=== PATIENT | male | born 1930 ===

== ENCOUNTER 2016-11-18 10:43 | Inpatient (IN) | payer MEDICARE, MEDICAID ==
[2016-11-18] MEDS ORDERED: Sodium Chloride 0.9% 500 ML IV STA (11:31)
[2016-11-18] MEDS ORDERED: methylPREDNISolone 1 GM in Sodium Chloride 0.9% 250 ML IV ONE (11:33)
--- NOTE | 2016-11-18 11:46 | ED PDOC ---
Arrival/HPI - General Chief Complaint: Cough, Cold, Congestion Time Seen by Provider: 11/18/16 11:17 - History of Present Illness Narrative History of Present Illness (Text): 11/18/16 11:37 86 y/o M w/ PMHx of HTN, COPD, PNA, TIA presents to the ED at direction of PMD. Pt was seen in office yesterday was instructed to come to the ED for CXR to r/o PNA. Family @bedside states that pt has had cough x1mon. Family reports pt chills but no fever. Pt denies CP, SOB but family states that during coughing episode, pt unable to catch his breath. Family reports occasional sputum production, especially during coughing episode. Family states that pt has been taking all medications as prescribed. (Cristina Artis) Past Medical History - Provider Review Nursing Documentation Reviewed: Yes - Infectious Disease Hx of Infectious Diseases: None - Tetanus Immunization Tetanus Immunization: Unknown - Cardiac Hx Cardiac Disorders: Yes Hx Hypertension: Yes - Pulmonary Hx Respiratory Disorders: Yes (SMOKED CIGARETTES .QUIT 20 YRS AGO) - Neurological HX Cerebrovascular Accident: Yes (TIA) - HEENT Hx HEENT Disorder: Yes (WEARS RX GLASSES) Hx Cataracts: Yes (WITH BILATERAL IMPLANTS) - Renal Hx Renal Failure: Yes - Endocrine/Metabolic Hx Endocrine Disorders: No - Hematological/Oncological Hx Blood Disorders: No - Integumentary Hx Dermatological Disorder: Yes (MULTIPLE ROUND OLD AGE SPOTS TO FACE,ARMS) - Musculoskeletal/Rheumatological Hx Arthritis: Yes - Gastrointestinal Hx Gastrointestinal Disorders: No - Genitourinary/Gynecological Hx Genitourinary Disorders: Yes Hx Prostate Problems: Yes - Psychiatric Hx Psychophysiologic Disorder: No Hx Substance Use: No - Past Surgical History Past Surgical History: No Previous - Anesthesia Hx Anesthesia: No - Suicidal Assessment Feels Threatened In Home Enviroment: No Family/Social History - Physician Review Nursing Documentation Reviewed: Yes Family/Social History: No Known Family HX Smoking Status: Former Smoker Hx Alcohol Use: Yes (OCCASIONAL WINE H/O) Hx Substance Use: No Hx Substance Use Treatment: No Allergies/Home Meds Allergies/Adverse Reactions: Allergies No Known Allergies Allergy (Verified 11/18/16 10:52) Home Medications: Home Meds Medication Instructions Recorded Confirmed Aspirin [Aspirin Chewable] 81 mg PO DAILY 03/30/16 11/18/16 Ergocalciferol [Drisdol 50,000 1 cap PO DAILY 10/19/16 06/09/17 Intl Units Cap] Fluticasone/Salmeterol 500/50 1 puff PO Q12 03/30/16 11/18/16 [Advair Diskus 500/50] Bisacodyl [Correctol] 5 mg PO BID PRN 11/18/16 11/18/16 Losartan Potassium [Losartan 50 mg PO DAILY 11/18/16 11/18/16 Potassium] Review of Systems - Physician Review All systems were reviewed & negative as marked: Yes - Review of Systems Cardiovascular: absent: Chest Pain Gastrointestinal: absent: Nausea, Vomiting Physical Exam Vital Signs Reviewed: Yes Temperature: Afebrile Blood Pressure: Hypertensive Pulse: Regular Respiratory Rate: Normal Appearance: Positive for: Non-Toxic, Comfortable, Ill-Appearing Pain Distress: None Mental Status: Positive for: Alert and Oriented X 3 - Systems Exam Head: Present: Atraumatic, Normocephalic Pupils: Present: PERRL Extroacular Muscles: Present: EOMI Conjunctiva: Present: Normal Mouth: Present: Moist Mucous Membranes Nose (External): Present: Atraumatic Respiratory/Chest: Present: Good Air Exchange, Wheezes (L basilar), Rhonchi (L basilar). No: Respiratory Distress, Accessory Muscle Use Cardiovascular: Present: Regular Rate and Rhythm, Normal S1, S2. No: Murmurs Abdomen: Present: Normal Bowel Sounds. No: Tenderness, Distention Upper Extremity: Present: Normal Inspection Lower Extremity: Present: Normal Inspection, NORMAL PULSES. No: Edema Neurological: Present: GCS=15, Speech Normal Skin: Present: Warm, Dry, Normal Color Psychiatric: Present: Alert, Normal Affect, Normal Mood Medical Decision Making - Lab Interpretations I have reviewed the lab results: Yes - EKG Interpretation Interpreted by ED Physician: Yes Type: 12 lead EKG ED Course and Treatment: 11/18/16 11:48 86 y/o M w/ cough - CXR - EKG - CBC, CMP - Cardiac ISO, - Duonebs x3 - Solumedrol 125 (Cristina Artis) Patient Seen With Resident: In agreement with resident note which contains more details about the patient. Patient was seen and evaluated with resident. Came up with plan and treatment together. 11/18/16 13:36 pt seen with resdient. h/o of copd, aspiration pna, sent in by pm d for copd r/ o pna. cxr neg, but covered empiraclly. pt with persistent wheezing. poor outpt canndiate. needs iv steriods admission. multiple comorbities. (Ryan Alegre) - Lab Interpretations Lab Results: 11/18/16 11:58 11/18/16 11:58 Lab Results 11/18/16 12:50: PT 10.8, INR 1.00, APTT 27.0 11/18/16 12:10: pO2 94 H, VBG pH 7.39, VBG pCO2 44.0, VBG HCO3 26.6, VBG Total CO2 28.0, VBG O2 Sat (Calc) 99.2 H, VBG Base Excess 1.2, VBG Potassium 3.6, Glucose 104, Lactate 1.9, FiO2 21.0, Sodium 142.0, Chloride 113.0 H, Venous Blood Potassium 3.6 11/18/16 11:58: Sodium 143, Potassium 3.8, Chloride 109 H, Carbon Dioxide 26, Anion Gap 12, BUN 11, Creatinine 1.0, Est GFR ( Amer) > 60, Est GFR (Non- Af Amer) > 60, Random Glucose 109, Calcium 9.1, Total Bilirubin 1.0, AST 30, ALT 26, Alkaline Phosphatase 61, Lactate Dehydrogenase 456, Total Creatine Kinase 32 L, Troponin I 0.03 D, NT-Pro-B Natriuret Pep 792 H, Total Protein 6.9 , Albumin 3.8, Globulin 3.1, Albumin/Globulin Ratio 1.2 11/18/16 11:58: WBC 10.4, RBC 4.60, Hgb 13.0 L, Hct 39.0 L, MCV 84.8, MCH 28.3, MCHC 33.3, RDW 15.9 H, Plt Count 242, MPV 9.8, Gran % 73.8 H, Lymph % (Auto) 17.7 L, Hughes % (Auto) 6.7 H, Eos % (Auto) 1.6, Baso % (Auto) 0.2, Gran # 7.69 H , Lymph # 1.9, Hughes # 0.7 H, Eos # 0.2, Baso # 0.02 - RAD Interpretation Narrative RAD Interpretations (Text): 11/18/16 12:37 CXR: no active disease (Cristina Artis) Radiology Orders: 11/18/16 11:33 CXR [CHEST PORTABLE] [RAD] Stat - EKG Interpretation EKG Interpretation (Text): 11/18/16 12:38 NSR, Rate 70, incomplete RBBB (Cristina Artis) - Medication Orders Current Medication Orders: Albuterol/Ipratropium (Duoneb 3 Mg/0.5 Mg (3 Ml) Ud) 3 ml IH Q4 RYLIE Stop: 11/18/16 20:01 Last Admin: 11/18/16 12:40 Dose: 3 ml Discontinued Medications Furosemide (Lasix) 40 mg IVP STAT STA Stop: 11/18/16 12:51 Last Admin: 11/18/16 12:57 Dose: 40 mg Sodium Chloride (Sodium Chloride 0.9%) 500 mls @ 999 mls/hr IV .Q31M STA Stop: 11/18/16 12:01 Last Admin: 11/18/16 12:15 Dose: 999 mls/hr Metronidazole (Flagyl) 500 mg in 100 mls @ 100 mls/hr IVPB STAT STA PRN Reason: Protocol Stop: 11/18/16 12:51 Last Admin: 11/18/16 12:40 Dose: 100 mls/hr Levofloxacin/Dextrose (Levaquin 750mg) 750 mg IVPB ONCE ONE Stop: 11/18/16 11:56 Methylprednisolone (Solu-Medrol) 125 mg IVP STAT STA Stop: 11/18/16 11:37 Last Admin: 11/18/16 12:40 Dose: 125 mg Disposition/Present on Arrival - Present on Arrival Any Indicators Present on Arrival: No History of DVT/PE: No History of Uncontrolled Diabetes: No Urinary Catheter: No History of Decub. Ulcer: No History Surgical Site Infection Following: None - Disposition Have Diagnosis and Disposition been Completed?: Yes Disposition Time: 12:38 Patient Plan: Observation - Disposition Diagnosis: COPD exacerbation Disposition: HOSPITALIZED Patient Problems: Current Active Problems Problem Status Onset COPD exacerbation Acute Condition: STABLE
[2016-11-18] MEDS ORDERED: metroNIDAZOLE IV 500 mg/100 ml 500 MG/100 ML BAG IVPB STA (11:52)
[2016-11-18] MEDS ORDERED: levoFLOXacin 750 mg in D5W 150 ML BAG IVPB ONE (11:55)
[2016-11-18] MEDS ORDERED: levoFLOXacin 750 mg in D5W 150 ML BAG IVPB SCH (12:00)
[2016-11-18 12:19] LABS: ADD MANUAL DIFF? NO
[2016-11-18 12:21] LABS: BASO # 0.02 K/mm3 (0.0-2.0); BASO % 0.2 % (0.0-3.0); EOS # 0.2 (0.0-0.7); EOS % 1.6 % (1.5-5.0); GRAN # 7.69 (1.4-6.5); GRAN % 73.8 % (50.0-68.0); LYMPH # 1.9 (1.2-3.4); LYMPH % 17.7 % (22.0-35.0); MEAN CELL VOLUME 84.8 fL (80.0-105.0); MEAN CORPUSCULAR HEMOGLOBIN 28.3 pg (25.0-35.0); MEAN CORPUSCULAR HGB CONC 33.3 g/dl (31.0-37.0); MEAN PLATELET VOLUME 9.8 fl (7.0-11.0); MONO # 0.7 (0.1-0.6); MONO % 6.7 % (1.0-6.0); PLATELET COUNT 242 10^3/uL (120.0-450.0); RED CELL DISTRIBUTION WIDTH 15.9 % (11.5-14.5); WHITE BLOOD COUNT 10.4 10^3/ul (4.5-11.0)
[2016-11-18 12:22] LABS: VENOUS BLOOD GAS BASE EXCESS 1.2 mmol/L (0.0-2.0); VENOUS BLOOD PH 7.39 (7.32-7.43)
--- NOTE | 2016-11-18 12:31 | RAD ---
HISTORY: cough COMPARISON: 08/09/2016 FINDINGS: LUNGS: No active pulmonary disease. PLEURA: No significant pleural effusion identified, no pneumothorax apparent. CARDIOVASCULAR: Normal. OSSEOUS STRUCTURES: No significant abnormalities. VISUALIZED UPPER ABDOMEN: Normal. OTHER FINDINGS: None. IMPRESSION: No active disease.
[2016-11-18 12:36] LABS: ALB/GLOB RATIO 1.2 (1.1-1.8); ALKALINE PHOSPHATASE 61 U/L (38-133); ALT/SGPT 26 U/L (7-56); AST/SGOT 30 U/L (15-59); BLOOD UREA NITROGEN 11 mg/dL (7-21); CALCIUM 9.1 mg/dL (8.4-10.5); CARBON DIOXIDE 26 mmol/L (21-33); CHLORIDE 109 mmol/L (98-107); GFR AFRICAN-AMERICAN > 60; GLUCOSE,RANDOM 109 mg/dL (70-110); POTASSIUM 3.8 mmol/L (3.6-5.0); SODIUM 143 mmol/L (132-148); TOTAL PROTEIN 6.9 g/dL (5.8-8.3)
[2016-11-18] MEDS: Albuterol-Ipratrop 3 mg / 0.5 (3 ml) UD IH SCH ×2 (12:40→19:30)
[2016-11-18 12:48] LABS: TROPONIN I 0.03 ng/mL
--- NOTE | 2016-11-18 15:17 | CARD ---
APPROVED REPORT EKG Measurement Heart [id number] <Conclusion> Normal sinus rhythm IRBBB Leftward axis
[2016-11-18] MEDS: Acetylcysteine 20% Inhal Soln (4ml) PO SCH (18:40)
[2016-11-18] MEDS: Arformoterol 15 mcg/2 ml Inh Sol IH SCH (19:30)
[2016-11-18] MEDS: Budesonide 0.5 mg/2 ml Inhal Susp UD IH SCH (19:30)
[2016-11-18 20:29] VITALS: BMI 27.7
--- NOTE | 2016-11-18 21:01 | CON ---
DATE: 11/18/2016 REFERRING PHYSICIAN: Dr. Aguilar. REASON FOR CONSULT: Cough, shortness of breath. HISTORY OF PRESENT ILLNESS: This is an 86-year-old gentleman with past medical history significant for hypertension, chronic obstructive lung disease, recurrent pneumonia, history of TIA. He has been having cough and shortness of breath, unable to clear pulmonary secretion. No nausea, no vomiting, no diarrhea, no leg pain or leg swelling. PAST MEDICAL HISTORY: Chronic obstructive lung disease, hypertension, osteoarthritis, chronic pain s yndrome. SOCIAL HISTORY: He is a smoker. Denies any alcohol use. FAMILY HISTORY: No significant cardiopulmonary disease reported. ALLERGIES: None known. MEDICATIONS: He has received nebulizer treatment in ER, given Solu-Medrol 125 mg 1 dose, Levaquin 7 50 mg daily, Lasix 40 mg was given, also Flagyl 500 mg IV was given. REVIEW OF SYSTEMS: No headache, no rhinitis. Has cough, shortness of breath. No fever, some abdomi nal discomfort, but no nausea, no vomiting, no dysuria. No leg pain or leg swelling. PHYSICAL EXAMINATION: GENERAL: Lying in the bed, mild distress secondary to cough and shortness of breath. VITAL SIGNS: Temp is 98, heart rate is 87, respiratory rate is 20, blood pressure 158/87, pulse ox 9 7% on nasal cannula. HEENT: Moist mucous membrane. Crowded airway. Mallampati score is 4. NECK: Supple. No JVD. LUNGS: Has scattered rhonchi and some crackles. HEART: S1 and S2. ABDOMEN: Soft, nontender. No organomegaly. EXTREMITIES: There is not much edema. NEUROLOGIC: Awake, alert, follows simple commands. LABORATORY DATA: Shows hemoglobin 13.0, hematocrit 39.0, WBC 10.4, platelet count is 242. INR 1.00, PTT is 27. ABG showed pH 7.39, pCO2 44, O2 was 94. Sodium 143, potassium 3.8, chloride 100, bicarb eleonora 26, BUN 11, creatinine 1.0, glucose 109, calcium is 9.1, AST 30, ALT 26, alkaline phosphatase i s 26. LDH is 456, total creatinine kinase is 32, albumin is 3.8. ProBNP 792. Procalcitonin less th an 0.05. Chest x-ray done in the ER shows no active pulmonary disease. IMPRESSION AND PLAN: Chronic obstructive lung disease, hypertension, benign prostatic hypertrophy, d ementia, cardiac diastolic dysfunction, may have oropharyngeal dysphagia. I spoke to patient's son a t bedside. All the questions were answered. We will start him on IV steroids and inhaled bronchodil ator. Gastric prophylaxis. DVT prophylaxis. Diuretics. ____ his blood pressure medication. The p atient is urged to stop smoking. Will get speech therapy to evaluate. Follow up labs in the morning . Thank you and will follow with you. Dl Lynch MD cc: [phone] TT: 11/18/2016 21:00:33 Confirmation # [id number] Dictation # [id number] jn
[2016-11-18] MEDS: MethylPREDNISolone 40 mg Vial IVP SCH (22:05)
[2016-11-19] MEDS: MethylPREDNISolone 40 mg Vial IVP SCH ×3 (06:10→21:25)
[2016-11-19] MEDS: Pantoprazole 40 mg EC Tab PO SCH (06:10)
[2016-11-19 06:54] LABS: ADD MANUAL DIFF? NO
[2016-11-19 07:08] LABS: GRAN % 87.9 % (50.0-68.0); HEMATOCRIT 40.9 % (42.0-52.0); LYMPH # 1.2 (1.2-3.4); LYMPH % 10.6 % (22.0-35.0); MEAN CORPUSCULAR HEMOGLOBIN 28.6 pg (25.0-35.0); MEAN CORPUSCULAR HGB CONC 34.5 g/dl (31.0-37.0); MEAN PLATELET VOLUME 10.1 fl (7.0-11.0); MONO # 0.2 (0.1-0.6); MONO % 1.5 % (1.0-6.0); PLATELET COUNT 275 10^3/uL (120.0-450.0); RED CELL DISTRIBUTION WIDTH 15.8 % (11.5-14.5); WHITE BLOOD COUNT 11.2 10^3/ul (4.5-11.0)
[2016-11-19 07:16] LABS: ALB/GLOB RATIO 1.3 (1.1-1.8); ALKALINE PHOSPHATASE 72 U/L (38-133); ALT/SGPT 29 U/L (7-56); AST/SGOT 31 U/L (15-59); BILIRUBIN,TOTAL 0.9 mg/dL (0.2-1.3); BLOOD UREA NITROGEN 16 mg/dL (7-21); CALCIUM 9.1 mg/dL (8.4-10.5); CARBON DIOXIDE 25 mmol/L (21-33); CHLORIDE 102 mmol/L (98-107); GFR AFRICAN-AMERICAN > 60; GLUCOSE,RANDOM 145 mg/dL (70-110); POTASSIUM 4.3 mmol/L (3.6-5.0); SODIUM 138 mmol/L (132-148); TOTAL PROTEIN 7.3 g/dL (5.8-8.3)
[2016-11-19] MEDS: Arformoterol 15 mcg/2 ml Inh Sol IH SCH ×2 (08:02→21:19)
[2016-11-19] MEDS: Budesonide 0.5 mg/2 ml Inhal Susp UD IH SCH ×2 (08:03→21:20)
[2016-11-19] MEDS: Enoxaparin 40 mg Syringe SC SCH (09:33)
[2016-11-19] MEDS ORDERED: Ergocalciferol 50,000 Intl Units Cap PO SCH (10:00)
[2016-11-19] MEDS: Acetylcysteine 20% Inhal Soln (4ml) PO SCH ×2 (12:07→18:19)
--- NOTE | 2016-11-19 17:03 | PN ---
DATE: 11/19/2016 REFERRING PHYSICIAN: Dr. Scherer SUBJECTIVE: He is sitting side of the bed, feels better, tolerated BiPAP well. Cough decreased. Sh ortness of breath is better. No nausea, no vomiting, no diarrhea, no leg pain or leg swelling. OBJECTIVE: GENERAL: No acute distress. VITAL SIGNS: Temperature is 98, heart rate is 98, respiratory rate is 20, blood pressure 167/77, pul se ox 97% on BiPAP at 35% oxygen. HEENT: Small oral cavity. Crowded airway. NECK: Supple. No JVD. LUNGS: Has a few crackles, prolonged expiratory phase. HEART: S1 and S2. ABDOMEN: Soft, nontender. No organomegaly. EXTREMITIES: Not much edema. NEUROLOGIC: Awake, alert, follows simple command. MEDICATIONS: He is on Mucomyst 20% inhaled twice a day, aspirin 81 mg daily, Brovana mcg inhal ed twice a day, Cozaar 50 mg daily, doxycycline 100 mg twice a day, vitamin D 50,000 units daily, Las ix 20 mg daily, Lovenox 40 mg subQ daily, Protonix 40 mg daily, Pulmicort inhaled twice a day, Solu-M edrol 40 mg IV q. 8 hours, Tylenol on a p.r.n. basis. LABORATORY DATA: Shows hemoglobin 14.1, hematocrit 40.9, WBC 11.2, platelets 275. Sodium 138, potas sium 4.3, chloride 102, bicarbonate 25, BUN 16, creatinine 1.2, glucose is 145, calcium 9.1, AST 31, ALT , alkaline phosphatase is 72, and albumin is 4.0. Chest x-ray shows no infiltrate or effusi on. IMPRESSION AND PLAN: Chronic obstructive lung disease, hypertension, benign prostatic hypertrophy, d ementia, cardiac diastolic dysfunction, may have oropharyngeal dysphagia. Pulmonary point of view, génesis stone is doing much better. Continue IV and inhaled bronchodilator. We will decrease the dose. Gastric and deep venous thrombosis prophylaxis, antibiotics. Encourage BiPAP use at nighttime. We will ord er followup labs in the morning and will follow with you. Dl Lynch MD cc: [phone] TT: 11/19/2016 17:03:04 Confirmation # [id number] Dictation # [id number] dn
[2016-11-19] MEDS ORDERED: guaiFENesin 100 mg/5 ml Syrup UD PO STA (21:04)
[2016-11-20] MEDS: Pantoprazole 40 mg EC Tab PO SCH (05:33)
[2016-11-20] MEDS: MethylPREDNISolone 40 mg Vial IVP SCH ×3 (05:33→21:39)
--- NOTE | 2016-11-20 07:25 | PN ---
DATE: 11/19/2016 SUBJECTIVE: The patient seems a little better. Feels better. Less respiratory distress and his cou solomon is ____. PHYSICAL EXAMINATION: VITAL SIGNS: Temperature 98.3, heart rate 98, blood pressure 167/77, respiration 20. HEAD AND NECK: Normal. No JVD or thyromegaly. CHEST: Clear. Less wheeze. CARDIAC: First sound, second sound normal. ABDOMEN: Soft, nontender. EXTREMITIES: No edema. NEUROLOGIC: Normal. LABORATORY DATA: Sodium 138, potassium 4.3, chloride 102, bicarb 25, BUN 16, creatinine 1.2, blood s ugar 145. Liver function test is normal. His hematology, CBC: White count 11.2, hemoglobin 14.1, h ematocrit 40.9, platelets 272. PT, PTT was normal. ABG shows pO2 of 94, pH 7.39, pCO2 44. IMPRESSION AND PLAN: 1. Acute chronic obstructive pulmonary disease exacerbation. Continue IV steroids. Continue inhale d bronchodilators. Currently, the patient ____ is getting doxycycline 100 mg IV daily. The patient seems to be doing better. Will continue current therapy. 2. Hypertension, uncontrolled. Will increase his Cozaar to 100 mg daily, Norvasc ____ added 2.5 mg and increase to 5 mg. Will follow up clinically. 3. Generalized weakness. Will start physical therapy. Continue GI and DVT prophylaxis. Follow up with consultants. 4. Dementia. Will add ____. Continue aspirin. The patient does have a history of stroke with no r esidual deficits. Continue aspirin daily 81 mg p.o. daily. Cody Aguilar MD cc: [phone] TT: 11/20/2016 07:24:50 Confirmation # [id number] Dictation # [id number] mn
[2016-11-20] MEDS: Budesonide 0.5 mg/2 ml Inhal Susp UD IH SCH ×2 (07:49→20:08)
[2016-11-20] MEDS: Arformoterol 15 mcg/2 ml Inh Sol IH SCH ×2 (07:49→20:08)
[2016-11-20 07:50] LABS: ALB/GLOB RATIO 1.3 (1.1-1.8); ALKALINE PHOSPHATASE 64 U/L (38-133); ALT/SGPT 29 U/L (7-56); AST/SGOT 37 U/L (15-59); BILIRUBIN,TOTAL 0.8 mg/dL (0.2-1.3); BLOOD UREA NITROGEN 25 mg/dL (7-21); CALCIUM 8.7 mg/dL (8.4-10.5); CARBON DIOXIDE 22 mmol/L (21-33); CHLORIDE 101 mmol/L (95-110); GFR AFRICAN-AMERICAN > 60; GLUCOSE,RANDOM 111 mg/dL (70-110); POTASSIUM 3.6 mmol/L (3.6-5.0); SODIUM 137 mmol/L (132-148); TOTAL PROTEIN 7.1 g/dL (5.8-8.3)
[2016-11-20] MEDS: Acetylcysteine 20% Inhal Soln (4ml) PO SCH ×2 (09:54→17:50)
[2016-11-20] MEDS: Enoxaparin 40 mg Syringe SC SCH (14:40)
--- NOTE | 2016-11-20 17:38 | PN ---
DATE: 11/20/2016 REFERRING PHYSICIAN: Dr. Aguilar. SUBJECTIVE: He is sitting side of the bed. Family is at bedside, having lunch, feels a little ariel r, decreased cough, decreased shortness of breath. No nausea, vomiting, diarrhea. No leg pain or le g swelling. OBJECTIVE: GENERAL: In no acute distress. VITAL SIGNS: Temp is 98, heart rate 74, respiratory rate is 18, blood pressure 184/88, pulse ox 93% on room air. HEENT: Moist mucous membrane. Crowded airway. Mallampati score is 4. NECK: Supple. No JVD. LUNGS: Has a fair airflow with few crackles at the bases, prolonged expiratory phase. HEART: S1, S2. ABDOMEN: Soft, nontender. No organomegaly. EXTREMITIES: There is no edema. NEUROLOGIC: Awake, alert, follows simple commands. MEDICATIONS: He is on Mucomyst 20% inhaled by ID, Aricept 5 mg at bedtime, aspirin 81 mg daily, Brov babita 15 mcg inhaled twice a day, clonidine 0.1 mg q. 6 hours p.r.n., Cozaar 100 mg daily, doxycycline 100 mg twice a day, vitamin D 50,000 units weekly, Lasix 20 mg daily, Lovenox 40 mg daily, Norvasc 10 mg daily, Protonix 40 mg daily, Pulmicort inhaled twice a day, Solu-Medrol 20 mg q. 8 hours, Tylenol p.r.n. basis. LABORATORY DATA: Shows sodium 137, potassium 3.6, chloride 101, bicarbonate 22, BUN 25, creatinine 1 .3, glucose 111, calcium 8.7, total bilirubin 0.8, AST 37, ALT 29, alk phos is 64, albumin is 4.0. IMPRESSION AND PLAN: Chronic obstructive lung disease, hypertension, benign prostatic hypertrophy, d ementia, cardiac diastolic dysfunction, oropharyngeal dysphagia. Pulmonary point of view, doing well . Continue IV and inhaled bronchodilator, aspiration precautions, gastric prophylaxis, deep venous t hrombosis prophylaxis, diuretics. Encourage BiPAP use. Fall precautions. Thank you and will follow with you. Dl Lynch MD cc: [phone] TT: 11/20/2016 17:38:34 Confirmation # [id number] Dictation # [id number] rn
--- NOTE | 2016-11-21 00:29 | PN ---
DATE: 11/20/2016 HISTORY OF PRESENT ILLNEES: The patient seems to be doing better. No chest pain. Still coughing, b ut less than before. PHYSICAL EXAMINATION: VITAL SIGNS: Temperature 97.7, heart rate 74, blood pressure 184/88, respirations 18. HEAD AND NECK: Normal. No JVD, no thyromegaly. CHEST: Few rhonchi. CARDIAC: First and second sounds normal. ABDOMEN: Soft, nontender. EXTREMITIES: No edema. NEUROLOGIC: Normal. LABORATORY STUDIES: Sodium 137, potassium 3.6, chloride 101, bicarbonate 22, BUN 25, creatinine 1.3, blood sugar 111, liver function test is normal. IMPRESSION AND PLAN: 1. Acute chronic obstructive pulmonary disease exacerbation. Continue IV steroids. Continue inhale d bronchodilators, IV antibiotics, seems to be doing better. 2. Hypertension seems uncontrolled. Will add Norvasc 10 mg. Follow up blood pressure daily basis. 3. Generalized weakness. Needs physical therapy. TCU evaluation for physical therapy. 4. Prostate enlargement, dementia, has weakness. PLAN: To continue current therapy, Aricept, Tylenol. Continue Lasix, losartan, Catapres, Brovana, a spirin, Aricept, Mucomyst. Continue current therapy and follow up clinically. Cody Aguilar MD cc: 223 TT: 11/21/2016 00:28:41 Confirmation # [id number] Dictation # [id number] mn
[2016-11-21] MEDS: MethylPREDNISolone 40 mg Vial IVP SCH ×3 (05:29→23:07)
[2016-11-21] MEDS: Pantoprazole 40 mg EC Tab PO SCH (05:30)
[2016-11-21] MEDS: Arformoterol 15 mcg/2 ml Inh Sol IH SCH ×2 (08:18→19:51)
[2016-11-21] MEDS: Budesonide 0.5 mg/2 ml Inhal Susp UD IH SCH ×2 (08:19→19:51)
--- NOTE | 2016-11-21 08:51 | HP ---
His main reason for coming to the hospital is coughing, short of breath. Please be advised that hist ory and physical I am dictating was on 11/18/2016. HISTORY OF PRESENT ILLNESS: The patient is an 86-year-old male, history of COPD, hypertension, demen tia, chronic osteoarthritis. Came into the hospital because of short of breath, cough and not gettin g better with Medrol pack, Z-Tyson and nebulizer treatment at home. The patient came today ____ compla ined of ____. He has no fever ____ persistent cough that he could not sleep at night. There is no c hest pain. He feels weak. No nausea, no vomiting, no diarrhea. PAST MEDICAL HISTORY: The patient has COPD, hypertension, dementia, chronic osteoarthritis. ALLERGIES: No known allergies. HOME MEDICATIONS: He takes ____ 50 mg p.o. daily, ____ p.o. daily, ____ nebulizer treatment, Advair, Ventolin, vitamin D, aspirin, Aricept. REVIEW OF SYSTEMS: As in present illness. The patient has dementia, has memory loss, has weakness, gait problem. PHYSICAL EXAMINATION: On 11/18/2016: VITAL SIGNS: The patient has temperature 97.6, heart rate 72, blood pressure ____/81, respirations 2 0, saturation 96% on room air. HEAD AND NECK: Normal, no JVD. CHEST: Bilateral wheeze. CARDIAC: First sound, second sound normal. ABDOMEN: Soft, nontender. EXTREMITIES: No edema. NEUROLOGIC: Except for dementia, the patient is awake and alert. LABORATORY STUDIES: The patient had on 11/18/2016 white count 10.4, hemoglobin 13, hematocrit 39, yakov telets 242. Chemistry: Sodium 143, potassium 3.8, chloride 109, bicarb 26, BUN 11, creatinine ____. Liver function test is normal. Troponin 0.03, a little bit elevated. ProBNP 792. The patient also had a chest x-ray, which is reported as no active pulmonary disease. The patient al so had an EKG done in Emergency Room, shows ____ sinus rhythm ____. IMPRESSION AND PLAN: 1. This is an 86-year-old male with history of dementia, chronic obstructive pulmonary disease, fail ed outside treatment for chronic obstructive pulmonary disease. Came in with acute chronic obstructi ve pulmonary disease exacerbation. Will admit the patient for IV antibiotics, IV steroids, inhaled b ronchodilators, pulmonary consult. 2. Blood pressure, hypertension. Controlled with ____ blood pressure medicine. Monitor his blood p ressure. Continue therapy. 3. Generalized weakness. The patient may need physical therapy. Continue Lasix 20 p.o. daily. Con tinue gastrointestinal and deep venous thrombosis prophylaxis. Follow up clinically. Cody Aguilar MD cc: 223 TT: 11/20/2016 08:50:42 en
[2016-11-21] MEDS: Acetylcysteine 20% Inhal Soln (4ml) PO SCH (10:49)
[2016-11-21] MEDS: Enoxaparin 40 mg Syringe SC SCH (10:55)
--- NOTE | 2016-11-22 02:07 | PN ---
DATE: 11/21/2016 REFERRING PHYSICIAN: Dr. Aguilar. SUBJECTIVE: The patient is sitting on side of the bed, night was unremarkable. No headache, no rhin itis, no nausea, no vomiting, no diarrhea. No leg pain or leg swelling. OBJECTIVE: GENERAL: No acute distress. VITAL SIGNS: Temp is 98, heart rate 65, respiratory rate is 18, blood pressure 117/68. HEENT: Moist mucous membrane. No ulcer or oral thrush noted. NECK: Supple. No JVD. LUNGS: Has a fair airflow with few rhonchi. HEART: S1 and S2. ABDOMEN: Soft, nontender. No organomegaly. EXTREMITIES: There is no edema. NEUROLOGIC: Awake, alert, follows simple command. MEDICATIONS: He is on Mucomyst 20% inhaled twice a day, Aricept 5 mg at bedtime, aspirin 81 mg daily , Brovana 15 mcg inhaled twice a day, clonidine 0.1 mg q. 6 hours p.r.n., Cozaar 100 mg daily, doxycy eubanks 100 mg twice a day, vitamin D 50,000 units weekly, Lasix 20 mg daily, Lovenox 40 mg daily, Norv asc 10 mg daily, Protonix 40 mg daily, Pulmicort inhaled twice a day, Solu-Medrol 20 mg IV q. 8 hours , Tylenol on a p.r.n. basis. LABORATORY DATA: Reviewed. No new lab is available since yesterday. IMPRESSION AND PLAN: Chronic obstructive lung disease, hypertension, benign prostatic hypertrophy, d ementia, cardiac diastolic dysfunction, oropharyngeal dysphagia. Pulmonary point of view, doing okay y. Continue diuretics, gastric and deep venous thrombosis prophylaxis, bronchodilators. Encourage B iPAP use. Will need attended sleep study as an outpatient. Start physical therapy. Fall precaution s. Thank you and will follow with you. Dl Lynch MD cc: 336 TT: 11/22/2016 02:07:13 Confirmation # [id number] Dictation # [id number] mn
[2016-11-22] MEDS: MethylPREDNISolone 40 mg Vial IVP SCH ×3 (06:07→21:41)
[2016-11-22] MEDS: Pantoprazole 40 mg EC Tab PO SCH (06:08)
[2016-11-22] MEDS: Arformoterol 15 mcg/2 ml Inh Sol IH SCH ×2 (07:47→19:36)
[2016-11-22] MEDS: Budesonide 0.5 mg/2 ml Inhal Susp UD IH SCH ×2 (07:47→19:36)
[2016-11-22] MEDS: Enoxaparin 40 mg Syringe SC SCH (10:31)
[2016-11-22] MEDS: Promethazine/Cod 6.25mg-10mg/5ml Syr UD PO SCH ×3 (16:20→21:41)
--- NOTE | 2016-11-22 19:22 | PN ---
DATE: 11/22/2016 REFERRING PHYSICIAN: Dr. Aguilar. SUBJECTIVE: The patient is lying in the bed, head at 45 degrees, not very compliant with the BiPAP, has a cough, not much sputum production. No nausea, no vomiting, diarrhea. No leg pain or leg swell ing. OBJECTIVE: GENERAL: No acute distress. VITAL SIGNS: Temp is 98, heart rate is 65, respiratory rate is 18, blood pressure of 129/64, pulse o x 96% on 2 liters nasal cannula. HEENT: Moist mucous membranes. Crowded airway. NECK: Supple. No JVD. LUNGS: Has scattered rhonchi. HEART: S1 and S2. ABDOMEN: Soft, nontender. No organomegaly. EXTREMITIES: There is no edema. NEUROLOGIC: Awake, alert, follows simple command. MEDICATIONS: He is on Mucomyst 20% inhaled twice a day, Aricept 5 mg at bedtime, aspirin 81 mg daily , Brovana 15 mcg inhaled twice a day, clonidine 0.1 mg q. 6 hours p.r.n., Cozaar 100 mg daily, doxycy eubanks 100 mg twice a day, vitamin D 50,000 units weekly, Lasix 20 mg daily, Lovenox 40 mg daily, Norv asc 10 mg daily, promethazine with codeine and q.i.d., Protonix 40 mg daily, Pulmicort inhaled twice a day, Solu-Medrol 20 mg q. 8 hours, Tylenol on a p.r.n. basis. LABORATORY DATA: Reviewed and noted. No new lab is available since yesterday. IMPRESSION AND PLAN: Chronic obstructive lung disease, hypertension, benign prostatic hypertrophy, d ementia, cardiac diastolic dysfunction, oropharyngeal dysphagia. Continue to encourage CPAP use. Ke ep head elevated at 45 degrees. Continue diuretics, intravenous and inhaled bronchodilators, supplem ental oxygen. Follow up labs in the morning. Out of bed to chair. Fall precaution. Thank you and we will follow with you. Dl Lynch MD cc: 336 TT: 11/22/2016 19:21:45 Confirmation # [id number] Dictation # [id number] tn
[2016-11-22] MEDS: Acetylcysteine 20% Inhal Soln (4ml) IH SCH (19:36)
[2016-11-23] MEDS: MethylPREDNISolone 40 mg Vial IVP SCH ×3 (05:45→22:11)
[2016-11-23] MEDS: Pantoprazole 40 mg EC Tab PO SCH (05:45)
[2016-11-23 07:06] LABS: HEMATOCRIT 40.6 % (42.0-52.0); MEAN CORPUSCULAR HEMOGLOBIN 28.2 pg (25.0-35.0); MEAN PLATELET VOLUME 10.1 fl (7.0-11.0); RED CELL DISTRIBUTION WIDTH 15.8 % (11.5-14.5); WHITE BLOOD COUNT 12.4 10^3/ul (4.5-11.0)
[2016-11-23 07:11] LABS: ALB/GLOB RATIO 1.2 (1.1-1.8); ALKALINE PHOSPHATASE 56 U/L (38-133); ALT/SGPT 52 U/L (7-56); AST/SGOT 37 U/L (15-59); BLOOD UREA NITROGEN 29 mg/dL (7-21); CARBON DIOXIDE 26 mmol/L (21-33); CHLORIDE 103 mmol/L (95-110); GFR AFRICAN-AMERICAN > 60; GLUCOSE,RANDOM 112 mg/dL (70-110); POTASSIUM 3.5 mmol/L (3.6-5.0); SODIUM 138 mmol/L (132-148); TOTAL PROTEIN 6.1 g/dL (5.8-8.3)
[2016-11-23] MEDS: Budesonide 0.5 mg/2 ml Inhal Susp UD IH SCH ×2 (08:05→19:19)
[2016-11-23] MEDS: Arformoterol 15 mcg/2 ml Inh Sol IH SCH ×2 (08:05→19:18)
[2016-11-23] MEDS: Acetylcysteine 20% Inhal Soln (4ml) IH SCH ×2 (08:05→19:18)
[2016-11-23] MEDS: Enoxaparin 40 mg Syringe SC SCH (09:54)
[2016-11-23] MEDS: Promethazine/Cod 6.25mg-10mg/5ml Syr UD PO SCH ×4 (09:54→22:12)
--- NOTE | 2016-11-23 10:44 | PN ---
DATE: 11/21/2016 The patient is doing better, less coughing, no chest pain, but still coughing. PHYSICAL EXAMINATION: On 11/21/2016 is as follows: VITAL SIGNS: Temperature is 98.2, heart rate 61, blood pressure 121/62, respirations 19, saturating 96% on 3 liters. HEAD AND NECK: Normal. No JVD, no thyromegaly. CHEST: Clear. Few rhonchi right and left, both lungs. CARDIAC: First and second sounds normal. ABDOMEN: Soft. EXTREMITIES: No edema. NEUROLOGIC: Generally weak. LABORATORY DATA: Last labs were white count 11.2, hemoglobin 14.1, hematocrit 40.9, platelets 275. His chemistry noted for sodium 137, potassium 3.6, chloride 101, bicarbonate 22, BUN 25, creatinine 1 .3, blood sugar is 111. Liver function test is normal. IMPRESSION AND PLAN: 1. Acute chronic obstructive pulmonary disease exacerbation. Continue IV steroids. Continue IV ant ibiotics. The patient seems to be improving. Continue Mucomyst and we may add Phenergan with codein e for his cough. 2. Hypertension. Continue current treatment, Norvasc 10 mg plus Cozaar. Blood pressure is stable. Clonidine p.r.n. 3. History of fluid overload, congestive heart failure in the past. Continue Lasix. 4. History of transient ischemic attack, dementia. Continue aspirin, Aricept. Getting physical the rapy . Cody Aguilar MD cc: 223 TT: 11/23/2016 10:44:01 Confirmation # [id number] Dictation # [id number]
--- NOTE | 2016-11-23 10:50 | PN ---
DATE: 11/22/2016 The patient is an 86-year-old male. He is comfortable, less coughing now. He is very weak, still on steroids and inhaled bronchodilators, feels better, waiting for TCU. PHYSICAL EXAMINATION: VITAL SIGNS: Temperature 98, heart rate 71, blood pressure is 155/79, respiration 19. HEAD AND NECK: Normal. No JVD, no thyromegaly. CHEST: Clear, good air entry. A few rhonchi on the bases, otherwise clear. CARDIAC: First sound, second sound normal. ABDOMEN: Soft, nontender. EXTREMITIES: No edema. NEUROLOGIC: Normal. LABORATORY DATA: For tomorrow. IMPRESSION AND PLAN: 1. Acute chronic obstructive pulmonary disease exacerbation. Continue IV and inhaled bronchodilator s, continue nebulizer treatment. 2. Generalized weakness. The patient is getting physical therapy. TCU evaluation for continuation of physical therapy and IV therapy. 3. Hypertension, hypercholesterolemia. Continue current medications, Norvasc and Cozaar. 4. History of transient ischemic attacks, dementia. Continue Aricept. Continue aspirin and follow up clinically. The patient is stable. Continue current treatment. We will follow up clinically. Cody Aguilar MD cc: 223 TT: 11/23/2016 10:49:19 Confirmation # [id number] Dictation # [id number]
[2016-11-23] MEDS ORDERED: Potassium Chloride 20 mEq ER Tab PO ONE (13:31)
--- NOTE | 2016-11-23 15:16 | PN ---
DATE: 11/23/2016 REFERRING PHYSICIAN: Dr. Aguilar SUBJECTIVE: He is lying in the bed, head at 45 degrees, still has some cough and shortness of breath . No nausea, vomiting, diarrhea. No leg pain or leg swelling. OBJECTIVE: GENERAL: No acute distress. VITAL SIGNS: Temperature is 98, heart rate is 60, respiratory rate is 20, blood pressure 134/64. HEENT: Moist mucous membrane. Crowded airway. NECK: Supple. No JVD. LUNGS: Scattered rhonchi. HEART: S1 and S2. ABDOMEN: Soft, nontender. No organomegaly. EXTREMITIES: There is no edema. NEUROLOGIC: Sleepy, arousable, follows simple commands. MEDICATIONS: He is on Mucomyst 20% inhaled twice a day, Aricept 5 mg at bedtime, aspirin 81 mg daily , Brovana 15 mcg inhaled twice a day, clonidine 0.1 mg q. 6 hours p.r.n., Cozaar 100 mg daily, doxy cycline 100 mg twice a day, vitamin D 50,000 units weekly, Lasix 20 mg daily, Lovenox 40 mg daily, No rvasc 10 mg daily, Phenergan with codeine 5 mL q.i.d., Protonix 40 mg daily, Pulmicort inhaled twice a day, Solu-Medrol 20 mg q. 8 hours, Tylenol on a p.r.n. basis. LABORATORY DATA: Shows hemoglobin 13.8, hematocrit 40.6, WBC 12.4, platelet is 242. Sodium 138, pot assium 3.5, chloride 103, bicarbonate 26, BUN 29, creatinine 1.1, glucose 112, calcium 8.0, AST 37, A LT 52, alkaline phosphatase is 56, albumin is 3.3. IMPRESSION AND PLAN: Chronic obstructive lung disease, hypertension, benign prostatic hypertrophy, d ementia, cardiac diastolic dysfunction, oropharyngeal dysphagia, may have sleep apnea syndrome, does not use CPAP. We will decrease Solu-Medrol to 20 q. hours. Continue a small dose of diuretics, gas tric prophylaxis. Fall precaution. Aspiration precaution. Thank you and will follow with you. Dl Lynch MD cc: [phone] TT: 11/23/2016 15:15:15 Confirmation # [id number] Dictation # [id number]
[2016-11-24] MEDS: Pantoprazole 40 mg EC Tab PO SCH (05:34)
[2016-11-24 06:03] VITALS: O2SAT 95
[2016-11-24] MEDS: Arformoterol 15 mcg/2 ml Inh Sol IH SCH (07:39)
[2016-11-24] MEDS: Acetylcysteine 20% Inhal Soln (4ml) IH SCH (07:39)
[2016-11-24] MEDS: Budesonide 0.5 mg/2 ml Inhal Susp UD IH SCH (07:39)
--- NOTE | 2016-11-24 08:52 | PN ---
DATE: 11/23/2016 The patient seems to be doing well. Less short of breath, less cough. He is comfortable. No distre ss. PHYSICAL EXAMINATION: VITAL SIGNS: Temperature is 98, heart rate is 56, blood pressure 110/54, respirations 20, saturation 94% on nasal cannula. HEAD AND NECK: Normal. No JVD, no thyromegaly. CHEST: Clear, good air entry. CARDIAC: First sound, second sound normal. ABDOMEN: Soft, nontender. EXTREMITIES: No edema. NEUROLOGIC: Normal. LABORATORY DATA: White count 12.4, hemoglobin 13.8, hematocrit 40.6, platelets 242. Chemistry: Sod ium 138, potassium 3.5, chloride 103, bicarb 26, BUN 29, creatinine 1.2. Liver function test is norm al. IMPRESSION AND PLAN: 1. Acute chronic obstructive pulmonary disease exacerbation. Continue IV steroids, inhaled bronchod ilators. The patient is doing much better now. He is on doxycycline. 2. Hypertension. Continue Cozaar 100 mg p.o. daily in addition to amlodipine 10 mg p.o. daily. 3. Dementia, history of transient ischemic attack. Continue aspirin, continue Aricept. 4. Generalized weakness. Continue physical therapy. Continue GI and DVT prophylaxis. The patient seems stable. He needs TCU. If we can get him some time there to help him with the gait and physica l therapy it will be better. Continue current treatment. Continue Lasix 20 mg p.o. daily. Cody Aguilar MD cc: 223 TT: 11/24/2016 08:51:36 Confirmation # [id number] Dictation # [id number]
[2016-11-24] MEDS: Enoxaparin 40 mg Syringe SC SCH (10:41)
[2016-11-24] MEDS: Promethazine/Cod 6.25mg-10mg/5ml Syr UD PO SCH ×2 (10:42→14:42)
[2016-11-24] MEDS: MethylPREDNISolone 40 mg Vial IVP SCH (10:42)
[2016-11-24 12:59] VITALS: BP 134/67; PULSE 57; RESP 20; TEMP 98.5
--- NOTE | 2016-11-25 14:17 | DS ---
The patient clinically stable and improving. He has decreased short of breath, decrease coughing, af ebrile, no distress and seems to be doing very well. PHYSICAL EXAMINATION: VITAL SIGNS: On 11/24, temperature 98.5, heart rate 57, blood pressure 134/67, respirations 20, satu ration 97%. HEAD AND NECK: Normal. No JVD, no thyromegaly. CHEST: Clear. CARDIAC: First and second heart sounds normal. ABDOMEN: Soft, nontender. EXTREMITIES: No edema. NEUROLOGIC: Normal, able to walk. LABORATORY DATA: The patient had a chest x-ray, shows no pneumonia. Last lab shows white count 12.4 , hemoglobin 16.8, hematocrit 40.6, platelets 242. Chemistry showed sodium 138, potassium 3.5, chlor fl[place] 103, bicarbonate 26, BUN 29, creatinine 1.1, blood sugar 112. Potassium was corrected. ABGs, pO 2 94, pH 7.39, pCO2 44. Lactic acid 1.9 on room air. DISCHARGE DIAGNOSES: Acute chronic obstructive pulmonary disease exacerbation. PLAN: 1. Discharge the patient on Medrol pack, the patient has it, and Levaquin p.o. 2. Hypertension. 3. Hypercholesterolemia. 4. Dementia. MEDICATIONS: The patient has all his meds which include losartan, nebulizers and inhalers, Advair, v itamin D, Levaquin, Medrol pack, and Norvasc 10 mg. We will see the patient in the office within a week. Cody Aguilar MD cc: 223 TT: 11/25/2016 14:16:24 ln
== END 2016-11-24 15:57 | disposition home or self-care (01) | DRG 191 ==
LOC: ED 10:43 → ERH 12:51 → 2RNO 15:23
PROVIDERS: ADMIT Internal Medicine; ATTEND Internal Medicine
PROC: 5A09357 Assistance with Respiratory Ventilation, Less than 24 Consecutive Hours, Continuous Positive Airway Pressure (ICD-10-PCS; principal; 2016-11-18)
DX: J44.1 Chronic obstructive pulmonary disease with (acute) exacerbation (principal); I50.30 Unspecified diastolic (congestive) heart failure; I11.0 Hypertensive heart disease with heart failure; M19.90 Unspecified osteoarthritis, unspecified site; G89.4 Chronic pain syndrome; F03.90 Unspecified dementia, unspecified severity, without behavioral disturbance, psychotic disturbance, mood disturbance, and anxiety; N40.0 Benign prostatic hyperplasia without lower urinary tract symptoms; R13.12 Dysphagia, oropharyngeal phase; E78.00 Pure hypercholesterolemia, unspecified; G47.30 Sleep apnea, unspecified; F17.200 Nicotine dependence, unspecified, uncomplicated; R53.1 Weakness; Z79.82 Long term (current) use of aspirin; Z86.73 Personal history of transient ischemic attack (TIA), and cerebral infarction without residual deficits

== ENCOUNTER 2016-12-06 16:08 | Inpatient (IN) | payer MEDICAID, MEDICARE ==
[2016-12-06 16:08] VITALS: BMI 27.7
--- NOTE | 2016-12-06 16:24 | ED PDOC ---
Arrival/HPI - General Time Seen by Provider: 12/06/16 16:10 Historian: EM Caveat: Dementia - History of Present Illness Narrative History of Present Illness (Text): 12/06/16 16:21 86 y/o male, pmh including htn/copd/bph/demantia/osteoarthritis/TIA, nkda, recently discharged from the hospital about 10 days ago, biba with the daughter for increase coughing/fever/fatigue and decrease in appetize for the past 2 days. Pt. is on the po levaquin on day 7 at home as per the daughter, been decrease in energy and decrease in appetize for the past 2 days, coughing excessively, started to have fever today with febrile 101.5F in the ER, no recent traveling, no nausea or vomiting, no diarrhea, no rash, no neck stiffness , no other medical or psychological complaints. Past Medical History - Provider Review Nursing Documentation Reviewed: Yes - Infectious Disease Hx of Infectious Diseases: None - Tetanus Immunization Tetanus Immunization: Unknown - Cardiac Hx Hypertension: Yes - Pulmonary Hx Chronic Obstructive Pulmonary Disease (COPD): Yes - Neurological Hx Transient Ischemic Attacks (TIA): Yes - HEENT Hx Cataracts: Yes - Renal Hx Renal Failure: Yes - Endocrine/Metabolic Hx Endocrine Disorders: No - Hematological/Oncological Hx Blood Disorders: No - Integumentary Hx Dermatological Disorder: Yes (MULTIPLE ROUND OLD AGE SPOTS TO FACE,ARMS) - Musculoskeletal/Rheumatological Hx Arthritis: Yes - Gastrointestinal Hx Gastrointestinal Disorders: No - Genitourinary/Gynecological Hx Prostate Problems: Yes - Psychiatric Hx Psychophysiologic Disorder: No Hx Substance Use: No - Past Surgical History Past Surgical History: No Previous - Anesthesia Hx Anesthesia: No - Suicidal Assessment Feels Threatened In Home Enviroment: No Family/Social History - Physician Review Nursing Documentation Reviewed: Yes Family/Social History: Unknown Family HX Smoking Status: Former Smoker Hx Alcohol Use: Yes (OCCASIONAL WINE H/O) Hx Substance Use: No Hx Substance Use Treatment: No Allergies/Home Meds Allergies/Adverse Reactions: Allergies No Known Allergies Allergy (Verified 12/06/16 16:19) Home Medications: Home Meds Medication Instructions Recorded Confirmed Aspirin [Aspirin Chewable] 81 mg PO DAILY 03/30/16 11/18/16 Ergocalciferol [Drisdol 50,000 1 cap PO DAILY 03/30/16 11/18/16 Intl Units Cap] Fluticasone/Salmeterol 500/50 1 puff PO Q12 03/30/16 11/18/16 [Advair Diskus 500/50] Bisacodyl [Correctol] 5 mg PO BID PRN 11/18/16 11/18/16 Losartan Potassium [Losartan 50 mg PO DAILY 11/18/16 11/18/16 Potassium] Review of Systems - Review of Systems Systems not reviewed;Unavailable: Dementia Constitutional: Fatigue, Fevers Eyes: absent: Vision Changes ENT: absent: Hearing Changes Respiratory: Cough. absent: SOB, Sputum, Wheezing Cardiovascular: absent: Chest Pain Gastrointestinal: absent: Abdominal Pain, Diarrhea, Nausea, Vomiting Skin: absent: Rash, Pruritis, Skin Lesions Neurological: absent: Facial Droop, Seizure Endocrine: absent: Diaphoresis Physical Exam - Physical Exam Physical Exam Limitations: Other (demantia) Vital Signs Temp Pulse Resp BP Pulse Ox 12/06/16 22:20 88 18 119/63 96 12/06/16 20:11 94 H 134/78 95 12/06/16 18:39 98.1 F 103 H 20 169/81 H 94 L 12/06/16 18:19 101.2 F H 12/06/16 18:00 110 H 20 138/68 96 12/06/16 16:25 101.5 F H 99 H 20 160/99 H 94 L - Systems Exam Head: Present: Atraumatic, Normocephalic Pupils: Present: PERRL Extroacular Muscles: Present: EOMI Conjunctiva: Present: Normal Ears: Present: NORMAL TM, Normal Canal. No: Erythema Mouth: Present: Moist Mucous Membranes Neck: Present: Normal Range of Motion Respiratory/Chest: Present: Decreased Breath Sounds, Rhonchi (noted on the rt. midlobe region). No: Respiratory Distress, Accessory Muscle Use, Rales, Retracting, Tachypneic Cardiovascular: Present: Regular Rate and Rhythm, Normal S1, S2. No: Murmurs Abdomen: Present: Normal Bowel Sounds. No: Tenderness, Distention, Peritoneal Signs, Rebound, Guarding Back: Present: Normal Inspection Upper Extremity: Present: Normal Inspection. No: Cyanosis, Edema Lower Extremity: Present: Normal Inspection. No: Edema Neurological: Present: Motor Func Grossly Intact Skin: Present: Warm, Dry, Normal Color. No: Rashes Psychiatric: Present: Alert, Normal Insight, Normal Concentration Medical Decision Making ED Course and Treatment: 12/06/16 16:24 -labs/ua/uc/blood cultures -chest x-ray -VBG -IV vanco/maxipime duoneb x3 prn, solumedrol 125 mg -Oxygen nasal cannula 3L due to the hypoxic around 88% room air to max 91% -Fall and aspiration risk, precautious order. -will admit the patient. 12/06/16 17:50 -EKG: SR @ 98 BPM, compared with previous ekg, no acute ST or T wave changes, RBBB. -Chest x-ray show: cardiomegally, no active consolidation but possible early infiltrate -UA show +leukocyte with wbc 10-15 -Labs show wbc 22.5, BNP 509 and Lactic acid 2.6. Code sepsis activated, IVF 1000cc/hour ordered, hemodynamically stable, will hold the remaining fluid due to the CHF. 12/06/16 18:07 -Pt.'s pmd Dr. Aguilar is on vacation this week, request all admission to the hospitalist, paging the hospitalist now. -Case discussed with Dr. Gomes including labs/treatment/dispo plan which he agreed. 12/06/16 18:38 -I spoke to the hopitalist Dr. Adair, discussed about the labs/radiology results/vital signs, agreed on the admission and will notified the incoming team. -Dr. Gomes put in the admission as well. 12/06/16 19:42 -I spoke to Dr. Bautista about the case/labs/radiology results, he will come to admit the patient. -CT Head show no acute intracranial findings - Lab Interpretations Microbiology Results: Microbiology Results 12/06/16 17:00 Blood-Venous Blood Culture - Preliminary NO GROWTH AFTER 4 DAYS 12/06/16 16:45 Blood-Venous Blood Culture - Preliminary NO GROWTH AFTER 4 DAYS 12/06/16 16:30 Urine Urine Culture - Final No Growth (<1,000 CFU/ML) Lab Results: 12/06/16 16:45 12/06/16 16:45 Lab Results 12/06/16 16:45: Phosphorus 2.9, Magnesium 1.7 12/06/16 16:45: Procalcitonin 0.05 L 12/06/16 16:45: Sodium 138, Chloride 102, Potassium 4.4, Carbon Dioxide 27, Anion Gap 13, BUN 17, Creatinine 1.0, Est GFR ( Amer) > 60, Est GFR (Non- Af Amer) > 60, Random Glucose 94, Calcium 8.6, Total Bilirubin 1.9 H, AST 34, ALT 28, Alkaline Phosphatase 80, NT-Pro-B Natriuret Pep 509 H, Total Protein 6.6 , Albumin 3.6, Globulin 3.0, Albumin/Globulin Ratio 1.2 12/06/16 16:45: pO2 32, VBG pH 7.31 L, VBG pCO2 59.0, VBG HCO3 29.7 H, VBG Total CO2 31.5 H, VBG O2 Sat (Calc) 61.5, VBG Base Excess 2.0, VBG Potassium 4.7 , Sodium 139.0, Chloride 102.0, Glucose 100, Lactate 2.6 H, FiO2 21.0, Venous Blood Potassium 4.7 12/06/16 16:45: WBC 22.5 H D, RBC 5.02, Hgb 14.7, Hct 42.6, MCV 84.9, MCH 29.3, MCHC 34.5, RDW 16.0 H, Plt Count 154, MPV 10.7, Gran % 93.4 H, Lymph % (Auto) 4.4 L, [place] % (Auto) 2.0, Eos % (Auto) 0.2 L, Baso % (Auto) 0.0, Gran # 20.97 H , Lymph # 1.0 L, [place] # 0.5, Eos # 0.0, Baso # 0.01 12/06/16 16:30: Urine Color Yellow, Urine Appearance Clear, Urine pH 5.5, Ur Specific [place] 1.020, Urine Protein Negative, Urine Glucose (UA) Negative, Urine Ketones Negative, Urine Blood Negative, Urine Nitrate Negative, Urine Bilirubin Negative, Urine Urobilinogen 0.2, Ur Leukocyte Esterase Moderate H, Urine RBC 0 - 2, Urine WBC 10 - 15, Ur Epithelial Cells 0 - 2, Urine Bacteria Few I have reviewed the lab results: Yes Interpretation: Abnormal lab values (wbc 22.5, BNP 502 from 709, LA 2.6, +UTI) - RAD Interpretation Radiology Orders: 12/06/16 16:26 CHEST PORTABLE [RAD] Stat Chest x-ray: possible infiltrate with vascular congestion Appellate Conferee: Radiologist - EKG Interpretation EKG Interpretation (Text): 12/06/16 16:39 SR @ 98 BPM, compared with previous ekg, no acute ST or T wave changes, RBBB. Interpreted by ED Physician: Yes Type: 12 lead EKG Comparison: Com.w/previous EKG - Medication Orders Current Medication Orders: Acetaminophen (Tylenol 325mg Tab) 650 mg PO Q4 PRN PRN Reason: Fever >100.4 F Albuterol/Ipratropium (Duoneb 3 Mg/0.5 Mg (3 Ml) Ud) 3 ml IH [id number] [facility] Last Admin: 12/11/16 11:32 Dose: 3 ml Albuterol/Ipratropium (Duoneb 3 Mg/0.5 Mg (3 Ml) Ud) 3 ml IH Q2H PRN PRN Reason: Shortness of Breath Arformoterol Tartrate (Brovana) 15 mcg IH [id number] [facility] Last Admin: 12/11/16 07:30 Dose: 15 mcg Aspirin (Aspirin Chewable) 81 mg PO DAILY [facility] Last Admin: 12/11/16 09:15 Dose: 81 mg Bisacodyl (Dulcolax) 5 mg PO BID PRN PRN Reason: Constipation Budesonide (Pulmicort Respules) 1 mg IH [id number] [facility] Last Admin: 12/11/16 07:31 Dose: 1 mg Donepezil HCl (Aricept) 10 mg PO HS [facility] Last Admin: 12/10/16 22:47 Dose: 10 mg Enoxaparin Sodium (Lovenox) 40 mg SC DAILY [facility] PRN Reason: Protocol Last Admin: 12/11/16 09:17 Dose: 40 mg Guaifenesin (Mucinex La) 600 mg PO BID [facility] Last Admin: 12/11/16 09:15 Dose: 600 mg Hydralazine HCl (Apresoline) 10 mg IVP Q6H PRN PRN Reason: Systolic Blood Pressure Last Admin: 12/09/16 06:07 Dose: 10 mg Vancomycin HCl (Vancomycin 1gm) 1 gm in 250 mls @ 167 mls/hr IVPB DAILY [facility] PRN Reason: Protocol Last Admin: 12/11/16 11:26 Dose: 167 mls/hr Cefepime HCl (Maxipime 1gm) 1 gm in 100 mls @ 100 mls/hr IVPB Q12 RYLIE PRN Reason: Protocol Last Admin: 12/11/16 09:17 Dose: 100 mls/hr Azithromycin (Zithromax 500mg In Ns) 500 mg in 250 mls @ 167 mls/hr IVPB DAILY RYLIE PRN Reason: Protocol Last Admin: 12/11/16 11:55 Dose: 167 mls/hr Losartan Potassium (Cozaar) 50 mg PO DAILY [facility] Last Admin: 12/11/16 09:15 Dose: 50 mg Pantoprazole Sodium (Protonix Ec Tab) 40 mg PO 0600 [facility] Last Admin: 12/11/16 05:17 Dose: 40 mg Prednisone (Prednisone Tab) 20 mg PO DAILY [facility] Last Admin: 12/11/16 09:15 Dose: 20 mg Discontinued Medications Acetaminophen (Tylenol 325mg Tab) 650 mg PO STAT STA Stop: 12/06/16 16:28 Last Admin: 12/06/16 16:54 Dose: 650 mg Re-Assess: MAR Pain/Vitals Document 12/06/16 17:54 ALA (Rec: 12/06/16 18:17 ALA [id number]) Pain Reassessment Is This A Pain ReAssessment? No Albuterol/Ipratropium (Duoneb 3 Mg/0.5 Mg (3 Ml) Ud) 3 ml IH Q15M [facility] Stop: 12/06/16 17:01 Last Admin: 12/06/16 17:00 Dose: 3 ml Enoxaparin Sodium (Lovenox) 40 mg SC DAILY RYLIE PRN Reason: Protocol Last Admin: 12/09/16 09:16 Dose: 40 mg Vancomycin HCl (Vancomycin 1gm) 1 gm in 250 mls @ 167 mls/hr IVPB STAT STA PRN Reason: Protocol Stop: 12/06/16 18:44 Last Admin: 12/06/16 18:20 Dose: 167 mls/hr Cefepime HCl (Maxipime 2gm) 2 gm in 100 mls @ 100 mls/hr IVPB STAT STA PRN Reason: Protocol Stop: 12/06/16 18:16 Last Admin: 12/06/16 17:26 Dose: 100 mls/hr Sodium Chloride (Sodium Chloride 0.9%) 1,000 mls @ 999 mls/hr IV .Q1H1M STA Stop: 12/06/16 18:53 Last Admin: 12/06/16 18:19 Dose: 999 mls/hr Meropenem 1g/NS 100mL IVPB (Meropenem 1g/Ns 100ml Ivpb) 1 gm in 100 mls @ 100 mls/hr IVPB Q12 RYLIE PRN Reason: Protocol Stop: 12/06/16 22:59 Last Admin: 12/06/16 22:07 Dose: 100 mls/hr Meropenem 1g/NS 100mL IVPB (Meropenem 1g/Ns 100ml Ivpb) 1 gm in 100 mls @ 100 mls/hr IVPB Q8 RYLIE PRN Reason: Protocol Stop: 12/07/16 22:59 Last Admin: 12/07/16 13:32 Dose: 100 mls/hr Sodium Chloride (Sodium Chloride 0.9%) 500 mls @ 999 mls/hr IV .Q31M STA Stop: 12/07/16 11:44 Last Admin: 12/07/16 15:53 Dose: 999 mls/hr Sodium Chloride (Sodium Chloride 0.9%) 500 mls @ 200 mls/hr IV .Q2H30M ONE Stop: 12/07/16 14:29 Last Admin: 12/07/16 13:03 Dose: 200 mls/hr Comments: pt was off the unit Sodium Chloride (Sodium Chloride 0.9%) 300 mls @ 150 mls/hr IV .Q2H [facility] Stop: 12/07/16 17:50 Last Admin: 12/07/16 19:25 Dose: Methylprednisolone (Solu-Medrol) 125 mg IVP STAT STA Stop: 12/06/16 16:26 Last Admin: 12/06/16 16:53 Dose: 125 mg Methylprednisolone (Solu-Medrol) 40 mg IVP Q12 [facility] Last Admin: 12/07/16 09:46 Dose: 40 mg Metoprolol Tartrate (Lopressor) Confirm Administered Dose 5 mg IVP .STK-MED ONE Stop: 12/07/16 16:47 Last Admin: 12/07/16 16:45 Dose: 5 mg Comments: given during PRODUCTION CONTROL MANAGER, therefore, not scanned Metoprolol Tartrate (Lopressor) 5 mg IVP ONCE ONE Stop: 12/07/16 16:46 Last Admin: 12/07/16 17:07 Dose: Nitroglycerin (Nitrostat Sl Tab) Confirm Administered Dose 0.4 mg SL .STK-MED ONE Stop: 12/07/16 16:47 Last Admin: 12/07/16 17:07 Dose: Nitroglycerin (Nitrostat Sl Tab) 0.4 mg SL Q5M RYLIE Stop: 12/07/16 16:51 Last Admin: 12/07/16 16:50 Dose: 0.4 mg Comments: given during PRODUCTION CONTROL MANAGER, therefore, not scanned Ondansetron HCl (Zofran Inj) 4 mg IVP ONCE ONE Stop: 12/07/16 16:52 Last Admin: 12/07/16 18:34 Dose: Pantoprazole Sodium (Protonix Inj) 40 mg IVP DAILY [facility] Last Admin: 12/08/16 10:19 Dose: 40 mg Comments: medication wont scan Potassium Chloride (Potassium Chloride Oral Soln) 40 meq PO STAT STA Stop: 12/09/16 10:32 Last Admin: 12/09/16 10:55 Dose: 40 meq Prednisone (Prednisone Tab) 40 mg PO DAILY RYLIE Stop: 12/11/16 10:00 Last Admin: 12/08/16 10:18 Dose: 40 mg Prednisone (Prednisone Tab) 20 mg PO DAILY RYLIE Stop: 12/11/16 10:00 Last Admin: 12/09/16 09:17 Dose: 20 mg - PA / BIBLE TEACHER / Resident Statement MD/DO has reviewed & agrees with the documentation as recorded. Disposition/Present on Arrival - Present on Arrival Any Indicators Present on Arrival: No History of DVT/PE: No History of Uncontrolled Diabetes: No Urinary Catheter: No History of Decub. Ulcer: No History Surgical Site Infection Following: None - Disposition Have Diagnosis and Disposition been Completed?: Yes Diagnosis: COPD exacerbation, Hypoxia, Fatigue, UTI (urinary tract infection), Leukocytosis (leucocytosis), Sepsis, Pneumonia Disposition: HOSPITALIZED Disposition Time: 16:25 Patient Plan: Admission, Telemetry Patient Problems: Current Active Problems Problem Status Onset COPD exacerbation Acute Fatigue Acute Hypoxia Acute Leukocytosis (leucocytosis) Acute Pneumonia Acute Sepsis Acute Sleep apnea Acute UTI (urinary tract infection) Acute Condition: FAIR
[2016-12-06] MEDS: Albuterol-Ipratrop 3 mg / 0.5 (3 ml) UD IH SCH ×4 (16:30→20:36)
[2016-12-06 16:44] LABS: PH,URINE 5.5 (4.7-8.0); URINE BILIRUBIN NEGATIVE (NEGATIVE); URINE BLOOD NEGATIVE (NEGATIVE); URINE GLUCOSE (UA) NEGATIVE (NEGATIVE); URINE LEUKOCYTE ESTERASE MODERATE Leu/uL (NEGATIVE); URINE NITRATE NEGATIVE (NEGATIVE); URINE PROTEIN NEGATIVE mg/dL (<30 mg/dL); URINE UROBILINOGEN 0.2 E.U./dL (<1 E.U./dL)
[2016-12-06 16:47] LABS: URINE APPEARANCE CLEAR (CLEAR); URINE COLOR YELLOW (YELLOW)
[2016-12-06 16:49] LABS: URINE RBC 0 - 2 /hpf (0-2)
[2016-12-06 16:50] LABS: URINE BACTERIA FEW (NEG); URINE EPITHELIAL CELLS 0 - 2 /hpf (0-5)
[2016-12-06] MEDS ORDERED: cefTRIAXone 1 gm 1 GM/100 ML BAG IVPB STA (16:53)
[2016-12-06 16:59] LABS: VENOUS BLOOD GAS PO2 32 mm/Hg (30-55); VENOUS BLOOD PH 7.31 (7.32-7.43)
[2016-12-06 17:05] LABS: BASO # 0.01 K/mm3 (0.0-2.0); EOS % 0.2 % (1.5-5.0); GRAN # 20.97 (1.4-6.5); GRAN % 93.4 % (50.0-68.0); HEMOGLOBIN 14.7 gm/dL (14.0-18.0); LYMPH % 4.4 % (22.0-35.0); MEAN CELL VOLUME 84.9 fL (80.0-105.0); MEAN CORPUSCULAR HEMOGLOBIN 29.3 pg (25.0-35.0); MEAN CORPUSCULAR HGB CONC 34.5 g/dl (31.0-37.0); MEAN PLATELET VOLUME 10.7 fl (7.0-11.0); MONO # 0.5 (0.1-0.6); PLATELET COUNT 154 10^3/uL (120.0-450.0); RBC 5.02 10^6/uL (3.5-6.1); WHITE BLOOD COUNT 22.5 10^3/ul (4.5-11.0)
[2016-12-06 17:08] LABS: ALB/GLOB RATIO 1.2 (1.1-1.8); ALBUMIN 3.6 g/dL (3.0-4.8); ALT/SGPT 28 U/L (7-56); AST/SGOT 34 U/L (15-59); BLOOD UREA NITROGEN 17 mg/dL (7-21); CALCIUM 8.6 mg/dL (8.4-10.5); GFR AFRICAN-AMERICAN > 60; GFR NON-AFRICAN AMERICAN > 60
[2016-12-06] MEDS ORDERED: Vancomycin 1gm in NS 250ml 1 GM/250 ML BAG IVPB STA (17:15)
[2016-12-06 17:17] LABS: B-TYPE NATRIURETIC PEPTIDE 509 pg/mL (0-450)
[2016-12-06] MEDS ORDERED: Cefepime IV 2 gm in NS 2 GM/100 ML BAG IVPB STA (17:17)
[2016-12-06] MEDS ORDERED: Sodium Chloride 0.9% 1,000 ML IV SCH (17:30)
[2016-12-06] MEDS ORDERED: Sodium Chloride 0.9% 1,000 ML IV STA (17:53)
[2016-12-06] MEDS ORDERED: Bisacodyl 5mg EC Tab PO PRN (19:07)
[2016-12-06] MEDS ORDERED: Albuterol-Ipratrop 3 mg / 0.5 (3 ml) UD IH PRN (19:12)
[2016-12-06 19:53] LABS: VENOUS BLOOD GAS BASE EXCESS -1.7 mmol/L (0.0-2.0); VENOUS BLOOD GAS PO2 92 mm/Hg (30-55); VENOUS BLOOD PH 7.39 (7.32-7.43)
--- NOTE | 2016-12-06 20:00 | CT ---
EXAM: CT Head Without Intravenous Contrast CLINICAL HISTORY: The patient age is 86 years old and is male; Pain; Headache; Headache not specified Facility exam id and description: Ct heads head w/o contrast TECHNIQUE: Axial computed tomography images of the head/brain without intravenous contrast. This CT exam was performed using one or more of the following dose reduction techniques: automated exposure control, adjustment of the mA and/or kV according to patient size, and/or use of iterative reconstruction technique. EXAM DATE/TIME: 12/06/2016 6:24 PM COMPARISON: CT - HEAD W/O CONTRAST 03/30/2016 12:00:45 PM FINDINGS: Brain: There are multiple foci/areas of hypodensity within the cerebral white matter, bilateral basal ganglia, bilateral thalami, and richard likely representing small vessel ischemic disease in a patient this age. The acuity of the white matter disease is indeterminate. The white-reagan differentiation is preserved demonstrating no acute territorial type infarct. There is prominence of the ventricles and sulci, compatible with atrophy. No acute intracranial hemorrhage is seen. Midline shift: There is no midline shift. Ventricles: See above. Bones/joints: The calvarium demonstrates no evidence for a depressed fracture. Soft tissues: No acute abnormality. Vasculature: There is atherosclerotic calcification of the cavernous internal carotid arteries and vertebrobasilar system. Sinuses: A mucus retention cyst or polyp is visualized within the left maxillary sinus as well as within a left posterior ethmoid air cell. Mastoid air cells: No mastoid effusion. IMPRESSION: 1. No acute intracranial hemorrhage or acute territorial type infarct. 2. There are multiple foci/areas of hypodensity within the cerebral white matter, bilateral basal ganglia, bilateral thalami, and richard likely representing small vessel ischemic disease in a patient this age. 3. Atrophy. 4. If further evaluation is clinically indicated, an MRI of the brain is recommended.
[2016-12-06 20:22] LABS: MAGNESIUM 1.7 mg/dL (1.7-2.2)
--- NOTE | 2016-12-06 20:31 | CP.PCM.HP ---
<Jersey Treviño - Last Filed: 12/07/16 06:36> History of Present Illness - History of Present Illness History of Present Illness: cc: SOB HPI: Patient is an 86yo male with past medical history of COPD, dementia, hypertension, TIA, osteoarthritis that presented to accompanied by family who reported that he had been feeling short of breath associated with worsening productive cough with yellowish sputum. Per family, patient was recently admitted [place] [facility] [place] and was discharged on levaquin. He had been feeling okay shortly after discharge however thereafter began to feel subjective fevers, productive cough and dyspnea. On arrival to the ED, patient's vitals were as follows: temperature 101.5F, heart rate 99bpm, blood pressure 160/99, o2sat 94% on room air, respiratory rate 20. Labs were notable for a WBC count of 22.5, lactate of 2.6, BNP of 509. Patient denied chest pain, palpitations, abdominal pain, nausea, vomiting. 12point ROS as per HPI above, otherwise negative PMHx: see above PSHx: denies Allergies: NKDA Family Hx: reviewed, non-contributory Social Hx: denies alcohol, tobacco and illicit drug use; lives with his family PMD: Dr. Aguilar Present on Admission - Present on Admission Any Indicators Present on Admission: No Past Patient History - Infectious Disease Hx of Infectious Diseases: None - Tetanus Immunizations Tetanus Immunization: Unknown - Past Social History Smoking Status: Former Smoker - CARDIAC Hx Hypertension: Yes - PULMONARY Hx Chronic Obstructive Pulmonary Disease (COPD): Yes - NEUROLOGICAL Hx Transient Ischemic Attacks (TIA): Yes - HEENT Hx Cataracts: Yes - RENAL Hx Renal Failure: Yes - ENDOCRINE/METABOLIC Hx Endocrine Disorders: No - HEMATOLOGICAL/ONCOLOGICAL Hx Blood Disorders: No - INTEGUMENTARY Hx Dermatological Problems: Yes (MULTIPLE ROUND OLD AGE SPOTS TO FACE,ARMS) - MUSCULOSKELETAL/RHEUMATOLOGICAL Hx Arthritis: Yes - GASTROINTESTINAL Hx Gastrointestinal Disorders: No - GENITOURINARY/GYNECOLOGICAL Hx Prostate Problems: Yes - PSYCHIATRIC Hx Psychophysiologic Disorder: No Hx Substance Use: No - SURGICAL HISTORY Hx Surgeries: No - ANESTHESIA Hx Anesthesia: No Meds Allergies/Adverse Reactions: Allergies Allergy/AdvReac Type Severity Reaction Status Date / Time No Known Allergies Allergy Verified 12/06/16 16:19 Physical Exam - Constitutional Appears: Non-toxic, No Acute Distress - Head Exam Head Exam: ATRAUMATIC, NORMAL INSPECTION, NORMOCEPHALIC - Eye Exam Eye Exam: EOMI, PERRL - ENT Exam ENT Exam: Mucous Membranes Moist - Neck Exam Neck exam: Positive for: Normal Inspection - Respiratory Exam Respiratory Exam: absent: Rhonchi, Wheezes Additional comments: bilateral crackles at the bases; R>L - Cardiovascular Exam Cardiovascular Exam: RRR, +S1, +S2. absent: Gallop, JVD, Rubs - GI/Abdominal Exam GI & Abdominal Exam: Normal Bowel Sounds, Soft. absent: Distended, Firm, Guarding, Rebound, Tenderness - Extremities Exam Extremities exam: Positive for: normal inspection, pedal pulses present. Negative for: calf tenderness, pedal edema, tenderness - Neurological Exam Neurological exam: Alert, Oriented x3 - Psychiatric Exam Psychiatric exam: Normal Affect, Normal Mood - Skin Skin Exam: Dry, Intact, Normal Color, Warm Results - Vital Signs Recent Vital Signs: Last Vital Signs Temp 98.1 F 12/06/16 18:39 Pulse 103 H 12/06/16 18:39 Resp 20 12/06/16 18:39 BP 169/81 H 12/06/16 18:39 Pulse Ox 94 L 12/06/16 18:39 - Labs Result Diagrams: 12/06/16 16:45 12/06/16 16:45 Labs: Laboratory Results - last 24 hr 12/06/16 19:45 pO2 92 H VBG pH 7.39 VBG pCO2 38.0 L VBG HCO3 23.0 VBG Total CO2 24.2 VBG O2 Sat (Calc) 99.3 H VBG Base Excess -1.7 L VBG Potassium 3.6 Sodium 137.0 Chloride 106.0 Glucose 180 H Lactate 3.3 H FiO2 21.0 Venous Blood Potassium 3.6 Assessment & Plan - Assessment and Plan (Free Text) Plan: 86yo male with history of COPD, hypertension, TIA, osteoarthritis presents c/o SOB associated with productive cough, fevers 1. Sepsis -febrile 101.5F and leukocytosis of 22.5 on admission -CXR reviewed; no apparent consolidation however pending official read -EKG reviewed; sinus rhythm with PAC's, left axis deviation, incomplete RBBB, inferior infarct (age undetermined); compared to prior EKG's -Lactate of 2.6 -Patient started on cefepime and vancomycin in the ED; Code sepsis was called -s/p fluid bolus in the ED; hemodynamically stable -Continue meropenem and vancomycin -Tylenol 650mg q4h PRN for fevers -Sepsis workup pending: Blood, urine, sputum cultures; procalcitonin pending -ID consulted - Dr. Mcdowell -Pulmonary consulted - Dr. Lynch 2. COPD -Continue duoneb q4h RYLIE and q2n PRN -Solumedrol 40mg q12h -O2 supplementation to keep SaO2 > 90 -Continue home inhaled pulmicort and brovana -Pulmonary consulted - Dr. Lynch 3. Hypertension -Continue home losartan 4. GI/DVT prophylaxis -Protonix/Lovenox Patient seen and case discussed with attending, Dr. Bautista - Date & Time Date: 12/06/16 Time: 20:43 <Carter Bautista - Last Filed: 12/07/16 06:48> Results - Vital Signs Recent Vital Signs: Last Vital Signs Temp 97.7 F 12/07/16 02:29 Pulse 82 12/07/16 02:29 Resp 18 12/07/16 02:29 BP 124/57 L 12/07/16 02:29 Pulse Ox 96 12/07/16 02:29 - Labs Result Diagrams: 12/06/16 16:45 12/06/16 16:45 Labs: Laboratory Results - last 24 hr 12/06/16 19:45 pO2 92 H VBG pH 7.39 VBG pCO2 38.0 L VBG HCO3 23.0 VBG Total CO2 24.2 VBG O2 Sat (Calc) 99.3 H VBG Base Excess -1.7 L VBG Potassium 3.6 Sodium 137.0 Chloride 106.0 Glucose 180 H Lactate 3.3 H FiO2 21.0 Venous Blood Potassium 3.6 Attending/Attestation - Attestation I have personally seen and examined this patient.: Yes I have fully participated in the care of the patient.: Yes I have reviewed all pertinent clinical information: Yes Notes (Text): 12/07/16 06:48 History obtained from daughter,Kristi when patient was in bed # 1 in the ER. Agree with history, physical examinationa, assessment and plan. 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
[2016-12-06] MEDS: Arformoterol 15 mcg/2 ml Inh Sol IH SCH (20:45)
[2016-12-06] MEDS ORDERED: Fluticasone-Salmeterol 500-50mcg Diskus IH SCH (22:00)
[2016-12-06] MEDS ORDERED: Meropenem 1g/NS 100mL IVPB 1 GM/100 ML PIGGYBACK IVPB SCH (22:00)
--- NOTE | 2016-12-06 22:04 | CARD ---
APPROVED REPORT EKG Measurement Heart [id number] [id number] <Conclusion> Sinus rhythm with premature atrial complexes Left axis deviation Incomplete right bundle branch block Inferior infarct, age undetermined ST & T wave abnormality, consider anterior ischemia Abnormal ECG
[2016-12-06] MEDS: Budesonide 0.5 mg/2 ml Inhal Susp UD IH SCH (22:07)
[2016-12-07] MEDS: Albuterol-Ipratrop 3 mg / 0.5 (3 ml) UD IH SCH ×7 (01:23→22:57)
[2016-12-07] MEDS: Arformoterol 15 mcg/2 ml Inh Sol IH SCH ×2 (07:24→20:04)
[2016-12-07] MEDS: Budesonide 0.5 mg/2 ml Inhal Susp UD IH SCH ×2 (07:25→20:05)
[2016-12-07 08:02] LABS: BASO # 0.01 K/mm3 (0.0-2.0); GRAN # 27.29 (1.4-6.5); GRAN % 96.9 % (50.0-68.0); HEMOGLOBIN 11.9 gm/dL (14.0-18.0); LYMPH # 0.6 (1.2-3.4); MEAN CELL VOLUME 83.2 fL (80.0-105.0); MEAN CORPUSCULAR HEMOGLOBIN 28.1 pg (25.0-35.0); MEAN CORPUSCULAR HGB CONC 33.8 g/dl (31.0-37.0); MONO # 0.3 (0.1-0.6); MONO % 1.1 % (1.0-6.0); PLATELET COUNT 137 10^3/uL (120.0-450.0); RBC 4.23 10^6/uL (3.5-6.1); RED CELL DISTRIBUTION WIDTH 15.8 % (11.5-14.5)
--- NOTE | 2016-12-07 08:07 | RAD ---
HISTORY: cough/fever COMPARISON: 11/18/2016 FINDINGS: LUNGS: Lung volumes are more shallow than before PLEURA: Pulmonary venous congestion suspect - prominent bronchovascular marking likely also impart due to crowding and shallow inspiration. . Vague small opacity right lateral lung base here are patchy infiltrate versus coalescence of pulmonary venous congestion/edema are considerations. Probable trace right pleural effusion CARDIOVASCULAR: Cardiomegaly OSSEOUS STRUCTURES: No significant abnormalities. VISUALIZED UPPER ABDOMEN: Normal. OTHER FINDINGS: None. IMPRESSION: Shallow lung volumes limiting optimal evaluation. Nevertheless mild pulmonary venous congestion is probable. Mild cardiomegaly noted Interval increased patchy small opacity right lung base lateral here patchy infiltrate possible. Coalescent pulmonary venous congestion/pulmonary edema is another consideration. Tiny right pleural effusion probable
[2016-12-07 08:10] LABS: ALB/GLOB RATIO 1.1 (1.1-1.8); ALBUMIN 2.9 g/dL (3.0-4.8); ALT/SGPT 28 U/L (7-56); AST/SGOT 29 U/L (15-59); BLOOD UREA NITROGEN 16 mg/dL (7-21); CALCIUM 7.9 mg/dL (8.4-10.5); GFR AFRICAN-AMERICAN > 60; GFR NON-AFRICAN AMERICAN > 60; WHITE BLOOD COUNT 28.2 10^3/ul (4.5-11.0)
--- NOTE | 2016-12-07 09:25 | CP.PCM.PN ---
<Eamon Car - Last Filed: 12/07/16 11:43> Subjective - Date & Time of Evaluation Date of Evaluation: 12/07/16 Time of Evaluation: 08:00 - Subjective Subjective: Medicine progress note: Pt seen and examined at bedside. No acute events overnight. Pt still c/o cough and shortness of breath but reports of some improvement. Denies any morales, dizziness, f/c, sob, cp, abd pain, n/v/d. Objective - Vital Signs/Intake and Output Vital Signs (last 24 hours): Temp Pulse Resp BP Pulse Ox 98.0 F 81 20 127/61 96 12/07/16 06:00 12/07/16 06:00 12/07/16 06:00 12/07/16 06:00 12/07/16 06:00 Intake and Output: 12/07/16 12/07/16 06:59 18:59 Output Total 300 Balance -300 - Medications Medications: Current Medications Acetaminophen (Tylenol 325mg Tab) 650 mg PO Q4 PRN PRN Reason: Fever >100.4 F Albuterol/Ipratropium (Duoneb 3 Mg/0.5 Mg (3 Ml) Ud) 3 ml IH [id number] [facility] Last Admin: 12/07/16 07:24 Dose: 3 ml Albuterol/Ipratropium (Duoneb 3 Mg/0.5 Mg (3 Ml) Ud) 3 ml IH Q2H PRN PRN Reason: Shortness of Breath Arformoterol Tartrate (Brovana) 15 mcg IH [id number] [facility] Last Admin: 12/07/16 07:24 Dose: 15 mcg Aspirin (Aspirin Chewable) 81 mg PO DAILY RYLIE Bisacodyl (Dulcolax) 5 mg PO BID PRN PRN Reason: Constipation Budesonide (Pulmicort Respules) 1 mg IH [id number] [facility] Last Admin: 12/07/16 07:25 Dose: 1 mg Enoxaparin Sodium (Lovenox) 40 mg SC DAILY [facility] PRN Reason: Protocol Vancomycin HCl (Vancomycin 1gm) 1 gm in 250 mls @ 167 mls/hr IVPB DAILY [facility] PRN Reason: Protocol Losartan Potassium (Cozaar) 50 mg PO DAILY RYLIE Methylprednisolone (Solu-Medrol) 40 mg IVP Q12 RYLIE Pantoprazole Sodium (Protonix Inj) 40 mg IVP DAILY RYLIE - Labs Labs: 12/07/16 07:45 12/07/16 07:45 - Constitutional Appears: No Acute Distress - Head Exam Head Exam: ATRAUMATIC, NORMAL INSPECTION, NORMOCEPHALIC - Eye Exam Eye Exam: EOMI, Normal appearance, PERRL Pupil Exam: NORMAL ACCOMODATION, PERRL - ENT Exam ENT Exam: Mucous Membranes Moist, Normal Exam - Neck Exam Neck Exam: Full ROM, Normal Inspection. absent: Lymphadenopathy - Respiratory Exam Respiratory Exam: Clear to Ausculation Bilateral, Rhonchi. absent: Wheezes Additional comments: Crackles - Cardiovascular Exam Cardiovascular Exam: REGULAR RHYTHM, RRR, +S1, +S2. absent: Murmur - GI/Abdominal Exam GI & Abdominal Exam: Soft, Normal Bowel Sounds. absent: Distended, Tenderness - Extremities Exam Extremities Exam: Full ROM, Normal Capillary Refill, Normal Inspection. absent : Joint Swelling, Pedal Edema - Back Exam Back Exam: NORMAL INSPECTION - Neurological Exam Neurological Exam: Alert, Awake, CN II-XII Intact, Normal Gait, Oriented x3 - Psychiatric Exam Psychiatric exam: Normal Affect, Normal Mood - Skin Skin Exam: Dry, Intact, Normal Color, Warm Assessment and Plan - Assessment and Plan (Free Text) Assessment: 86yo male with history of COPD, hypertension, TIA, osteoarthritis presents c/o SOB associated with productive cough, fevers. 1. Sepsis - Currently afebrile, HR - 72, wbc 28.2 - Repeat Lactic Acid 4.6 - will repeat in 4 hours - Stat IVF 500ml bolus and 500ml @200/hr x 1 - Jovita started, Cont Vanco - Stat CT chest w/o contrast - will f/u -febrile 101.5F and leukocytosis of 22.5 on admission -CXR reviewed - no active disease -EKG reviewed; sinus rhythm with PAC's, left axis deviation, incomplete RBBB, inferior infarct (age undetermined); compared to prior EKG's -Lactate of 2.6 --> 3.3 --> pending repeat lactate -Patient started on cefepime and vancomycin in the ED; Code sepsis was called -s/p fluid bolus in the ED; hemodynamically stable -Continue vancomycin, Cefepime x 1 -Tylenol 650mg q4h PRN for fevers -Sepsis workup pending: Blood, urine, sputum cultures; procalcitonin pending -ID consulted - Dr. Mcdowell -Pulmonary consulted - Dr. Lynch 2. COPD -Continue duoneb q4h RYLIE and q2n PRN -Solumedrol 40mg q12h -O2 supplementation to keep SaO2 90-94 -Continue home inhaled Pulmicort and Brovana -Pulmonary consulted - Dr. Lynch 3. Hypertension -Continue home losartan 4. GI/DVT ppx -Protonix & Lovenox Patient seen and case discussed in detail with Dr. Santos. <Tom PLASCENCIA,Dl - Last Filed: 12/07/16 14:04> Objective - Vital Signs/Intake and Output Vital Signs (last 24 hours): Temp Pulse Resp BP Pulse Ox 97.1 F L 85 19 153/62 H 96 12/07/16 11:53 12/07/16 11:53 12/07/16 11:53 12/07/16 11:53 12/07/16 06:00 Intake and Output: 12/07/16 12/07/16 06:59 18:59 Output Total 300 Balance -300 - Medications Medications: Current Medications Acetaminophen (Tylenol 325mg Tab) 650 mg PO Q4 PRN PRN Reason: Fever >100.4 F Albuterol/Ipratropium (Duoneb 3 Mg/0.5 Mg (3 Ml) Ud) 3 ml IH [id number] [facility] Last Admin: 12/07/16 11:24 Dose: 3 ml Albuterol/Ipratropium (Duoneb 3 Mg/0.5 Mg (3 Ml) Ud) 3 ml IH Q2H PRN PRN Reason: Shortness of Breath Arformoterol Tartrate (Brovana) 15 mcg IH [id number] [facility] Last Admin: 12/07/16 07:24 Dose: 15 mcg Aspirin (Aspirin Chewable) 81 mg PO DAILY [facility] Last Admin: 12/07/16 09:44 Dose: 81 mg Bisacodyl (Dulcolax) 5 mg PO BID PRN PRN Reason: Constipation Budesonide (Pulmicort Respules) 1 mg IH [id number] [facility] Last Admin: 12/07/16 07:25 Dose: 1 mg Enoxaparin Sodium (Lovenox) 40 mg SC DAILY [facility] PRN Reason: Protocol Last Admin: 12/07/16 09:42 Dose: 40 mg Vancomycin HCl (Vancomycin 1gm) 1 gm in 250 mls @ 167 mls/hr IVPB DAILY RYLIE PRN Reason: Protocol Last Admin: 12/07/16 09:47 Dose: 167 mls/hr Meropenem 1g/NS 100mL IVPB (Meropenem 1g/Ns 100ml Ivpb) 1 gm in 100 mls @ 100 mls/hr IVPB Q8 RYLIE PRN Reason: Protocol Stop: 12/07/16 22:59 Last Admin: 12/07/16 13:32 Dose: 100 mls/hr Sodium Chloride (Sodium Chloride 0.9%) 500 mls @ 200 mls/hr IV .Q2H30M ONE Stop: 12/07/16 14:29 Last Admin: 12/07/16 13:03 Dose: 200 mls/hr Losartan Potassium (Cozaar) 50 mg PO DAILY [facility] Last Admin: 12/07/16 09:46 Dose: 50 mg Methylprednisolone (Solu-Medrol) 40 mg IVP DAILY [facility] Pantoprazole Sodium (Protonix Inj) 40 mg IVP DAILY [facility] Last Admin: 12/07/16 09:46 Dose: 40 mg - Labs Labs: 12/07/16 07:45 12/07/16 07:45 Attending/Attestation - Attestation I have personally seen and examined this patient.: Yes I have fully participated in the care of the patient.: Yes I have reviewed all pertinent clinical information, including history, physical exam and plan: Yes Notes (Text): 12/07/16 14:00 Patient was seen and examined with medical data entry clerk .Agreed with resident assessment and plan. 86yo male with history of COPD, hypertension, TIA, osteoarthritis with sepsis due to HCAP Pneumonia , continue broad spectrum IV antibiotics, we will follow up cultures.Lactic acid level is high due to sepsis, we will give aggressive IV hydration and follow up electrolyte.Patient is not wheezing, will taper down steroid quickly.There is no sign of fluid overload at this time. Management plan was discussed in detail with patient Education was provided.
[2016-12-07] MEDS: Enoxaparin 30 mg Syringe SC SCH (09:42)
[2016-12-07] MEDS: Vancomycin 1gm in NS 250ml 1 GM/250 ML BAG IVPB SCH (09:47)
[2016-12-07] MEDS ORDERED: MethylPREDNISolone 40 mg Vial IVP SCH (10:00)
--- NOTE | 2016-12-07 10:34 | CP.PCM.PCO ---
Physician Communication Note - Physician Communication Note Physician Communication Note: chart reviewed consult to follow
[2016-12-07] MEDS ORDERED: Sodium Chloride 0.9% 500 ML IV ONE (12:00)
--- NOTE | 2016-12-07 12:54 | CT ---
PROCEDURE: CT Chest without contrast HISTORY: r/o PNA COMPARISON: None. TECHNIQUE: Contiguous axial images were obtained through the chest without intravenous contrast enhancement. Sagittal and coronal reconstructions were performed. Radiation dose (DLP): 354 mGy-cm. This CT exam was performed using one or more of the following dose reduction techniques: Automated exposure control, adjustment of the mA and/or kV according to patient size, and/or use of iterative reconstruction technique. FINDINGS: LUNGS: There is dense consolidation in the medial posterior segment of the left lower lobe consistent with pneumonia. Air bronchograms are seen. MEDIASTINUM: There is calcification of the aorta and coronary arteries. Moderate cardiomegaly Main pulmonary artery unremarkable. No vascular congestion. No lymphadenopathy. PLEURA: No pleural fluid. No pneumothorax. BONES: No fracture. No destructive lesion. UPPER ABDOMEN: Grossly unremarkable. OTHER FINDINGS: None. IMPRESSION: Left lower lobe pneumonia
[2016-12-07] MEDS: Sodium Chloride 0.9% 500 ML IV STA ×2 (12:55→15:53)
[2016-12-07] MEDS ORDERED: Meropenem 1g/NS 100mL IVPB 1 GM/100 ML PIGGYBACK IVPB SCH (14:00)
--- NOTE | 2016-12-07 14:27 | CP.PCM.CON ---
History of Present Illness - History of Present Illness History of Present Illness: Patient is an 86yo male with past medical history of COPD, dementia, hypertension, TIA, osteoarthritis that presented to accompanied by family who reported that he had been feeling short of breath associated with worsening productive cough with yellowish sputum. Per family, patient was recently [place] [facility] [place] and was discharged on levaquin. He had been feeling okay shortly after discharge however thereafter began to feel subjective fevers, productive cough and dyspnea. today feels little better, decrease cough and SOB Review of Systems - Review of Systems Systems not reviewed;Unavailable: Respiratory Distress - Constitutional Constitutional: Fever, Snoring, Sleep Apnea - EENT Nose/Mouth/Throat: Nasal Congestion - Cardiovascular Cardiovascular: Dyspnea, Leg Edema - Respiratory Respiratory: Cough, Dyspnea, Wheezing, Snoring, Chest Congestion - Gastrointestinal Gastrointestinal: absent: As Per HPI, Abdominal Pain, Belching, Bloating, Change in Bowel Habits, Change in Stool Character, Coffee Ground Emesis, Constipation, Cramping, Diarrhea, Dyspepsia, Dysphagia, Early Satiety, Excessive Flatus, Fecal Incontinence, Heartburn, Hematemesis, Hematochezia, Loose Stools, Melena, Nausea, Odynophagia, Temesmus, Vomiting, Other - Musculoskeletal Musculoskeletal: absent: As Per HPI, Abnormal Gait, Arthralgias, Atrophy, Back Pain, Deformity, Joint Swelling, Limited Range of Motion, Loss of Height, Muscle Cramps, Muscle Weakness, Myalgias, Neck Pain, Numbness, Radiating Pain into Limb, Stiffness, Tingling, Other Past Patient History - Infectious Disease Hx of Infectious Diseases: None - Tetanus Immunizations Tetanus Immunization: Unknown - Past Social History Smoking Status: Former Smoker - CARDIAC Hx Hypertension: Yes - PULMONARY Hx Chronic Obstructive Pulmonary Disease (COPD): Yes - NEUROLOGICAL Hx Transient Ischemic Attacks (TIA): Yes - HEENT Hx Cataracts: Yes - RENAL Hx Renal Failure: Yes - ENDOCRINE/METABOLIC Hx Endocrine Disorders: No - HEMATOLOGICAL/ONCOLOGICAL Hx Blood Disorders: No - INTEGUMENTARY Hx Dermatological Problems: Yes (MULTIPLE ROUND OLD AGE SPOTS TO FACE,ARMS) - MUSCULOSKELETAL/RHEUMATOLOGICAL Hx Arthritis: Yes - GASTROINTESTINAL Hx Gastrointestinal Disorders: No - GENITOURINARY/GYNECOLOGICAL Hx Prostate Problems: Yes - PSYCHIATRIC Hx Psychophysiologic Disorder: No Hx Substance Use: No - SURGICAL HISTORY Hx Surgeries: No - ANESTHESIA Hx Anesthesia: No Meds Allergies/Adverse Reactions: Allergies Allergy/AdvReac Type Severity Reaction Status Date / Time No Known Allergies Allergy Verified 12/06/16 16:19 - Medications Medications: Current Medications Acetaminophen (Tylenol 325mg Tab) 650 mg PO Q4 PRN PRN Reason: Fever >100.4 F Albuterol/Ipratropium (Duoneb 3 Mg/0.5 Mg (3 Ml) Ud) 3 ml IH [id number] [facility] Last Admin: 12/07/16 11:24 Dose: 3 ml Albuterol/Ipratropium (Duoneb 3 Mg/0.5 Mg (3 Ml) Ud) 3 ml IH Q2H PRN PRN Reason: Shortness of Breath Arformoterol Tartrate (Brovana) 15 mcg IH [id number] [facility] Last Admin: 12/07/16 07:24 Dose: 15 mcg Aspirin (Aspirin Chewable) 81 mg PO DAILY [facility] Last Admin: 12/07/16 09:44 Dose: 81 mg Bisacodyl (Dulcolax) 5 mg PO BID PRN PRN Reason: Constipation Budesonide (Pulmicort Respules) 1 mg IH [id number] [facility] Last Admin: 12/07/16 07:25 Dose: 1 mg Enoxaparin Sodium (Lovenox) 40 mg SC DAILY [facility] PRN Reason: Protocol Last Admin: 12/07/16 09:42 Dose: 40 mg Vancomycin HCl (Vancomycin 1gm) 1 gm in 250 mls @ 167 mls/hr IVPB DAILY [facility] PRN Reason: Protocol Last Admin: 12/07/16 09:47 Dose: 167 mls/hr Meropenem 1g/NS 100mL IVPB (Meropenem 1g/Ns 100ml Ivpb) 1 gm in 100 mls @ 100 mls/hr IVPB Q8 [facility] PRN Reason: Protocol Stop: 12/07/16 22:59 Last Admin: 12/07/16 13:32 Dose: 100 mls/hr Sodium Chloride (Sodium Chloride 0.9%) 500 mls @ 200 mls/hr IV .Q2H30M ONE Stop: 12/07/16 14:29 Last Admin: 12/07/16 13:03 Dose: 200 mls/hr Losartan Potassium (Cozaar) 50 mg PO DAILY [facility] Last Admin: 12/07/16 09:46 Dose: 50 mg Methylprednisolone (Solu-Medrol) 40 mg IVP DAILY [facility] Pantoprazole Sodium (Protonix Inj) 40 mg IVP DAILY [facility] Last Admin: 12/07/16 09:46 Dose: 40 mg Physical Exam - Constitutional Appears: Well - Head Exam Head Exam: ATRAUMATIC, NORMAL INSPECTION, NORMOCEPHALIC - Eye Exam Eye Exam: EOMI, Normal appearance, PERRL Pupil Exam: NORMAL ACCOMODATION, PERRL - ENT Exam ENT Exam: Mucous Membranes Moist, Normal Exam - Neck Exam Neck exam: Positive for: Normal Inspection - Respiratory Exam Respiratory Exam: Accessory Muscle Use, Rales, Wheezes - Cardiovascular Exam Cardiovascular Exam: REGULAR RHYTHM - GI/Abdominal Exam GI & Abdominal Exam: Normal Bowel Sounds, Soft. absent: Tenderness - Rectal Exam Rectal Exam: NORMAL INSPECTION - Exam Exam: Circumcision, NORMAL INSPECTION External exam: NORMAL EXTERNAL EXAM Speculum exam: NORMAL SPECULUM EXAM Bimanual exam: NORMAL BIMANUAL EXAM - Extremities Exam Extremities exam: Positive for: normal inspection - Back Exam Back exam: NORMAL INSPECTION - Neurological Exam Neurological exam: Alert, CN II-XII Intact, Normal Gait, Oriented x3, Reflexes Normal - Psychiatric Exam Psychiatric exam: Normal Affect, Normal Mood - Skin Skin Exam: Dry, Intact, Normal Color, Warm Results - Vital Signs Recent Vital Signs: Last Vital Signs Temp 97.1 F L 12/07/16 11:53 Pulse 85 12/07/16 11:53 Resp 19 12/07/16 11:53 BP 153/62 H 12/07/16 11:53 Pulse Ox 96 12/07/16 06:00 - Labs Result Diagrams: 12/07/16 07:45 12/07/16 07:45 Labs: Laboratory Results - last 24 hr 12/06/16 12/07/16 12/07/16 19:45 07:45 07:45 WBC 28.2 H* D RBC 4.23 Hgb 11.9 L Hct 35.2 L MCV 83.2 MCH 28.1 MCHC 33.8 RDW 15.8 H Plt Count 137 MPV 10.0 Gran % 96.9 H Lymph % (Auto) 2.0 L Knott % (Auto) 1.1 Eos % (Auto) 0.0 L Baso % (Auto) 0.0 Gran # 27.29 H Lymph # 0.6 L Knott # 0.3 Eos # 0.0 Baso # 0.01 pO2 92 H VBG pH 7.39 VBG pCO2 38.0 L VBG HCO3 23.0 VBG Total CO2 24.2 VBG O2 Sat (Calc) 99.3 H VBG Base Excess -1.7 L VBG Potassium 3.6 Sodium 137.0 136 Chloride 106.0 104 Glucose 180 H Lactate 3.3 H FiO2 21.0 Potassium 4.3 Carbon Dioxide 23 Anion Gap 13 BUN 16 Creatinine 0.9 Est GFR ( Amer) > 60 Est GFR (Non-Af Amer) > 60 Random Glucose 163 H Lactic Acid Calcium 7.9 L Total Bilirubin 1.3 AST 29 ALT 28 Alkaline Phosphatase 58 Total Protein 5.6 L Albumin 2.9 L Globulin 2.6 Albumin/Globulin Ratio 1.1 Venous Blood Potassium 3.6 12/07/16 09:38 WBC RBC Hgb Hct MCV MCH MCHC RDW Plt Count MPV Gran % Lymph % (Auto) Knott % (Auto) Eos % (Auto) Baso % (Auto) Gran # Lymph # Knott # Eos # Baso # pO2 VBG pH VBG pCO2 VBG HCO3 VBG Total CO2 VBG O2 Sat (Calc) VBG Base Excess VBG Potassium Sodium Chloride Glucose Lactate FiO2 Potassium Carbon Dioxide Anion Gap BUN Creatinine Est GFR ( Amer) Est GFR (Non-Af Amer) Random Glucose Lactic Acid 4.6 H* Calcium Total Bilirubin AST ALT Alkaline Phosphatase Total Protein Albumin Globulin Albumin/Globulin Ratio Venous Blood Potassium - Imaging and Cardiology CT scan - chest Additional comment: left lower lobe pneumonia Assessment & Plan (1) Pneumonia Status: Acute Comment: broad spectrum antibiotics, aspiration precaution, r/o oropharyngeal dysphagia (2) COPD exacerbation Status: Acute Comment: iv and inhale broncho dilators (3) Hypoxia Status: Acute Comment: supplement oxygen
[2016-12-07] MEDS ORDERED: Sodium Chloride 0.9% 1,000 ML IV ONE (14:55)
--- NOTE | 2016-12-07 15:37 | PCM.SEPTIC ---
Sepsis Progress Note - Reassessment Type Date of Evaluation: 12/07/16 Time of Evaluation: 15:00 Reassessment Type: Non-invasive reassessment - Non Invasive Reassessment Were the most recent vital sign reviewed: Yes Vital Sign (Latest): Temp Pulse Resp BP Pulse Ox 97.1 F L 85 19 153/62 H 96 12/07/16 11:53 12/07/16 11:53 12/07/16 11:53 12/07/16 11:53 12/07/16 06:00 Cardiovascular: Yes: Regular Rate, Rhythm Respiratory: Yes: Crackles Capillary Refill: Normal (Less than 2 sec) Skin: Warm, Dry
[2016-12-07] MEDS: Sodium Chloride 0.9% 300 ML IV SCH ×2 (16:16→19:25)
[2016-12-07] MEDS ORDERED: Metoprolol 1 mg/ml Inj IVP ONE ×2 (16:45→16:46)
--- NOTE | 2016-12-07 17:17 | PCM.RRTMUL ---
ELECTROPHYSIOLOGY TECHNICIAN Nurse Assessment - Situation ELECTROPHYSIOLOGY TECHNICIAN Responder Arrival Time:: 04:40 Location:: [facility] ELECTROPHYSIOLOGY TECHNICIAN Reason for Call: Chest Pain, Tachycardia, Hypertension - Respiratory Oxygen Delivery Method:: Nasal Cannula - Ventilator Settings SAO2 %:: 96 - Medication Medications Administered During ELECTROPHYSIOLOGY TECHNICIAN :: 5 mg Lopressor, 0.3 mg Nitrostat SL x 2 - Diagnostic Test Ordered EKG:: Yes Chest X-Ray:: Yes - Stat Labs Ordered ELECTROPHYSIOLOGY TECHNICIAN Stat Labs Ordered:: CBC, BMP, TROPONIN - Vital Signs Blood Pressure:: 200/84 Pulse Rate:: 120 Temperature:: 97.5 F Oxygen Saturation:: 99 - Recommendations 5) ELECTROPHYSIOLOGY TECHNICIAN Level of Care Recommendations: Remain in current setting 6) Notifications: Attending Physician I.Reason for ELECTROPHYSIOLOGY TECHNICIAN - A) Acute Change in Patient: (Select all that apply): Chest Pain - A) Initial Vital Signs: Blood Pressure: 200/84 Pulse Rate: 120 Temperature: 97.5 F O2 Sat by Pulse Oximetry: 99 Finger Stick Blood Glucose: 147 - B) Neurological Status (Select all that apply): Alert, Responsive, Oriented, Verbal, Follows Commands - C) Respiratory Oxygen Delivery Method: Nasal Cannula @L/min (3) - Constitutional Appears: No Acute Distress - Head Head Exam: ATRAUMATIC, NORMAL INSPECTION, NORMOCEPHALIC - Eyes Eye Exam: EOMI, Normal appearance, PERRL - Respiratory Exam Respiratory Exam: Rales, NORMAL BREATHING PATTERN - Cardiovascular Exam Cardiovascular Exam: Tachycardia, +S1, +S2 - GI/Abdominal Exam GI & Abdominal Exam: Soft, Normal Bowel Sounds - Neurological Exam Neurological Exam: Alert, Altered, Awake, CN II-XII Intact, Oriented x3 - Extremities Exam Extremities Exam: Full ROM, Normal Capillary Refill, Normal Inspection Plan - A. End of ELECTROPHYSIOLOGY TECHNICIAN Vital Signs: Blood Pressure: 137/74 Pulse Rate: 92 O2 Sat by Pulse Oximetry: 99 - B. Assessment of Findings&Treatment Plan Order CXR, CBC, CMP, Cardiac iso and fu
[2016-12-07 17:19] LABS: VENOUS BLOOD GAS PO2 45 mm/Hg (30-55); VENOUS BLOOD PH 7.37 (7.32-7.43)
[2016-12-07 17:20] LABS: HEMOGLOBIN 12.2 gm/dL (14.0-18.0); MEAN CORPUSCULAR HEMOGLOBIN 28.4 pg (25.0-35.0); MEAN CORPUSCULAR HGB CONC 34.3 g/dl (31.0-37.0); MEAN PLATELET VOLUME 9.8 fl (7.0-11.0); RBC 4.29 10^6/uL (3.5-6.1)
[2016-12-07 17:23] LABS: WHITE BLOOD COUNT 28.6 10^3/ul (4.5-11.0)
[2016-12-07 17:31] LABS: BLOOD UREA NITROGEN 15 mg/dL (7-21); CALCIUM 7.8 mg/dL (8.4-10.5); GFR AFRICAN-AMERICAN > 60; GFR NON-AFRICAN AMERICAN > 60
[2016-12-07 17:34] LABS: INR 1.11 (0.93-1.08); PARTIAL THROMBOPLASTIN TIME 33.6 Seconds (23.7-30.8)
[2016-12-07 17:41] LABS: TROPONIN I 0.03 ng/mL
--- NOTE | 2016-12-07 17:54 | CP.PCM.CON ---
History of Present Illness - History of Present Illness History of Present Illness: Infectious Disease Consultation: December 07, 2016 86 yo male with extensive past medical history presenting with progressive shortness of breath and worsening cough with production of yellow sputum. The patient was recently admitted to [facility] for COPD exacerbation and discharged with Nelly. Patient complains of subjective fevers, productive cough, and dyspnea. PMHx: COPD, Hypertension, TIA, chronic back pain, osteoarthritis, cholecystitis, recent pneumonia PSHx: none given Allergies: NKDA Social Hx: No given tobacco, EtOH, or illicit drug use history Active Medications Acetaminophen (Tylenol 325mg Tab) 650 mg PO Q4 PRN PRN Reason: Fever >100.4 F Albuterol/Ipratropium (Duoneb 3 Mg/0.5 Mg (3 Ml) Ud) 3 ml IH [id number] [facility] Last Admin: 12/07/16 16:04 Dose: 3 ml Albuterol/Ipratropium (Duoneb 3 Mg/0.5 Mg (3 Ml) Ud) 3 ml IH Q2H PRN PRN Reason: Shortness of Breath Arformoterol Tartrate (Brovana) 15 mcg IH [id number] [facility] Last Admin: 12/07/16 07:24 Dose: 15 mcg Aspirin (Aspirin Chewable) 81 mg PO DAILY [facility] Last Admin: 12/07/16 09:44 Dose: 81 mg Bisacodyl (Dulcolax) 5 mg PO BID PRN PRN Reason: Constipation Budesonide (Pulmicort Respules) 1 mg IH [id number] [facility] Last Admin: 12/07/16 07:25 Dose: 1 mg Enoxaparin Sodium (Lovenox) 40 mg SC DAILY [facility] PRN Reason: Protocol Last Admin: 12/07/16 09:42 Dose: 40 mg Guaifenesin (Mucinex La) 600 mg PO BID [facility] Vancomycin HCl (Vancomycin 1gm) 1 gm in 250 mls @ 167 mls/hr IVPB DAILY [facility] PRN Reason: Protocol Last Admin: 12/07/16 09:47 Dose: 167 mls/hr Meropenem 1g/NS 100mL IVPB (Meropenem 1g/Ns 100ml Ivpb) 1 gm in 100 mls @ 100 mls/hr IVPB Q8 [facility] PRN Reason: Protocol Stop: 12/07/16 22:59 Last Admin: 12/07/16 13:32 Dose: 100 mls/hr Sodium Chloride (Sodium Chloride 0.9%) 300 mls @ 150 mls/hr IV .Q2H [facility] Stop: 12/07/16 17:50 Last Admin: 12/07/16 16:16 Dose: 150 mls/hr Losartan Potassium (Cozaar) 50 mg PO DAILY [facility] Last Admin: 12/07/16 09:46 Dose: 50 mg Methylprednisolone (Solu-Medrol) 40 mg IVP DAILY [facility] Pantoprazole Sodium (Protonix Inj) 40 mg IVP DAILY [facility] Last Admin: 12/07/16 09:46 Dose: 40 mg Family Hx: none given ROS: No chills, chest pain, melena, hematuria, hematemesis, hematochezia, depression , anxiety, diarrhea, and abdominal pain. No SOB. Patient with productive cough , headaches, nausea, vomiting, and subjective fevers. Past Patient History - Infectious Disease Hx of Infectious Diseases: None - Tetanus Immunizations Tetanus Immunization: Unknown - Past Social History Smoking Status: Former Smoker - CARDIAC Hx Hypertension: Yes - PULMONARY Hx Chronic Obstructive Pulmonary Disease (COPD): Yes - NEUROLOGICAL Hx Transient Ischemic Attacks (TIA): Yes - HEENT Hx Cataracts: Yes - RENAL Hx Renal Failure: Yes - ENDOCRINE/METABOLIC Hx Endocrine Disorders: No - HEMATOLOGICAL/ONCOLOGICAL Hx Blood Disorders: No - INTEGUMENTARY Hx Dermatological Problems: Yes (MULTIPLE ROUND OLD AGE SPOTS TO FACE,ARMS) - MUSCULOSKELETAL/RHEUMATOLOGICAL Hx Arthritis: Yes - GASTROINTESTINAL Hx Gastrointestinal Disorders: No - GENITOURINARY/GYNECOLOGICAL Hx Prostate Problems: Yes - PSYCHIATRIC Hx Psychophysiologic Disorder: No Hx Substance Use: No - SURGICAL HISTORY Hx Surgeries: No - ANESTHESIA Hx Anesthesia: No Meds Allergies/Adverse Reactions: Allergies Allergy/AdvReac Type Severity Reaction Status Date / Time No Known Allergies Allergy Verified 12/06/16 16:19 - Medications Medications: Current Medications Acetaminophen (Tylenol 325mg Tab) 650 mg PO Q4 PRN PRN Reason: Fever >100.4 F Albuterol/Ipratropium (Duoneb 3 Mg/0.5 Mg (3 Ml) Ud) 3 ml IH [id number] [facility] Last Admin: 12/07/16 16:04 Dose: 3 ml Albuterol/Ipratropium (Duoneb 3 Mg/0.5 Mg (3 Ml) Ud) 3 ml IH Q2H PRN PRN Reason: Shortness of Breath Arformoterol Tartrate (Brovana) 15 mcg IH [id number] [facility] Last Admin: 12/07/16 07:24 Dose: 15 mcg Aspirin (Aspirin Chewable) 81 mg PO DAILY [facility] Last Admin: 12/07/16 09:44 Dose: 81 mg Bisacodyl (Dulcolax) 5 mg PO BID PRN PRN Reason: Constipation Budesonide (Pulmicort Respules) 1 mg IH [id number] [facility] Last Admin: 12/07/16 07:25 Dose: 1 mg Enoxaparin Sodium (Lovenox) 40 mg SC DAILY [facility] PRN Reason: Protocol Last Admin: 12/07/16 09:42 Dose: 40 mg Guaifenesin (Mucinex La) 600 mg PO BID [facility] Vancomycin HCl (Vancomycin 1gm) 1 gm in 250 mls @ 167 mls/hr IVPB DAILY [facility] PRN Reason: Protocol Last Admin: 12/07/16 09:47 Dose: 167 mls/hr Meropenem 1g/NS 100mL IVPB (Meropenem 1g/Ns 100ml Ivpb) 1 gm in 100 mls @ 100 mls/hr IVPB Q8 [facility] PRN Reason: Protocol Stop: 12/07/16 22:59 Last Admin: 12/07/16 13:32 Dose: 100 mls/hr Sodium Chloride (Sodium Chloride 0.9%) 300 mls @ 150 mls/hr IV .Q2H [facility] Stop: 12/07/16 17:50 Last Admin: 12/07/16 16:16 Dose: 150 mls/hr Losartan Potassium (Cozaar) 50 mg PO DAILY [facility] Last Admin: 12/07/16 09:46 Dose: 50 mg Methylprednisolone (Solu-Medrol) 40 mg IVP DAILY [facility] Pantoprazole Sodium (Protonix Inj) 40 mg IVP DAILY [facility] Last Admin: 12/07/16 09:46 Dose: 40 mg Physical Exam - Constitutional Appears: Non-toxic, No Acute Distress - Head Exam Head Exam: ATRAUMATIC, NORMOCEPHALIC - Eye Exam Eye Exam: EOMI, PERRL Pupil Exam: NORMAL ACCOMODATION, PERRL - ENT Exam ENT Exam: Mucous Membranes Moist, Normal External Ear Exam, TM's Normal Bilaterally - Neck Exam Neck exam: Positive for: Full Rom, Normal Inspection - Respiratory Exam Respiratory Exam: Accessory Muscle Use, Rales. absent: Rhonchi, Wheezes - Cardiovascular Exam Cardiovascular Exam: REGULAR RHYTHM, RRR, +S1, +S2 - GI/Abdominal Exam GI & Abdominal Exam: Normal Bowel Sounds, Soft. absent: Distended, Tenderness - Extremities Exam Extremities exam: Positive for: full ROM, normal inspection - Neurological Exam Neurological exam: Alert, CN II-XII Intact, Normal Gait, Oriented x3 - Psychiatric Exam Psychiatric exam: Normal Affect, Normal Mood - Skin Skin Exam: Intact, Normal Color Results - Vital Signs Recent Vital Signs: Last Vital Signs Temp 97.5 F L 12/07/16 17:19 Pulse 92 H 12/07/16 17:19 Resp 19 12/07/16 11:53 BP 137/74 12/07/16 17:19 Pulse Ox 96 12/07/16 06:00 - Labs Result Diagrams: 12/07/16 17:05 12/07/16 17:05 Labs: Laboratory Results - last 24 hr 12/06/16 12/07/16 12/07/16 19:45 07:45 07:45 WBC 28.2 H* D RBC 4.23 Hgb 11.9 L Hct 35.2 L MCV 83.2 MCH 28.1 MCHC 33.8 RDW 15.8 H Plt Count 137 MPV 10.0 Gran % 96.9 H Lymph % (Auto) 2.0 L Johnson % (Auto) 1.1 Eos % (Auto) 0.0 L Baso % (Auto) 0.0 Gran # 27.29 H Lymph # 0.6 L Johnson # 0.3 Eos # 0.0 Baso # 0.01 PT INR APTT pO2 92 H VBG pH 7.39 VBG pCO2 38.0 L VBG HCO3 23.0 VBG Total CO2 24.2 VBG O2 Sat (Calc) 99.3 H VBG Base Excess -1.7 L VBG Potassium 3.6 Sodium 137.0 136 Chloride 106.0 104 Glucose 180 H Lactate 3.3 H FiO2 21.0 Potassium 4.3 Carbon Dioxide 23 Anion Gap 13 BUN 16 Creatinine 0.9 Est GFR ( Amer) > 60 Est GFR (Non-Af Amer) > 60 POC Glucose (mg/dL) Random Glucose 163 H Lactic Acid Calcium 7.9 L Total Bilirubin 1.3 AST 29 ALT 28 Alkaline Phosphatase 58 Lactate Dehydrogenase Total Creatine Kinase Total Protein 5.6 L Albumin 2.9 L Globulin 2.6 Albumin/Globulin Ratio 1.1 Venous Blood Potassium 3.6 12/07/16 12/07/16 12/07/16 09:38 14:28 15:12 WBC RBC Hgb Hct MCV MCH MCHC RDW Plt Count MPV Gran % Lymph % (Auto) Johnson % (Auto) Eos % (Auto) Baso % (Auto) Gran # Lymph # Johnson # Eos # Baso # PT INR APTT pO2 VBG pH VBG pCO2 VBG HCO3 VBG Total CO2 VBG O2 Sat (Calc) VBG Base Excess VBG Potassium Sodium Chloride Glucose Lactate FiO2 Potassium Carbon Dioxide Anion Gap BUN Creatinine Est GFR ( Amer) Est GFR (Non-Af Amer) POC Glucose (mg/dL) 168 H Random Glucose Lactic Acid 4.6 H* 4.2 H* Calcium Total Bilirubin AST ALT Alkaline Phosphatase Lactate Dehydrogenase Total Creatine Kinase Total Protein Albumin Globulin Albumin/Globulin Ratio Venous Blood Potassium 12/07/16 12/07/16 12/07/16 16:32 16:45 17:05 WBC RBC Hgb Hct MCV MCH MCHC RDW Plt Count MPV Gran % Lymph % (Auto) Johnson % (Auto) Eos % (Auto) Baso % (Auto) Gran # Lymph # Johnson # Eos # Baso # PT INR APTT pO2 VBG pH VBG pCO2 VBG HCO3 VBG Total CO2 VBG O2 Sat (Calc) VBG Base Excess VBG Potassium Sodium Chloride Glucose Lactate FiO2 Potassium Carbon Dioxide Anion Gap BUN Creatinine Est GFR ( Amer) Est GFR (Non-Af Amer) POC Glucose (mg/dL) 167 H 147 H Random Glucose Lactic Acid 3.6 H Calcium Total Bilirubin AST ALT Alkaline Phosphatase Lactate Dehydrogenase Total Creatine Kinase Total Protein Albumin Globulin Albumin/Globulin Ratio Venous Blood Potassium 12/07/16 12/07/16 12/07/16 17:05 17:05 17:05 WBC 28.6 H* RBC 4.29 Hgb 12.2 L Hct 35.6 L MCV 83.0 MCH 28.4 MCHC 34.3 RDW 16.0 H Plt Count 139 MPV 9.8 Gran % Lymph % (Auto) Johnson % (Auto) Eos % (Auto) Baso % (Auto) Gran # Lymph # Johnson # Eos # Baso # PT 12.0 H INR 1.11 H APTT 33.6 H pO2 VBG pH VBG pCO2 VBG HCO3 VBG Total CO2 VBG O2 Sat (Calc) VBG Base Excess VBG Potassium Sodium 136 Chloride 105 Glucose Lactate FiO2 Potassium 3.9 Carbon Dioxide 22 Anion Gap 13 BUN 15 Creatinine 0.9 Est GFR ( Amer) > 60 Est GFR (Non-Af Amer) > 60 POC Glucose (mg/dL) Random Glucose 147 H Lactic Acid Calcium 7.8 L Total Bilirubin AST ALT Alkaline Phosphatase Lactate Dehydrogenase 447 Total Creatine Kinase 23 L Total Protein Albumin Globulin Albumin/Globulin Ratio Venous Blood Potassium 12/07/16 17:05 WBC RBC Hgb Hct MCV MCH MCHC RDW Plt Count MPV Gran % Lymph % (Auto) Johnson % (Auto) Eos % (Auto) Baso % (Auto) Gran # Lymph # Johnson # Eos # Baso # PT INR APTT pO2 45 VBG pH 7.37 VBG pCO2 40.0 VBG HCO3 23.1 VBG Total CO2 24.3 VBG O2 Sat (Calc) 85.8 H VBG Base Excess -2.0 L VBG Potassium 3.9 Sodium 139.0 Chloride 106.0 Glucose 152 H Lactate 3.6 H FiO2 21.0 Potassium Carbon Dioxide Anion Gap BUN Creatinine Est GFR ( Amer) Est GFR (Non-Af Amer) POC Glucose (mg/dL) Random Glucose Lactic Acid Calcium Total Bilirubin AST ALT Alkaline Phosphatase Lactate Dehydrogenase Total Creatine Kinase Total Protein Albumin Globulin Albumin/Globulin Ratio Venous Blood Potassium 3.9 Assessment & Plan - Assessment and Plan (Free Text) Assessment: 86 yo male with productive cough, subjective fevers, and SOB found with leukocytosis and findings of left lower lobe pneumonia on the CT scan of the chest. The patient is awake and alert. He feels better since coming to the hospital. He was febrile to 101.5 F on admission. The patient has multiple medical issues including HTN and COPD. Started on Vancomycin and Cefepime for antibiotic coverage. Noted Meropenem started today. Cultures negative at 24 hours. Would continue on Cefepime for now with consideration of addition of Azithromycin or Levaquin. Sputum for culture. The patient may not need Vancomycin but would await sputum cultures. Thank you for allowing me to participate in the care of this patient, we will follow with you.
[2016-12-07] MEDS: Azithromycin 500MG/NS 250ml 500 MG/250 ML BAG IVPB SCH (18:27)
[2016-12-07] MEDS: guaiFENesin 600 mg ER Tab PO SCH (18:27)
--- NOTE | 2016-12-07 19:42 | CARD ---
APPROVED REPORT EKG Measurement Heart [id number] <Conclusion> Sinus tachycardia with premature atrial complexes and premature ventricular complexes or fusion complexes Incomplete right bundle branch block Possible Lateral infarct, age undetermined ST & T wave abnormality, consider anterior ischemia Abnormal ECG
[2016-12-07] MEDS: Cefepime 1gm in NS 100ml 1 GM/100 ML BAG IVPB SCH (21:23)
[2016-12-08 01:53] LABS: TROPONIN I 0.05 ng/mL
[2016-12-08] MEDS: Albuterol-Ipratrop 3 mg / 0.5 (3 ml) UD IH SCH ×5 (04:53→19:12)
[2016-12-08 07:01] LABS: ALB/GLOB RATIO 1.1 (1.1-1.8); ALBUMIN 3.1 g/dL (3.0-4.8); ALT/SGPT 28 U/L (7-56); AST/SGOT 26 U/L (15-59); BLOOD UREA NITROGEN 15 mg/dL (7-21); GFR AFRICAN-AMERICAN > 60; GFR NON-AFRICAN AMERICAN > 60
[2016-12-08 07:16] LABS: GRAN # 24.56 (1.4-6.5); GRAN % 92.4 % (50.0-68.0); HEMOGLOBIN 12.2 gm/dL (14.0-18.0); LYMPH # 1.2 (1.2-3.4); LYMPH % 4.4 % (22.0-35.0); MEAN CELL VOLUME 82.8 fL (80.0-105.0); MEAN CORPUSCULAR HGB CONC 33.8 g/dl (31.0-37.0); MEAN PLATELET VOLUME 10.7 fl (7.0-11.0); MONO # 0.9 (0.1-0.6); MONO % 3.2 % (1.0-6.0); PLATELET COUNT 147 10^3/uL (120.0-450.0); RBC 4.36 10^6/uL (3.5-6.1)
[2016-12-08] MEDS: Arformoterol 15 mcg/2 ml Inh Sol IH SCH ×2 (07:41→19:12)
[2016-12-08] MEDS: Budesonide 0.5 mg/2 ml Inhal Susp UD IH SCH ×2 (07:41→19:12)
[2016-12-08 07:47] LABS: WHITE BLOOD COUNT 26.6 10^3/ul (4.5-11.0)
[2016-12-08 08:19] LABS: TROPONIN I 0.06 ng/mL
[2016-12-08] MEDS ORDERED: MethylPREDNISolone 40 mg Vial IVP SCH (10:00)
[2016-12-08] MEDS: guaiFENesin 600 mg ER Tab PO SCH ×2 (10:18→17:24)
[2016-12-08] MEDS: Enoxaparin 30 mg Syringe SC SCH (10:18)
[2016-12-08] MEDS: Azithromycin 500MG/NS 250ml 500 MG/250 ML BAG IVPB SCH (10:19)
--- NOTE | 2016-12-08 10:59 | CP.PCM.CON ---
History of Present Illness - History of Present Illness History of Present Illness: 86 y/o H male h/o COPD, dementia osteoarthritis presented with pneuminia Tropnonin are in the indeterminate range The patient reported chest pain No prior heart attack or coronary intervention Review of Systems - Review of Systems Systems not reviewed;Unavailable: Dementia - Constitutional Constitutional: Malaise - Cardiovascular Cardiovascular: Chest Pain - Respiratory Respiratory: Chest Congestion Past Patient History - Infectious Disease Hx of Infectious Diseases: None - Tetanus Immunizations Tetanus Immunization: Unknown - Past Social History Smoking Status: Former Smoker - CARDIAC Hx Cardiac Disorders: No Hx Hypertension: Yes - PULMONARY Hx Chronic Obstructive Pulmonary Disease (COPD): Yes - NEUROLOGICAL Hx Transient Ischemic Attacks (TIA): Yes - HEENT Hx Cataracts: Yes - RENAL Hx Renal Failure: Yes - ENDOCRINE/METABOLIC Hx Endocrine Disorders: No - HEMATOLOGICAL/ONCOLOGICAL Hx Blood Disorders: No - INTEGUMENTARY Hx Dermatological Problems: Yes (MULTIPLE ROUND OLD AGE SPOTS TO FACE,ARMS) - MUSCULOSKELETAL/RHEUMATOLOGICAL Hx Arthritis: Yes - GASTROINTESTINAL Hx Gastrointestinal Disorders: No - GENITOURINARY/GYNECOLOGICAL Hx Prostate Problems: Yes - PSYCHIATRIC Hx Psychophysiologic Disorder: No Hx Substance Use: No - SURGICAL HISTORY Hx Surgeries: No - ANESTHESIA Hx Anesthesia: No Meds Allergies/Adverse Reactions: Allergies Allergy/AdvReac Type Severity Reaction Status Date / Time No Known Allergies Allergy Verified 12/06/16 16:19 - Medications Medications: Current Medications Acetaminophen (Tylenol 325mg Tab) 650 mg PO Q4 PRN PRN Reason: Fever >100.4 F Albuterol/Ipratropium (Duoneb 3 Mg/0.5 Mg (3 Ml) Ud) 3 ml IH [id number] [facility] Last Admin: 12/08/16 07:41 Dose: 3 ml Albuterol/Ipratropium (Duoneb 3 Mg/0.5 Mg (3 Ml) Ud) 3 ml IH Q2H PRN PRN Reason: Shortness of Breath Arformoterol Tartrate (Brovana) 15 mcg IH [id number] [facility] Last Admin: 12/08/16 07:41 Dose: 15 mcg Aspirin (Aspirin Chewable) 81 mg PO DAILY [facility] Last Admin: 12/08/16 10:18 Dose: 81 mg Bisacodyl (Dulcolax) 5 mg PO BID PRN PRN Reason: Constipation Budesonide (Pulmicort Respules) 1 mg IH [id number] [facility] Last Admin: 12/08/16 07:41 Dose: 1 mg Enoxaparin Sodium (Lovenox) 40 mg SC DAILY [facility] PRN Reason: Protocol Last Admin: 12/08/16 10:18 Dose: 40 mg Guaifenesin (Mucinex La) 600 mg PO BID [facility] Last Admin: 12/08/16 10:18 Dose: 600 mg Vancomycin HCl (Vancomycin 1gm) 1 gm in 250 mls @ 167 mls/hr IVPB DAILY [facility] PRN Reason: Protocol Last Admin: 12/07/16 09:47 Dose: 167 mls/hr Cefepime HCl (Maxipime 1gm) 1 gm in 100 mls @ 100 mls/hr IVPB Q12 [facility] PRN Reason: Protocol Last Admin: 12/07/16 21:23 Dose: 100 mls/hr Azithromycin (Zithromax 500mg In Ns) 500 mg in 250 mls @ 167 mls/hr IVPB DAILY [facility] PRN Reason: Protocol Last Admin: 12/08/16 10:19 Dose: 167 mls/hr Losartan Potassium (Cozaar) 50 mg PO DAILY [facility] Last Admin: 12/08/16 10:18 Dose: 50 mg Pantoprazole Sodium (Protonix Inj) 40 mg IVP DAILY [facility] Last Admin: 12/08/16 10:19 Dose: 40 mg Prednisone (Prednisone Tab) 40 mg PO DAILY [facility] Stop: 12/11/16 10:00 Last Admin: 12/08/16 10:18 Dose: 40 mg Physical Exam - Head Exam Head Exam: ATRAUMATIC, NORMAL INSPECTION, NORMOCEPHALIC - Eye Exam Eye Exam: Normal appearance - ENT Exam ENT Exam: Normal Exam - Neck Exam Neck exam: Positive for: Normal Inspection - Respiratory Exam Respiratory Exam: Decreased Breath Sounds, Rhonchi - Cardiovascular Exam Cardiovascular Exam: REGULAR RHYTHM - Extremities Exam Extremities exam: Positive for: normal inspection Results - Vital Signs Recent Vital Signs: Last Vital Signs Temp 98.2 F 12/08/16 06:00 Pulse 65 12/08/16 10:18 Resp 20 12/08/16 06:00 BP 151/71 H 12/08/16 10:18 Pulse Ox 96 12/08/16 06:00 - Labs Result Diagrams: 12/08/16 05:50 12/08/16 05:50 Labs: Laboratory Results - last 24 hr 12/07/16 12/07/16 12/07/16 14:28 15:12 16:32 WBC RBC Hgb Hct MCV MCH MCHC RDW Plt Count MPV Gran % Lymph % (Auto) Dougherty % (Auto) Eos % (Auto) Baso % (Auto) Gran # Lymph # Dougherty # Eos # Baso # PT INR APTT pO2 VBG pH VBG pCO2 VBG HCO3 VBG Total CO2 VBG O2 Sat (Calc) VBG Base Excess VBG Potassium Sodium Chloride Glucose Lactate FiO2 Potassium Carbon Dioxide Anion Gap BUN Creatinine Est GFR ( Amer) Est GFR (Non-Af Amer) POC Glucose (mg/dL) 168 H 167 H Random Glucose Lactic Acid 4.2 H* Calcium Total Bilirubin AST ALT Alkaline Phosphatase Lactate Dehydrogenase Total Creatine Kinase Troponin I Total Protein Albumin Globulin Albumin/Globulin Ratio Venous Blood Potassium 12/07/16 12/07/16 12/07/16 16:45 17:05 17:05 WBC 28.6 H* RBC 4.29 Hgb 12.2 L Hct 35.6 L MCV 83.0 MCH 28.4 MCHC 34.3 RDW 16.0 H Plt Count 139 MPV 9.8 Gran % Lymph % (Auto) Dougherty % (Auto) Eos % (Auto) Baso % (Auto) Gran # Lymph # Dougherty # Eos # Baso # PT INR APTT pO2 VBG pH VBG pCO2 VBG HCO3 VBG Total CO2 VBG O2 Sat (Calc) VBG Base Excess VBG Potassium Sodium Chloride Glucose Lactate FiO2 Potassium Carbon Dioxide Anion Gap BUN Creatinine Est GFR ( Amer) Est GFR (Non-Af Amer) POC Glucose (mg/dL) 147 H Random Glucose Lactic Acid 3.6 H Calcium Total Bilirubin AST ALT Alkaline Phosphatase Lactate Dehydrogenase Total Creatine Kinase Troponin I Total Protein Albumin Globulin Albumin/Globulin Ratio Venous Blood Potassium 12/07/16 12/07/16 12/07/16 17:05 17:05 17:05 WBC RBC Hgb Hct MCV MCH MCHC RDW Plt Count MPV Gran % Lymph % (Auto) Dougherty % (Auto) Eos % (Auto) Baso % (Auto) Gran # Lymph # Dougherty # Eos # Baso # PT 12.0 H INR 1.11 H APTT 33.6 H pO2 45 VBG pH 7.37 VBG pCO2 40.0 VBG HCO3 23.1 VBG Total CO2 24.3 VBG O2 Sat (Calc) 85.8 H VBG Base Excess -2.0 L VBG Potassium 3.9 Sodium 136 139.0 Chloride 105 106.0 Glucose 152 H Lactate 3.6 H FiO2 21.0 Potassium 3.9 Carbon Dioxide 22 Anion Gap 13 BUN 15 Creatinine 0.9 Est GFR ( Amer) > 60 Est GFR (Non-Af Amer) > 60 POC Glucose (mg/dL) Random Glucose 147 H Lactic Acid Calcium 7.8 L Total Bilirubin AST ALT Alkaline Phosphatase Lactate Dehydrogenase 447 Total Creatine Kinase 23 L Troponin I 0.03 Total Protein Albumin Globulin Albumin/Globulin Ratio Venous Blood Potassium 3.9 12/08/16 12/08/16 12/08/16 01:15 05:50 05:50 WBC 26.6 H* RBC 4.36 Hgb 12.2 L Hct 36.1 L MCV 82.8 MCH 28.0 MCHC 33.8 RDW 16.0 H Plt Count 147 MPV 10.7 Gran % 92.4 H Lymph % (Auto) 4.4 L Dougherty % (Auto) 3.2 Eos % (Auto) 0.0 L Baso % (Auto) 0.0 Gran # 24.56 H Lymph # 1.2 Dougherty # 0.9 H Eos # 0.0 Baso # 0.00 PT INR APTT pO2 VBG pH VBG pCO2 VBG HCO3 VBG Total CO2 VBG O2 Sat (Calc) VBG Base Excess VBG Potassium Sodium 139 Chloride 106 Glucose Lactate FiO2 Potassium 4.0 Carbon Dioxide 25 Anion Gap 12 BUN 15 Creatinine 0.9 Est GFR ( Amer) > 60 Est GFR (Non-Af Amer) > 60 POC Glucose (mg/dL) Random Glucose 119 H Lactic Acid Calcium 8.0 L Total Bilirubin 1.6 H AST 26 ALT 28 Alkaline Phosphatase 63 Lactate Dehydrogenase 444 Total Creatine Kinase 29 L Troponin I 0.05 D Total Protein 5.9 Albumin 3.1 Globulin 2.8 Albumin/Globulin Ratio 1.1 Venous Blood Potassium 12/08/16 05:50 WBC RBC Hgb Hct MCV MCH MCHC RDW Plt Count MPV Gran % Lymph % (Auto) Dougherty % (Auto) Eos % (Auto) Baso % (Auto) Gran # Lymph # Dougherty # Eos # Baso # PT INR APTT pO2 VBG pH VBG pCO2 VBG HCO3 VBG Total CO2 VBG O2 Sat (Calc) VBG Base Excess VBG Potassium Sodium Chloride Glucose Lactate FiO2 Potassium Carbon Dioxide Anion Gap BUN Creatinine Est GFR ( Amer) Est GFR (Non-Af Amer) POC Glucose (mg/dL) Random Glucose Lactic Acid Calcium Total Bilirubin AST ALT Alkaline Phosphatase Lactate Dehydrogenase 529 Total Creatine Kinase 38 Troponin I 0.06 Total Protein Albumin Globulin Albumin/Globulin Ratio Venous Blood Potassium Assessment & Plan - Assessment and Plan (Free Text) Assessment: pneumonia Sepsis Chest pain Dementia Osteoarthritis Plan: Cont. AsA , Cozar , Lovenox IV Zosyn, Vanco and Zithromax Obtain Echo EKGs and prior Echo in reviewed Conservative approach
--- NOTE | 2016-12-08 11:03 | RAD ---
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 PLEURA: No significant pleural effusion identified, no pneumothorax apparent. CARDIOVASCULAR: Mild cardiomegaly. Mild vascular congestion OSSEOUS STRUCTURES: No significant abnormalities. VISUALIZED UPPER ABDOMEN: Normal. OTHER FINDINGS: None. IMPRESSION: Mild cardiomegaly and mild vascular congestion
--- NOTE | 2016-12-08 11:19 | RAD ---
HISTORY: sob COMPARISON: 12/07/2016 FINDINGS: LUNGS: No active pulmonary disease. PLEURA: No significant pleural effusion identified, no pneumothorax apparent. CARDIOVASCULAR: Mild cardiomegaly OSSEOUS STRUCTURES: No significant abnormalities. VISUALIZED UPPER ABDOMEN: Normal. OTHER FINDINGS: None. IMPRESSION: No active disease.
--- NOTE | 2016-12-08 13:39 | CP.PCM.PN ---
Addendum entered and electronically signed by Eamon Car DO 12/08/16 13:42 : Cardiology consulted and recommended to cont conservative management. Cont Asa, cozar, and lovenox. Original Note: <Eamon Car - Last Filed: 12/08/16 13:33> Subjective - Date & Time of Evaluation Date of Evaluation: 12/08/16 Time of Evaluation: 07:00 - Subjective Subjective: Medicine progress note: Pt seen and examined at bedside. Pt had a [employer]ER called yesterday for sob and chest pain. Today he feels much better. Denies any sob or cp. States his cough has improved. Denies any morales, dizziness, f/c, abd pain, n/v/d. Objective - Vital Signs/Intake and Output Vital Signs (last 24 hours): Temp Pulse Resp BP Pulse Ox 97 F L 96 H 16 135/60 96 12/08/16 12:00 12/08/16 12:00 12/08/16 12:00 12/08/16 12:00 12/08/16 06:00 Intake and Output: 12/08/16 12/08/16 06:59 18:59 Intake Total 340 340 Output Total 525 525 Balance -185 -185 - Medications Medications: Current Medications Acetaminophen (Tylenol 325mg Tab) 650 mg PO Q4 PRN PRN Reason: Fever >100.4 F Albuterol/Ipratropium (Duoneb 3 Mg/0.5 Mg (3 Ml) Ud) 3 ml IH [id number] [facility] Last Admin: 12/08/16 11:08 Dose: Not Given Albuterol/Ipratropium (Duoneb 3 Mg/0.5 Mg (3 Ml) Ud) 3 ml IH Q2H PRN PRN Reason: Shortness of Breath Arformoterol Tartrate (Brovana) 15 mcg IH [id number] [facility] Last Admin: 12/08/16 07:41 Dose: 15 mcg Aspirin (Aspirin Chewable) 81 mg PO DAILY [facility] Last Admin: 12/08/16 10:18 Dose: 81 mg Bisacodyl (Dulcolax) 5 mg PO BID PRN PRN Reason: Constipation Budesonide (Pulmicort Respules) 1 mg IH [id number] [facility] Last Admin: 12/08/16 07:41 Dose: 1 mg Enoxaparin Sodium (Lovenox) 40 mg SC DAILY [facility] PRN Reason: Protocol Last Admin: 12/08/16 10:18 Dose: 40 mg Guaifenesin (Mucinex La) 600 mg PO BID [facility] Last Admin: 12/08/16 10:18 Dose: 600 mg Vancomycin HCl (Vancomycin 1gm) 1 gm in 250 mls @ 167 mls/hr IVPB DAILY [facility] PRN Reason: Protocol Last Admin: 12/07/16 09:47 Dose: 167 mls/hr Cefepime HCl (Maxipime 1gm) 1 gm in 100 mls @ 100 mls/hr IVPB Q12 [facility] PRN Reason: Protocol Last Admin: 12/07/16 21:23 Dose: 100 mls/hr Azithromycin (Zithromax 500mg In Ns) 500 mg in 250 mls @ 167 mls/hr IVPB DAILY [facility] PRN Reason: Protocol Last Admin: 12/08/16 10:19 Dose: 167 mls/hr Losartan Potassium (Cozaar) 50 mg PO DAILY [facility] Last Admin: 12/08/16 10:18 Dose: 50 mg Pantoprazole Sodium (Protonix Inj) 40 mg IVP DAILY [facility] Last Admin: 12/08/16 10:19 Dose: 40 mg Prednisone (Prednisone Tab) 40 mg PO DAILY [facility] Stop: 12/11/16 10:00 Last Admin: 12/08/16 10:18 Dose: 40 mg - Labs Labs: 12/08/16 05:50 12/08/16 05:50 PT 12.0 Seconds (9.9-11.8) H 12/07/16 17:05 INR 1.11 (0.93-1.08) H 12/07/16 17:05 APTT 33.6 Seconds (23.7-30.8) H 12/07/16 17:05 - Constitutional Appears: No Acute Distress - Head Exam Head Exam: ATRAUMATIC, NORMAL INSPECTION, NORMOCEPHALIC - Eye Exam Eye Exam: EOMI, Normal appearance, PERRL Pupil Exam: NORMAL ACCOMODATION, PERRL - ENT Exam ENT Exam: Mucous Membranes Moist, Normal Exam - Neck Exam Neck Exam: Full ROM, Normal Inspection. absent: Lymphadenopathy - Respiratory Exam Respiratory Exam: Clear to Ausculation Bilateral, Rhonchi, NORMAL BREATHING PATTERN. absent: Wheezes Additional comments: crackles - Cardiovascular Exam Cardiovascular Exam: REGULAR RHYTHM, RRR, +S1, +S2. absent: Murmur - GI/Abdominal Exam GI & Abdominal Exam: Soft, Normal Bowel Sounds. absent: Distended, Tenderness - Extremities Exam Extremities Exam: Full ROM, Normal Capillary Refill, Normal Inspection. absent : Joint Swelling, Pedal Edema - Back Exam Back Exam: NORMAL INSPECTION - Neurological Exam Neurological Exam: Alert, Awake, CN II-XII Intact, Oriented x3 - Psychiatric Exam Psychiatric exam: Normal Affect, Normal Mood Assessment and Plan - Assessment and Plan (Free Text) Assessment: 86yo male with history of COPD, hypertension, TIA, osteoarthritis presents with sepsis 2/2 L lower lobe pneumonia 1. Sepsis 2/2 L lower lobe pneumonia - Currently afebrile, HR - 96, wbc 26.6 - Repeat Lactic Acid 4.6 --> 4.2 --> 3.6 - Cont Vanc, cefepime, and azithromycin - CT chest w/o contrast - L lower lobe pneumonia -CXR reviewed - no active disease -EKG reviewed; sinus rhythm with PAC's, left axis deviation, incomplete RBBB, inferior infarct (age undetermined); compared to prior EKG's -Tylenol 650mg q4h PRN for fevers -Sepsis workup pending: Blood negative x 24hr, urine neg, sputum cultures; procalcitonin .05 -ID consulted - Dr. Mcdowell - cont vanc cefpime and azithro 2. COPD -Continue duoneb q4h [facility]IE and q2n PRN -Solumedrol 40mg q12h -O2 supplementation to keep SaO2 90-94 -Continue home inhaled Pulmicort and Brovana -Pulmonary consulted - Dr. Lynch - cont current management 3. Hypertension -Continue home losartan 4. GI/DVT ppx -Protonix & Lovenox Patient seen and case discussed in detail with Dr. Santos. <Tom PLASCENCIA,[facility] - Last Filed: 12/08/16 14:44> Objective - Vital Signs/Intake and Output Vital Signs (last 24 hours): Temp Pulse Resp BP Pulse Ox 97 F L 96 H 16 135/60 96 12/08/16 12:00 12/08/16 14:00 12/08/16 12:00 12/08/16 12:00 12/08/16 06:00 Intake and Output: 12/08/16 12/08/16 06:59 18:59 Intake Total 340 340 Output Total 525 525 Balance -185 -185 - Medications Medications: Current Medications Acetaminophen (Tylenol 325mg Tab) 650 mg PO Q4 PRN PRN Reason: Fever >100.4 F Albuterol/Ipratropium (Duoneb 3 Mg/0.5 Mg (3 Ml) Ud) 3 ml IH [id number] [facility] Last Admin: 12/08/16 11:08 Dose: Not Given Albuterol/Ipratropium (Duoneb 3 Mg/0.5 Mg (3 Ml) Ud) 3 ml IH Q2H PRN PRN Reason: Shortness of Breath Arformoterol Tartrate (Brovana) 15 mcg IH [id number] [facility] Last Admin: 12/08/16 07:41 Dose: 15 mcg Aspirin (Aspirin Chewable) 81 mg PO DAILY [facility] Last Admin: 12/08/16 10:18 Dose: 81 mg Bisacodyl (Dulcolax) 5 mg PO BID PRN PRN Reason: Constipation Budesonide (Pulmicort Respules) 1 mg IH [id number] [facility] Last Admin: 12/08/16 07:41 Dose: 1 mg Enoxaparin Sodium (Lovenox) 40 mg SC DAILY [facility] PRN Reason: Protocol Last Admin: 12/08/16 10:18 Dose: 40 mg Guaifenesin (Mucinex La) 600 mg PO BID [facility] Last Admin: 12/08/16 10:18 Dose: 600 mg Vancomycin HCl (Vancomycin 1gm) 1 gm in 250 mls @ 167 mls/hr IVPB DAILY [facility] PRN Reason: Protocol Last Admin: 12/08/16 13:57 Dose: 167 mls/hr Cefepime HCl (Maxipime 1gm) 1 gm in 100 mls @ 100 mls/hr IVPB Q12 [facility] PRN Reason: Protocol Last Admin: 12/07/16 21:23 Dose: 100 mls/hr Azithromycin (Zithromax 500mg In Ns) 500 mg in 250 mls @ 167 mls/hr IVPB DAILY [facility] PRN Reason: Protocol Last Admin: 12/08/16 10:19 Dose: 167 mls/hr Losartan Potassium (Cozaar) 50 mg PO DAILY [facility] Last Admin: 12/08/16 10:18 Dose: 50 mg Pantoprazole Sodium (Protonix Inj) 40 mg IVP DAILY [facility] Last Admin: 12/08/16 10:19 Dose: 40 mg Prednisone (Prednisone Tab) 40 mg PO DAILY [facility] Stop: 12/11/16 10:00 Last Admin: 12/08/16 10:18 Dose: 40 mg - Labs Labs: 12/08/16 05:50 12/08/16 05:50 PT 12.0 Seconds (9.9-11.8) H 12/07/16 17:05 INR 1.11 (0.93-1.08) H 12/07/16 17:05 APTT 33.6 Seconds (23.7-30.8) H 12/07/16 17:05 Attending/Attestation - Attestation I have personally seen and examined this patient.: Yes I have fully participated in the care of the patient.: Yes I have reviewed all pertinent clinical information, including history, physical exam and plan: Yes Notes (Text): 12/08/16 14:38 Patient was seen and examined with manager medical .Agreed with resident assessment and plan. 86 y male with history of COPD, hypertension, TIA, osteoarthritis with sepsis due to HCAP Pneumonia ,Patient is afebrile today, cultures are negative , still has leukocytosis, on Vancomycin/Cefepime and azithromycin as per ID. Lactic acid is still elevated, etiology uncleare, patient is afebrile, not toxic , no evidence of hypoperfusion, will monitor Borderline elevated troponin, had episode of chest pain yesterday, improved with SL NTG, will follow up Echo and cardiology consult. Management plan was discussed in detail with patient and family who was at bed side. Education was provided.
[2016-12-08] MEDS: Vancomycin 1gm in NS 250ml 1 GM/250 ML BAG IVPB SCH (13:57)
[2016-12-08] MEDS: Cefepime 1gm in NS 100ml 1 GM/100 ML BAG IVPB SCH ×2 (15:44→21:10)
--- NOTE | 2016-12-08 19:06 | CP.PCM.PN ---
Subjective - Date & Time of Evaluation Date of Evaluation: 12/08/16 Time of Evaluation: 18:00 - Subjective Subjective: Infectious Disease Follow Up: December 08, 2016 86 yo male with extensive past medical history presenting with progressive shortness of breath and worsening cough with production of yellow sputum. The patient was recently admitted to [facility] for COPD exacerbation and discharged with Levuin. Patient complains of subjective fevers, productive cough, and dyspnea. He states that he feels better today via banker mason. Objective - Vital Signs/Intake and Output Vital Signs (last 24 hours): Temp Pulse Resp BP Pulse Ox 98 F 109 H 18 155/79 H 96 12/08/16 17:56 12/08/16 17:56 12/08/16 17:56 12/08/16 17:56 12/08/16 06:00 Intake and Output: 12/08/16 12/09/16 18:59 06:59 Intake Total 700 Output Total 825 Balance -125 - Medications Medications: Current Medications Acetaminophen (Tylenol 325mg Tab) 650 mg PO Q4 PRN PRN Reason: Fever >100.4 F Albuterol/Ipratropium (Duoneb 3 Mg/0.5 Mg (3 Ml) Ud) 3 ml IH [id number] [facility] Last Admin: 12/08/16 15:38 Dose: 3 ml Albuterol/Ipratropium (Duoneb 3 Mg/0.5 Mg (3 Ml) Ud) 3 ml IH Q2H PRN PRN Reason: Shortness of Breath Arformoterol Tartrate (Brovana) 15 mcg IH [id number] [facility] Last Admin: 12/08/16 07:41 Dose: 15 mcg Aspirin (Aspirin Chewable) 81 mg PO DAILY [facility] Last Admin: 12/08/16 10:18 Dose: 81 mg Bisacodyl (Dulcolax) 5 mg PO BID PRN PRN Reason: Constipation Budesonide (Pulmicort Respules) 1 mg IH [id number] [facility] Last Admin: 12/08/16 07:41 Dose: 1 mg Enoxaparin Sodium (Lovenox) 40 mg SC DAILY [facility] PRN Reason: Protocol Last Admin: 12/08/16 10:18 Dose: 40 mg Guaifenesin (Mucinex La) 600 mg PO BID [facility] Last Admin: 12/08/16 17:24 Dose: 600 mg Vancomycin HCl (Vancomycin 1gm) 1 gm in 250 mls @ 167 mls/hr IVPB DAILY [facility] PRN Reason: Protocol Last Admin: 12/08/16 13:57 Dose: 167 mls/hr Cefepime HCl (Maxipime 1gm) 1 gm in 100 mls @ 100 mls/hr IVPB Q12 [facility] PRN Reason: Protocol Last Admin: 12/08/16 15:44 Dose: 100 mls/hr Azithromycin (Zithromax 500mg In Ns) 500 mg in 250 mls @ 167 mls/hr IVPB DAILY [facility] PRN Reason: Protocol Last Admin: 12/08/16 10:19 Dose: 167 mls/hr Losartan Potassium (Cozaar) 50 mg PO DAILY [facility] Last Admin: 12/08/16 10:18 Dose: 50 mg Pantoprazole Sodium (Protonix Inj) 40 mg IVP DAILY [facility] Last Admin: 12/08/16 10:19 Dose: 40 mg Prednisone (Prednisone Tab) 40 mg PO DAILY [facility] Stop: 12/11/16 10:00 Last Admin: 12/08/16 10:18 Dose: 40 mg - Labs Labs: 12/08/16 05:50 12/08/16 05:50 PT 12.0 Seconds (9.9-11.8) H 12/07/16 17:05 INR 1.11 (0.93-1.08) H 12/07/16 17:05 APTT 33.6 Seconds (23.7-30.8) H 12/07/16 17:05 - Constitutional Appears: Non-toxic, No Acute Distress, Chronically Ill - Head Exam Head Exam: ATRAUMATIC, NORMOCEPHALIC - Eye Exam Eye Exam: EOMI, PERRL Pupil Exam: NORMAL ACCOMODATION, PERRL - ENT Exam ENT Exam: Mucous Membranes Moist, Normal External Ear Exam, TM's Normal Bilaterally - Neck Exam Neck Exam: Full ROM, Normal Inspection - Respiratory Exam Respiratory Exam: Decreased Breath Sounds, Rales. absent: Rhonchi, Wheezes - Cardiovascular Exam Cardiovascular Exam: REGULAR RHYTHM, RRR, +S1, +S2 - GI/Abdominal Exam GI & Abdominal Exam: Soft, Normal Bowel Sounds. absent: Distended, Tenderness - Extremities Exam Extremities Exam: Full ROM, Normal Inspection - Neurological Exam Neurological Exam: Alert, Awake, CN II-XII Intact, Oriented x3 - Psychiatric Exam Psychiatric exam: Normal Affect, Normal Mood - Skin Skin Exam: Intact, Normal Color Assessment and Plan - Assessment and Plan (Free Text) Assessment: 86 yo male with productive cough, subjective fevers, and SOB found with leukocytosis and findings of left lower lobe pneumonia on the CT scan of the chest. The patient is awake and alert. He feels better since coming to the hospital. He was febrile to 101.5 F on admission. The patient has multiple medical issues including HTN and COPD. Started on Vancomycin and Cefepime for antibiotic coverage. Noted Meropenem started today. Cultures negative at 24 hours. Would continue on Cefepime for now with consideration of addition of Azithromycin or Levaquin. Sputum for culture. The patient may not need Vancomycin but would await sputum cultures. So far no sputum collected or sent for evaluation. Afebrile currently. On Vancomycin IV, Cefepime, and Azithromycin. Thank you for allowing me to participate in the care of this patient, we will follow with you.
--- NOTE | 2016-12-08 22:33 | CP.PCM.PN ---
Subjective - Date & Time of Evaluation Date of Evaluation: 12/08/16 Time of Evaluation: 17:00 - Subjective Subjective: Patient is an 86yo male with past medical history of COPD, dementia, hypertension, TIA, osteoarthritis that presented to [facility] accompanied by family who reported that he had been feeling short of breath associated with worsening productive cough with yellowish sputum. Per family, patient was recently admitted to [facility] for COPD exacerbation and was discharged on levaquin. He had been feeling okay shortly after discharge however thereafter began to feel subjective fevers, productive cough and dyspnea. today feels little better, decrease cough and SOB rapid responce was call today, presently fees ok Objective - Vital Signs/Intake and Output Vital Signs (last 24 hours): Temp Pulse Resp BP Pulse Ox 98 F 109 H 18 155/79 H 96 12/08/16 17:56 12/08/16 17:56 12/08/16 17:56 12/08/16 17:56 12/08/16 06:00 Intake and Output: 12/08/16 12/09/16 18:59 06:59 Intake Total 700 Output Total 825 Balance -125 - Medications Medications: Current Medications Acetaminophen (Tylenol 325mg Tab) 650 mg PO Q4 PRN PRN Reason: Fever >100.4 F Albuterol/Ipratropium (Duoneb 3 Mg/0.5 Mg (3 Ml) Ud) 3 ml IH [id number] [facility] Last Admin: 12/08/16 19:12 Dose: 3 ml Albuterol/Ipratropium (Duoneb 3 Mg/0.5 Mg (3 Ml) Ud) 3 ml IH Q2H PRN PRN Reason: Shortness of Breath Arformoterol Tartrate (Brovana) 15 mcg IH [id number] [facility] Last Admin: 12/08/16 19:12 Dose: 15 mcg Aspirin (Aspirin Chewable) 81 mg PO DAILY [facility] Last Admin: 12/08/16 10:18 Dose: 81 mg Bisacodyl (Dulcolax) 5 mg PO BID PRN PRN Reason: Constipation Budesonide (Pulmicort Respules) 1 mg IH [id number] [facility] Last Admin: 12/08/16 19:12 Dose: 1 mg Enoxaparin Sodium (Lovenox) 40 mg SC DAILY [facility] PRN Reason: Protocol Last Admin: 12/08/16 10:18 Dose: 40 mg Guaifenesin (Mucinex La) 600 mg PO BID [facility] Last Admin: 12/08/16 17:24 Dose: 600 mg Vancomycin HCl (Vancomycin 1gm) 1 gm in 250 mls @ 167 mls/hr IVPB DAILY [facility] PRN Reason: Protocol Last Admin: 12/08/16 13:57 Dose: 167 mls/hr Cefepime HCl (Maxipime 1gm) 1 gm in 100 mls @ 100 mls/hr IVPB Q12 [facility] PRN Reason: Protocol Last Admin: 12/08/16 21:10 Dose: 100 mls/hr Azithromycin (Zithromax 500mg In Ns) 500 mg in 250 mls @ 167 mls/hr IVPB DAILY [facility] PRN Reason: Protocol Last Admin: 12/08/16 10:19 Dose: 167 mls/hr Losartan Potassium (Cozaar) 50 mg PO DAILY [facility] Last Admin: 12/08/16 10:18 Dose: 50 mg Pantoprazole Sodium (Protonix Inj) 40 mg IVP DAILY [facility] Last Admin: 12/08/16 10:19 Dose: 40 mg Prednisone (Prednisone Tab) 40 mg PO DAILY [facility] Stop: 12/11/16 10:00 Last Admin: 12/08/16 10:18 Dose: 40 mg - Labs Labs: 12/08/16 05:50 12/08/16 05:50 PT 12.0 Seconds (9.9-11.8) H 12/07/16 17:05 INR 1.11 (0.93-1.08) H 12/07/16 17:05 APTT 33.6 Seconds (23.7-30.8) H 12/07/16 17:05 - Constitutional Appears: Well - Head Exam Head Exam: ATRAUMATIC, NORMAL INSPECTION, NORMOCEPHALIC - ENT Exam ENT Exam: Mucous Membranes Moist, Normal Exam - Respiratory Exam Respiratory Exam: Rales, Rhonchi - Cardiovascular Exam Cardiovascular Exam: REGULAR RHYTHM, +S1, +S2. absent: Murmur - GI/Abdominal Exam GI & Abdominal Exam: Soft, Normal Bowel Sounds. absent: Tenderness - Extremities Exam Extremities Exam: Full ROM, Normal Capillary Refill, Normal Inspection. absent : Joint Swelling, Pedal Edema - Neurological Exam Neurological Exam: Alert - Skin Skin Exam: Dry, Intact, Normal Color, Warm Assessment and Plan (1) Pneumonia Assessment & Plan: on atibiotics , aspiration precaution, follow up x ray, Status: Acute (2) COPD exacerbation Assessment & Plan: broncho dilators Status: Acute (3) Hypoxia Assessment & Plan: supplement oxygen Status: Acute - Assessment and Plan (Free Text) Plan: out of bed to chair, fall precaution,
[2016-12-09] MEDS: Albuterol-Ipratrop 3 mg / 0.5 (3 ml) UD IH SCH ×7 (00:15→23:23)
[2016-12-09] MEDS: Pantoprazole 40 mg EC Tab PO SCH (06:07)
[2016-12-09 07:40] LABS: BASO # 0.01 K/mm3 (0.0-2.0); BASO % 0.1 % (0.0-3.0); GRAN # 16.68 (1.4-6.5); GRAN % 85.7 % (50.0-68.0); LYMPH # 1.7 (1.2-3.4); LYMPH % 8.7 % (22.0-35.0); MEAN CELL VOLUME 82.4 fL (80.0-105.0); MEAN CORPUSCULAR HEMOGLOBIN 28.3 pg (25.0-35.0); MEAN CORPUSCULAR HGB CONC 34.3 g/dl (31.0-37.0); MEAN PLATELET VOLUME 10.2 fl (7.0-11.0); MONO # 1.1 (0.1-0.6); MONO % 5.5 % (1.0-6.0); PLATELET COUNT 156 10^3/uL (120.0-450.0); RED CELL DISTRIBUTION WIDTH 15.9 % (11.5-14.5); WHITE BLOOD COUNT 19.5 10^3/ul (4.5-11.0)
[2016-12-09 08:07] LABS: ALB/GLOB RATIO 1.2 (1.1-1.8); ALBUMIN 3.3 g/dL (3.0-4.8); ALT/SGPT 33 U/L (7-56); AST/SGOT 26 U/L (15-59); BLOOD UREA NITROGEN 13 mg/dL (7-21); CALCIUM 8.4 mg/dL (8.4-10.5); GFR AFRICAN-AMERICAN > 60; GFR NON-AFRICAN AMERICAN > 60
[2016-12-09] MEDS: Arformoterol 15 mcg/2 ml Inh Sol IH SCH ×2 (08:51→19:43)
[2016-12-09] MEDS: Enoxaparin 30 mg Syringe SC SCH (09:16)
[2016-12-09] MEDS: Cefepime 1gm in NS 100ml 1 GM/100 ML BAG IVPB SCH ×2 (09:16→21:46)
[2016-12-09] MEDS: guaiFENesin 600 mg ER Tab PO SCH ×2 (09:17→17:33)
[2016-12-09] MEDS: Vancomycin 1gm in NS 250ml 1 GM/250 ML BAG IVPB SCH (09:18)
[2016-12-09] MEDS: Azithromycin 500MG/NS 250ml 500 MG/250 ML BAG IVPB SCH (09:19)
[2016-12-09] MEDS ORDERED: Potassium Chloride 40 mEq/30 ml LIQ UD PO STA (10:31)
[2016-12-09] MEDS: Enoxaparin 40 mg Syringe SC SCH (10:51)
--- NOTE | 2016-12-09 12:48 | CP.PCM.PN ---
<Eamon Car - Last Filed: 12/09/16 12:42> Subjective - Date & Time of Evaluation Date of Evaluation: 12/09/16 Time of Evaluation: 09:30 - Subjective Subjective: Medicine progress note: Pt seen and examined at bedside. Denies any sob or cp. Still has a cough but it has improved. Denies any morales, dizziness, f/c, abd pain, n/v/d. Objective - Vital Signs/Intake and Output Vital Signs (last 24 hours): Temp Pulse Resp BP Pulse Ox 98 F 110 H 20 152/69 H 95 12/09/16 11:34 12/09/16 11:34 12/09/16 11:34 12/09/16 11:34 12/09/16 08:06 Intake and Output: 12/09/16 12/09/16 06:59 18:59 Intake Total 580 Output Total 1600 Balance -1020 - Medications Medications: Current Medications Acetaminophen (Tylenol 325mg Tab) 650 mg PO Q4 PRN PRN Reason: Fever >100.4 F Albuterol/Ipratropium (Duoneb 3 Mg/0.5 Mg (3 Ml) Ud) 3 ml IH [id number] [facility] Last Admin: 12/09/16 11:00 Dose: 3 ml Albuterol/Ipratropium (Duoneb 3 Mg/0.5 Mg (3 Ml) Ud) 3 ml IH Q2H PRN PRN Reason: Shortness of Breath Arformoterol Tartrate (Brovana) 15 mcg IH [id number] [facility] Last Admin: 12/09/16 08:51 Dose: Not Given Aspirin (Aspirin Chewable) 81 mg PO DAILY [facility] Last Admin: 12/09/16 09:15 Dose: 81 mg Bisacodyl (Dulcolax) 5 mg PO BID PRN PRN Reason: Constipation Budesonide (Pulmicort Respules) 1 mg IH [id number] [facility] Last Admin: 12/08/16 19:12 Dose: 1 mg Enoxaparin Sodium (Lovenox) 40 mg SC DAILY [facility] PRN Reason: Protocol Last Admin: 12/09/16 10:51 Dose: Not Given Guaifenesin (Mucinex La) 600 mg PO BID [facility] Last Admin: 12/09/16 09:17 Dose: 600 mg Hydralazine HCl (Apresoline) 10 mg IVP Q6H PRN PRN Reason: Systolic Blood Pressure Last Admin: 12/09/16 06:07 Dose: 10 mg Vancomycin HCl (Vancomycin 1gm) 1 gm in 250 mls @ 167 mls/hr IVPB DAILY [facility] PRN Reason: Protocol Last Admin: 12/09/16 09:18 Dose: 167 mls/hr Cefepime HCl (Maxipime 1gm) 1 gm in 100 mls @ 100 mls/hr IVPB Q12 [facility] PRN Reason: Protocol Last Admin: 12/09/16 09:16 Dose: 100 mls/hr Azithromycin (Zithromax 500mg In Ns) 500 mg in 250 mls @ 167 mls/hr IVPB DAILY [facility] PRN Reason: Protocol Last Admin: 12/09/16 09:19 Dose: 167 mls/hr Losartan Potassium (Cozaar) 50 mg PO DAILY [facility] Last Admin: 12/09/16 09:15 Dose: 50 mg Pantoprazole Sodium (Protonix Ec Tab) 40 mg PO 0600 [facility] Last Admin: 12/09/16 06:07 Dose: 40 mg Prednisone (Prednisone Tab) 20 mg PO DAILY [facility] Stop: 12/11/16 10:00 Last Admin: 12/09/16 09:17 Dose: 20 mg - Labs Labs: 12/09/16 06:30 12/09/16 06:30 PT 12.0 Seconds (9.9-11.8) H 12/07/16 17:05 INR 1.11 (0.93-1.08) H 12/07/16 17:05 APTT 33.6 Seconds (23.7-30.8) H 12/07/16 17:05 - Constitutional Appears: No Acute Distress - Head Exam Head Exam: ATRAUMATIC, NORMAL INSPECTION, NORMOCEPHALIC - Eye Exam Eye Exam: EOMI, Normal appearance, PERRL Pupil Exam: NORMAL ACCOMODATION, PERRL - ENT Exam ENT Exam: Mucous Membranes Moist, Normal Exam - Neck Exam Neck Exam: Full ROM, Normal Inspection. absent: Lymphadenopathy - Respiratory Exam Respiratory Exam: Clear to Ausculation Bilateral, NORMAL BREATHING PATTERN. absent: Rales, Rhonchi, Wheezes - Cardiovascular Exam Cardiovascular Exam: REGULAR RHYTHM, RRR, +S1, +S2. absent: Murmur - GI/Abdominal Exam GI & Abdominal Exam: Soft, Normal Bowel Sounds. absent: Distended, Tenderness - Extremities Exam Extremities Exam: Full ROM, Normal Capillary Refill, Normal Inspection. absent : Joint Swelling, Pedal Edema - Back Exam Back Exam: NORMAL INSPECTION - Neurological Exam Neurological Exam: Alert, Awake, CN II-XII Intact, Normal Gait, Oriented x3 - Psychiatric Exam Psychiatric exam: Normal Affect, Normal Mood - Skin Skin Exam: Dry, Intact, Normal Color, Warm Assessment and Plan - Assessment and Plan (Free Text) Assessment: 86yo male with history of COPD, hypertension, TIA, osteoarthritis presents with sepsis 2/2 L lower lobe pneumonia 1. Sepsis 2/2 L lower lobe pneumonia - Currently afebrile, wbc 26.6--> 19.5 - Latest Lactic Acid 3.6 - CXR - no active dx - Cont Vanc, cefepime, and azithromycin - CT chest w/o contrast - L lower lobe pneumonia -CXR reviewed - no active disease -EKG reviewed; sinus rhythm with PAC's, left axis deviation, incomplete RBBB, inferior infarct (age undetermined); compared to prior EKG's -Tylenol 650mg q4h PRN for fevers -Sepsis workup pending: Blood negative x 48hr, urine neg, sputum cultures; procalcitonin .05 -ID consulted - Dr. Mcdowell - cont vanc cefpime and azithro - Cardiology consulted and recommended to cont conservative management. Cont Asa , cozar, and lovenox 2. COPD -Continue duoneb q4h [facility]IE and q2n PRN -Prednisone 20 PO daily -O2 supplementation to keep SaO2 90-94 -Continue home inhaled Pulmicort and Brovana -Pulmonary consulted - Dr. Lynch - cont current management 3. Hypertension -Continue home losartan 4. GI/DVT ppx -Protonix & Lovenox Patient seen and case discussed in detail with Dr. Santos. <[facility]IA[facility] - Last Filed: 12/09/16 17:07> Objective - Vital Signs/Intake and Output Vital Signs (last 24 hours): Temp Pulse Resp BP Pulse Ox 98 F 110 H 20 152/69 H 95 12/09/16 11:34 12/09/16 14:00 12/09/16 11:34 12/09/16 11:34 12/09/16 08:06 Intake and Output: 12/09/16 12/09/16 06:59 18:59 Intake Total 580 360 Output Total 1600 600 Balance -1020 -240 - Medications Medications: Current Medications Acetaminophen (Tylenol 325mg Tab) 650 mg PO Q4 PRN PRN Reason: Fever >100.4 F Albuterol/Ipratropium (Duoneb 3 Mg/0.5 Mg (3 Ml) Ud) 3 ml IH [id number] [facility] Last Admin: 12/09/16 11:00 Dose: 3 ml Albuterol/Ipratropium (Duoneb 3 Mg/0.5 Mg (3 Ml) Ud) 3 ml IH Q2H PRN PRN Reason: Shortness of Breath Arformoterol Tartrate (Brovana) 15 mcg IH [id number] [facility] Last Admin: 12/09/16 08:51 Dose: Not Given Aspirin (Aspirin Chewable) 81 mg PO DAILY [facility] Last Admin: 12/09/16 09:15 Dose: 81 mg Bisacodyl (Dulcolax) 5 mg PO BID PRN PRN Reason: Constipation Budesonide (Pulmicort Respules) 1 mg IH [id number] [facility] Last Admin: 12/08/16 19:12 Dose: 1 mg Enoxaparin Sodium (Lovenox) 40 mg SC DAILY [facility] PRN Reason: Protocol Last Admin: 12/09/16 10:51 Dose: Not Given Guaifenesin (Mucinex La) 600 mg PO BID [facility] Last Admin: 12/09/16 09:17 Dose: 600 mg Hydralazine HCl (Apresoline) 10 mg IVP Q6H PRN PRN Reason: Systolic Blood Pressure Last Admin: 12/09/16 06:07 Dose: 10 mg Vancomycin HCl (Vancomycin 1gm) 1 gm in 250 mls @ 167 mls/hr IVPB DAILY [facility] PRN Reason: Protocol Last Admin: 12/09/16 09:18 Dose: 167 mls/hr Cefepime HCl (Maxipime 1gm) 1 gm in 100 mls @ 100 mls/hr IVPB Q12 [facility] PRN Reason: Protocol Last Admin: 12/09/16 09:16 Dose: 100 mls/hr Azithromycin (Zithromax 500mg In Ns) 500 mg in 250 mls @ 167 mls/hr IVPB DAILY [facility] PRN Reason: Protocol Last Admin: 12/09/16 09:19 Dose: 167 mls/hr Losartan Potassium (Cozaar) 50 mg PO DAILY [facility] Last Admin: 12/09/16 09:15 Dose: 50 mg Pantoprazole Sodium (Protonix Ec Tab) 40 mg PO 0600 [facility] Last Admin: 12/09/16 06:07 Dose: 40 mg Prednisone (Prednisone Tab) 20 mg PO DAILY [facility] - Labs Labs: 12/09/16 06:30 12/09/16 06:30 PT 12.0 Seconds (9.9-11.8) H 12/07/16 17:05 INR 1.11 (0.93-1.08) H 12/07/16 17:05 APTT 33.6 Seconds (23.7-30.8) H 12/07/16 17:05 Attending/Attestation - Attestation I have personally seen and examined this patient.: Yes I have fully participated in the care of the patient.: Yes I have reviewed all pertinent clinical information, including history, physical exam and plan: Yes Notes (Text): 12/09/16 17:04 Patient was seen and examined with medical affairs specialist . 86yo male with history of COPD, hypertension, TIA, osteoarthritis with sepsis due to HCAP Pneumonia.Patient is feeling better, WBC count is coming down.Cultures are negative. We will continue broad spectrum antibiotics as per ID Patient is not wheezing today, there is no sign of fluid overload. Echo is pending, we will follow up results. Management plan was discussed in detail with patient and family. Education was provided.
--- NOTE | 2016-12-09 16:00 | CP.PCM.PN ---
Subjective - Date & Time of Evaluation Date of Evaluation: 12/09/16 Time of Evaluation: 15:15 - Subjective Subjective: Infectious Disease Follow Up: December 09, 2016 86 yo male with extensive past medical history presenting with progressive shortness of breath and worsening cough with production of yellow sputum. The patient was recently admitted to [facility] for COPD exacerbation and discharged with Levaquin. Patient complains of subjective fevers, productive cough, and dyspnea. 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 He still has a cough. Objective - Vital Signs/Intake and Output Vital Signs (last 24 hours): Temp Pulse Resp BP Pulse Ox 98 F 110 H 20 152/69 H 95 12/09/16 11:34 12/09/16 14:00 12/09/16 11:34 12/09/16 11:34 12/09/16 08:06 Intake and Output: 12/09/16 12/09/16 06:59 18:59 Intake Total 580 360 Output Total 1600 600 Balance -1020 -240 - Medications Medications: Current Medications Acetaminophen (Tylenol 325mg Tab) 650 mg PO Q4 PRN PRN Reason: Fever >100.4 F Albuterol/Ipratropium (Duoneb 3 Mg/0.5 Mg (3 Ml) Ud) 3 ml IH [id number] [facility] Last Admin: 12/09/16 11:00 Dose: 3 ml Albuterol/Ipratropium (Duoneb 3 Mg/0.5 Mg (3 Ml) Ud) 3 ml IH Q2H PRN PRN Reason: Shortness of Breath Arformoterol Tartrate (Brovana) 15 mcg IH [id number] [facility] Last Admin: 12/09/16 08:51 Dose: Not Given Aspirin (Aspirin Chewable) 81 mg PO DAILY [facility] Last Admin: 12/09/16 09:15 Dose: 81 mg Bisacodyl (Dulcolax) 5 mg PO BID PRN PRN Reason: Constipation Budesonide (Pulmicort Respules) 1 mg IH [id number] [facility] Last Admin: 12/08/16 19:12 Dose: 1 mg Enoxaparin Sodium (Lovenox) 40 mg SC DAILY [facility] PRN Reason: Protocol Last Admin: 12/09/16 10:51 Dose: Not Given Guaifenesin (Mucinex La) 600 mg PO BID [facility] Last Admin: 12/09/16 09:17 Dose: 600 mg Hydralazine HCl (Apresoline) 10 mg IVP Q6H PRN PRN Reason: Systolic Blood Pressure Last Admin: 12/09/16 06:07 Dose: 10 mg Vancomycin HCl (Vancomycin 1gm) 1 gm in 250 mls @ 167 mls/hr IVPB DAILY [facility] PRN Reason: Protocol Last Admin: 12/09/16 09:18 Dose: 167 mls/hr Cefepime HCl (Maxipime 1gm) 1 gm in 100 mls @ 100 mls/hr IVPB Q12 [facility] PRN Reason: Protocol Last Admin: 12/09/16 09:16 Dose: 100 mls/hr Azithromycin (Zithromax 500mg In Ns) 500 mg in 250 mls @ 167 mls/hr IVPB DAILY [facility] PRN Reason: Protocol Last Admin: 12/09/16 09:19 Dose: 167 mls/hr Losartan Potassium (Cozaar) 50 mg PO DAILY [facility] Last Admin: 12/09/16 09:15 Dose: 50 mg Pantoprazole Sodium (Protonix Ec Tab) 40 mg PO 0600 [facility] Last Admin: 12/09/16 06:07 Dose: 40 mg Prednisone (Prednisone Tab) 20 mg PO DAILY [facility] Stop: 12/11/16 10:00 Last Admin: 12/09/16 09:17 Dose: 20 mg - Labs Labs: 12/09/16 06:30 12/09/16 06:30 PT 12.0 Seconds (9.9-11.8) H 12/07/16 17:05 INR 1.11 (0.93-1.08) H 12/07/16 17:05 APTT 33.6 Seconds (23.7-30.8) H 12/07/16 17:05 - Constitutional Appears: Non-toxic, No Acute Distress, Chronically Ill - Head Exam Head Exam: ATRAUMATIC, NORMOCEPHALIC - Eye Exam Eye Exam: EOMI, PERRL Pupil Exam: NORMAL ACCOMODATION, PERRL - ENT Exam ENT Exam: Mucous Membranes Moist, Normal External Ear Exam, TM's Normal Bilaterally - Neck Exam Neck Exam: Full ROM, Normal Inspection - Respiratory Exam Respiratory Exam: Decreased Breath Sounds, Rales. absent: Rhonchi, Wheezes - Cardiovascular Exam Cardiovascular Exam: REGULAR RHYTHM, RRR, +S1, +S2 - GI/Abdominal Exam GI & Abdominal Exam: Soft, Normal Bowel Sounds. absent: Distended, Tenderness - Extremities Exam Extremities Exam: Full ROM, Normal Inspection - Neurological Exam Neurological Exam: Alert, Awake, CN II-XII Intact, Oriented x3 - Psychiatric Exam Psychiatric exam: Normal Affect, Normal Mood - Skin Skin Exam: Intact, Normal Color Assessment and Plan - Assessment and Plan (Free Text) Assessment: 86 yo male with productive cough, subjective fevers, and SOB found with leukocytosis and findings of left lower lobe pneumonia on the CT scan of the chest. The patient is awake and alert. He feels better since coming to the hospital. He was febrile to 101.5 F on admission. The patient has multiple medical issues including HTN and COPD. Started on Vancomycin and Cefepime for antibiotic coverage. Noted Meropenem started today. Cultures negative at 24 hours. Would continue on Cefepime for now with consideration of addition of Azithromycin or Levaquin. Sputum for culture. The patient may not need Vancomycin but would await sputum cultures. Sputum collected and sent for evaluation. Afebrile currently. On Vancomycin IV, Cefepime, and Azithromycin. Cultures negative. Thank you for allowing me to participate in the care of this patient, we will follow with you.
--- NOTE | 2016-12-09 16:22 | CP.PCM.PN ---
Subjective - Date & Time of Evaluation Date of Evaluation: 12/09/16 Time of Evaluation: 16:17 - Subjective Subjective: no apparent distress Objective - Vital Signs/Intake and Output Vital Signs (last 24 hours): Temp Pulse Resp BP Pulse Ox 98 F 110 H 20 152/69 H 95 12/09/16 11:34 12/09/16 14:00 12/09/16 11:34 12/09/16 11:34 12/09/16 08:06 Intake and Output: 12/09/16 12/09/16 06:59 18:59 Intake Total 580 360 Output Total 1600 600 Balance -1020 -240 - Medications Medications: Current Medications Acetaminophen (Tylenol 325mg Tab) 650 mg PO Q4 PRN PRN Reason: Fever >100.4 F Albuterol/Ipratropium (Duoneb 3 Mg/0.5 Mg (3 Ml) Ud) 3 ml IH [id number] [facility] Last Admin: 12/09/16 11:00 Dose: 3 ml Albuterol/Ipratropium (Duoneb 3 Mg/0.5 Mg (3 Ml) Ud) 3 ml IH Q2H PRN PRN Reason: Shortness of Breath Arformoterol Tartrate (Brovana) 15 mcg IH [id number] [facility] Last Admin: 12/09/16 08:51 Dose: Not Given Aspirin (Aspirin Chewable) 81 mg PO DAILY [facility] Last Admin: 12/09/16 09:15 Dose: 81 mg Bisacodyl (Dulcolax) 5 mg PO BID PRN PRN Reason: Constipation Budesonide (Pulmicort Respules) 1 mg IH [id number] [facility] Last Admin: 12/08/16 19:12 Dose: 1 mg Enoxaparin Sodium (Lovenox) 40 mg SC DAILY [facility] PRN Reason: Protocol Last Admin: 12/09/16 10:51 Dose: Not Given Guaifenesin (Mucinex La) 600 mg PO BID [facility] Last Admin: 12/09/16 09:17 Dose: 600 mg Hydralazine HCl (Apresoline) 10 mg IVP Q6H PRN PRN Reason: Systolic Blood Pressure Last Admin: 12/09/16 06:07 Dose: 10 mg Vancomycin HCl (Vancomycin 1gm) 1 gm in 250 mls @ 167 mls/hr IVPB DAILY [facility] PRN Reason: Protocol Last Admin: 12/09/16 09:18 Dose: 167 mls/hr Cefepime HCl (Maxipime 1gm) 1 gm in 100 mls @ 100 mls/hr IVPB Q12 [facility] PRN Reason: Protocol Last Admin: 12/09/16 09:16 Dose: 100 mls/hr Azithromycin (Zithromax 500mg In Ns) 500 mg in 250 mls @ 167 mls/hr IVPB DAILY [facility] PRN Reason: Protocol Last Admin: 12/09/16 09:19 Dose: 167 mls/hr Losartan Potassium (Cozaar) 50 mg PO DAILY [facility] Last Admin: 12/09/16 09:15 Dose: 50 mg Pantoprazole Sodium (Protonix Ec Tab) 40 mg PO 0600 [facility] Last Admin: 12/09/16 06:07 Dose: 40 mg Prednisone (Prednisone Tab) 20 mg PO DAILY [facility] Stop: 12/11/16 10:00 Last Admin: 12/09/16 09:17 Dose: 20 mg - Labs Labs: 12/09/16 06:30 12/09/16 06:30 PT 12.0 Seconds (9.9-11.8) H 12/07/16 17:05 INR 1.11 (0.93-1.08) H 12/07/16 17:05 APTT 33.6 Seconds (23.7-30.8) H 12/07/16 17:05 - Constitutional Appears: No Acute Distress - Head Exam Head Exam: NORMAL INSPECTION - Eye Exam Eye Exam: Normal appearance - Neck Exam Neck Exam: Normal Inspection - Respiratory Exam Respiratory Exam: Rhonchi - Cardiovascular Exam Cardiovascular Exam: REGULAR RHYTHM - Extremities Exam Extremities Exam: Normal Inspection Assessment and Plan - Assessment and Plan (Free Text) Assessment: Chest pain Pneumonia Sepsis Dementia Osteoarthritis Plan: Cont. ASA, Cozar Lovenox Cont IV antibiotics I will F/u Echo
--- NOTE | 2016-12-09 16:48 | CP.PCM.PN ---
Subjective - Date & Time of Evaluation Date of Evaluation: 12/09/16 Time of Evaluation: 12:00 - Subjective Subjective: Patient is an 86yo male with past medical history of COPD, dementia, hypertension, TIA, osteoarthritis that presented to [facility] accompanied by family who reported that he had been feeling short of breath associated with worsening productive cough with yellowish sputum. Per family, now on antibiotics, feels better Objective - Vital Signs/Intake and Output Vital Signs (last 24 hours): Temp Pulse Resp BP Pulse Ox 98 F 110 H 20 152/69 H 95 12/09/16 11:34 12/09/16 14:00 12/09/16 11:34 12/09/16 11:34 12/09/16 08:06 Intake and Output: 12/09/16 12/09/16 06:59 18:59 Intake Total 580 360 Output Total 1600 600 Balance -1020 -240 - Medications Medications: Current Medications Acetaminophen (Tylenol 325mg Tab) 650 mg PO Q4 PRN PRN Reason: Fever >100.4 F Albuterol/Ipratropium (Duoneb 3 Mg/0.5 Mg (3 Ml) Ud) 3 ml IH [id number] [facility] Last Admin: 12/09/16 11:00 Dose: 3 ml Albuterol/Ipratropium (Duoneb 3 Mg/0.5 Mg (3 Ml) Ud) 3 ml IH Q2H PRN PRN Reason: Shortness of Breath Arformoterol Tartrate (Brovana) 15 mcg IH [id number] [facility] Last Admin: 12/09/16 08:51 Dose: Not Given Aspirin (Aspirin Chewable) 81 mg PO DAILY [facility] Last Admin: 12/09/16 09:15 Dose: 81 mg Bisacodyl (Dulcolax) 5 mg PO BID PRN PRN Reason: Constipation Budesonide (Pulmicort Respules) 1 mg IH [id number] [facility] Last Admin: 12/08/16 19:12 Dose: 1 mg Enoxaparin Sodium (Lovenox) 40 mg SC DAILY [facility] PRN Reason: Protocol Last Admin: 12/09/16 10:51 Dose: Not Given Guaifenesin (Mucinex La) 600 mg PO BID [facility] Last Admin: 12/09/16 09:17 Dose: 600 mg Hydralazine HCl (Apresoline) 10 mg IVP Q6H PRN PRN Reason: Systolic Blood Pressure Last Admin: 12/09/16 06:07 Dose: 10 mg Vancomycin HCl (Vancomycin 1gm) 1 gm in 250 mls @ 167 mls/hr IVPB DAILY [facility] PRN Reason: Protocol Last Admin: 12/09/16 09:18 Dose: 167 mls/hr Cefepime HCl (Maxipime 1gm) 1 gm in 100 mls @ 100 mls/hr IVPB Q12 [facility] PRN Reason: Protocol Last Admin: 12/09/16 09:16 Dose: 100 mls/hr Azithromycin (Zithromax 500mg In Ns) 500 mg in 250 mls @ 167 mls/hr IVPB DAILY [facility] PRN Reason: Protocol Last Admin: 12/09/16 09:19 Dose: 167 mls/hr Losartan Potassium (Cozaar) 50 mg PO DAILY [facility] Last Admin: 12/09/16 09:15 Dose: 50 mg Pantoprazole Sodium (Protonix Ec Tab) 40 mg PO 0600 [facility] Last Admin: 12/09/16 06:07 Dose: 40 mg Prednisone (Prednisone Tab) 20 mg PO DAILY [facility] Stop: 12/11/16 10:00 Last Admin: 12/09/16 09:17 Dose: 20 mg - Labs Labs: 12/09/16 06:30 12/09/16 06:30 PT 12.0 Seconds (9.9-11.8) H 12/07/16 17:05 INR 1.11 (0.93-1.08) H 12/07/16 17:05 APTT 33.6 Seconds (23.7-30.8) H 12/07/16 17:05 - Constitutional Appears: Well - Head Exam Head Exam: ATRAUMATIC, NORMAL INSPECTION, NORMOCEPHALIC - Eye Exam Eye Exam: EOMI, Normal appearance, PERRL Pupil Exam: NORMAL ACCOMODATION, PERRL - ENT Exam ENT Exam: Mucous Membranes Moist, Normal Exam - Neck Exam Neck Exam: Full ROM, Normal Inspection. absent: Lymphadenopathy - Respiratory Exam Respiratory Exam: Rales, Rhonchi - GI/Abdominal Exam GI & Abdominal Exam: Soft, Normal Bowel Sounds. absent: Tenderness - Extremities Exam Extremities Exam: Full ROM, Normal Capillary Refill, Normal Inspection. absent : Joint Swelling, Pedal Edema - Neurological Exam Neurological Exam: Alert, Awake, CN II-XII Intact, Normal Gait, Oriented x3 - Skin Skin Exam: Dry, Intact, Normal Color, Warm Assessment and Plan (1) Pneumonia Assessment & Plan: on antibiotic, aspiration precaution Status: Acute (2) COPD exacerbation Assessment & Plan: po and inhale broncho dilators, decrease prednison Status: Acute (3) Hypoxia Assessment & Plan: improve Status: Acute (4) Sleep apnea Assessment & Plan: may have fernanda, sleep study as out patient Status: Acute
[2016-12-09] MEDS: Budesonide 0.5 mg/2 ml Inhal Susp UD IH SCH (19:44)
[2016-12-10] MEDS: Albuterol-Ipratrop 3 mg / 0.5 (3 ml) UD IH SCH ×5 (04:17→19:53)
[2016-12-10] MEDS: Pantoprazole 40 mg EC Tab PO SCH (05:45)
[2016-12-10] MEDS: Budesonide 0.5 mg/2 ml Inhal Susp UD IH SCH ×2 (07:47→19:53)
[2016-12-10] MEDS: Arformoterol 15 mcg/2 ml Inh Sol IH SCH ×2 (07:48→19:53)
[2016-12-10 09:20] LABS: BASO # 0.01 K/mm3 (0.0-2.0); BASO % 0.1 % (0.0-3.0); EOS # 0.1 (0.0-0.7); EOS % 0.4 % (1.5-5.0); GRAN # 9.23 (1.4-6.5); GRAN % 76.1 % (50.0-68.0); HEMOGLOBIN 12.8 gm/dL (14.0-18.0); LYMPH # 2.1 (1.2-3.4); LYMPH % 17.5 % (22.0-35.0); MEAN CELL VOLUME 83.1 fL (80.0-105.0); MEAN CORPUSCULAR HEMOGLOBIN 28.8 pg (25.0-35.0); MEAN CORPUSCULAR HGB CONC 34.6 g/dl (31.0-37.0); MEAN PLATELET VOLUME 10.2 fl (7.0-11.0); MONO # 0.7 (0.1-0.6); MONO % 5.9 % (1.0-6.0); PLATELET COUNT 135 10^3/uL (120.0-450.0); RBC 4.45 10^6/uL (3.5-6.1); RED CELL DISTRIBUTION WIDTH 16.1 % (11.5-14.5); WHITE BLOOD COUNT 12.1 10^3/ul (4.5-11.0)
[2016-12-10 09:27] LABS: ALB/GLOB RATIO 1.1 (1.1-1.8); ALT/SGPT 30 U/L (7-56); AST/SGOT 21 U/L (15-59); BLOOD UREA NITROGEN 13 mg/dL (7-21); CALCIUM 8.3 mg/dL (8.4-10.5); GFR AFRICAN-AMERICAN > 60; GFR NON-AFRICAN AMERICAN > 60
[2016-12-10] MEDS: guaiFENesin 600 mg ER Tab PO SCH (10:12)
[2016-12-10] MEDS: Cefepime 1gm in NS 100ml 1 GM/100 ML BAG IVPB SCH ×2 (10:12→22:48)
[2016-12-10] MEDS: Vancomycin 1gm in NS 250ml 1 GM/250 ML BAG IVPB SCH (10:13)
[2016-12-10] MEDS: Azithromycin 500MG/NS 250ml 500 MG/250 ML BAG IVPB SCH (10:13)
[2016-12-10] MEDS: Enoxaparin 40 mg Syringe SC SCH (10:34)
--- NOTE | 2016-12-10 21:19 | CARD ---
APPROVED REPORT EXAM: Two-dimensional and M-mode echocardiogram with Doppler and color Doppler. INDICATION Congestive Heart Failure 2D DIMENSIONS Left Atrium (2D)4.9 (1.6-4.0cm)IVSd1.2 (0.7-1.1cm) LVDd4.3 (3.9-5.9cm)PWd1.0 (0.7-1.1cm) LVDs2.7 (2.5-4.0cm)FS (%) 37.1 % LVEF (%)67.4 (>50%) M-Mode DIMENSIONS Aortic Root2.40 (2.2-3.7cm)Aortic Cusp Exc.1.60 (1.5-2.0cm) Aortic Valve AoV Peak [id number]/Katharine Peak GR.8mmHg Mitral Valve E/A ratio0.0 TDI E/Lateral E'0.0E/Medial E'0.0 Tricuspid Valve TR Peak [id number] [id number] Peak Gr.35mmHg [id number] LEFT VENTRICLE The left ventricle is normal size. There is mild concentric left ventricular hypertrophy. The left ventricular function is normal.EF-60-65% There is normal LV segmental wall motion. Transmitral Doppler flow pattern is Grade III-reversible restrictive diastolic dysfunction. No left ventricle thrombus noted on this study. There is no ventricular septal defect visualized. There is no left ventricular aneurysm. There is no mass noted in the left ventricle. RIGHT VENTRICLE The right ventricle is normal size. There is normal right ventricular wall thickness. The right ventricular systolic function is normal. ATRIA The left atrium is mildly dilated. The right atrium size is normal. The interatrial septum is intact with no evidence for an atrial septal defect. AORTIC VALVE The aortic valve is thickened but opens well. There is trace to mild aortic regurgitation. There is no aortic valvular stenosis. There is no aortic valvular vegetation. MITRAL VALVE The mitral valve is thickened but opens well. Mitral regurgitation is mild to moderate. There is no mitral valve stenosis. There is no evidence of mitral valve prolapse. TRICUSPID VALVE The tricuspid valve leaflets are thickened , but open well. There is mild to moderate tricuspid regurgitation.RVSP-45 mmof Hg, There is no tricuspid valve stenosis. There is no tricuspid valve prolapse or vegetation. PULMONIC VALVE The pulmonic valve is not well visualized. GREAT VESSELS The aortic root is normal in size. The ascending aorta is normal in size. The pulmonary artery is normal. The IVC is normal in size and collapses >50% with inspiration. PERICARDIAL EFFUSION There is no pleural effusion. There is no pericardial effusion. <Conclusion> The left ventricle is normal size. There is mild concentric left ventricular hypertrophy. The left ventricular function is normal.EF-60-65% There is trace to mild aortic regurgitation. Mitral regurgitation is mild to moderate. There is mild to moderate tricuspid regurgitation.RVSP-45 mmof Hg, No PE, No Vegetation no thrombus noted
--- NOTE | 2016-12-10 21:44 | CP.PCM.PN ---
Subjective - Date & Time of Evaluation Date of Evaluation: 12/10/16 Time of Evaluation: 16:00 - Subjective Subjective: Infectious Disease Follow Up: December 10, 2016 86 yo male with extensive past medical history presenting with progressive shortness of breath and worsening cough with production of yellow sputum. The patient was recently admitted to [facility] COPD exacerbation and discharged with Levchristinauin. Patient complains of subjective fevers, productive cough, and dyspnea. 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 He still has a cough. Overall appears comfortable. Objective - Vital Signs/Intake and Output Vital Signs (last 24 hours): Temp Pulse Resp BP Pulse Ox 97.9 F 671 H 20 132/64 96 12/10/16 05:56 12/10/16 10:14 12/10/16 05:56 12/10/16 10:14 12/10/16 05:56 - Medications Medications: Current Medications Acetaminophen (Tylenol 325mg Tab) 650 mg PO Q4 PRN PRN Reason: Fever >100.4 F Albuterol/Ipratropium (Duoneb 3 Mg/0.5 Mg (3 Ml) Ud) 3 ml IH [id number] [facility] Last Admin: 12/10/16 19:53 Dose: 3 ml Albuterol/Ipratropium (Duoneb 3 Mg/0.5 Mg (3 Ml) Ud) 3 ml IH Q2H PRN PRN Reason: Shortness of Breath Arformoterol Tartrate (Brovana) 15 mcg IH [id number] [facility] Last Admin: 12/10/16 19:53 Dose: 15 mcg Aspirin (Aspirin Chewable) 81 mg PO DAILY [facility] Last Admin: 12/10/16 10:14 Dose: 81 mg Bisacodyl (Dulcolax) 5 mg PO BID PRN PRN Reason: Constipation Budesonide (Pulmicort Respules) 1 mg IH [id number] [facility] Last Admin: 12/10/16 19:53 Dose: 1 mg Donepezil HCl (Aricept) 10 mg PO HS [facility] Last Admin: 12/09/16 21:46 Dose: 10 mg Enoxaparin Sodium (Lovenox) 40 mg SC DAILY [facility] PRN Reason: Protocol Last Admin: 12/10/16 10:34 Dose: 40 mg Guaifenesin (Mucinex La) 600 mg PO BID [facility] Last Admin: 12/10/16 10:12 Dose: 600 mg Hydralazine HCl (Apresoline) 10 mg IVP Q6H PRN PRN Reason: Systolic Blood Pressure Last Admin: 12/09/16 06:07 Dose: 10 mg Vancomycin HCl (Vancomycin 1gm) 1 gm in 250 mls @ 167 mls/hr IVPB DAILY [facility] PRN Reason: Protocol Last Admin: 12/10/16 10:13 Dose: 167 mls/hr Cefepime HCl (Maxipime 1gm) 1 gm in 100 mls @ 100 mls/hr IVPB Q12 [facility] PRN Reason: Protocol Last Admin: 12/10/16 10:12 Dose: 100 mls/hr Azithromycin (Zithromax 500mg In Ns) 500 mg in 250 mls @ 167 mls/hr IVPB DAILY [facility] PRN Reason: Protocol Last Admin: 12/10/16 10:13 Dose: 167 mls/hr Losartan Potassium (Cozaar) 50 mg PO DAILY [facility] Last Admin: 12/10/16 10:14 Dose: 50 mg Pantoprazole Sodium (Protonix Ec Tab) 40 mg PO 0600 [facility] Last Admin: 12/10/16 05:45 Dose: 40 mg Prednisone (Prednisone Tab) 20 mg PO DAILY [facility] Last Admin: 12/10/16 10:14 Dose: 20 mg - Labs Labs: 12/10/16 09:10 12/10/16 09:10 PT 12.0 Seconds (9.9-11.8) H 12/07/16 17:05 INR 1.11 (0.93-1.08) H 12/07/16 17:05 APTT 33.6 Seconds (23.7-30.8) H 12/07/16 17:05 - Constitutional Appears: Non-toxic, No Acute Distress, Chronically Ill - Head Exam Head Exam: ATRAUMATIC, NORMOCEPHALIC - Eye Exam Eye Exam: EOMI, PERRL Pupil Exam: NORMAL ACCOMODATION, PERRL - ENT Exam ENT Exam: Mucous Membranes Moist, Normal External Ear Exam, TM's Normal Bilaterally - Neck Exam Neck Exam: Full ROM, Normal Inspection - Respiratory Exam Respiratory Exam: Decreased Breath Sounds, Rales, NORMAL BREATHING PATTERN. absent: Rhonchi, Wheezes - Cardiovascular Exam Cardiovascular Exam: REGULAR RHYTHM, RRR, +S1, +S2 - GI/Abdominal Exam GI & Abdominal Exam: Soft, Normal Bowel Sounds. absent: Distended, Tenderness - Extremities Exam Extremities Exam: Full ROM, Normal Inspection - Neurological Exam Neurological Exam: Alert, Awake, CN II-XII Intact, Oriented x3 - Psychiatric Exam Psychiatric exam: Normal Affect, Normal Mood - Skin Skin Exam: Intact, Normal Color Assessment and Plan - Assessment and Plan (Free Text) Assessment: 86 yo male with productive cough, subjective fevers, and SOB found with leukocytosis and findings of left lower lobe pneumonia on the CT scan of the chest. The patient is awake and alert. He feels better since coming to the hospital. He was febrile to 101.5 F on admission. The patient has multiple medical issues including HTN and COPD. Started on Vancomycin and Cefepime for antibiotic coverage. Noted Meropenem started today. Cultures negative at 24 hours. Would continue on Cefepime for now with consideration of addition of Azithromycin or Levaquin. Sputum for culture. The patient may not need Vancomycin but would await sputum cultures. Sputum collected and sent for evaluation. Afebrile currently. On Vancomycin IV, Cefepime, and Azithromycin. Cultures negative. Thank you for allowing me to participate in the care of this patient, we will follow with you.
--- NOTE | 2016-12-11 00:13 | CP.PCM.PN ---
Subjective - Date & Time of Evaluation Date of Evaluation: 12/10/16 Time of Evaluation: 14:00 - Subjective Subjective: Patient is an 86yo male with past medical history of COPD, dementia, hypertension, TIA, osteoarthritis that presented to [facility] accompanied by family who reported that he had been feeling short of breath associated with worsening productive cough with yellowish sputum. Per family, now on antibiotics, feels better, decrease cough Objective - Vital Signs/Intake and Output Vital Signs (last 24 hours): Temp Pulse Resp BP Pulse Ox 97.9 F 671 H 20 132/64 96 12/10/16 05:56 12/10/16 10:14 12/10/16 05:56 12/10/16 10:14 12/10/16 05:56 - Medications Medications: Current Medications Acetaminophen (Tylenol 325mg Tab) 650 mg PO Q4 PRN PRN Reason: Fever >100.4 F Albuterol/Ipratropium (Duoneb 3 Mg/0.5 Mg (3 Ml) Ud) 3 ml IH [id number] [facility] Last Admin: 12/10/16 19:53 Dose: 3 ml Albuterol/Ipratropium (Duoneb 3 Mg/0.5 Mg (3 Ml) Ud) 3 ml IH Q2H PRN PRN Reason: Shortness of Breath Arformoterol Tartrate (Brovana) 15 mcg IH [id number] [facility] Last Admin: 12/10/16 19:53 Dose: 15 mcg Aspirin (Aspirin Chewable) 81 mg PO DAILY [facility] Last Admin: 12/10/16 10:14 Dose: 81 mg Bisacodyl (Dulcolax) 5 mg PO BID PRN PRN Reason: Constipation Budesonide (Pulmicort Respules) 1 mg IH [id number] [facility] Last Admin: 12/10/16 19:53 Dose: 1 mg Donepezil HCl (Aricept) 10 mg PO HS [facility] Last Admin: 12/10/16 22:47 Dose: 10 mg Enoxaparin Sodium (Lovenox) 40 mg SC DAILY [facility] PRN Reason: Protocol Last Admin: 12/10/16 10:34 Dose: 40 mg Guaifenesin (Mucinex La) 600 mg PO BID [facility] Last Admin: 12/10/16 10:12 Dose: 600 mg Hydralazine HCl (Apresoline) 10 mg IVP Q6H PRN PRN Reason: Systolic Blood Pressure Last Admin: 12/09/16 06:07 Dose: 10 mg Vancomycin HCl (Vancomycin 1gm) 1 gm in 250 mls @ 167 mls/hr IVPB DAILY [facility] PRN Reason: Protocol Last Admin: 12/10/16 10:13 Dose: 167 mls/hr Cefepime HCl (Maxipime 1gm) 1 gm in 100 mls @ 100 mls/hr IVPB Q12 [facility] PRN Reason: Protocol Last Admin: 12/10/16 22:48 Dose: 100 mls/hr Azithromycin (Zithromax 500mg In Ns) 500 mg in 250 mls @ 167 mls/hr IVPB DAILY [facility] PRN Reason: Protocol Last Admin: 12/10/16 10:13 Dose: 167 mls/hr Losartan Potassium (Cozaar) 50 mg PO DAILY [facility] Last Admin: 12/10/16 10:14 Dose: 50 mg Pantoprazole Sodium (Protonix Ec Tab) 40 mg PO 0600 [facility] Last Admin: 12/10/16 05:45 Dose: 40 mg Prednisone (Prednisone Tab) 20 mg PO DAILY [facility] Last Admin: 12/10/16 10:14 Dose: 20 mg - Labs Labs: 12/10/16 09:10 12/10/16 09:10 PT 12.0 Seconds (9.9-11.8) H 12/07/16 17:05 INR 1.11 (0.93-1.08) H 12/07/16 17:05 APTT 33.6 Seconds (23.7-30.8) H 12/07/16 17:05 - Constitutional Appears: In Acute Distress - Head Exam Head Exam: ATRAUMATIC, NORMAL INSPECTION, NORMOCEPHALIC - ENT Exam ENT Exam: Mucous Membranes Moist, Normal Exam - Neck Exam Neck Exam: Full ROM, Normal Inspection. absent: Lymphadenopathy - Respiratory Exam Respiratory Exam: Rales, Rhonchi - Cardiovascular Exam Cardiovascular Exam: REGULAR RHYTHM, +S1, +S2. absent: Murmur - GI/Abdominal Exam GI & Abdominal Exam: Soft, Normal Bowel Sounds. absent: Tenderness - Extremities Exam Extremities Exam: Full ROM, Normal Capillary Refill, Normal Inspection. absent : Joint Swelling, Pedal Edema - Neurological Exam Neurological Exam: Alert, Awake, CN II-XII Intact, Normal Gait, Oriented x3 - Psychiatric Exam Psychiatric exam: Flat Affect Assessment and Plan (1) Pneumonia Assessment & Plan: continue antibiotics Status: Acute (2) COPD exacerbation Assessment & Plan: po and inhale broncho dilators Status: Acute (3) Hypoxia Assessment & Plan: spplement oxygen Status: Acute (4) Sleep apnea Assessment & Plan: encourage C PAP out patient sleep study Status: Acute
[2016-12-11] MEDS: Albuterol-Ipratrop 3 mg / 0.5 (3 ml) UD IH SCH ×6 (01:07→20:50)
[2016-12-11] MEDS: Pantoprazole 40 mg EC Tab PO SCH (05:17)
[2016-12-11] MEDS: Arformoterol 15 mcg/2 ml Inh Sol IH SCH ×2 (07:30→20:50)
[2016-12-11] MEDS: Budesonide 0.5 mg/2 ml Inhal Susp UD IH SCH ×2 (07:31→20:50)
[2016-12-11] MEDS: guaiFENesin 600 mg ER Tab PO SCH ×2 (09:15→17:21)
[2016-12-11] MEDS: Enoxaparin 40 mg Syringe SC SCH (09:17)
[2016-12-11] MEDS: Cefepime 1gm in NS 100ml 1 GM/100 ML BAG IVPB SCH ×2 (09:17→22:02)
[2016-12-11] MEDS: Vancomycin 1gm in NS 250ml 1 GM/250 ML BAG IVPB SCH (11:26)
--- NOTE | 2016-12-11 11:46 | CP.PCM.PN ---
<Checo Guajardo - Last Filed: 12/11/16 11:46> Subjective - Date & Time of Evaluation Date of Evaluation: 12/11/16 Time of Evaluation: 11:45 - Subjective Subjective: Medicine progress note. Attending : Tom Pt s/e at bedside. No acute distress. No events overnight. Pt feeling fine and breathing better. No fevers, chills, vomiting, diarrhea. Objective - Vital Signs/Intake and Output Vital Signs (last 24 hours): Temp Pulse Resp BP Pulse Ox 98.4 F 59 L 19 142/84 95 12/11/16 05:36 12/11/16 09:15 12/11/16 05:36 12/11/16 09:15 12/11/16 05:36 Intake and Output: 12/11/16 12/11/16 06:59 18:59 Intake Total 340 Balance 340 - Medications Medications: Current Medications Acetaminophen (Tylenol 325mg Tab) 650 mg PO Q4 PRN PRN Reason: Fever >100.4 F Albuterol/Ipratropium (Duoneb 3 Mg/0.5 Mg (3 Ml) Ud) 3 ml IH [id number] [facility] Last Admin: 12/11/16 11:32 Dose: 3 ml Albuterol/Ipratropium (Duoneb 3 Mg/0.5 Mg (3 Ml) Ud) 3 ml IH Q2H PRN PRN Reason: Shortness of Breath Arformoterol Tartrate (Brovana) 15 mcg IH [id number] [facility] Last Admin: 12/11/16 07:30 Dose: 15 mcg Aspirin (Aspirin Chewable) 81 mg PO DAILY [facility] Last Admin: 12/11/16 09:15 Dose: 81 mg Bisacodyl (Dulcolax) 5 mg PO BID PRN PRN Reason: Constipation Budesonide (Pulmicort Respules) 1 mg IH [id number] [facility] Last Admin: 12/11/16 07:31 Dose: 1 mg Donepezil HCl (Aricept) 10 mg PO HS [facility] Last Admin: 12/10/16 22:47 Dose: 10 mg Enoxaparin Sodium (Lovenox) 40 mg SC DAILY [facility] PRN Reason: Protocol Last Admin: 12/11/16 09:17 Dose: 40 mg Guaifenesin (Mucinex La) 600 mg PO BID [facility] Last Admin: 12/11/16 09:15 Dose: 600 mg Hydralazine HCl (Apresoline) 10 mg IVP Q6H PRN PRN Reason: Systolic Blood Pressure Last Admin: 12/09/16 06:07 Dose: 10 mg Vancomycin HCl (Vancomycin 1gm) 1 gm in 250 mls @ 167 mls/hr IVPB DAILY [facility] PRN Reason: Protocol Last Admin: 12/11/16 11:26 Dose: 167 mls/hr Cefepime HCl (Maxipime 1gm) 1 gm in 100 mls @ 100 mls/hr IVPB Q12 [facility] PRN Reason: Protocol Last Admin: 12/11/16 09:17 Dose: 100 mls/hr Azithromycin (Zithromax 500mg In Ns) 500 mg in 250 mls @ 167 mls/hr IVPB DAILY [facility] PRN Reason: Protocol Last Admin: 12/10/16 10:13 Dose: 167 mls/hr Losartan Potassium (Cozaar) 50 mg PO DAILY [facility] Last Admin: 12/11/16 09:15 Dose: 50 mg Pantoprazole Sodium (Protonix Ec Tab) 40 mg PO 0600 [facility] Last Admin: 12/11/16 05:17 Dose: 40 mg Prednisone (Prednisone Tab) 20 mg PO DAILY [facility] Last Admin: 12/11/16 09:15 Dose: 20 mg - Labs Labs: 12/10/16 09:10 12/10/16 09:10 PT 12.0 Seconds (9.9-11.8) H 12/07/16 17:05 INR 1.11 (0.93-1.08) H 12/07/16 17:05 APTT 33.6 Seconds (23.7-30.8) H 12/07/16 17:05 - Constitutional Appears: Non-toxic, No Acute Distress - Head Exam Head Exam: ATRAUMATIC, NORMAL INSPECTION, NORMOCEPHALIC - Eye Exam Eye Exam: EOMI - ENT Exam ENT Exam: Mucous Membranes Moist - Respiratory Exam Respiratory Exam: absent: Respiratory Distress - Cardiovascular Exam Cardiovascular Exam: +S1, +S2 - GI/Abdominal Exam GI & Abdominal Exam: Soft, Normal Bowel Sounds. absent: Tenderness - Extremities Exam Extremities Exam: Full ROM, Normal Inspection - Neurological Exam Neurological Exam: Alert, Awake, Oriented x3 - Psychiatric Exam Psychiatric exam: Normal Affect, Normal Mood - Skin Skin Exam: Dry, Intact, Normal Color, Warm Assessment and Plan - Assessment and Plan (Free Text) Assessment: This is an 86 yo male with history of COPD, hypertension, TIA, osteoarthritis presents with sepsis 2/2 L lower lobe pneumonia 1. Sepsis 2/2 L lower lobe pneumonia - Currently afebrile - Latest Lactic Acid 3.6 - CXR - no active dx - Cont Vanc, cefepime, and azithromycin - CT chest w/o contrast - L lower lobe pneumonia -CXR reviewed - no active disease -EKG reviewed; sinus rhythm with PAC's, left axis deviation, incomplete RBBB, inferior infarct (age undetermined); compared to prior EKG's -Tylenol 650mg q4h PRN for fevers -Sepsis workup pending: Blood negative , urine neg, sputum cultures; procalcitonin .05 -ID consulted - Dr. Mcdowell - cont vanc cefpime and azithro - Cardiology consulted and recommended to cont conservative management. Cont Asa , cozar, and lovenox 2. COPD -Continue duoneb q4h [facility]IE and q2n PRN -Prednisone 20 PO daily -O2 supplementation to keep SaO2 90-94 -Continue home inhaled Pulmicort and Brovana -Pulmonary consulted - Dr. Lynch - cont current management 3. Hypertension -Continue home losartan 4. GI/DVT ppx -Protonix & Lovenox Patient seen and case discussed in detail with Dr. Santos. <Tom PLASCENCIA,[facility] - Last Filed: 12/11/16 17:20> Objective - Vital Signs/Intake and Output Vital Signs (last 24 hours): Temp Pulse Resp BP Pulse Ox 98.1 F 66 18 164/68 H 100 12/11/16 16:07 12/11/16 16:07 12/11/16 16:07 12/11/16 16:07 12/11/16 16:07 Intake and Output: 12/11/16 12/11/16 06:59 18:59 Intake Total 340 0 Balance 340 0 - Medications Medications: Current Medications Acetaminophen (Tylenol 325mg Tab) 650 mg PO Q4 PRN PRN Reason: Fever >100.4 F Albuterol/Ipratropium (Duoneb 3 Mg/0.5 Mg (3 Ml) Ud) 3 ml IH [id number] [facility] Last Admin: 12/11/16 15:06 Dose: 3 ml Albuterol/Ipratropium (Duoneb 3 Mg/0.5 Mg (3 Ml) Ud) 3 ml IH Q2H PRN PRN Reason: Shortness of Breath Arformoterol Tartrate (Brovana) 15 mcg IH [id number] [facility] Last Admin: 12/11/16 07:30 Dose: 15 mcg Aspirin (Aspirin Chewable) 81 mg PO DAILY [facility] Last Admin: 12/11/16 09:15 Dose: 81 mg Bisacodyl (Dulcolax) 5 mg PO BID PRN PRN Reason: Constipation Budesonide (Pulmicort Respules) 1 mg IH [id number] [facility] Last Admin: 12/11/16 07:31 Dose: 1 mg Donepezil HCl (Aricept) 10 mg PO HS [facility] Last Admin: 12/10/16 22:47 Dose: 10 mg Enoxaparin Sodium (Lovenox) 40 mg SC DAILY [facility] PRN Reason: Protocol Last Admin: 12/11/16 09:17 Dose: 40 mg Guaifenesin (Mucinex La) 600 mg PO BID [facility] Last Admin: 12/11/16 09:15 Dose: 600 mg Hydralazine HCl (Apresoline) 10 mg IVP Q6H PRN PRN Reason: Systolic Blood Pressure Last Admin: 12/09/16 06:07 Dose: 10 mg Vancomycin HCl (Vancomycin 1gm) 1 gm in 250 mls @ 167 mls/hr IVPB DAILY [facility] PRN Reason: Protocol Last Admin: 12/11/16 11:26 Dose: 167 mls/hr Cefepime HCl (Maxipime 1gm) 1 gm in 100 mls @ 100 mls/hr IVPB Q12 [facility] PRN Reason: Protocol Last Admin: 12/11/16 09:17 Dose: 100 mls/hr Azithromycin (Zithromax 500mg In Ns) 500 mg in 250 mls @ 167 mls/hr IVPB DAILY [facility] PRN Reason: Protocol Last Admin: 12/11/16 11:55 Dose: 167 mls/hr Losartan Potassium (Cozaar) 50 mg PO DAILY [facility] Last Admin: 12/11/16 09:15 Dose: 50 mg Pantoprazole Sodium (Protonix Ec Tab) 40 mg PO 0600 [facility] Last Admin: 12/11/16 05:17 Dose: 40 mg Prednisone (Prednisone Tab) 20 mg PO DAILY [facility] Last Admin: 12/11/16 09:15 Dose: 20 mg - Labs Labs: 12/10/16 09:10 12/10/16 09:10 PT 12.0 Seconds (9.9-11.8) H 12/07/16 17:05 INR 1.11 (0.93-1.08) H 12/07/16 17:05 APTT 33.6 Seconds (23.7-30.8) H 12/07/16 17:05 Attending/Attestation - Attestation I have personally seen and examined this patient.: Yes I have fully participated in the care of the patient.: Yes I have reviewed all pertinent clinical information, including history, physical exam and plan: Yes Notes (Text): 12/11/16 17:19 Patient was seen and examined with medical nurse . 86yo male with history of COPD, hypertension, TIA, osteoarthritis with sepsis due to HCAP Pneumonia.Patient is feeling better, WBC count is coming down.Cultures are negative. Antibiotics can be changed to oral. Patient is not wheezing today, there is no sign of fluid overload. Echo shows diastolic dysfunction. Patient is not ambulatory, PT evaluation is pending. Disposition home vs [facility] depending on PT evaluation. We will wean off oxygen Management plan was discussed in detail with patient . Education was provided.
[2016-12-11] MEDS: Azithromycin 500MG/NS 250ml 500 MG/250 ML BAG IVPB SCH (11:55)
--- NOTE | 2016-12-11 18:11 | CP.PCM.PN ---
Subjective - Date & Time of Evaluation Date of Evaluation: 12/11/16 Time of Evaluation: 16:30 - Subjective Subjective: Infectious Disease Follow Up: December 11, 2016 86 yo male with extensive past medical history presenting with progressive shortness of breath and worsening cough with production of yellow sputum. The patient was recently admitted [place] [facility] [place] and discharged with Levaquin. Patient complains of subjective fevers, productive cough, and dyspnea. He states that he feels better today via pacu rn. He still has a cough. Overall appears comfortable and has improved. Objective - Vital Signs/Intake and Output Vital Signs (last 24 hours): Temp Pulse Resp BP Pulse Ox 98.1 F 66 18 164/68 H 100 12/11/16 16:07 12/11/16 16:07 12/11/16 16:07 12/11/16 16:07 12/11/16 16:07 Intake and Output: 12/11/16 12/11/16 06:59 18:59 Intake Total 340 0 Balance 340 0 - Medications Medications: Current Medications Acetaminophen (Tylenol 325mg Tab) 650 mg PO Q4 PRN PRN Reason: Fever >100.4 F Albuterol/Ipratropium (Duoneb 3 Mg/0.5 Mg (3 Ml) Ud) 3 ml IH [id number] [facility] Last Admin: 12/11/16 15:06 Dose: 3 ml Albuterol/Ipratropium (Duoneb 3 Mg/0.5 Mg (3 Ml) Ud) 3 ml IH Q2H PRN PRN Reason: Shortness of Breath Arformoterol Tartrate (Brovana) 15 mcg IH [id number] [facility] Last Admin: 12/11/16 07:30 Dose: 15 mcg Aspirin (Aspirin Chewable) 81 mg PO DAILY [facility] Last Admin: 12/11/16 09:15 Dose: 81 mg Bisacodyl (Dulcolax) 5 mg PO BID PRN PRN Reason: Constipation Budesonide (Pulmicort Respules) 1 mg IH [id number] [facility] Last Admin: 12/11/16 07:31 Dose: 1 mg Donepezil HCl (Aricept) 10 mg PO HS [facility] Last Admin: 12/10/16 22:47 Dose: 10 mg Enoxaparin Sodium (Lovenox) 40 mg SC DAILY [facility] PRN Reason: Protocol Last Admin: 12/11/16 09:17 Dose: 40 mg Guaifenesin (Mucinex La) 600 mg PO BID [facility] Last Admin: 12/11/16 17:21 Dose: 600 mg Hydralazine HCl (Apresoline) 10 mg IVP Q6H PRN PRN Reason: Systolic Blood Pressure Last Admin: 12/09/16 06:07 Dose: 10 mg Vancomycin HCl (Vancomycin 1gm) 1 gm in 250 mls @ 167 mls/hr IVPB DAILY [facility] PRN Reason: Protocol Last Admin: 12/11/16 11:26 Dose: 167 mls/hr Cefepime HCl (Maxipime 1gm) 1 gm in 100 mls @ 100 mls/hr IVPB Q12 [facility] PRN Reason: Protocol Last Admin: 12/11/16 09:17 Dose: 100 mls/hr Azithromycin (Zithromax 500mg In Ns) 500 mg in 250 mls @ 167 mls/hr IVPB DAILY [facility] PRN Reason: Protocol Last Admin: 12/11/16 11:55 Dose: 167 mls/hr Losartan Potassium (Cozaar) 50 mg PO DAILY [facility] Last Admin: 12/11/16 09:15 Dose: 50 mg Pantoprazole Sodium (Protonix Ec Tab) 40 mg PO 0600 [facility] Last Admin: 12/11/16 05:17 Dose: 40 mg Prednisone (Prednisone Tab) 20 mg PO DAILY [facility] Last Admin: 12/11/16 09:15 Dose: 20 mg - Labs Labs: 12/10/16 09:10 12/10/16 09:10 PT 12.0 Seconds (9.9-11.8) H 12/07/16 17:05 INR 1.11 (0.93-1.08) H 12/07/16 17:05 APTT 33.6 Seconds (23.7-30.8) H 12/07/16 17:05 - Constitutional Appears: Non-toxic, No Acute Distress, Chronically Ill - Head Exam Head Exam: ATRAUMATIC, NORMOCEPHALIC - Eye Exam Eye Exam: EOMI, PERRL Pupil Exam: NORMAL ACCOMODATION, PERRL - ENT Exam ENT Exam: Mucous Membranes Moist, Normal External Ear Exam, TM's Normal Bilaterally - Neck Exam Neck Exam: Full ROM, Normal Inspection - Respiratory Exam Respiratory Exam: Decreased Breath Sounds, NORMAL BREATHING PATTERN. absent: Rales, Rhonchi, Wheezes - Cardiovascular Exam Cardiovascular Exam: REGULAR RHYTHM, RRR, +S1, +S2 - GI/Abdominal Exam GI & Abdominal Exam: Soft, Normal Bowel Sounds. absent: Distended, Tenderness - Extremities Exam Extremities Exam: Full ROM, Normal Inspection - Neurological Exam Neurological Exam: Alert, Awake, CN II-XII Intact, Oriented x3 - Psychiatric Exam Psychiatric exam: Normal Affect, Normal Mood - Skin Skin Exam: Intact, Normal Color Assessment and Plan - Assessment and Plan (Free Text) Assessment: 86 yo male with productive cough, subjective fevers, and SOB found with leukocytosis and findings of left lower lobe pneumonia on the CT scan of the chest. The patient is awake and alert. He feels better since coming to the hospital. He was febrile to 101.5 F on admission. The patient has multiple medical issues including HTN and COPD. Started on Vancomycin and Cefepime for antibiotic coverage. Noted Meropenem started today. Cultures negative at 24 hours. Would continue on Cefepime for now with consideration of addition of Azithromycin or Levaquin. Sputum for culture. The patient may not need Vancomycin but would await sputum cultures. Sputum collected and sent for evaluation. Afebrile currently. On Vancomycin IV, Cefepime, and Azithromycin. Cultures negative. Overall, patient has improved. Thank you for allowing me to participate in the care of this patient, we will follow with you.
--- NOTE | 2016-12-11 23:05 | CP.PCM.PN ---
Subjective - Date & Time of Evaluation Date of Evaluation: 12/11/16 Time of Evaluation: 11:00 - Subjective Subjective: Patient is an 86yo male with past medical history of COPD, dementia, hypertension, TIA, osteoarthritis that presented to [facility] accompanied by family who reported that he had been feeling short of breath associated with worsening productive cough with yellowish sputum. Per family, now on antibiotics, feels better, decrease cough and SOB Objective - Vital Signs/Intake and Output Vital Signs (last 24 hours): Temp Pulse Resp BP Pulse Ox 98.1 F 66 18 164/68 H 100 12/11/16 16:07 12/11/16 16:07 12/11/16 16:07 12/11/16 16:07 12/11/16 16:07 Intake and Output: 12/11/16 12/12/16 18:59 06:59 Intake Total 0 540 Output Total 250 Balance 0 290 - Medications Medications: Current Medications Acetaminophen (Tylenol 325mg Tab) 650 mg PO Q4 PRN PRN Reason: Fever >100.4 F Albuterol/Ipratropium (Duoneb 3 Mg/0.5 Mg (3 Ml) Ud) 3 ml IH [id number] [facility] Last Admin: 12/11/16 20:50 Dose: 3 ml Albuterol/Ipratropium (Duoneb 3 Mg/0.5 Mg (3 Ml) Ud) 3 ml IH Q2H PRN PRN Reason: Shortness of Breath Arformoterol Tartrate (Brovana) 15 mcg IH [id number] [facility] Last Admin: 12/11/16 20:50 Dose: 15 mcg Aspirin (Aspirin Chewable) 81 mg PO DAILY [facility] Last Admin: 12/11/16 09:15 Dose: 81 mg Bisacodyl (Dulcolax) 5 mg PO BID PRN PRN Reason: Constipation Budesonide (Pulmicort Respules) 1 mg IH [id number] [facility] Last Admin: 12/11/16 20:50 Dose: 1 mg Donepezil HCl (Aricept) 10 mg PO HS [facility] Last Admin: 12/11/16 22:02 Dose: 10 mg Enoxaparin Sodium (Lovenox) 40 mg SC DAILY [facility] PRN Reason: Protocol Last Admin: 12/11/16 09:17 Dose: 40 mg Guaifenesin (Mucinex La) 600 mg PO BID [facility] Last Admin: 12/11/16 17:21 Dose: 600 mg Hydralazine HCl (Apresoline) 10 mg IVP Q6H PRN PRN Reason: Systolic Blood Pressure Last Admin: 12/09/16 06:07 Dose: 10 mg Vancomycin HCl (Vancomycin 1gm) 1 gm in 250 mls @ 167 mls/hr IVPB DAILY [facility] PRN Reason: Protocol Last Admin: 12/11/16 11:26 Dose: 167 mls/hr Cefepime HCl (Maxipime 1gm) 1 gm in 100 mls @ 100 mls/hr IVPB Q12 [facility] PRN Reason: Protocol Last Admin: 12/11/16 22:02 Dose: 100 mls/hr Azithromycin (Zithromax 500mg In Ns) 500 mg in 250 mls @ 167 mls/hr IVPB DAILY [facility] PRN Reason: Protocol Last Admin: 12/11/16 11:55 Dose: 167 mls/hr Losartan Potassium (Cozaar) 50 mg PO DAILY [facility] Last Admin: 12/11/16 09:15 Dose: 50 mg Pantoprazole Sodium (Protonix Ec Tab) 40 mg PO 0600 [facility] Last Admin: 12/11/16 05:17 Dose: 40 mg Prednisone (Prednisone Tab) 20 mg PO DAILY [facility] Last Admin: 12/11/16 09:15 Dose: 20 mg - Labs Labs: 12/10/16 09:10 12/10/16 09:10 PT 12.0 Seconds (9.9-11.8) H 12/07/16 17:05 INR 1.11 (0.93-1.08) H 12/07/16 17:05 APTT 33.6 Seconds (23.7-30.8) H 12/07/16 17:05 - Head Exam Head Exam: ATRAUMATIC, NORMAL INSPECTION, NORMOCEPHALIC - Neck Exam Neck Exam: Full ROM, Normal Inspection. absent: Lymphadenopathy - Respiratory Exam Respiratory Exam: Clear to Ausculation Bilateral, NORMAL BREATHING PATTERN - Cardiovascular Exam Cardiovascular Exam: REGULAR RHYTHM, +S1, +S2. absent: Murmur - GI/Abdominal Exam GI & Abdominal Exam: Soft, Normal Bowel Sounds. absent: Tenderness - Extremities Exam Extremities Exam: Full ROM, Normal Capillary Refill, Normal Inspection. absent : Joint Swelling, Pedal Edema - Neurological Exam Neurological Exam: Alert, Awake, CN II-XII Intact, Normal Gait, Oriented x3 Assessment and Plan (1) Pneumonia Assessment & Plan: on anti biotics, aspiration precaution Status: Acute (2) COPD exacerbation Assessment & Plan: po and inhale broncho dilators Status: Acute (3) Hypoxia Assessment & Plan: supplement oxygen Status: Acute (4) Sleep apnea Assessment & Plan: encourage c pap use , out patient sleep study Status: Acute
[2016-12-12] MEDS: Albuterol-Ipratrop 3 mg / 0.5 (3 ml) UD IH SCH ×5 (00:50→14:38)
[2016-12-12] MEDS: Pantoprazole 40 mg EC Tab PO SCH (06:30)
[2016-12-12 07:06] LABS: BASO # 0.02 K/mm3 (0.0-2.0); BASO % 0.1 % (0.0-3.0); EOS # 0.1 (0.0-0.7); EOS % 0.9 % (1.5-5.0); GRAN % 79.2 % (50.0-68.0); HEMOGLOBIN 12.2 gm/dL (14.0-18.0); LYMPH # 1.9 (1.2-3.4); LYMPH % 13.9 % (22.0-35.0); MEAN CELL VOLUME 84.5 fL (80.0-105.0); MEAN CORPUSCULAR HEMOGLOBIN 28.3 pg (25.0-35.0); MEAN CORPUSCULAR HGB CONC 33.5 g/dl (31.0-37.0); MEAN PLATELET VOLUME 11.5 fl (7.0-11.0); MONO # 0.8 (0.1-0.6); MONO % 5.9 % (1.0-6.0); PLATELET COUNT 191 10^3/uL (120.0-450.0); RBC 4.31 10^6/uL (3.5-6.1); RED CELL DISTRIBUTION WIDTH 16.2 % (11.5-14.5); WHITE BLOOD COUNT 13.8 10^3/ul (4.5-11.0)
[2016-12-12] MEDS: Budesonide 0.5 mg/2 ml Inhal Susp UD IH SCH (07:16)
[2016-12-12] MEDS: Arformoterol 15 mcg/2 ml Inh Sol IH SCH (07:16)
[2016-12-12 07:24] LABS: ALB/GLOB RATIO 1.1 (1.1-1.8); ALBUMIN 2.8 g/dL (3.0-4.8); ALT/SGPT 29 U/L (7-56); AST/SGOT 23 U/L (15-59); BLOOD UREA NITROGEN 12 mg/dL (7-21); CALCIUM 8.1 mg/dL (8.4-10.5); GFR AFRICAN-AMERICAN > 60; GFR NON-AFRICAN AMERICAN > 60; MAGNESIUM 1.9 mg/dL (1.7-2.2)
[2016-12-12 09:17] VITALS: O2SAT 96
[2016-12-12] MEDS: Enoxaparin 40 mg Syringe SC SCH (09:53)
[2016-12-12] MEDS: Cefepime 1gm in NS 100ml 1 GM/100 ML BAG IVPB SCH (09:54)
[2016-12-12] MEDS: guaiFENesin 600 mg ER Tab PO SCH (09:55)
[2016-12-12] MEDS: Azithromycin 500MG/NS 250ml 500 MG/250 ML BAG IVPB SCH (11:16)
[2016-12-12] MEDS: Vancomycin 1gm in NS 250ml 1 GM/250 ML BAG IVPB SCH (12:57)
--- NOTE | 2016-12-12 14:06 | RAD ---
HISTORY: pulm edema COMPARISON: 12/08/2016 FINDINGS: LUNGS: Minimal right basilar interstitial infiltrate. PLEURA: No significant pleural effusion identified, no pneumothorax apparent. CARDIOVASCULAR: Normal. OSSEOUS STRUCTURES: No significant abnormalities. VISUALIZED UPPER ABDOMEN: Normal. OTHER FINDINGS: None. IMPRESSION: Minimal right basilar interstitial infiltrate.
[2016-12-12 16:31] VITALS: BP 160/79; PULSE 74; RESP 18; TEMP 98
--- NOTE | 2016-12-12 16:34 | CP.PCM.DIS ---
<Yoanna Bruce - Last Filed: 12/12/16 17:21> Provider - Provider Date of Admission: 12/06/16 18:13 Attending physician: Dl Santos MD Primary care physician: Cody Aguilar MD Consults: TRACIE - Dr. Jeremias Becker - Dr. Lynch Time Spent in preparation of Discharge (in minutes): 35 Hospital Course - Lab Results Lab Results: Micro Results 12/08/16 23:20 Sputum Gram Stain - Final 12/08/16 23:20 Sputum Sputum Culture - Final NORMAL ORAL STEPHANIE Most Recent Lab Values WBC 13.8 10^3/ul (4.5-11.0) H 12/12/16 06:35 RBC 4.31 10^6/uL (3.5-6.1) 12/12/16 06:35 Hgb 12.2 gm/dL (14.0-18.0) L 12/12/16 06:35 Hct 36.4 % (42.0-52.0) L 12/12/16 06:35 MCV 84.5 fL (80.0-105.0) 12/12/16 06:35 MCH 28.3 pg (25.0-35.0) 12/12/16 06:35 MCHC 33.5 g/dl (31.0-37.0) 12/12/16 06:35 RDW 16.2 % (11.5-14.5) H 12/12/16 06:35 Plt Count 191 10^3/uL (120.0-450.0) 12/12/16 06:35 MPV 11.5 fl (7.0-11.0) H 12/12/16 06:35 Gran % 79.2 % (50.0-68.0) H 12/12/16 06:35 Lymph % (Auto) 13.9 % (22.0-35.0) L 12/12/16 06:35 Levy % (Auto) 5.9 % (1.0-6.0) 12/12/16 06:35 Eos % (Auto) 0.9 % (1.5-5.0) L 12/12/16 06:35 Baso % (Auto) 0.1 % (0.0-3.0) 12/12/16 06:35 Gran # 10.90 (1.4-6.5) H 12/12/16 06:35 Lymph # 1.9 (1.2-3.4) 12/12/16 06:35 Levy # 0.8 (0.1-0.6) H 12/12/16 06:35 Eos # 0.1 (0.0-0.7) 12/12/16 06:35 Baso # 0.02 K/mm3 (0.0-2.0) 12/12/16 06:35 PT 12.0 Seconds (9.9-11.8) H 12/07/16 17:05 INR 1.11 (0.93-1.08) H 12/07/16 17:05 APTT 33.6 Seconds (23.7-30.8) H 12/07/16 17:05 pO2 45 mm/Hg (30-55) 12/07/16 17:05 VBG pH 7.37 (7.32-7.43) 12/07/16 17:05 VBG pCO2 40.0 (40-60) 12/07/16 17:05 VBG HCO3 23.1 mmol/l (21-28) 12/07/16 17:05 VBG Total CO2 24.3 mmol.L (22-28) 12/07/16 17:05 VBG O2 Sat (Calc) 85.8 % (40-65) H 12/07/16 17:05 VBG Base Excess -2.0 mmol/L (0.0-2.0) L 12/07/16 17:05 VBG Potassium 3.9 mmol/L (3.6-5.2) 12/07/16 17:05 Sodium 139.0 mmol/L (132-148) 12/07/16 17:05 Chloride 106.0 mmol/L (98-107) 12/07/16 17:05 Glucose 152 mg/dl (75-110) H 12/07/16 17:05 Lactate 3.6 mmol/L (0.7-2.1) H 12/07/16 17:05 FiO2 21.0 % 12/07/16 17:05 Sodium 139 mmol/L (132-148) 12/12/16 06:35 Potassium 3.7 mmol/L (3.6-5.0) 12/12/16 06:35 Chloride 107 mmol/L (98-107) 12/12/16 06:35 Carbon Dioxide 27 mmol/L (21-33) 12/12/16 06:35 Anion Gap 9 (10-20) L 12/12/16 06:35 BUN 12 mg/dL (7-21) 12/12/16 06:35 Creatinine 0.8 mg/dL (0.5-1.4) 12/12/16 06:35 Est GFR ( Amer) > 60 12/12/16 06:35 Est GFR (Non-Af Amer) > 60 12/12/16 06:35 POC Glucose (mg/dL) 147 mg/dL (65-110) H 12/07/16 16:45 Random Glucose 92 mg/dL (70-110) 12/12/16 06:35 Lactic Acid 3.6 mmol/L (0.7-2.1) H 12/07/16 17:05 Calcium 8.1 mg/dL (8.4-10.5) L 12/12/16 06:35 Phosphorus 2.9 mg/dL (2.5-4.5) 12/12/16 06:35 Magnesium 1.9 mg/dL (1.7-2.2) 12/12/16 06:35 Total Bilirubin 0.7 mg/dL (0.2-1.3) 12/12/16 06:35 AST 23 U/L (15-59) 12/12/16 06:35 ALT 29 U/L (7-56) 12/12/16 06:35 Alkaline Phosphatase 73 U/L (38-133) 12/12/16 06:35 Lactate Dehydrogenase 529 U/L (333-699) 12/08/16 05:50 Total Creatine Kinase 38 U/L (35-230) 12/08/16 05:50 Troponin I 0.06 ng/mL 12/08/16 05:50 NT-Pro-B Natriuret Pep 509 pg/mL (0-450) H 12/06/16 16:45 Total Protein 5.3 g/dL (5.8-8.3) L 12/12/16 06:35 Albumin 2.8 g/dL (3.0-4.8) L 12/12/16 06:35 Globulin 2.5 gm/dL 12/12/16 06:35 Albumin/Globulin Ratio 1.1 (1.1-1.8) 12/12/16 06:35 Procalcitonin 0.05 NG/ML (0.19-0.49) L 12/06/16 16:45 Venous Blood Potassium 3.9 mmol/L (3.6-5.2) 12/07/16 17:05 Urine Color Yellow (YELLOW) 12/06/16 16:30 Urine Appearance Clear (CLEAR) 12/06/16 16:30 Urine pH 5.5 (4.7-8.0) 12/06/16 16:30 Ur Specific Bra[place]waite 1.020 (1.005-1.035) 12/06/16 16:30 Urine Protein Negative mg/dL (<30 mg/dL) 12/06/16 16:30 Urine Glucose (UA) Negative mg/dL (NEGATIVE) 12/06/16 16:30 Urine Ketones Negative mg/dL (NEGATIVE) 12/06/16 16:30 Urine Blood Negative (NEGATIVE) 12/06/16 16:30 Urine Nitrate Negative (NEGATIVE) 12/06/16 16:30 Urine Bilirubin Negative (NEGATIVE) 12/06/16 16:30 Urine Urobilinogen 0.2 E.U./dL (<1 E.U./dL) 12/06/16 16:30 Ur Leukocyte Esterase Moderate Cheyanne/uL (NEGATIVE) H 12/06/16 16:30 Urine RBC 0 - 2 /hpf (0-2) 12/06/16 16:30 Urine WBC 10 - 15 /hpf (0-6) 12/06/16 16:30 Ur Epithelial Cells 0 - 2 /hpf (0-5) 12/06/16 16:30 Urine Bacteria Few (NEG) 12/06/16 16:30 - Hospital Course Hospital Course: CC: SOB Patient is a 86 year old male with a PMH of COPD, TIA, HTN, and OA. She presented to the ED complaining of SOB and productive yellow sputum cough. The patient was recently at [facility] for COPD ex and dishcharged with Levaquin. ID and Pulm were consulted on the case. CXR showed no apparent consolidation. EKG showed DOUBLE CUTTER, left axis deviation, incomplete RBBB, inferior infarct (age undetermined) compared to prior EKG. Echo showed 67% EF. Patient was treated for Sepsis 2/2 to Pneumonia (Leukocytosis and LA of 4.6) with Antibiotics, and COPD w/ duoneb, solomedrol, and and 02 supplementation; along with his home medications of pulmicort and brovana. Patient SOB and cough have improved; along with his leukocytosis. Antibiotics have been changed to PO. Home medications discussed with patient and agreed to. Discharge Exam - Head Exam Head Exam: ATRAUMATIC, NORMAL INSPECTION, NORMOCEPHALIC - Eye Exam Eye Exam: EOMI - ENT Exam ENT Exam: Mucous Membranes Moist - Respiratory Exam Respiratory Exam: Rhonchi - Cardiovascular Exam Cardiovascular Exam: RRR, +S1, +S2 - GI/Abdominal Exam GI & Abdominal Exam: Normal Bowel Sounds - Skin Skin Exam: Dry, Intact, Normal Color Discharge Plan - Discharge Medications Prescriptions: Amoxicillin/Clavulanate [Augmentin 875 MG-125 MG] 1 tab PO BID #14 tab Donepezil [Aricept] 10 mg PO HS #30 tab Furosemide [Lasix] 20 mg PO DAILY #3 tab Potassium Chloride [K-Dur 20] 20 meq PO DAILY #3 tab predniSONE [predniSONE Tab] See Taper PO DAILY #6 tab - Follow Up Plan Condition: FAIR Disposition: HOME/ ROUTINE Instructions: Heart Healthy Diet (DC), COPD (Chronic Obstructive Pulmonary Disease) (DC), Sepsis (GEN), Chronic Hypertension (DC), Pneumonia (DC) Additional Instructions: 1. Follow up with PMD, Dr. Aguilar in 1 week. 2. Take Lasix 20mg and K-dur 20meq in AM for 3 days. 3. Finish antibiotic course: Augmentin 1 tab twice daily x 7 days. 4. Finish prednisone course: Prednisone 20mg x 2 days, then 10mg x 2 days then stop. Referrals: Cody Aguilar MD [Primary Care Provider] - <Tom PLASCENCIA,Dl - Last Filed: 12/12/16 17:33> Provider - Provider Date of Admission: 12/06/16 18:13 Attending physician: Dl Santos MD Primary care physician: Cody Aguilar MD Hospital Course - Lab Results Lab Results: Micro Results 12/08/16 23:20 Sputum Gram Stain - Final 12/08/16 23:20 Sputum Sputum Culture - Final NORMAL ORAL STEPHANIE Most Recent Lab Values WBC 13.8 10^3/ul (4.5-11.0) H 12/12/16 06:35 RBC 4.31 10^6/uL (3.5-6.1) 12/12/16 06:35 Hgb 12.2 gm/dL (14.0-18.0) L 12/12/16 06:35 Hct 36.4 % (42.0-52.0) L 12/12/16 06:35 MCV 84.5 fL (80.0-105.0) 12/12/16 06:35 MCH 28.3 pg (25.0-35.0) 12/12/16 06:35 MCHC 33.5 g/dl (31.0-37.0) 12/12/16 06:35 RDW 16.2 % (11.5-14.5) H 12/12/16 06:35 Plt Count 191 10^3/uL (120.0-450.0) 12/12/16 06:35 MPV 11.5 fl (7.0-11.0) H 12/12/16 06:35 Gran % 79.2 % (50.0-68.0) H 12/12/16 06:35 Lymph % (Auto) 13.9 % (22.0-35.0) L 12/12/16 06:35 Levy % (Auto) 5.9 % (1.0-6.0) 12/12/16 06:35 Eos % (Auto) 0.9 % (1.5-5.0) L 12/12/16 06:35 Baso % (Auto) 0.1 % (0.0-3.0) 12/12/16 06:35 Gran # 10.90 (1.4-6.5) H 12/12/16 06:35 Lymph # 1.9 (1.2-3.4) 12/12/16 06:35 Levy # 0.8 (0.1-0.6) H 12/12/16 06:35 Eos # 0.1 (0.0-0.7) 12/12/16 06:35 Baso # 0.02 K/mm3 (0.0-2.0) 12/12/16 06:35 PT 12.0 Seconds (9.9-11.8) H 12/07/16 17:05 INR 1.11 (0.93-1.08) H 12/07/16 17:05 APTT 33.6 Seconds (23.7-30.8) H 12/07/16 17:05 pO2 45 mm/Hg (30-55) 12/07/16 17:05 VBG pH 7.37 (7.32-7.43) 12/07/16 17:05 VBG pCO2 40.0 (40-60) 12/07/16 17:05 VBG HCO3 23.1 mmol/l (21-28) 12/07/16 17:05 VBG Total CO2 24.3 mmol.L (22-28) 12/07/16 17:05 VBG O2 Sat (Calc) 85.8 % (40-65) H 12/07/16 17:05 VBG Base Excess -2.0 mmol/L (0.0-2.0) L 12/07/16 17:05 VBG Potassium 3.9 mmol/L (3.6-5.2) 12/07/16 17:05 Sodium 139.0 mmol/L (132-148) 12/07/16 17:05 Chloride 106.0 mmol/L (98-107) 12/07/16 17:05 Glucose 152 mg/dl (75-110) H 12/07/16 17:05 Lactate 3.6 mmol/L (0.7-2.1) H 12/07/16 17:05 FiO2 21.0 % 12/07/16 17:05 Sodium 139 mmol/L (132-148) 12/12/16 06:35 Potassium 3.7 mmol/L (3.6-5.0) 12/12/16 06:35 Chloride 107 mmol/L (98-107) 12/12/16 06:35 Carbon Dioxide 27 mmol/L (21-33) 12/12/16 06:35 Anion Gap 9 (10-20) L 12/12/16 06:35 BUN 12 mg/dL (7-21) 12/12/16 06:35 Creatinine 0.8 mg/dL (0.5-1.4) 12/12/16 06:35 Est GFR ( Amer) > 60 12/12/16 06:35 Est GFR (Non-Af Amer) > 60 12/12/16 06:35 POC Glucose (mg/dL) 147 mg/dL (65-110) H 12/07/16 16:45 Random Glucose 92 mg/dL (70-110) 12/12/16 06:35 Lactic Acid 3.6 mmol/L (0.7-2.1) H 12/07/16 17:05 Calcium 8.1 mg/dL (8.4-10.5) L 12/12/16 06:35 Phosphorus 2.9 mg/dL (2.5-4.5) 12/12/16 06:35 Magnesium 1.9 mg/dL (1.7-2.2) 12/12/16 06:35 Total Bilirubin 0.7 mg/dL (0.2-1.3) 12/12/16 06:35 AST 23 U/L (15-59) 12/12/16 06:35 ALT 29 U/L (7-56) 12/12/16 06:35 Alkaline Phosphatase 73 U/L (38-133) 12/12/16 06:35 Lactate Dehydrogenase 529 U/L (333-699) 12/08/16 05:50 Total Creatine Kinase 38 U/L (35-230) 12/08/16 05:50 Troponin I 0.06 ng/mL 12/08/16 05:50 NT-Pro-B Natriuret Pep 509 pg/mL (0-450) H 12/06/16 16:45 Total Protein 5.3 g/dL (5.8-8.3) L 12/12/16 06:35 Albumin 2.8 g/dL (3.0-4.8) L 12/12/16 06:35 Globulin 2.5 gm/dL 12/12/16 06:35 Albumin/Globulin Ratio 1.1 (1.1-1.8) 12/12/16 06:35 Procalcitonin 0.05 NG/ML (0.19-0.49) L 12/06/16 16:45 Venous Blood Potassium 3.9 mmol/L (3.6-5.2) 12/07/16 17:05 Urine Color Yellow (YELLOW) 12/06/16 16:30 Urine Appearance Clear (CLEAR) 12/06/16 16:30 Urine pH 5.5 (4.7-8.0) 12/06/16 16:30 Ur Specific Bra[place]wa[place] 1.020 (1.005-1.035) 12/06/16 16:30 Urine Protein Negative mg/dL (<30 mg/dL) 12/06/16 16:30 Urine Glucose (UA) Negative mg/dL (NEGATIVE) 12/06/16 16:30 Urine Ketones Negative mg/dL (NEGATIVE) 12/06/16 16:30 Urine Blood Negative (NEGATIVE) 12/06/16 16:30 Urine Nitrate Negative (NEGATIVE) 12/06/16 16:30 Urine Bilirubin Negative (NEGATIVE) 12/06/16 16:30 Urine Urobilinogen 0.2 E.U./dL (<1 E.U./dL) 12/06/16 16:30 Ur Leukocyte Esterase Moderate Cheyanne/uL (NEGATIVE) H 12/06/16 16:30 Urine RBC 0 - 2 /hpf (0-2) 12/06/16 16:30 Urine WBC 10 - 15 /hpf (0-6) 12/06/16 16:30 Ur Epithelial Cells 0 - 2 /hpf (0-5) 12/06/16 16:30 Urine Bacteria Few (NEG) 12/06/16 16:30 Attending/Attestation - Attestation I have personally seen and examined this patient.: Yes I have fully participated in the care of the patient.: Yes I have reviewed all pertinent clinical information, including history, physical exam and plan: Yes Notes (Text): 12/12/16 17:30 Patient was seen and examined with medical claims manager . 86yo male with history of COPD, hypertension, TIA, osteoarthritis with sepsis due to HCAP Pneumonia.Patient is feeling better, WBC count is coming down.Cultures are negative. Antibiotics can be changed to oral.Patient is not wheezing today, there is no sign of fluid overload. Echo shows diastolic dysfunction.Patient is not ambulatory, Patient is weaned of oxygen,He does has some some fine basal crackle, will start him on low dose of lasix, his antibiotics will be switched to oral Augmentin.He will be discharged home with home services and will follow up with . Management plan was discussed in detail with patient . Education was provided.
--- NOTE | 2016-12-12 17:45 | CP.PCM.PN ---
Subjective - Date & Time of Evaluation Date of Evaluation: 12/12/16 Time of Evaluation: 16:45 - Subjective Subjective: Infectious Disease Follow Up: December 12, 2016 86 yo male with extensive past medical history presenting with progressive shortness of breath and worsening cough with production of yellow sputum. The patient was recently admitted to [facility] for COPD exacerbation and discharged with Levaquin. Patient complains of subjective fevers, productive cough, and dyspnea. He states that he feels better today via [employer]. He still has a cough. Overall appears comfortable and has improved. Objective - Vital Signs/Intake and Output Vital Signs (last 24 hours): Temp Pulse Resp BP Pulse Ox 98.0 F 74 18 160/79 H 96 12/12/16 16:00 12/12/16 16:00 12/12/16 16:00 12/12/16 16:00 12/12/16 16:00 Intake and Output: 12/12/16 12/12/16 06:59 18:59 Intake Total 780 Output Total 550 Balance 230 - Medications Medications: Current Medications Acetaminophen (Tylenol 325mg Tab) 650 mg PO Q4 PRN PRN Reason: Fever >100.4 F Albuterol/Ipratropium (Duoneb 3 Mg/0.5 Mg (3 Ml) Ud) 3 ml IH [id number] [facility] Last Admin: 12/12/16 14:38 Dose: 3 ml Albuterol/Ipratropium (Duoneb 3 Mg/0.5 Mg (3 Ml) Ud) 3 ml IH Q2H PRN PRN Reason: Shortness of Breath Arformoterol Tartrate (Brovana) 15 mcg IH [id number] [facility] Last Admin: 12/12/16 07:16 Dose: 15 mcg Aspirin (Aspirin Chewable) 81 mg PO DAILY [facility] Last Admin: 12/12/16 09:53 Dose: 81 mg Bisacodyl (Dulcolax) 5 mg PO BID PRN PRN Reason: Constipation Budesonide (Pulmicort Respules) 1 mg IH [id number] [facility] Last Admin: 12/12/16 07:16 Dose: 1 mg Donepezil HCl (Aricept) 10 mg PO HS [facility] Last Admin: 12/11/16 22:02 Dose: 10 mg Enoxaparin Sodium (Lovenox) 40 mg SC DAILY [facility] PRN Reason: Protocol Last Admin: 12/12/16 09:53 Dose: 40 mg Guaifenesin (Mucinex La) 600 mg PO BID R[facility] Last Admin: 12/12/16 09:55 Dose: 600 mg Hydralazine HCl (Apresoline) 10 mg IVP Q6H PRN PRN Reason: Systolic Blood Pressure Last Admin: 12/09/16 06:07 Dose: 10 mg Vancomycin HCl (Vancomycin 1gm) 1 gm in 250 mls @ 167 mls/hr IVPB DAILY R[facility] PRN Reason: Protocol Last Admin: 12/12/16 12:57 Dose: 167 mls/hr Cefepime HCl (Maxipime 1gm) 1 gm in 100 mls @ 100 mls/hr IVPB Q12 R[facility] PRN Reason: Protocol Last Admin: 12/12/16 09:54 Dose: 100 mls/hr Azithromycin (Zithromax 500mg In Ns) 500 mg in 250 mls @ 167 mls/hr IVPB DAILY [facility] PRN Reason: Protocol Last Admin: 12/12/16 11:16 Dose: 167 mls/hr Losartan Potassium (Cozaar) 50 mg PO DAILY [facility] Last Admin: 12/12/16 09:53 Dose: 50 mg Pantoprazole Sodium (Protonix Ec Tab) 40 mg PO 0600 [facility] Last Admin: 12/12/16 06:30 Dose: 40 mg Prednisone (Prednisone Tab) 20 mg PO DAILY [facility] Last Admin: 12/12/16 09:55 Dose: 20 mg - Labs Labs: 12/12/16 06:35 12/12/16 06:35 PT 12.0 Seconds (9.9-11.8) H 12/07/16 17:05 INR 1.11 (0.93-1.08) H 12/07/16 17:05 APTT 33.6 Seconds (23.7-30.8) H 12/07/16 17:05 - Constitutional Appears: Non-toxic, No Acute Distress, Chronically Ill - Head Exam Head Exam: ATRAUMATIC, NORMOCEPHALIC - Eye Exam Eye Exam: EOMI, PERRL Pupil Exam: NORMAL ACCOMODATION, PERRL - ENT Exam ENT Exam: Mucous Membranes Moist, Normal External Ear Exam, TM's Normal Bilaterally - Neck Exam Neck Exam: Full ROM, Normal Inspection - Respiratory Exam Respiratory Exam: Clear to Ausculation Bilateral, NORMAL BREATHING PATTERN. absent: Rales, Rhonchi, Wheezes - Cardiovascular Exam Cardiovascular Exam: REGULAR RHYTHM, RRR, +S1, +S2 - GI/Abdominal Exam GI & Abdominal Exam: Soft, Normal Bowel Sounds. absent: Distended, Tenderness - Extremities Exam Extremities Exam: Full ROM, Normal Inspection - Neurological Exam Neurological Exam: Alert, Awake, CN II-XII Intact, Oriented x3 - Psychiatric Exam Psychiatric exam: Normal Affect, Normal Mood - Skin Skin Exam: Intact, Normal Color Assessment and Plan - Assessment and Plan (Free Text) Assessment: 86 yo male with productive cough, subjective fevers, and SOB found with leukocytosis and findings of left lower lobe pneumonia on the CT scan of the chest. The patient is awake and alert. He feels better since coming to the hospital. He was febrile to 101.5 F on admission. The patient has multiple medical issues including HTN and COPD. Started on Vancomycin and Cefepime for antibiotic coverage. Noted Meropenem started today. Cultures negative at 24 hours. Would continue on Cefepime for now with consideration of addition of Azithromycin or Levaquin. Sputum for culture. The patient may not need Vancomycin but would await sputum cultures. Sputum collected and sent for evaluation. Afebrile currently. On Vancomycin IV, Cefepime, and Azithromycin. Cultures negative. Overall, patient has improved. Thank you for allowing me to participate in the care of this patient, we will follow with you. Possible discharge today.
--- NOTE | 2016-12-12 18:46 | CP.PCM.PN ---
Subjective - Date & Time of Evaluation Date of Evaluation: 12/12/16 Time of Evaluation: 15:00 - Subjective Subjective: Patient is an 86yo male with past medical history of COPD, dementia, hypertension, TIA, osteoarthritis that presented to [facility] accompanied by family who reported that he had been feeling short of breath associated with worsening productive cough with yellowish sputum. Per family, now on antibiotics, feels better, decrease cough and SOB Objective - Vital Signs/Intake and Output Vital Signs (last 24 hours): Temp Pulse Resp BP Pulse Ox 98.0 F 74 18 160/79 H 96 12/12/16 16:00 12/12/16 16:00 12/12/16 16:00 12/12/16 16:00 12/12/16 16:00 Intake and Output: 12/12/16 12/12/16 06:59 18:59 Intake Total 780 Output Total 550 Balance 230 - Medications Medications: Current Medications Acetaminophen (Tylenol 325mg Tab) 650 mg PO Q4 PRN PRN Reason: Fever >100.4 F Albuterol/Ipratropium (Duoneb 3 Mg/0.5 Mg (3 Ml) Ud) 3 ml IH [id number] [facility] Last Admin: 12/12/16 14:38 Dose: 3 ml Albuterol/Ipratropium (Duoneb 3 Mg/0.5 Mg (3 Ml) Ud) 3 ml IH Q2H PRN PRN Reason: Shortness of Breath Arformoterol Tartrate (Brovana) 15 mcg IH [id number] [facility] Last Admin: 12/12/16 07:16 Dose: 15 mcg Aspirin (Aspirin Chewable) 81 mg PO DAILY [facility] Last Admin: 12/12/16 09:53 Dose: 81 mg Bisacodyl (Dulcolax) 5 mg PO BID PRN PRN Reason: Constipation Budesonide (Pulmicort Respules) 1 mg IH [id number] [facility] Last Admin: 12/12/16 07:16 Dose: 1 mg Donepezil HCl (Aricept) 10 mg PO HS [facility] Last Admin: 12/11/16 22:02 Dose: 10 mg Enoxaparin Sodium (Lovenox) 40 mg SC DAILY [facility] PRN Reason: Protocol Last Admin: 12/12/16 09:53 Dose: 40 mg Guaifenesin (Mucinex La) 600 mg PO BID [facility] Last Admin: 12/12/16 09:55 Dose: 600 mg Hydralazine HCl (Apresoline) 10 mg IVP Q6H PRN PRN Reason: Systolic Blood Pressure Last Admin: 12/09/16 06:07 Dose: 10 mg Vancomycin HCl (Vancomycin 1gm) 1 gm in 250 mls @ 167 mls/hr IVPB DAILY [facility] PRN Reason: Protocol Last Admin: 12/12/16 12:57 Dose: 167 mls/hr Cefepime HCl (Maxipime 1gm) 1 gm in 100 mls @ 100 mls/hr IVPB Q12 [facility] PRN Reason: Protocol Last Admin: 12/12/16 09:54 Dose: 100 mls/hr Azithromycin (Zithromax 500mg In Ns) 500 mg in 250 mls @ 167 mls/hr IVPB DAILY [facility] PRN Reason: Protocol Last Admin: 12/12/16 11:16 Dose: 167 mls/hr Losartan Potassium (Cozaar) 50 mg PO DAILY [facility] Last Admin: 12/12/16 09:53 Dose: 50 mg Pantoprazole Sodium (Protonix Ec Tab) 40 mg PO 0600 [facility] Last Admin: 12/12/16 06:30 Dose: 40 mg Prednisone (Prednisone Tab) 20 mg PO DAILY [facility] Last Admin: 12/12/16 09:55 Dose: 20 mg - Labs Labs: 12/12/16 06:35 12/12/16 06:35 PT 12.0 Seconds (9.9-11.8) H 12/07/16 17:05 INR 1.11 (0.93-1.08) H 12/07/16 17:05 APTT 33.6 Seconds (23.7-30.8) H 12/07/16 17:05 - Constitutional Appears: In Acute Distress - Head Exam Head Exam: ATRAUMATIC, NORMAL INSPECTION, NORMOCEPHALIC - Neck Exam Neck Exam: Full ROM, Normal Inspection. absent: Lymphadenopathy - Respiratory Exam Respiratory Exam: Prolonged Expiratory Phase, Rales, Rhonchi, NORMAL BREATHING PATTERN - Cardiovascular Exam Cardiovascular Exam: REGULAR RHYTHM, +S1, +S2. absent: Murmur - GI/Abdominal Exam GI & Abdominal Exam: Soft, Normal Bowel Sounds. absent: Tenderness - Extremities Exam Extremities Exam: Full ROM, Normal Capillary Refill, Normal Inspection. absent : Joint Swelling, Pedal Edema - Neurological Exam Neurological Exam: Alert, Awake, CN II-XII Intact, Normal Gait, Oriented x3 - Skin Skin Exam: Dry, Intact, Normal Color, Warm Assessment and Plan (1) Pneumonia Assessment & Plan: on anti biotics, aspiration precaution Status: Acute (2) COPD exacerbation Assessment & Plan: broncho dilators Status: Acute (3) Hypoxia Assessment & Plan: supplement oxygen Status: Acute (4) Sleep apnea Assessment & Plan: sleep apnea precaution, out patient sleep study Status: Acute
--- NOTE | 2016-12-13 12:03 | CP.PCM.PN ---
<Eamon Car - Last Filed: 12/13/16 12:00> Subjective - Date & Time of Evaluation Date of Evaluation: 12/10/16 Time of Evaluation: 10:35 - Subjective Subjective: Medicine progress note: Pt seen and examined at bedside. No acute events overnight. Pt denies any sob or cp. Denies any morales, dizziness, f/c, abd pain, n/v/d. Objective - Vital Signs/Intake and Output Vital Signs (last 24 hours): Temp Pulse Resp BP Pulse Ox 97.9 F 671 H 20 132/64 96 12/10/16 05:56 12/10/16 10:14 12/10/16 05:56 12/10/16 10:14 12/10/16 05:56 Intake and Output: 12/10/16 12/10/16 06:59 18:59 Intake Total 1180 Output Total 325 Balance 855 - Medications Medications: Current Medications Acetaminophen (Tylenol 325mg Tab) 650 mg PO Q4 PRN PRN Reason: Fever >100.4 F Albuterol/Ipratropium (Duoneb 3 Mg/0.5 Mg (3 Ml) Ud) 3 ml IH [id number] [facility] Last Admin: 12/10/16 11:17 Dose: 3 ml Albuterol/Ipratropium (Duoneb 3 Mg/0.5 Mg (3 Ml) Ud) 3 ml IH Q2H PRN PRN Reason: Shortness of Breath Arformoterol Tartrate (Brovana) 15 mcg IH [id number] [facility] Last Admin: 12/10/16 07:48 Dose: 15 mcg Aspirin (Aspirin Chewable) 81 mg PO DAILY [facility] Last Admin: 12/10/16 10:14 Dose: 81 mg Bisacodyl (Dulcolax) 5 mg PO BID PRN PRN Reason: Constipation Budesonide (Pulmicort Respules) 1 mg IH [id number] [facility] Last Admin: 12/10/16 07:47 Dose: 1 mg Donepezil HCl (Aricept) 10 mg PO HS [facility] Last Admin: 12/09/16 21:46 Dose: 10 mg Enoxaparin Sodium (Lovenox) 40 mg SC DAILY [facility] PRN Reason: Protocol Last Admin: 12/10/16 10:34 Dose: 40 mg Guaifenesin (Mucinex La) 600 mg PO BID [facility] Last Admin: 12/10/16 10:12 Dose: 600 mg Hydralazine HCl (Apresoline) 10 mg IVP Q6H PRN PRN Reason: Systolic Blood Pressure Last Admin: 12/09/16 06:07 Dose: 10 mg Vancomycin HCl (Vancomycin 1gm) 1 gm in 250 mls @ 167 mls/hr IVPB DAILY [facility] PRN Reason: Protocol Last Admin: 12/10/16 10:13 Dose: 167 mls/hr Cefepime HCl (Maxipime 1gm) 1 gm in 100 mls @ 100 mls/hr IVPB Q12 [facility] PRN Reason: Protocol Last Admin: 12/10/16 10:12 Dose: 100 mls/hr Azithromycin (Zithromax 500mg In Ns) 500 mg in 250 mls @ 167 mls/hr IVPB DAILY [facility] PRN Reason: Protocol Last Admin: 12/10/16 10:13 Dose: 167 mls/hr Losartan Potassium (Cozaar) 50 mg PO DAILY [facility] Last Admin: 12/10/16 10:14 Dose: 50 mg Pantoprazole Sodium (Protonix Ec Tab) 40 mg PO 0600 [facility] Last Admin: 12/10/16 05:45 Dose: 40 mg Prednisone (Prednisone Tab) 20 mg PO DAILY [facility] Last Admin: 12/10/16 10:14 Dose: 20 mg - Labs Labs: 12/10/16 09:10 12/10/16 09:10 PT 12.0 Seconds (9.9-11.8) H 12/07/16 17:05 INR 1.11 (0.93-1.08) H 12/07/16 17:05 APTT 33.6 Seconds (23.7-30.8) H 12/07/16 17:05 - Constitutional Appears: No Acute Distress - Head Exam Head Exam: ATRAUMATIC, NORMAL INSPECTION, NORMOCEPHALIC - Eye Exam Eye Exam: EOMI, Normal appearance, PERRL Pupil Exam: NORMAL ACCOMODATION, PERRL - ENT Exam ENT Exam: Mucous Membranes Moist - Neck Exam Neck Exam: Full ROM, Normal Inspection. absent: Lymphadenopathy - Respiratory Exam Respiratory Exam: Accessory Muscle Use, Clear to Ausculation Bilateral. absent : Wheezes - Cardiovascular Exam Cardiovascular Exam: REGULAR RHYTHM, +S1, +S2. absent: Murmur - GI/Abdominal Exam GI & Abdominal Exam: Soft, Normal Bowel Sounds. absent: Tenderness - Extremities Exam Extremities Exam: Full ROM, Normal Capillary Refill, Normal Inspection. absent : Joint Swelling, Pedal Edema - Back Exam Back Exam: NORMAL INSPECTION - Neurological Exam Neurological Exam: Alert, Awake, CN II-XII Intact, Normal Gait, Oriented x3 - Psychiatric Exam Psychiatric exam: Normal Affect, Normal Mood - Skin Skin Exam: Dry, Intact, Normal Color, Warm Assessment and Plan - Assessment and Plan (Free Text) Assessment: 86yo male with history of COPD, hypertension, TIA, osteoarthritis presents with sepsis 2/2 L lower lobe pneumonia 1. Sepsis 2/2 L lower lobe pneumonia - Currently afebrile, wbc trending down - abx - Latest Lactic Acid 3.6 - CXR - no active dx - Cont Vanc, cefepime, and azithromycin - CT chest w/o contrast - L lower lobe pneumonia -CXR reviewed - no active disease -EKG reviewed; sinus rhythm with PAC's, left axis deviation, incomplete RBBB, inferior infarct (age undetermined); compared to prior EKG's -Tylenol 650mg q4h PRN for fevers -Sepsis workup pending: Blood negative x 48hr, urine neg, sputum cultures; procalcitonin .05 -ID consulted - Dr. Mcdowell - cont vanc cefpime and azithro, f/u outpt abx - Cardiology consulted and recommended to cont conservative management. Cont Asa , cozar, and lovenox 2. COPD -Continue duoneb q4h RYLIE and q2n PRN -Prednisone 20 PO daily -O2 supplementation to keep SaO2 90-94 -Continue home inhaled Pulmicort and Brovana -Pulmonary consulted - Dr. Lynch - cont current management 3. Hypertension -Continue home losartan 4. GI/DVT ppx -Protonix & Lovenox PT eval and treat Patient seen and case discussed in detail with Dr. Santos. <Tom PLASCENCIA,[facility] - Last Filed: 12/24/16 11:30> Objective - Vital Signs/Intake and Output Vital Signs (last 24 hours): Temp Pulse Resp BP Pulse Ox 98.0 F 74 18 160/79 H 96 12/12/16 16:00 12/12/16 16:00 12/12/16 16:00 12/12/16 16:00 12/12/16 16:00 - Labs Labs: 12/12/16 06:35 12/12/16 06:35 PT 12.0 Seconds (9.9-11.8) H 12/07/16 17:05 INR 1.11 (0.93-1.08) H 12/07/16 17:05 APTT 33.6 Seconds (23.7-30.8) H 12/07/16 17:05 Attending/Attestation - Attestation I have personally seen and examined this patient.: Yes I have fully participated in the care of the patient.: Yes I have reviewed all pertinent clinical information, including history, physical exam and plan: Yes Notes (Text): 12/24/16 11:29 Please see discharge summary.
== END 2016-12-12 19:09 | disposition home or self-care (01) | DRG 584 ==
LOC: ED 16:08 → ERH 18:13 → 2RSO 23:42 → 5RSO 12-11 14:59
PROVIDERS: ADMIT Internal Medicine; ATTEND Internal Medicine
PROC: 3E0F7GC Introduction of Other Therapeutic Substance into Respiratory Tract, Via Natural or Artificial Opening (ICD-10-PCS; principal; 2016-12-07)
DX: A41.9 Sepsis, unspecified organism (principal); J18.9 Pneumonia, unspecified organism; J44.0 Chronic obstructive pulmonary disease with (acute) lower respiratory infection; F03.90 Unspecified dementia, unspecified severity, without behavioral disturbance, psychotic disturbance, mood disturbance, and anxiety; J44.1 Chronic obstructive pulmonary disease with (acute) exacerbation; N39.0 Urinary tract infection, site not specified; R09.02 Hypoxemia; I10 Essential (primary) hypertension; N40.0 Benign prostatic hyperplasia without lower urinary tract symptoms; Y95 Nosocomial condition; R07.9 Chest pain, unspecified; G47.30 Sleep apnea, unspecified; M19.90 Unspecified osteoarthritis, unspecified site; Z79.51 Long term (current) use of inhaled steroids; Z86.73 Personal history of transient ischemic attack (TIA), and cerebral infarction without residual deficits; Z87.891 Personal history of nicotine dependence

== ENCOUNTER 2017-05-31 22:17 | Inpatient (IN) | payer MEDICARE, MEDICAID ==
--- NOTE | 2017-05-31 22:37 | ED PDOC ---
Arrival/HPI - General Chief Complaint: Chest Pain Time Seen by Provider: 05/31/17 22:19 Historian: Patient, Family - History of Present Illness Narrative History of Present Illness (Text): 05/31/17 22:29 Eric Blancas is an 87 year old male, whose past medical history includes COPD, dementia, hypertension, TIA, osteoarthritis, and recent pneumonia , who presents to the Emergency department brought in by EMS accompanied by family complaining of chest pain for the past 3 hours. Family also notes patient has been experiencing left-sided shoulder pain and cough for the past few days. Patient received Aspirin in the field. Patient denies any nausea, vomiting, diarrhea, urinary symptoms, back pain, neck pain, headache, dizziness , or any other complaints. PMD: Dr. Deep Aguilar Symptom Onset: Gradual Symptom Course: Unchanged Activities at Onset: Light Context: Home Past Medical History - Provider Review Nursing Documentation Reviewed: Yes - Infectious Disease Hx of Infectious Diseases: None - Tetanus Immunization Tetanus Immunization: Unknown - Cardiac Hx Hypertension: Yes - Pulmonary Hx Respiratory Disorders: Yes (SMOKED CIGARETTES .QUIT 20 YRS AGO) - Neurological HX Cerebrovascular Accident: Yes (TIA) - HEENT Hx HEENT Disorder: Yes (WEARS RX GLASSES) - Renal Hx Renal Failure: Yes - Endocrine/Metabolic Hx Endocrine Disorders: No - Hematological/Oncological Hx Blood Disorders: No - Integumentary Hx Dermatological Disorder: Yes (MULTIPLE ROUND OLD AGE SPOTS TO FACE,ARMS) - Musculoskeletal/Rheumatological Hx Arthritis: Yes - Gastrointestinal Hx Gastrointestinal Disorders: No - Genitourinary/Gynecological Hx Prostate Problems: Yes - Psychiatric Hx Psychophysiologic Disorder: No Hx Substance Use: No - Past Surgical History Past Surgical History: No Previous - Anesthesia Hx Anesthesia: No - Suicidal Assessment Feels Threatened In Home Enviroment: No Family/Social History - Physician Review Nursing Documentation Reviewed: Yes Family/Social History: Unknown Family HX Smoking Status: Former Smoker Hx Alcohol Use: Yes (OCCASIONAL WINE H/O) Hx Substance Use: No Hx Substance Use Treatment: No Allergies/Home Meds Allergies/Adverse Reactions: Allergies No Known Allergies Allergy (Verified 12/06/16 16:19) Home Medications: Home Meds Medication Instructions Recorded Confirmed Unobtainable 05/31/17 05/31/17 Review of Systems - Physician Review All systems were reviewed & negative as marked: Yes - Review of Systems Constitutional: Normal. absent: Fevers Eyes: Normal ENT: Normal Respiratory: Cough Cardiovascular: Chest Pain Gastrointestinal: Normal. absent: Abdominal Pain, Diarrhea, Nausea, Vomiting Genitourinary Male: Normal. absent: Dysuria, Frequency, Hematuria, Urinary Output Changes Musculoskeletal: Arthralgias (+left shoulder pain). absent: Back Pain, Neck Pain Skin: Normal. absent: Rash Neurological: Normal. absent: Headache, Dizziness Endocrine: Normal Hemo/Lymphatic: Normal Psychiatric: Normal Physical Exam Vital Signs Reviewed: Yes Vital Signs Temp Pulse Resp BP Pulse Ox 06/01/17 02:00 73 18 150/68 100 06/01/17 01:16 75 18 152/73 H 100 06/01/17 00:51 72 18 147/54 L 100 05/31/17 22:18 97.6 F 75 18 194/87 H 96 Temperature: Afebrile Blood Pressure: Hypertensive Pulse: Regular Respiratory Rate: Normal Appearance: Positive for: Well-Appearing, Non-Toxic, Comfortable Pain Distress: None Mental Status: Positive for: Alert and Oriented X 3 - Systems Exam Head: Present: Atraumatic, Normocephalic Pupils: Present: PERRL Extroacular Muscles: Present: EOMI Conjunctiva: Present: Normal Mouth: Present: Moist Mucous Membranes Neck: Present: Normal Range of Motion Respiratory/Chest: Present: Clear to Auscultation, Good Air Exchange. No: Respiratory Distress, Accessory Muscle Use Cardiovascular: Present: Regular Rate and Rhythm, Normal S1, S2. No: Murmurs Abdomen: Present: Normal Bowel Sounds. No: Tenderness, Distention, Peritoneal Signs Back: Present: Normal Inspection Upper Extremity: Present: Normal Inspection. No: Cyanosis, Edema Lower Extremity: Present: Normal Inspection. No: Edema Neurological: Present: GCS=15, CN II-XII Intact, Speech Normal Skin: Present: Warm, Dry, Normal Color. No: Rashes Psychiatric: Present: Alert, Oriented x 3, Normal Insight, Normal Concentration Medical Decision Making ED Course and Treatment: 05/31/17 22:29 Impression: 87 year old male complaining of chest pain, cough, and left shoulder pain. Differential Diagnosis included but are not limited to: CHF vs. ACS vs. pneumonia Plan: -- EKG -- Chest X-ray -- Labs, cardiac enzymes, BNP, blood cultures -- Reassess and disposition Prior Visits: Notes and results from previous visits were reviewed. On 12/06/2016, pt was seen in the Emergency department for cough, fever, fatigue , and decreased appetite. Pt was admitted to the hospital for further evaluation. Progress Notes: Reviewed EKG, sinus rhythm at 76 bpm. Occasional PVCs. Incomplete RBBB. Non- specific ST/T wave changes. 05/31/17 23:48 Chest X-ray reviewed, shows mild CHF. 05/31/17 23:[address] Aguilar, who is aware and agrees with plan. Accepts pt in to his service. Pt will go to remote telemetry observation for CHF. - Lab Interpretations Microbiology Results: Microbiology Results 05/31/17 23:00 Blood-Venous Blood Culture - Preliminary NO GROWTH AFTER 3 DAYS 05/31/17 22:45 Blood-Venous Blood Culture - Preliminary NO GROWTH AFTER 3 DAYS Lab Results: 05/31/17 22:23 05/31/17 22:23 Lab Results 05/31/17 22:23: Sodium 144, Potassium 4.2, Chloride 105, Carbon Dioxide 28, Anion Gap 15, BUN 18, Creatinine 1.2, Est GFR ( Amer) > 60, Est GFR (Non- Af Amer) 57, Random Glucose 103, Calcium 9.3, Total Bilirubin 0.7, AST 34, ALT 30, Alkaline Phosphatase 81, Lactate Dehydrogenase 446, Total Creatine Kinase 27 L, Troponin I 0.01 D, NT-Pro-B Natriuret Pep 520 H, Total Protein 7.7, Albumin 4.3, Globulin 3.4, Albumin/Globulin Ratio 1.3 05/31/17 22:23: PT 11.3, INR 1.04, APTT 33.9 05/31/17 22:23: WBC 12.3 H, RBC 4.79, Hgb 14.1, Hct 42.1, MCV 87.9, MCH 29.4, MCHC 33.5, RDW 14.6 H, Plt Count 267, MPV 10.8, Gran % 66.6, Lymph % (Auto) 24.6 , Barron % (Auto) 7.2 H, Eos % (Auto) 1.4 L, Baso % (Auto) 0.2, Gran # 8.22 H, Lymph # 3.0, Barron # 0.9 H, Eos # 0.2, Baso # 0.02 I have reviewed the lab results: Yes - RAD Interpretation Radiology Orders: 05/31/17 22:49 CHEST PORTABLE [RAD] Stat Transfer Controller: ED Physician - EKG Interpretation Interpreted by ED Physician: Yes Type: 12 lead EKG - Medication Orders Current Medication Orders: Acetaminophen (Tylenol 325mg Tab) 650 mg PO Q4H PRN PRN Reason: Pain, Mild (1-3) Albuterol/Ipratropium (Duoneb 3 Mg/0.5 Mg (3 Ml) Ud) 3 ml IH [id number] [facility] Last Admin: 06/04/17 07:32 Dose: 3 ml Alprazolam (Xanax) 0.5 mg PO DAILY PRN; Protocol PRN Reason: Anxiety Last Admin: 06/02/17 19:57 Dose: 0.5 mg Behavioural Document 06/02/17 19:57 FC (Rec: 06/02/17 19:57 FC [id number]) Maintenance Maintenance Dose No Nonmedicinal Nonmedicinal Interventions Therapeutic Communication Give food/fluids Behavior Behavior for Medication: Anxiety Continuous pacing/restlessness Hallucinations/paranoid/ delusions/extreme fear Pulling IV lines/tubes/ catheter Amlodipine Besylate (Norvasc) 10 mg PO DAILY [facility] Last Admin: 06/03/17 09:17 Dose: 10 mg MAR Blood Pressure Document 06/03/17 09:17 RV (Rec: 06/03/17 09:17 RV [id number]) Blood Pressure Blood Pressure (100/60-150/90) 134/64 Donepezil HCl (Aricept) 5 mg PO HS [facility] Last Admin: 06/03/17 22:19 Dose: 5 mg Levofloxacin/Dextrose (Levaquin 750mg) 750 mg IVPB Q48H [facility] Last Admin: 06/03/17 09:17 Dose: 750 mg eMAR Start Stop Document 06/03/17 09:17 RV (Rec: 06/03/17 09:17 RV [id number]) Intravenous Solution Start Date 06/03/17 Start Time 09:17 End Date 06/03/17 End time 10:17 Total Infusion Time 60 Methylprednisolone (Solu-Medrol) 20 mg IVP Q12 [facility] Last Admin: 06/03/17 22:20 Dose: 20 mg IVP Administration Document 06/03/17 22:20 AJP (Rec: 12/23/17 22:21 AJ [id number]) Charges for Administration # of IVP Administrations 1 Ondansetron HCl (Zofran Inj) 4 mg IVP Q6H PRN PRN Reason: Nausea/Vomiting Last Admin: 06/01/17 10:14 Dose: 4 mg IVP Administration Document 06/01/17 10:14 SG (Rec: 06/01/17 10:14 SG [id number]) Charges for Administration # of IVP Administrations 1 Pantoprazole Sodium (Protonix Ec Tab) 40 mg PO DAILY [facility] Last Admin: 06/03/17 09:17 Dose: 40 mg Promethazine HCl/Dextromethorphan (Phenergan Dm Syrup) 5 ml PO Q4H PRN PRN Reason: Cough Last Admin: 06/03/17 09:17 Dose: 5 ml Discontinued Medications Furosemide (Lasix) 20 mg IVP ONCE ONE Stop: 05/31/17 23:49 Last Admin: 06/01/17 00:51 Dose: 20 mg MAR Blood Pressure Document 06/01/17 00:51 AD (Rec: 06/01/17 01:18 AD [id number]) Blood Pressure Blood Pressure (100/60-150/90) 147/54 IVP Administration Document 06/01/17 00:51 AD (Rec: 06/01/17 01:18 AD [id number]) Charges for Administration # of IVP Administrations 1 Sodium Chloride (Sodium Chloride 0.45%) 1,000 mls @ 70 mls/hr IV .[id number] [facility] Last Admin: 06/03/17 09:18 Dose: 70 mls/hr eMAR Start Stop Document 06/03/17 09:18 RV (Rec: 06/03/17 09:18 RV [id number]) Intravenous Solution Start Date 06/03/17 Start Time 09:18 Levofloxacin/Dextrose (Levaquin 750mg) 750 mg IVPB STAT STA Stop: 05/31/17 23:50 Last Admin: 06/01/17 00:07 Dose: 750 mg eMAR Start Stop Document 06/01/17 00:07 AD (Rec: 06/01/17 00:08 AD [id number]) Intravenous Solution Start Date 12/21/17 Start Time 00:07 Losartan Potassium (Cozaar) 50 mg PO DAILY [facility] Last Admin: 06/02/17 11:15 Dose: Not Given Non-Admin Reason: BP Parameters Not Met Methylprednisolone (Solu-Medrol) 40 mg IVP Q12 [facility] Last Admin: 06/03/17 09:16 Dose: 40 mg IVP Administration Document 06/03/17 09:16 RV (Rec: 06/03/17 09:17 RV [id number]) Charges for Administration # of IVP Administrations 1 Morphine Sulfate (Morphine) 2 mg IVP STAT STA Stop: 05/31/17 23:49 Last Admin: 06/01/17 00:06 Dose: 2 mg MAR Pain Assessment Document 06/01/17 00:06 AD (Rec: 06/01/17 00:07 AD [id number]) Pain Reassessment Is this a pain reassessment? No Presence of Pain Presence of Pain Yes Pain Scale Used Pain Scale Used Numeric Location Left, Right or Bilateral Left Pain Location Body Site Shoulder Description Description Sharp Intensity of Pain at present 10 Pain Behavior Facial Grimacing IVP Administration Document 06/01/17 00:06 AD (Rec: 06/01/17 00:07 AD [id number]) Charges for Administration # of IVP Administrations 1 Re-Assess: [facility] Pain Assessment Document 06/01/17 01:06 FC (Rec: 06/01/17 02:56 FC [id number]) Pain Reassessment Is this a pain reassessment? No Pantoprazole Sodium (Protonix Inj) 40 mg IVP DAILY [facility] Last Admin: 06/01/17 10:16 Dose: 40 mg IVP Administration Document 06/01/17 10:16 SG (Rec: 06/01/17 10:16 SG [id number]) Charges for Administration # of IVP Administrations 1 - Scribe Statement The provider has reviewed the documentation as recorded by the Nadegeibchase Negron Provider Scribe Attestation: All medical record entries made by the Scribe were at my direction and personally dictated by me. I have reviewed the chart and agree that the record accurately reflects my personal performance of the history, physical exam, medical decision making, and the department course for this patient. I have also personally directed, reviewed, and agree with the discharge instructions and disposition. Disposition/Present on Arrival - Present on Arrival Any Indicators Present on Arrival: No History of DVT/PE: No History of Uncontrolled Diabetes: No Urinary Catheter: No History of Decub. Ulcer: No History Surgical Site Infection Following: None - Disposition Have Diagnosis and Disposition been Completed?: Yes Diagnosis: Congestive heart failure (CHF) Disposition: HOSPITALIZED Disposition Time: 00:30 Condition: FAIR
[2017-05-31 22:58] LABS: BASO # 0.02 K/mm3 (0.0-2.0); BASO % 0.2 % (0.0-3.0); EOS # 0.2 (0.0-0.7); EOS % 1.4 % (1.5-5.0); GRAN # 8.22 (1.4-6.5); GRAN % 66.6 % (50.0-68.0); HEMATOCRIT 42.1 % (42.0-52.0); LYMPH % 24.6 % (22.0-35.0); MEAN CELL VOLUME 87.9 fl (80.0-105.0); MEAN CORPUSCULAR HEMOGLOBIN 29.4 pg (25.0-35.0); MEAN CORPUSCULAR HGB CONC 33.5 g/dl (31.0-37.0); MEAN PLATELET VOLUME 10.8 fl (7.0-11.0); MONO # 0.9 (0.1-0.6); MONO % 7.2 % (1.0-6.0); RED CELL DISTRIBUTION WIDTH 14.6 % (11.5-14.5); WHITE BLOOD COUNT 12.3 10^3/ul (4.5-11.0)
[2017-05-31 23:11] LABS: ALB/GLOB RATIO 1.3 (1.1-1.8); ALKALINE PHOSPHATASE 81 U/L (38-126); ALT/SGPT 30 U/L (7-56); AST/SGOT 34 U/L (17-59); BILIRUBIN,TOTAL 0.7 mg/dL (0.2-1.3); BLOOD UREA NITROGEN 18 mg/dL (7-21); CALCIUM 9.3 mg/dL (8.4-10.5); CARBON DIOXIDE 28 mmol/L (21-33); CHLORIDE 105 mmol/L (98-107); GFR AFRICAN-AMERICAN > 60; GLUCOSE,RANDOM 103 mg/dL (70-110); POTASSIUM 4.2 mmol/L (3.6-5.0); SODIUM 144 mmol/L (132-148); TOTAL PROTEIN 7.7 g/dL (5.8-8.3)
[2017-05-31 23:14] LABS: INR 1.04 (0.93-1.08); PARTIAL THROMBOPLASTIN TIME 33.9 Seconds (25.1-36.5)
[2017-05-31 23:24] LABS: TROPONIN I 0.01 ng/mL
[2017-05-31] MEDS ORDERED: Morphine 2 mg/ml ISec IVP STA (23:48)
[2017-05-31] MEDS ORDERED: levoFLOXacin 750 mg in D5W 150 ML BAG IVPB STA (23:49)
[2017-06-01 03:11] VITALS: BMI 27.4
[2017-06-01] MEDS: levoFLOXacin 750 mg in D5W 150 ML BAG IVPB SCH (10:14)
[2017-06-01] MEDS: MethylPREDNISolone 40 mg Vial IVP SCH ×2 (10:14→21:20)
[2017-06-01] MEDS: Promethazine DM 6.25 mg-15 mg/5 ml Syrup PO PRN (10:16)
--- NOTE | 2017-06-01 10:22 | CARD ---
APPROVED REPORT EKG Measurement Heart [id number] [place] 148P35 [id number] <Conclusion> Sinus rhythm with premature supraventricular complexes Incomplete right bundle branch block Nonspecific ST abnormality Artifact present Probably no change
--- NOTE | 2017-06-01 13:32 | RAD ---
HISTORY: cp COMPARISON: comparison chest dated 12/12/2016 FINDINGS: LUNGS: Poor inspiration with low lung volumes, crowded bronchovascular markings and mild bibasilar atelectasis right greater than left. Developing pneumonitis could be excluded followup radiographs. The interstitial markings are also slightly increased and coarsened likely in part due to low lung volumes however possibility of sequela of reactive/inflammatory airway disease not excluded. Minimal biapical pleural thickening. PLEURA: No apparent pneumothorax. Tiny bilateral effusions not excluded. CARDIOVASCULAR: Heart appears borderline/ mildly enlarged OSSEOUS STRUCTURES: No significant abnormalities. VISUALIZED UPPER ABDOMEN: Normal. OTHER FINDINGS: None. IMPRESSION: Poor inspiration with low lung volumes, crowded bronchovascular markings and mild bibasilar atelectasis right greater than left. Developing pneumonitis could be excluded followup radiographs. The interstitial markings are also slightly increased and coarsened likely in part due to low lung volumes however possibility of sequela of reactive/inflammatory airway disease not excluded. . Tiny bilateral effusions not excluded. Minimal biapical pleural thickening.
[2017-06-01] MEDS: Albuterol-Ipratrop 3 mg / 0.5 (3 ml) UD IH SCH (19:30)
--- NOTE | 2017-06-01 23:03 | CON ---
DATE: 06/01/2017 REASON FOR CONSULT: Cough and shortness of breath. HISTORY OF PRESENT ILLNESS: This is an 87 years old gentleman, who is known to me from previous admissions with history of chronic obstructive lung disease, hypertension, osteoarthritis, chronic pain syndrome, comes in with a cough, shortness of breath. No nausea. No vomiting. No diarrhea. No leg pain or leg swelling. Presently, sitting up in a chair, feels better, still has a cough. PAST MEDICAL HISTORY: As per history of present illness. ALLERGIES: NONE KNOWN. FAMILY HISTORY: No significant cardiopulmonary disease reported. SOCIAL HISTORY: He is a smoker. Denies any alcohol use. MEDICATIONS: He is on Cozaar 50 mg daily, Levaquin 750 mg q. 48 hours, Norvasc 10 mg daily, Phenergan DM 5 mL q. 4 hours p.r.n., Protonix 40 mg daily, Solu-Medrol 40 mg q. 2 hours, Tylenol p.r.n. basis, Zofran q. 6 hours p.r.n. REVIEW OF SYSTEMS: No headache. No rhinitis. Has a cough, shortness of breath. No nausea. No vomiting. No diarrhea. No dysuria, leg pain or leg swelling. PHYSICAL EXAMINATION: GENERAL: Sitting up in a chair, no acute distress. VITAL SIGNS: Temperature 98, heart rate is 80, respiratory rate is 20, blood pressure 153/78, pulse ox 93% on nasal cannula. HEENT: Small oral cavity. Crowded airway. Mallampati score is IV. NECK: Supple. No JVD. LUNGS: Have crackles on the bases with rhonchi. HEART: S1 and S2. ABDOMEN: Soft, nontender. No organomegaly. EXTREMITIES: There is no edema. NEUROLOGICAL: Awake and alert. Follows simple command. LABORATORY DATA: Shows hemoglobin 14.1, hematocrit 42.1, WBC 12.3, platelet is 267. INR 1.04. Sodium 144, potassium 4.2, chloride 105, bicarbonate 28, BUN 18, creatinine 1.2, glucose 103, calcium is 9.3, AST 34, ALT 30, alk phos is 81, LDH is 446, troponin 0.01, proBNP 520, albumin is 3.4. Urinalysis shows wbc 10 to 15. Microbiology: Blood culture, sputum culture, urine culture, there is no growth. Had a CAT scan done in of the chest, at that time it shows left lower lobe pneumonia, otherwise unremarkable. Chest x-ray done in the ER yesterday shows poor inspiratory fill. Has some congestion and basilar atelectasis. IMPRESSION AND PLAN: Chronic obstructive lung disease, hypertension, history of benign prostatic hypertrophy, dementia, history of cardiac diastolic dysfunction, oropharyngeal dysphagia, may have sleep apnea syndrome. Agree with the present management. Continue intravenous and inhaled bronchodilators, antibiotics. We will try sleep study as outpatient. Echocardiogram to assess right ventricle function. Fall precaution. Thank you and we will follow with you. Dl Lynch MD
[2017-06-02] MEDS: Albuterol-Ipratrop 3 mg / 0.5 (3 ml) UD IH SCH ×4 (01:28→20:03)
[2017-06-02 07:13] LABS: HEMATOCRIT 34.8 % (42.0-52.0); MEAN CELL VOLUME 85.5 fl (80.0-105.0); MEAN CORPUSCULAR HEMOGLOBIN 28.3 pg (25.0-35.0); MEAN PLATELET VOLUME 10.4 fl (7.0-11.0); RED CELL DISTRIBUTION WIDTH 14.6 % (11.5-14.5); WHITE BLOOD COUNT 13.3 10^3/ul (4.5-11.0)
[2017-06-02 07:45] LABS: ALB/GLOB RATIO 1.2 (1.1-1.8); BILIRUBIN,TOTAL 0.6 mg/dL (0.2-1.3); CALCIUM 8.1 mg/dL (8.4-10.5); POTASSIUM 4.6 mmol/L (3.6-5.0); TOTAL PROTEIN 6.5 g/dL (5.8-8.3)
[2017-06-02] MEDS: Pantoprazole 40 mg EC Tab PO SCH (11:25)
[2017-06-02] MEDS: MethylPREDNISolone 40 mg Vial IVP SCH ×2 (11:25→22:27)
[2017-06-02] MEDS: Sodium Chloride 0.45% 1,000 ML IV SCH (13:00)
[2017-06-02 18:52] LABS: CALCIUM 8.2 mg/dL (8.4-10.5); POTASSIUM 3.8 mmol/L (3.6-5.0)
--- NOTE | 2017-06-02 20:32 | PN ---
PULMONARY PROGRESS NOTE DATE: 06/02/2017 REFERRING PHYSICIAN: Cody Aguilar MD SUBJECTIVE: He is out of bed to chair, upset with the family, daughter is at the bedside. Night was unremarkable. Feels better. Decrease cough. No nausea. No vomiting. No diarrhea. No leg pain or leg swelling. OBJECTIVE: GENERAL: In no acute distress. VITAL SIGNS: Temperature is 98, heart rate is 84, respiratory rate is 18, blood pressure is 109/56 and pulse oximetry 96% 2 L on nasal cannula. HEENT: Moist mucous membranes. Crowded airway. NECK: Supple. No JVD. LUNGS: Have improved airflow, still has crackles at bases. HEART: S1 and S2. ABDOMEN: Soft and nontender. No organomegaly. EXTREMITIES: Not much edema. NEUROLOGIC: Awake and alert. Follows simple commands. MEDICATIONS: He is on Aricept 5 mg at bedtime, DuoNeb q. 6 hour, Levaquin 750 mg q. 48 hour, Norvasc 10 mg daily, Phenergan DM 5 mL q. 4 hour p.r.n., Protonix 40 mg daily, IV fluid half normal saline 70 mL per hour, Solu-Medrol 40 mg q. 12 hour, Tylenol p.r.n. basis, and Zofran p.r.n. basis. LABORATORY DATA: Shows hemoglobin 11.5, hematocrit 34.8, WBC 13.3 and platelet count is 236. Sodium 136, potassium 4.6, chloride 102, bicarbonate 24, BUN 31, creatinine 2.0, glucose 133, calcium 8.1 AST 30, ALT 24, alk phos is 51 and albumin is 3.5. Microbiology; blood cultures have been negative. Had echocardiogram done, report is still pending. IMPRESSION AND PLAN: Chronic obstructive lung disease, hypertension, benign prostatic hyperplasia, dementia, history of cardiac diastolic dysfunction, oropharyngeal dysphagia, may have sleep apnea syndrome, renal insufficiency noted, the ARB is stopped, Norvasc was added. We will get chest x-ray that showed the stability of the infiltrate. Follow of electrolyte in morning. Continue bronchodilator. Sleep apnea precautions. I spoke to family at bedside, all the questions answered. Thank you and we will follow with you. Mohammad Syed, MD [facility] # [id number]
[2017-06-03] MEDS: Albuterol-Ipratrop 3 mg / 0.5 (3 ml) UD IH SCH ×4 (01:42→20:20)
[2017-06-03] MEDS: Promethazine DM 6.25 mg-15 mg/5 ml Syrup PO PRN ×2 (02:00→09:17)
--- NOTE | 2017-06-03 03:34 | HP ---
REASON FOR ADMISSION: Acute short of breath and dyspnea. HISTORY OF PRESENT ILLNESS: This is an 87-year-old male with a history of COPD, hypertension, and chronic dementia who came into the hospital with dyspnea symptoms. The patient was complaining of short of breath that gets worse. The patient did have a history of COPD exacerbation in the past multiple times and using inhalers at home. He denied any fever, any chills, any nausea, any vomiting, any chest pain or any other complaints. PAST MEDICAL HISTORY: As I mentioned, the patient does have hypertension, he does take inhaled nebulizers treatment, he take Aricept for his chronic dementia, Tylenol for arthritis. ALLERGIES: NO KNOWN ALLERGIES. REVIEW OF SYSTEMS: As in the present illness. The patient has chronic dementia, so it was difficult to obtain any information from him. PHYSICAL EXAMINATION: VITAL SIGNS: Temperature 97.4, heart rate 80, blood pressure 117/62, respirations 20 and saturating is 93% on room air. HEAD AND NECK: No JVD. No thyromegaly. CHEST: Clear, good air entry. CARDIAC: First sound and second sound normal. ABDOMEN: Soft and nontender. EXTREMITIES: No edema. NEUROLOGIC: The patient is moving all extremities. He is awake, alert, otherwise, normal. LABORATORY DATA: When he came in, he has white count of 12.3, hemoglobin 14.1, hematocrit 42.1, and platelets 267. PT and PTT was normal. Chemistry: Sodium 144, potassium 4.2, chloride 105, bicarb 28, BUN 18, creatinine 1.2, his blood sugar is 103, and his calcium is 9.3. Total bili is 0.7. AST 34, ALT 30, alkaline phosphatase 81, and lactate dehydrogenase normal at 446. Total CPK 27, which is low and troponin was negative. His proBNP is 520. Albumin and globulin is normal. IMPRESSION AND PLAN: This is an 87-year-old male who came into the hospital with acute short of breath. The patient does have acute chronic obstructive pulmonary disease exacerbation, already on steroids, Solu-Medrol. The patient also has high BNP, which could go his congestive heart failure; however, his symptoms are more of chronic obstructive pulmonary disease than congestive heart failure as his previous history. The patient also had a chest x-ray when he came in, which showed poor inspiration, low lung volumes, bronchovascular marking increased, atelectasis right greater than the left, possible developing pneumonitis cannot be excluded. There is increased interstitial marking and also tiny bilateral pleural effusion. The patient also had an electrocardiogram, which showed sinus rhythm with premature supraventricular complexes, incomplete right bundle, nonspecific ST-T changes. Acute chronic obstructive pulmonary exacerbation, acute congestive heart failure probably right-sided more than left, and community acquired pneumonia. The plan is to continue IV antibiotics. We will start Levaquin 500 mg daily. Continue inhaled bronchodilators DuoNeb and Solu-Medrol 40 mg q.12 hours. We will continue current therapy. We will follow up clinically. Hypertension, dementia, and generalized weakness, plan is to continue amlodipine 10 mg, Aricept 5 mg, and Tylenol p.r.n. Cody Aguilar MD
--- NOTE | 2017-06-03 08:26 | PN ---
DATE: 06/02/2017 SUBJECTIVE: Patient today seems comfortable. He is little bit agitated, tried to get out of the bed. Patient's cough is better, less coughing than before and otherwise patient seems better. PHYSICAL EXAMINATION VITAL SIGNS: Temperature is 98.6, heart rate is 84, blood pressure 109/56, respirations 18 and saturating 92% on room air. HEAD AND NECK: Normal. No JVD. No thyromegaly. CHEST: Clear. He has diminished breath sounds on the bases. CARDIAC: Normal. First sound and second sound normal. ABDOMEN: Soft and nontender. EXTREMITIES: No edema. NEUROLOGIC: Normal. He is moving all extremities expect he gets confused and disoriented to the place. LABORATORY DATA: Sodium 136, potassium 4.6, chloride 102, bicarbonate 24, BUN 31, creatinine is 2, blood sugar 133, calcium 8.1, total bilirubin 0.6. AST, ALT and alk phos is normal. His CBC, white count 13.3, hemoglobin 11.5, hematocrit 34.8 and platelets 236. IMPRESSION AND PLAN: 1. Community-acquired pneumonia, acute chronic obstructive pulmonary disease exacerbation. Continue IV steroids, continue Levaquin q. 48 hours, continue inhaled bronchodilators and oxygen therapy. 2. Patient does have dementia, sometimes gets agitated. We will give him Xanax p.r.n. We will get a neurology consult and psychiatry to evaluate him. If it get worse, at this time we will continue Aricept and will follow up clinically. 3. Hypertension. 4. Acute renal failure. His creatine when up to 2. We will start IV fluids at 60 mL per hour. We will get Dr. Merritt to look at him. Repeat lab in the morning and we will discontinue losartan, and we will follow up clinically. Also patient will start getting physical therapy, and we will consider Transitional Care Unit for consideration of care. Cody Aguilar MD
--- NOTE | 2017-06-03 09:04 | CARD ---
APPROVED REPORT EXAM: Two-dimensional and M-mode echocardiogram with Doppler and color Doppler. Other Information Quality : AverageRhythm : INDICATION Pulmonary Hypertention 2D DIMENSIONS Left Atrium (2D)4.3 (1.6-4.0cm)IVSd1.3 (0.7-1.1cm) LVDd4.8 (3.9-5.9cm)PWd1.3 (0.7-1.1cm) LVDs3.2 (2.5-4.0cm)FS (%) 34.4 % LVEF (%)63.0 (>50%) M-Mode DIMENSIONS Aortic Root3.40 (2.2-3.7cm)Aortic Cusp Exc.1.80 (1.5-2.0cm) Aortic Valve AoV Peak Efwtcjdi977.0cm/s Mitral Valve MV E Icsxmesk05.4cm/sMV A Vtyovqgj15.4cm/sE/A ratio0.5 TDI Lateral E' Peak V5.17cm/sMedial E' Peak V3.22cm/sE/Lateral E'8.2 E/Medial E'13.2 Pulmonary Valve PV Peak Rlggsnmj701.0cm/sPV Peak Grad.7mmHg Tricuspid Valve TR Peak Zqhnwrrb261kj/sRAP EGACTKAM44kwAgSJ Peak Gr.22mmHg [id number] LEFT VENTRICLE The left ventricle is normal size. There is mild concentric left ventricular hypertrophy. The left ventricular function is normal. The left ventricular ejection fraction is within the normal range. There is normal LV segmental wall motion. RIGHT VENTRICLE The right ventricle is normal size. ATRIA The left atrium size is normal. The right atrium size is normal. The interatrial septum is intact with no evidence for an atrial septal defect. AORTIC VALVE The aortic valve is normal in structure. MITRAL VALVE The mitral valve is normal in structure. Mitral annular calcification is mild. TRICUSPID VALVE The tricuspid valve is normal in structure. There is trace tricuspid regurgitation. PULMONIC VALVE The pulmonic valve is not well visualized. There is trace pulmonic valvular regurgitation. GREAT VESSELS The aortic root is normal in size. PERICARDIAL EFFUSION There is no pericardial effusion. <Conclusion> The left ventricle is normal size. There is mild concentric left ventricular hypertrophy. The left ventricular function is normal.
[2017-06-03] MEDS: MethylPREDNISolone 40 mg Vial IVP SCH ×2 (09:16→22:20)
[2017-06-03] MEDS: Pantoprazole 40 mg EC Tab PO SCH (09:17)
[2017-06-03] MEDS: levoFLOXacin 750 mg in D5W 150 ML BAG IVPB SCH (09:17)
[2017-06-03] MEDS: Sodium Chloride 0.45% 1,000 ML IV SCH (09:18)
--- NOTE | 2017-06-03 11:26 | RAD ---
HISTORY: CHF. COMPARISON: 05/31/2017 TECHNIQUE: Chest PA and lateral FINDINGS: LUNGS: Pulmonary vascular congestion. No focal abnormalities PLEURA: No significant pleural effusion identified. No pneumothorax apparent. CARDIOVASCULAR: Cardiomegaly, mild CHF OSSEOUS STRUCTURES: No significant abnormalities. VISUALIZED UPPER ABDOMEN: Normal. OTHER FINDINGS: None. IMPRESSION: Mild CHF. Similar findings identified on the prior study.
--- NOTE | 2017-06-03 21:43 | PN ---
DATE: 06/03/2017 PULMONARY PROGRESS NOTE REFERRING PHYSICIAN: Cody Aguilar MD SUBJECTIVE: He is out of bed to chair. Night was unremarkable. He has mild cough and shortness of breath. No nausea. No vomiting. No diarrhea. No leg pain or leg swelling. OBJECTIVE: GENERAL: In no acute distress. VITAL SIGNS: Temperature is 98, heart rate is 77, respiratory rate is 20, blood pressure is 131/64 and pulse oximetry 93% on 2 L nasal cannula. HEENT: Moist mucous membranes. Crowded airway. NECK: Supple. No JVD. LUNGS: Has a few rhonchi. HEART: S1 and S2. ABDOMEN: Soft and nontender. No organomegaly. EXTREMITIES: There is no edema. NEUROLOGIC: Awake and alert, follows simple commands. MEDICATIONS: He is on Aricept 5 mg at bedtime, DuoNeb q. 6 hours, Levaquin 750 mg q. 48 hours, Norvasc 10 mg daily, promethazine DM 5 mL q.4 hours p.r.n., Protonix 40 mg daily, IV fluid half normal saline 70 mL per hour, Solu-Medrol 40 mg q.12 hours, Tylenol p.r.n., Xanax 0.5 mg daily p.r.n., and Zofran p.r.n. basis. LABORATORY DATA: Reviewed and noted no new lab is available since yesterday. Microbiology; blood cultures have been negative. He had a chest x-ray done today, which shows mild congestion, similar finding identified on the prior study. IMPRESSION AND PLAN: Chronic obstructive lung disease, hypertension, benign prostatic hyperplasia, dementia, history of cardiac diastolic dysfunction, oropharyngeal dysphagia, may have sleep apnea syndrome, renal insufficiency. Pulmonary point of view, doing okay. We will decrease Solu-Medrol to 20 q.12 hours. Continue inhaled bronchodilator. Continue antihypertensive medication. Follow up electrolytes, fall precautions, stop fluids. Thank you and we will follow with you. Dl Lynch MD
--- NOTE | 2017-06-04 00:07 | CON ---
DATE: HISTORY OF PRESENT ILLNESS: This is an 87-year-old male with past medical history of COPD, hypertension, chronic dementia, came to hospital with pain in the abdomen and shortness of breath, possibly COPD exacerbation. PAST MEDICAL HISTORY: Hypertension. ALLERGIES: NO KNOWN DRUG ALLERGIES. SOCIAL HISTORY: Does not smoke and does not drink. PHYSICAL EXAMINATION HEENT: Normocephalic and atraumatic. NECK: Supple. NEUROLOGIC: Awake and oriented to self and place, not to the time. Cranial nerves II through XII are tested. Pupils are reactive. Spontaneous movement of the extremities noted. Deep tendon reflexes are 1+. Both plantars downgoing. Sensory appears intact. Cerebellar and gait deferred. IMPRESSION AND PLAN: An 87-year-old male who came to the hospital with shortness of breath and multiple medical problems like chronic obstructive pulmonary disease and congestive heart failure, and feeling better. Continue physical therapy and also the patient has mild dementia. The patient is already on Aricept. Continue present management. We will follow up. Randal Jones MD
--- NOTE | 2017-06-04 00:49 | CON ---
DATE: HISTORY OF PRESENT ILLNESS: The patient is 87-year-old male not known previous psychiatric history. The patient has history of dementia, multiple medical issues including COPD, TIA, osteoarthritis, pneumonia. The patient was brought in by his family for evaluation of left-sided shoulder pain as well as cough as well as chest pain. Psych consult was called for evaluation of possible delirium as well as dementia. The patient was seen and examined with nurse who is Syriac-speaking the patient was observed eating seems to have very good appetite, ate 100% of his meal, eat independently the patient daughter Savannah next to him. The patient gave consent to talk to her. The patient reported that he feels better. Chest pain is resolved, but the patient reported still having right shoulder pain and left shoulder pain. The patient said that he feels much better. The patient denied he is feeling depressed. Denied thoughts of harming himself or others. Denied intent or plan. The patient has forgetfulness no psychosis. No psychotic symptoms reported or observed collateral information were obtained from the from the patient's daughter Savannah Nuñez said at present moment, the patient will set his baseline, looks much better than he was before, expressed no concerns. No history of mental illness. No suicidal attempts in the past. The patient is functioning at his baseline. PHYSICAL EXAMINATION: VITAL SIGNS. Reviewed. Vital signs seems to be stable. Temperature 98.4, pulse is 77, blood pressure 131/64, respiration 20 and oxygen saturation is 93. MEDICATIONS: Reviewed. Tylenol, DuoNeb, Xanax, Norvasc, Aricept, Levaquin, Solu-Medrol, Zofran, Protonix, Phenergan, and sodium chloride. LABORATORY DATA: Reviewed. WBC cells 13.3, hemoglobin and hematocrit 11.5 and 34.8. Coagulation reviewed. Chemistry reviewed. MENTAL STATUS EXAMINATION: The patient appears at his chronological age. Fair eye contact. Speech is under productive. The patient does not know the date, but knows that he is in the hospital, aware why he came to the hospital. Mood described "I feel better." Affect was reactive, mood congruent. Thought process was coherent and goal directed, but at times circumstantial. Thought content, the patient denied visual, auditory,or tactile hallucinations. Denied paranoid ideation. The patient denied thoughts of harming himself or others. Denied intent or plan. Insight and judgment seems to be improving. Impulses are well controlled. IMPRESSION: As per history, Alzheimer's dementia the patient does not have any hallucinations or aggression or agitation. PLAN: Continue current management. Continue current medications. The patient does not have any signs of agitation or aggression or delirium. This narrative writer will follow up on this patient tomorrow to make sure that the patient has stable improvement. This narrative writer educated the patient daughter about POA. The patient seems to be demented and his condition is going to be only worsening. The patient's family should be proactive and obtain POA legal form, whoever the patient wants to be power of import export coordinator. Thank you very much for letting me participate in care of your patient. Should you have any questions give me a call back. Thank you very much. Rubi Weaver MD
[2017-06-04] MEDS: Albuterol-Ipratrop 3 mg / 0.5 (3 ml) UD IH SCH ×4 (01:46→20:52)
[2017-06-04 08:21] LABS: ALB/GLOB RATIO 1.2 (1.1-1.8); BILIRUBIN,TOTAL 0.4 mg/dL (0.2-1.3); CALCIUM 7.5 mg/dL (8.4-10.5); POTASSIUM 4.5 mmol/L (3.6-5.0); TOTAL PROTEIN 6.1 g/dL (5.8-8.3)
[2017-06-04] MEDS: Pantoprazole 40 mg EC Tab PO SCH (10:29)
[2017-06-04] MEDS: MethylPREDNISolone 40 mg Vial IVP SCH ×2 (10:29→21:37)
--- NOTE | 2017-06-04 18:21 | PN ---
DATE: FOLLOWUP NOTE SUBJECTIVE: The patient is an 87-year-old male with reported history of Alzheimer's dementia. The patient was seen initially yesterday. Today, this continuity writer is following the patient up. Please see initial consultation for more detailed information. The patient presented to be at his baseline as per family. As per staff, the patient slept well, no behavioral disturbances, has good appetite and sleep. Vital signs are stable. Medications reviewed. Labs reviewed. Microbiology reviewed. Had prolonged conversation with the primary care physician, Dr. Aguilar, discussed POA in the future. MENTAL STATUS EXAMINATION: The patient seems to be in happy mood, intermittent eye contact. The patient seems to have basic understanding of [place], but this continuity writer utilized staff for translation. The patient reported his mood is happy, affect reactive, mood congruent. Thought process concrete, at times confabulating. Thought content, the patient denied any psychotic symptoms, denied paranoid ideations. The patient does not present to be psychotic. The patient adamantly denied thoughts of harming himself or others. Insight and judgment seem to be impaired, which is chronic due to Alzheimer's dementia. Impulses are well controlled. IMPRESSION: The patient has Alzheimer's dementia without behavioral disturbances. PLAN: Continue current management. Continue current medications. The patient's family was advised to obtain power of disability attorney because right now, the patient would be able to point the family members whom he wants to be his POA. Had prolonged conversation with the patient's daughter yesterday. Please see initial consultation for more detailed information. Should you have any questions, give me a call back. Meanwhile, this continuity writer will sign off from this case. Rubi Weaver MD
--- NOTE | 2017-06-04 22:43 | PN ---
DATE: 06/04/2017 PULMONARY PROGRESS NOTE REFERRING PHYSICIAN: Cody Aguilar MD SUBJECTIVE: He is lying in the bed at 45 degrees, feels okay. He still has some cough and sputum. No nausea. No vomiting. No diarrhea. No leg pain or leg swelling. OBJECTIVE: GENERAL: In no acute distress. VITAL SIGNS: Temperature is 98, heart rate is 80, respiratory rate is 20, blood pressure is 141/60, and pulse oximetry is 94% on nasal cannula. HEENT: Moist mucous membranes. Crowded airway. Mallampati score is IV. NECK: Supple. No JVD. LUNGS: Has scattered rhonchi and few crackles. HEART: S1 and S2. ABDOMEN: Soft and nontender. No organomegaly. EXTREMITIES: No edema. NEUROLOGIC: Awake and alert, follows simple commands. MEDICATIONS: He is on Aricept 5 mg at bedtime, DuoNeb q.6 hours, Levaquin 750 mg q.48 hours, Norvasc 10 mg daily, Phenergan DM 5 mL q.4 hours p.r.n., Protonix 40 mg daily, Solu-Medrol 20 mg q.12 hours, Tylenol p.r.n., Xanax 0.5 mg daily, and Zofran p.r.n. basis. LABORATORY DATA: Shows hemoglobin 11.5, hematocrit 34.8, WBC 11.3, and platelets 236. Sodium 141, potassium 4.5, chloride 108, bicarbonate 23, BUN 41, creatinine 1.6, glucose 112, calcium 7.5, AST 32, ALT 29, alkaline phosphatase is 70, and albumin is 3.3. Microbiology: Blood cultures have been negative. Chest x-ray done yesterday shows still have mild congestion. IMPRESSION AND PLAN: Chronic obstructive lung disease, hypertension, benign prostatic hyperplasia, dementia, cardiac diastolic dysfunction, oropharyngeal dysphagia, may have sleep apnea syndrome. Pulmonary point of view, doing okay. Continue IV inhaled bronchodilator. Cared for with IV fluids. Combination of chronic lung disease with diastolic heart failure. Sleep apnea precaution. Keep head at 45 degrees. Thank you and we will follow with you. Dl Lynch MD [facility] # [id number]
--- NOTE | 2017-06-05 01:03 | PN ---
DATE: 06/04/2017 SUBJECTIVE: The patient is comfortable. No distress. He is quite. No distress. No behavior changes. Seen by psychiatrists and still on steroids. PHYSICAL EXAMINATION: VITAL SIGNS: Temperature 98.2, heart rate 82, blood pressure 131/64, respirations 18, saturating 95% on room air. HEAD AND NECK: Normal. No JVD. No thyromegaly. CHEST: Clear with good air entry. CARDIAC: First sound and second sound normal. ABDOMEN: Soft, nontender. EXTREMITIES: No edema. NEUROLOGIC: Normal. LABORATORY DATA: Sodium 141, potassium 4.5, chloride 108, bicarbonate 23, BUN 41, creatinine 1.6, blood sugar 112, calcium 7.5. CBC; white count 13.3, hemoglobin 11.5, hematocrit 34.8, platelets 236. IMPRESSION: 1. Acute chronic obstructive pulmonary disease exacerbation, seems clinically better. Steroids have been decreased. The patient is doing well. Continue inhaled bronchodilators and I will followup clinically. 2. Hypertension. Continue Norvasc 10 mg. 3. Dementia with some behavioral changes. Continue Aricept. Seen by psychiatrist. Continue Xanax. The psychiatrist discussed with the patient about next to kin, the decision making and and discussed with her about the next step for her decision making. 4. The patient also with general weakness. We will continue physical therapy. May benefit from TCU. Continue GI and deep venous thrombosis prophylaxis. Lovenox and Protonix and will continue current care. 5. Acute renal failure. We will continue IV fluids. Followup with nephrology consult. Creatinine is now at 1.6. Cody Aguilar MD
--- NOTE | 2017-06-05 01:32 | PN ---
DATE: 06/03/2017 SUBJECTIVE: The patient is a little bit confused, but otherwise he recognized me. He responds properly. No respiratory distress at this time. PHYSICAL EXAMINATION: VITAL SIGNS: Temperature is 98.4, heart rate 77, blood pressure 131/64, respirations 20, saturation 93% on 2 liters. HEAD AND NECK: Normal. No JVD. No thyromegaly. CHEST: Clear, good air entry. CARDIAC: First sound and second sound are normal. ABDOMEN: Soft and nontender. EXTREMITIES: No edema. NEUROLOGIC: Normal. LABORATORY DATA: Sodium 140, potassium 3.8, chloride 103, bicarbonate 20, BUN 39, creatinine is 2. ASSESSMENT AND PLAN: 1. Acute chronic obstructive pulmonary disease exacerbations. Continue steroids IV. Patient seems looking better, continue Levaquin 750 mg every 2 days, continue nebulizers treatment. 2. Dementia with some behavioral changes. We will get a Psychiatry consult. We will follow up on them. Continue Aricept for now and Xanax p.r.n. 3. Dementia, continue Aricept. 4. Hypertension, Norvasc 10 mg daily. PLAN: Continue gastrointestinal and deep vein thrombosis prophylaxis. Follow up clinically. Patient may need rehabilitations. Cody Aguilar MD
[2017-06-05] MEDS: Albuterol-Ipratrop 3 mg / 0.5 (3 ml) UD IH SCH ×4 (03:10→22:00)
[2017-06-05] MEDS: levoFLOXacin 750 mg in D5W 150 ML BAG IVPB SCH (10:37)
[2017-06-05] MEDS: Enoxaparin 40 mg Syringe SC SCH (10:37)
[2017-06-05] MEDS: MethylPREDNISolone 40 mg Vial IVP SCH (10:38)
[2017-06-05] MEDS: Pantoprazole 40 mg EC Tab PO SCH (10:41)
--- NOTE | 2017-06-05 19:53 | PN ---
DATE: SUBJECTIVE: The patient seems doing better. He is comfortable, lying in bed, feels weak, but otherwise no new complaints. PHYSICAL EXAMINATION: VITAL SIGNS: Temperature 98, heart rate 81, blood pressure 148/66, respirations 20, and saturation 93% on nasal cannula. HEAD AND NECK: Normal. No JVD. No thyromegaly. CHEST: Clear. Good air entry. CARDIAC: First sound and second sound normal. ABDOMEN: Soft and nontender. EXTREMITIES: No edema. NEUROLOGIC: Nonfocal. Move all extremities respond well. Neurologically normal except dementia. LABORATORY DATA: The patient last lab shows BUN 41 and creatinine 1.6. Sodium 141, potassium 4.5, chloride 108, and bicarbonate 23. Liver enzymes seems normal. IMPRESSION AND PLAN: 1. Acute chronic obstructive pulmonary disease exacerbation. Continue IV steroids, continue inhaled bronchodilators. The patient is also getting Levaquin, problem with the IV site, we will switch Levaquin to p.o. and we will switch Solu-Medrol to p.o. prednisone . The patient may transferred to TCU if bed available. We will discuss with the medical team in the morning. 2. Dementia. Continue Aricept. 3. Hypertension. Continue Norvasc 10 mg. 4. Acute worsening of kidney functions. Repeat lab in the morning. Follow up with the Nephrology. Continue current therapy. Cody Aguilar MD
--- NOTE | 2017-06-05 23:31 | PN ---
PULMONARY PROGRESS NOTE DATE: 06/05/2017 REFERRING PHYSICIAN: Cody Aguilar MD SUBJECTIVE: He is lying in the bed, sleepy, arousable, family is at the bedside, feels better, still has some cough and sputum. No nausea. No vomiting, diarrhea, leg pain or leg swelling. PHYSICAL EXAMINATION: GENERAL: In no acute distress. VITAL SIGNS: Temperature is 98, heart rate is 66, respiratory rate is 20, blood pressure is 130/45, and pulse oximetry is 93% on 2 L nasal cannula. HEENT: Moist mucous membranes. Crowded airway. Mallampati score is IV. NECK: Supple. No JVD. LUNGS: Has scattered rhonchi and few wheezing. HEART: S1 and S2. ABDOMEN: Soft and nontender. No organomegaly. EXTREMITIES: No edema. NEUROLOGIC: Sleepy and arousable. Follows simple command. MEDICATIONS: He is on Aricept 5 mg at bedtime, DuoNeb q.6 hours, Levaquin 750 mg and Monday, Lovenox 40 mg subcutaneously daily, Norvasc 10 mg daily, promethazine 5 mL q.4 hours p.r.n., prednisone 30 mg daily, Protonix 40 mg daily, Tylenol p.r.n., Xanax 0.5 mg daily p.r.n., and Zofran p.r.n. basis. LABORATORY DATA: Reviewed and noted. No new lab since yesterday reported. IMPRESSION AND PLAN: Chronic obstructive lung disease, hypertension, benign prostatic hyperplasia, dementia, cardiac diastolic dysfunction, oropharyngeal dysphagia, and may have sleep apnea syndrome. Pulmonary point of view, doing okay. Continue bronchodilator. Keep head at 45 degrees. Watch kidney function closely. Does have chronic renal insufficiency in the past. Avoid sedation. Follow up labs in the morning. Thank you and we will follow with you. Dl Lynch MD
[2017-06-06] MEDS: Promethazine DM 6.25 mg-15 mg/5 ml Syrup PO PRN (00:35)
[2017-06-06] MEDS: Albuterol-Ipratrop 3 mg / 0.5 (3 ml) UD IH SCH ×3 (03:10→14:50)
[2017-06-06 08:22] LABS: ALB/GLOB RATIO 1.1 (1.1-1.8); ALKALINE PHOSPHATASE 67 U/L (38-126); ALT/SGPT 71 U/L (7-56); AST/SGOT 55 U/L (17-59); BILIRUBIN,TOTAL 1.1 mg/dL (0.2-1.3); BLOOD UREA NITROGEN 27 mg/dL (7-21); CALCIUM 8.1 mg/dL (8.4-10.5); CARBON DIOXIDE 27 mmol/L (21-33); CHLORIDE 108 mmol/L (98-107); GFR AFRICAN-AMERICAN > 60; GLUCOSE,RANDOM 89 mg/dL (70-110); POTASSIUM 3.8 mmol/L (3.6-5.0); SODIUM 142 mmol/L (132-148); TOTAL PROTEIN 6.2 g/dL (5.8-8.3)
[2017-06-06] MEDS: Enoxaparin 40 mg Syringe SC SCH (09:15)
[2017-06-06] MEDS: Pantoprazole 40 mg EC Tab PO SCH (09:15)
[2017-06-06] MEDS ORDERED: levoFLOXacin 750 MG TAB PO SCH (10:00)
--- NOTE | 2017-06-06 12:43 | US ---
HISTORY: Leg pain and swelling. Evaluate for DVT PHYSICIAN(S): Antony Alex MD. TECHNIQUE: Duplex sonography and color-flow Doppler with graded compression were used to evaluate the deep venous systems of both lower extremities. FINDINGS: The visualized deep venous systems of both lower extremities are sonographically normal and compressible. Normal wave forms and augmentation are seen. There is no sonographic evidence for deep venous thrombosis in the visualized segments of both lower extremities. IMPRESSION: No sonographic evidence for deep venous thrombosis in the visualized segments of both lower extremities.
[2017-06-06 16:22] VITALS: BP 145/62; PULSE 70; RESP 18; TEMP 98; O2SAT 97
--- NOTE | 2017-06-06 21:08 | CON ---
DATE: 06/06/2017 The patient admitted for Dr. Aguilar. REFERRING MD: Cody Aguilar MD REASON FOR CONSULTATION: Evaluation of the patient unknown to me, who presented with an elevated BUN and creatinine during the hospitalization likely related to volume and steroids. We were asked to evaluate for his abnormal renal parameters. HISTORY OF PRESENT ILLNESS: The patient is a pleasant 87-year-old male with an apparent history of hypertension, history of dementia, history of COPD, history of LVH and history of anemia. The patient was admitted to the hospital with increasing shortness of breath, possible pneumonitis and possible CHF. The patient was initially treated with IV diuretic therapy. He was felt to have had a COPD exacerbation and treated with IV steroids currently on oral steroids. The patient's BUN and creatinine had risen to as high as 41 for his BUN and creatinine of 2.0. Repeat values today showed BUN of 27 and a creatinine of 1.1. The patient had been on IV fluid hydration to an early part of the hospitalization as oral intake was poor. Currently, his BUN is down to 27 with a creatinine of 1.1. His baseline BUN is less than 23, creatinine of less than 1. According to staff on 3R, the patient is remaining well-hydrated with oral hydration. His IV had fallen out and he is scheduled for a TCU transfer perhaps as early as tomorrow. We are asked to evaluate the patient for his elevated BUN and creatinine to comment on whether or not the patient requires further IV fluid hydration. PAST MEDICAL HISTORY: Significant for hypertension, dementia, history of COPD, history of LVH, history of anemia. No past history of chronic kidney disease. MEDICATIONS AT HOME: Are unobtainable. MEDICATIONS PRESENTLY IN HOSPITAL: Include that of Aricept, DuoNeb, Levaquin every other day, Lovenox, Norvasc, Phenergan DM, prednisone, Protonix, Tylenol p.r.n., Xanax p.r.n., and Zofran p.r.n. ALLERGIES: THE PATIENT HAS NO KNOWN ALLERGIES TO MEDICATIONS. SOCIAL HISTORY: Past history of cigarettes. Occasional alcohol drinker. FAMILY HISTORY: Noncontributory and unobtainable. REVIEW OF SYSTEMS: Because of the patient's language barrier, it is significantly limited. GENERAL: No apparent weight loss or loss of appetite. ENT: No hearing or visual problems. PULMONARY: Shortness of breath and COPD as noted above. CARDIAC: No known history of coronary artery disease. GI: No nausea, vomiting, diarrhea, constipation, abdominal pain or diarrhea. : No history of chronic kidney disease. No history of UTIs. No history of prostate disease. ENDOCRINE: No history of diabetes. MUSCULOSKELETAL: No issues. NEURO: No past history of CVA. HEME/ONC: Mild anemia as noted above. PSYCHIATRIC HISTORY: Apparently is negative. PHYSICAL EXAMINATION GENERAL: The patient is currently seen on 3R, lying comfortable supine in bed drinking fluids. VITAL SIGNS: Blood pressure is ranging from 148-161 systolic, diastolics ranging from 66-81. Temperature 98.6. Respiratory rate is 22 with a pulse of 65. Oxygen saturations are 95%. HEENT: Shows him to be normocephalic and atraumatic. Conjunctivae are pink. Sclerae nonicteric. Pupils equal, reactive to light and accommodation. Extraocular muscles are intact. Posterior pharynx appears normal. NECK: Supple. No neck vein distention or thyromegaly. No lymphadenopathy. No bruits. CHEST: Clear to auscultation and percussion. No rales or rhonchi or wheezing. CARDIOVASCULAR: Shows a regular rate and rhythm without audible murmurs, rubs or gallops. ABDOMEN: Soft. Bowel sounds normal. No rebound or guarding. No masses. EXTREMITIES: Show no lower extremity cyanosis, clubbing or edema. Distal lower extremity pulses are 1 to 2+ bilaterally. NEURO: Difficult to assess because of language barrier, but no gross focal motor or sensory deficits noted. IMAGING STUDIES: Admitting chest x-ray showed possible pneumonia. Followup chest x-ray showed perhaps mild CHF. Ultrasound of his lower extremity showed no evidence for DVT. Echocardiogram showed an ejection fraction of 63% with mild LVH and normal LV function. LABORATORY DATA: CBC, white blood cell count 13.3 with a hemoglobin of 11.5. Perhaps elevation of white blood cell count is secondary to steroids. Platelet count is normal 236,000. Coags are normal. Chemistries showed normal electrolytes. BUN on admission was 18, it went as high as 41, it is currently 27. Creatinine was 1.2 on admission, it went as high as 2.0, it is currently 1.1. Baseline BUN is less than 20. Baseline creatinine is less than 1.0. Glucose is 89. Calcium 8.1 with an albumin of 3.3, corrects to normal. Liver enzymes show mild elevation of his ALT at 71. BNP on admission was 520. No urine is available for comment. ASSESSMENT: 1. Acute renal failure in a patient with no past history of chronic kidney disease. Baseline BUN is less than 20. Baseline creatinine is less than 1.0. This is all likely secondary to volume depletion associated with diuretic therapy during the early part of his hospitalization and perhaps exacerbation from IV Solu-Medrol, currently on oral steroids for chronic obstructive pulmonary disease. In terms of whether or not IV fluids need to be restarted, it appears that the patient's BUN and creatinine are falling toward baseline levels with oral hydration alone. Will need to obtain accurate I's and O's. I have encouraged the patient to continue drinking fluids. I have encouraged the staff to continue to push oral fluids. The patient does not require an IV to be replaced as is IV had been removed. We will try and obtain a urinalysis. His BUN and creatinine should elevate again, I will obtain a renal ultrasound. 2. History of dementia. The patient will continue on present medication. 3. History of chronic obstructive pulmonary disease with exacerbation. Continue inhalation therapy and taper steroids. 4. History of hypertension. Blood pressure is controlled on present medical therapy, will continue calcium channel lloyd therapy and if necessary we can start angiotensin receptor lloyd therapy for better blood pressure control. 5. History of mild left ventricular hypertrophy, possibly secondary to hypertension. 6. History of mild anemia likely hemodilution. Hemoglobin on admission was normal. 7. History of possible bronchitis/pneumonia. The patient will complete a course of Levaquin therapy. PLAN: 1, Agree with tentative transfer to the TCU tomorrow. 2. The patient does not require IV fluid hydration as is oral intake appears to have improved. 3. Continue to hold diuretic therapy. 4. Taper steroids. 5. Daily labs and accurate I's and O's while on acute care. Thank you for letting me partake and share in the care of your patient. Jonah Gramajo MD
--- NOTE | 2017-06-08 02:19 | DS ---
HISTORY OF PRESENT ILLNESS: This is an 87-year-old male, who was admitted with acute COPD exacerbation, questionable CHF, but the patient improved with IV steroids, IV nebulizer treatment, pulmonary consult with Dr. Lynch, the patient seems improved indeed, however, his creatinine went up without any Lasix and BUN and creatinine went up, Renal consult was called with Dr. Gramajo. The patient was started on IV fluid. Creatinine went down a little bit, but came high. The patient has no chest pain and has no other complaints. With IV hydration, the patient improved, creatinine was 2 and went down to 1.6 and was hydrated and went down to 1.1. PHYSICAL EXAMINATION: HEAD AND NECK: Normal. No JVD. No thyromegaly. CHEST: Diminished breath sounds, but clear. CARDIAC: First sound and second sound normal. ABDOMEN: Soft, nontender. EXTREMITIES: There is no edema. NEUROLOGIC: The patient has significant dementia, but he remembers me and moves all extremity. HOSPITAL COURSE: During the hospital course, the patient improved, seen by Pulmonary, Dr. Lynch and Renal consultations, was also seen by psychiatrist, Dr. Venegas the patient is a full code at this time. The patient also had seen by Neurology, Dr. Jones, because of change in mental status and dementia and seems stable. The patient seems stable at this time with the current therapy, will go to TCU for physical therapy and monitoring his condition. PHYSICAL EXAMINATION: VITAL SIGNS: Temperature is 98, heart rate 70, blood pressure 145/62, respiration 18, and saturation 97%. HEAD AND NECK: Head and neck exam normal. No JVD. No thyromegaly. CHEST: Clear, good air entry. CARDIAC: First sound and second sound normal. ABDOMEN: Soft, nontender. EXTREMITIES: No edema. NEUROLOGIC: He moves all extremities, he has baseline dementia. DISCHARGE DIAGNOSES: 1. Acute chronic obstructive pulmonary disease exacerbation. 2. Acute renal failure. 3. Generalized weakness and deconditioning. 4. Mild congestive heart failure, BNP is 520, improved. 5. Hypertension. 6. Hypercholesterolemia. 7. Dementia. 8. History of CVA. 9. Continue current therapy. 10. Transfer the patient to TCU. CURRENT MEDICATIONS: Aricept, DuoNeb, Levaquin 750 mg every 48 hours, Lovenox for DVT prophylaxis, Norvasc 10 mg daily, Promethazine DM, prednisone will be tapered down 20 mg, pantoprazole 40 mg, Tylenol, Xanax 0.5 mg p.o. daily, and Zofran 4 mg IV q. 6 p.r.n. Continue current therapy. Cody Aguilar MD [facility] # [id number]
== END 2017-06-06 17:31 | DRG 191 ==
LOC: ED 22:17 → ERH 06-01 00:51 → 3RNO 06-01 02:40 → OBSVTOIN 06-02 12:40
PROVIDERS: ADMIT Internal Medicine; ATTEND Internal Medicine
PROC: 3E0F7GC Introduction of Other Therapeutic Substance into Respiratory Tract, Via Natural or Artificial Opening (ICD-10-PCS; principal; 2017-06-01)
DX: J44.1 Chronic obstructive pulmonary disease with (acute) exacerbation (principal); N17.9 Acute kidney failure, unspecified; I13.0 Hypertensive heart and chronic kidney disease with heart failure and stage 1 through stage 4 chronic kidney disease, or unspecified chronic kidney disease; I50.30 Unspecified diastolic (congestive) heart failure; R13.12 Dysphagia, oropharyngeal phase; D64.9 Anemia, unspecified; G30.9 Alzheimer's disease, unspecified; F02.80 Dementia in other diseases classified elsewhere, unspecified severity, without behavioral disturbance, psychotic disturbance, mood disturbance, and anxiety; E78.00 Pure hypercholesterolemia, unspecified; N18.9 Chronic kidney disease, unspecified; G89.4 Chronic pain syndrome; N40.0 Benign prostatic hyperplasia without lower urinary tract symptoms; F17.210 Nicotine dependence, cigarettes, uncomplicated; Z87.01 Personal history of pneumonia (recurrent); Z86.73 Personal history of transient ischemic attack (TIA), and cerebral infarction without residual deficits; Z79.899 Other long term (current) drug therapy

== ENCOUNTER 2017-06-06 16:48 | Inpatient (IN) | payer MEDICARE, MEDICAID ==
[2017-06-06 18:05] VITALS: BMI 20.8
[2017-06-06] MEDS ORDERED: Sodium Chloride 0.45% 1,000 ML IV SCH (18:30)
[2017-06-06] MEDS: Albuterol-Ipratrop 3 mg / 0.5 (3 ml) UD IH SCH (20:04)
[2017-06-07] MEDS: Albuterol-Ipratrop 3 mg / 0.5 (3 ml) UD IH SCH ×4 (01:31→20:31)
--- NOTE | 2017-06-07 02:29 | CON ---
DATE: 06/06/2017 REASON FOR CONSULTATION: Cough and shortness of breath. HISTORY OF PRESENT ILLNESS: This is an 87-year-old gentleman who is known to me from acute side of the hospital where he was admitted with cough and shortness of breath. 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 He is presently admitted TCU for continued care. He is lying in the bed, feels better and some cough and short of breath. No nausea, no diarrhea, leg pain or leg swelling. PAST MEDICAL HISTORY: As per history present illness. ALLERGIES: NONE KNOWN. SOCIAL HISTORY: He is a smoker. Denies any alcohol use. No significant cardiopulmonary disease reported. MEDICATIONS: He is on Aricept 5 mg at bedtime, albuterol and Atrovent nebulizer q. 6 hours., and Levaquin 750 mg Monday and Monday. Lovenox 40 mg subcutaneous daily, Norvasc 10 mg daily, Phenergan DM q. 4 hours. p.r.n., prednisone 30 mg daily, Protonix 40 mg daily, IV fluid, half normal saline 70 mL per hour, Tylenol p.r.n., Xanax 0.5 mg daily p.r.n., and Zofran p.r.n. basis. REVIEW OF SYSTEMS: No headache or rhinitis. Had some cough and shortness of breath. No nausea, no vomiting and no diarrhea. No leg pain or leg swelling. PHYSICAL EXAMINATION: GENERAL: Lying in the bed, in no acute distress. VITAL SIGNS: Temperature is 98, heart rate is 70, respiratory is 20, blood pressure is 145/62, and pulse oximetry of 97% on 2 liters nasal cannula. HEENT: Moist mucous membranes. Crowded airway. Mallampati score is 4. NECK: Supple. No JVD. Lungs: Has a basilar crackles and scattered rhonchi. HEART: S1 and S2. GASTROINTESTINAL: Abdomen is soft and nontender. No organomegaly. EXTREMITIES: No edema. NEUROLOGIC: Awake and follows simple commands. LABORATORY DATA: Shows hemoglobin of 11.5 and hematocrit of 34.8. Sodium of 142, potassium of 3.8, chloride of 108, bicarbonate of 27, BUN of 27, and creatinine of 1.1. Glucose of 89, calcium is 8.1. AST of 55, ALT of 71, and alkaline phosphatase is 67. Albumin is 3.3. Microbiology: Blood cultures are negative. DIAGNOSTIC DATA: Extremity ultrasound done yesterday shows no DVT. IMPRESSION AND PLAN: Chronic obstructive lung disease, hypertension, benign prostatic hypertrophy, dementia, chronic diastolic dysfunction, oropharyngeal dysphagia, may have a sleep apnea syndrome, and renal insufficiency. Pulmonary point of view, he is doing okay. Continue p.o. and inhaled bronchodilator, gastric prophylaxis, CT of the lower extremity. Fall precaution and careful with sedation. Discontinue intravenous fluids. Out of bed to chair and physical therapy. Thank you and we will follow with you. Dl Lynch MD
[2017-06-07] MEDS: Pantoprazole 40 mg EC Tab PO SCH (06:08)
[2017-06-07 06:41] LABS: BASO # 0.08 K/mm3 (0.0-2.0); BASO % 0.4 % (0.0-3.0); GRAN # 17.75 (1.4-6.5); GRAN % 83.2 % (50.0-68.0); HEMOGLOBIN 12.9 g/dL (14.0-18.0); LYMPH # 2.3 (1.2-3.4); LYMPH % 10.8 % (22.0-35.0); MEAN CELL VOLUME 84.7 fl (80.0-105.0); MEAN CORPUSCULAR HEMOGLOBIN 28.7 pg (25.0-35.0); MEAN CORPUSCULAR HGB CONC 33.9 g/dl (31.0-37.0); MEAN PLATELET VOLUME 10.1 fl (7.0-11.0); MONO # 1.2 (0.1-0.6); MONO % 5.6 % (1.0-6.0); RBC 4.5 10^6/uL (3.5-6.1); RED CELL DISTRIBUTION WIDTH 14.7 % (11.5-14.5); WHITE BLOOD COUNT 21.4 10^3/ul (4.5-11.0)
[2017-06-07 07:36] LABS: ALB/GLOB RATIO 1.2 (1.1-1.8); ALBUMIN 3.4 g/dL (3.0-4.8); ALT/SGPT 74 U/L (7-56); AST/SGOT 51 U/L (17-59); BLOOD UREA NITROGEN 24 mg/dL (7-21); GFR AFRICAN-AMERICAN > 60; GFR NON-AFRICAN AMERICAN > 60
[2017-06-07] MEDS: Enoxaparin 40 mg Syringe SC SCH (10:59)
[2017-06-07] MEDS: Promethazine DM 6.25 mg-15 mg/5 ml Syrup PO PRN ×2 (10:59→21:56)
--- NOTE | 2017-06-07 13:10 | PN ---
DATE: SUBJECTIVE: The patient is currently seen in the TCU. He was transferred yesterday. He is sitting up in bed eating lunch. He appears to be in no acute distress. His BUN and creatinine have fallen to 24 at 1.1, which are very close to his baseline range. MEDICATIONS: Medication list reviewed. The patient is currently on Aricept, DuoNeb, Levaquin, Lovenox, Norvasc, Phenergan, p.o. prednisone, Protonix, Tylenol, Xanax p.r.n., and Zofran p.r.n. OBJECTIVE: VITAL SIGNS: Blood pressure ranging from 145-161 systolic, diastolics ranging from 62-70. Pulse 56, temperature 98.4, respiratory rate is 18 with an oxygen saturation of 96%. HEENT: Shows him to be normocephalic, atraumatic. Conjunctivae are pink. Sclerae are nonicteric. NECK: Supple. No neck vein distention. CHEST: Coarse upper airway breath sounds with scattered rhonchi. No rales or wheezing. CARDIOVASCULAR: Regular rate and rhythm without audible murmurs, rubs or gallops. ABDOMEN: Soft. Bowel sounds normal. No rebound or guarding. No masses. EXTREMITIES: Show no lower extremity cyanosis, clubbing or edema. LABORATORY DATA AND IMAGING STUDIES: Labs today, white blood cell count up to 21.4, perhaps a steroid effect. Hemoglobin 12.9, platelet count is 259,000. Chemistry showed normal electrolytes today. BUN is down to 24 from a high of 41. Creatinine is down to 1.1 from a high of 2.0. The patient's baseline BUN is less than 20. His baseline creatinine is less than 1. Microbiology, all cultures were negative. ASSESSMENT: 1. Acute renal failure superimposed on the patient who has no past history of chronic kidney disease. Baseline BUN less than 20. Baseline creatinine less than 1.0. This is all felt to be volume depletion, perhaps with exacerbation from steroid use. The patient has a past history of chronic obstructive pulmonary disease. Urinalysis was requested yesterday but not done. 2. History of dementia. The patient appears stable on current medication. 3. History of chronic obstructive pulmonary disease. Continue present inhalation therapy and taper steroids as quickly as possible. 4. History of hypertension. Blood pressure control is fair. The patient will continue calcium channel lloyd therapy, and he may be started on an angiotensin receptor lloyd as his creatinine is falling to baseline. 5. History of left ventricular hypertrophy secondary to positive hypertension. 6. History of mild anemia, likely hemodilution. Hemoglobin today is acceptable at 12.9. 7. History of bronchitis/pneumonia. The patient will complete a course of oral Levaquin therapy. PLAN: 1. Continue rehabilitation in the TCU. 2. Continue to monitor labs over the next 1-2 days once his creatinine and BUN fall back to baseline range. Renal followup will discontinue. 3. Taper steroids as quickly as possible. 4. Perhaps elevated white blood cell count secondary to steroid use. Jonah Gramajo MD
--- NOTE | 2017-06-07 18:50 | CON ---
NEUROLOGY CONSULTATION DATE: 06/07/2017 CHIEF COMPLAINT: Dementia. HISTORY OF PRESENT ILLNESS: An 87-year-old man with past medical history of chronic obstructive lung disease, hypertension, BPH, dementia, chronic diastolic dysfunction, oropharyngeal dysfunction, is currently in TCU for deconditioned state and continued care for his underlying COPD exacerbation. He was consulted for his underlying dementia. He is alert and oriented to person and place, not much of month or year. Recall after 5 minutes is 0/3. Poor attention span and slow thought process, but does follow commands. Moves all extremities. Undergoing physical therapy. His CAT scan initially in the showed no acute intracranial abnormality. He is currently on Aricept for his underlying dementia. He has been managed by Pulmonary. Notes were reviewed and appreciated. PAST MEDICAL HISTORY: As above. SOCIAL HISTORY: No illicit drug use, smoking or EtOH abuse. ALLERGIES: NO KNOWN DRUG ALLERGIES. MEDICATIONS: Reviewed by nurse's reconciliation. REVIEW OF SYSTEMS: A 14-point review of systems in negative as per the HPI. PHYSICAL EXAMINATION VITAL SIGNS: Temperature of 98, pulse rate of 56, blood pressure 160/70, respiratory rate of 18, oxygen saturation 96% on room air. GENERAL: The patient is sitting up in bed, in no acute distress. HEENT: Head is atraumatic and normocephalic. PERRLA. Extraocular muscles intact. NECK: Supple. No JVD. No adenopathy noted. LUNGS: Slightly scattered rhonchi, otherwise clear. HEART: S1 and S2. Normal rate and rhythm. No murmurs, rubs, or gallops. ABDOMEN: Soft, nontender, nondistended. Bowel sounds present. EXTREMITIES: No clubbing, no cyanosis. Peripheral pulses 2+ felt bilaterally. NEUROLOGIC: The patient is alert and oriented to person, place, and year. Recall after 5 minutes is 0/3. Poor attention span and slow thought process. He follows simple commands. Speech is fluent without errors. Cranial nerves II through XII intact. Motor exam, increased tone throughout. Moves all extremities equally. No pronator drift seen. Sensory exam: Light touch, pinprick, proprioception, and vibration intact. DTRs are 1+ throughout. Coordination: [id number]-[id number]-guai intact. Gait is deferred for now. LABORATORY DATA: Sodium is 139, potassium of 3.9, chloride of 104, carbon dioxide of 26, BUN of 24, creatinine of 1.1, random glucose of 95. ASSESSMENT: An 87-year-old man with past medical history of chronic obstructive pulmonary disease, hypertension, benign prostatic hyperplasia, dementia, chronic diastolic dysfunction, has worsening shortness of breath and was managed on medical site, came to the TCU for underlying mild shortness of breath with underlying chronic obstructive pulmonary disease as well as deconditioned state, undergoing Physical Therapy and Occupational Therapy. He was consulted for his dementia. 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 He had fluctuating delirium. At this time, he is stable. RECOMMENDATION: Continue: 1. Aricept 10 mg p.o. daily. 2. Monitor electrolytes and correct accordingly. 3. Xanax p.r.n. for anxiety. 4. Avoid systolic drops in blood pressure and avoid sedative meds. 5. Delirium precautions. 6. Continue with the current present medical management and PT/OT. Thank you for this consult. Lizandro Jones MD
--- NOTE | 2017-06-07 19:43 | PN ---
DATE: 06/07/2017 REFERRING PHYSICIAN: Cody Aguilar MD SUBJECTIVE: He is lying in the bed, sleepy, arousable, family is at the bedside, doing well in therapy, still has mild cough and shortness of breath. No chest pain. No nausea, vomiting, diarrhea. No leg pain or leg swelling. OBJECTIVE: GENERAL: In no acute distress. VITAL SIGNS: Temperature is 98, heart rate is 56, respiratory rate is 18 blood pressure is 161/70 and pulse oximetry 96% on 2 L nasal cannula. HEENT: Moist mucous membranes. Crowded airway. NECK: Supple. No JVD. LUNGS: Have fair airflow with rhonchi. HEART: S1 and S2. ABDOMEN: Soft and nontender. No organomegaly. EXTREMITIES: No edema. NEUROLOGIC: Sleepy, arousable, follows simple commands. MEDICATIONS: He is on Aricept 5 mg at bedtime, DuoNeb q. 6 hours, Levaquin 750 mg 2 times a week, Lovenox 1 mg daily, Norvasc 10 mg daily, Phenergan DM 5 mL q. 4 hours p.r.n., prednisone 30 mg daily, Protonix 40 mg daily, Tylenol p.r.n., Xanax 0.5 mg daily p.r.n., and Zofran p.r.n. basis. LABORATORY DATA: Shows hemoglobin 12.9, hematocrit 38.1, WBC 21,000, and platelet is 259. Sodium 139, potassium 3.8, chloride 104, bicarbonate 26, BUN 24, creatinine 1.1, calcium 8.0, total bili 1.0, AST 51, ALT 74, alkaline phosphatase is 63, and albumin is 3.4. IMPRESSION AND PLAN: Chronic obstructive lung disease, hypertension, benign prostatic hyperplasia, dementia, diastolic cardiac dysfunction, oropharyngeal dysphagia, sleep apnea syndrome, renal insufficiency. Pulmonary point of view, doing okay. I spoke to family at bedside, all the questions answered.. Continue p.o. and inhaled bronchodilator. Gastric prophylaxis. Continue therapy. The patient is asked to stop smoking. Thank you, and we will follow with you. Dl Lynch MD
[2017-06-07] MEDS: Magnesium Hydroxide Susp 30 ml UD PO PRN (21:55)
[2017-06-08] MEDS: Albuterol-Ipratrop 3 mg / 0.5 (3 ml) UD IH SCH ×4 (02:03→20:58)
--- NOTE | 2017-06-08 03:25 | HP ---
HISTORY OF PRESENT ILLNESS: The patient was admitted with acute COPD exacerbations. The patient was treated with IV steroids, seems doing well. The patient developed renal insufficiency, acute renal injury, which is slowly improving. The patient was transferred to TCU for continuation of therapy including physical therapy and rehab. Denied any chest pain, any short of breath, or any nausea or vomiting or diarrhea. PAST MEDICAL HISTORY: As I mentioned, COPD, dementia, hypertension, hypercholesteremia, prostate enlargement, anemia, and renal insufficiency. ALLERGIES: NO KNOWN ALLERGIES. SOCIAL HISTORY: No smoking or drinking. FAMILY HISTORY: Noncontributory. REVIEW OF SYSTEMS: As in the present illness, dementia, chronic gait disorders, dyspnea, and cough. PHYSICAL EXAMINATION: As follows; VITAL SIGNS: Today, temperature 98.4, heart rate 56, blood pressure 161/70, respirations 18, saturation 96% on 2 liters nasal cannula. HEAD AND NECK: Normal. No JVD and no thyromegaly. CHEST: Clear. Good air entry. CARDIAC: First sound and second sound normal. ABDOMEN: Soft, nontender. EXTREMITIES: No edema. NEUROLOGIC: Normal. LABORATORY STUDIES: White count 21,400, hemoglobin 12.9, hematocrit 38.1, platelets 259 with left shift. The patient has chemistry, which is noted; sodium 139, potassium 3.8, chloride 104, bicarb 26, BUN 24, creatinine 1.1, calcium 8. AST is normal, ALT is elevated at 74, alkaline phosphatase 63. IMPRESSION: 1. Generalized weakness, gait disorder. We will continue physical therapy. 2. Acute chronic obstructive pulmonary disease exacerbation. The patient seems doing well. We will continue steroids, continue nebulizer treatment. 3. Hypertension. Continue Norvasc 10 mg daily and follow up clinically. 4. Chronic dementia. Continue Aricept. 5. The patient has possible pneumonia. Continue Levaquin every 48 hours 750 mg. PLAN: Continue current therapy. Continue Xanax p.r.n. for agitations. Continue GI and DVT prophylaxis and physical therapy. Cody Aguilar MD
[2017-06-08] MEDS: Pantoprazole 40 mg EC Tab PO SCH (05:29)
[2017-06-08 06:22] LABS: HEMOGLOBIN 12.3 g/dL (14.0-18.0); MEAN CELL VOLUME 84.2 fl (80.0-105.0); MEAN CORPUSCULAR HEMOGLOBIN 28.6 pg (25.0-35.0); MEAN PLATELET VOLUME 9.6 fl (7.0-11.0); RBC 4.3 10^6/uL (3.5-6.1); RED CELL DISTRIBUTION WIDTH 14.7 % (11.5-14.5); WHITE BLOOD COUNT 16.3 10^3/ul (4.5-11.0)
[2017-06-08 06:28] LABS: ALB/GLOB RATIO 1.1 (1.1-1.8); ALT/SGPT 67 U/L (7-56); AST/SGOT 32 U/L (17-59); BLOOD UREA NITROGEN 20 mg/dL (7-21); CALCIUM 8.1 mg/dL (8.4-10.5); GFR AFRICAN-AMERICAN > 60; GFR NON-AFRICAN AMERICAN > 60; MAGNESIUM 2.3 mg/dL (1.7-2.2)
--- NOTE | 2017-06-08 10:13 | PN ---
DATE: SUBJECTIVE: The patient is currently seen in the TCU, lying comfortable, supine in bed. His BUN and creatinine have fallen back to baseline levels. He appears to be in no acute distress. MEDICATIONS: Medication list reviewed. The patient is currently on Aricept, Colace, DuoNeb, Levaquin, Lovenox, milk of magnesia, Norvasc, Phenergan DM cough syrup p.r.n., prednisone, Protonix, Tylenol, Xanax, and Zofran. OBJECTIVE: VITAL SIGNS: Blood pressure last recorded was 161/70. Temperature 98.4, respiratory rate is 18 with a pulse of 56. HEENT: Normocephalic, atraumatic. Conjunctivae pink. Sclerae nonicteric. NECK: Supple. No neck vein distention. CHEST: Scattered rhonchi. No rales or wheezing. CARDIOVASCULAR: Regular rate and rhythm without audible murmurs, rubs, or gallops. ABDOMEN: Soft. Bowel sounds normal. No rebound, no guarding, no masses. EXTREMITIES: Show no lower extremity cyanosis, clubbing, or edema. LABORATORY DATA AND IMAGING: CBC today white blood cell count down to 16.3 with continued decrease in steroid dose, hemoglobin 12.3, platelet count is 240,000. Chemistries showed normal, BUN 20 with a creatinine of 1.0. Calcium 8.1, phosphorus 3.6 with magnesium level of 2.3. Microbiology, all cultures were negative. ASSESSMENT: 1. Acute renal failure superimposed on a patient with no past history of chronic kidney disease. Baseline BUN is 20 or less. Baseline creatinine is 1.0. This is all felt to be volume depletion and perhaps exacerbation secondary to use of steroids. With adequate hydration and with decreasing of the steroid dose, BUN and creatinine have fallen back to baseline levels. 2. History of dementia. The patient appears stable on Aricept therapy. 3. History of chronic obstructive pulmonary disease. Continue present inhalation therapy and taper steroids when able. 4, History of hypertension. Blood pressure control is fair. The patient will continue calcium channel lloyd therapy, and he may be started on low-dose angiotensin receptor lloyd therapy as his BUN and creatinine have fallen to baseline. 5. History of left ventricular hypertrophy secondary to history of hypertension. 6. History of mild anemia in part secondary to hemodilution. 7. History of bronchitis/pneumonia. The patient will complete a course of oral antibiotic therapy. PLAN: 1. The patient is stable from a renal standpoint. BUN creatinine have fallen back to normal. 2. I will place the patient on low-dose angiotensin receptor lloyd therapy in addition to calcium channel lloyd therapy. This will likely help lowering his systolic blood pressure further. 3. Taper steroids when able. 4. Renal followup on an as-needed basis. Jonah Gramajo MD
[2017-06-08] MEDS: Enoxaparin 40 mg Syringe SC SCH (10:46)
[2017-06-08] MEDS: levoFLOXacin 750 MG TAB PO SCH (10:46)
[2017-06-08] MEDS: Promethazine DM 6.25 mg-15 mg/5 ml Syrup PO PRN (10:47)
--- NOTE | 2017-06-08 23:59 | PN ---
DATE: 06/08/2017 PULMONARY PROGRESS NOTE REFERRING PHYSICIAN: Dr. Cody Aguilar SUBJECTIVE: He is sitting up in bed. Night was unremarkable. Doing well in therapy. He feels better. Decreased cough. Decreased shortness of breath. No nausea. No vomiting. No diarrhea. No leg pain or leg swelling. PHYSICAL EXAMINATION: GENERAL: No acute distress. VITAL SIGNS: Temperature is 98, heart rate is 60, respiratory rate is 20, blood pressure is 114/55, pulse ox 95% on 3 L nasal cannula. HEENT: Moist mucous membranes. Crowded airway. Mallampati score is IV. NECK: Supple. No JVD. LUNGS: Has a fair airflow with rhonchi. HEART: S1 and S2. ABDOMEN: Soft and nontender. No organomegaly. EXTREMITIES: No edema. NEUROLOGIC: Awake, alert, and follows simple commands. MEDICATIONS: He is on Aricept 5 mg bedtime, Colace 100 mg twice a day, he is on Dulcolax p.r.n. basis, DuoNeb q 6 hours, Fleet enema p.r.n. basis, Levaquin 750 mg twice a week, Lovenox 40 mg daily, milk of magnesia p.r.n. basis, Norvasc 10 mg daily, Phenergan DM 5 mL q 4 hours p.r.n., prednisone 30 mg daily, Protonix 40 mg daily, Tylenol p.r.n., Xanax 0.5 mg daily p.r.n., Zofran p.r.n. basis. LABORATORY DATA: Shows hemoglobin 12.3, hematocrit 36.2, WBC 16.3, platelet count is 240. Sodium 138, potassium 3.9, chloride 104, bicarbonate 26, BUN 20, creatinine 1.0, glucose 79, calcium 8.1, phosphorus 3.6, magnesium 2.3, AST 32, ALT 67, alk phos is 53, total protein 5.7, albumin 3.0. IMPRESSION AND PLAN: Chronic obstructive lung disease, hypertension, benign prostatic hypertrophy, dementia, diastolic cardiac dysfunction, oropharyngeal dysphagia, sleep apnea syndrome, renal insufficiency. Continue and encourage BiPAP use. Keep head at 45 degrees, p.o. and inhaled bronchodilator. Gastric prophylaxis. Sequential compression devices to lower extremities. Fall precautions. Neurology followup. Thank you and we will follow with you. Dl Lynch MD [facility] # [id number]
[2017-06-09] MEDS: Albuterol-Ipratrop 3 mg / 0.5 (3 ml) UD IH SCH ×4 (01:20→19:47)
[2017-06-09] MEDS: Pantoprazole 40 mg EC Tab PO SCH (05:09)
[2017-06-09] MEDS: Bisacodyl 5mg EC Tab PO PRN ×2 (06:08→18:18)
[2017-06-09] MEDS: Enoxaparin 40 mg Syringe SC SCH (09:52)
[2017-06-09] MEDS: Magnesium Hydroxide Susp 30 ml UD PO PRN (09:53)
--- NOTE | 2017-06-09 23:45 | PN ---
DATE: 06/08/2017 SUBJECTIVE: The patient is an 87-year-old male who is comfortable and in no respiratory distress. No chest pain. He seems doing well. He is passing urine. He has less coughing and seems stable. PHYSICAL EXAMINATION VITAL SIGNS: Temperature is 97, heart rate is 60, blood pressure is 170/77, respiratory rate is 18, and oxygen saturation is 97% on room air. HEAD AND NECK: Normal. No JVD. No thyromegaly. CHEST: Clear and good air entry. CARDIAC: First sound and second sound are normal. ABDOMEN: Soft and nontender. EXTREMITIES: No edema. NEUROLOGIC: He is normal except dementia. LABORATORY STUDIES: White count of 16.3, hemoglobin of 12.3, hematocrit of 36.2, and platelets of 240. Chemistries: Sodium of 138, potassium of 3.9, chloride of 104, bicarbonate of 6, BUN of 20, and creatinine of 1. Calcium of 8.1 and magnesium of 2.3. Total bilirubin is normal. AST is normal and ALT is slightly elevated. IMPRESSION AND PLAN: 1. Acute chronic obstructive pulmonary disease exacerbation. Continue steroids. Continue inhaled bronchodilators and oxygen. The patient seems doing well. We will follow up clinically. 2. Hypertension, blood pressure running 170. We are going to add Cozaar and we will follow up on that. Monitor his blood pressure and also clonidine p.r.n. for systolic 170 or more. 3. Dementia, chronic. Continue Aricept. 4. Hypercholesterolemia, generalized weakness. Continue physical therapy and continue current medications. Cody Aguilar MD
--- NOTE | 2017-06-09 23:59 | PN ---
DATE: 06/09/2017 PULMONARY PROGRESS NOTE REFERRING PHYSICIAN: Cody Aguilar MD SUBJECTIVE: He is out of bed to chair. Night was unremarkable. Has mild cough, shortness of breath. No chest pain. No nausea or vomiting. No diarrhea. No leg pain or leg swelling. PHYSICAL EXAMINATION GENERAL: No acute distress. VITAL SIGNS: Temperature is 98, heart rate is 64, respiratory rate is 20, blood pressure is 132/63 and pulse oximetry 93% on nasal cannula. HEENT: Moist mucous membranes. Crowded airway. NECK: Supple. No JVD. LUNGS: Has a scattered rhonchi. HEART: S1 and S2. ABDOMEN: Soft and nontender. No organomegaly. EXTREMITIES: There is no edema. NEUROLOGIC: Awake, alert and follows simple commands. MEDICATIONS: He is on Aricept 5 mg bedtime, Catapres 0.1 mg twice a day p.r.n., Colace 100 mg twice a day, Cozaar 50 mg daily, Dulcolax 5 mg twice a day p.r.n., DuoNeb q. 6 hours, Ecotrin 81 mg daily, Fleet enema p.r.n. basis, Levaquin 750 mg twice a week, Lovenox 40 mg daily, Norvasc 10 mg daily, Phenergan DM 5 mL q.4 hours p.r.n., prednisone 20 mg daily, Protonix 40 mg daily, Tylenol p.r.n., Xanax 0.5 mg daily and Zofran p.r.n. basis. LABORATORY DATA: Reviewed and noted. No new lab is available since yesterday. IMPRESSION AND PLAN: Chronic obstructive lung disease, hypertension, benign prostatic hypertrophy, dementia, diastolic cardiac dysfunction, oropharyngeal dysphagia, sleep apnea syndrome, renal insufficiency. Pulmonary point of view doing okay. Continue and encourage bilevel positive airway pressure use. Keep head at 45 degrees. Gastric prophylaxis. Sequential compression devices to lower extremities. Fall precautions. Continue therapy. Thank you and we will follow with you. Dl Lynch MD
--- NOTE | 2017-06-10 01:30 | PN ---
DATE: 06/09/2017 SUBJECTIVE: The patient is comfortable, in no distress, he is awake, seems in no distress. PHYSICAL EXAMINATION: VITAL SIGNS: As follows, temperature 97, heart rate 60, blood pressure 122/67, respirations 18, saturation 97%. HEAD AND NECK: Normal. No JVD. No thyromegaly. CHEST: Clear with good air entry. CARDIAC: First sound and second sound normal. No murmur, rub or gallop. ABDOMEN: Soft, nontender. EXTREMITIES: No edema. NEUROLOGIC: Normal except dementia. IMPRESSION AND PLAN: 1. Acute chronic obstructive pulmonary disease exacerbation, resolving. Continue steroids. Continue inhaled bronchodilators and follow up clinically. 2. Hypertension is better. Continue Norvasc 10 mg plus daily. 3. Chronic constipation. The patient have Colace, Dulcolax, and advised the patient to get fleet enema if nothing work. The patient tried milk of magnesia, it did not help. 4. Hypertension. Continue Cozaar, Norvasc, and clonidine p.r.n. 5. Dementia. The patient is currently on Aricept, seems stable. Continue current therapy. Follow up clinically. Continue gastrointestinal and deep venous thrombosis prophylaxis. The patient is currently on p.o. Levaquin 750 every 48 hours. His renal function back to normal. Cody Aguilar MD
[2017-06-10] MEDS: Albuterol-Ipratrop 3 mg / 0.5 (3 ml) UD IH SCH ×4 (04:37→19:36)
[2017-06-10] MEDS: Pantoprazole 40 mg EC Tab PO SCH (05:22)
[2017-06-10] MEDS: Enoxaparin 40 mg Syringe SC SCH (05:29)
[2017-06-10] MEDS: levoFLOXacin 750 MG TAB PO SCH (09:05)
[2017-06-10] MEDS: Promethazine DM 6.25 mg-15 mg/5 ml Syrup PO PRN ×2 (17:56→22:01)
--- NOTE | 2017-06-10 21:22 | PN ---
PULMONARY PROGRESS NOTE DATE: 06/10/2017 REFERRING PHYSICIAN: Cody Aguilar MD SUBJECTIVE: He is lying in the bed under one-to-one supervision and agitated. No nausea. No vomiting. Has mild cough. No short of breath. No leg pain or leg swelling. OBJECTIVE: GENERAL: In no acute distress. VITAL SIGNS: Temperature is 98, heart rate is 64, respiratory rate is 20, blood pressure is 134/64, and pulse ox is 98% on room air. HEENT: Moist mucous membranes. No ulcer or thrush. NECK: Supple. No JVD. LUNGS: Has a fair airflow with rhonchi. HEART: S1 and S2. ABDOMEN: Soft and nontender. No organomegaly. EXTREMITIES: There is no edema. NEUROLOGIC: Awake, alert, and follows simple commands. MEDICATIONS: He is on Aricept 5 mg bedtime, Catapres 0.1 mg twice a day p.r.n., Colace 100 mg twice a day, Cozaar 50 mg daily, Dulcolax p.r.n. basis, DuoNeb q.6 hours around the clock, Ecotrin 81 mg daily, Fleet Enema p.r.n. basis, Levaquin 750 mg twice a week, Lovenox 40 mg daily, Norvasc 10 mg daily, Phenergan DM 5 mL q.4 hours p.r.n., prednisone 20 mg daily, Protonix 40 mg daily, Tylenol p.r.n., Xanax 0.5 mg daily p.r.n., and Zofran p.r.n. basis. LABORATORY DATA: Reviewed and noted. No new changes in medication reported since yesterday. IMPRESSION AND PLAN: Chronic obstructive lung disease, hypertension, benign prostatic hypertrophy, dementia, history of diastolic dysfunction, oropharyngeal dysphagia, modified diet, may have sleep apnea syndrome, and renal insufficiency. Pulmonary point of view, doing okay. Continue p.o. and inhaled bronchodilator. Gastric prophylaxis, deep venous thrombosis prophylaxis, fall precautions, and continue antibiotics. Thank you and we will follow with you. Dl Lynch MD [facility] # [id number]
--- NOTE | 2017-06-10 23:51 | PN ---
SUBJECTIVE: Patient is comfortable. No distress. No new complaints. Hemodynamically stable. Did not sleep well last night, otherwise, no new complaints. He gets sometimes out of bed by himself and needs some observation for that. PHYSICAL EXAMINATION VITAL SIGNS: As follows; temperature is 97.3, heart rate is 64, blood pressure is 134/64, respirations 20, saturation 98% on room air. HEAD AND NECK: Normal. No JVD. No thyromegaly. CHEST: Clear. Good air entry. CARDIAC: First sound and second sound normal. ABDOMEN: Soft, nontender. EXTREMITIES: No edema. NEUROLOGIC: Normal. IMPRESSION AND PLAN: 1. Acute chronic obstructive pulmonary disease exacerbation. Patient did well with IV steroids, switch to p.o. prednisone, we will continue current therapy. Continue inhaled bronchodilators and patient will continue current therapy. 2. Generalized weakness, deconditioning. Continue physical therapy. 3. Constipation. Fleet Enema p.r.n. Continue Colace. 4. Possible urinary tract infection, pneumonia. Patient did have some possible urinary tract infection and pneumonia. Continue Levaquin every 2 days every 48 hours, 750 mg daily. 5. Anxiety, agitations. Seems doing well with 0.5 mg p.o. prednisone plus Aricept for his underlying dementia 5 mg p.o. daily. 6. Hypertension, stable. Cozaar 50 mg p.o. daily. Patient also getting Norvasc 10 mg p.o. daily. Clonidine only if the blood pressure p.r.n. more than 170 and above. Continue current therapy. 7. Cerebrovascular accident, history of multiple transient ischemic attacks. Cerebrovascular accident, continue aspirin 81 mg. Continue gastrointestinal and deep venous thrombosis prophylaxis. Patient getting Lovenox 40 mg subcu daily and getting Protonix 40 mg p.o. daily. Continue physical therapy. Followup clinically. Cody Aguilar MD
[2017-06-11] MEDS: Albuterol-Ipratrop 3 mg / 0.5 (3 ml) UD IH SCH ×4 (02:48→20:52)
[2017-06-11] MEDS: Enoxaparin 40 mg Syringe SC SCH (06:24)
[2017-06-11] MEDS: Pantoprazole 40 mg EC Tab PO SCH (06:24)
--- NOTE | 2017-06-11 23:23 | PN ---
PULMONARY PROGRESS NOTE DATE: 06/11/2017 REFERRING PHYSICIAN: Cody Aguilar MD SUBJECTIVE: He is lying in the bed, doing well in therapy has some cough. No sputum production. No hemoptysis. No hematemesis. No hematuria. No diarrhea reported. PHYSICAL EXAMINATION: GENERAL: In no acute distress. VITAL SIGNS: Temperature is 98, heart rate is 50, respiratory rate is 18, blood pressure is 105/62, and pulse ox is 97% on 2 L nasal cannula. HEENT: Moist mucous membranes. Crowded airway. Mallampati score is IV. NECK: Supple. No JVD. HEART: S1 and S2. LUNGS: Has a fair airflow with rhonchi. ABDOMEN: Soft and nontender. No organomegaly. EXTREMITIES: There is no edema. NEUROLOGIC: Sleepy, arousable, and follow simple commands. MEDICATIONS: He is on Aricept 5 mg at bedtime, clonidine 0.1 mg twice a day p.r.n., Colace 100 mg twice a day, Cozaar 50 mg daily, Dulcolax 5 mg twice a day p.r.n., DuoNeb q.6 hours, Ecotrin 81 mg daily, Fleet Enema 135 mL rectally p.r.n. basis, Levaquin 750 mg twice a week, Lovenox 40 mg daily, milk of magnesia p.r.n., Norvasc 10 mg daily, Phenergan With Codeine q.4 hours p.r.n., prednisone 20 mg daily, Protonix 40 mg daily, Tylenol p.r.n. basis, Xanax 0.5 mg daily p.r.n., and Zofran 4 mg IV q.6 hours p.r.n. LABORATORY DATA: Reviewed. No new lab is available since yesterday. IMPRESSION AND PLAN: Chronic obstructive lung disease, hypertension, benign prostatic hypertrophy, dementia, diastolic cardiac dysfunction, oropharyngeal dysphagia, on modified diet, may have sleep apnea syndrome, and renal insufficiency. Pulmonary point of view, doing okay, keep head at 45 degrees, bronchodilator, aspiration precaution, fall precaution, and continue therapy. Thank you and we will follow with you. Dl Lynch MD
[2017-06-12] MEDS: Albuterol-Ipratrop 3 mg / 0.5 (3 ml) UD IH SCH ×4 (01:45→20:09)
[2017-06-12] MEDS: Pantoprazole 40 mg EC Tab PO SCH (05:11)
[2017-06-12] MEDS: Enoxaparin 40 mg Syringe SC SCH (05:32)
[2017-06-12] MEDS: Promethazine DM 6.25 mg-15 mg/5 ml Syrup PO PRN ×2 (08:35→17:57)
[2017-06-12] MEDS: levoFLOXacin 750 MG TAB PO SCH (09:56)
--- NOTE | 2017-06-12 15:26 | PN ---
DATE: 06/11/2017 SUBJECTIVE: An 87-year-old male came in with generalized weakness, shortness of breath. The patient is doing well. Breathing comfortably. He is weak. The patient is getting physical therapy. There is no new complaint. No agitation. Seems to be doing well. We will discontinue one on one. PHYSICAL EXAMINATION: VITAL SIGNS: As follows: Temperature is 97, heart rate 53, blood pressure 116/52, respirations 19, and saturation 97% on room air. HEAD AND NECK: Normal. No JVD. No thyromegaly. CHEST: Clear. Good air entry. CARDIAC: First sound and second sound normal. ABDOMEN: Soft and nontender. EXTREMITIES: No edema. NEUROLOGIC: Normal. ASSESSMENT AND PLAN: 1. Acute chronic obstructive pulmonary disease exacerbation. The patient seems to be doing well. Continue steroids. Continue nebulizer treatment, inhaled bronchodilators. The patient is also getting IV antibiotic every 2 days. 2. Hypertension. Continue Norvasc and Cozaar. Seems to be doing well. 3. Chronic constipation. The patient is getting Dulcolax, MiraLax, milk of magnesia, and fleet enema p.r.n. for severe constipation. 4. Dementia with behavior disorder, seems stable now. Continue Xanax p.r.n. Continue Aricept. Followup clinically. 5. Generalized weakness. Continue physical therapy on a daily basis. The patient seems stable. We will follow up clinically. Cody Aguilar MD
--- NOTE | 2017-06-13 00:33 | PN ---
DATE: SUBJECTIVE: The patient is doing well. He is feeling better. Getting physical therapy. No chest pain. No shortness of breath. No respiratory distress. PHYSICAL EXAMINATION: VITAL SIGNS: Temperature is 97.6, heart rate 61, blood pressure 113/54, respirations 18, saturation 98% on room air. HEAD AND NECK: Normal. No JVD. No thyromegaly. CHEST: Clear. Good air entry. CARDIAC: First sound and second sound normal. ABDOMEN: Soft and nontender. EXTREMITIES: No edema. NEUROLOGIC: The patient is alert and awake. He is moving all extremities on and steady gait. CURRENT MEDICATIONS: He is takin. Aricept 5 mg p.o. daily. 2. Clonidine 0.1 mg b.i.d. p.r.n. 3. Colace. 4. Cozaar 50 mg daily. 5. Dulcolax. 6. DuoNeb. 7. Ecotrin. 8. Fleet enema. 9. Lovenox 40 mg. 10. Milk of magnesia. 11. Norvasc 10 mg. 12. Cough medicine Phenergan DM. 13. Prednisone 20 mg p.o. daily. 14. Protonix 40 mg p.o. daily. 15. Xanax 0.5 mg p.o. daily. 16. Zofran 4 mg IV q. 6 hours p.r.n. IMPRESSION: 1. Generalized weakness, deconditioning. Continue physical therapy. 2. Acute chronic obstructive pulmonary disease exacerbations. Continue steroids and inhaled bronchodilators. We will do tapers in dose gradually. 3. Hypertension, stable. Continue Cozaar and continue Norvasc 10 mg. 4. Chronic anxiety and agitation. Continue Xanax 0.5 mg p.o. daily p.r.n. 5. Chronic obstructive pulmonary disease. We will continue inhaled bronchodilators. Continue p.o. Levaquin 250 every 48 hours. 6. Acute renal failure, resolved. We will continue current therapy at this time. 7. Continue current therapy. Coyd Aguilar MD
--- NOTE | 2017-06-13 00:51 | PN ---
DATE: 06/12/2017 PULMONARY PROGRESS NOTE REFERRING PHYSICIAN: Cody Aguilar MD SUBJECTIVE: The patient is lying in the bed, sleepy, and arousable. Night was unremarkable. Doing well in therapy. Cough is getting better. No nausea, no vomiting, and no diarrhea. No leg pain or leg swelling. OBJECTIVE: GENERAL: In no acute distress. VITAL SIGNS: Temperature is 98, heart rate is 61, respiratory rate is 18 blood pressure is 113/50 and pulse oximetry is 98% on 2 L nasal cannula. HEENT: Moist mucous membranes. No ulcer or thrush. NECK: Supple. No JVD. LUNGS: Have fair airflow with few rhonchi. HEART: S1 and S2. ABDOMEN: Soft and nontender. No organomegaly. EXTREMITIES: There is no edema. NEUROLOGIC: Sleepy, arousable, and follow simple command. MEDICATIONS: He is on Aricept 5 mg at bedtime, clonidine 0.1 mg twice a day p.r.n., Colace 100 mg twice a day, Cozaar 50 mg daily, Dulcolax p.r.n. basis, DuoNeb q. 6 hours., Ecotrin 81 mg daily, Fleet Enema on a p.r.n. basis, Levaquin 750 mg twice a week, Lovenox 40 mg subcutaneous daily, Norvasc 10 mg daily, Phenergan DM 5 mL q. 4 hours. p.r.n., prednisone 20 mg daily, Protonix 40 mg daily, Tylenol p.r.n., Xanax 0.5 mg daily p.r.n., and Zofran p.r.n. basis. LABORATORY DATA: Reviewed and no new lab is available. IMPRESSION AND PLAN: Chronic obstructive lung disease, hypertension, benign prostatic hyperplasia, dementia, diastolic cardiac dysfunction, oropharyngeal dysphagia, modified diet, may have sleep apnea syndrome, and renal insufficiency. Pulmonary point of view, he is doing okay. We will decrease prednisone to 10 mg daily. Continue bronchodilator. Keep head at 45 degree. Fall precaution. Thank you and we will follow with you. Dl Lynch MD [facility] # [id number]
[2017-06-13] MEDS: Albuterol-Ipratrop 3 mg / 0.5 (3 ml) UD IH SCH ×4 (01:59→21:03)
[2017-06-13] MEDS: Pantoprazole 40 mg EC Tab PO SCH (05:27)
[2017-06-13] MEDS: Enoxaparin 40 mg Syringe SC SCH (05:30)
[2017-06-13] MEDS: Promethazine DM 6.25 mg-15 mg/5 ml Syrup PO PRN ×2 (09:26→18:39)
--- NOTE | 2017-06-13 20:48 | PN ---
DATE: 06/13/2017 PULMONARY PROGRESS NOTE REFERRING PHYSICIAN: Cody Aguilar MD SUBJECTIVE: The patient is sitting up in the reclining chair. Night was unremarkable. Mild cough, overall feels better. No nausea, no vomiting, and no diarrhea. No leg pain or leg swelling. OBJECTIVE: GENERAL: In no acute distress. VITAL SIGNS: Temperature is 98, heart rate is 57, respiratory rate is 18, blood pressure is 135/59 and pulse oximetry is 94% on 2 L nasal cannula. HEENT: Moist mucous membranes. Crowded airway. NECK: Supple. No JVD. LUNGS: Has a fair airflow with few rhonchi. HEART: S1 and S2. ABDOMEN: Soft and nontender. No organomegaly. EXTREMITIES: There is no edema. NEUROLOGIC: Awake, alert, and follow simple commands. MEDICATIONS: He is on Aricept 5 mg at bedtime, clonidine 0.1 mg twice a day p.r.n., Colace 100 mg twice a day, Cozaar 50 mg daily, Dulcolax p.r.n. basis, DuoNeb q. 6 hours, Ecotrin 81 mg daily, Fleet Enema p.r.n. basis, Levaquin 750 mg twice a week, Lovenox 40 mg subcu daily, milk of magnesia p.r.n. basis, Norvasc 10 mg daily, Phenergan DM 5 mL q. 4 hours p.r.n., prednisone 20 mg daily, Protonix 40 mg daily, Tylenol p.r.n., Xanax 0.25 mg daily p.r.n., and Zofran p.r.n. basis. IMPRESSION AND PLAN: Chronic obstructive lung disease, hypertension, benign prostatic hypertrophy, dementia, diastolic cardiac dysfunction, oropharyngeal dysphagia, on modified diet, and may have sleep apnea syndrome. Pulmonary point of view, doing well. Continue p.o. and inhaled, bronchodilator, keep head at 45 degrees, continue diuretics, fall precaution, and aspiration precaution. Thank you and we will follow with you. Dl Lynch MD
[2017-06-14] MEDS: Albuterol-Ipratrop 3 mg / 0.5 (3 ml) UD IH SCH ×3 (03:00→13:15)
[2017-06-14] MEDS: Enoxaparin 40 mg Syringe SC SCH (06:21)
[2017-06-14] MEDS: Pantoprazole 40 mg EC Tab PO SCH (06:21)
--- NOTE | 2017-06-14 06:35 | PN ---
DATE: 06/13/2017 SUBJECTIVE: The patient seems to be doing well, doing better, in no acute distress. No chest pain. No shortness of breath. PHYSICAL EXAMINATION: Stable. VITAL SIGNS: As follows; on 06/13/2017 temperature 98, heart rate 51, blood pressure 125/54, respirations 18, saturation 94% on 2 L. HEAD AND NECK: Normal. No JVD. No thyromegaly. CHEST: Clear. Good air entry. CARDIAC: First sound and second sound normal. ABDOMEN: Soft and nontender. EXTREMITIES: No edema. NEUROLOGIC: Normal except the dementia. IMPRESSION AND PLAN: 1. Acute chronic obstructive pulmonary disease exacerbation, is getting better. Continue steroids and inhaled bronchodilators. 2. Generalized weakness. Continue physical therapy. 3. Hypertension stable. Continue current medications. 4. Acute renal failure, resolved. 5. Chronic dementia and anxiety. Continue Aricept and Xanax. The patient seems doing well. 6. Constipation. Continue current medication milk of magnesia p.r.n., and fleet enema p.r.n. Cody Aguilar MD
[2017-06-14] MEDS: levoFLOXacin 750 MG TAB PO SCH (10:37)
[2017-06-14 17:47] VITALS: BP 120/57; PULSE 65; RESP 15; TEMP 97.2; O2SAT 96
--- NOTE | 2017-06-14 23:31 | PN ---
PULMONARY PROGRESS NOTE DATE: 06/14/2017 REFERRING PHYSICIAN: Cody Aguilar MD SUBJECTIVE: He is sitting up in a chair, night was unremarkable, being discharged home, and feels okay. No cough. No sputum production. No nausea. No vomiting, diarrhea, leg pain, or leg swelling. OBJECTIVE: GENERAL: In no acute distress. VITAL SIGNS: Temperature is 98, heart rate is 65, respiratory rate is 18, blood pressure is 120/57, and pulse ox is 96% on room air. HEENT: Moist mucous membranes. No ulcer or thrush noted. NECK: Supple. No JVD. LUNGS: Has a fair airflow with rhonchi. HEART: S1 and S2. ABDOMEN: Soft and nontender. No organomegaly. EXTREMITIES: No edema. NEUROLOGIC: Awake, alert, and follows simple commands. LABORATORY DATA: No new labs available since yesterday. MEDICATIONS: Reviewed. No new changes reported since yesterday. IMPRESSION AND PLAN: Chronic obstructive lung disease, hypertension, benign prostatic hypertrophy, dementia, diastolic cardiac dysfunction, oropharyngeal dysphagia, on modified diet, and may have sleep apnea syndrome. Pulmonary point of view, doing okay. Continue bronchodilator, keep head at 45 degrees, gastric prophylaxis, fall precaution, and aspiration precaution. Thank you and we will follow with you. Dl Lynch MD
--- NOTE | 2017-06-15 11:16 | DS ---
DATE OF DISCHARGE: 06/14/2017 HOSPITAL COURSE: The patient is stable. The patient has been in CCU, seems doing well, has no new complaints, getting physical therapy, less agitations and comfortable. PHYSICAL EXAMINATION: No change from previous. GENERAL: He is stable. VITAL SIGNS: As follows: Temperature 97.2, heart rate 65, blood pressure 120/57, respirations 15, saturating 96%. LUNGS: Clear. CARDIAC: Stable first sound and second sound. ABDOMEN: Soft. EXTREMITIES: No edema. NEUROLOGIC: Normal. The patient is stable. The patient was doing physical therapy and was doing okay. LABORATORY DATA: Stable. Stable chemistry like last chemistry, he had sodium of 138, potassium 3.9, chloride 104, bicarb 26, BUN 20, and creatinine is 1. CBC: His white count is 16.3, hemoglobin 12.3, hematocrit 36.2, and platelets 240. DISCHARGE DIAGNOSES: 1. Acute chronic obstructive pulmonary disease exacerbation: The patient continued to be on steroids. We will give him prednisone 15 mg to be tapered every two days go down by 5 mg, prescription to the patient by pharmacy. Also, we will continue inhaled bronchodilator. The patient does have his current medicines at home, which are Advair and Ventolin. 2. The patient also has hypertension. Continue his current medications as before Bernadette. 3. Prostate enlargement: Continue Flomax. 4. Dementia: Continue Aricept. We will discharge the patient and we will follow up as outpatient. Resume all these previous medications that he took at home in addition to prednisone 15 mg to be tapered over 5 days. See him within one week. Cody Aguilar MD
== END 2017-06-14 20:10 | disposition home or self-care (01) | DRG 945 ==
LOC: TRCU 16:48
PROVIDERS: ADMIT Internal Medicine; ATTEND Internal Medicine
PROC: 3E0F7GC Introduction of Other Therapeutic Substance into Respiratory Tract, Via Natural or Artificial Opening (ICD-10-PCS; 2017-06-06)
PROC: F07Z9FZ Gait Training/Functional Ambulation Treatment using Assistive, Adaptive, Supportive or Protective Equipment (ICD-10-PCS; principal; 2017-06-07)
PROC: F08Z4FZ Home Management Treatment using Assistive, Adaptive, Supportive or Protective Equipment (ICD-10-PCS; 2017-06-08)
DX: R53.1 Weakness (principal); J44.1 Chronic obstructive pulmonary disease with (acute) exacerbation; N17.9 Acute kidney failure, unspecified; F03.91 Unspecified dementia, unspecified severity, with behavioral disturbance; R13.12 Dysphagia, oropharyngeal phase; E86.9 Volume depletion, unspecified; R26.9 Unspecified abnormalities of gait and mobility; D64.9 Anemia, unspecified; I11.9 Hypertensive heart disease without heart failure; E78.00 Pure hypercholesterolemia, unspecified; N40.0 Benign prostatic hyperplasia without lower urinary tract symptoms; G89.4 Chronic pain syndrome; G47.30 Sleep apnea, unspecified; K59.09 Other constipation; F41.9 Anxiety disorder, unspecified; F17.210 Nicotine dependence, cigarettes, uncomplicated; Z86.73 Personal history of transient ischemic attack (TIA), and cerebral infarction without residual deficits

== ENCOUNTER 2017-07-09 18:46 | Inpatient (IN) | payer MEDICARE, MEDICAID ==
[2017-07-09 19:53] VITALS: BMI 23.0
--- NOTE | 2017-07-09 20:08 | ED PDOC ---
Arrival/HPI - General Chief Complaint: Abdominal Pain Time Seen by Provider: 07/09/17 19:56 Historian: Patient - History of Present Illness Narrative History of Present Illness (Text): 07/09/17 20:05 87 year old male, whose past medical history includes COPD, dementia, HTN, TIA, osteoarthritis, CHF, and pneumonia, presents to the emergency department complaining of frequent episodes of vomiting for a couple day. Patient also complains of occasional left lateral flank discomfort. Patient denies any fevers , chills, chest pain, shortness of breath, diarrhea, urinary/bowel changes, headache, dizziness, or any other complaint. Time/Duration: < week Symptom Onset: Gradual Symptom Course: Unchanged Context: Home Past Medical History - Provider Review Nursing Documentation Reviewed: Yes - Infectious Disease Hx of Infectious Diseases: None - Tetanus Immunization Tetanus Immunization: Unknown - Cardiac Hx Cardiac Disorders: Yes Hx Hypertension: Yes - Pulmonary Hx Respiratory Disorders: Yes Hx Chronic Obstructive Pulmonary Disease (COPD): Yes Hx Pneumonia: Yes - Neurological Hx Neurological Disorder: Yes Hx Dementia: Yes Hx Transient Ischemic Attacks (TIA): Yes - HEENT Hx HEENT Disorder: Yes (WEARS RX GLASSES) Hx Cataracts: Yes - Renal Hx Renal Disorder: Yes - Endocrine/Metabolic Hx Endocrine Disorders: No - Hematological/Oncological Hx Blood Disorders: No - Integumentary Hx Dermatological Disorder: Yes (MULTIPLE ROUND OLD AGE SPOTS TO FACE,ARMS) - Musculoskeletal/Rheumatological Hx Musculoskeletal Disorders: No Hx Falls: No Hx Unsteady Gait: Yes (cane) - Gastrointestinal Hx Gastrointestinal Disorders: No - Genitourinary/Gynecological Hx Genitourinary Disorders: Yes - Psychiatric Hx Psychophysiologic Disorder: No Hx Substance Use: No - Past Surgical History Past Surgical History: No Previous - Anesthesia Hx Anesthesia: No - Suicidal Assessment Feels Threatened In Home Enviroment: No Family/Social History - Physician Review Nursing Documentation Reviewed: Yes Family/Social History: Unknown Family HX Smoking Status: Former Smoker Hx Alcohol Use: Yes (OCCASIONAL WINE H/O) Frequency of alcohol use: Socially Hx Substance Use: No Hx Substance Use Treatment: No Allergies/Home Meds Allergies/Adverse Reactions: Allergies No Known Allergies Allergy (Verified 06/08/17 07:28) Home Medications: Home Meds Medication Instructions Recorded Confirmed Unobtainable 05/31/17 06/08/17 Review of Systems - Physician Review All systems were reviewed & negative as marked: Yes - Review of Systems Constitutional: absent: Fevers, Night Sweats Respiratory: absent: SOB Cardiovascular: absent: Chest Pain Gastrointestinal: Vomiting. absent: Diarrhea Genitourinary Male: absent: Dysuria Neurological: absent: Headache, Dizziness Physical Exam Vital Signs Reviewed: Yes Vital Signs Temp Pulse Resp BP Pulse Ox 07/10/17 00:40 97.8 F 48 L 14 149/67 93 L 07/09/17 21:08 46 L 18 156/71 H 94 L 07/09/17 19:36 98.0 F 50 L 16 192/82 H 96 Temperature: Afebrile Blood Pressure: Hypertensive Respiratory Rate: Normal Appearance: Positive for: Well-Appearing, Non-Toxic, Comfortable Pain Distress: None Mental Status: Positive for: Alert and Oriented X 3 - Systems Exam Head: Present: Atraumatic, Normocephalic Pupils: Present: PERRL Extroacular Muscles: Present: EOMI Conjunctiva: Present: Normal Mouth: Present: Moist Mucous Membranes Neck: Present: Normal Range of Motion Respiratory/Chest: Present: Clear to Auscultation, Good Air Exchange. No: Respiratory Distress, Accessory Muscle Use Cardiovascular: Present: Regular Rate and Rhythm, Normal S1, S2. No: Murmurs Abdomen: Present: Normal Bowel Sounds. No: Tenderness, Distention, Peritoneal Signs Back: Present: Normal Inspection. No: CVA Tenderness, Midline Tenderness, Paraspinal Tenderness Upper Extremity: Present: Normal Inspection. No: Cyanosis, Edema Lower Extremity: Present: Normal Inspection. No: Edema Neurological: Present: GCS=15, CN II-XII Intact, Speech Normal Skin: Present: Warm, Dry, Normal Color. No: Rashes Psychiatric: Present: Alert, Oriented x 3, Normal Insight, Normal Concentration Medical Decision Making ED Course and Treatment: 07/09/17 20:05 Impression: 87 year old male presents to the emergency department complaining of frequent episodes of vomiting. Plan: -- Chest xray -- EKG -- Urinalysis -- Labs -- Pepcid, Zofran, Sodium Chloride IV fluids -- Reassess and disposition Prior Visits: Notes and results from previous visits were reviewed. Patient was last seen in the emergency department on 05/31/17. He was diagnosed with congestive heart failure and was hospitalized. Progress Notes: Reviewed EKG, sinus bradycardia at [address]/T wave changes. Unchanged from 05/31/2017. 07/09/17 21:20 Chest X-ray reviewed, shows chronic interstitial changes. 07/09/17 23:42 CT Abdomen and Pelvis shows: Hazy bibasilar opacities likely at least partially chronic however superimposed infectious/inflammatory process possible especially on the right. There is a 5 mm nodular opacity in the right midlung. Recommend correlation with priors.Follow up based on William criteria. Rounded low-density attenuation within the gallbladder presumably nitrogen gallstone. Round hypoattenuating hepatic lesions with Hounsfield units supportive of cysts. The kidneys, spleen, and pancreas appear grossly normal on this non-contrast study. The bowel appears grossly normal. A normal appendix is identified axial images 53 through 61. Slight haziness surrounding the prostate gland at least partially secondary to motion however correlation with PSA level may be helpful. Incomplete distention of the urinary bladder limits evaluation. There are atherosclerotic changes of the aorta. Suprarenal aorta measures 3 cm in diameter the infrarenal aorta measures 2.8 cm in diameter. Decreased height T12 vertebrae. IMPRESSION: Asymmetric right lower lung hazy opacity possible developing infectious/ inflammatory process. Clinical correlation recommended. Cholelithiasis without evidence of cholecystitis. Haziness in the fat surrounding the prostate as discussed above. Decreased height T12 vertebrae age indeterminate. Recommend correlation with priors. 07/10/17 00:[address] Aguilar, who is aware and agrees with plan. Accepts pt in to his service. Pt will go to [facility] observation for abdominal pain and intractable vomiting. - Lab Interpretations Lab Results: 07/09/17 20:05 07/09/17 20:05 Lab Results 07/09/17 20:40: Urine Color Yellow, Urine Appearance Clear, Urine pH 6.5, Ur Specific [place] 1.025, Urine Protein 30 H, Urine Glucose (UA) Negative, Urine Ketones Negative, Urine Blood Negative, Urine Nitrate Negative, Urine Bilirubin Negative, Urine Urobilinogen 0.2, Ur Leukocyte Esterase Negative, Urine RBC 0 - 2, Urine WBC 0 - 2, Ur Epithelial Cells 1 - 3, Urine Bacteria Many, Urine Other Mucus 07/09/17 20:05: PT 11.9, INR 1.04, APTT 33.2 07/09/17 20:05: WBC 10.5 D, RBC 4.76, Hgb 14.0, Hct 41.5 L, MCV 87.2 D, MCH 29.4, MCHC 33.7, RDW 15.3 H, Plt Count 269, MPV 9.9 07/09/17 20:05: Sodium 141, Potassium 4.3, Chloride 101, Carbon Dioxide 32, Anion Gap 12, BUN 18, Creatinine 1.2, Est GFR ( Amer) > 60, Est GFR (Non- Af Amer) 57, Random Glucose 107, Calcium 9.8, Total Bilirubin 1.5 H, AST 35, ALT 51, Alkaline Phosphatase 87, Lactate Dehydrogenase 467, Total Creatine Kinase 27 L, Troponin I 0.03 D, NT-Pro-B Natriuret Pep 559 H, Total Protein 7.0 , Albumin 3.9, Globulin 3.1, Albumin/Globulin Ratio 1.2, Lipase 72 I have reviewed the lab results: Yes - RAD Interpretation Radiology Orders: 07/09/17 20:01 CHEST PORTABLE [RAD] Stat 07/09/17 22:12 ABD & PELVIS W/O PO OR IV CONT [CT] Stat Glue Wheel Operator: ED Physician - EKG Interpretation Interpreted by ED Physician: Yes Type: 12 lead EKG - Medication Orders Current Medication Orders: Sodium Chloride (Sodium Chloride 0.9%) 1,000 mls @ 50 mls/hr IV .Q20H RYLIE Last Admin: 07/09/17 20:33 Dose: 50 mls/hr eMAR Start Stop Document 07/09/17 20:33 SF (Rec: 07/09/17 20:33 SF [email or web address] Intravenous Solution Start Date 07/09/17 Start Time 20:33 Discontinued Medications Famotidine (Pepcid) 20 mg IVP STAT STA Stop: 07/09/17 20:05 Last Admin: 07/09/17 20:33 Dose: 20 mg IVP Administration Document 07/09/17 20:33 SF (Rec: 07/09/17 20:33 SF [email or web address] Charges for Administration # of IVP Administrations 1 Ondansetron HCl (Zofran Inj) 4 mg IVP ONCE ONE Stop: 07/09/17 20:05 Last Admin: 07/09/17 20:33 Dose: 4 mg IVP Administration Document 07/09/17 20:33 SF (Rec: 07/09/17 20:33 SF [id number] Charges for Administration # of IVP Administrations 1 - Scribe Statement The provider has reviewed the documentation as recorded by the Scribe Floyd Duckworth Provider Scribe Attestation: All medical record entries made by the Scribe were at my direction and personally dictated by me. I have reviewed the chart and agree that the record accurately reflects my personal performance of the history, physical exam, medical decision making, and the department course for this patient. I have also personally directed, reviewed, and agree with the discharge instructions and disposition. Disposition/Present on Arrival - Present on Arrival Any Indicators Present on Arrival: No History of DVT/PE: No History of Uncontrolled Diabetes: No Urinary Catheter: No History of Decub. Ulcer: No History Surgical Site Infection Following: None - Disposition Have Diagnosis and Disposition been Completed?: Yes Diagnosis: Abdominal pain, Intractable vomiting Disposition: HOSPITALIZED Disposition Time: 00:46 Condition: STABLE Forms: [email or web address] ([place]ian)
[2017-07-09] MEDS: Sodium Chloride 0.9% 1,000 ML IV SCH (20:33)
[2017-07-09 21:10] LABS: ALB/GLOB RATIO 1.2 (1.1-1.8); ALBUMIN 3.9 g/dL (3.0-4.8); ALT/SGPT 51 U/L (7-56); AST/SGOT 35 U/L (17-59); BLOOD UREA NITROGEN 18 mg/dL (7-21); CALCIUM 9.8 mg/dL (8.4-10.5); GFR AFRICAN-AMERICAN > 60; GFR NON-AFRICAN AMERICAN 57; LIPASE 72 U/L (23-300)
[2017-07-09 21:22] LABS: B-TYPE NATRIURETIC PEPTIDE 559 pg/mL (0-450); TROPONIN I 0.03 ng/mL
[2017-07-09 21:23] LABS: MEAN CELL VOLUME 87.2 fl (80.0-105.0); MEAN CORPUSCULAR HEMOGLOBIN 29.4 pg (25.0-35.0); MEAN CORPUSCULAR HGB CONC 33.7 g/dl (31.0-37.0); MEAN PLATELET VOLUME 9.9 fl (7.0-11.0); RBC 4.76 10^6/uL (3.5-6.1); RED CELL DISTRIBUTION WIDTH 15.3 % (11.5-14.5); WHITE BLOOD COUNT 10.5 10^3/ul (4.5-11.0)
[2017-07-09 21:25] LABS: PH,URINE 6.5 (4.7-8.0); URINE BILIRUBIN NEGATIVE (NEGATIVE); URINE BLOOD NEGATIVE (NEGATIVE); URINE GLUCOSE (UA) NEGATIVE (NEGATIVE); URINE LEUKOCYTE ESTERASE NEGATIVE Leu/uL (NEGATIVE); URINE NITRATE NEGATIVE (NEGATIVE); URINE PROTEIN 30 mg/dL (<30 mg/dL); URINE UROBILINOGEN 0.2 E.U./dL (<1 E.U./dL)
[2017-07-09 21:36] LABS: URINE APPEARANCE CLEAR (CLEAR); URINE COLOR YELLOW (YELLOW)
[2017-07-09 21:36] LABS: INR 1.04 (0.93-1.08); PARTIAL THROMBOPLASTIN TIME 33.2 Seconds (25.1-36.5); PROTHROMBIN TIME 11.9 SECONDS (9.4-12.5)
[2017-07-09 21:49] LABS: URINE BACTERIA MANY (NEG); URINE RBC 0 - 2 /hpf (0-2); URINE WBC 0 - 2 /hpf (0-6)
--- NOTE | 2017-07-09 23:42 | CT ---
EXAM: CT Abdomen and Pelvis Without Intravenous Contrast EXAM DATE/TIME: 07/09/2017 10:12 PM CLINICAL HISTORY: 87 years old, male; Pain; Abdominal pain; Flank; Left; Additional info: Left flank TECHNIQUE: Axial computed tomography images of the abdomen and pelvis without intravenous contrast. All CT scans at this facility use one or more dose reduction techniques, viz.: automated exposure control; ma/kV adjustment per patient size (including targeted exams where dose is matched to indication; i.e. head); or iterative reconstruction technique. Coronal and sagittal reformatted images were created and reviewed. COMPARISON: No relevant prior studies available. FINDINGS: Hazy bibasilar opacities likely at least partially chronic however superimposed infectious/inflammatory process possible especially on the right. There is a 5 mm nodular opacity in the right midlung. Recommend correlation with priors.Follow up based on William criteria. Rounded low-density attenuation within the gallbladder presumably nitrogen gallstone. Round hypoattenuating hepatic lesions with Hounsfield units supportive of cysts. The kidneys, spleen, and pancreas appear grossly normal on this non-contrast study. The bowel appears grossly normal. A normal appendix is identified axial images 53 through 61. Slight haziness surrounding the prostate gland at least partially secondary to motion however correlation with PSA level may be helpful. Incomplete distention of the urinary bladder limits evaluation. There are atherosclerotic changes of the aorta. Suprarenal aorta measures 3 cm in diameter the infrarenal aorta measures 2.8 cm in diameter. Decreased height T12 vertebrae. IMPRESSION: Asymmetric right lower lung hazy opacity possible developing infectious/inflammatory process. Clinical correlation recommended. Cholelithiasis without evidence of cholecystitis. Haziness in the fat surrounding the prostate as discussed above. Decreased height T12 vertebrae age indeterminate. Recommend correlation with priors.
--- NOTE | 2017-07-10 08:35 | RAD ---
HISTORY: Vomiting COMPARISON: 06/03/2017. FINDINGS: LUNGS: Again seen is mild pulmonary venous congestion. No focal consolidation PLEURA: No significant pleural effusion identified, no pneumothorax apparent. CARDIOVASCULAR: There is persistent mild cardiomegaly. OSSEOUS STRUCTURES: No significant abnormalities. VISUALIZED UPPER ABDOMEN: Normal. OTHER FINDINGS: None. IMPRESSION: Mild cardiomegaly and pulmonary venous congestion. No focal consolidation.
[2017-07-10] MEDS: cefTRIAXone 2 GM IN NS 2 GM/100 ML BAG IVPB SCH (09:30)
[2017-07-10] MEDS: Albuterol-Ipratrop 3 mg / 0.5 (3 ml) UD IH SCH ×3 (12:02→20:10)
--- NOTE | 2017-07-10 17:22 | CARD ---
APPROVED REPORT EKG Measurement Heart [id number] <Conclusion> Marked sinus bradycardia Left ventricular hypertrophy with QRS widening ST & T wave abnormality, consider anterior ischemia Abnormal ECG
[2017-07-10] MEDS: Sodium Chloride 0.9% 1,000 ML IV SCH (18:17)
[2017-07-10] MEDS: Budesonide 0.5 mg/2 ml Inhal Susp UD IH SCH (20:10)
[2017-07-10] MEDS: Arformoterol 15 mcg/2 ml Inh Sol IH SCH (20:10)
--- NOTE | 2017-07-11 02:18 | PN ---
DATE: 07/10/2016 SUBJECTIVE: This patient was seen and evaluated earlier today. This is an 87-year-old patient with past medical history of COPD, dementia, hypertension, TIA, osteoarthritis, CHF, was recently in the hospital for COPD exacerbation, was admitted with the episodes of nausea and vomiting. Some abdominal discomfort mainly in the epigastric and left upper quadrant area. There was no rebound. The patient's family was at bedside at the time of examination. No history of any fever. PAST MEDICAL HISTORY: Other past medical history is significant as above, dyslipidemia, enlarged prostate, anemia, renal chronic kidney disease. ALLERGIES: NO KNOWN DRUG ALLERGIES. SOCIAL HISTORY: Denies smoking or alcohol. FAMILY HISTORY: Noncontributory. REVIEW OF SYSTEMS: Positive as above. Other systems reviewed and negative. PHYSICAL EXAMINATION: GENERAL: The patient is lying on the bed, not in acute distress. VITAL SIGNS: Temperature is 97.5, pulse 63, blood pressure is 134/59, respirations 20, O2 saturation is 95. HEENT: Atraumatic, Anicteric. NECK: Supple. HEART: S1 and S2 heard. LUNGS: Bilateral air entry present. ABDOMEN: Soft. No tenderness. EXTREMITIES: No edema, no cyanosis, no clubbing. NEUROLOGIC: Alert, moves all the extremities. LABORATORY DATA: Hemoglobin 14, hematocrit 41.5, WBC is 10.5, and platelets 269. Chemistry shows BUN 18, creatinine 1.2, total bilirubin 1.5. The patient had a CT scan of the abdomen and pelvis done which was reviewed. It showed right lung opacity, possible pneumonia, cholelithiasis, and haziness around or fat around the prostate suggestive of prostatitis. IMPRESSION: 1. This is an 87-year-old patient admitted with vomiting, nausea and the left upper quadrant pain. The differential diagnoses should include gastroenteritis, peptic ulcer disease, erosive esophagitis. 2. CT scan also revealed cholelithiasis as less likely etiology. 3. Haziness of the prostate and the patient denies any lower abdominal discomfort symptoms. We would check the urinalysis and culture. 4. Possible lung infiltrate, rule out pneumonia. Other comorbidities include chronic obstructive pulmonary disease, dementia, hypertension, transient ischemic attack, osteoarthritis, congestive heart failure. RECOMMENDATIONS: 1. We will start the patient on clear liquid diet. 2. Treatment with the Protonix 40 mg daily IV. 3. Continue the antibiotics for possible pneumonia. We will slowly advance diet based on the clinical course. Thank you very much for allowing us to participate in the care of the patient. Seth Valerio MD
[2017-07-11] MEDS: Albuterol-Ipratrop 3 mg / 0.5 (3 ml) UD IH SCH ×4 (07:37→21:30)
[2017-07-11] MEDS: Arformoterol 15 mcg/2 ml Inh Sol IH SCH ×2 (07:38→21:30)
[2017-07-11] MEDS: Budesonide 0.5 mg/2 ml Inhal Susp UD IH SCH ×2 (07:38→21:30)
[2017-07-11] MEDS: cefTRIAXone 2 GM IN NS 2 GM/100 ML BAG IVPB SCH (09:54)
--- NOTE | 2017-07-11 12:38 | HP ---
DATE: 07/10/2017. CHIEF COMPLAINT: The patient came in to the emergency room complaining of frequent episodes of vomiting and has had for a couple of days. HISTORY OF PRESENT ILLNESS: This is an 87-year-old male with history of chronic dementia, hypertension, COPD, TIA, osteoarthritis and previously had pneumonia in the past with generalized weakness. The patient came into the hospital with the above complaints intermittently. He did have vomited twice for a day, prior to that he does have some discomfort in his upper abdomen. There is no fever. There is no chills noted or denied any chills. Denied any short of breath, diarrhea, headache or dizziness. PAST MEDICAL HISTORY: As above as I mentioned COPD, hypertension, dementia, osteoarthritis, history of dementia with behavior changes including agitations and couple of times disorientations. The patient also had severe osteoarthritis in his shoulders, knees, but walking okay with assistance. ALLERGIES: NO KNOWN ALLERGIES. FAMILY HISTORY: Noncontributory. REVIEW OF SYSTEMS: As in the present illness. He does have the memory problem, forgetfulness, and no concentration at times disorientation. He does have frequent urination. No diarrhea. No other complaints. No constipation. PHYSICAL EXAMINATION: On 07/09/2017; GENERAL: The patient seems in no respiratory distress, sitting in the bed. He denied any chest pain. VITAL SIGNS: As follows; temperature is 97.8, heart rate is 48, blood pressure is 149/67, respirations 14, and saturating 94% in room air. HEAD AND NECK: Normal. No JVD. No thyromegaly. CHEST: Clear. He has diminished breath sounds. CARDIAC: First sound and second sound normal. With extra beats there is some mild systolic murmur. ABDOMEN: Soft. There is mild discomfort in the upper abdomen. No rebound tenderness. Bowel sounds intact. EXTREMITIES: No edema. NEUROLOGIC: The patient moves all extremities. He recognized me, he does have some memory loss, but he answered questions properly. LABORATORY DATA: White count 10.5, hemoglobin 14, hematocrit 41.5, and platelets 269. Chemistry; sodium 141, potassium 4.3, chloride 101, bicarbonate 32, BUN 18, and creatinine 1.2. Liver function test is normal. Troponin is 0.03 negative and proBNP 559. Laboratory study; CT abdomen and pelvis was noted to have haziness in the lower lung consistent with a possible pneumonia. Chest x-ray was negative. But, CT was positive for possible pneumonia. The patient had EKG with sinus rhythm, LVH with ST-T changes, could be ischemia. He does also run sinus bradycardia on the EKG. The patient had also urine test, which was negative for any infections. His coagulation shows PT and PTT was normal range, PT 11.9, INR 1.04 and PTT 33.2. IMPRESSION AND PLAN: This is an 87-year-old male came in with; 1. Some epigastric discomfort, vomiting for a day. We will admit the patient for observations, IV fluids, Gastrointestinal consult Dr. Valerio, IV Protonix, and will follow up clinically. The CAT scan, there is no evidence of any colicystitis. We will follow up in the clinic as per Gastrointestinal recommendations. Clear liquids for now and follow up daily basis. 2. The patient has community acquired pneumonia. We will give him IV Rocephin, Infectious Disease consult, we will follow up clinically. 3. Dementia, hypertension with agitated behavior. We will resume all his medications including Risperdal, Aricept 5 mg, and for any agitations, we will give him may be an anxiolytic medication if needed, at this time, we will hold off on any. We will continue follow up on that. 4. Chronic obstructive pulmonary disease, resume nebulizer inhaled bronchodilators and we will follow up clinically. For his hypertension, give him Cozaar 50 mg the family brought in and probably we will monitor his blood pressure, may need more. Continue aspirin for transient ischemic attack 81 mg and IV fluid and vitamins daily. Cody Aguilar MD
--- NOTE | 2017-07-11 13:23 | CP.PCM.PN ---
<Sarah Andrade - Last Filed: 07/11/17 13:23> Subjective - Date & Time of Evaluation Date of Evaluation: 07/11/17 Time of Evaluation: 11:05 - Subjective Subjective: S&E at bedside, chart reviewed, no acute overnight events. Denies N/V or abdominal pain. No C/o diarrhea or bleeding. Tolerating oral intake, diet to be advanced as tolerated. Objective - Vital Signs/Intake and Output Vital Signs (last 24 hours): Temp Pulse Resp BP Pulse Ox 98.4 F 62 20 175/80 H 96 07/11/17 07:30 07/11/17 09:52 07/11/17 07:30 07/11/17 09:52 07/11/17 07:30 Intake and Output: 07/11/17 07/11/17 06:59 18:59 Intake Total 120 Output Total 200 Balance -80 - Medications Medications: Current Medications Albuterol/Ipratropium (Duoneb 3 Mg/0.5 Mg (3 Ml) Ud) 3 ml IH QIDRESP [facility] Last Admin: 07/11/17 11:04 Dose: 3 ml Amlodipine Besylate (Norvasc) 10 mg PO DAILY [facility] Arformoterol Tartrate (Brovana) 15 mcg IH [id number] [facility] Last Admin: 07/11/17 07:38 Dose: 15 mcg Aspirin (Ecotrin) 81 mg PO DAILY [facility] Last Admin: 07/11/17 09:54 Dose: 81 mg Budesonide (Pulmicort Respules) 0.5 mg IH BIDRESP [facility] Last Admin: 07/11/17 07:38 Dose: 0.5 mg Donepezil HCl (Aricept) 5 mg PO HS [facility] Last Admin: 07/10/17 22:18 Dose: 5 mg Sodium Chloride (Sodium Chloride 0.9%) 1,000 mls @ 50 mls/hr IV .Q20H [facility] Last Admin: 07/10/17 18:17 Dose: 50 mls/hr Ceftriaxone Sodium (Rocephin 2 Gm Ivpb) 2 gm in 100 mls @ 100 mls/hr IVPB DAILY [facility] PRN Reason: Protocol Stop: 07/14/17 10:59 Last Admin: 07/11/17 09:54 Dose: 100 mls/hr Losartan Potassium (Cozaar) 50 mg PO DAILY [facility] Last Admin: 07/11/17 09:52 Dose: 50 mg Pantoprazole Sodium (Protonix Inj) 40 mg IVP DAILY [facility] Last Admin: 07/11/17 09:52 Dose: 40 mg Pyridoxine HCl (Vitamin B6 50 Mg Tab) 50 mg PO DAILY [facility] Last Admin: 07/11/17 09:54 Dose: 50 mg - Labs Labs: PT 11.9 SECONDS (9.4-12.5) 07/09/17 20:05 INR 1.04 (0.93-1.08) 07/09/17 20:05 APTT 33.2 Seconds (25.1-36.5) 07/09/17 20:05 - Constitutional Appears: No Acute Distress - Head Exam Head Exam: NORMOCEPHALIC - Eye Exam Eye Exam: Normal appearance. absent: Scleral icterus - ENT Exam ENT Exam: Mucous Membranes Moist - Neck Exam Neck Exam: Normal Inspection - Respiratory Exam Respiratory Exam: Decreased Breath Sounds, NORMAL BREATHING PATTERN. absent: Rales, Wheezes, Respiratory Distress - Cardiovascular Exam Cardiovascular Exam: +S1, +S2 - GI/Abdominal Exam GI & Abdominal Exam: Soft. absent: Tenderness Assessment and Plan - Assessment and Plan (Free Text) Assessment: Assessment: Improving abdominal pain Differentials to consider is gastroenteritis, peptic ulcer disease erosive hepatitis History of dementia COPD HTN Lung Infiltrate Cholelithiasis on ct scan PLAN: Advance diet as tolerated, advance to full liquid Continue Protonix 40 daily Continue IV antibiotics Seen and discussed with Dr. Valerio. <Seth Valerio V - Last Filed: 07/11/17 23:52> Objective - Vital Signs/Intake and Output Vital Signs (last 24 hours): Temp Pulse Resp BP Pulse Ox 98.4 F 62 20 175/80 H 96 07/11/17 07:30 07/11/17 09:52 07/11/17 07:30 07/11/17 09:52 07/11/17 07:30 Intake and Output: 07/11/17 07/12/17 18:59 06:59 Intake Total 960 600 Output Total 200 275 Balance 760 325 - Medications Medications: Current Medications Albuterol/Ipratropium (Duoneb 3 Mg/0.5 Mg (3 Ml) Ud) 3 ml IH QIDRESP [facility] Last Admin: 07/11/17 21:30 Dose: 3 ml Amlodipine Besylate (Norvasc) 10 mg PO DAILY [facility] Last Admin: 07/11/17 15:15 Dose: Not Given Arformoterol Tartrate (Brovana) 15 mcg IH [id number] [facility] Last Admin: 07/11/17 21:30 Dose: 15 mcg Aspirin (Ecotrin) 81 mg PO DAILY [facility] Last Admin: 07/11/17 09:54 Dose: 81 mg Budesonide (Pulmicort Respules) 0.5 mg IH BIDRESP [facility] Last Admin: 07/11/17 21:30 Dose: 0.5 mg Donepezil HCl (Aricept) 5 mg PO HS [facility] Last Admin: 07/11/17 22:33 Dose: 5 mg Sodium Chloride (Sodium Chloride 0.9%) 1,000 mls @ 50 mls/hr IV .Q20H [facility] Last Admin: 07/11/17 15:46 Dose: 50 mls/hr Ceftriaxone Sodium (Rocephin 2 Gm Ivpb) 2 gm in 100 mls @ 100 mls/hr IVPB DAILY [facility] PRN Reason: Protocol Stop: 07/14/17 10:59 Last Admin: 07/11/17 09:54 Dose: 100 mls/hr Losartan Potassium (Cozaar) 50 mg PO DAILY [facility] Last Admin: 07/11/17 09:52 Dose: 50 mg Pantoprazole Sodium (Protonix Inj) 40 mg IVP DAILY [facility] Last Admin: 07/11/17 09:52 Dose: 40 mg Pyridoxine HCl (Vitamin B6 50 Mg Tab) 50 mg PO DAILY [facility] Last Admin: 07/11/17 09:54 Dose: 50 mg - Labs Labs: PT 11.9 SECONDS (9.4-12.5) 07/09/17 20:05 INR 1.04 (0.93-1.08) 07/09/17 20:05 APTT 33.2 Seconds (25.1-36.5) 07/09/17 20:05 Attending/Attestation - Attestation I have personally seen and examined this patient.: Yes I have fully participated in the care of the patient.: Yes I have reviewed all pertinent clinical information, including history, physical exam and plan: Yes Notes (Text): This is an addendum to GI progress report dictated by Sarah Andrade APN.The patient was seen and examined earlier. Medical records, lab studies, imagings were reviewed. Last 24 hours events reviewed. Agreed with the above treatment plan as outlined in Sarah Andrade APN's notes the with the addition of the following 07/11/17 23:52
[2017-07-11] MEDS: Sodium Chloride 0.9% 1,000 ML IV SCH (15:46)
[2017-07-12 07:37] LABS: BLOOD UREA NITROGEN 7 mg/dL (7-21); CALCIUM 8.8 mg/dL (8.4-10.5); GFR AFRICAN-AMERICAN > 60; GFR NON-AFRICAN AMERICAN > 60
[2017-07-12] MEDS: Arformoterol 15 mcg/2 ml Inh Sol IH SCH ×2 (07:44→20:45)
[2017-07-12] MEDS: Budesonide 0.5 mg/2 ml Inhal Susp UD IH SCH ×2 (07:44→20:45)
[2017-07-12] MEDS: Albuterol-Ipratrop 3 mg / 0.5 (3 ml) UD IH SCH ×3 (07:44→20:45)
[2017-07-12] MEDS: cefTRIAXone 2 GM IN NS 2 GM/100 ML BAG IVPB SCH (09:55)
[2017-07-12 09:58] LABS: HEMOGLOBIN 12.7 g/dL (14.0-18.0); MEAN CELL VOLUME 86.9 fl (80.0-105.0); MEAN CORPUSCULAR HEMOGLOBIN 28.3 pg (25.0-35.0); MEAN CORPUSCULAR HGB CONC 32.6 g/dl (31.0-37.0); MEAN PLATELET VOLUME 10.3 fl (7.0-11.0); RBC 4.49 10^6/uL (3.5-6.1); RED CELL DISTRIBUTION WIDTH 15.2 % (11.5-14.5); WHITE BLOOD COUNT 8.7 10^3/ul (4.5-11.0)
[2017-07-12] MEDS ORDERED: Enoxaparin 40 mg Syringe SC SCH (10:00)
[2017-07-12 10:13] LABS: HDL CHOLESTEROL 45 mg/dL (29-60)
--- NOTE | 2017-07-12 10:20 | CP.PCM.CON ---
Addendum entered and electronically signed by Kelly Wei DO 07/12/17 11:52 : NIHSS 2 (1 for facial droop and 1 for dysarthia) Original Note: <Kelly Wei - Last Filed: 07/12/17 11:50> History of Present Illness - History of Present Illness History of Present Illness: COnsult: ?TIA Mr Eric Blancas, 87M, presents to the emergency department on Monday complaining of intractable vomiting x 2 days associated with epigastric discomfort. He was diagnosed with community acquired pneumonia on rocephin IV. GI is on board, currently working up to r/o gastroenteritis, peptic ulcer, or erosive esophagitis. Today at 9AM, Patient's daughter at bedside reports that pt has mild facial drooping noted. 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 His BP was 190/86, HR 56. CT head: 9x5mm L basal ganglia, acute hemorrhage Pending: carotid dupplex u/s U/A negative CT (+) pneumonia. No colitis or cystitis EKG: sinus bradycardia with LVH and ST-T changes likely ischemic ROS - Denies any fevers, chills, chest pain, shortness of breath, diarrhea, urinary/bowel changes, headache, dizziness, or any other complaint. PMH: TIA on ASA Dementia with behavioral/agitation - risperidal, aricept CHF, HTN COPD, OSteoarthritis, severe in shoulders/kness PSH: FH: Non contributory SH: Ambulated with assostance All: NKDA MEd: Aricept 5 HS B6 ASA 81, Lipitor 10 Past Patient History - Infectious Disease Hx of Infectious Diseases: None - Tetanus Immunizations Tetanus Immunization: Unknown - Past Social History Smoking Status: Former Smoker - CARDIAC Hx Cardiac Disorders: Yes Hx Hypertension: Yes - PULMONARY Hx Respiratory Disorders: Yes Hx Chronic Obstructive Pulmonary Disease (COPD): Yes Hx Pneumonia: Yes - NEUROLOGICAL Hx Neurological Disorder: Yes Hx Dementia: Yes Hx Transient Ischemic Attacks (TIA): Yes - HEENT Hx HEENT Problems: Yes (WEARS RX GLASSES) Hx Cataracts: Yes - RENAL Hx Chronic Kidney Disease: Yes - ENDOCRINE/METABOLIC Hx Endocrine Disorders: No - HEMATOLOGICAL/ONCOLOGICAL Hx Blood Disorders: No - INTEGUMENTARY Hx Dermatological Problems: Yes (MULTIPLE ROUND OLD AGE SPOTS TO FACE,ARMS) - MUSCULOSKELETAL/RHEUMATOLOGICAL Hx Falls: No - GASTROINTESTINAL Hx Gastrointestinal Disorders: No - GENITOURINARY/GYNECOLOGICAL Hx Genitourinary Disorders: Yes - PSYCHIATRIC Hx Psychophysiologic Disorder: No - SURGICAL HISTORY Hx Surgeries: No - ANESTHESIA Hx Anesthesia: No Meds Allergies/Adverse Reactions: Allergies Allergy/AdvReac Type Severity Reaction Status Date / Time No Known Allergies Allergy Verified 06/08/17 07:28 - Medications Medications: Current Medications Albuterol/Ipratropium (Duoneb 3 Mg/0.5 Mg (3 Ml) Ud) 3 ml IH QIDRESP [facility] Last Admin: 07/12/17 07:44 Dose: 3 ml Amlodipine Besylate (Norvasc) 10 mg PO DAILY [facility] Last Admin: 07/12/17 09:41 Dose: 10 mg Arformoterol Tartrate (Brovana) 15 mcg IH [id number] [facility] Last Admin: 07/12/17 07:44 Dose: 15 mcg Aspirin (Ecotrin) 81 mg PO DAILY [facility] Last Admin: 07/11/17 09:54 Dose: 81 mg Atorvastatin Calcium (Lipitor) 10 mg PO DIN [facility] Budesonide (Pulmicort Respules) 0.5 mg IH BIDRESP [facility] Last Admin: 07/12/17 07:44 Dose: 0.5 mg Donepezil HCl (Aricept) 5 mg PO HS [facility] Last Admin: 07/11/17 22:33 Dose: 5 mg Enoxaparin Sodium (Lovenox) 40 mg SC DAILY [facility] PRN Reason: Protocol Ceftriaxone Sodium (Rocephin 2 Gm Ivpb) 2 gm in 100 mls @ 100 mls/hr IVPB DAILY [facility] PRN Reason: Protocol Stop: 07/14/17 10:59 Last Admin: 07/12/17 09:55 Dose: 100 mls/hr Losartan Potassium (Cozaar) 100 mg PO DAILY [facility] Pantoprazole Sodium (Protonix Inj) 40 mg IVP DAILY [facility] Last Admin: 07/12/17 09:44 Dose: 40 mg Pyridoxine HCl (Vitamin B6 50 Mg Tab) 50 mg PO DAILY [facility] Last Admin: 07/12/17 09:42 Dose: 50 mg Physical Exam - Constitutional Appears: No Acute Distress - Head Exam Head Exam: ATRAUMATIC, NORMAL INSPECTION, NORMOCEPHALIC - Eye Exam Eye Exam: EOMI, Normal appearance, PERRL. absent: Scleral icterus Pupil Exam: NORMAL ACCOMODATION - ENT Exam ENT Exam: Mucous Membranes Moist - Respiratory Exam Respiratory Exam: Clear to Auscultation Bilateral, NORMAL BREATHING PATTERN - Cardiovascular Exam Cardiovascular Exam: REGULAR RHYTHM - GI/Abdominal Exam GI & Abdominal Exam: Normal Bowel Sounds, Soft. absent: Tenderness - Extremities Exam Extremities exam: Positive for: pedal pulses present. Negative for: calf tenderness, pedal edema - Neurological Exam Additional comments: Face: Deepened nasal-labial fold on R Speech: Dysarthia on Polish Recall: did not assess Motor: UE 4/5, L shoulder pain (ROM limited by pain) LE 4/5 Finger to finger coordination: intact. resting Tremor and intentional tremor b/l , worst in L rapid-alternating movement: + babinski b/l - Psychiatric Exam Psychiatric exam: Flat Affect - Skin Skin Exam: Dry, Warm Results - Vital Signs Recent Vital Signs: Last Vital Signs Temp 98.0 F 07/12/17 07:30 Pulse 56 L 07/12/17 07:30 Resp 20 07/12/17 07:30 BP 168/70 H 07/12/17 09:41 Pulse Ox 95 07/12/17 07:30 - Labs Result Diagrams: 07/12/17 09:50 07/12/17 06:30 Labs: Laboratory Results - last 24 hr 07/12/17 07/12/17 07/12/17 06:30 06:30 09:50 WBC 8.7 RBC 4.49 Hgb 12.7 L Hct 39.0 L MCV 86.9 MCH 28.3 MCHC 32.6 RDW 15.2 H Plt Count 253 MPV 10.3 Sodium 139 Potassium 3.7 Chloride 104 Carbon Dioxide 26 Anion Gap 13 BUN 7 Creatinine 0.9 Est GFR ( Amer) > 60 Est GFR (Non-Af Amer) > 60 Random Glucose 86 Calcium 8.8 Triglycerides 109 Cholesterol 173 HDL Cholesterol 45 Assessment & Plan - Assessment and Plan (Free Text) Plan: Mr Eric Blancas, 87M, presents to the emergency department on Monday complaining of intractable vomiting x 2 days associated with epigastric discomfort. He has PMHx TIA on ASA, Dementia with behavioral/agitation on risperidal & aricept, CHF, COPD, osteoarthritis. He was diagnosed with community acquired pneumonia on rocephin IV. Today at 9AM, Patient's daughter at bedside reports that pt has mild facial drooping noted. 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 His BP was 190/86, HR 56. 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 Do not drop blood pressure more than 20mmHg at a time. - Maintain blood glucose 140-180 - PT/OT/ST - ICU consult s/r/d/w Dr. Jones <Lizandro Jones - Last Filed: 07/12/17 12:03> Meds - Medications Medications: Current Medications Albuterol/Ipratropium (Duoneb 3 Mg/0.5 Mg (3 Ml) Ud) 3 ml IH QIDRESP [facility] Last Admin: 07/12/17 11:17 Dose: 3 ml Amlodipine Besylate (Norvasc) 10 mg PO DAILY [facility] Last Admin: 07/12/17 09:41 Dose: 10 mg Arformoterol Tartrate (Brovana) 15 mcg IH [id number] [facility] Last Admin: 07/12/17 07:44 Dose: 15 mcg Budesonide (Pulmicort Respules) 0.5 mg IH BIDRESP [facility] Last Admin: 07/12/17 07:44 Dose: 0.5 mg Donepezil HCl (Aricept) 5 mg PO HS [facility] Last Admin: 07/11/17 22:33 Dose: 5 mg Ceftriaxone Sodium (Rocephin 2 Gm Ivpb) 2 gm in 100 mls @ 100 mls/hr IVPB DAILY [facility] PRN Reason: Protocol Stop: 07/14/17 10:59 Last Admin: 07/12/17 09:55 Dose: 100 mls/hr Losartan Potassium (Cozaar) 100 mg PO DAILY [facility] Pantoprazole Sodium (Protonix Inj) 40 mg IVP DAILY [facility] Last Admin: 07/12/17 09:44 Dose: 40 mg Pyridoxine HCl (Vitamin B6 50 Mg Tab) 50 mg PO DAILY [facility] Last Admin: 07/12/17 09:42 Dose: 50 mg Results - Vital Signs Recent Vital Signs: Last Vital Signs Temp 98.0 F 07/12/17 07:30 Pulse 56 L 07/12/17 07:30 Resp 20 07/12/17 07:30 BP 174/76 H 07/12/17 11:28 Pulse Ox 95 07/12/17 07:30 - Labs Result Diagrams: 07/12/17 09:50 07/12/17 06:30 Labs: Laboratory Results - last 24 hr 07/12/17 07/12/17 07/12/17 06:30 06:30 09:50 WBC 8.7 RBC 4.49 Hgb 12.7 L Hct 39.0 L MCV 86.9 MCH 28.3 MCHC 32.6 RDW 15.2 H Plt Count 253 MPV 10.3 Sodium 139 Potassium 3.7 Chloride 104 Carbon Dioxide 26 Anion Gap 13 BUN 7 Creatinine 0.9 Est GFR ( Amer) > 60 Est GFR (Non-Af Amer) > 60 Random Glucose 86 Calcium 8.8 Triglycerides 109 Cholesterol 173 LDL Cholesterol Direct 91 HDL Cholesterol 45 Attending/Attestation - Attestation I have personally seen and examined this patient.: Yes I have fully participated in the care of the patient.: Yes I have reviewed all pertinent clinical information: Yes
[2017-07-12 10:24] LABS: LDL CHOLESTEROL 91 mg/dL (0-129)
--- NOTE | 2017-07-12 11:17 | CT ---
PROCEDURE: CT HEAD WITHOUT CONTRAST. HISTORY: ? AMS COMPARISON: 12/29/2016. TECHNIQUE: Axial computed tomography images were obtained through the head/brain without intravenous contrast. Radiation dose: Total exam DLP = 808.77 mGy-cm. This CT exam was performed using one or more of the following dose reduction techniques: Automated exposure control, adjustment of the mA and/or kV according to patient size, and/or use of iterative reconstruction technique. FINDINGS: HEMORRHAGE: There is a 9 x 5 mm high attenuation focus in the left basal ganglia. BRAIN: There are old infarctions in the right basal ganglia, left caudate head and anterior basal ganglia, right rivera radiata and right thalamus. There are severe chronic microangiopathic changes. There is no mass, mass effect or abnormal extra-axial fluid collection. There are coarse atherosclerotic calcifications in the cavernous carotid arteries and right vertebral artery. VENTRICLES: There is moderate age-related global parenchymal volume loss and proportionate enlargement of the ventricles and cortical sulci. CALVARIUM: The skull base and calvarium are normal. PARANASAL SINUSES: Predominantly clear. MASTOID AIR CELLS: Predominantly clear. OTHER FINDINGS: None. IMPRESSION: 1. 9 x 5 mm acute hemorrhage in the left basal ganglia. 2. Old lacunar infarctions in the right rivera radiata, right basal ganglia, right thalamus, left caudate head and left anterior basal ganglia. 3. Severe chronic microangiopathic changes and moderate age-related global parenchymal volume loss. Critical findings were discussed with Dr Reina Conway on 07/12/2017 at 11:15 a.m.
--- NOTE | 2017-07-12 11:58 | CP.PCM.PN ---
<Sarah Andrade - Last Filed: 07/12/17 11:56> Subjective - Date & Time of Evaluation Date of Evaluation: 07/12/17 Time of Evaluation: 11:15 - Subjective Subjective: Seen and examined at the bedside, patient just returned from CAT scan, patient noted to have right-sided facial droop, CT scan reported a 9 x 5 mm acute hemorrhage in the left basal ganglia. Neurology at bedside. The patient denies nausea, vomiting, or abdominal pain. No weakness is noted on extremities. Patient is reported to be tolerating oral intake no complaint of difficulty swallowing last night tender or breakfast this a.m. Objective - Vital Signs/Intake and Output Vital Signs (last 24 hours): Temp Pulse Resp BP Pulse Ox 98.0 F 56 L 20 174/76 H 95 07/12/17 07:30 07/12/17 07:30 07/12/17 07:30 07/12/17 11:28 07/12/17 07:30 Intake and Output: 07/12/17 07/12/17 06:59 18:59 Intake Total 600 Output Total 275 Balance 325 - Medications Medications: Current Medications Albuterol/Ipratropium (Duoneb 3 Mg/0.5 Mg (3 Ml) Ud) 3 ml IH QIDRESP [facility] Last Admin: 07/12/17 11:17 Dose: 3 ml Amlodipine Besylate (Norvasc) 10 mg PO DAILY [facility] Last Admin: 07/12/17 09:41 Dose: 10 mg Arformoterol Tartrate (Brovana) 15 mcg IH [id number] [facility] Last Admin: 07/12/17 07:44 Dose: 15 mcg Budesonide (Pulmicort Respules) 0.5 mg IH BIDRESP [facility] Last Admin: 07/12/17 07:44 Dose: 0.5 mg Donepezil HCl (Aricept) 5 mg PO HS [facility] Last Admin: 07/11/17 22:33 Dose: 5 mg Ceftriaxone Sodium (Rocephin 2 Gm Ivpb) 2 gm in 100 mls @ 100 mls/hr IVPB DAILY [facility] PRN Reason: Protocol Stop: 07/14/17 10:59 Last Admin: 07/12/17 09:55 Dose: 100 mls/hr Losartan Potassium (Cozaar) 100 mg PO DAILY [facility] Pantoprazole Sodium (Protonix Inj) 40 mg IVP DAILY [facility] Last Admin: 07/12/17 09:44 Dose: 40 mg Pyridoxine HCl (Vitamin B6 50 Mg Tab) 50 mg PO DAILY [facility] Last Admin: 07/12/17 09:42 Dose: 50 mg - Labs Labs: 07/12/17 09:50 07/12/17 06:30 PT 11.9 SECONDS (9.4-12.5) 07/09/17 20:05 INR 1.04 (0.93-1.08) 07/09/17 20:05 APTT 33.2 Seconds (25.1-36.5) 07/09/17 20:05 - Constitutional Appears: No Acute Distress - Eye Exam Eye Exam: Normal appearance. absent: Scleral icterus - ENT Exam ENT Exam: Mucous Membranes Moist - Neck Exam Neck Exam: Normal Inspection - Respiratory Exam Respiratory Exam: Decreased Breath Sounds, NORMAL BREATHING PATTERN. absent: Respiratory Distress - Cardiovascular Exam Cardiovascular Exam: +S1, +S2 - GI/Abdominal Exam GI & Abdominal Exam: Soft, Normal Bowel Sounds. absent: Guarding, Tenderness, Organomegaly, Rebound - Extremities Exam Extremities Exam: absent: Calf Tenderness, Pedal Edema - Neurological Exam Neurological Exam: Alert, Awake, Oriented x3 Neuro motor strength exam: Left Upper Extremity: 4, Right Upper Extremity: 4, Left Lower Extremity: 4, Right Lower Extremity: 4 Additional comments: right facial droop noted - Skin Skin Exam: Dry, Warm Assessment and Plan - Assessment and Plan (Free Text) Assessment: Assessment: New Onset 9x5mm Acute Hemorrahage Left Basil Ganglia Improving abdominal pain Differentials to consider is gastroenteritis, peptic ulcer disease erosive hepatitis History of dementia H/O TIA COPD HTN Lung Infiltrate Cholelithiasis on ct scan PLAN: continue full liquid, consider to advance as tolerated, but will monitor patient closely for dysphagia with new onset of bleed Continue Protonix 40 daily Continue IV antibiotics neuro FU/work up for stroke carotid US Seen and discussed with Dr. Valerio. <Seth Valerio V - Last Filed: 07/12/17 23:36> Objective - Vital Signs/Intake and Output Vital Signs (last 24 hours): Temp Pulse Resp BP Pulse Ox 98.7 F 70 16 149/52 L 93 L 07/12/17 12:00 07/12/17 18:00 07/12/17 18:00 07/12/17 18:00 07/12/17 18:00 Intake and Output: 07/12/17 02 18:59 06:59 Intake Total 477.9 Output Total 1100 Balance -622.1 - Medications Medications: Current Medications Albuterol/Ipratropium (Duoneb 3 Mg/0.5 Mg (3 Ml) Ud) 3 ml IH QIDRESP [facility] Last Admin: 07/12/17 20:45 Dose: 3 ml Amlodipine Besylate (Norvasc) 10 mg PO DAILY [facility] Last Admin: 07/12/17 09:41 Dose: 10 mg Arformoterol Tartrate (Brovana) 15 mcg IH [id number] [facility] Last Admin: 07/12/17 20:45 Dose: 15 mcg Budesonide (Pulmicort Respules) 0.5 mg IH BIDRESP [facility] Last Admin: 07/12/17 20:45 Dose: 0.5 mg Donepezil HCl (Aricept) 5 mg PO HS [facility] Last Admin: 07/12/17 22:43 Dose: 5 mg Ceftriaxone Sodium (Rocephin 2 Gm Ivpb) 2 gm in 100 mls @ 100 mls/hr IVPB DAILY [facility] PRN Reason: Protocol Stop: 07/14/17 10:59 Last Admin: 07/12/17 09:55 Dose: 100 mls/hr Nicardipine HCl (Cardene Iv Premix) 20 mg in 200 mls @ 50 mls/hr IV .Q4H PRN; Protocol; 5 MG/HR PRN Reason: TITRATE PER MD ORDER Last Titration: 07/12/17 18:45 Dose: 2.5 mg/hr, 25 mls/hr Losartan Potassium (Cozaar) 100 mg PO DAILY [facility] Pantoprazole Sodium (Protonix Inj) 40 mg IVP DAILY [facility] Last Admin: 07/12/17 09:44 Dose: 40 mg Pyridoxine HCl (Vitamin B6 50 Mg Tab) 50 mg PO DAILY [facility] Last Admin: 07/12/17 09:42 Dose: 50 mg - Labs Labs: 07/12/17 09:50 07/12/17 06:30 PT 11.9 SECONDS (9.4-12.5) 07/09/17 20:05 INR 1.04 (0.93-1.08) 07/09/17 20:05 APTT 33.2 Seconds (25.1-36.5) 07/09/17 20:05 Attending/Attestation - Attestation I have personally seen and examined this patient.: Yes I have fully participated in the care of the patient.: Yes I have reviewed all pertinent clinical information, including history, physical exam and plan: Yes Notes (Text): This is an addendum to GI progress report dictated by Sarah Andrade APN.The patient was seen and examined earlier. Medical records, lab studies, imagings were reviewed. Last 24 hours events reviewed. Agreed with the above treatment plan as outlined in Sarah Andrade APN's notes the with the addition of the following 07/12/17 23:35
[2017-07-12] MEDS: Nicardipine 20 MG/200 ML 20 MG/200 ML BAG IV PRN (13:04)
--- NOTE | 2017-07-12 17:31 | US ---
PROCEDURE: Bilateral carotid artery duplex ultrasound HISTORY: Carotid stenosis TIA PHYSICIAN(S): Antony Alex MD. TECHNIQUE: Duplex sonography and color-flow Doppler were used to evaluate the carotid bifurcations and limited segments of the vertebral arteries bilaterally. FINDINGS: There is moderate to extensive smooth heterogeneous plaque noted at the carotid bifurcations bilaterally. The peak systolic velocity in the proximal right internal carotid artery is 162 cm/sec. This corresponds to a 60-79 percent proximal right ICA stenosis. Moderately elevated systolic velocities are noted in the proximal right external carotid artery. There is antegrade flow in the atretic right vertebral artery. The peak systolic velocity in the proximal left internal carotid artery is 241 cm/sec. The end-diastolic velocity at this location is 38 cm/second. This corresponds to a 60-79 percent proximal left ICA stenosis. Normal systolic velocities are noted in the proximal left external carotid artery. There is blunted antegrade flow in the atretic left vertebral artery. IMPRESSION: 1. Bilateral 60-79 percent proximal ICA stenoses. 2. 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
--- NOTE | 2017-07-12 17:37 | CP.PCM.PN ---
Subjective - Date & Time of Evaluation Date of Evaluation: 07/12/17 Time of Evaluation: 11:32 - Subjective Subjective: Code Stroke note Code stroke called at 11:30AM. Patient is an 87yo male with history of TIA, dementia, CHF, HTN, COPD and osteoarthritis that [place] [facility] [place] associated with nausea/vomiting. Patient's family had reported earlier that his speech seemed slurred and he had mild left- sided facial droop. On arrival, patient was alert, oriented and answering questions appropriately. He was able to follow simple commands. No focal deficits or sensory deficits were noted on examination. CT Head was reviewed which revealed a 9x5mm acute hemorrhage in the left basal ganglia. Case was discussed neurology, Dr. Jones and management was as instructed by neurology team. ICU was consulted as well. NIHSS was performed and noted to be 2 at the time of evaluation. Patient denied focal weakness, numbness, tingling, chest pain, palpitations, SOB, fever, chills, cough. 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 Aguilar was notified Objective - Vital Signs/Intake and Output Vital Signs (last 24 hours): Temp Pulse Resp BP Pulse Ox 98.7 F 91 H 22 144/71 95 07/12/17 12:00 07/12/17 13:00 07/12/17 13:00 07/12/17 13:04 07/12/17 13:00 Intake and Output: 07/12/17 07/12/17 06:59 18:59 Intake Total 600 Output Total 275 Balance 325 - Medications Medications: Current Medications Albuterol/Ipratropium (Duoneb 3 Mg/0.5 Mg (3 Ml) Ud) 3 ml IH QIDRESP [facility] Last Admin: 07/12/17 11:17 Dose: 3 ml Amlodipine Besylate (Norvasc) 10 mg PO DAILY [facility] Last Admin: 07/12/17 09:41 Dose: 10 mg Arformoterol Tartrate (Brovana) 15 mcg IH [id number] [facility] Last Admin: 07/12/17 07:44 Dose: 15 mcg Budesonide (Pulmicort Respules) 0.5 mg IH BIDRESP [facility] Last Admin: 07/12/17 07:44 Dose: 0.5 mg Donepezil HCl (Aricept) 5 mg PO HS [facility] Last Admin: 07/11/17 22:33 Dose: 5 mg Ceftriaxone Sodium (Rocephin 2 Gm Ivpb) 2 gm in 100 mls @ 100 mls/hr IVPB DAILY [facility] PRN Reason: Protocol Stop: 07/14/17 10:59 Last Admin: 07/12/17 09:55 Dose: 100 mls/hr Nicardipine HCl (Cardene Iv Premix) 20 mg in 200 mls @ 50 mls/hr IV .Q4H PRN; Protocol; 5 MG/HR PRN Reason: TITRATE PER MD ORDER Last Admin: 07/12/17 13:04 Dose: 5 mg/hr, 50 mls/hr Losartan Potassium (Cozaar) 100 mg PO DAILY [facility] Pantoprazole Sodium (Protonix Inj) 40 mg IVP DAILY [facility] Last Admin: 07/12/17 09:44 Dose: 40 mg Pyridoxine HCl (Vitamin B6 50 Mg Tab) 50 mg PO DAILY [facility] Last Admin: 07/12/17 09:42 Dose: 50 mg - Labs Labs: 07/12/17 09:50 07/12/17 06:30 PT 11.9 SECONDS (9.4-12.5) 07/09/17 20:05 INR 1.04 (0.93-1.08) 07/09/17 20:05 APTT 33.2 Seconds (25.1-36.5) 07/09/17 20:05
--- NOTE | 2017-07-12 22:55 | PN ---
DATE: 07/11/2017 SUBJECTIVE: The patient is clinically stable. He did complain of some GI discomfort. No vomiting. No nausea. He seems stable. No complaints. Lying in bed. Responding to his name and what I ask him in the [place]. He did not have any pain. PHYSICAL EXAMINATION VITAL SIGNS: Temperature 98.4, heart rate is 56, blood pressure 175/80, respirations 20 and saturation 96%. HEAD AND NECK: Normal. No JVD. No thyromegaly. CHEST: Clear with good air entry. CARDIAC: First sound and second sounds are normal. ABDOMEN: Soft. Just mild sounds come from the upper abdomen, otherwise, none. Bowel sounds intact and whole abdomen is otherwise normal. EXTREMITIES: No edema. NEUROLOGIC: He is moving all his upper extremities and lower extremities. Responding well. IMPRESSION AND PLAN: 1. Acute gastroenteritis. Continue current therapy. The patient is otherwise medically stable. Continue Protonix. 2. Chronic obstructive pulmonary disease, chronic. Continue Brovana and continue DuoNeb nebulizer treatment. 3. Hypertension. He has been getting Cozaar 50 mg. We will add Norvasc 10 mg to his current regimen. We will repeat blood pressure monitoring. We will follow up on that. 4. Chronic dementia with history of agitation, seems stable now. No agitated behavior. The patient is otherwise doing well. Continue current therapy. We will follow up in the morning. Cody Aguilar MD
--- NOTE | 2017-07-12 23:41 | PN ---
DATE: 07/12/2017 SUBJECTIVE: The patient was seen in the morning, has noted facial asymmetry and the patient was sent for CAT scan to be done. Otherwise, he has no new complaints. He is responding properly. He has no any complaints, no abdominal pain, no complaints. PHYSICAL EXAMINATION: VITAL SIGNS: Temperature is 98, heart rate is 69, blood pressure is 158/77, respirations 18, and saturation is 100% on room air. HEAD AND NECK: Normal except for right facial droop. CHEST: Clear with good air entry. CARDIAC: First sound and second sound normal. ABDOMEN: Soft, nontender. EXTREMITIES: No edema. NEUROLOGICAL: The patient seems moving his upper and lower extremities, he is responding properly to calling his name and answering question, but the patient is in abdominal pain. LABORATORY DATA: Labs came 8.7 white count, hemoglobin 12.7, hematocrit 39, platelets 253. Chemistry, sodium 139, potassium 3.7, chloride 104, bicarbonate 26, BUN 7, creatinine 0.9, blood sugar 86, calcium 8.8. Liver enzyme is normal. BNP 559. The patient also has lipid profile, triglycerides 109, cholesterol 173, LDL 91 and his HDL 45. The patient had a CT came back there is acute bleed 5 to 9 mm in the left basal ganglia and there is microangiopathy of the blood vessels of the brain with brain atrophy. The patient also had carotid ultrasound which showed 60% to 79% stenosis bilaterally. Would mention also some detailed CT findings, there is a 5 to 9 mm high attenuation focus in the left basal ganglia which is consistent with hemorrhage. There are infarctions in the right basal ganglia, it is old, and left caudate and left anterior basal which is old, also there are infarctions in the right basal ganglia and right rivera radiata and old lacunar infarctions. There is also severe microangiopathic changes, moderate age-related global parenchymal volume loss. IMPRESSION AND PLAN: 1. Acute cerebrovascular accident due to hypertension, seems running high. We will continue Norvasc. We will increase the Cozaar to 100 mg and the patient received some blood pressure medications, nicardipine and code stroke was called and the patient was sent in the unit for further treatment. 2. Chronic obstructive pulmonary disease exacerbation. Continue nebulizer treatment. 3. Acute gastritis, stable at this moment, continue Protonix. 4. Dementia and history of multiple cerebrovascular accidents in the past. At this moment, we will hold off on any aspirin and continue monitor the patient clinically. The patient will be transferred to CCU for code stroke and monitoring the patient. Cody Aguilar MD
--- NOTE | 2017-07-13 00:26 | CON ---
DATE: 07/12/2017 HISTORY OF PRESENT ILLNESS: The patient is seen and examined at bedside. This is an 87-year-old gentleman with history of COPD, coronary artery disease, dementia, hypertension, who presented to [facility] with frequent episode of vomiting for a couple of days. He also had some epigastric pain. The patient was seen by GI Service. Presumptive diagnosis of peptic ulcer disease versus erosive esophagitis was made. Cholelithiasis based on the CT scan was deemed possible, but less likely. The patient's symptoms somewhat improved, however, today the patient developed some dysarthria and right nasolabial fold flattening. CAT scan of the head revealed lacunar infarct in left basal ganglia. The size about 9 x 5 mm. The patient was transferred to ICU for blood pressure management. No nausea, no vomiting, no diarrhea, no constipation, no fever, no chills, no sweats. PAST MEDICAL HISTORY: COPD, hypertension, dementia, osteoarthritis. ALLERGIES: NKDA. FAMILY HISTORY: Noncontributory. REVIEW OF SYSTEMS: Review of 12-organ system other than mentioned in history of present illness is negative. MEDICATIONS: DuoNeb every 6 hours, lidocaine, Brovana, budesonide, Aricept, hydralazine, losartan, Cardene drip, Protonix, pyridoxine, ceftriaxone. PHYSICAL EXAMINATION: VITAL SIGNS: Blood pressure 144/71, heart rate 91, respiratory 22, oxygen saturation 95% on room air. HEENT: Head and neck atraumatic. LUNGS: Clear to auscultation bilaterally. HEART: Regular rate and rhythm. S1, S2 normal. ABDOMEN: Soft, nontender and nondistended. MUSCULOSKELETAL: No C/C/E. Some chronic cellulitic changes in the both lower extremities. SKIN: Moist. PSYCH: The patient is alert and awake, following commands. NEUROLOGIC: The patient has flattening of the right nasolabial fold. He is unable to raise up his right eyebrow and has a tongue deviation to the right side. LABORATORY DATA: WBC 8.7, hemoglobin 12.7, platelet count 253. Sodium 139, potassium 3.7, chloride 104, carbon dioxide 26. BUN 7, creatinine 0.9, down from 1.2. Glucose 86. INR 1.04. Head CT showed 9 x 5 mm acute hemorrhage in the left basal ganglia. Old lacunar infarction in the right rivera radiata. Right basal ganglia, right thalamus, left caudate head and left anterior basal ganglia severe chronic microangiopathic changes and moderate age-related global parenchymal volume loss. Chest x-ray performed 3 days ago showed questionable small left pleural effusion, but otherwise no acute pulmonary findings. Abdominal and pelvic CAT scan revealed asymmetric right lower lung hazy opacity, possible developing infection and inflammatory process. Clinical correlation recommended. Cholelithiasis without evidence of cholecystitis. Haziness in the fat surrounding the prostate. 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 At present time, we will proceed with Intensive Care Unit admission for blood pressure control and we will maintain it between 140 and 160 systolic. If need be, we will start Cardene drip. The patient will be n.p.o. until swallow evaluation clears him for some diet. Neurology consult appreciated. We will continue to target euvolemia, euglycemia, normothermia and oxygen saturation more than 90%. We will avoid antiplatelets and anticoagulants at present time. Deep venous thrombosis and gastrointestinal prophylaxis. Aspiration precaution. We will maintain euvolemia, euglycemia and normothermia and oxygen saturation more than 90%. ccm time 40 min Bucky Yoo MD MTDD
[2017-07-13] MEDS: Nicardipine 20 MG/200 ML 20 MG/200 ML BAG IV PRN (03:38)
--- NOTE | 2017-07-13 07:16 | CP.CCUPN ---
<Mildred Avelar - Last Filed: 07/13/17 11:09> CCU Subjective - Physician Review Subjective (Free Text): 07/13/17 09:06 Patient seen and examined at bedside. Nursing reported no acute events overnight and patient was afebrile. Patient's cardene gtt currently at 2.5mcg/ hr. Patient is AO x 1 and denied any pain. Complete ROS unobtainable. Critical Care Time Spent (in minutes): 45 CCU Objective - Vital Signs / Intake & Output Vital Signs (Last 4 hours): Vital Signs Pulse 07/13/17 04:00 89 Intake and Output (Last 8hrs): Intake & Output 07/12/17 07/13/17 07/13/17 22:59 06:59 14:59 Intake Total 562.0 Output Total 1100 Balance -538.0 Intake: IV 562.0 Left Forearm 364 Output: Urine 1100 Urine, Voided 1100 Other: # Voids Urine, Voided 5 - Physical Exam Head: Positive for: Atraumatic, Normocephalic Pupils: Positive for: PERRL Extroacular Muscles: Positive for: EOMI Conjunctiva: Positive for: Normal Mouth: Positive for: Moist Mucous Membranes Neck: Positive for: Normal Range of Motion Respiratory/Chest: Positive for: Clear to Auscultation, Good Air Exchange. Negative for: Respiratory Distress, Accessory Muscle Use Cardiovascular: Positive for: Regular Rate and Rhythm, Normal S1, S2. Negative for: Murmurs Abdomen: Positive for: Normal Bowel Sounds. Negative for: Tenderness, Distention, Peritoneal Signs Back: Positive for: Normal Inspection. Negative for: CVA Tenderness, Midline Tenderness, Paraspinal Tenderness Upper Extremity: Positive for: Normal Inspection. Negative for: Cyanosis, Edema Lower Extremity: Positive for: Normal Inspection. Negative for: Edema Neurological: Positive for: Motor Func Grossly Intact, Normal Sensory Function, Other (R sided facial droop and deep nasal-labial fold on the R; patient moving all 4 extremities and ) Skin: Positive for: Warm, Dry, Normal Color. Negative for: Rashes Psychiatric: Positive for: Alert. Negative for: Oriented x 3, Normal Insight, Normal Concentration - Medications Active Medications: Active Medications Generic Name Dose Route Start Last Admin Trade Name Freq PRN Reason Stop Dose Admin Albuterol/Ipratropium 3 ml 07/10/17 11:30 07/12/17 20:45 Duoneb 3 Mg/0.5 Mg (3 Ml) Ud IH 3 ml QIDRESP RYLIE Administration Amlodipine Besylate 10 mg 07/11/17 10:30 07/12/17 09:41 Norvasc PO 10 mg DAILY RYLIE Administration Arformoterol Tartrate 15 mcg 07/10/17 20:00 07/12/17 20:45 Brovana IH 15 mcg [id number] RYLIE Administration Budesonide 0.5 mg 07/10/17 09:00 07/12/17 20:45 Pulmicort Respules IH 0.5 mg BIDRESP RYLIE Administration Donepezil HCl 5 mg 07/10/17 22:00 07/12/17 22:43 Aricept PO 5 mg HS RYLIE Administration Ceftriaxone Sodium 2 gm in 100 mls @ 100 mls/hr 07/10/17 10:00 07/12/17 09:55 Rocephin 2 Gm Ivpb IVPB 07/14/17 10:59 100 mls/hr DAILY RYLIE Administration Protocol Nicardipine HCl 20 mg in 200 mls @ 50 mls/hr 07/12/17 12:54 07/13/17 03:38 Cardene Iv Premix IV 2.5 mg/hr .Q4H PRN 25 mls/hr TITRATE PER MD ORDER Administration Protocol 5 MG/HR Losartan Potassium 100 mg 07/13/17 10:00 Cozaar PO DAILY RYLIE Pantoprazole Sodium 40 mg 07/10/17 10:00 07/12/17 09:44 Protonix Inj IVP 40 mg DAILY RYLIE Administration Pyridoxine HCl 50 mg 07/10/17 11:45 07/12/17 09:42 Vitamin B6 50 Mg Tab PO 50 mg DAILY RYLIE Administration - Patient Studies Lab Studies: Lab Studies 07/12/17 07/12/17 07/12/17 Range/Units 09:50 06:30 06:30 WBC 8.7 (4.5-11.0) 10^3/ul RBC 4.49 (3.5-6.1) 10^6/uL Hgb 12.7 L (14.0-18.0) g/dL Hct 39.0 L (42.0-52.0) % MCV 86.9 (80.0-105.0) fl MCH 28.3 (25.0-35.0) pg MCHC 32.6 (31.0-37.0) g/dl RDW 15.2 H (11.5-14.5) % Plt Count 253 (120.0-450.0) 10^3/uL MPV 10.3 (7.0-11.0) fl Sodium 139 (132-148) mmol/L Potassium 3.7 (3.6-5.0) mmol/L Chloride 104 (98-107) mmol/L Carbon Dioxide 26 (21-33) mmol/L Anion Gap 13 (10-20) BUN 7 (7-21) mg/dL Creatinine 0.9 (0.8-1.5) mg/dl Est GFR ( Amer) > 60 Est GFR (Non-Af Amer) > 60 Random Glucose 86 (70-110) mg/dL Calcium 8.8 (8.4-10.5) mg/dL Triglycerides 109 (35-160) mg/dL Cholesterol 173 (130-200) mg/dL LDL Cholesterol Direct 91 (0-129) mg/dL HDL Cholesterol 45 (29-60) mg/dL Laboratory Results - last 24 hr 07/12/17 07/12/17 07/12/17 06:30 06:30 09:50 WBC 8.7 RBC 4.49 Hgb 12.7 L Hct 39.0 L MCV 86.9 MCH 28.3 MCHC 32.6 RDW 15.2 H Plt Count 253 MPV 10.3 Sodium 139 Potassium 3.7 Chloride 104 Carbon Dioxide 26 Anion Gap 13 BUN 7 Creatinine 0.9 Est GFR ( Amer) > 60 Est GFR (Non-Af Amer) > 60 Random Glucose 86 Calcium 8.8 Triglycerides 109 Cholesterol 173 LDL Cholesterol Direct 91 HDL Cholesterol 45 Review of Systems - Review of Systems Systems not reviewed;Unavailable: Dementia Assessment/Plan - Assessment and Plan (Free Text) Assessment: 87yo male PMHx TIA on ASA, CHF, HTN, COPD, OA, Dementia presented originally to ED with epigastric pain and vomiting. Patient was diagnosed with CAP and started on IV Rocephin. When on the floors patient was noted to have a R facial droop and dysarthria by family on 07/12. Code stroke was called and patient was taken for STAT head CT showed 9x5mm acute hemorrhage in L basal ganglia. Patient transferred to ICU for further monitoring. Plan: Neuro -Carotid A u/s: b/l 60-79% proximal ICA stenoses; vertebral arteries are atretic b/l -repeat head CT: no intracranial mass, hemorrhage or acute infarct. Numerous basal ganglia and thalamic lacunar infarcts and b/l old pontine lacunar infarcts. Extensive chronic white matter ischemic changes. -CT head: 9x5mm acute hemorrhage in the L basal ganglia; old lacunar infarctions in the R rivera radiata, R basal ganglia, R thalamus, L caudate head and L anterior basal ganglia; severe chronic microangiopathic changes and moderate age-related global parenchymal volume loss. -Norvasc and Cozaar -Hydralazine 10mg ivp rprn -Cardene gtt to be tapered off -BP systolic 130-140mmHg goal -continue home aricept -vitamin B6 daily -Neuro on board Cardio -maintain SBP 130-140mmHg -Norvasc and Cozaar -Hydralazine 10mg ivp rprn -Cardene gtt to be tapered off Pulm -no acute issues -Duoneb 3ml qid -Pulmicrot and Brovana GI -NPO except meds- pending swallow eval -Protonix 40mg ivp qd -GI on board Endo -no acute issues Nephro -no acute issues Heme/Onc -no acute issues ID -being tx for CAP with Rocephin GI ppx: Protonix 40mg ivp qd DVT ppx: SCDs Diet: NPO except meds- pending speech/swallow eval Dispo: patient to be transferred to remote TELE Discussed with Dr. Naila Avelar PGY2 <Bucky Yoo - Last Filed: 07/13/17 13:42> CCU Objective - Vital Signs / Intake & Output Vital Signs (Last 4 hours): Vital Signs BP 07/13/17 11:20 120/74 Intake and Output (Last 8hrs): Intake & Output 07/12/17 07/13/17 07/13/17 22:59 06:59 14:59 Intake Total 562.0 75 Output Total 1100 600 Balance -538.0 -525 Weight 140 lb Intake: IV 562.0 75 Left Forearm 364 75 Output: Urine 1100 600 Urine, Voided 1100 600 Other: # Voids Urine, Voided 5 - Medications Active Medications: Active Medications Generic Name Dose Route Start Last Admin Trade Name Freq PRN Reason Stop Dose Admin Albuterol/Ipratropium 3 ml 07/13/17 14:00 07/13/17 13:24 Duoneb 3 Mg/0.5 Mg (3 Ml) Ud IH Not Given TIDRESP RYLIE Amlodipine Besylate 10 mg 07/11/17 10:30 07/13/17 11:20 Norvasc PO 10 mg DAILY RYLIE Administration Arformoterol Tartrate 15 mcg 07/10/17 20:00 07/13/17 07:34 Brovana IH 15 mcg [id number] RYLIE Administration Budesonide 0.5 mg 07/10/17 09:00 07/13/17 07:35 Pulmicort Respules IH 0.5 mg BIDRESP RYLIE Administration Donepezil HCl 5 mg 07/10/17 22:00 07/12/17 22:43 Aricept PO 5 mg HS RYLIE Administration Hydralazine HCl 10 mg 07/13/17 07:24 Apresoline IVP Q6 PRN Systolic Blood Pressure Ceftriaxone Sodium 2 gm in 100 mls @ 100 mls/hr 07/10/17 10:00 07/13/17 11:27 Rocephin 2 Gm Ivpb IVPB 07/14/17 10:59 100 mls/hr DAILY RYLIE Administration Protocol Nicardipine HCl 20 mg in 200 mls @ 50 mls/hr 07/12/17 12:54 07/13/17 03:38 Cardene Iv Premix IV 2.5 mg/hr .Q4H PRN 25 mls/hr TITRATE PER MD ORDER Administration Protocol 5 MG/HR Losartan Potassium 100 mg 07/13/17 10:00 07/13/17 08:43 Cozaar PO 100 mg DAILY RYLIE Administration Pantoprazole Sodium 40 mg 07/10/17 10:00 07/13/17 11:27 Protonix Inj IVP 40 mg DAILY RYLIE Administration Pyridoxine HCl 50 mg 07/10/17 11:45 07/13/17 11:32 Vitamin B6 50 Mg Tab PO 50 mg DAILY RYLIE Administration - Patient Studies Lab Studies: Lab Studies 07/13/17 07/13/17 Range/Units 09:30 09:30 WBC 13.5 H D (4.5-11.0) 10^3/ul RBC 4.55 (3.5-6.1) 10^6/uL Hgb 13.3 L (14.0-18.0) g/dL Hct 38.8 L (42.0-52.0) % MCV 85.3 (80.0-105.0) fl MCH 29.2 (25.0-35.0) pg MCHC 34.3 (31.0-37.0) g/dl RDW 15.0 H (11.5-14.5) % Plt Count 267 (120.0-450.0) 10^3/uL MPV 9.8 (7.0-11.0) fl Gran % 82.7 H (50.0-68.0) % Lymph % (Auto) 9.0 L (22.0-35.0) % Traill % (Auto) 7.7 H (1.0-6.0) % Eos % (Auto) 0.5 L (1.5-5.0) % Baso % (Auto) 0.1 (0.0-3.0) % Gran # 11.16 H (1.4-6.5) Lymph # (Auto) 1.2 (1.2-3.4) Traill # (Auto) 1.0 H (0.1-0.6) Eos # (Auto) 0.1 (0.0-0.7) Baso # (Auto) 0.02 (0.0-2.0) K/mm3 Sodium 139 (132-148) mmol/L Potassium 3.7 (3.6-5.0) mmol/L Chloride 102 (98-107) mmol/L Carbon Dioxide 23 (21-33) mmol/L Anion Gap 17 (10-20) BUN 8 (7-21) mg/dL Creatinine 0.9 (0.8-1.5) mg/dl Est GFR ( Amer) > 60 Est GFR (Non-Af Amer) > 60 Random Glucose 110 (70-110) mg/dL Calcium 9.6 (8.4-10.5) mg/dL Total Bilirubin 1.5 H (0.2-1.3) mg/dL AST 31 (17-59) U/L ALT 40 (7-56) U/L Alkaline Phosphatase 81 (38-126) U/L Total Protein 6.6 (5.8-8.3) g/dL Albumin 3.7 (3.0-4.8) g/dL Globulin 2.9 gm/dL Albumin/Globulin Ratio 1.3 (1.1-1.8) Laboratory Results - last 24 hr 07/13/17 07/13/17 09:30 09:30 WBC 13.5 H D RBC 4.55 Hgb 13.3 L Hct 38.8 L MCV 85.3 MCH 29.2 MCHC 34.3 RDW 15.0 H Plt Count 267 MPV 9.8 Gran % 82.7 H Lymph % (Auto) 9.0 L Traill % (Auto) 7.7 H Eos % (Auto) 0.5 L Baso % (Auto) 0.1 Gran # 11.16 H Lymph # (Auto) 1.2 Traill # (Auto) 1.0 H Eos # (Auto) 0.1 Baso # (Auto) 0.02 Sodium 139 Potassium 3.7 Chloride 102 Carbon Dioxide 23 Anion Gap 17 BUN 8 Creatinine 0.9 Est GFR ( Amer) > 60 Est GFR (Non-Af Amer) > 60 Random Glucose 110 Calcium 9.6 Total Bilirubin 1.5 H AST 31 ALT 40 Alkaline Phosphatase 81 Total Protein 6.6 Albumin 3.7 Globulin 2.9 Albumin/Globulin Ratio 1.3 EKG/Cardiology Studies: Cardiology / EKG Studies 07/13/17 09:23 EKG [ELECTROCARDIOGRAM] Stat Comment: Reason For Exam: arrthymia Critical Care Progress Note - Nutrition Nutrition: Nutrition Category Date Time Status NPO Diet [DIET] Diets 07/13/17 Breakfast Ordered Attending/Attestation - Attestation I have personally seen and examined this patient.: Yes I have fully participated in the care of the patient.: Yes I have reviewed all pertinent clinical information: Yes Notes (Text): 07/13/17 13:32 87 yo male with small hemorrhagic infarct, admitted yesterday to ICU for BP control and frequent neuro exams. Now off of cardene drip, no progression of the bleed on CTH, will continue to maintain euvolemia, euglycemia, normothermia and 02sat>90 percent. avoid anti-coagulants, APAP for now. ccm time 40 min
[2017-07-13] MEDS: Arformoterol 15 mcg/2 ml Inh Sol IH SCH (07:34)
[2017-07-13] MEDS: Albuterol-Ipratrop 3 mg / 0.5 (3 ml) UD IH SCH ×3 (07:34→13:24)
[2017-07-13] MEDS: Budesonide 0.5 mg/2 ml Inhal Susp UD IH SCH (07:35)
--- NOTE | 2017-07-13 09:51 | CP.PCM.PN ---
<Kelly Wei - Last Filed: 07/13/17 11:58> Subjective - Date & Time of Evaluation Date of Evaluation: 07/13/17 Time of Evaluation: 09:51 - Subjective Subjective: Neurology PGY-[address] Jones Pt is able to recognize family member but does not know location or time. No PEREZ , CP, SOB. (+) L shoulder pain which is chronic. EKG showed sinus with FREQUENT PACs and PVCs SBP at 120s Objective - Vital Signs/Intake and Output Vital Signs (last 24 hours): Temp Pulse Resp BP Pulse Ox 98.7 F 89 36 H 152/78 H 95 07/12/17 12:00 07/13/17 04:00 07/13/17 01:00 07/13/17 01:00 07/13/17 02:00 Intake and Output: 07/13/17 07/13/17 06:59 18:59 Intake Total 161.1 Output Total 600 Balance -438.9 - Medications Medications: Current Medications Albuterol/Ipratropium (Duoneb 3 Mg/0.5 Mg (3 Ml) Ud) 3 ml IH QIDRESP [facility] Last Admin: 07/13/17 07:34 Dose: 3 ml Amlodipine Besylate (Norvasc) 10 mg PO DAILY [facility] Last Admin: 07/12/17 09:41 Dose: 10 mg Arformoterol Tartrate (Brovana) 15 mcg IH [id number] [facility] Last Admin: 07/13/17 07:34 Dose: 15 mcg Budesonide (Pulmicort Respules) 0.5 mg IH BIDRESP [facility] Last Admin: 07/13/17 07:35 Dose: 0.5 mg Donepezil HCl (Aricept) 5 mg PO HS [facility] Last Admin: 07/12/17 22:43 Dose: 5 mg Hydralazine HCl (Apresoline) 10 mg IVP Q6 PRN PRN Reason: Systolic Blood Pressure Ceftriaxone Sodium (Rocephin 2 Gm Ivpb) 2 gm in 100 mls @ 100 mls/hr IVPB DAILY [facility] PRN Reason: Protocol Stop: 07/14/17 10:59 Last Admin: 07/12/17 09:55 Dose: 100 mls/hr Nicardipine HCl (Cardene Iv Premix) 20 mg in 200 mls @ 50 mls/hr IV .Q4H PRN; Protocol; 5 MG/HR PRN Reason: TITRATE PER MD ORDER Last Admin: 07/13/17 03:38 Dose: 2.5 mg/hr, 25 mls/hr Losartan Potassium (Cozaar) 100 mg PO DAILY [facility] Last Admin: 07/13/17 08:43 Dose: 100 mg Pantoprazole Sodium (Protonix Inj) 40 mg IVP DAILY [facility] Last Admin: 07/12/17 09:44 Dose: 40 mg Pyridoxine HCl (Vitamin B6 50 Mg Tab) 50 mg PO DAILY [facility] Last Admin: 07/12/17 09:42 Dose: 50 mg - Labs Labs: 07/12/17 09:50 07/12/17 06:30 PT 11.9 SECONDS (9.4-12.5) 07/09/17 20:05 INR 1.04 (0.93-1.08) 07/09/17 20:05 APTT 33.2 Seconds (25.1-36.5) 07/09/17 20:05 - Constitutional Appears: No Acute Distress - Head Exam Head Exam: ATRAUMATIC, NORMAL INSPECTION, NORMOCEPHALIC - Eye Exam Eye Exam: EOMI, Normal appearance, PERRL. absent: Scleral icterus Pupil Exam: NORMAL ACCOMODATION - ENT Exam ENT Exam: Mucous Membranes Moist - Neck Exam Additional comments: supple - Respiratory Exam Respiratory Exam: Clear to Ausculation Bilateral, NORMAL BREATHING PATTERN - Cardiovascular Exam Cardiovascular Exam: REGULAR RHYTHM, +S1, +S2. absent: Murmur - Extremities Exam Extremities Exam: absent: Calf Tenderness, Pedal Edema - Neurological Exam Neurological Exam: Alert, Awake. absent: Normal Gait Additional comments: AAO to person, general location at hospital Speech: (+) slur with deepened R nasal-labile fold Motor: 4/5 upper extremiteis b/l. L shoulder ROM limited by pain. good hand review assistant Lower extremities 3/5 b/l Sensory: intact finger to finger coordination: resting and intentional tremor Babinski: (+) Assessment and Plan - Assessment and Plan (Free Text) Plan: Mr Eric Blancas, 87M, presents to the emergency department on Monday complaining of intractable vomiting x 2 days associated with epigastric discomfort. He has PMHx TIA on ASA, Dementia with behavioral/agitation on risperidal & aricept, CHF, COPD, osteoarthritis. He was diagnosed with community acquired pneumonia on rocephin IV. During the hospital stay, pt had a code stroke. Pt had a hemorrhagic stroke with facial drooping and slurr of speech. His BP was 190/86. He was transferred to ICU for cardene gtt and intensive neurol monitoring. On ICU monitor, it was noted that he has sinus arrthymia with frequent PVCs and PACs. Pt will be transferred to remote telemetry. Hemorrhagic Stroke likely secondary to hypertensive urgency causing L small basal ganglia 9x5mm acute hemorrhage Hx TIA Imaging -repeat head CT: no intracranial mass, hemorrhage or acute infarct. Numerous basal ganglia and thalamic lacunar infarcts and b/l old pontine lacunar infarcts. Extensive chronic white matter ischemic changes. -CT head: 9x5mm acute hemorrhage in the L basal ganglia; old lacunar infarctions in the R rivera radiata, R basal ganglia, R thalamus, L caudate head and L anterior basal ganglia; severe chronic microangiopathic changes and moderate age-related global parenchymal volume loss. - pending MRI Plan - No lipitor for 72 hrs - No ASA or antiplatelet for 3 weeks - No anticoagulation for 4 weeks - Hold Lovenox as DVT prophylaxs - Maintain SBP 130-140, DBP 70-80. Do not drop blood pressure more than 20mmHg at a time. - Maintain blood glucose 140-180 - PT/OT/ST ICA Carotid stenosis with Hx TIA in setting of recent hemorrhagic stroke - Carotid doppler u/s: b/l 60-79% proximal ICA stenoses; vertebral artery flow ATRETIC - Outpatient CEA? sinus arrthymia with frequent PVCs and PACs - Consider cardiology consult to r/o structural causes and perhaps beta lloyd? s/r/d/w Dr. Jones <Lizandro Jones - Last Filed: 07/13/17 12:11> Objective - Vital Signs/Intake and Output Vital Signs (last 24 hours): Temp Pulse Resp BP Pulse Ox 98.7 F 89 36 H 120/74 95 07/12/17 12:00 07/13/17 04:00 07/13/17 01:00 07/13/17 11:20 07/13/17 02:00 Intake and Output: 02/01/18 02/01/18 06:59 18:59 Intake Total 161.1 Output Total 600 Balance -438.9 - Medications Medications: Current Medications Albuterol/Ipratropium (Duoneb 3 Mg/0.5 Mg (3 Ml) Ud) 3 ml IH QIDRESP [facility] Last Admin: 07/13/17 07:34 Dose: 3 ml Amlodipine Besylate (Norvasc) 10 mg PO DAILY [facility] Last Admin: 07/13/17 11:20 Dose: 10 mg Arformoterol Tartrate (Brovana) 15 mcg IH [id number] [facility] Last Admin: 07/13/17 07:34 Dose: 15 mcg Budesonide (Pulmicort Respules) 0.5 mg IH BIDRESP [facility] Last Admin: 07/13/17 07:35 Dose: 0.5 mg Donepezil HCl (Aricept) 5 mg PO HS [facility] Last Admin: 07/12/17 22:43 Dose: 5 mg Hydralazine HCl (Apresoline) 10 mg IVP Q6 PRN PRN Reason: Systolic Blood Pressure Ceftriaxone Sodium (Rocephin 2 Gm Ivpb) 2 gm in 100 mls @ 100 mls/hr IVPB DAILY [facility] PRN Reason: Protocol Stop: 07/14/17 10:59 Last Admin: 07/13/17 11:27 Dose: 100 mls/hr Nicardipine HCl (Cardene Iv Premix) 20 mg in 200 mls @ 50 mls/hr IV .Q4H PRN; Protocol; 5 MG/HR PRN Reason: TITRATE PER MD ORDER Last Admin: 07/13/17 03:38 Dose: 2.5 mg/hr, 25 mls/hr Losartan Potassium (Cozaar) 100 mg PO DAILY [facility] Last Admin: 07/13/17 08:43 Dose: 100 mg Pantoprazole Sodium (Protonix Inj) 40 mg IVP DAILY [facility] Last Admin: 07/13/17 11:27 Dose: 40 mg Pyridoxine HCl (Vitamin B6 50 Mg Tab) 50 mg PO DAILY [facility] Last Admin: 07/13/17 11:32 Dose: 50 mg - Labs Labs: 07/13/17 09:30 07/13/17 09:30 PT 11.9 SECONDS (9.4-12.5) 07/09/17 20:05 INR 1.04 (0.93-1.08) 07/09/17 20:05 APTT 33.2 Seconds (25.1-36.5) 07/09/17 20:05 Attending/Attestation - Attestation I have personally seen and examined this patient.: Yes I have fully participated in the care of the patient.: Yes I have reviewed all pertinent clinical information, including history, physical exam and plan: Yes
--- NOTE | 2017-07-13 10:08 | CT ---
PROCEDURE: CT HEAD WITHOUT CONTRAST. HISTORY: ICH COMPARISON: None available. TECHNIQUE: Axial computed tomography images were obtained through the head/brain without intravenous contrast. Radiation dose: Total exam DLP = 700.61 mGy-cm. This CT exam was performed using one or more of the following dose reduction techniques: Automated exposure control, adjustment of the mA and/or kV according to patient size, and/or use of iterative reconstruction technique. FINDINGS: HEMORRHAGE: No intracranial hemorrhage. BRAIN: No mass effect or edema. Mild diffuse age-appropriate cerebral atrophy. Multiple old bilateral basal ganglia and thalamic lacunar infarcts. Old bilateral pontine lacune this. Moderate to severe periventricular white matter lucency with patchy and confluent deep and subcortical white matter lucency, consistent with microvascular ischemic change. No evidence of acute vascular territorial infarct. No interval change from prior examination. VENTRICLES: Unremarkable. No hydrocephalus. CALVARIUM: Unremarkable. PARANASAL SINUSES: Unremarkable as visualized. No significant inflammatory changes. MASTOID AIR CELLS: Unremarkable as visualized. No inflammatory changes. OTHER FINDINGS: None. IMPRESSION: No intracranial mass, hemorrhage or evidence of acute infarct. Numerous basal ganglia and thalamic lacunar infarcts and bilateral old pontine lacunar infarcts. Extensive chronic white matter ischemic change.
[2017-07-13 11:04] LABS: BASO # 0.02 K/mm3 (0.0-2.0); BASO % 0.1 % (0.0-3.0); EOS # 0.1 (0.0-0.7); EOS % 0.5 % (1.5-5.0); GRAN # 11.16 (1.4-6.5); GRAN % 82.7 % (50.0-68.0); HEMOGLOBIN 13.3 g/dL (14.0-18.0); LYMPH # 1.2 (1.2-3.4); MEAN CELL VOLUME 85.3 fl (80.0-105.0); MEAN CORPUSCULAR HEMOGLOBIN 29.2 pg (25.0-35.0); MEAN CORPUSCULAR HGB CONC 34.3 g/dl (31.0-37.0); MEAN PLATELET VOLUME 9.8 fl (7.0-11.0); MONO % 7.7 % (1.0-6.0); RBC 4.55 10^6/uL (3.5-6.1); WHITE BLOOD COUNT 13.5 10^3/ul (4.5-11.0)
[2017-07-13 11:22] LABS: ALB/GLOB RATIO 1.3 (1.1-1.8); ALBUMIN 3.7 g/dL (3.0-4.8); ALT/SGPT 40 U/L (7-56); AST/SGOT 31 U/L (17-59); BLOOD UREA NITROGEN 8 mg/dL (7-21); CALCIUM 9.6 mg/dL (8.4-10.5); GFR AFRICAN-AMERICAN > 60; GFR NON-AFRICAN AMERICAN > 60
[2017-07-13] MEDS: cefTRIAXone 2 GM IN NS 2 GM/100 ML BAG IVPB SCH (11:27)
--- NOTE | 2017-07-13 16:10 | CARD ---
APPROVED REPORT EKG Measurement Heart [id number] <Conclusion> Sinus rhythm with occasional premature ventricular complexes and premature atrial complexes Possible Left atrial enlargement Incomplete right bundle branch block Nonspecific ST abnormality Prolonged QT Abnormal ECG
--- NOTE | 2017-07-13 17:39 | CP.PCM.PN ---
<Sarah Andrade - Last Filed: 07/13/17 17:38> Subjective - Date & Time of Evaluation Date of Evaluation: 07/13/17 Time of Evaluation: 11:20 - Subjective Subjective: Seen and examined at the bedside earlier today, chart reviewed. Patient returned from CT scan of the head. Patient is aphasic but awake but seems a little bit lethargic this morning. Family at bedside. Patient is nothing by mouth pending swallowing evaluation. No reports of any overt GI bleeding, nausea, vomiting, or abdominal pain. Repeat head ct report no bleed or infarct. Objective - Vital Signs/Intake and Output Vital Signs (last 24 hours): Temp Pulse Resp BP Pulse Ox 98.7 F 89 36 H 120/74 95 07/12/17 12:00 07/13/17 04:00 07/13/17 01:00 07/13/17 11:20 07/13/17 02:00 Intake and Output: 07/13/17 07/13/17 06:59 18:59 Intake Total 161.1 Output Total 600 Balance -438.9 - Medications Medications: Current Medications Albuterol/Ipratropium (Duoneb 3 Mg/0.5 Mg (3 Ml) Ud) 3 ml IH TIDRESP [facility] Last Admin: 07/13/17 13:24 Dose: Not Given Amlodipine Besylate (Norvasc) 10 mg PO DAILY [facility] Last Admin: 07/13/17 11:20 Dose: 10 mg Arformoterol Tartrate (Brovana) 15 mcg IH [id number] [facility] Last Admin: 07/13/17 07:34 Dose: 15 mcg Budesonide (Pulmicort Respules) 0.5 mg IH BIDRESP [facility] Last Admin: 07/13/17 07:35 Dose: 0.5 mg Donepezil HCl (Aricept) 5 mg PO HS [facility] Last Admin: 07/12/17 22:43 Dose: 5 mg Hydralazine HCl (Apresoline) 10 mg IVP Q6 PRN PRN Reason: Systolic Blood Pressure Ceftriaxone Sodium (Rocephin 2 Gm Ivpb) 2 gm in 100 mls @ 100 mls/hr IVPB DAILY [facility] PRN Reason: Protocol Stop: 07/14/17 10:59 Last Admin: 07/13/17 11:27 Dose: 100 mls/hr Nicardipine HCl (Cardene Iv Premix) 20 mg in 200 mls @ 50 mls/hr IV .Q4H PRN; Protocol; 5 MG/HR PRN Reason: TITRATE PER MD ORDER Last Admin: 07/13/17 03:38 Dose: 2.5 mg/hr, 25 mls/hr Losartan Potassium (Cozaar) 100 mg PO DAILY [facility] Last Admin: 07/13/17 08:43 Dose: 100 mg Pantoprazole Sodium (Protonix Ec Tab) 40 mg PO ACB [facility] Pyridoxine HCl (Vitamin B6 50 Mg Tab) 50 mg PO DAILY [facility] Last Admin: 07/13/17 11:32 Dose: 50 mg - Labs Labs: 07/13/17 09:30 07/13/17 09:30 PT 11.9 SECONDS (9.4-12.5) 07/09/17 20:05 INR 1.04 (0.93-1.08) 07/09/17 20:05 APTT 33.2 Seconds (25.1-36.5) 07/09/17 20:05 - Constitutional Appears: No Acute Distress - Eye Exam Eye Exam: Normal appearance. absent: Scleral icterus - ENT Exam ENT Exam: Mucous Membranes Moist - Neck Exam Neck Exam: Normal Inspection - Respiratory Exam Respiratory Exam: NORMAL BREATHING PATTERN. absent: Respiratory Distress - Cardiovascular Exam Cardiovascular Exam: +S1, +S2 - GI/Abdominal Exam GI & Abdominal Exam: Soft, Normal Bowel Sounds. absent: Guarding, Tenderness, Rebound - Extremities Exam Extremities Exam: absent: Calf Tenderness - Neurological Exam Neurological Exam: Awake - Skin Skin Exam: Dry, Warm Assessment and Plan - Assessment and Plan (Free Text) Assessment: Assessment: New Onset 9x5mm Acute Hemorrahage Left Basil Ganglia Improving abdominal pain Differentials to consider is gastroenteritis, peptic ulcer disease erosive hepatitis History of dementia H/O TIA COPD HTN Lung Infiltrate Cholelithiasis on ct scan PLAN: NPO till have swallow eval Continue Protonix 40 daily Continue IV antibiotics pending MRI brain neuro following pt discuss w/ family at bedside and nursing staff. Seen and discussed with Dr. Valerio. <Seth Valerio V - Last Filed: 07/14/17 00:10> Objective - Vital Signs/Intake and Output Vital Signs (last 24 hours): Temp Pulse Resp BP Pulse Ox 98.4 F 63 18 140/59 L 93 L 07/13/17 23:59 07/13/17 22:00 07/13/17 17:00 07/13/17 18:54 07/13/17 17:00 - Medications Medications: Current Medications Albuterol/Ipratropium (Duoneb 3 Mg/0.5 Mg (3 Ml) Ud) 3 ml IH TIDRESP [facility] Last Admin: 07/13/17 13:24 Dose: Not Given Amlodipine Besylate (Norvasc) 10 mg PO DAILY [facility] Last Admin: 07/13/17 11:20 Dose: 10 mg Arformoterol Tartrate (Brovana) 15 mcg IH [id number] [facility] Last Admin: 07/13/17 07:34 Dose: 15 mcg Budesonide (Pulmicort Respules) 0.5 mg IH BIDRESP [facility] Last Admin: 07/13/17 07:35 Dose: 0.5 mg Donepezil HCl (Aricept) 5 mg PO HS [facility] Last Admin: 07/13/17 21:58 Dose: 5 mg Hydralazine HCl (Apresoline) 10 mg IVP Q6 PRN PRN Reason: Systolic Blood Pressure Ceftriaxone Sodium (Rocephin 2 Gm Ivpb) 2 gm in 100 mls @ 100 mls/hr IVPB DAILY [facility] PRN Reason: Protocol Stop: 07/14/17 10:59 Last Admin: 07/13/17 11:27 Dose: 100 mls/hr Nicardipine HCl (Cardene Iv Premix) 20 mg in 200 mls @ 50 mls/hr IV .Q4H PRN; Protocol; 5 MG/HR PRN Reason: TITRATE PER MD ORDER Last Admin: 07/13/17 03:38 Dose: 2.5 mg/hr, 25 mls/hr Losartan Potassium (Cozaar) 100 mg PO DAILY [facility] Last Admin: 07/13/17 08:43 Dose: 100 mg Metoprolol Tartrate (Lopressor) 25 mg PO BID [facility] Last Admin: 07/13/17 18:54 Dose: 25 mg Pantoprazole Sodium (Protonix Ec Tab) 40 mg PO ACB [facility] Pyridoxine HCl (Vitamin B6 50 Mg Tab) 50 mg PO DAILY [facility] Last Admin: 07/13/17 11:32 Dose: 50 mg - Labs Labs: 07/13/17 09:30 07/13/17 09:30 PT 11.9 SECONDS (9.4-12.5) 07/09/17 20:05 INR 1.04 (0.93-1.08) 07/09/17 20:05 APTT 33.2 Seconds (25.1-36.5) 07/09/17 20:05 Attending/Attestation - Attestation I have personally seen and examined this patient.: Yes I have fully participated in the care of the patient.: Yes I have reviewed all pertinent clinical information, including history, physical exam and plan: Yes Notes (Text): This is an addendum to GI progress report dictated by Sarah Andrade APN.The patient was seen and examined earlier. Medical records, lab studies, imagings were reviewed. Last 24 hours events reviewed. Agreed with the above treatment plan as outlined in Sarah Andrade APN's notes the with the addition of the following 07/14/17 00:10
[2017-07-14] MEDS: Arformoterol 15 mcg/2 ml Inh Sol IH SCH ×3 (00:13→20:25)
[2017-07-14] MEDS: Budesonide 0.5 mg/2 ml Inhal Susp UD IH SCH ×3 (00:14→20:25)
[2017-07-14] MEDS: Albuterol-Ipratrop 3 mg / 0.5 (3 ml) UD IH SCH ×4 (00:14→20:25)
[2017-07-14 06:43] LABS: BASO # 0.02 K/mm3 (0.0-2.0); BASO % 0.1 % (0.0-3.0); EOS % 0.2 % (1.5-5.0); GRAN # 10.81 (1.4-6.5); GRAN % 78.4 % (50.0-68.0); HEMOGLOBIN 13.1 g/dL (14.0-18.0); LYMPH # 1.9 (1.2-3.4); LYMPH % 13.8 % (22.0-35.0); MEAN CELL VOLUME 85.8 fl (80.0-105.0); MEAN CORPUSCULAR HEMOGLOBIN 28.7 pg (25.0-35.0); MEAN CORPUSCULAR HGB CONC 33.4 g/dl (31.0-37.0); MONO % 7.5 % (1.0-6.0); RBC 4.57 10^6/uL (3.5-6.1); RED CELL DISTRIBUTION WIDTH 15.5 % (11.5-14.5); WHITE BLOOD COUNT 13.8 10^3/ul (4.5-11.0)
[2017-07-14 07:02] LABS: ALB/GLOB RATIO 1.2 (1.1-1.8); ALBUMIN 3.5 g/dL (3.0-4.8); CALCIUM 9.3 mg/dL (8.4-10.5); MAGNESIUM 2.1 mg/dL (1.7-2.2)
--- NOTE | 2017-07-14 08:36 | CON ---
DATE: 07/13/2017 CONSULTING SERVICE: Cardiology. REASON FOR CONSULTATION: PVCs, cardiac evaluation, arrhythmia, CVA, possible intracerebral bleed. BRIEF CLINICAL HISTORY: This is an 87-year-old male with past medical history of congestive heart failure, hypertension, hyperlipidemia, who was recently discharged and came in, admitted because of cough, shortness of breath, altered mental status, found to be in intracerebral bleeding. Patient is currently in ICU. Daughter is at the bedside. Information obtained from the daughter. PAST MEDICAL HISTORY: Significant for hypertension, walks with a walker, questionable history of CHF, significant for COPD, dementia, and BPH. SOCIAL HISTORY: Denies any history of alcohol abuse. He used to smoke, but quit many years ago. PAST SURGICAL HISTORY: Nothing significant. CURRENT MEDICATIONS AT HOME: Before he came in, he used to take aspirin 81 mg daily, Avodart 0.5 mg daily, Aricept 5 mg daily, hydralazine 10 mg, and losartan 50 mg daily. REVIEW OF SYSTEMS: As per HPI. PREVIOUS CARDIAC WORKUP: As follows: Patient had an echocardiography on 12/08/2016 that showed normal with an ejection fraction of 65%, mild aortic regurgitation, [id number] mitral regurgitation, mych-lr-dorsweuf tricuspid regurgitation, RV systolic pressure of 45. PHYSICAL EXAMINATION: As follows: VITAL SIGNS: Temperature afebrile, heart rate 94, blood pressure 144/72. HEENT: PERRLA intact. NECK: Supple. No carotid bruits or thyromegaly. CHEST: Clear to auscultation. HEART: S1 and S2, regular. ABDOMEN: Soft. EXTREMITIES: Clubbing and cyanosis, negative. LABORATORY DATA: WBC 13.5, hemoglobin 13.3, hematocrit 38.8, platelet count 267. Chemistry shows sodium 139, potassium 3.7, chloride , total bilirubin 0.5, total protein 6.6, albumin , albumin-globulin ratio 1.3. EKG showed normal sinus, incomplete right bundle-branch block, PVCs, left anterior hemiblock. CAT scan of the head, repeat, shows no intracranial hemorrhage basal ganglia and thalamic lacunar infarct and bilateral pontine lacunar infarct noted. IMPRESSION: Cerebrovascular accident, dementia, benign prostate hypertrophy, chronic obstructive pulmonary disease, premature ventricular contractures, arrhythmia, hypertension. Last echo in November showed preserved left ventricular function with ejection fraction of 65%, pjfa-[id number]-ruxkhose mitral regurgitation, and some aortic regurgitation. RECOMMENDATION: We will manage aggressively. We will start low-dose beta-lloyd to control the heart rate and arrhythmia. We will follow with you. Lipid profile, TSH, hemoglobin A1c, we will follow. Thank you Dr. Aguilar for providing us the opportunity in taking care of the patient, Eric Blancas. Dl Vázquez MD
[2017-07-14] MEDS ORDERED: Sodium Chloride 0.45% 1,000 ML IV SCH (09:30)
[2017-07-14] MEDS: cefTRIAXone 2 GM IN NS 2 GM/100 ML BAG IVPB SCH (10:30)
[2017-07-14] MEDS: Pantoprazole 40 mg EC Tab PO SCH (10:34)
--- NOTE | 2017-07-14 11:34 | CP.PCM.PN ---
<Kelly Wei - Last Filed: 07/14/17 11:35> Subjective - Date & Time of Evaluation Date of Evaluation: 07/14/17 Time of Evaluation: 09:00 - Subjective Subjective: Neurology PGY-[address] Jones Pt is napping, easily awaken. (+) pain on shoulders, chronic Objective - Vital Signs/Intake and Output Vital Signs (last 24 hours): Temp Pulse Resp BP Pulse Ox 98.9 F 59 L 18 106/36 L 96 07/14/17 05:52 07/14/17 10:39 07/14/17 06:00 07/14/17 10:39 07/14/17 06:00 - Medications Medications: Current Medications Albuterol/Ipratropium (Duoneb 3 Mg/0.5 Mg (3 Ml) Ud) 3 ml IH TIDRESP [facility] Last Admin: 07/14/17 08:08 Dose: 3 ml Amlodipine Besylate (Norvasc) 10 mg PO DAILY [facility] Last Admin: 07/14/17 10:32 Dose: 10 mg Arformoterol Tartrate (Brovana) 15 mcg IH [id number] [facility] Last Admin: 07/14/17 08:08 Dose: 15 mcg Atorvastatin Calcium (Lipitor) 40 mg PO DIN [facility] Budesonide (Pulmicort Respules) 0.5 mg IH BIDRESP [facility] Last Admin: 07/14/17 08:08 Dose: 0.5 mg Donepezil HCl (Aricept) 5 mg PO HS [facility] Last Admin: 07/13/17 21:58 Dose: 5 mg Hydralazine HCl (Apresoline) 10 mg IVP Q6 PRN PRN Reason: Systolic Blood Pressure Hydralazine HCl (Apresoline) 10 mg PO TID [facility] Last Admin: 07/14/17 10:33 Dose: 10 mg Nicardipine HCl (Cardene Iv Premix) 20 mg in 200 mls @ 50 mls/hr IV .Q4H PRN; Protocol; 5 MG/HR PRN Reason: TITRATE PER MD ORDER Last Admin: 07/13/17 03:38 Dose: 2.5 mg/hr, 25 mls/hr Sodium Chloride (Sodium Chloride 0.45%) 1,000 mls @ 60 mls/hr IV .[id number] [facility] Last Admin: 07/14/17 10:39 Dose: 60 mls/hr Metoprolol Tartrate (Lopressor) 25 mg PO BID [facility] Last Admin: 07/14/17 10:39 Dose: 25 mg Pantoprazole Sodium (Protonix Ec Tab) 40 mg PO ACB [facility] Last Admin: 07/14/17 10:34 Dose: 40 mg Pyridoxine HCl (Vitamin B6 50 Mg Tab) 50 mg PO DAILY [facility] Last Admin: 07/13/17 11:32 Dose: 50 mg - Labs Labs: 07/14/17 06:25 07/14/17 06:25 PT 11.9 SECONDS (9.4-12.5) 07/09/17 20:05 INR 1.04 (0.93-1.08) 07/09/17 20:05 APTT 33.2 Seconds (25.1-36.5) 07/09/17 20:05 - Constitutional Appears: No Acute Distress - Head Exam Head Exam: ATRAUMATIC, NORMAL INSPECTION, NORMOCEPHALIC - Eye Exam Eye Exam: EOMI, Normal appearance, PERRL. absent: Scleral icterus Pupil Exam: NORMAL ACCOMODATION - ENT Exam ENT Exam: Mucous Membranes Moist - Neck Exam Additional comments: supple - Respiratory Exam Respiratory Exam: Clear to Ausculation Bilateral, NORMAL BREATHING PATTERN - Cardiovascular Exam Cardiovascular Exam: REGULAR RHYTHM, +S1, +S2. absent: Murmur - Extremities Exam Extremities Exam: absent: Calf Tenderness - Neurological Exam Neurological Exam: Awake Additional comments: AAO to person, general location at hospital Speech: (+) slur with deepened R nasal-labile fold Motor: 4/5 upper extremiteis b/l. L shoulder ROM limited by pain. 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 He has PMHx TIA on ASA, Dementia with behavioral/agitation on risperidal & aricept, CHF, COPD, osteoarthritis. He was diagnosed with community acquired pneumonia on rocephin IV. During the hospital stay, pt had a code stroke. Pt had a hemorrhagic stroke with facial drooping and slurr of speech. His BP was 190/86. He was transferred to ICU for cardene gtt and intensive neurol monitoring. On ICU monitor, it was noted that he has sinus arrthymia with frequent PVCs and PACs. Pt will be transferred to remote telemetry. Hemorrhagic Stroke likely secondary to hypertensive urgency causing L small basal ganglia 9x5mm acute hemorrhage Hx TIA Imaging -repeat head CT: no intracranial mass, hemorrhage or acute infarct. Numerous basal ganglia and thalamic lacunar infarcts and b/l old pontine lacunar infarcts. Extensive chronic white matter ischemic changes. -CT head: 9x5mm acute hemorrhage in the L basal ganglia; old lacunar infarctions in the R rivera radiata, R basal ganglia, R thalamus, L caudate head and L anterior basal ganglia; severe chronic microangiopathic changes and moderate age-related global parenchymal volume loss. Plan - Start lipitor tonight, s/p 72 hrs since onset of brain bleed - No ASA or antiplatelet for 3 weeks - No anticoagulation for 3 weeks - Hold Lovenox as DVT prophylaxs - Maintain SBP 130-140, DBP 70-80. Do not drop blood pressure more than 20mmHg at a time. - Maintain blood glucose 140-180 - PT/OT/ST ICA Carotid stenosis with Hx TIA in setting of recent hemorrhagic stroke - Carotid doppler u/s: b/l 60-79% proximal ICA stenoses; vertebral artery flow ATRETIC - Medical management sinus arrthymia with frequent PVCs and PACs - Cardiology consult s/r/d/w Dr. Jones <Lizandro Jones - Last Filed: 07/14/17 12:10> Objective - Vital Signs/Intake and Output Vital Signs (last 24 hours): Temp Pulse Resp BP Pulse Ox 98.9 F 57 L 18 106/36 L 96 07/14/17 05:52 07/14/17 11:59 07/14/17 06:00 07/14/17 11:59 07/14/17 06:00 - Medications Medications: Current Medications Albuterol/Ipratropium (Duoneb 3 Mg/0.5 Mg (3 Ml) Ud) 3 ml IH TIDRESP [facility] Last Admin: 07/14/17 08:08 Dose: 3 ml Amlodipine Besylate (Norvasc) 10 mg PO DAILY [facility] Last Admin: 07/14/17 10:32 Dose: 10 mg Arformoterol Tartrate (Brovana) 15 mcg IH [id number] [facility] Last Admin: 07/14/17 08:08 Dose: 15 mcg Atorvastatin Calcium (Lipitor) 40 mg PO DIN [facility] Budesonide (Pulmicort Respules) 0.5 mg IH BIDRESP [facility] Last Admin: 07/14/17 08:08 Dose: 0.5 mg Donepezil HCl (Aricept) 5 mg PO HS [facility] Last Admin: 07/13/17 21:58 Dose: 5 mg Hydralazine HCl (Apresoline) 10 mg IVP Q6 PRN PRN Reason: Systolic Blood Pressure Hydralazine HCl (Apresoline) 10 mg PO TID [facility] Last Admin: 07/14/17 10:33 Dose: 10 mg Nicardipine HCl (Cardene Iv Premix) 20 mg in 200 mls @ 50 mls/hr IV .Q4H PRN; Protocol; 5 MG/HR PRN Reason: TITRATE PER MD ORDER Last Admin: 07/13/17 03:38 Dose: 2.5 mg/hr, 25 mls/hr Sodium Chloride (Sodium Chloride 0.45%) 1,000 mls @ 60 mls/hr IV .[id number] [facility] Last Admin: 07/14/17 10:39 Dose: 60 mls/hr Metoprolol Tartrate (Lopressor) 25 mg PO BID [facility] Last Admin: 07/14/17 11:59 Dose: Not Given Pantoprazole Sodium (Protonix Ec Tab) 40 mg PO ACB [facility] Last Admin: 07/14/17 10:34 Dose: 40 mg Pyridoxine HCl (Vitamin B6 50 Mg Tab) 50 mg PO DAILY [facility] Last Admin: 07/14/17 11:35 Dose: 50 mg - Labs Labs: 07/14/17 06:25 07/14/17 06:25 PT 11.9 SECONDS (9.4-12.5) 07/09/17 20:05 INR 1.04 (0.93-1.08) 07/09/17 20:05 APTT 33.2 Seconds (25.1-36.5) 07/09/17 20:05 Attending/Attestation - Attestation I have personally seen and examined this patient.: Yes I have fully participated in the care of the patient.: Yes I have reviewed all pertinent clinical information, including history, physical exam and plan: Yes
--- NOTE | 2017-07-14 11:54 | CP.PCM.PN ---
<Sarah Andrade - Last Filed: 07/14/17 11:54> Subjective - Date & Time of Evaluation Date of Evaluation: 07/14/17 Time of Evaluation: 09:50 - Subjective Subjective: Seen and examined at the bedside earlier today, chart reviewed. Patient appeared lethargic but arousable. No reports of nausea, vomiting, or abdominal pain. The patient had swallowing evaluations and recommendations noted. No acute overnight events reported as per nursing. Objective - Vital Signs/Intake and Output Vital Signs (last 24 hours): Temp Pulse Resp BP Pulse Ox 98.9 F 59 L 18 106/36 L 96 07/14/17 05:52 07/14/17 10:39 07/14/17 06:00 07/14/17 10:39 07/14/17 06:00 - Medications Medications: Current Medications Albuterol/Ipratropium (Duoneb 3 Mg/0.5 Mg (3 Ml) Ud) 3 ml IH TIDRESP [facility] Last Admin: 07/14/17 08:08 Dose: 3 ml Amlodipine Besylate (Norvasc) 10 mg PO DAILY [facility] Last Admin: 07/14/17 10:32 Dose: 10 mg Arformoterol Tartrate (Brovana) 15 mcg IH [id number] [facility] Last Admin: 07/14/17 08:08 Dose: 15 mcg Atorvastatin Calcium (Lipitor) 40 mg PO DIN [facility] Budesonide (Pulmicort Respules) 0.5 mg IH BIDRESP [facility] Last Admin: 07/14/17 08:08 Dose: 0.5 mg Donepezil HCl (Aricept) 5 mg PO HS [facility] Last Admin: 07/13/17 21:58 Dose: 5 mg Hydralazine HCl (Apresoline) 10 mg IVP Q6 PRN PRN Reason: Systolic Blood Pressure Hydralazine HCl (Apresoline) 10 mg PO TID [facility] Last Admin: 07/14/17 10:33 Dose: 10 mg Nicardipine HCl (Cardene Iv Premix) 20 mg in 200 mls @ 50 mls/hr IV .Q4H PRN; Protocol; 5 MG/HR PRN Reason: TITRATE PER MD ORDER Last Admin: 07/13/17 03:38 Dose: 2.5 mg/hr, 25 mls/hr Sodium Chloride (Sodium Chloride 0.45%) 1,000 mls @ 60 mls/hr IV .[id number] [facility] Last Admin: 07/14/17 10:39 Dose: 60 mls/hr Metoprolol Tartrate (Lopressor) 25 mg PO BID [facility] Last Admin: 07/14/17 10:39 Dose: 25 mg Pantoprazole Sodium (Protonix Ec Tab) 40 mg PO ACB [facility] Last Admin: 07/14/17 10:34 Dose: 40 mg Pyridoxine HCl (Vitamin B6 50 Mg Tab) 50 mg PO DAILY [facility] Last Admin: 07/13/17 11:32 Dose: 50 mg - Labs Labs: 07/14/17 06:25 07/14/17 06:25 PT 11.9 SECONDS (9.4-12.5) 07/09/17 20:05 INR 1.04 (0.93-1.08) 07/09/17 20:05 APTT 33.2 Seconds (25.1-36.5) 07/09/17 20:05 - Constitutional Appears: No Acute Distress - Eye Exam Eye Exam: Normal appearance. absent: Scleral icterus - Neck Exam Neck Exam: Normal Inspection - Respiratory Exam Respiratory Exam: Decreased Breath Sounds, NORMAL BREATHING PATTERN. absent: Respiratory Distress - Cardiovascular Exam Cardiovascular Exam: +S1, +S2 - GI/Abdominal Exam GI & Abdominal Exam: Soft, Normal Bowel Sounds. absent: Guarding, Tenderness, Rebound - Extremities Exam Extremities Exam: absent: Calf Tenderness, Pedal Edema - Neurological Exam Neurological Exam: Awake - Skin Skin Exam: Dry, Warm Assessment and Plan - Assessment and Plan (Free Text) Assessment: Assessment: New Onset 9x5mm Acute Hemorrahage Left Basil Ganglia Improving abdominal pain Differentials to consider is gastroenteritis, peptic ulcer disease erosive hepatitis History of dementia H/O TIA COPD HTN Lung Infiltrate Cholelithiasis on ct scan PLAN: NPO , patient still lethargic appearing but arousable, will recommend to start NG tube feedings, see orders Aspiration precautions Continue Protonix 40 daily off antibiotics pending MRI brain neuro FU discuss w/ nursing at bedside Seen and discussed with Dr. Valerio. <Seth Valerio V - Last Filed: 07/14/17 22:51> Objective - Vital Signs/Intake and Output Vital Signs (last 24 hours): Temp Pulse Resp BP Pulse Ox 98 F 52 L 18 106/53 L 96 07/14/17 19:24 07/14/17 19:24 07/14/17 19:24 07/14/17 19:24 07/14/17 19:24 Intake and Output: 07/14/17 07/15/17 18:59 06:59 Intake Total 40 Output Total 0 Balance 40 - Medications Medications: Current Medications Albuterol/Ipratropium (Duoneb 3 Mg/0.5 Mg (3 Ml) Ud) 3 ml IH TIDRESP [facility] Last Admin: 07/14/17 20:25 Dose: 3 ml Amlodipine Besylate (Norvasc) 10 mg PO DAILY [facility] Last Admin: 07/14/17 10:32 Dose: 10 mg Arformoterol Tartrate (Brovana) 15 mcg IH [id number] [facility] Last Admin: 07/14/17 20:25 Dose: 15 mcg Aspirin (Ecotrin) 81 mg PO DAILY [facility] Atorvastatin Calcium (Lipitor) 40 mg PO DIN [facility] Last Admin: 07/14/17 17:48 Dose: 40 mg Budesonide (Pulmicort Respules) 0.5 mg IH BIDRESP [facility] Last Admin: 07/14/17 20:25 Dose: 0.5 mg Donepezil HCl (Aricept) 5 mg PO HS [facility] Last Admin: 07/14/17 22:00 Dose: 5 mg Hydralazine HCl (Apresoline) 10 mg IVP Q6 PRN PRN Reason: Systolic Blood Pressure Hydralazine HCl (Apresoline) 10 mg PO TID [facility] Last Admin: 07/14/17 17:49 Dose: Not Given Nicardipine HCl (Cardene Iv Premix) 20 mg in 200 mls @ 50 mls/hr IV .Q4H PRN; Protocol; 5 MG/HR PRN Reason: TITRATE PER MD ORDER Last Admin: 07/13/17 03:38 Dose: 2.5 mg/hr, 25 mls/hr Sodium Chloride (Sodium Chloride 0.45%) 1,000 mls @ 60 mls/hr IV .[id number] [facility] Last Admin: 07/14/17 10:39 Dose: 60 mls/hr Meropenem/Sodium Chloride (Meropenem 1g/Ns 100ml Ivpb) 1 gm in 100 mls @ 100 mls/hr IVPB Q12 [facility] Last Admin: 07/14/17 22:00 Dose: 100 mls/hr Doxycycline Hyclate 100 mg/ (Sodium Chloride) 100 mls @ 100 mls/hr IVPB Q12 [facility] PRN Reason: Protocol Last Admin: 07/14/17 21:58 Dose: 100 mls/hr Vancomycin HCl (Vancomycin 1gm) 1 gm in 250 mls @ 167 mls/hr IVPB STAT STA PRN Reason: Protocol Stop: 07/14/17 23:15 Last Admin: 07/14/17 21:58 Dose: 167 mls/hr Metoprolol Tartrate (Lopressor) 25 mg PO BID [facility] Last Admin: 07/14/17 18:04 Dose: Not Given Pantoprazole Sodium (Protonix Ec Tab) 40 mg PO ACB [facility] Last Admin: 07/14/17 10:34 Dose: 40 mg Pyridoxine HCl (Vitamin B6 50 Mg Tab) 50 mg PO DAILY [facility] Last Admin: 07/14/17 11:35 Dose: 50 mg - Labs Labs: 07/14/17 06:25 07/14/17 06:25 PT 11.9 SECONDS (9.4-12.5) 07/09/17 20:05 INR 1.04 (0.93-1.08) 07/09/17 20:05 APTT 33.2 Seconds (25.1-36.5) 07/09/17 20:05 Attending/Attestation - Attestation I have personally seen and examined this patient.: Yes I have fully participated in the care of the patient.: Yes I have reviewed all pertinent clinical information, including history, physical exam and plan: Yes Notes (Text): This is an addendum to GI progress report dictated by Sarah Andrade APN.The patient was seen and examined earlier. Medical records, lab studies, imagings were reviewed. Last 24 hours events reviewed. Agreed with the above treatment plan as outlined in Sarah Andrade APN's notes the with the addition of the following 07/14/17 22:51
--- NOTE | 2017-07-14 14:23 | RAD ---
HISTORY: R/O ASPIRATION COMPARISON: Chest x-ray performed 07/09/17 TECHNIQUE: Chest, one view. FINDINGS: Examination limited by habitus. LUNGS: Interstitial prominence may reflect infection or edema. Patchy left lower lobe atelectasis or infiltrate. Biapical pleural thickening. No significant pleural effusion or definite pneumothorax. CARDIOVASCULAR: Cardiomegaly. Ectatic aorta. Atherosclerotic calcifications. OSSEOUS STRUCTURES: Degenerative changes. Osseous demineralization. VISUALIZED UPPER ABDOMEN: Unremarkable. OTHER FINDINGS: None. IMPRESSION: Interstitial prominence may reflect infection or edema. Patchy left lower lobe atelectasis or infiltrate. Biapical pleural thickening. Cardiomegaly. Ectatic aorta.
--- NOTE | 2017-07-14 14:47 | PN ---
DATE: 07/13/2017 SUBJECTIVE: The patient in the ICU, patient is comfortable, in no distress. He is responding properly. He has no new complaints, no headache, no chest pain, not short of breath and he is stable. PHYSICAL EXAMINATION: VITAL SIGNS: As follows: Temperature is 98.4, heart rate 55, blood pressure is 149/67, respirations 20, saturation 96% on room air. HEAD AND NECK: Normal. No JVD, no thyromegaly. CHEST: Clear, good air entry. CARDIAC: First and second sounds normal. ABDOMEN: Soft, nontender. EXTREMITIES: No edema. NEUROLOGIC: Patient really has no focal deficits. He is alert, awake and respond properly to questions in Nepalese. LABORATORY DATA: On the 07/13/2017: His sodium is 139, potassium 3.7, chloride 102, bicarb 26, BUN is 8, creatinine 0.9. Liver enzymes is normal. Bilirubin a little bit high, 1.5, has no clinical significance. White count is 13.5, hemoglobin 13.3, hematocrit 38.8, platelets 267. RADIOLOGY DATA: A CT of the head was repeated, read by Dr. Mccabe and CT was negative for intracranial bleed. IMPRESSION AND PLAN: 1. Facial droop, etiology may be old. No acute intracranial bleed at this time. 2. Hypertension, continue current medications, follow up the patient clinically and we will adjust his medication of the blood pressure. 3. We will resume his aspirin also. 4. Leukocytosis, etiology unclear. We will repeat his labs and may consider ID consult for that. We will consider repeating urinalysis in the a.m. and chest x-ray. 5. Dementia, stable, patient has no behavioral problems while he is in the hospital. We will continue current therapy. 6. Hypercholesterolemia. Continue current medications, which include Brovana, DuoNeb, Lopressor has been added 25 b.i.d., we will monitor heart rate, Norvasc 10 mg p.o. daily, Cozaar 100 mg p.o. daily, Pulmicort, Rocephin was added 2 g daily, vitamin D 650 mg p.o. daily, Aricept 5 mg p.o. at bedtime, hydralazine was given as p.r.n. for systolic higher than 170. We will continue current therapy. Patient may need physical therapy, maybe need rehabilitation, subacute. We will see how the patient does. Cody Aguilar MD
[2017-07-14 19:25] LABS: URINE BILIRUBIN NEGATIVE (NEGATIVE); URINE BLOOD NEGATIVE (NEGATIVE); URINE GLUCOSE (UA) NEGATIVE (NEGATIVE); URINE LEUKOCYTE ESTERASE TRACE Leu/uL (NEGATIVE); URINE NITRATE NEGATIVE (NEGATIVE); URINE PROTEIN 30 mg/dL (<30 mg/dL); URINE UROBILINOGEN 0.2 E.U./dL (<1 E.U./dL)
[2017-07-14 19:26] LABS: URINE APPEARANCE SL CLOUDY (CLEAR); URINE COLOR YELLOW (YELLOW)
[2017-07-14 19:37] LABS: URINE AMORPHOUS SEDIMENT MODERATE; URINE BACTERIA MANY (NEG); URINE RBC 0 - 2 /hpf (0-2)
[2017-07-14 19:41] LABS: CREATININE,RANDOM URINE 267 mg/dL
--- NOTE | 2017-07-14 21:14 | PN ---
DATE: REASON FOR CONSULTATION: AND FOLLOWUP: PVCs, cardiac evaluation, arrhythmia, CVA, possible intracranial bleed. SUBJECTIVE: The patient is lying flat in ICU 120, bed 9, and not in apparent distress. PHYSICAL EXAMINATION: VITAL SIGNS: Temperature afebrile, heart rate 50, blood pressure 102/ . HEENT: PERRLA. Extraocular muscles intact. NECK: Supple. No carotid bruit or thyromegaly. CHEST: Clear to auscultation. HEART: S1 and S2, regular. ABDOMEN: Soft. EXTREMITIES: Clubbing and cyanosis negative. LABORATORY DATA: Blood workup as follows: WBC 13.8, hemoglobin 13.9, hematocrit 39.2, platelet count 274. Chemistry shows sodium 140, potassium 4.5, chloride 103, carbon dioxide 23, anion gap of 15, BUN 21, creatinine 2.6. The patient has acute kidney injury, sinus tachycardia, intracerebral bleed. The patient had last echocardiography on 12/08/2016, ejection fraction 65%, mild aortic regurgitation, yyql-by-jqyxpoja mitral regurgitation, qhpt-ix-[id number] tricuspid regurgitation, RV systolic pressure 45. Cerebrovascular accident, dementia, benign prostate hypertrophy, chronic obstructive pulmonary disease. RECOMMENDATION: Continue aggressive medical treatment. Acute kidney injury, we will start gentle hydration. Continue p.r.n. hydralazine. Continue aspirin, continue atorvastatin, continue metoprolol. Follow up the lab in the morning. Thank you Dr. Aguilar for providing us the opportunity in taking care of the patient, Christy Blancas. Dl Vázquez MD
[2017-07-14] MEDS ORDERED: Vancomycin 1gm in NS 250ml 1 GM/250 ML BAG IVPB STA (21:46)
[2017-07-14] MEDS: Meropenem 1g/NS 100mL IVPB 1 GM/100 ML PIGGYBACK IVPB SCH (22:00)
--- NOTE | 2017-07-14 23:12 | CON ---
DATE: 07/14/2017 REASON FOR CONSULTATION: Acute kidney injury. HISTORY OF PRESENTING ILLNESS: Patient was initially admitted on 07/11/2017. Patient was brought to the emergency room because of complaints of generalized weakness, poor p.o. intake, altered mental status. Two episodes of vomiting prior to presentation. Also complaining of some upper abdominal pain. Patient was admitted for observation, IV fluids, GI evaluation. He was also thought to have community-acquired pneumonia. Patient was being treated with IV antibiotics. Subsequently on 07/12, he became unresponsive. He was noted to have facial droop. Patient was brought to the emergency room for code stroke. CT of the head showed no intracranial mass or hemorrhage, no evidence of acute infarct. Repeat CAT scan showed lacunar infarct in the left basal ganglion. Patient is being monitored in the ICU. Currently, he is awake, he is alert, but he is aphasic. He is unable to express his thoughts. Patient has been hemodynamically stable, but he did have drop in his blood pressure. At one point, his pressure dropped to as low as 57 systolic. His creatinine was 0.9 yesterday. Today, his creatinine is 2.6. Hence consultation is requested. PAST MEDICAL AND SURGICAL HISTORY: Advanced age, dementia, hypertension, CVA, COPD, osteoarthritis, community-acquired pneumonia. FAMILY HISTORY: Noncontributory. SOCIAL HISTORY: Ex-smoker, no alcohol use, no IV drug abuse. ALLERGIES: NO KNOWN DRUG ALLERGIES. MEDICATIONS: Medications at present include hydralazine 10 mg t.i.d.; Aricept 5; Brovana; nicardipine drip was discontinued; DuoNeb; Lipitor 40 mg; Lopressor 25 b.i.d.; amlodipine 10 mg; Protonix; Pulmicort; half-normal saline at 60, was started this morning; Cozaar 100 mg, last dose given yesterday; DuoNeb; Protonix; Rocephin 2 g, last dose given this morning. REVIEW OF SYSTEMS: Patient indicates he is having pain in his left shoulder. He is unable to verbalize. He denies any chest tightness. He complains of abdominal pain. He denies any nausea, vomiting. He reports that he is hungry. All other systems are reviewed, but unremarkable. PHYSICAL EXAMINATION: GENERAL: Elderly male, sitting in bed in the ICU. VITAL SIGNS: Blood pressure 102/39, heart rate 52, respiratory rate 28, temperature 98.1. HEENT: Normocephalic, atraumatic, positive pallor. NECK: Supple, no JVD. LUNGS: Bilateral equal entry, bilateral rhonchi, equal expansion. CARDIAC: S1, S2. Regular rate and rhythm. No murmur, no rub. ABDOMEN: Distended, soft, positive tenderness, bowel sounds present. EXTREMITIES: No lower extremity edema. INTAKE AND OUTPUT: 639/1700. LABORATORY DATA: WBC 13.8, hemoglobin 13, hematocrit 39, platelets 274. Sodium 140, potassium 4.5, chloride 103, CO2 23, BUN 21, creatinine 2.6, glucose 83, A1c 6.0, calcium 9.3, phosphorus 5.0, magnesium 2.0, albumin 3.5. Urinalysis: Yellow, clear, pH 6.5, specific gravity 1.025, protein 30, ketones negative, glucose negative, leukocyte esterase negative. CT of the abdomen and pelvis done on 07/09, right lower lobe opacity, cholelithiasis. ASSESSMENT: 1. Acute kidney injury in the setting of code stroke, hemorrhagic infarct, aphasia, hypotension. 2. Acute cerebrovascular accident. 3. Dementia. 4. Possible right lower lobe pneumonia. 5. Leukocytosis. 6. Prerenal azotemia. PLAN: 1. Acute kidney injury is multifactorial. Suspect this could be prerenal azotemia in the setting of no p.o. intake, dehydration, hypotension, potentially nephrotoxic agents. 2. Patient was on ARB, which was given yesterday. 3. Was on potentially nephrotoxic antibiotics. 4. Hold Cozaar. 5. IV fluid resuscitation. 6. Avoid nephrotoxins. 7. Monitor urine output. 8. Monitor daily electrolytes. Case is discussed with ICU nurse at length at bedside. Case is discussed with family members at bedside. More than 35 minutes was spent in the care of this critically ill patient. Jen Merritt MD
[2017-07-15 07:21] LABS: BASO # 0.04 K/mm3 (0.0-2.0); BASO % 0.3 % (0.0-3.0); EOS # 0.1 (0.0-0.7); GRAN # 10.26 (1.4-6.5); GRAN % 77.1 % (50.0-68.0); HEMOGLOBIN 11.7 g/dL (14.0-18.0); LYMPH # 1.5 (1.2-3.4); LYMPH % 11.2 % (22.0-35.0); MEAN CELL VOLUME 86.5 fl (80.0-105.0); MEAN CORPUSCULAR HEMOGLOBIN 28.2 pg (25.0-35.0); MEAN CORPUSCULAR HGB CONC 32.6 g/dl (31.0-37.0); MEAN PLATELET VOLUME 10.2 fl (7.0-11.0); MONO # 1.4 (0.1-0.6); MONO % 10.4 % (1.0-6.0); RBC 4.15 10^6/uL (3.5-6.1); RED CELL DISTRIBUTION WIDTH 15.5 % (11.5-14.5); WHITE BLOOD COUNT 13.3 10^3/ul (4.5-11.0)
[2017-07-15 07:28] LABS: ALB/GLOB RATIO 1.2 (1.1-1.8); ALBUMIN 3.1 g/dL (3.0-4.8); CALCIUM 8.5 mg/dL (8.4-10.5)
[2017-07-15] MEDS: Budesonide 0.5 mg/2 ml Inhal Susp UD IH SCH ×2 (07:40→19:42)
[2017-07-15] MEDS: Albuterol-Ipratrop 3 mg / 0.5 (3 ml) UD IH SCH ×3 (07:40→19:41)
[2017-07-15] MEDS: Arformoterol 15 mcg/2 ml Inh Sol IH SCH ×2 (07:40→19:41)
[2017-07-15] MEDS ORDERED: cefTRIAXone 1 gm 1 GM/100 ML BAG IVPB SCH (10:00)
[2017-07-15] MEDS: Pantoprazole 40 mg EC Tab PO SCH ×2 (10:35→10:54)
[2017-07-15] MEDS: Meropenem 1g/NS 100mL IVPB 1 GM/100 ML PIGGYBACK IVPB SCH (10:36)
[2017-07-15] MEDS: Sodium Chloride 0.9% 1,000 ML IV SCH (10:39)
[2017-07-15 11:30] LABS: CALCIUM 8.7 mg/dL (8.4-10.5)
--- NOTE | 2017-07-15 13:15 | PN ---
DATE: REASON FOR CONSULTATION AND FOLLOWUP: PVCs, cardiac evaluation, arrhythmia, CVA, possible intracranial bleed. SUBJECTIVE: The patient is lying flat, now in . Denies any chest pain, shortness of breath. Denies any palpitation. PHYSICAL EXAMINATION GENERAL: Not in apparent distress. VITAL SIGNS: Temperature afebrile, heart rate 52, blood pressure 106/53. HEENT: PERRLA. Extraocular muscles intact. NECK: Supple. No carotid bruit or thyromegaly. CHEST: Clear to auscultation. HEART: S1 and S2 regular. ABDOMEN: Soft. EXTREMITIES: Clubbing and cyanosis negative. LABORATORY DATA: Blood workup as follows: WBC 13.3, hemoglobin 11.3, hematocrit 35.3, platelet count 266,000. Chemistry shows sodium 141, potassium 4.0, chloride 106, carbon dioxide 21, anion gap of 19, BUN 39 and creatinine 3.1. Patient had echocardiography done on 12/08/2016, ejection fraction 65%, mild aortic regurgitation, [id number]-ep-tuygnghu mitral regurgitation, [id number] tricuspid regurgitation. IMPRESSION: Acute kidney injury, which was not present on admission; altered mental status; intracranial bleed; premature ventricular contractions, resolved; bradycardia secondary to beta-lloyd, pressure is controlled; dementia; benign prostatic hypertrophy; chronic obstructive pulmonary disease. RECOMMENDATIONS: Continue hydration. Monitor renal function. Avoid nephrotoxic medication. Continue aspirin. Continue atorvastatin. Continue metoprolol. Follow up the lab. We will follow with you. We will put him on p.r.n. hydralazine. We will increase fluid to normal saline at 75 mL an hour. Thank you Dr. Aguilar for providing us the opportunity in taking care of the patient, Eric Blancas. Dl Vázquez MD
--- NOTE | 2017-07-15 14:34 | PN ---
DATE: 07/15/2017 CHIEF COMPLAINT: Fall, left basal ganglion hemorrhage. HISTORY OF PRESENT ILLNESS: The patient is sitting up in bed, comfortable. No acute events overnight. PAST MEDICAL HISTORY: History of TIA, dementia, behavioral disturbance, CHF, COPD, and osteoarthritis. REVIEW OF SYSTEMS: A 14-point review of systems is negative except as per the HPI. ALLERGIES: NO KNOWN DRUG ALLERGIES. MEDICATIONS: Reviewed by nurse reconciliation sheet. SOCIAL HISTORY: No illicit drug use or EtOH use at this time. PHYSICAL EXAMINATION: VITAL SIGNS: Temperature of 97.8, pulse rate of 55, blood pressure , respiratory rate of 18, oxygen saturation 96% on room air. GENERAL: The patient is sitting up in bed, in no acute distress. HEENT: Head is atraumatic and normocephalic. PERRLA. Extraocular muscles intact. NECK: Supple. No JVD. No adenopathy noted. LUNGS: Clear to auscultation. No adventitious sounds. HEART: S1 and S2. Normal rate and rhythm. No murmurs, rubs, or gallops. ABDOMEN: Soft, nontender, nondistended. Bowel sounds present. EXTREMITIES: No clubbing, no cyanosis. Peripheral pulses 2+ felt bilaterally. NEUROLOGIC: The patient is alert and oriented to person, place, and year. Recall after 5 minutes is 0/3. Poor attention span and slow thought process. Speech is dysarthric with flattening of the right nasolabial fold. Otherwise, rest of the cranial nerves are intact. Motor: Moves all extremities equally except for decreased finger tap on the right when compared to the left. Sensory: Withdraws to localized noxious stimulus. Light touch is intact. DTRs are 2+ throughout. Ltiohe-rz-ltqx intact. He has mild resting tremor. Toes are upgoing bilaterally. Gait is deferred for now. LABORATORY DATA: Sodium 142, potassium 4.1, chloride 105, carbon dioxide 20, BUN of 41, creatinine of 3.1, random glucose of 81. ASSESSMENT AND PLAN: An 87-year-old man with past medical history of chronic obstructive pulmonary disease; osteoarthritis; dementia with behavioral disturbance, on Aricept and Risperdal; recent diagnosis of community-acquired pneumonia, on Rocephin. During the hospital stay, he had a code stroke where he was found to have right facial droop and some slurring of speech and found to have a left small basal ganglia hemorrhage, which is secondary to hypertensive urgency and now his repeat CAT scan shows stability of the hemorrhage, no further worsening. He is on the medical floor and is doing well. Occasionally, he has hallucinations. At this time: 1. Continue with atorvastatin 40 mg p.o. daily for stroke prevention and for dyslipidemia. 2. No aspirin or antiplatelets for two weeks from the acute onset of bleed. 3. Keep blood pressure systolic between 130 to 140 and diastolic between 70 to 80. 4. Keep blood sugar between 140 to 180. 5. PT/OT and likely would benefit from subacute rehab at this time. 5. Continue current present medical management. Lizandro Jones MD
--- NOTE | 2017-07-15 15:37 | PN ---
DATE: 07/15/2017 SUBJECTIVE: The patient is seen lying in bed. He appears comfortable. He is awake, he is alert. He is nonverbal. PHYSICAL EXAMINATION: GENERAL: Elderly male, lying in bed. VITAL SIGNS: Blood pressure 115/57, heart rate 55, respiratory rate 18, temperature 97.8. HEENT: Normocephalic, atraumatic. NECK: Supple, no JVD. LUNGS: Bilateral equal air entry, no rales. EXTREMITIES: No lower extremity edema. INTAKE AND OUTPUT: 1700/200. LABORATORY DATA: WBC 13.3, hemoglobin 11.7, hematocrit 36, platelets 266. Sodium 142, potassium 4.1, chloride 105, CO2 of 20, BUN 41, creatinine 3.1. Urinalysis: Yellow, slightly cloudy, pH 5.0, specific gravity 1.030, protein 30, ketones trace, leukocyte esterase trace, urine sodium 36, urine creatinine 267. CURRENT MEDICATIONS: Aricept 5 mg; Brovana; doxycycline 100 q. 12; DuoNeb; Ecotrin; Lipitor 40; Lopressor 25 b.i.d., not given this morning; meropenem 500 q. 12; amlodipine 10, not given; Protonix; sodium chloride at 75, started this morning; vitamin B6. ASSESSMENT AND PLAN: 1. Acute kidney injury, worsening renal parameters. The patient appears to be oliguric. 2. Acute hemorrhagic stroke. 3. Hypotension. 4. Dementia. 5. History of hypertension. PLAN: 1. Currently, the patient is hypotensive, would avoid hypotension, hold antihypertensives. 2. Agree with IV fluid resuscitation. 3. Monitor urine output closely. 4. Monitor daily electrolytes. 5. Avoid nephrotoxins. 6. Dose all antibiotics for creatinine clearance about 30 mL/minute. Jen Merritt MD
[2017-07-15] MEDS ORDERED: Meropenem 500 MG in Sodium Chloride 0.9% 50 ML IVPB SCH (22:00)
--- NOTE | 2017-07-15 22:16 | PN ---
DATE: 07/14/2017 SUBJECTIVE: Patient is comfortable, in no distress. He is seen however, in the bed, more sleepy. Patient had no abdominal pain. No nausea. No vomiting. Still have no fever, no chills. PHYSICAL EXAMINATION: VITAL SIGNS: Temperature 98, heart rate 52, blood pressure is 114/47. HEAD AND NECK: Normal. No JVD. No thyromegaly. CHEST: Clear, good air entry. LUNGS: There is basal rales. CARDIAC: First and second sounds normal. ABDOMEN: Soft, nontender. EXTREMITIES: No edema. NEUROLOGIC: Normal. LABORATORY DATA: White count 13.8, hemoglobin 13.1, hematocrit 39.2, platelet 274. He also had sodium 140, potassium 4.5, chloride 103, bicarbonate 23, BUN 21, creatinine 2.6, and calcium 9.3. Liver function test is normal. IMPRESSION AND PLAN: 1. Leukocytosis. Chest x-ray is positive for pneumonia. So, patient does have sepsis with leukocytosis and positive infiltrate on chest x-ray. We will start the patient on meropenem. We will get Infectious Disease consult by Dr. Zayas and will follow up clinically. 2. Acute renal failure. We will get the orange grower on the case. We will discontinue Cozaar 100 mg daily because of high creatinine and we will monitor his BUN and creatinine on daily basis. 3. Dementia with multiple strokes. We will follow up on that, continue baby aspirin. 4. Dysphagia. We will continue to monitor the patient's status. May be he can tolerate p.o diet, pureed diet or thickened diet for now. 5. Hypertension, seems stable. We will discontinue the Cozaar and we will monitor his blood pressure. Give hydralazine instead of the Cozaar 100. However, we will monitor the blood pressure carefully. We will hold any blood pressure medications for systolic less than 100. 6. Hypercholesterolemia, chronic obstructive pulmonary disease. Continue nebulizer treatment. Continue Lipitor. Also, continue Pulmicort. Continue current therapy. Currently patient is on IV fluid 75 mL per hour. We will continue that and we will follow up clinically. Repeat labs in the morning. Cody Aguilar MD
[2017-07-16] MEDS: Sodium Chloride 0.9% 1,000 ML IV SCH (02:32)
[2017-07-16 07:48] LABS: BASO # 0.02 K/mm3 (0.0-2.0); BASO % 0.2 % (0.0-3.0); EOS # 0.1 (0.0-0.7); EOS % 0.5 % (1.5-5.0); GRAN # 10.3 (1.4-6.5); LYMPH # 1.6 (1.2-3.4); LYMPH % 12.1 % (22.0-35.0); MEAN CELL VOLUME 86.9 fl (80.0-105.0); MEAN CORPUSCULAR HEMOGLOBIN 28.6 pg (25.0-35.0); MEAN CORPUSCULAR HGB CONC 32.9 g/dl (31.0-37.0); MONO # 1.2 (0.1-0.6); MONO % 9.2 % (1.0-6.0); RBC 4.2 10^6/uL (3.5-6.1); RED CELL DISTRIBUTION WIDTH 15.7 % (11.5-14.5); WHITE BLOOD COUNT 13.2 10^3/ul (4.5-11.0)
[2017-07-16] MEDS: Albuterol-Ipratrop 3 mg / 0.5 (3 ml) UD IH SCH ×3 (07:54→20:04)
[2017-07-16] MEDS: Arformoterol 15 mcg/2 ml Inh Sol IH SCH ×2 (07:54→20:04)
[2017-07-16] MEDS: Budesonide 0.5 mg/2 ml Inhal Susp UD IH SCH ×2 (07:54→20:04)
[2017-07-16 08:10] LABS: ALB/GLOB RATIO 1.1 (1.1-1.8); ALBUMIN 3.2 g/dL (3.0-4.8); CALCIUM 8.8 mg/dL (8.4-10.5)
--- NOTE | 2017-07-16 09:55 | CON ---
DATE: 07/15/2017 LOCATION: Room 365, bed 1. CHIEF COMPLAINT: Weakness since several days. HISTORY OF PRESENT ILLNESS: This is an 87-year-old male with chronic obstructive lung disease, dementia, hypertension, TIA, osteoarthritis, congestive heart failure and cataract, who was admitted on 07/11/2017 with diagnosis of abdominal pain, intractable vomiting. Chest x-ray was found to have questionable infiltrates. Patient does not have any shortness of breath, no fevers or chills. He is weak and end stage appearing. No abdominal pain at this point, no diarrhea. PAST MEDICAL HISTORY: Includes chronic obstructive lung disease, dementia, hypertension, TIA, osteoarthritis, congestive heart failure and cataract. PAST SURGICAL HISTORY: Noncontributory. ALLERGIES: PATIENT HAS NO KNOWN ALLERGIES. MEDICATIONS AT HOME: Include aspirin, Avodart, Aricept, hydralazine, and Cozaar. PHYSICAL EXAMINATION: GENERAL: Patient in bed, appearing chronically ill, end stage. VITAL SIGNS: Temperature of 97.8, pulse rate of 52, blood pressure is , respiratory rate 18, was up to 24 and 28 yesterday. HEENT: Unremarkable. NECK: Supple. LUNGS: Have decreased breath sounds. HEART: Normal S1, S2. LABORATORY DATA: Reveals a white count of 13,800 yesterday and 13,300 today, hemoglobin of 11, platelets of 256. Chemistries reveal a BUN of 41, creatinine is up to 3.1, and on initial day of admission it was 0.9. Procalcitonin from yesterday is 0.24. Dr Lizandro Jones's note is reviewed from today. During the hospitalization, patient had a stroke code where he was noted to have a right facial droop. Chest x-ray is noted to have questionable left infiltrate. ASSESSMENT AND PLAN: This is an 87-year-old male with chronic obstructive lung disease, dementia, hypertension, osteoarthritis, transient ischemic attack, congestive heart failure with severe sepsis, healthcare associated pneumonia with acute kidney injury, creatinine has changed from 0.9 to 2.6, status post stroke code with a right facial droop and cerebrovascular accident. We will treat the patient with Maxipime and doxycycline. The dose of vancomycin will be given per order. Blood cultures, urine cultures. We will follow closely with you. Overall prognosis quite poor. Virgil Zayas MD [facility] # [id number]
[2017-07-16] MEDS: Cefepime 1gm in NS 100ml 1 GM/100 ML BAG IVPB SCH (10:46)
[2017-07-16] MEDS: Pantoprazole 40 mg EC Tab PO SCH (10:47)
--- NOTE | 2017-07-16 13:36 | RAD ---
PROCEDURE: Radiographs of the Left Shoulder HISTORY: l shoulder pain COMPARISON: No prior. FINDINGS: BONES: Normal. No fracture. JOINTS: Normal. Glenohumeral and acromioclavicular joints preserved. No osteoarthritis. SOFT TISSUES: Normal. OTHER FINDINGS: None. IMPRESSION: Normal radiographs of the left shoulder.
[2017-07-16] MEDS ORDERED: Triamcinolone Acetonide 40 mg/mL Inj IU ONE (14:02)
[2017-07-16] MEDS ORDERED: Bupivacaine 0.25% Inj(30mL) INJ ONE (14:02)
--- NOTE | 2017-07-16 18:39 | PN ---
DATE: REASON FOR CONSULTATION: PVCs, cardiac evaluation, arrhythmia, CVA, possible intracranial bleed. SUBJECTIVE: Patient is lying flat, pointing to the pain in the left shoulder. OBJECTIVE AND PHYSICAL EXAMINATION: GENERAL: Not in apparent distress. VITAL SIGNS: Temperature afebrile, heart rate 69, blood pressure 142/59. HEENT: PERRLA. Extraocular muscles intact. NECK: Supple. No carotid bruit or thyromegaly. CHEST: Clear to auscultation. HEART: S1 and S2 regular. ABDOMEN: Soft. EXTREMITIES: Clubbing and cyanosis, negative. LABORATORY DATA: Blood workup as follows: WBC 13.3, hemoglobin 12.0, hematocrit 36.5, platelet count 248. Chemistry shows sodium 145, potassium 4.0, chloride 109, carbon dioxide 20, anion gap of 20, BUN 42, and creatinine 2.3. IMPRESSION: Acute chronic kidney disease on chronic kidney disease, improving with hydration; diabetes; cerebrovascular accident, intracerebral bleed; complaining of pain in the left shoulder, which is tender, mild on movement, also pain increases and not appears to be ischemic or cardiac; acute kidney injury which was not present during admission; change in mental status; premature ventricular contractions, resolved; tachycardia, also improves on beta-lloyd; bradycardia, secondary to beta-lloyd; dementia, appreciably controlled; benign prostatic hypertrophy; chronic obstructive pulmonary disease. RECOMMENDATIONS: We will give a dose of ibuprofen for pain. Continue gentle hydration until tonight; the urinary function is improving. We will follow with you. We will give ibuprofen 600 mg, three doses, first dose now; we will give only three days' of ibuprofen. Thank you, Dr. Scherer, for providing us the opportunity in taking care of the patient, Eric Blancas. Dl Vázquez MD cc: Cody Aguilar MD
[2017-07-16] MEDS: Lidocaine 5% Patch TD SCH (18:51)
[2017-07-16] MEDS: Dextrose 5%/0.45% NS 1,000 ML IV SCH (20:11)
--- NOTE | 2017-07-16 21:22 | PN ---
DATE: 07/16/2017 SUBJECTIVE: Patient is in bed, in no acute distress, nontoxic on exam. PHYSICAL EXAMINATION: VITAL SIGNS: Temperature is 97, blood pressure is 160/50, respiratory rate of 20, heart rate of 70. HEENT: Unremarkable. \NECK: Supple. LUNGS: Have decreased breath sounds. HEART: Normal S1 and S2. ABDOMEN: Soft, nontender. LABORATORY EXAMINATION: Reveals a white count of 13,200, hemoglobin of 12, platelets of 248. Chemistries reveal a BUN of 42, creatinine of 2.3, procalcitonin is 0.24. Urinalysis is noted. Microbiology reveals the blood cultures are no growth. Urine cultures negative. Nasal MRSA is negative. Shoulder x-ray is reviewed. Normal x-ray of the left shoulder. ASSESSMENT AND PLAN: An 87-year-old male who was seen early this morning in room 365, bed 1, with a history of chronic obstructive lung disease, dementia, hypertension, transient ischemic attack, osteoarthritis, congestive heart failure and cataract, who was admitted with abdominal pain, intractable vomiting and questionable infiltrate with congestive heart failure, had transient ischemic attack. Severe sepsis, healthcare-associated pneumonia with acute kidney injury. Creatinine is changed from 0.9 to 2.6. Patient is status post code stroke with right facial droop with cerebrovascular accident, on Maxipime and doxycycline, then one dose of vancomycin, day #2. Patient's procalcitonin is 0.24 speaks against bacterial pneumonia. The blood cultures are no growth at 24 hours. Urine cultures are no growth at 24 hours, on doxycycline and Maxipime, day #2. Overall prognosis is quite poor. We will give a short course of antibiotics. pending panculture, final culture results. Virgil Zayas MD
--- NOTE | 2017-07-16 23:28 | PN ---
DATE: 07/15/2017 SUBJECTIVE: An 87-year-old male. The patient complained of left shoulder pain, also has difficulty swallowing with soft diet. The daughter next to the bedside. There is no other complaint. No nausea. No vomiting. PHYSICAL EXAMINATION: VITAL SIGNS: Temperature 98.4, heart rate 59, blood pressure 118/55, respiratory rate 19, saturations 97%. HEAD AND NECK: Normal. No JVD. No thyromegaly. CHEST: Clear. CARDIAC: First sound and second sound normal. No murmur, rub or gallop. ABDOMEN: Soft, nontender. EXTREMITIES: No edema. Left shoulder exam shows decreased range of motion secondary to pain. NEUROLOGIC: The patient is moving all extremities. He respond to questions. He talks sometimes, sometimes he does not. A little bit lethargic. LABORATORY STUDIES: The patient has white count 13.3, hemoglobin 11.7, hematocrit 35 and platelets 266. His chemistry showed sodium 141, potassium 4.1, chloride 106, bicarb 21, BUN 39, creatinine is 3.1, glucose 73. Liver function test is normal. IMPRESSION AND PLAN: 1. Dysphagia. We will continue to try the pureed diet as the speech therapist recommends. We will try assist him in eating. 2. Acute cerebrovascular accident. Repeat CT scan was negative for bleed. However, we will discuss with the neurologist about that. 3. Acute renal failure, probably could be part of it due to angiotensin receptor blockers, which is Cozaar. We will discontinue that medicine. Get renal consult, Dr. Merritt or Dr. Gramajo, the group and we will continue IV hydration. Also could be low blood pressure. We will discontinue the hydralazine. 4. Pneumonia. Continue meropenem. Follow up with Infectious Disease consults. 5. Acute cerebrovascular accident, hemorrhagic versus not hemorrhagic. We will discuss with the neurologist. 6. Carotid stenosis. Continue Lipitor. Follow up with the recommendations. PLAN: Continue current therapy. Cody Aguilar MD
--- NOTE | 2017-07-17 00:45 | PN ---
DATE: 07/16/2017 SUBJECTIVE: Patient is seen lying in bed. He is awake, he is alert. He is gesturing. He wants to eat. As per the nursing staff, patient is unable to swallow. PHYSICAL EXAMINATION: GENERAL: Elderly male, lying in bed. VITAL SIGNS: Blood pressure 142/53, heart rate 64, respiratory rate 19, temperature 97.6. HEENT: Normocephalic, atraumatic. NECK: Supple, no JVD. LUNGS: Bilateral equal air entry, no rales. CARDIAC: S1, S2, regular rate and rhythm, no murmur, no rub. ABDOMEN: Soft, nondistended, nontender, bowel sounds present. EXTREMITIES: No lower extremity edema. LABORATORY DATA: WBC 13, hemoglobin 12, hematocrit 36.5, platelets 248. Sodium 145, potassium 4.1, chloride 109, CO2 20, BUN 42, creatinine 2.3, glucose 69, calcium 8.8. Blood cultures, no growth. CURRENT MEDICATIONS: Aricept, Brovana, D5 half-normal saline at 60, doxycycline 100 q. 12, DuoNeb, Lidoderm, Lipitor, Lopressor 25 b.i.d. cefepime 1 g daily, amlodipine 10, Protonix, Pulmicort, normal saline at 75, Tylenol. ASSESSMENT: 1. Acute kidney injury, resolving. 2. Acute hemorrhagic stroke. 3. Status post hypotension. 4. Dementia. PLAN: 1. Continue IV fluids. 2. Avoid hypotension. 3. Monitor urine output closely. 4. Continue to hold antihypertensives. Jen Merritt MD
[2017-07-17] MEDS: Arformoterol 15 mcg/2 ml Inh Sol IH SCH ×2 (07:55→20:37)
[2017-07-17] MEDS: Budesonide 0.5 mg/2 ml Inhal Susp UD IH SCH ×2 (07:55→20:37)
[2017-07-17] MEDS: Albuterol-Ipratrop 3 mg / 0.5 (3 ml) UD IH SCH ×3 (07:55→20:37)
[2017-07-17] MEDS: Pantoprazole 40 mg EC Tab PO SCH (08:37)
--- NOTE | 2017-07-17 09:49 | PN ---
DATE: 07/15/2017 SUBJECTIVE: This patient was seen and evaluated earlier. The patient is tolerating the liquid diet. PHYSICAL EXAMINATION: VITAL SIGNS: Temperature is 98.4, blood pressure 118/75, respirations 19, pulse 59. HEENT: Atraumatic and anicteric. NECK: Supple. HEART: S1, S2 heard. LUNGS: Bilateral air entry present. ABDOMEN: Soft. There is no tenderness. EXTREMITIES: No cyanosis. No clubbing. LABORATORY DATA: Hemoglobin 11.7, hematocrit 35.9, WBC 11.3 and platelets 266. Creatinine 3.1 and BUN 41. IMPRESSION: This is an 87-year-old patient with episodes of vomiting and the left upper quadrant subsided, has now acute kidney injury with episodes of hypertension. I would recommend followup of the hemoglobin and hematocrit, followup of the labs and the patient is on clear liquid diet, further as the patient is tolerating. The patient had a speech therapy evaluation. PLAN: 1. Continue the present management. 2. Close follow up of the renal function. We will continue to patient. He has been evaluated by speech therapy. We will continue to closely follow up the care and suggest further management based on the clinical course. The speech therapy note was noticed, evaluation noticed. Thank you very much for allowing us to participate in the care of the patient. Seth Valerio MD
[2017-07-17] MEDS ORDERED: Lidocaine 5% Patch TD SCH (10:00)
[2017-07-17] MEDS: Lidocaine 5% Patch TD SCH (10:43)
--- NOTE | 2017-07-17 10:48 | PN ---
DATE: 07/16/2017 SUBJECTIVE: The patient is still complaining left shoulder pain, Lidoderm patch has been ordered and Orthopedic consult will see the patient for possible intraarticular injections. X-ray also has been ordered. The patient otherwise is stable. He responds well to calling his name. He points to shoulder pain, which is less than before. He is awake and responds. He moves all extremities. PHYSICAL EXAMINATION: VITAL SIGNS: His temperature is 97.6, heart rate 70, blood pressure 142/59, respirations 20, and saturation 96% on room air. HEAD AND NECK: Normal. No JVD. No thyromegaly. CHEST: Clear. CARDIAC: First sound and second sound normal. ABDOMEN: Soft and nontender. EXTREMITIES: No edema. NEUROLOGICAL: Other than decreased speech and difficulty swallowing, he moves all extremities. MUSCULOSKELETAL: Left shoulder decreased range of motion. DIAGNOSTIC DATA: Shoulder x-ray reported as normal. LABORATORY DATA: Sodium 145, potassium 4.1, chloride 109, bicarb 20, BUN 42, creatinine down to 2.3, blood sugar 69, and calcium 8.8. Liver function test is normal. His albumin is normal at 6, and globulin is normal at 3.2. The patient also had white count which is 13.2, hemoglobin 12, hematocrit 36.5, platelets 248. The patient had a UA, which was negative. Also the patient had a chest x-ray, which was done in 07/14, which was consistent with possible infiltrates, infection versus edema, patchy left lower lobe atelectasis or infiltrates. IMPRESSION AND PLAN: 1. Acute cerebrovascular accident, possible hemorrhagic. We will hold off on any aspirin. Discussed with the Information Systems Security Developer. No aspirin for two weeks. No anticoagulation for three weeks. Continue Lipitor. 2. Hypertension, stable. Continue current medications. The patient currently is on metoprolol 25 mg twice a day and amlodipine 10 mg once a day, stable in that. 3. Left lower lobe pneumonia. Continue meropenem and doxycycline. He is on 1 g IV q. 24 hours. Seen by ID consult Dr. Zayas. 4. Chronic obstructive pulmonary disease. Continue Brovana, continue DuoNeb. 5. Acute renal failure, seems improving. Continue hydration. His creatinine now is 2.3, expect to get better with hydration. 6. Dysphagia. We will continue followup. Maybe when the patient's mental status improves, his swallowing ability will improve. We will follow up on that on daily basis. Continue current medicines. Follow up clinically. We will put the SCDs on for both lower extremities to prevent deep venous thrombosis and continue IV fluid D5 half normal saline at 60 mL per hour because of low sugar. Cody Aguilar MD
[2017-07-17] MEDS: Cefepime 1gm in NS 100ml 1 GM/100 ML BAG IVPB SCH (11:38)
--- NOTE | 2017-07-17 12:40 | CP.PCM.PN ---
Subjective - Date & Time of Evaluation Date of Evaluation: 07/17/17 Time of Evaluation: 11:05 - Subjective Subjective: Comfortable in bed, no fevers. Objective - Vital Signs/Intake and Output Vital Signs (last 24 hours): Temp Pulse Resp BP Pulse Ox 99 F 61 17 151/62 H 97 07/17/17 08:10 07/17/17 08:10 07/17/17 08:10 07/17/17 11:46 07/17/17 08:10 Intake and Output: 07/17/17 07/17/17 06:59 18:59 Intake Total 915 Output Total 200 Balance 715 - Medications Medications: Current Medications Acetaminophen (Tylenol 650 Mg Supp) 650 mg RC Q6H PRN PRN Reason: Pain, Mild (1-3) Last Admin: 07/16/17 14:52 Dose: 650 mg Albuterol/Ipratropium (Duoneb 3 Mg/0.5 Mg (3 Ml) Ud) 3 ml IH TIDRESP [facility] Last Admin: 07/17/17 07:55 Dose: 3 ml Amlodipine Besylate (Norvasc) 10 mg PO DAILY [facility] Last Admin: 07/17/17 11:46 Dose: 10 mg Arformoterol Tartrate (Brovana) 15 mcg IH [id number] [facility] Last Admin: 07/17/17 07:55 Dose: 15 mcg Atorvastatin Calcium (Lipitor) 40 mg PO DIN [facility] Last Admin: 07/16/17 18:42 Dose: Not Given Budesonide (Pulmicort Respules) 0.5 mg IH BIDRESP [facility] Last Admin: 07/17/17 07:55 Dose: 0.5 mg Donepezil HCl (Aricept) 5 mg PO HS [facility] Last Admin: 07/16/17 21:26 Dose: Not Given Hydralazine HCl (Apresoline) 10 mg IVP Q6 PRN PRN Reason: Systolic Blood Pressure Last Admin: 07/16/17 23:48 Dose: 10 mg Nicardipine HCl (Cardene Iv Premix) 20 mg in 200 mls @ 50 mls/hr IV .Q4H PRN; Protocol; 5 MG/HR PRN Reason: TITRATE PER MD ORDER Last Admin: 07/13/17 03:38 Dose: 2.5 mg/hr, 25 mls/hr Doxycycline Hyclate 100 mg/ (Sodium Chloride) 100 mls @ 100 mls/hr IVPB Q12 RYLIE PRN Reason: Protocol Last Admin: 07/17/17 10:31 Dose: 100 mls/hr Cefepime HCl (Maxipime 1gm) 1 gm in 100 mls @ 100 mls/hr IVPB Q24H RYLIE PRN Reason: Protocol Stop: 07/23/17 10:01 Last Admin: 07/17/17 11:38 Dose: 100 mls/hr Dextrose/Sodium Chloride (Dextrose 5%/0.45% Ns 1000 Ml) 1,000 mls @ 60 mls/hr IV .[id number] [facility] Last Admin: 07/16/17 20:11 Dose: 60 mls/hr Ibuprofen (Motrin Tab) 600 mg PO Q6H PRN PRN Reason: LEFT SHOULDER PAIN Lidocaine (Lidoderm) 1 ea TD DAILY [facility] Last Admin: 07/17/17 10:43 Dose: 1 ea Metoprolol Tartrate (Lopressor) 25 mg PO BID [facility] Last Admin: 07/17/17 10:45 Dose: 25 mg Pantoprazole Sodium (Protonix Ec Tab) 40 mg PO ACB [facility] Last Admin: 07/17/17 08:37 Dose: 40 mg Pyridoxine HCl (Vitamin B6 50 Mg Tab) 50 mg PO DAILY [facility] Last Admin: 07/17/17 10:44 Dose: 50 mg - Labs Labs: 07/16/17 07:00 07/16/17 07:00 PT 11.9 SECONDS (9.4-12.5) 07/09/17 20:05 INR 1.04 (0.93-1.08) 07/09/17 20:05 APTT 33.2 Seconds (25.1-36.5) 07/09/17 20:05 - Constitutional Appears: Chronically Ill - Head Exam Head Exam: NORMAL INSPECTION - Respiratory Exam Respiratory Exam: Decreased Breath Sounds - Cardiovascular Exam Cardiovascular Exam: +S1, +S2 - GI/Abdominal Exam GI & Abdominal Exam: Soft. absent: Tenderness Assessment and Plan - Assessment and Plan (Free Text) Plan: Assessment severe sepsis with acute renal failure due to HCAP TIA COPD dementia HTN osteoarthritis chronic CHF cataracts Plan Continue Cefepime and Doxycycline day 3 to complete 4-7 days of therapy
[2017-07-17 14:08] LABS: CALCIUM 9.1 mg/dL (8.4-10.5)
--- NOTE | 2017-07-17 15:09 | CP.PCM.PN ---
<Kelly Wei - Last Filed: 07/17/17 15:13> Subjective - Date & Time of Evaluation Date of Evaluation: 07/17/17 Time of Evaluation: 09:00 - Subjective Subjective: Neurology PGY-[address] Jones Pt is sleeping but easily awaken. He told me that his shoulder hurts. Denies other complaints Objective - Vital Signs/Intake and Output Vital Signs (last 24 hours): Temp Pulse Resp BP Pulse Ox 99 F 61 17 151/62 H 97 07/17/17 08:10 07/17/17 08:10 07/17/17 08:10 07/17/17 11:46 07/17/17 08:10 Intake and Output: 07/17/17 07/17/17 06:59 18:59 Intake Total 915 Output Total 200 Balance 715 - Medications Medications: Current Medications Acetaminophen (Tylenol 650 Mg Supp) 650 mg RC Q6H PRN PRN Reason: Pain, Mild (1-3) Last Admin: 07/16/17 14:52 Dose: 650 mg Albuterol/Ipratropium (Duoneb 3 Mg/0.5 Mg (3 Ml) Ud) 3 ml IH TIDRESP [facility] Last Admin: 07/17/17 13:37 Dose: 3 ml Amlodipine Besylate (Norvasc) 10 mg PO DAILY [facility] Last Admin: 07/17/17 11:46 Dose: 10 mg Arformoterol Tartrate (Brovana) 15 mcg IH [id number] [facility] Last Admin: 07/17/17 07:55 Dose: 15 mcg Atorvastatin Calcium (Lipitor) 40 mg PO DIN [facility] Last Admin: 07/16/17 18:42 Dose: Not Given Budesonide (Pulmicort Respules) 0.5 mg IH BIDRESP [facility] Last Admin: 07/17/17 07:55 Dose: 0.5 mg Donepezil HCl (Aricept) 5 mg PO HS [facility] Last Admin: 07/16/17 21:26 Dose: Not Given Hydralazine HCl (Apresoline) 10 mg IVP Q6 PRN PRN Reason: Systolic Blood Pressure Last Admin: 07/16/17 23:48 Dose: 10 mg Nicardipine HCl (Cardene Iv Premix) 20 mg in 200 mls @ 50 mls/hr IV .Q4H PRN; Protocol; 5 MG/HR PRN Reason: TITRATE PER MD ORDER Last Admin: 07/13/17 03:38 Dose: 2.5 mg/hr, 25 mls/hr Doxycycline Hyclate 100 mg/ (Sodium Chloride) 100 mls @ 100 mls/hr IVPB Q12 RYLIE PRN Reason: Protocol Last Admin: 07/17/17 10:31 Dose: 100 mls/hr Cefepime HCl (Maxipime 1gm) 1 gm in 100 mls @ 100 mls/hr IVPB Q24H RYLIE PRN Reason: Protocol Stop: 07/23/17 10:01 Last Admin: 07/17/17 11:38 Dose: 100 mls/hr Dextrose/Sodium Chloride (Dextrose 5%/0.45% Ns 1000 Ml) 1,000 mls @ 60 mls/hr IV .[id number] [facility] Last Admin: 07/16/17 20:11 Dose: 60 mls/hr Ibuprofen (Motrin Tab) 600 mg PO Q6H PRN PRN Reason: LEFT SHOULDER PAIN Lidocaine (Lidoderm) 1 ea TD DAILY [facility] Last Admin: 07/17/17 10:43 Dose: 1 ea Metoprolol Tartrate (Lopressor) 25 mg PO BID [facility] Last Admin: 07/17/17 10:45 Dose: 25 mg Pantoprazole Sodium (Protonix Ec Tab) 40 mg PO ACB [facility] Last Admin: 07/17/17 08:37 Dose: 40 mg Pyridoxine HCl (Vitamin B6 50 Mg Tab) 50 mg PO DAILY [facility] Last Admin: 07/17/17 10:44 Dose: 50 mg - Labs Labs: 07/16/17 07:00 07/17/17 13:40 PT 11.9 SECONDS (9.4-12.5) 07/09/17 20:05 INR 1.04 (0.93-1.08) 07/09/17 20:05 APTT 33.2 Seconds (25.1-36.5) 07/09/17 20:05 - Constitutional Appears: No Acute Distress - Head Exam Head Exam: ATRAUMATIC, NORMAL INSPECTION, NORMOCEPHALIC - Eye Exam Eye Exam: EOMI, Normal appearance, PERRL. absent: Scleral icterus Pupil Exam: NORMAL ACCOMODATION - ENT Exam ENT Exam: Mucous Membranes Moist - Neck Exam Additional comments: supple - Respiratory Exam Respiratory Exam: Clear to Ausculation Bilateral, NORMAL BREATHING PATTERN. absent: Rales, Rhonchi, Wheezes - Cardiovascular Exam Cardiovascular Exam: REGULAR RHYTHM, +S1, +S2. absent: Murmur - Extremities Exam Extremities Exam: absent: Calf Tenderness - Neurological Exam Neurological Exam: Awake Additional comments: AAO to person, general location at hospital Speech: deepened R nasal-labile fold Motor: 4/5 upper extremiteis b/l. L shoulder ROM limited by pain. good hand field sales consultant Lower extremities 3/5 b/l Sensory: intact finger to finger coordination: resting and intentional tremor - Psychiatric Exam Psychiatric exam: Normal Affect, Normal Mood - Skin Skin Exam: Dry, Warm Assessment and Plan - Assessment and Plan (Free Text) Plan: Mr Eric Blancas, 87M, presents to the emergency department on Monday complaining of intractable vomiting x 2 days associated with epigastric discomfort. He has PMHx TIA on ASA, Dementia with behavioral/agitation on risperidal & aricept, CHF, COPD, osteoarthritis. He was diagnosed with community acquired pneumonia on rocephin IV. Then he developed severe sepsis with acute renal failure due to HCAP, now on cefepime and doxycycline. During the hospital stay, pt had a code stroke. Pt had a hemorrhagic stroke with facial drooping and slurr of speech. His BP was 190/86. He was transferred to ICU for cardene gtt and intensive neurol monitoring. On ICU monitor, it was noted that he has sinus arrthymia with frequent PVCs and PACs. Pt was transferred to remote telemetry. Pt is neurologically cleared for PEG tube placement for moderate to severe oropharyngeal dysphagia with risk for aspiration in the setting of lethargy and decreased PO intake. Hemorrhagic Stroke likely secondary to hypertensive urgency causing L small basal ganglia 9x5mm acute hemorrhage Hx TIA - Continue lipitor - No ASA or antiplatelet for 3 weeks since onset of hemorrhagic stroke - No anticoagulation for 3 weeks since onset of hemorrhagic stroke - Hold Lovenox as DVT prophylaxs - Maintain SBP 130-140, DBP 70-80. Do not drop blood pressure more than 20mmHg at a time. - Maintain blood glucose 140-180 - PT/OT/ST Shoulder pain - manage per primary and orthopedic team. On lidoderm. ICA Carotid stenosis with Hx TIA in setting of recent hemorrhagic stroke - Carotid doppler u/s: b/l 60-79% proximal ICA stenoses; vertebral artery flow ATRETIC - Medical management sinus arrthymia with frequent PVCs and PACs - started low dose beta lloyd per cardio Imaging -repeat head CT: no intracranial mass, hemorrhage or acute infarct. Numerous basal ganglia and thalamic lacunar infarcts and b/l old pontine lacunar infarcts. Extensive chronic white matter ischemic changes. -CT head: 9x5mm acute hemorrhage in the L basal ganglia; old lacunar infarctions in the R rivera radiata, R basal ganglia, R thalamus, L caudate head and L anterior basal ganglia; severe chronic microangiopathic changes and moderate age-related global parenchymal volume loss. s/r/d/w Dr. Jones <Lizandro Jones - Last Filed: 07/18/17 10:19> Objective - Vital Signs/Intake and Output Vital Signs (last 24 hours): Temp Pulse Resp BP Pulse Ox 97.6 F 56 L 18 126/67 98 07/18/17 08:09 07/18/17 08:09 07/18/17 08:09 07/18/17 08:09 07/18/17 08:09 Intake and Output: 07/18/17 07/18/17 06:59 18:59 Intake Total 980 Output Total 700 Balance 280 - Medications Medications: Current Medications Acetaminophen (Tylenol 650 Mg Supp) 650 mg RC Q6H PRN PRN Reason: Pain, Mild (1-3) Last Admin: 07/16/17 14:52 Dose: 650 mg Albuterol/Ipratropium (Duoneb 3 Mg/0.5 Mg (3 Ml) Ud) 3 ml IH TIDRESP [facility] Last Admin: 07/18/17 07:27 Dose: 3 ml Amlodipine Besylate (Norvasc) 10 mg PO DAILY [facility] Last Admin: 07/18/17 09:59 Dose: Not Given Arformoterol Tartrate (Brovana) 15 mcg IH [id number] [facility] Last Admin: 07/18/17 07:27 Dose: 15 mcg Atorvastatin Calcium (Lipitor) 40 mg PO DIN [facility] Last Admin: 07/17/17 18:10 Dose: Not Given Budesonide (Pulmicort Respules) 0.5 mg IH BIDRESP [facility] Last Admin: 07/18/17 07:27 Dose: 0.5 mg Donepezil HCl (Aricept) 5 mg PO HS [facility] Last Admin: 07/17/17 22:02 Dose: Not Given Hydralazine HCl (Apresoline) 10 mg IVP Q6 PRN PRN Reason: Systolic Blood Pressure Last Admin: 07/16/17 23:48 Dose: 10 mg Nicardipine HCl (Cardene Iv Premix) 20 mg in 200 mls @ 50 mls/hr IV .Q4H PRN; Protocol; 5 MG/HR PRN Reason: TITRATE PER MD ORDER Last Admin: 07/13/17 03:38 Dose: 2.5 mg/hr, 25 mls/hr Doxycycline Hyclate 100 mg/ (Sodium Chloride) 100 mls @ 100 mls/hr IVPB Q12 RYLIE PRN Reason: Protocol Last Admin: 07/17/17 21:58 Dose: 100 mls/hr Cefepime HCl (Maxipime 1gm) 1 gm in 100 mls @ 100 mls/hr IVPB Q24H RYLIE PRN Reason: Protocol Stop: 07/23/17 10:01 Last Admin: 07/18/17 10:07 Dose: 100 mls/hr Dextrose/Sodium Chloride (Dextrose 5%/0.45% Ns 1000 Ml) 1,000 mls @ 60 mls/hr IV .[id number] [facility] Last Admin: 07/18/17 10:09 Dose: 60 mls/hr Ibuprofen (Motrin Tab) 600 mg PO Q6H PRN PRN Reason: LEFT SHOULDER PAIN Lidocaine (Lidoderm) 1 ea TD DAILY [facility] Last Admin: 07/17/17 10:43 Dose: 1 ea Metoprolol Tartrate (Lopressor) 25 mg PO BID [facility] Last Admin: 07/18/17 09:58 Dose: Not Given Pantoprazole Sodium (Protonix Ec Tab) 40 mg PO ACB [facility] Last Admin: 07/18/17 08:27 Dose: 40 mg Pyridoxine HCl (Vitamin B6 50 Mg Tab) 50 mg PO DAILY [facility] Last Admin: 07/18/17 09:59 Dose: Not Given - Labs Labs: 07/18/17 05:30 07/18/17 05:30 PT 11.9 SECONDS (9.4-12.5) 07/09/17 20:05 INR 1.04 (0.93-1.08) 07/09/17 20:05 APTT 33.2 Seconds (25.1-36.5) 07/09/17 20:05 Attending/Attestation - Attestation I have personally seen and examined this patient.: Yes I have fully participated in the care of the patient.: Yes I have reviewed all pertinent clinical information, including history, physical exam and plan: Yes
[2017-07-17] MEDS: Dextrose 5%/0.45% NS 1,000 ML IV SCH (18:11)
--- NOTE | 2017-07-17 20:28 | PN ---
DATE: REASON FOR CONSULTATION AND FOLLOWUP: PVCs, cardiac arrhythmia evaluation, CVA, possible intracranial bleed. SUBJECTIVE: Patient denies any chest pain, shortness of breath, or any palpitations. Awake and alert. OBJECTIVE: GENERAL: Not in apparent distress. VITAL SIGNS: Temperature afebrile, heart rate 61, blood pressure 150/62. HEENT: PERRLA. Extraocular muscles intact. NECK: Supple. No carotid bruit or thyromegaly. CHEST: Clear to auscultation. HEART: S1 and S2 regular. ABDOMEN: Soft. EXTREMITIES: Clubbing and cyanosis, negative. LABORATORY DATA: Blood workup as follows: WBC 13.3, hemoglobin 12, hematocrit 36.5, platelet count 248. Chemistry shows sodium 140, potassium 4.0, chloride 101, carbon dioxide 20, anion gap of 16, BUN creatinine 1.4. IMPRESSION: Diabetes; cerebrovascular accident; intracerebral bleed; pain in the left shoulder, improving, pain does not appear to be cardiac ; acute kidney injury is improving; change in mental status; premature ventricular contractions, improved; tachycardia, resolved. RECOMMENDATIONS: Continue hydration, p.r.n. ibuprofen, avoid nephrotoxic medication, p.r.n. hydralazine, atorvastatin. We will follow with the discharge plan. Thank you, Dr. Aguilar, for providing us the opportunity in taking care of the patient, Eric Blancas. Dl Vázquez MD
--- NOTE | 2017-07-17 21:04 | PN ---
DATE: 07/17/2017 SUBJECTIVE: The patient is seen sitting up in bed. He is awake, he is alert. He does not follow commands. He is nonverbal. PHYSICAL EXAMINATION: GENERAL: Elderly male sitting up in bed. VITAL SIGNS: Blood pressure 123/84, heart rate 84, respiratory rate 18, temperature 98.7. HEENT: Normocephalic, atraumatic. NECK: Supple, no JVD. LUNGS: Bilateral equal air entry, bilateral equal expansion, no rales. CARDIAC: S1 and S2, regular rate and rhythm, no murmur, no rub. ABDOMEN: Soft, nondistended, nontender, bowel sounds present. EXTREMITIES: No lower extremity edema. LABORATORY DATA: WBC 13, hemoglobin 12, hematocrit 36.5, platelets normal. Sodium 146, potassium 4.7, chloride 114, CO2 of 20, BUN 26, creatinine 1.4, glucose 113, calcium 9.1. CURRENT MEDICATIONS: Apresoline 10 mg q. 6 p.r.n. IV, Brovana, nicardipine D5 half-normal saline at 60, doxycycline 100 q. 12, DuoNeb, Lidoderm, Lipitor, Maxipime 1 g daily, ibuprofen, amlodipine 10, Protonix, Pulmicort, Tylenol, pyridoxine. ASSESSMENT: 1. Acute kidney injury, hemodynamically mediated, resolving. 2. Hypernatremia. 3. Acute cerebrovascular accident. 4. Aphasia. 5. Hypertension. PLAN 1. Continue hypotonic IV fluids. 2. Continue current antihypertensives. 3. Avoid nephrotoxins. 4. Physical therapy. Jen Merritt MD
--- NOTE | 2017-07-18 01:39 | PN ---
DATE: SUBJECTIVE: This patient was seen and evaluated earlier today. The patient has still episodes of lethargia and fluctuating mental status. Patient nonverbal. Attempts of feeding is only with limited success. The patient tend to pocket the food. Nursing staff was concerned about it. PHYSICAL EXAMINATION: GENERAL: Temperature is 98.2, blood pressure 138/59, pulse is 66, respirations 19. HEENT: Atraumatic. Anicteric. NECK: Supple. HEART: S1 and S2 heard. LUNGS: Bilateral air entry present. The patient does have . LABORATORY DATA: BUN 26, creatinine 1.4, slowly improving renal function. ASSESSMENT AND PLAN: This 87-year-old patient admitted with episodes of vomiting and nausea, and also left upper quadrant pain. The patient was subsequently in the hospital course found to have a hemorrhagic stroke with facial drooping and slurred speech. The patient is being evaluated by speech therapist, discussed with the speech therapist also. The concern is fluctuating mental status changes making him risky for the feeding and also adequacy of the calorie intake. Attempts were made to . The patient is being evaluated by the neurologist, been cleared for the PEG tube placement, and this has been recommended in view of the severe oropharyngeal dysphagia to consider feeding tube placement. We will discuss with the family; if they are agreeable, we will consider feeding tube placement in a.m. The patient also has sepsis, acute renal failure, pneumonia. The patient is on antibiotics, on hydration. Renal function appears to be slowly improving. We will continue to closely follow up his care and suggest further management based on the clinical course. Seth Valerio MD
[2017-07-18 06:26] LABS: HEMOGLOBIN 11.7 g/dL (14.0-18.0); MEAN CELL VOLUME 87.5 fl (80.0-105.0); MEAN CORPUSCULAR HEMOGLOBIN 28.7 pg (25.0-35.0); MEAN CORPUSCULAR HGB CONC 32.9 g/dl (31.0-37.0); RBC 4.07 10^6/uL (3.5-6.1); RED CELL DISTRIBUTION WIDTH 15.5 % (11.5-14.5); WHITE BLOOD COUNT 9.3 10^3/ul (4.5-11.0)
[2017-07-18 06:54] LABS: ALB/GLOB RATIO 1.1 (1.1-1.8); ALT/SGPT 34 U/L (7-56); AST/SGOT 32 U/L (17-59); BLOOD UREA NITROGEN 21 mg/dL (7-21); CALCIUM 9.2 mg/dL (8.4-10.5); GFR AFRICAN-AMERICAN > 60; GFR NON-AFRICAN AMERICAN 57
[2017-07-18] MEDS: Arformoterol 15 mcg/2 ml Inh Sol IH SCH ×2 (07:27→20:03)
[2017-07-18] MEDS: Albuterol-Ipratrop 3 mg / 0.5 (3 ml) UD IH SCH ×3 (07:27→20:03)
[2017-07-18] MEDS: Budesonide 0.5 mg/2 ml Inhal Susp UD IH SCH ×2 (07:27→20:03)
[2017-07-18] MEDS: Pantoprazole 40 mg EC Tab PO SCH (08:27)
[2017-07-18] MEDS: Cefepime 1gm in NS 100ml 1 GM/100 ML BAG IVPB SCH (10:07)
[2017-07-18] MEDS: Dextrose 5%/0.45% NS 1,000 ML IV SCH (10:09)
[2017-07-18] MEDS: Lidocaine 5% Patch TD SCH (10:36)
--- NOTE | 2017-07-18 12:26 | CP.PCM.PN ---
Subjective - Date & Time of Evaluation Date of Evaluation: 07/18/17 Time of Evaluation: 10:45 - Subjective Subjective: Comfortable, no fevers. Objective - Vital Signs/Intake and Output Vital Signs (last 24 hours): Temp Pulse Resp BP Pulse Ox 97.6 F 56 L 18 126/67 98 07/18/17 08:09 07/18/17 08:09 07/18/17 08:09 07/18/17 08:09 07/18/17 08:09 Intake and Output: 07/18/17 07/18/17 06:59 18:59 Intake Total 980 Output Total 700 Balance 280 - Medications Medications: Current Medications Acetaminophen (Tylenol 650 Mg Supp) 650 mg RC Q6H PRN PRN Reason: Pain, Mild (1-3) Last Admin: 07/16/17 14:52 Dose: 650 mg Albuterol/Ipratropium (Duoneb 3 Mg/0.5 Mg (3 Ml) Ud) 3 ml IH TIDRESP [facility] Last Admin: 07/18/17 07:27 Dose: 3 ml Amlodipine Besylate (Norvasc) 10 mg PO DAILY [facility] Last Admin: 07/17/17 11:46 Dose: 10 mg Arformoterol Tartrate (Brovana) 15 mcg IH [id number] [facility] Last Admin: 07/18/17 07:27 Dose: 15 mcg Atorvastatin Calcium (Lipitor) 40 mg PO DIN [facility] Last Admin: 07/17/17 18:10 Dose: Not Given Budesonide (Pulmicort Respules) 0.5 mg IH BIDRESP [facility] Last Admin: 07/18/17 07:27 Dose: 0.5 mg Donepezil HCl (Aricept) 5 mg PO HS [facility] Last Admin: 07/17/17 22:02 Dose: Not Given Hydralazine HCl (Apresoline) 10 mg IVP Q6 PRN PRN Reason: Systolic Blood Pressure Last Admin: 07/16/17 23:48 Dose: 10 mg Nicardipine HCl (Cardene Iv Premix) 20 mg in 200 mls @ 50 mls/hr IV .Q4H PRN; Protocol; 5 MG/HR PRN Reason: TITRATE PER MD ORDER Last Admin: 07/13/17 03:38 Dose: 2.5 mg/hr, 25 mls/hr Doxycycline Hyclate 100 mg/ (Sodium Chloride) 100 mls @ 100 mls/hr IVPB Q12 RYLIE PRN Reason: Protocol Last Admin: 07/17/17 21:58 Dose: 100 mls/hr Cefepime HCl (Maxipime 1gm) 1 gm in 100 mls @ 100 mls/hr IVPB Q24H RYLIE PRN Reason: Protocol Stop: 07/23/17 10:01 Last Admin: 07/17/17 11:38 Dose: 100 mls/hr Dextrose/Sodium Chloride (Dextrose 5%/0.45% Ns 1000 Ml) 1,000 mls @ 60 mls/hr IV .[id number] [facility] Last Admin: 07/17/17 18:11 Dose: 60 mls/hr Ibuprofen (Motrin Tab) 600 mg PO Q6H PRN PRN Reason: LEFT SHOULDER PAIN Lidocaine (Lidoderm) 1 ea TD DAILY [facility] Last Admin: 07/17/17 10:43 Dose: 1 ea Metoprolol Tartrate (Lopressor) 25 mg PO BID [facility] Last Admin: 07/17/17 18:09 Dose: Not Given Pantoprazole Sodium (Protonix Ec Tab) 40 mg PO ACB [facility] Last Admin: 07/18/17 08:27 Dose: 40 mg Pyridoxine HCl (Vitamin B6 50 Mg Tab) 50 mg PO DAILY [facility] Last Admin: 07/17/17 10:44 Dose: 50 mg - Labs Labs: 07/18/17 05:30 07/18/17 05:30 PT 11.9 SECONDS (9.4-12.5) 07/09/17 20:05 INR 1.04 (0.93-1.08) 07/09/17 20:05 APTT 33.2 Seconds (25.1-36.5) 07/09/17 20:05 - Constitutional Appears: Chronically Ill - Head Exam Head Exam: NORMAL INSPECTION - Respiratory Exam Respiratory Exam: Decreased Breath Sounds - Cardiovascular Exam Cardiovascular Exam: +S1, +S2 - GI/Abdominal Exam GI & Abdominal Exam: Soft. absent: Tenderness Assessment and Plan - Assessment and Plan (Free Text) Plan: Assessment severe sepsis with acute renal failure due to HCAP, clinically improving TIA COPD dementia HTN osteoarthritis chronic CHF cataracts Plan Continue Cefepime and Doxycycline day 4 to complete 4-7 days of therapy - can switch to PO antibiotics once ready for discharge (doxycycline and augmentin)
[2017-07-18] MEDS ORDERED: Etomidate 20 mg/10ml Inj IV ONE (13:03)
[2017-07-18] MEDS ORDERED: Midazolam 2 MG/2 ML VIAL ONE (13:03)
--- NOTE | 2017-07-18 13:33 | PN ---
DATE: REASON FOR CONSULTATION AND FOLLOWUP: PVCs, cardiac arrhythmia evaluation, CVA, possible intracranial bleed.07/18/2017 SUBJECTIVE: Patient denies any chest pain, shortness of breath, or any palpitations. OBJECTIVE: GENERAL: Not in apparent distress. VITAL SIGNS: Temperature afebrile, heart rate , blood pressure 127/57. HEENT: PERRLA. Extraocular muscles intact. NECK: Supple. No carotid bruit or thyromegaly. CHEST: Clear to auscultation. HEART: S1 and S2 regular. ABDOMEN: Soft. EXTREMITIES: Clubbing and cyanosis negative. LABORATORY DATA: Blood workup as follows: WBC 9.3, hemoglobin 11.3, hematocrit 35.6, platelet count 262,000. Chemistry shows sodium 144, potassium 4.0, chloride 112, carbon dioxide 23, anion gap of 15, BUN 21, and creatinine 1.2. Total protein 5.8, albumin 3, albumin-globulin ratio 1.1. IMPRESSION: Cerebrovascular accident; acute aphasia with resolved acute kidney injury, improving; accompanying left shoulder pain musculoskeletal and appears not to be cardiac; acute kidney injury, improving; change in mental status; premature ventricular contraction, improved completely and resolved; cerebrovascular accident as mentioned; intracerebral bleed. RECOMMENDATIONS: Continue hydration, p.r.n. ibuprofen, avoid nephrotoxic medications; continue hydralazine p.r.n., continue atorvastatin. . We will follow. Thank you Dr. Aguilar for providing us the opportunity in taking care of the patient, Eric Blancas. Dl Vázquez MD
[2017-07-18] MEDS ORDERED: Lactated Ringer's 1,000 ML IV SCH (13:45)
--- NOTE | 2017-07-18 14:02 | PN ---
DATE: 07/17/2017 SUBJECTIVE: The patient is clinically stable. His shoulder has less pain than before. He got injection on his left shoulder. Otherwise, has a Lidoderm patch, seems better. Still has problem swallowing. PHYSICAL EXAMINATION: VITAL SIGNS: On 07/17/2017 is as follows: Temperature 98.2, heart rate 66, blood pressure , respirations 19, saturation 99%. HEAD AND NECK: Normal. No JVD. No thyromegaly. CHEST: Clear. Good air entry. CARDIAC: First sound and second sound normal. ABDOMEN: Soft and nontender. EXTREMITIES: No edema. NEUROLOGIC: The patient moves all extremities except has dysphagia. LABORATORY DATA: Chemistry includes sodium 146, potassium 4.7, chloride 114, bicarbonate 20, BUN 26, creatinine 1.4, blood sugar 111, calcium 9.1. IMPRESSION AND PLAN: 1. Acute renal failure, resolved. Continue intravenous fluid. 2. Dysphagia. The patient does have hemorrhagic stroke. He is off aspirin. Discussed with the neurologist and Gastroenterology, Dr. Valerio. I spoke with the family for possible percutaneous endoscopic gastrostomy tube in the morning because he is not able to swallow, cannot enough and feeding via the tube will be better for him. 3. Hypertension, stable. 4. Acute cerebrovascular accident, hemorrhagic, off aspirin. Continue blood pressure monitors. 5. Aspiration pneumonia. Continue meropenem and doxycycline, seems doing well. 6. The patient does have vascular dementia, is on Aricept 5 mg p.o. daily. Continue GI and DVT prophylaxis and the patient is currently on Norvasc 10 mg and metoprolol 25 b.i.d. Cody Aguilar MD
--- NOTE | 2017-07-18 18:47 | PN ---
DATE: SUBJECTIVE: The patient is currently seen post return being from having a PEG tube placed. He will likely start feedings later today. He still remains on IV fluid hydration. The patient does follow commands through his family member who is translating into [place] for him. MEDICATIONS: Medication list reviewed. The patient is currently on Aricept, Brovana, D5 half-normal saline 60 mL/hour, doxycycline, albuterol, Lidoderm, Lipitor, Lopressor, Maxipime, Motrin, Norvasc, Protonix, Pulmicort, Tylenol p.r.n., and vitamin B6. OBJECTIVE: INTAKE/OUTPUT. Intake is 980, output is 700. VITAL SIGNS: Blood pressure 128/67, temperature 98.5, respiratory rate 14 with a pulse of 58. HEENT: Exam shows him to be normocephalic, atraumatic. Conjunctivae are pink. Sclerae nonicteric. NECK: Supple. No neck vein distention. CHEST: Clear to auscultation and percussion with no rales, no rhonchi or wheezing. CARDIOVASCULAR: Shows a regular rate and rhythm without murmurs, rubs, or gallops. ABDOMEN: Soft. Nondistended. Bowel sounds are decreased. Positive PEG tube. No masses. No rebound or guarding. EXTREMITIES: Show no cyanosis, clubbing, or edema. NEUROLOGIC: The patient is able to squeeze my hands. 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 LABORATORY DATA AND IMAGING: CBC: White blood cell count today 9.3 down from a high of 13.5, hemoglobin stable at 11.7, platelet count is 262,000. Chemistries show a sodium of 145, potassium 4.1, chloride is 112. CO2 was 23. BUN is 21 with a creatinine of 1.2 down from a high of 39 and 3.1. Glucose is 116. Calcium 9.2. Liver enzymes are normal. Albumin is 3.0. Microbiology: All cultures are negative. ASSESSMENT: 1. Status post acute renal failure, likely hemodynamically mediated as patient has responded nicely to IV volume hydration. 2. Borderline hypernatremia. The patient should continue to receive hypotonic IV fluid hydration until PEG tube feedings and water administration may begin. 3. Status post acute hemorrhagic cerebrovascular accident. 4. Aphasia secondary to cerebrovascular accident. 5. History of hypertension. Blood pressure controlled on present medication. 6. Possible aspiration pneumonia. The patient will complete a course of antibiotic therapy. 7. Mild dementia. The patient continues on appropriate medication per Dr. Aguilar. PLAN: 1. Until the point of time that the patient begins PEG tube feedings, the patient should continue receiving hypotonic IV fluid administration. Once PEG tube feeding starts, the patient may receive extra water through the PEG tube. 2. Continue to monitor labs over the next 1 to 2 days. I expect that his BUN and creatinine will remain in the normal range with complete correction of his electrolytes. 3. Discussed with staff Jonah Gramajo MD
--- NOTE | 2017-07-19 00:14 | CON ---
DATE: 07/18/2017 REASON FOR CONSULTATION: Left shoulder pain. HISTORY OF PRESENT ILLNESS: This is an 87-year-old gentleman with a history of dementia who was admitted for intractable vomiting and abdominal pain and also status post CVA with left-sided involvement, who complains of left shoulder pain. History is somewhat limited because of the patient's dementia, but there is no known history of recent trauma. According to the daughter, he did not fall recently, but has been complaining of left shoulder pain. PHYSICAL EXAMINATION: GENERAL: This is an elderly gentleman who is awake, but he does not answer all questions appropriately. He is holding his left upper extremity to his side. EXTREMITIES: On examination, he has no obvious swelling or deformity. No crepitus is appreciated with passive range of motion. He does have some pain with passive internal and external rotation of the shoulder. I can passively forward flexion to about 90 degrees. He has palpable distal radial and ulnar pulses. NEUROLOGIC: Limited because of his mental status; however, he does have a history of having left hemiplegia. LABORATORY DATA: X-rays of the left shoulder showed no obvious fractures or dislocations. He does have what looks like some glenohumeral degenerative changes. IMPRESSION: Left shoulder pain, left shoulder arthritis, impingement. PLAN: We discussed the treatment options with his daughter. We are going to proceed with the steroid injection. I did explained to him while this can help release some pain, it would not change any arthritis or necessarily improve his function, given that there is a neurological component secondary to his stroke. He understands this and wants to proceed with the injection. The left shoulder was prepped sterilely, and approximately 40 mg of Kenalog with 1 mL of Marcaine was injected. He tolerated the procedure well. For now, we will let him do activities as tolerated with the left upper extremity. He could follow up as an outpatient. Roberto Child MD
--- NOTE | 2017-07-19 05:25 | CP.PCM.PN ---
Subjective - Date & Time of Evaluation Date of Evaluation: 07/19/17 Time of Evaluation: 04:51 - Subjective Subjective: Patient seen at the request of his RN for some redness noted on both forearms R> L Patient is demented and has expressive aphasia,hence is unable to give any details.He is currently being treated for pneumonia. VS are stable Objective - Vital Signs/Intake and Output Vital Signs (last 24 hours): Temp Pulse Resp BP Pulse Ox 97.5 F L 73 20 164/76 H 95 07/18/17 16:00 07/19/17 04:00 07/18/17 16:00 07/19/17 02:37 07/18/17 16:00 Intake and Output: 07/18/17 07/19/17 18:59 06:59 Intake Total 0 Output Total 200 Balance -200 - Medications Medications: Current Medications Acetaminophen (Tylenol 650 Mg Supp) 650 mg RC Q6H PRN PRN Reason: Pain, Mild (1-3) Last Admin: 07/18/17 18:00 Dose: 650 mg Albuterol/Ipratropium (Duoneb 3 Mg/0.5 Mg (3 Ml) Ud) 3 ml IH TIDRESP [facility] Last Admin: 07/18/17 20:03 Dose: 3 ml Amlodipine Besylate (Norvasc) 10 mg PO DAILY [facility] Last Admin: 07/18/17 09:59 Dose: Not Given Arformoterol Tartrate (Brovana) 15 mcg IH [id number] [facility] Last Admin: 07/18/17 20:03 Dose: 15 mcg Atorvastatin Calcium (Lipitor) 40 mg PO DIN [facility] Last Admin: 07/18/17 17:10 Dose: Not Given Budesonide (Pulmicort Respules) 0.5 mg IH BIDRESP [facility] Last Admin: 07/18/17 20:03 Dose: 0.5 mg Donepezil HCl (Aricept) 5 mg PO HS [facility] Last Admin: 07/18/17 22:02 Dose: Not Given Hydralazine HCl (Apresoline) 10 mg IVP Q6 PRN PRN Reason: Systolic Blood Pressure Last Admin: 07/19/17 00:12 Dose: 10 mg Nicardipine HCl (Cardene Iv Premix) 20 mg in 200 mls @ 50 mls/hr IV .Q4H PRN; Protocol; 5 MG/HR PRN Reason: TITRATE PER MD ORDER Last Admin: 07/13/17 03:38 Dose: 2.5 mg/hr, 25 mls/hr Doxycycline Hyclate 100 mg/ (Sodium Chloride) 100 mls @ 100 mls/hr IVPB Q12 RYLIE PRN Reason: Protocol Last Admin: 07/18/17 22:29 Dose: 100 mls/hr Cefepime HCl (Maxipime 1gm) 1 gm in 100 mls @ 100 mls/hr IVPB Q24H RYLIE PRN Reason: Protocol Stop: 07/23/17 10:01 Last Admin: 07/18/17 10:07 Dose: 100 mls/hr Dextrose/Sodium Chloride (Dextrose 5%/0.45% Ns 1000 Ml) 1,000 mls @ 60 mls/hr IV .[id number] [facility] Last Admin: 07/18/17 10:09 Dose: 60 mls/hr Ibuprofen (Motrin Tab) 600 mg PO Q6H PRN PRN Reason: LEFT SHOULDER PAIN Lidocaine (Lidoderm) 1 ea TD DAILY [facility] Last Admin: 07/18/17 10:36 Dose: 1 ea Metoprolol Tartrate (Lopressor) 25 mg PO BID [facility] Last Admin: 07/18/17 17:12 Dose: Not Given Pantoprazole Sodium (Protonix Ec Tab) 40 mg PO ACB [facility] Last Admin: 07/18/17 08:27 Dose: 40 mg Pyridoxine HCl (Vitamin B6 50 Mg Tab) 50 mg PO DAILY [facility] Last Admin: 07/18/17 09:59 Dose: Not Given - Labs Labs: 07/18/17 05:30 07/18/17 05:30 PT 11.9 SECONDS (9.4-12.5) 07/09/17 20:05 INR 1.04 (0.93-1.08) 07/09/17 20:05 APTT 33.2 Seconds (25.1-36.5) 07/09/17 20:05 - Constitutional Appears: No Acute Distress - Head Exam Head Exam: ATRAUMATIC, NORMAL INSPECTION, NORMOCEPHALIC - Eye Exam Eye Exam: PERRL - ENT Exam ENT Exam: Mucous Membranes Moist - Respiratory Exam Respiratory Exam: NORMAL BREATHING PATTERN - Cardiovascular Exam Cardiovascular Exam: REGULAR RHYTHM - GI/Abdominal Exam GI & Abdominal Exam: Soft, Normal Bowel Sounds - Extremities Exam Extremities Exam: Full ROM, Normal Capillary Refill. absent: Calf Tenderness, Pedal Edema Additional comments: There are small erythematous linear,slightly warm and tender patches on both forearms(about 4" on the L side and 2" on the L side, Both radial pulses are felt well - Neurological Exam Neurological Exam: Alert (has expressive aphasia) - Skin Skin Exam: Dry, Erythema (linear areas of erythema notedon both forearms), Warm Assessment and Plan - Assessment and Plan (Free Text) Assessment: Thrombophlebitis both forearms Plan: Warm soaks to be applied locally (TID)for 2 or 3 days till redness resolves.
[2017-07-19 06:37] LABS: HEMOGLOBIN 12.8 g/dL (14.0-18.0); MEAN CELL VOLUME 85.7 fl (80.0-105.0); MEAN CORPUSCULAR HEMOGLOBIN 28.5 pg (25.0-35.0); MEAN CORPUSCULAR HGB CONC 33.2 g/dl (31.0-37.0); MEAN PLATELET VOLUME 10.2 fl (7.0-11.0); RBC 4.49 10^6/uL (3.5-6.1); RED CELL DISTRIBUTION WIDTH 15.3 % (11.5-14.5); WHITE BLOOD COUNT 10.5 10^3/ul (4.5-11.0)
[2017-07-19 07:23] LABS: ALB/GLOB RATIO 1.1 (1.1-1.8); ALBUMIN 3.5 g/dL (3.0-4.8); ALT/SGPT 35 U/L (7-56); AST/SGOT 36 U/L (17-59); BLOOD UREA NITROGEN 19 mg/dL (7-21); CALCIUM 9.7 mg/dL (8.4-10.5); GFR AFRICAN-AMERICAN > 60; GFR NON-AFRICAN AMERICAN > 60; MAGNESIUM 1.8 mg/dL (1.7-2.2)
[2017-07-19] MEDS: Albuterol-Ipratrop 3 mg / 0.5 (3 ml) UD IH SCH ×3 (07:27→20:13)
[2017-07-19] MEDS: Budesonide 0.5 mg/2 ml Inhal Susp UD IH SCH ×2 (07:27→20:13)
[2017-07-19] MEDS: Arformoterol 15 mcg/2 ml Inh Sol IH SCH ×2 (07:27→20:13)
[2017-07-19] MEDS ORDERED: Morphine 2 mg/ml ISec IVP PRN (08:30)
[2017-07-19] MEDS: Lidocaine 5% Patch TD SCH (10:39)
[2017-07-19] MEDS: Cefepime 1gm in NS 100ml 1 GM/100 ML BAG IVPB SCH (10:39)
[2017-07-19] MEDS: Pantoprazole 40 mg EC Tab PO SCH (10:42)
--- NOTE | 2017-07-19 11:31 | CP.PCM.PN ---
<Sarah Andrade - Last Filed: 07/19/17 11:32> Subjective - Date & Time of Evaluation Date of Evaluation: 07/19/17 Time of Evaluation: 10:10 - Subjective Subjective: Seen and examined at the bedside earlier today, daughters are at the bedside. Status post endoscopy with PEG insertion, patient is awake and alert denies any nausea vomiting or abdominal pain. No reports of acute overnight events. On endoscopy patient to have chronic gastritis, hiatal hernia and appearance of short segment Amado's esophagus.dietitian bolus feedings recommendation noted. Objective - Vital Signs/Intake and Output Vital Signs (last 24 hours): Temp Pulse Resp BP Pulse Ox 97.5 F L 70 20 162/79 H 96 07/19/17 08:39 07/19/17 10:38 07/19/17 08:39 07/19/17 10:41 07/19/17 08:39 Intake and Output: 07/19/17 07/19/17 06:59 18:59 Intake Total 0 0 Output Total 200 320 Balance -200 -320 - Medications Medications: Current Medications Acetaminophen (Tylenol 650 Mg Supp) 650 mg RC Q6H PRN PRN Reason: Pain, Mild (1-3) Last Admin: 07/18/17 18:00 Dose: 650 mg Albuterol/Ipratropium (Duoneb 3 Mg/0.5 Mg (3 Ml) Ud) 3 ml IH TIDRESP [facility] Last Admin: 07/19/17 07:27 Dose: 3 ml Amlodipine Besylate (Norvasc) 10 mg PO DAILY [facility] Last Admin: 07/19/17 10:41 Dose: 10 mg Arformoterol Tartrate (Brovana) 15 mcg IH [id number] [facility] Last Admin: 07/19/17 07:27 Dose: 15 mcg Atorvastatin Calcium (Lipitor) 40 mg PO DIN [facility] Last Admin: 07/18/17 17:10 Dose: Not Given Budesonide (Pulmicort Respules) 0.5 mg IH BIDRESP [facility] Last Admin: 07/19/17 07:27 Dose: 0.5 mg Donepezil HCl (Aricept) 5 mg PO HS [facility] Last Admin: 07/18/17 22:02 Dose: Not Given Hydralazine HCl (Apresoline) 10 mg PO QID PRN PRN Reason: for sbp>170 Nicardipine HCl (Cardene Iv Premix) 20 mg in 200 mls @ 50 mls/hr IV .Q4H PRN; Protocol; 5 MG/HR PRN Reason: TITRATE PER MD ORDER Last Admin: 07/13/17 03:38 Dose: 2.5 mg/hr, 25 mls/hr Doxycycline Hyclate 100 mg/ (Sodium Chloride) 100 mls @ 100 mls/hr IVPB Q12 RYLIE PRN Reason: Protocol Last Admin: 07/19/17 10:42 Dose: 100 mls/hr Cefepime HCl (Maxipime 1gm) 1 gm in 100 mls @ 100 mls/hr IVPB Q24H RYLIE PRN Reason: Protocol Stop: 07/23/17 10:01 Last Admin: 07/19/17 10:39 Dose: 100 mls/hr Ibuprofen (Motrin Tab) 600 mg PO Q6H PRN PRN Reason: LEFT SHOULDER PAIN Lidocaine (Lidoderm) 1 ea TD DAILY [facility] Last Admin: 07/19/17 10:39 Dose: 1 ea Losartan Potassium (Cozaar) 100 mg PO DAILY [facility] Last Admin: 07/19/17 10:39 Dose: 100 mg Metoprolol Tartrate (Lopressor) 25 mg PO BID [facility] Last Admin: 07/19/17 10:39 Dose: 25 mg Morphine Sulfate (Morphine) 1 mg IVP Q8H PRN PRN Reason: Pain, Mild (1-3) Last Admin: 07/19/17 10:40 Dose: 1 mg Pantoprazole Sodium (Protonix Ec Tab) 40 mg PO ACB [facility] Last Admin: 07/19/17 10:42 Dose: Not Given Pyridoxine HCl (Vitamin B6 50 Mg Tab) 50 mg PO DAILY [facility] Last Admin: 07/19/17 10:42 Dose: 50 mg - Labs Labs: 07/19/17 06:10 07/19/17 06:10 PT 11.9 SECONDS (9.4-12.5) 07/09/17 20:05 INR 1.04 (0.93-1.08) 07/09/17 20:05 APTT 33.2 Seconds (25.1-36.5) 07/09/17 20:05 - Constitutional Appears: No Acute Distress - Eye Exam Eye Exam: Normal appearance. absent: Scleral icterus - ENT Exam ENT Exam: Mucous Membranes Moist - Respiratory Exam Respiratory Exam: NORMAL BREATHING PATTERN. absent: Respiratory Distress - Cardiovascular Exam Cardiovascular Exam: +S1, +S2 - GI/Abdominal Exam GI & Abdominal Exam: Soft, Normal Bowel Sounds. absent: Guarding, Tenderness, Organomegaly, Rebound Additional comments: positive PEG tube, insertion site is dry and intact old blood noted, no erythema or tenderness at PEG site. PEG tube is movable able, bumper adjusted level 6, patient has abdominal binder - Extremities Exam Extremities Exam: absent: Calf Tenderness, Pedal Edema - Neurological Exam Neurological Exam: Alert, Awake, Oriented x3 - Skin Skin Exam: Dry, Warm Assessment and Plan - Assessment and Plan (Free Text) Assessment: Assessment: Oropharyngeal dysphagia, status post endoscopy and PEG, found to have chronic gastritis and appearance of short segment Amado's esophagus and hiatal hernia New Onset 9x5mm Acute Hemorrahage Left Basil Ganglia History of dementia H/O TIA COPD HTN Lung Infiltrate Cholelithiasis on ct scan PLAN: NPO Continue Protonix 40 daily On IV antibiotics Monitor H&H neuro FU discuss w/ nursing at bedside and family regarding bolus feedings, dietitian recommendations noted. Spoke with GARLAND Abbott regarding start bolus feeding slowly, start with 3 cans today check residual and if patient tolerates increase by 1 can a day, continue aspiration precautions Seen and discussed with Dr. Valerio. <Seth Valerio V - Last Filed: 07/20/17 00:05> Objective - Vital Signs/Intake and Output Vital Signs (last 24 hours): Temp Pulse Resp BP Pulse Ox 97.9 F 67 19 131/62 95 07/19/17 16:00 07/19/17 18:13 07/19/17 16:00 07/19/17 18:13 07/19/17 16:00 Intake and Output: 07/19/17 07/20/17 18:59 06:59 Intake Total 0 Output Total 320 Balance -320 - Labs Labs: 07/19/17 06:10 07/19/17 06:10 PT 11.9 SECONDS (9.4-12.5) 07/09/17 20:05 INR 1.04 (0.93-1.08) 07/09/17 20:05 APTT 33.2 Seconds (25.1-36.5) 07/09/17 20:05 Attending/Attestation - Attestation I have personally seen and examined this patient.: Yes I have fully participated in the care of the patient.: Yes I have reviewed all pertinent clinical information, including history, physical exam and plan: Yes Notes (Text): This is an addendum to GI progress report dictated by Sarah Andrade APN.The patient was seen and examined earlier. Medical records, lab studies, imagings were reviewed. Last 24 hours events reviewed. Agreed with the above treatment plan as outlined in Sarah Andrade APN's notes the with the addition of the following discussed with the family who were at bedside A PEG tube length was suggested slightly has it was too tight to marked level was set at 5 Continue the antibiotic therapy as per id 07/20/17
--- NOTE | 2017-07-19 12:14 | CP.PCM.PN ---
Subjective - Date & Time of Evaluation Date of Evaluation: 07/19/17 Time of Evaluation: 10:40 - Subjective Subjective: Has IV rader on the arms, no fevers overnight. Had PEG tube placed yesterday. Objective - Vital Signs/Intake and Output Vital Signs (last 24 hours): Temp Pulse Resp BP Pulse Ox 97.5 F L 67 20 170/76 H 96 07/19/17 08:39 07/19/17 08:39 07/19/17 08:39 07/19/17 08:39 07/19/17 08:39 Intake and Output: 07/19/17 07/19/17 06:59 18:59 Intake Total 0 0 Output Total 200 320 Balance -200 -320 - Medications Medications: Current Medications Acetaminophen (Tylenol 650 Mg Supp) 650 mg RC Q6H PRN PRN Reason: Pain, Mild (1-3) Last Admin: 07/18/17 18:00 Dose: 650 mg Albuterol/Ipratropium (Duoneb 3 Mg/0.5 Mg (3 Ml) Ud) 3 ml IH TIDRESP [facility] Last Admin: 07/19/17 07:27 Dose: 3 ml Amlodipine Besylate (Norvasc) 10 mg PO DAILY [facility] Last Admin: 07/18/17 09:59 Dose: Not Given Arformoterol Tartrate (Brovana) 15 mcg IH [id number] [facility] Last Admin: 07/19/17 07:27 Dose: 15 mcg Atorvastatin Calcium (Lipitor) 40 mg PO DIN [facility] Last Admin: 07/18/17 17:10 Dose: Not Given Budesonide (Pulmicort Respules) 0.5 mg IH BIDRESP [facility] Last Admin: 07/19/17 07:27 Dose: 0.5 mg Donepezil HCl (Aricept) 5 mg PO HS [facility] Last Admin: 07/18/17 22:02 Dose: Not Given Hydralazine HCl (Apresoline) 10 mg IVP Q6 PRN PRN Reason: Systolic Blood Pressure Last Admin: 07/19/17 08:14 Dose: 10 mg Nicardipine HCl (Cardene Iv Premix) 20 mg in 200 mls @ 50 mls/hr IV .Q4H PRN; Protocol; 5 MG/HR PRN Reason: TITRATE PER MD ORDER Last Admin: 07/13/17 03:38 Dose: 2.5 mg/hr, 25 mls/hr Doxycycline Hyclate 100 mg/ (Sodium Chloride) 100 mls @ 100 mls/hr IVPB Q12 RYLIE PRN Reason: Protocol Last Admin: 07/18/17 22:29 Dose: 100 mls/hr Cefepime HCl (Maxipime 1gm) 1 gm in 100 mls @ 100 mls/hr IVPB Q24H RYLIE PRN Reason: Protocol Stop: 07/23/17 10:01 Last Admin: 07/18/17 10:07 Dose: 100 mls/hr Ibuprofen (Motrin Tab) 600 mg PO Q6H PRN PRN Reason: LEFT SHOULDER PAIN Lidocaine (Lidoderm) 1 ea TD DAILY [facility] Last Admin: 07/18/17 10:36 Dose: 1 ea Metoprolol Tartrate (Lopressor) 25 mg PO BID [facility] Last Admin: 07/18/17 17:12 Dose: Not Given Morphine Sulfate (Morphine) 1 mg IVP Q8H PRN PRN Reason: Pain, Mild (1-3) Pantoprazole Sodium (Protonix Ec Tab) 40 mg PO ACB [facility] Last Admin: 07/18/17 08:27 Dose: 40 mg Pyridoxine HCl (Vitamin B6 50 Mg Tab) 50 mg PO DAILY [facility] Last Admin: 07/18/17 09:59 Dose: Not Given - Labs Labs: 07/19/17 06:10 07/19/17 06:10 PT 11.9 SECONDS (9.4-12.5) 07/09/17 20:05 INR 1.04 (0.93-1.08) 07/09/17 20:05 APTT 33.2 Seconds (25.1-36.5) 07/09/17 20:05 - Constitutional Appears: Non-toxic, Chronically Ill - Head Exam Head Exam: NORMAL INSPECTION - Respiratory Exam Respiratory Exam: Decreased Breath Sounds - Cardiovascular Exam Cardiovascular Exam: +S1, +S2 - GI/Abdominal Exam GI & Abdominal Exam: Soft. absent: Tenderness Additional comments: PEG tube in place Assessment and Plan - Assessment and Plan (Free Text) Plan: Assessment severe sepsis with acute renal failure due to HCAP, clinically improving TIA COPD dementia HTN osteoarthritis chronic CHF cataracts Plan Continue Cefepime and Doxycycline day 5 to complete 4-7 days of therapy - can switch to PO antibiotics once ready for discharge (doxycycline and augmentin)
--- NOTE | 2017-07-19 14:05 | PN ---
DATE: 07/19/2017 REFERRING PHYSICIAN: Dr. Cody Aguilar. REASON FOR CONSULTATION AND FOLLOWUP: PVC, cardiac arrhythmia evaluation, CVA, possible intracerebral bleed, status post PEG placement. SUBJECTIVE: The patient denies any chest pain, shortness of breath, or any palpitations. Daughter and other family members at the bedside. OBJECTIVE: GENERAL: Not in apparent distress. VITAL SIGNS: Temperature afebrile, heart rate 86, blood pressure 170/76. HEENT: PERRLA. Extraocular muscles intact. NECK: Supple. No carotid bruit or thyromegaly. CHEST: Clear to auscultation. HEART: S1 and S2 regular. ABDOMEN: Soft. EXTREMITIES: Clubbing and cyanosis negative. LABORATORY DATA: Blood workup as follows: WBC 10.5, hemoglobin 12.5, hematocrit 38.5, and platelet count 279. Chemistry shows sodium 144, potassium , chloride 109, carbon dioxide 20, anion gap of 70. BUN 9, creatinine 0.9. IMPRESSION: Cerebrovascular accident; intracerebral bleed; left shoulder pain; arthritis; status post intraarticular injection; status post percutaneous endoscopic gastrostomy tube placement; hypertension; left shoulder pain,musculoskeletal secondary to arthritis; altered mental status, improving; premature ventricular contractions, resolved; cerebrovascular accident; intracerebral bleed as mentioned above. RECOMMENDATION: Continue feeding, resume antihypertensive medications because of the G-tube. Continue metoprolol 25. We will start losartan 100 from . Because of uncontrolled hypertension, we will change the p.r.n. hydralazine p.o. We will follow with you. Thank you Dr. Aguilar, for providing us the opportunity in taking care of patient, Christy Blancas. Dl Vázquez MD
[2017-07-19 16:38] VITALS: BP 131/62; PULSE 67; RESP 19; TEMP 97.9; O2SAT 95
--- NOTE | 2017-07-19 16:39 | PN ---
DATE: 07/19/2017 SUBJECTIVE: The patient is seen lying in bed. He is awake. He is alert. He is able to verbalize today. He denies any pain. Denies any shortness of breath. PHYSICAL EXAMINATION: GENERAL: Elderly male, sitting in bed. VITAL SIGNS: Blood pressure 162/79, heart rate 70, respiratory rate 20, temperature 97.5. HEENT: Normocephalic, atraumatic. NECK: Supple, no JVD. LUNGS: Bilateral equal air entry, no rales. CARDIAC: S1 and S2, regular rate and rhythm, no murmur, no rub. ABDOMEN: Soft, nondistended, nontender. Bowel sounds present. EXTREMITIES: No lower extremity edema. LABORATORY DATA: WBC 10.5, hemoglobin 12.8, hematocrit 39, platelets 279. Sodium 144, potassium 4.3, chloride 109, CO2 of 23, BUN 19, creatinine 0.9, glucose 128, calcium 9.7, phosphorus 2.3, magnesium 1.8, albumin 3.5. Intake and output not charted. CURRENT MEDICATIONS: Brovana, Cozaar 100, doxycycline 100 q. 12, DuoNeb, Lipitor, Lopressor, morphine, amlodipine 10, Protonix, Tylenol. ASSESSMENT: 1. Resolved acute kidney injury. 2. Acute cerebrovascular accident, aphasia, improving. 3. Hypertension. 4. Dysphagia. 5. Hypernatremia. 6. Possible aspiration pneumonia. 7. Dementia. PLAN: 1. Continue hypotonic fluids. 2. Monitor labs every 2-3 days. 3. Neurology followup. 4. Decision to be made regarding PEG. Jen Merritt MD
--- NOTE | 2017-07-20 15:36 | PN ---
DATE: 07/18/2017 SUBJECTIVE: An 87-year-old male. The patient had a PEG tube procedure, is doing better. No feeding is started yet. He has no chest pain, no shortness of breath, seems comfortable. SCDs on both lower extremities. He has dysphagia due to recent stroke. For that reason, a PEG tube was inserted. There were no complications. PHYSICAL EXAMINATION: VITAL SIGNS: On 07/18/2017, his vital signs are as follows; temperature is 98.5, heart rate is 58, blood pressure 183/69, respirations 14, and saturation 99% on 3 liters. HEAD AND NECK: Normal. No JVD. No thyromegaly. CHEST: Clear. CARDIAC: First sound and second sound normal. ABDOMEN: Soft. PEG tube site seems clean. No bleeding. EXTREMITIES: No edema. NEUROLOGIC: Normal except difficulty swallowing. The patient responds properly. Complains only of left shoulder. IMPRESSION: 1. Left shoulder pain, osteoarthritis, bursitis. Given steroids and antibiotics, seems to be doing well. 2. Hypertension. Did not get his medications. We will give him hydralazine 10 mg intravenously. We will keep monitoring his blood pressure. We will resume his p.o. medications via pecutaneous endoscopic gastrostomy tube. If blood pressure is very high and even high at 204/85, intravenous hydralazine will be given. The patient's blood pressure on followup is better, 128/67. 3. Acute cerebrovascular accident, hemorrhagic, hold off on aspirin and nonsteroidals. 4. dysphagia only, which may get better later. 5. Dementia. Continue Aricept. PLAN: 1. Continue current therapy. We will follow up clinically. Current medications: Avodart, hydralazine, Norvasc 10, vitamin B6, Protonix 40, Lopressor 25 b.i.d., Aricept 5 mg, Lipitor 40, Tylenol p.r.n., Lidoderm patch to left shoulder. 2. Status post PEG tube feeding. We will start feeding if okay with the GI, seems doing well. Cody Aguilar MD [facility] # [id number]
== END 2017-07-19 20:33 | disposition home health service (06) | DRG 177 ==
LOC: ED 18:46 → ERH 07-10 00:39 → 5RNO 07-10 02:28 → OBSVTOIN 07-11 13:49 → CCU 07-12 12:25 → 3RNO 07-14 12:36
PROVIDERS: ADMIT Internal Medicine; ATTEND Internal Medicine
PROC: 3E0F7GC Introduction of Other Therapeutic Substance into Respiratory Tract, Via Natural or Artificial Opening (ICD-10-PCS; 2017-07-10)
PROC: 3E0U33Z Introduction of Anti-inflammatory into Joints, Percutaneous Approach (ICD-10-PCS; 2017-07-18)
PROC: 3E0U3BZ Introduction of Anesthetic Agent into Joints, Percutaneous Approach (ICD-10-PCS; 2017-07-18)
PROC: 0DH63UZ Insertion of Feeding Device into Stomach, Percutaneous Approach (ICD-10-PCS; principal; 2017-07-18 11:45)
PROC: 3E0G76Z Introduction of Nutritional Substance into Upper GI, Via Natural or Artificial Opening (ICD-10-PCS; 2017-07-19)
DX: J69.0 Pneumonitis due to inhalation of food and vomit (principal); I61.0 Nontraumatic intracerebral hemorrhage in hemisphere, subcortical; I63.9 Cerebral infarction, unspecified; R65.20 Severe sepsis without septic shock; N17.9 Acute kidney failure, unspecified; R13.12 Dysphagia, oropharyngeal phase; I13.0 Hypertensive heart and chronic kidney disease with heart failure and stage 1 through stage 4 chronic kidney disease, or unspecified chronic kidney disease; I50.9 Heart failure, unspecified; I08.3 Combined rheumatic disorders of mitral, aortic and tricuspid valves; E87.0 Hyperosmolality and hypernatremia; A41.9 Sepsis, unspecified organism; F01.51 Vascular dementia, unspecified severity, with behavioral disturbance; J44.1 Chronic obstructive pulmonary disease with (acute) exacerbation; R47.01 Aphasia; N18.9 Chronic kidney disease, unspecified; I25.10 Atherosclerotic heart disease of native coronary artery without angina pectoris; E78.5 Hyperlipidemia, unspecified; N40.0 Benign prostatic hyperplasia without lower urinary tract symptoms; D64.9 Anemia, unspecified; K80.20 Calculus of gallbladder without cholecystitis without obstruction; K52.9 Noninfective gastroenteritis and colitis, unspecified; I16.0 Hypertensive urgency; R29.810 Facial weakness; I65.23 Occlusion and stenosis of bilateral carotid arteries; M19.011 Primary osteoarthritis, right shoulder; M19.012 Primary osteoarthritis, left shoulder; E78.00 Pure hypercholesterolemia, unspecified; R00.1 Bradycardia, unspecified; T44.7X5A Adverse effect of beta-adrenoreceptor antagonists, initial encounter; Y95 Nosocomial condition; I80.9 Phlebitis and thrombophlebitis of unspecified site; K44.9 Diaphragmatic hernia without obstruction or gangrene; K22.70 Barrett's esophagus without dysplasia; K29.50 Unspecified chronic gastritis without bleeding; Z87.891 Personal history of nicotine dependence

== ENCOUNTER 2017-08-04 17:43 | Inpatient (IN) | payer MEDICARE, MEDICAID ==
--- NOTE | 2017-08-04 17:53 | EDPD ---
HPI Stroke - General Time Seen by Provider: 08/04/17 17:47 Historian: Family, EMS - History of Present Illness Narrative History of Present Illness (Free Text): 08/04/17 18:39 87 year old male, with past medical history of CVA, CHF, COPD, dementia, hypertension, TIA, osteoarthritis, and pneumonia, presents to the Emergency department via EMS for symptoms of CVA since 2 hours prior to arrival. As per EMS, family found patient with decreased responsiveness and preferential right sided gaze, for which 911 was immediately called. Family informs patient was recently discharged s/p CVA two weeks ago. as per family, patient is usually awake and talking but non-ambulatory and is fully dependent on family members. Patient is currently unable to express himself. HPI and ROS limited. Onset:: Hours Timing: Currently Symptomatic Context: Home Associated Symptoms: Visual rTPA Inclusion/Exclusion - Refusal of Treatment Patient Refused Treatment: No - Inclusion Criteria for Altepase Patient is 18 years or Older: Yes The Clinical Diagnosis of Ischemic Stroke That is Causing a Potentially Disabling Neurological Deficit: No Time of Onset is Well Established to be Less Than 270 Minute Before Treatment Would Begin: No Risk/Benefit Discussed With Patient/Family Member Present: No - Exclusion Criteria for Altepase Uncontrolled Hypertension at Time of Treatment (Systolic BP above 185 or Diastolic BP above 110 mmHg): No Active Internal Bleeding: No Known Bleeding Diathesis Including but Not Limited to: Platelets Below 100,000/ mm,PTT Above 40 sec After Heparin Use, Current Use of Oral Anitcoagulant With INR Greater Than 1.7 or PT Greater Than 15 secs: No Evidence of an Intracranial Hemorrhage: No Evidence of Major Acute Infarct With Signs Greater Than 1/3 MCA Territory: No Suspicion of Subarachnoid Hemorrhage on Pretreatment Evaluation Even if CT Head Negative For Hemorrhage: No Past Medical History - Provider Review Nursing Documentation Reviewed: Yes - Travel History Have you recently traveled outside [place] w/in the past 3 mons?: No - Past History Past History: Non-Contributing - Infectious Disease Hx of Infectious Diseases: None - Tetanus Immunization Tetanus Immunization: Unknown - Cardiac Hx Hypertension: Yes - Pulmonary Hx Chronic Obstructive Pulmonary Disease (COPD): Yes - Neurological HX Cerebrovascular Accident: Yes (TIA) - HEENT Hx HEENT Disorder: Yes (WEARS RX GLASSES) Hx Cataracts: Yes - Renal Hx Renal Disorder: Yes - Endocrine/Metabolic Hx Endocrine Disorders: No - Hematological/Oncological Hx Blood Disorders: No - Integumentary Hx Dermatological Disorder: Yes (MULTIPLE ROUND OLD AGE SPOTS TO FACE,ARMS) - Musculoskeletal/Rheumatological Hx Arthritis: Yes - Gastrointestinal Hx Gastrointestinal Disorders: No - Genitourinary/Gynecological Hx Genitourinary Disorders: Yes - Psychiatric Hx Psychophysiologic Disorder: No - Past Surgical History Past Surgical History: No Previous - Anesthesia Hx Anesthesia: No - Suicidal Assessment Feels Threatened In Home Enviroment: No Family/Social History - Family/Social History Family History: Non-Contributory Allergies/Home Meds Allergies/Adverse Reactions: Allergies No Known Allergies Allergy (Verified 06/08/17 07:28) Home Medications: Home Meds Medication Instructions Recorded Confirmed Donepezil [Aricept] 5 mg PO DAILY 07/13/17 08/04/17 Dutasteride [Avodart] 0.5 mg PO DAILY 07/13/17 08/04/17 Ra Col-Rite 100 mg PO BID 07/13/17 08/04/17 hydrALAZINE [Apresoline] 10 mg PO QID 07/13/17 08/04/17 Review of Systems - Physician Review All systems were reviewed & negative as marked: Yes - Review of Systems Systems not reviewed;Unavailable: Other (patient is nonverbal and unable to express himself.) Eyes: Other (preferential right sided gaze) Respiratory: Normal Cardiovascular: Normal Gastrointestinal: Other (feeding received through PEG tube.) Genitourinary Male: Other (Incontinent.) Musculoskeletal: Other (nonambulatory.) ED Stroke Physical Exam Vital Signs Reviewed: Yes Temperature: Febrile Blood Pressure: Hypotensive Pulse: Regular Respiratory Rate: Normal Appearance: Positive for: Other (nonverbal) Pain Distress: None Mental Status: Positive for: other (Unable to express himself; nonverbal.) Finger Stick Blood Glucose: 124 - Systems Exam Head: Present: Atraumatic, Normocephalic Pupils: Present: PERRL Extroacular Muscles: Present: EOMI Mouth: Present: Moist Mucous Membranes, Dry (moderate) Neck: Present: Normal Range of Motion Respiratory/Chest: Present: Clear to Auscultation, Good Air Exchange. No: Respiratory Distress, Accessory Muscle Use, Wheezes, Rales, Rhonchi Cardiovascular: Present: Regular Rate and Rhythm, Normal S1, S2. No: Murmurs Abdomen: Present: Normal Bowel Sounds, Other (PEG tube in place.). No: Tenderness, Distention, Peritoneal Signs Back: Present: Normal Inspection Upper Extremity: Present: Normal Inspection. No: Cyanosis, Edema Lower Extremity: Present: Normal Inspection, Other (decreased muscle mass. No edema. No sign of soft tissue infection.). No: Edema Neurologic: No: Speech Normal (nonverbal) Skin: Present: Warm, Dry, Normal Color. No: Rashes Lymphatic: Present: OX3, NI, NC Psychiatric: Present: Other (unable to express, nonverbal) Medical Decision Making ED Course and Treatment: 08/04/17 17:59 Impression: 87 year old male presents to the Emergency department for possible CVA. Differential diagnosis: Sepsis; bacteremia from urinary source. Plan: -- Blood type and screen -- CT of Head/neck -- CT of Head -- EKG -- Labs -- Chest X-ray -- IV Fluids -- Reassess and disposition Progress Notes: 08/04/17 17:43 Code stroke activated. 08/04/17 17:49 Discussed case with neurologist sales consulting director, Dr. Simental. Waiting on CT results. 08/04/17 18:12 CT of head reviewed by radiologist, shows no evidence of acute intracranial hemorrhage. No significant interval change nited since the previous exam. 08/04/17 18:30 Code stroke cancelled upon discovery of febrile condition of patient. Evaluation for possible sepsis will be performed. 08/04/17 19:00 PROCEDURE: CENTRAL LINE PLACEMENT Performed by the emergency provider Time: 19:00 Consent: It was precluded by the urgency of the procedure and the patient condition. Timeout: A timeout to verify the correct patient, procedure, and site was performed. Indication: Sepsis. Anesthesia: Local anesthesia: 5mL of lidocaine 1%. Skin Preparation: Hand hygiene performed prior to central venous catheter insertion. Sterile field, sterile drape, sterile technique, and cap and gown were used. The area was cleansed with 2% Chlorhexidine. Patient position: reverse trendelenberg. Location: right subclavian Ultrasound guidance: NO Technique: The landmarks for the line placement were identified. The vessel was cannulated and a non-tunneled 7.0 Fr triple lumen was placed using the Seldinger technique. Successful placement: YES . Line sutured with silk and appropriate dressing applied. Assessment: Good patency but no blood return through all three lumens. The ports were appropriately flushed. See post procedure X-Ray interpretation. Post-procedure: Patient tolerated the procedure well with no immediate complications. - Critical Care Critical Care Minutes: 60 minutes - Scribe Statement The provider has reviewed the documentation as recorded by the Scribe Carly Collins. All medical record entries made by the Scribe were at my direction and personally dictated by me. I have reviewed the chart and agree that the record accurately reflects my personal performance of the history, physical exam, medical decision making, and the department course for this patient. I have also personally directed, reviewed, and agree with the discharge instructions and disposition. NIHSS Scale ([place]) Time Performed: 19:30 - How Severe is the Stoke Baseline LOC to Questions: 0=Both comments correct LOC to commands: 0=Obeys both correctly Best Gaze: 0=Normal Visual: 0=No visual loss Facial: 0=Normal Motor Arm - Left: 0=No drift Motor Arm - Right: 0=No drift Motor Leg - Left: 0=No drift Motor Leg - Right: 0=No drift Limb Ataxia: 0=Absent Sensory: 0=Normal Best Language: 0=No aphasia Dysarthia: 0=Normal articulation Extinction & Inattention (Neglect): 0=Normal, no object Disposition/Present on Arrival - Present on Arrival Any Indicators Present on Arrival: No History of DVT/PE: No History of Uncontrolled Diabetes: No Urinary Catheter: No History Surgical Site Infection Following: None - Disposition Have Diagnosis and Disposition been Completed?: Yes Diagnosis: UTI (urinary tract infection), Bacteremia Disposition: HOSPITALIZED Disposition Time: 21:35 Patient Plan: Admission Patient Problems: Current Active Problems Problem Status Onset Bacteremia Acute UTI (urinary tract infection) Acute Condition: IMPROVED
[2017-08-04 17:55] VITALS: BMI 20.9
[2017-08-04] MEDS ORDERED: Sodium Chloride 0.9% 1,000 ML IV SCH ×2 (18:00→18:13)
--- NOTE | 2017-08-04 18:08 | CT ---
PROCEDURE: CT HEAD WITHOUT CONTRAST. HISTORY: Code Stroke COMPARISON: Comparison is made with the previous study dated 07/13/2017 TECHNIQUE: Axial computed tomography images were obtained through the head/brain without intravenous contrast. Radiation dose: Total exam DLP = 893.44 mGy-cm. This CT exam was performed using one or more of the following dose reduction techniques: Automated exposure control, adjustment of the mA and/or kV according to patient size, and/or use of iterative reconstruction technique. FINDINGS: HEMORRHAGE: No intracranial hemorrhage. BRAIN: No mass effect or edema. Again seen are foci of encephalomalacia in the bilateral basal ganglia and right rivera radiata suggestive of old infarctions. Mild atrophy and moderate white matter changes are again noted. VENTRICLES: Unremarkable. No hydrocephalus. CALVARIUM: Unremarkable. PARANASAL SINUSES: Mild maxillary sinus mucosal thickening. MASTOID AIR CELLS: Unremarkable as visualized. No inflammatory changes. OTHER FINDINGS: None. IMPRESSION: No evidence of acute intracranial hemorrhage. No significant interval change noted since the previous exam.
[2017-08-04] MEDS ORDERED: Sodium Chloride 0.9% 1,500 ML IV STA (18:12)
[2017-08-04 18:51] LABS: BASO # 0.04 K/mm3 (0.0-2.0); BASO % 0.2 % (0.0-3.0); EOS % 0.1 % (1.5-5.0); GRAN # 21.51 (1.4-6.5); GRAN % 82.2 % (50.0-68.0); HEMOGLOBIN 13.1 g/dL (14.0-18.0); LYMPH # 2.2 (1.2-3.4); LYMPH % 8.3 % (22.0-35.0); MEAN CELL VOLUME 85.2 fl (80.0-105.0); MEAN CORPUSCULAR HEMOGLOBIN 28.9 pg (25.0-35.0); MEAN CORPUSCULAR HGB CONC 33.9 g/dl (31.0-37.0); MONO # 2.4 (0.1-0.6); MONO % 9.2 % (1.0-6.0); RBC 4.54 10^6/uL (3.5-6.1); RED CELL DISTRIBUTION WIDTH 15.3 % (11.5-14.5)
[2017-08-04 18:53] LABS: WHITE BLOOD COUNT 26.2 10^3/ul (4.5-11.0)
[2017-08-04 19:05] LABS: VENOUS BLOOD GAS BASE EXCESS 2.2 mmol/L (0.0-2.0); VENOUS BLOOD GAS PO2 31 mm/Hg (30-55); VENOUS BLOOD PH 7.39 (7.32-7.43)
[2017-08-04] MEDS ORDERED: cefTRIAXone 1 gm 1 GM/100 ML BAG IVPB STA (19:12)
[2017-08-04] MEDS ORDERED: Piperacill/Tazo 4.5gm in NS 4.5 GM/100 ML BAG IVPB STA (19:15)
[2017-08-04] MEDS ORDERED: Vancomycin 1gm in NS 250ml 1 GM/250 ML BAG IVPB STA (19:15)
[2017-08-04] MEDS ORDERED: Sod Polystyrene Sulf 15 gm/60 ml Susp PEG STA (20:27)
[2017-08-04 21:05] LABS: URINE BILIRUBIN NEGATIVE (NEGATIVE); URINE BLOOD MODERATE (NEGATIVE); URINE GLUCOSE (UA) NEGATIVE (NEGATIVE); URINE LEUKOCYTE ESTERASE SMALL Leu/uL (NEGATIVE); URINE NITRATE POSITIVE (NEGATIVE); URINE PROTEIN TRACE mg/dL (<30 mg/dL); URINE UROBILINOGEN 0.2 E.U./dL (<1 E.U./dL)
[2017-08-04 21:12] LABS: URINE APPEARANCE SL CLOUDY (CLEAR); URINE COLOR YELLOW (YELLOW)
[2017-08-04 21:13] LABS: INR 1.13 (0.93-1.08); PARTIAL THROMBOPLASTIN TIME 32.2 Seconds (25.1-36.5); PROTHROMBIN TIME 12.9 SECONDS (9.4-12.5)
[2017-08-04 21:18] LABS: URINE BACTERIA MANY (NEG)
[2017-08-04 21:21] LABS: LDL CHOLESTEROL 62 mg/dL (0-129)
[2017-08-04 21:23] LABS: ALB/GLOB RATIO 1.1 (1.1-1.8); ALT/SGPT 58 U/L (7-56); AST/SGOT 36 U/L (17-59); BLOOD UREA NITROGEN 24 mg/dL (7-21); CALCIUM 9.2 mg/dL (8.4-10.5); GFR AFRICAN-AMERICAN > 60; GFR NON-AFRICAN AMERICAN 57; HDL CHOLESTEROL 49 mg/dL (29-60)
[2017-08-04 21:52] LABS: TROPONIN I 0.01 ng/mL
--- NOTE | 2017-08-04 22:15 | CARD ---
APPROVED REPORT EKG Measurement Heart [id number] <Conclusion> Sinus rhythm with short TN with premature atrial complexes Incomplete right bundle branch block Borderline ECG
[2017-08-04 23:38] LABS: VENOUS BLOOD GAS BASE EXCESS -1.5 mmol/L (0.0-2.0); VENOUS BLOOD GAS PO2 262 mm/Hg (30-55); VENOUS BLOOD PH 7.47 (7.32-7.43)
--- NOTE | 2017-08-05 01:16 | CP.PCM.PN ---
Subjective - Date & Time of Evaluation Date of Evaluation: 08/05/17 Time of Evaluation: 01:12 - Subjective Subjective: Patient was seen at bedside. Nurse had called me little earlier with blood pressure of 77/48 HR 92/min and temp 103.2*F. Patient is lethargic, opens eyes on command and moves neck. BP is 109/54 now. I hear some audible wheezing in upper respiratory tract. Medical record was reviewed. This 87 year old male was admitted with right sided gaze , decreased responsiveness. Has PMH ,Dementia,Hx CVA,Hx OA,COPD,Hx ARF,Hypertension,Hx PNA,Hx cataract. Objective - Vital Signs/Intake and Output Vital Signs (last 24 hours): Temp Pulse Resp BP Pulse Ox 103.2 F H 100 H 18 77/48 L 92 L 08/05/17 00:14 08/05/17 00:14 08/05/17 00:14 08/05/17 00:14 08/05/17 00:14 - Medications Medications: Current Medications Acetaminophen (Tylenol 325mg Tab) 650 mg PO Q4H PRN PRN Reason: Fever >100.4 F Sodium Chloride (Sodium Chloride 0.9%) 1,000 mls @ 200 mls/hr IV .Q5H RYLIE Last Admin: 08/04/17 22:26 Dose: 200 mls/hr - Labs Labs: 3 Temp 103.2 F H 08/05/17 00:14 Pulse 100 H 08/05/17 00:14 Resp 18 08/05/17 00:14 BP 77/48 L 08/05/17 00:14 Pulse Ox 92 L 08/05/17 00:14 - Constitutional Appears: Other (Lethargic.) - Head Exam Head Exam: ATRAUMATIC, NORMAL INSPECTION, NORMOCEPHALIC - Eye Exam Eye Exam: Normal appearance - ENT Exam ENT Exam: Mucous Membranes Dry, Normal External Ear Exam - Neck Exam Neck Exam: Normal Inspection - Respiratory Exam Respiratory Exam: NORMAL BREATHING PATTERN - Cardiovascular Exam Cardiovascular Exam: absent: JVD - GI/Abdominal Exam GI & Abdominal Exam: absent: Distended - Rectal Exam Rectal Exam: Deferred - Exam Additional comments: Deferred. - Extremities Exam Extremities Exam: Normal Inspection - Back Exam Back Exam: NORMAL INSPECTION - Neurological Exam Neurological Exam: Altered - Psychiatric Exam Psychiatric exam: Depressed - Skin Skin Exam: Dry Additional comments: turgor decreased. Assessment and Plan - Assessment and Plan (Free Text) Assessment: Hypotension. Sepsis. Dehydration. TIA? UTI. Leukocytosis Borderlinen anemia. Granulocytosis. Elevatged ALT. Dementia. Hx CVA. Hx OA. COPD. Hx ARF. Hypertension. Hx PNA. Hx cataract. Plan: Normal saline bolus of 500 was given. Will decrease IV fluid to 60 CC per hour. Continue present plan of management . Nasal oropharyngeal suction prn. Latest BP 115/56.
[2017-08-05] MEDS ORDERED: Sodium Chloride 0.9% 1,000 ML IV SCH (02:00)
[2017-08-05 03:49] LABS: VENOUS BLOOD GAS BASE EXCESS -2.6 mmol/L (0.0-2.0); VENOUS BLOOD GAS PO2 52 mm/Hg (30-55); VENOUS BLOOD PH 7.39 (7.32-7.43)
[2017-08-05 08:23] LABS: VENOUS BLOOD GAS BASE EXCESS -2.9 mmol/L (0.0-2.0); VENOUS BLOOD GAS PO2 56 mm/Hg (30-55); VENOUS BLOOD PH 7.41 (7.32-7.43)
--- NOTE | 2017-08-05 09:02 | RAD ---
HISTORY: Code Stroke COMPARISON: 07/14/2017 FINDINGS: LUNGS: The lungs are well inflated. There is moderate pulmonary venous congestion. PLEURA: No significant pleural effusion identified, no pneumothorax apparent. CARDIOVASCULAR: Normal. OSSEOUS STRUCTURES: No significant abnormalities. VISUALIZED UPPER ABDOMEN: Normal. OTHER FINDINGS: None. IMPRESSION: Moderate pulmonary venous congestion.
--- NOTE | 2017-08-05 09:05 | RAD ---
HISTORY: line placement COMPARISON: 08/04/2017. FINDINGS: The right PICC line terminates in the right atrium. LUNGS: There is severe pulmonary venous congestion. PLEURA: There is a small right pleural effusion, no pneumothorax apparent. CARDIOVASCULAR: The heart remains enlarged. OSSEOUS STRUCTURES: No significant abnormalities. VISUALIZED UPPER ABDOMEN: Normal. OTHER FINDINGS: None. IMPRESSION: Right PICC line terminates in the right atrium. Persistent cardiomegaly and worsening pulmonary venous congestion.
[2017-08-05] MEDS ORDERED: Pantoprazole 40 mg EC Tab PO SCH (09:15)
[2017-08-05] MEDS ORDERED: Vancomycin 1 g Inj IVPB SCH (10:00)
[2017-08-05] MEDS ORDERED: Oseltamivir 6 MG/ML PO SCH (10:15)
[2017-08-05] MEDS: Enoxaparin 40 mg Syringe SC SCH (10:42)
[2017-08-05] MEDS: Meropenem 1g/NS 100mL IVPB 1 GM/100 ML PIGGYBACK IVPB SCH ×2 (10:48→21:19)
[2017-08-05] MEDS: Vancomycin 1gm in NS 250ml IVPB SCH (11:56)
[2017-08-05] MEDS ORDERED: PIPERACILLIN IVPB SCH (12:00)
[2017-08-05] MEDS ORDERED: NS IVPB SCH (12:00)
[2017-08-05] MEDS ORDERED: TAZOBACT IVPB SCH (12:00)
--- NOTE | 2017-08-05 13:14 | CP.PCM.CON ---
History of Present Illness - History of Present Illness History of Present Illness: 87 year old male with PMH of HTN, cerebrovascular accident, history of pneumonia , BPH, COPD, dementia was recently admitted in [facility] [place] ago for CVA and possible HCAP and was treated with Cefepime and Doxycycline. This time he is becoming more lethargic, poor appetite. In the ED, the patient was noted to be febrile with a WBC count of 26.2. There was no note of loss of consciousness, no convulsions, no diarrhea, no vomiting. When the patient came up to the floor , as per nurse, the patient was hypotensive, although he responded to fluid bolus. The patient continues to be lethargic and is somewhat tachypneic. Infectious Diseases consult is requested to further evaluate and manage. Review of Systems - Review of Systems All systems: reviewed and no additional remarkable complaints except (as per HPI ) Past Patient History - Infectious Disease Hx of Infectious Diseases: None - Tetanus Immunizations Tetanus Immunization: Unknown - Past Social History Smoking Status: Unknown If Ever Smoked - CARDIAC Hx Hypercholesterolemia: Yes Hx Hypertension: Yes - PULMONARY Hx Chronic Obstructive Pulmonary Disease (COPD): Yes - NEUROLOGICAL HX Cerebrovascular Accident: Yes - HEENT Hx HEENT Problems: Yes (WEARS RX GLASSES) Hx Cataracts: Yes - RENAL Hx Chronic Kidney Disease: Yes - ENDOCRINE/METABOLIC Hx Endocrine Disorders: No - HEMATOLOGICAL/ONCOLOGICAL Hx Blood Disorders: No - INTEGUMENTARY Hx Dermatological Problems: Yes (MULTIPLE ROUND OLD AGE SPOTS TO FACE,ARMS) - MUSCULOSKELETAL/RHEUMATOLOGICAL Hx Falls: No - GASTROINTESTINAL Hx Gastrointestinal Disorders: No - GENITOURINARY/GYNECOLOGICAL Hx Genitourinary Disorders: Yes - PSYCHIATRIC Hx Psychophysiologic Disorder: No - SURGICAL HISTORY Hx Surgeries: No Other/Comment: peg tube - ANESTHESIA Hx Anesthesia: No Meds Allergies/Adverse Reactions: Allergies Allergy/AdvReac Type Severity Reaction Status Date / Time No Known Allergies Allergy Verified 06/08/17 07:28 - Medications Medications: Current Medications Acetaminophen (Tylenol 325mg Tab) 650 mg PO Q4H PRN PRN Reason: Fever >100.4 F Last Admin: 08/05/17 01:06 Dose: 650 mg Acetaminophen (Tylenol 650 Mg Supp) 650 mg RC Q6H PRN PRN Reason: Pain, Mild (1-3) Atorvastatin Calcium (Lipitor) 40 mg PO DIN [facility] Donepezil HCl (Aricept) 5 mg PO HS [facility] Enoxaparin Sodium (Lovenox) 40 mg SC DAILY [facility] PRN Reason: Protocol Sodium Chloride (Sodium Chloride 0.9%) 1,000 mls @ 60 mls/hr IV .[id number] R[facility]IE Vancomycin HCl (Vancomycin 1gm) 1 gm in 250 mls @ 167 mls/hr IVPB DAILY [facility] Metoprolol Tartrate (Lopressor) 25 mg PO BID [facility] Dutasteride [Avodart ] 0.5 Mg (Home Med ) 0.5 mg PO DAILY [facility] Pantoprazole Sodium (Protonix Ec Tab) 40 mg PO ACB [facility] Piperacillin Sod/Tazobactam Sod (Zosyn 2.25 Gm In 0.9% 100 Ml) 2.25 gm IVPB Q6 [facility] PRN Reason: Protocol Stop: 08/05/17 18:01 Physical Exam - Constitutional Appears: Other (lethargic) - Head Exam Head Exam: NORMAL INSPECTION - ENT Exam ENT Exam: Mucous Membranes Moist - Neck Exam Neck exam: Negative for: Lymphadenopathy, Meningismus - Respiratory Exam Respiratory Exam: Decreased Breath Sounds - Cardiovascular Exam Cardiovascular Exam: +S1, +S2 - GI/Abdominal Exam GI & Abdominal Exam: Soft, Tenderness (noted on the right lower quadrant with some guarding but no rigidity, no rebound tenderness) Results - Vital Signs Recent Vital Signs: Last Vital Signs Temp 100.1 F H 08/05/17 04:02 Pulse 80 08/05/17 04:02 Resp 18 08/05/17 04:02 BP 101/54 L 08/05/17 04:02 Pulse Ox 93 L 08/05/17 04:02 - Labs Result Diagrams: 08/04/17 18:42 08/04/17 20:57 Labs: Laboratory Results - last 24 hr 08/04/17 08/05/17 08/05/17 23:31 03:45 07:30 pO2 262 H 52 56 H VBG pH 7.47 H 7.39 7.41 VBG pCO2 29.0 L 36.0 L 33.0 L VBG HCO3 21.1 21.8 20.9 L VBG Total CO2 22.0 22.9 21.9 L VBG O2 Sat (Calc) 100.1 H 91.1 H 95.5 H VBG Base Excess -1.5 L -2.6 L -2.9 L VBG Potassium 4.5 4.3 4.5 Sodium 136.0 138.0 136.0 Chloride 106.0 107.0 106.0 Glucose 147 H 137 H 172 H Lactate 3.9 H 3.0 H 2.8 H FiO2 21.0 21.0 21.0 Venous Blood Potassium 4.5 4.3 4.5 Assessment & Plan - Assessment and Plan (Free Text) Plan: Assessment systemic inflammatory response syndrome, R/O sepsis R/O intra-abdominal infection R/O hospital-acquired pneumonia history of severe sepsis with acute renal failure due to HCAP TIA COPD dementia HTN osteoarthritis chronic CHF cataracts Plan started Vancomycin and Merrem pending blood cx, urine cx; reviewed CXR which showed worsening pulmonary congestion will get PCT as well will order CT scan of the abdomen and pelvis recommend ICU evaluation
[2017-08-05] MEDS ORDERED: Sodium Chloride 0.9% 1,000 ML IV STA (13:16)
--- NOTE | 2017-08-05 13:16 | PCM.SEPTIC ---
Sepsis Progress Note - Reassessment Type Reassessment Type: Non-invasive reassessment - Non Invasive Reassessment Were the most recent vital sign reviewed: Yes Vital Sign (Latest): Temp Pulse Resp BP Pulse Ox 98.2 F 77 20 110/57 L 98 08/05/17 07:00 08/05/17 10:42 08/05/17 07:00 08/05/17 10:42 08/05/17 07:00 Cardiovascular: Yes: Regular Rate, Rhythm Respiratory: Yes: Decreased Breath Sounds Capillary Refill: Delayed Pulses: Decreased Radial, Decreased Dorsalis Pedis, Decreased Posterior Tibialis Skin: Normal Color
[2017-08-05 14:22] LABS: ARTERIAL BLOOD GAS HCO3 21.2 mmol/L (21-28); ARTERIAL BLOOD GAS O2 SAT 96.5 % (95-98); ARTERIAL BLOOD GAS PCO2 32 mm/Hg (35-45); ARTERIAL BLOOD GAS PH 7.43 (7.35-7.45); ARTERIAL BLOOD GAS TCO2 22.2 mmol.L (22-28)
--- NOTE | 2017-08-05 16:43 | CT ---
PROCEDURE: CT Abdomen and Pelvis without intravenous contrast HISTORY: rule out intra-abdominal infection COMPARISON: N 07/09/2017. TECHNIQUE: CT scan of the abdomen and pelvis was performed without administration of intravenous contrast. Oral contrast was not administered. Coronal and sagittal reformatted images were obtained. Radiation dose: Total exam DLP = 819.65 mGy-cm. This CT exam was performed using one or more of the following dose reduction techniques: Automated exposure control, adjustment of the mA and/or kV according to patient size, and/or use of iterative reconstruction technique. FINDINGS: LOWER THORAX: There is a large right hydro pneumothorax. The left lung base is clear. LIVER: Normal in size with stable simple. No ductal dilatation. GALLBLADDER AND BILE DUCTS: There is a solitary noncalcified gallstone. PANCREAS: Normal in size. No ductal dilatation or calcifications. SPLEEN: Normal in size. ADRENALS: No discrete nodule. KIDNEYS AND URETERS: Normal in size without hydronephrosis. There are punctate nonobstructing stones in the kidneys the VASCULATURE: There are advanced atherosclerotic aortoiliac calcifications. No aortic aneurysm BOWEL: The small bowel loops are normal in caliber. There is circumferential mural thickening in the cecum with surrounding inflammatory changes. The ascending transverse and descending colon are decompressed. No bowel dilatation or obstruction a rectal tube remains in place. APPENDIX: Not distinctly identified. PERITONEUM: No free fluid. No free air. LYMPH NODES: No enlarged lymph nodes. BLADDER: Decompressed. An indwelling Light catheter remains in place with expected intraluminal air. REPRODUCTIVE: Unremarkable. BONES: Diffuse bone demineralization and chronic inferior endplate compression fracture deformity in the L1 vertebral body. OTHER FINDINGS: There are bilateral small fat containing inguinal hernias. IMPRESSION: 1. Large right hydro pneumothorax. 2. Circumferential mural thickening in the cecum with surrounding inflammatory changes concerning for nonspecific typhlitis. No evidence of intra abdominal abscess. Critical findings were discussed with nurse Washington on the floor on 08/05/2017 at 4:30 p.m. These critical findings were understood and acknowledged.
--- NOTE | 2017-08-05 18:36 | CP.PCM.PCO ---
Additional Comments - Additional Comments Additional Comments: Patient's family requested to discuss the patient's code status again. They state that after discussing amongst themselves, they would like to rescind the previously signed DNI order. They would like to implement full code status for the patient. Patient's daughter: Savannah Harrison making decisions for the patient. Nursing staff notified of the code status change. Dr. Yoo, notified of the code status change. Alejo Cavanaugh PGY1 surgery pager: [phone]
--- NOTE | 2017-08-05 18:37 | CP.PCM.CON ---
History of Present Illness - History of Present Illness History of Present Illness: Surgery consult note. Dr. Vizcaino Patient history obtained from family and chart review. [employer] service used for interpretation. 87yo M with PMHx of CVA, CHF, COPD, Advanced dementia, HTN, OA, PNA admitted to the hospital due to AMS secondary to sepsis. Yesterday evening, patient was brought in by ambulance when family noted decreased responsiveness. In the ER, Right subclavian TLC was placed, however, no blood return. CXR at that time with catheter tip at appropriate location. Patient was found to have an evidence of a UTI and placed on antibiotics. Patient was found to be febrile and hypotensive overnight, responded to fluid bolus. CT Abd/Pelvis performed this afternoon, with evidence of large right sided hydropneumothorax. Patient currently denies any chest pain. Does report some shortness of breath. Denies any abdominal pain. No N/V. No diarrhea. PMHx: CVA, CHF, COPD, Advanced dementia, HTN, OA, PNA PSHx: Denies Social Hx: Lives with family NKDA Review of Systems - Review of Systems Systems not reviewed;Unavailable: Dementia, Altered Mental Status - Cardiovascular Cardiovascular: Dyspnea. absent: Chest Pain - Gastrointestinal Gastrointestinal: absent: Abdominal Pain Past Patient History - Infectious Disease Hx of Infectious Diseases: None - Tetanus Immunizations Tetanus Immunization: Unknown - Past Social History Smoking Status: Unknown If Ever Smoked - CARDIAC Hx Hypercholesterolemia: Yes Hx Hypertension: Yes - PULMONARY Hx Chronic Obstructive Pulmonary Disease (COPD): Yes - NEUROLOGICAL HX Cerebrovascular Accident: Yes - HEENT Hx HEENT Problems: Yes (WEARS RX GLASSES) Hx Cataracts: Yes - RENAL Hx Chronic Kidney Disease: Yes - ENDOCRINE/METABOLIC Hx Endocrine Disorders: No - HEMATOLOGICAL/ONCOLOGICAL Hx Blood Disorders: No - INTEGUMENTARY Hx Dermatological Problems: Yes (MULTIPLE ROUND OLD AGE SPOTS TO FACE,ARMS) - MUSCULOSKELETAL/RHEUMATOLOGICAL Hx Falls: No - GASTROINTESTINAL Hx Gastrointestinal Disorders: No - GENITOURINARY/GYNECOLOGICAL Hx Genitourinary Disorders: Yes - PSYCHIATRIC Hx Psychophysiologic Disorder: No - SURGICAL HISTORY Hx Surgeries: No Other/Comment: peg tube - ANESTHESIA Hx Anesthesia: No Meds Allergies/Adverse Reactions: Allergies Allergy/AdvReac Type Severity Reaction Status Date / Time No Known Allergies Allergy Verified 06/08/17 07:28 - Medications Medications: Current Medications Acetaminophen (Tylenol 650 Mg Supp) 650 mg RC Q6H PRN PRN Reason: Pain, Mild (1-3) Atorvastatin Calcium (Lipitor) 40 mg PO DIN [facility] Last Admin: 08/05/17 17:32 Dose: Not Given Donepezil HCl (Aricept) 5 mg PO HS [facility] Enoxaparin Sodium (Lovenox) 40 mg SC DAILY RYLIE PRN Reason: Protocol Last Admin: 08/05/17 10:42 Dose: 40 mg Vancomycin HCl (Vancomycin 1gm) 1 gm in 250 mls @ 167 mls/hr IVPB DAILY [facility] Last Admin: 08/05/17 11:56 Dose: 167 mls/hr Meropenem/Sodium Chloride (Meropenem 1g/Ns 100ml Ivpb) 1 gm in 100 mls @ 100 mls/hr IVPB Q12 [facility] PRN Reason: Protocol Last Admin: 08/05/17 10:48 Dose: 100 mls/hr Metronidazole (Flagyl) 500 mg in 100 mls @ 100 mls/hr IVPB Q8 [facility] PRN Reason: Protocol Metoprolol Tartrate (Lopressor) 25 mg PO BID [facility] Last Admin: 08/05/17 17:32 Dose: Not Given Dutasteride [Avodart ] 0.5 Mg (Home Med ) 0.5 mg PO DAILY [facility] Last Admin: 08/05/17 10:42 Dose: Not Given Oseltamivir Phosphate (Tamiflu Susp) 30 mg PO DAILY [facility] PRN Reason: Protocol Last Admin: 08/05/17 10:48 Dose: 30 mg Pantoprazole Sodium (Protonix Ec Tab) 40 mg PO ACB [facility] Last Admin: 08/05/17 10:42 Dose: Not Given Physical Exam - Constitutional Appears: No Acute Distress Additional comments: lying in bed. No acute distress. Able to speak in short sentences without any signs of respiratory distress - Eye Exam Eye Exam: EOMI. absent: Scleral icterus - ENT Exam ENT Exam: Mucous Membranes Moist - Cardiovascular Exam Cardiovascular Exam: RRR. absent: JVD Additional comments: Right anterior chest with subclavian TLC noted. Inflammation noted at the insertion site. No blood return upon aspiration. - GI/Abdominal Exam GI & Abdominal Exam: Soft. absent: Distended, Firm, Guarding, Rebound, Rigid, Tenderness - Extremities Exam Extremities exam: Positive for: normal inspection. Negative for: calf tenderness - Neurological Exam Neurological exam: Alert Additional comments: Oriented to person - Skin Skin Exam: Dry, Intact, Normal Color, Warm Results - Vital Signs Recent Vital Signs: Last Vital Signs Temp 98.3 F 08/05/17 10:00 Pulse 79 08/05/17 17:32 Resp 20 08/05/17 07:00 BP 128/63 08/05/17 17:32 Pulse Ox 98 08/05/17 07:00 - Labs Result Diagrams: 08/04/17 18:42 08/04/17 20:57 Labs: Laboratory Results - last 24 hr 08/04/17 08/05/17 08/05/17 23:31 03:45 07:30 pCO2 pO2 262 H 52 56 H HCO3 ABG pH ABG Total CO2 ABG O2 Saturation ABG Base Excess ABG Potassium VBG pH 7.47 H 7.39 7.41 VBG pCO2 29.0 L 36.0 L 33.0 L VBG HCO3 21.1 21.8 20.9 L VBG Total CO2 22.0 22.9 21.9 L VBG O2 Sat (Calc) 100.1 H 91.1 H 95.5 H VBG Base Excess -1.5 L -2.6 L -2.9 L VBG Potassium 4.5 4.3 4.5 Sodium 136.0 138.0 136.0 Chloride 106.0 107.0 106.0 Glucose 147 H 137 H 172 H Lactate 3.9 H 3.0 H 2.8 H FiO2 21.0 21.0 21.0 POC Glucose (mg/dL) Troponin I Arterial Blood Potassium Venous Blood Potassium 4.5 4.3 4.5 Influenza Typ A,B (EIA) 08/05/17 08/05/17 08/05/17 10:11 13:10 13:58 pCO2 pO2 HCO3 ABG pH ABG Total CO2 ABG O2 Saturation ABG Base Excess ABG Potassium VBG pH VBG pCO2 VBG HCO3 VBG Total CO2 VBG O2 Sat (Calc) VBG Base Excess VBG Potassium Sodium Chloride Glucose Lactate FiO2 POC Glucose (mg/dL) 152 H Troponin I 0.02 D Arterial Blood Potassium Venous Blood Potassium Influenza Typ A,B (EIA) Negative for flu a/b 08/05/17 14:19 pCO2 32 L pO2 57.0 L HCO3 21.2 ABG pH 7.43 ABG Total CO2 22.2 ABG O2 Saturation 96.5 ABG Base Excess -2.3 L ABG Potassium 3.6 VBG pH VBG pCO2 VBG HCO3 VBG Total CO2 VBG O2 Sat (Calc) VBG Base Excess VBG Potassium Sodium 139.0 Chloride 111.0 H Glucose 157 H Lactate 1.7 FiO2 32.0 POC Glucose (mg/dL) Troponin I Arterial Blood Potassium 3.6 Venous Blood Potassium Influenza Typ A,B (EIA) Assessment & Plan - Assessment and Plan (Free Text) Assessment: 87yo M here with AMS secondary to sepsis, likely urosepsis. Surgery consulted for Right Hydropneumothorax. - consider iatrogenic cause - CT Abd/Pelvis noted - CXRs noted - Leukocytosis - Currently, Vital signs are stable. Normotensive. Afebrile. Normocardic. Plan: - Right subclavian TLC removed. - Obtain 2 large bore peripheral IVs - May benefit from supplemental O2 - Family discussion had: They would like to rescind previously stated DNI and resume Full code status at this time. - Transfer to ICU for close monitoring. Needs continuous SpO2 monitoring - Evaluate for respiratory distress - Consents obtained for Right sided chest tube placement and triple lumen catheter placement if patient's clinical status deteriorates. Signed and placed on chart. - We will monitor patient's clinical status, obtain serial CXRs and make further recommendations as necessary Further recs as per Dr. Carrillo Cavanaugh PGY1 surgery pager: [phone]
[2017-08-05] MEDS: metroNIDAZOLE IV 500 mg/100 ml 500 MG/100 ML BAG IVPB SCH (21:20)
--- NOTE | 2017-08-06 01:32 | CON ---
DATE: HISTORY OF PRESENT ILLNESS: This is an 87-year-old gentleman with history of prior CVA, dementia, status post PEG tube, who was recently admitted to for stroke and possible HCAP, and at that time, he was treated with antibiotics with some improvement. Yesterday, patient was admitted to [facility] for poor appetite, increased lethargy. He was noted to have leukocytosis and fever. His urine was positive for urine nitrites and trace of leukocyte esterase as well as many bacteria was found in the urine as well. Patient was started on meropenem and vancomycin. He was given 1 L of normal saline as a bolus, and started on enteral feeds. His lactic acid was slightly elevated and we will repeat VBG with lactic acid today to follow up on that. At the time of ICU evaluation, patient is afebrile. No diarrhea, no constipation. No chills, no sweats. Patient is not in distress. PAST MEDICAL HISTORY: BPH, COPD, dementia, CVA. FAMILY HISTORY: Noncontributory. SOCIAL HISTORY: No alcohol or illicit drug abuse. No tobacco smoking. ALLERGIES: NKDA. CURRENT MEDICATIONS: Tylenol p.r.n., Lipitor, Aricept, Avodart, Lovenox 40 mg subcu daily, meropenem, metoprolol, Tamiflu, Protonix and vancomycin. REVIEW OF SYSTEMS: Review of 12-organ system other than mentioned in history of present illness is negative. PHYSICAL EXAMINATION: VITAL SIGNS: Blood pressure 128/63, heart rate 85, oxygen saturation 95% on 2 L nasal cannula, respiratory rate 18. HEENT: Head and neck atraumatic. LUNGS: Clear to auscultation bilaterally. HEART: Regular rate and rhythm. S1 and S2 normal. ABDOMEN: Soft, nontender, nondistended. PEG tube in place. MUSCULOSKELETAL: No C/C/E. NEUROLOGIC: Patient is not cooperative with neuro exam. SKIN: Moist. PSYCHIATRIC: Patient has a baseline dementia and his psych evaluation appears to be in line with this underlying diagnosis. LABORATORY DATA: Sodium 136, potassium 4.5, chloride 99, carbon dioxide 23, BUN 24, creatinine 1.2, glucose 158, AST 36, ALT 48, total bilirubin 1.8. WBC 20s, hemoglobin 13.1. Influenza negative. VBG, 7.41, lactic acid 2.8 down from 3.9. INR 1.13. Urine positive for leukocyte esterase and urine nitrites, wbc and bacteria. Chest x-ray showed some vascular congestion. EKG, no specific ischemic changes. Head CT showed encephalomalacia in the bilateral basal ganglia and right rivera radiata suggestive of old infarctions, mild atrophy and moderate white matter changes. ASSESSMENT AND PLAN: This is an 87-year-old gentleman with sepsis most likely secondary to urinary tract infection. Patient is hemodynamically stable. As per nurse, his mental status appears to be substantially improved today compared with yesterday. His chest x-ray showed a little bit of congestion. I will stop maintenance fluid, and if need be, we will give small IV boluses when needed. Patient is also receiving enteral nutrition and getting free water flushes about 150 mL every 6 hours. I will repeat venous blood gas with lactic acid level and we will trend lactic acid as well. Patient is already on broad-spectrum antibiotics, and procalcitonin will be ordered. Blood culture and urine culture were ordered. CAT scan of the abdomen and pelvis appears to be reasonable, and will be followed up as well. We will continue to target euvolemia, euglycemia, normothermia, and oxygen saturation more than 90%. We will continue with deep vein thrombosis and gastrointestinal prophylaxis. Will follow. Addendum: CT abdomen and pelvis showed new large hydropneumothorax. Dr. Vizcaino was called and evaluated the patient. No immediate chest tube recommended. DNI order was rescended by family, patient transfered to ICU for monitoring, serial cxr, and fi02. ccm time 40 min Bucky Yoo MD SONYA
[2017-08-06 05:18] LABS: BASO # 0.02 K/mm3 (0.0-2.0); BASO % 0.1 % (0.0-3.0); GRAN # 28.13 (1.4-6.5); GRAN % 89.7 % (50.0-68.0); HEMOGLOBIN 11.1 g/dL (14.0-18.0); LYMPH # 1.7 (1.2-3.4); LYMPH % 5.6 % (22.0-35.0); MEAN CELL VOLUME 85.7 fl (80.0-105.0); MEAN CORPUSCULAR HEMOGLOBIN 28.9 pg (25.0-35.0); MEAN CORPUSCULAR HGB CONC 33.7 g/dl (31.0-37.0); MONO # 1.5 (0.1-0.6); MONO % 4.6 % (1.0-6.0); RBC 3.84 10^6/uL (3.5-6.1); RED CELL DISTRIBUTION WIDTH 15.5 % (11.5-14.5)
[2017-08-06 05:21] LABS: WHITE BLOOD COUNT 31.4 10^3/ul (4.5-11.0)
[2017-08-06] MEDS: metroNIDAZOLE IV 500 mg/100 ml 500 MG/100 ML BAG IVPB SCH ×3 (05:30→23:18)
[2017-08-06 05:58] LABS: ALT/SGPT 86 U/L (7-56); AST/SGOT 95 U/L (17-59); BLOOD UREA NITROGEN 27 mg/dL (7-21); CALCIUM 8.4 mg/dL (8.4-10.5); GFR AFRICAN-AMERICAN > 60; GFR NON-AFRICAN AMERICAN 57; MAGNESIUM 2.1 mg/dL (1.7-2.2)
[2017-08-06] MEDS ORDERED: Lidocaine 1% Inj (20ml) IJ STA (07:51)
--- NOTE | 2017-08-06 08:48 | RAD ---
HISTORY: hydropneumothorax COMPARISON: 08/04/2017 FINDINGS: LUNGS: The left lung is well inflated and clear. PLEURA: There is a moderate to large right hydropneumothorax with mild shift of mediastinal to the left. CARDIOVASCULAR: Normal. OSSEOUS STRUCTURES: No significant abnormalities. VISUALIZED UPPER ABDOMEN: Normal. OTHER FINDINGS: None. IMPRESSION: Moderate to large right hydro pneumothorax.
--- NOTE | 2017-08-06 08:50 | RAD ---
HISTORY: post chest tube insertion COMPARISON: 08/06/2017. FINDINGS: LUNGS: The lungs are clear. PLEURA: The right chest tube is directed towards the apex. Residual small right hydro pneumothorax. CARDIOVASCULAR: The heart is normal in size. OSSEOUS STRUCTURES: No significant abnormalities. VISUALIZED UPPER ABDOMEN: Normal. OTHER FINDINGS: None. IMPRESSION: Status post right chest tube placement, interval significant improvement in the large right hydro pneumothorax with residual small right hydro pneumothorax.
--- NOTE | 2017-08-06 08:56 | CP.CCUPN ---
<Aman Chahal - Last Filed: 08/06/17 09:46> CCU Subjective - Physician Review Subjective (Free Text): Aman Chahal PGY1 ICU Note for Dr. Yoo Patient was seen and examined in ICU. The patient's mental state is at baseline and he is awake and alert but minimally responsive. He is able to follow simple commands but is non-verbal, even in Thai but responds appropriately. The patient is in NAD and is hemodynamically stable not requiring fluids or pressors at this time. ROS was limited due to AMS. CCU Objective - Vital Signs / Intake & Output Vital Signs (Last 4 hours): Vital Signs Temp Pulse Resp BP Pulse Ox 08/06/17 08:40 98.1 F 84 20 97 08/06/17 08:30 98.1 F 81 30 H 131/59 L 99 08/06/17 08:22 97.9 F 89 22 129/58 L 100 08/06/17 08:20 97.9 F 84 16 133/50 L 100 08/06/17 08:18 97.9 F 82 16 130/43 L 99 08/06/17 08:16 97.9 F 82 16 151/71 H 100 08/06/17 08:14 97.9 F 85 16 132/63 100 08/06/17 08:12 97.9 F 83 21 139/67 100 08/06/17 08:10 97.9 F 81 20 139/58 L 100 08/06/17 08:08 97.9 F 83 24 152/49 H 99 08/06/17 08:06 97.9 F 84 29 H 134/67 100 08/06/17 08:04 97.9 F 83 31 H 160/71 H 99 08/06/17 08:02 97.9 F 80 24 152/72 H 99 08/06/17 08:00 97.9 F 81 20 144/71 98 08/06/17 07:58 97.9 F 83 18 136/70 98 08/06/17 07:56 97.9 F 83 23 153/71 H 97 08/06/17 07:54 97.9 F 82 22 127/40 L 97 08/06/17 07:51 97.9 F 80 16 116/49 L 96 08/06/17 07:50 97.9 F 82 18 96 08/06/17 07:45 97.9 F 79 17 120/73 96 08/06/17 07:40 97.9 F 83 16 96 08/06/17 07:31 140/61 08/06/17 07:30 97.9 F 81 17 97 08/06/17 07:20 97.9 F 84 19 97 08/06/17 07:10 97.9 F 77 14 96 08/06/17 07:00 97.9 F 80 26 H 96 08/06/17 06:50 97.9 F 82 16 96 08/06/17 06:40 97.9 F 84 20 93 L 08/06/17 06:30 97.9 F 80 17 95 08/06/17 06:20 97.9 F 78 23 95 08/06/17 06:10 97.9 F 82 17 95 08/06/17 06:07 97.9 F 87 95 08/06/17 06:00 97.9 F 88 25 H 08/06/17 05:50 97.9 F 91 H 39 H 97 08/06/17 05:45 97.9 F 89 24 135/62 95 08/06/17 05:40 97.9 F 90 18 96 08/06/17 05:35 132/56 L 08/06/17 05:34 97.9 F 82 17 96 08/06/17 05:30 97.9 F 80 16 96 08/06/17 05:20 97.9 F 86 17 94 L 08/06/17 05:10 98.2 F 99 H 18 94 L 08/06/17 05:00 98.1 F 79 15 96 Intake and Output (Last 8hrs): Intake & Output 08/05/17 08/06/17 08/06/17 22:59 06:59 14:59 Intake Total 300 Output Total 402 Balance -102 Intake: IV 300 Right Wrist 300 Output: Urine 400 Urethral (Otero) 400 Stool 2 - Physical Exam Physical Exam Limitations: Positive for: Altered Mental Status Head: Positive for: Atraumatic, Normocephalic Pupils: Positive for: PERRL Mouth: Positive for: Moist Mucous Membranes Neck: Positive for: Normal Range of Motion Respiratory/Chest: Positive for: Clear to Auscultation. Negative for: Good Air Exchange (decreased breath sounds R side ), Respiratory Distress, Accessory Muscle Use, Wheezes, Rales, Rhonchi Cardiovascular: Positive for: Regular Rate and Rhythm, Normal S1, S2. Negative for: Murmurs Abdomen: Positive for: Normal Bowel Sounds, Other (PEG tube in place). Negative for: Tenderness, Distention, Peritoneal Signs Genitourinary Male: Positive for: Other (otero catheter in place) Back: Positive for: Normal Inspection Upper Extremity: Positive for: Normal Inspection. Negative for: Cyanosis, Edema Lower Extremity: Positive for: Normal Inspection, Other (decreased muscle mass. No edema. No sign of soft tissue infection.). Negative for: Edema Neurological: Positive for: Motor Func Grossly Intact. Negative for: GCS=15 ( 13 [id number]), Speech Normal Skin: Positive for: Warm, Dry, Normal Color. Negative for: Rashes Lymphatic: Positive for: OX3, NI, NC Psychiatric: Positive for: Other (unable to express, nonverbal) - Medications Active Medications: Active Medications Generic Name Dose Route Start Last Admin Trade Name Freq PRN Reason Stop Dose Admin Acetaminophen 650 mg 08/05/17 09:08 Tylenol 650 Mg Supp RC Q6H PRN Pain, Mild (1-3) Atorvastatin Calcium 40 mg 08/05/17 17:00 08/05/17 17:32 Lipitor PO Not Given DIN RYLIE Donepezil HCl 5 mg 08/05/17 22:00 08/05/17 21:20 Aricept PO 5 mg HS RYLIE Administration Enoxaparin Sodium 40 mg 08/05/17 10:00 08/05/17 10:42 Lovenox SC 40 mg DAILY RYLIE Administration Protocol Vancomycin HCl 1 gm in 250 mls @ 167 mls/hr 08/05/17 10:00 08/05/17 11:56 Vancomycin 1gm IVPB 167 mls/hr DAILY RYLIE Administration Meropenem/Sodium Chloride 1 gm in 100 mls @ 100 mls/hr 08/05/17 10:15 21:19 Meropenem 1g/Ns 100ml Ivpb IVPB 100 mls/hr Q12 RYLIE Administration Protocol Metronidazole 500 mg in 100 mls @ 100 mls/hr 08/05/17 22:00 08/06/17 05:30 Flagyl IVPB 100 mls/hr Q8 RYLIE Administration Protocol Metoprolol Tartrate 25 mg 08/05/17 10:00 08/05/17 17:32 Lopressor PO Not Given BID [facility] Dutasteride [Avodart 0.5 mg 08/05/17 10:00 08/05/17 10:42 ] 0.5 Mg (Home Med PO Not Given ) DAILY [facility] Pantoprazole Sodium 40 mg 08/05/17 09:15 08/05/17 10:42 Protonix Ec Tab PO Not Given ACB RYLIE - Patient Studies Lab Studies: Microbiology Studies 08/05/17 01:50 C. difficile Antigen & Toxin A,B (M - Final Stool Lab Studies 08/06/17 08/06/17 08/06/17 Range/Units 06:15 05:00 05:00 WBC 31.4 H* (4.5-11.0) 10^3/ul RBC 3.84 (3.5-6.1) 10^6/uL Hgb 11.1 L D (14.0-18.0) g/dL Hct 32.9 L (42.0-52.0) % MCV 85.7 (80.0-105.0) fl MCH 28.9 (25.0-35.0) pg MCHC 33.7 (31.0-37.0) g/dl RDW 15.5 H (11.5-14.5) % Plt Count 187 (120.0-450.0) 10^3/uL MPV 11.0 (7.0-11.0) fl Gran % 89.7 H (50.0-68.0) % Lymph % (Auto) 5.6 L (22.0-35.0) % Dare % (Auto) 4.6 (1.0-6.0) % Eos % (Auto) 0.0 L (1.5-5.0) % Baso % (Auto) 0.1 (0.0-3.0) % Gran # 28.13 H (1.4-6.5) Lymph # (Auto) 1.7 (1.2-3.4) Dare # (Auto) 1.5 H (0.1-0.6) Eos # (Auto) 0.0 (0.0-0.7) Baso # (Auto) 0.02 (0.0-2.0) K/mm3 pCO2 (35-45) mm/Hg pO2 (80-100) mm/Hg HCO3 (21-28) mmol/L ABG pH (7.35-7.45) ABG Total CO2 (22-28) mmol.L ABG O2 Saturation (95-98) % ABG Base Excess (-2.0-3.0) mmol/L ABG Potassium (3.6-5.2) mmol/L Sodium 145 (132-148) mmol/L Chloride 110 H (98-107) mmol/L Glucose (75-110) mg/dl Lactate (0.7-2.1) mmol/L FiO2 % Potassium 3.9 (3.6-5.0) mmol/L Carbon Dioxide 24 (21-33) mmol/L Anion Gap 15 (10-20) BUN 27 H (7-21) mg/dL Creatinine 1.2 (0.8-1.5) mg/dl Est GFR ( Amer) > 60 Est GFR (Non-Af Amer) 57 POC Glucose (mg/dL) (65-110) mg/dL Random Glucose 112 H (70-110) mg/dL Calcium 8.4 (8.4-10.5) mg/dL Phosphorus 3.1 (2.5-4.5) mg/dL Magnesium 2.1 (1.7-2.2) mg/dL Total Bilirubin 1.2 (0.2-1.3) mg/dL AST 95 H D (17-59) U/L ALT 86 H (7-56) U/L Alkaline Phosphatase 84 (38-126) U/L Troponin I ng/mL Total Protein 6.1 (5.8-8.3) g/dL Albumin 3.0 (3.0-4.8) g/dL Globulin 3.1 gm/dL Albumin/Globulin Ratio 1.0 L (1.1-1.8) Procalcitonin (0.19-0.49) NG/ML Arterial Blood Potassium (3.6-5.2) mmol/L Stool Occult Blood Positive H (NEGATIVE) Influenza Typ A,B (EIA) (NEGATIVE) 08/05/17 08/05/17 08/05/17 Range/Units 14:19 13:58 13:10 WBC (4.5-11.0) 10^3/ul RBC (3.5-6.1) 10^6/uL Hgb (14.0-18.0) g/dL Hct (42.0-52.0) % MCV (80.0-105.0) fl MCH (25.0-35.0) pg MCHC (31.0-37.0) g/dl RDW (11.5-14.5) % Plt Count (120.0-450.0) 10^3/uL MPV (7.0-11.0) fl Gran % (50.0-68.0) % Lymph % (Auto) (22.0-35.0) % Dare % (Auto) (1.0-6.0) % Eos % (Auto) (1.5-5.0) % Baso % (Auto) (0.0-3.0) % Gran # (1.4-6.5) Lymph # (Auto) (1.2-3.4) Dare # (Auto) (0.1-0.6) Eos # (Auto) (0.0-0.7) Baso # (Auto) (0.0-2.0) K/mm3 pCO2 32 L (35-45) mm/Hg pO2 57.0 L (80-100) mm/Hg HCO3 21.2 (21-28) mmol/L ABG pH 7.43 (7.35-7.45) ABG Total CO2 22.2 (22-28) mmol.L ABG O2 Saturation 96.5 (95-98) % ABG Base Excess -2.3 L (-2.0-3.0) mmol/L ABG Potassium 3.6 (3.6-5.2) mmol/L Sodium 139.0 (132-148) mmol/L Chloride 111.0 H (98-107) mmol/L Glucose 157 H (75-110) mg/dl Lactate 1.7 (0.7-2.1) mmol/L FiO2 32.0 % Potassium (3.6-5.0) mmol/L Carbon Dioxide (21-33) mmol/L Anion Gap (10-20) BUN (7-21) mg/dL Creatinine (0.8-1.5) mg/dl Est GFR ( Amer) Est GFR (Non-Af Amer) POC Glucose (mg/dL) 152 H (65-110) mg/dL Random Glucose (70-110) mg/dL Calcium (8.4-10.5) mg/dL Phosphorus (2.5-4.5) mg/dL Magnesium (1.7-2.2) mg/dL Total Bilirubin (0.2-1.3) mg/dL AST (17-59) U/L ALT (7-56) U/L Alkaline Phosphatase (38-126) U/L Troponin I 0.02 D ng/mL Total Protein (5.8-8.3) g/dL Albumin (3.0-4.8) g/dL Globulin gm/dL Albumin/Globulin Ratio (1.1-1.8) Procalcitonin (0.19-0.49) NG/ML Arterial Blood Potassium 3.6 (3.6-5.2) mmol/L Stool Occult Blood (NEGATIVE) Influenza Typ A,B (EIA) (NEGATIVE) 08/05/17 08/05/17 Range/Units 13:10 10:11 WBC (4.5-11.0) 10^3/ul RBC (3.5-6.1) 10^6/uL Hgb (14.0-18.0) g/dL Hct (42.0-52.0) % MCV (80.0-105.0) fl MCH (25.0-35.0) pg MCHC (31.0-37.0) g/dl RDW (11.5-14.5) % Plt Count (120.0-450.0) 10^3/uL MPV (7.0-11.0) fl Gran % (50.0-68.0) % Lymph % (Auto) (22.0-35.0) % Dare % (Auto) (1.0-6.0) % Eos % (Auto) (1.5-5.0) % Baso % (Auto) (0.0-3.0) % Gran # (1.4-6.5) Lymph # (Auto) (1.2-3.4) Dare # (Auto) (0.1-0.6) Eos # (Auto) (0.0-0.7) Baso # (Auto) (0.0-2.0) K/mm3 pCO2 (35-45) mm/Hg pO2 (80-100) mm/Hg HCO3 (21-28) mmol/L ABG pH (7.35-7.45) ABG Total CO2 (22-28) mmol.L ABG O2 Saturation (95-98) % ABG Base Excess (-2.0-3.0) mmol/L ABG Potassium (3.6-5.2) mmol/L Sodium (132-148) mmol/L Chloride (98-107) mmol/L Glucose (75-110) mg/dl Lactate (0.7-2.1) mmol/L FiO2 % Potassium (3.6-5.0) mmol/L Carbon Dioxide (21-33) mmol/L Anion Gap (10-20) BUN (7-21) mg/dL Creatinine (0.8-1.5) mg/dl Est GFR ( Amer) Est GFR (Non-Af Amer) POC Glucose (mg/dL) (65-110) mg/dL Random Glucose (70-110) mg/dL Calcium (8.4-10.5) mg/dL Phosphorus (2.5-4.5) mg/dL Magnesium (1.7-2.2) mg/dL Total Bilirubin (0.2-1.3) mg/dL AST (17-59) U/L ALT (7-56) U/L Alkaline Phosphatase (38-126) U/L Troponin I ng/mL Total Protein (5.8-8.3) g/dL Albumin (3.0-4.8) g/dL Globulin gm/dL Albumin/Globulin Ratio (1.1-1.8) Procalcitonin 90.35 H (0.19-0.49) NG/ML Arterial Blood Potassium (3.6-5.2) mmol/L Stool Occult Blood (NEGATIVE) Influenza Typ A,B (EIA) Negative for flu a/b (NEGATIVE) Laboratory Results - last 24 hr 08/05/17 08/05/17 08/05/17 10:11 13:10 13:10 WBC RBC Hgb Hct MCV MCH MCHC RDW Plt Count MPV Gran % Lymph % (Auto) Dare % (Auto) Eos % (Auto) Baso % (Auto) Gran # Lymph # (Auto) Dare # (Auto) Eos # (Auto) Baso # (Auto) pCO2 pO2 HCO3 ABG pH ABG Total CO2 ABG O2 Saturation ABG Base Excess ABG Potassium Sodium Chloride Glucose Lactate FiO2 Potassium Carbon Dioxide Anion Gap BUN Creatinine Est GFR ( Amer) Est GFR (Non-Af Amer) POC Glucose (mg/dL) Random Glucose Calcium Phosphorus Magnesium Total Bilirubin AST ALT Alkaline Phosphatase Troponin I 0.02 D Total Protein Albumin Globulin Albumin/Globulin Ratio Procalcitonin 90.35 H Arterial Blood Potassium Stool Occult Blood Influenza Typ A,B (EIA) Negative for flu a/b 08/05/17 08/05/17 08/06/17 13:58 14:19 05:00 WBC 31.4 H* RBC 3.84 Hgb 11.1 L D Hct 32.9 L MCV 85.7 MCH 28.9 MCHC 33.7 RDW 15.5 H Plt Count 187 MPV 11.0 Gran % 89.7 H Lymph % (Auto) 5.6 L Dare % (Auto) 4.6 Eos % (Auto) 0.0 L Baso % (Auto) 0.1 Gran # 28.13 H Lymph # (Auto) 1.7 Dare # (Auto) 1.5 H Eos # (Auto) 0.0 Baso # (Auto) 0.02 pCO2 32 L pO2 57.0 L HCO3 21.2 ABG pH 7.43 ABG Total CO2 22.2 ABG O2 Saturation 96.5 ABG Base Excess -2.3 L ABG Potassium 3.6 Sodium 139.0 Chloride 111.0 H Glucose 157 H Lactate 1.7 FiO2 32.0 Potassium Carbon Dioxide Anion Gap BUN Creatinine Est GFR ( Amer) Est GFR (Non-Af Amer) POC Glucose (mg/dL) 152 H Random Glucose Calcium Phosphorus Magnesium Total Bilirubin AST ALT Alkaline Phosphatase Troponin I Total Protein Albumin Globulin Albumin/Globulin Ratio Procalcitonin Arterial Blood Potassium 3.6 Stool Occult Blood Influenza Typ A,B (EIA) 08/06/17 08/06/17 05:00 06:15 WBC RBC Hgb Hct MCV MCH MCHC RDW Plt Count MPV Gran % Lymph % (Auto) Dare % (Auto) Eos % (Auto) Baso % (Auto) Gran # Lymph # (Auto) Dare # (Auto) Eos # (Auto) Baso # (Auto) pCO2 pO2 HCO3 ABG pH ABG Total CO2 ABG O2 Saturation ABG Base Excess ABG Potassium Sodium 145 Chloride 110 H Glucose Lactate FiO2 Potassium 3.9 Carbon Dioxide 24 Anion Gap 15 BUN 27 H Creatinine 1.2 Est GFR ( Amer) > 60 Est GFR (Non-Af Amer) 57 POC Glucose (mg/dL) Random Glucose 112 H Calcium 8.4 Phosphorus 3.1 Magnesium 2.1 Total Bilirubin 1.2 AST 95 H D ALT 86 H Alkaline Phosphatase 84 Troponin I Total Protein 6.1 Albumin 3.0 Globulin 3.1 Albumin/Globulin Ratio 1.0 L Procalcitonin Arterial Blood Potassium Stool Occult Blood Positive H Influenza Typ A,B (EIA) Fingerstick Blood Sugar Results: 124 Review of Systems - Review of Systems Systems not reviewed;Unavailable: Altered Mental Status Critical Care Progress Note - Extremities/Vascular Does the Patient have a Central Venous Catheter?: No Does the Patient need a Central Venous Catheter?: No Does the Patient have a Otero Catheter?: Yes Does the Patient need a Otero Catheter?: Yes - Prophylaxis GI Prophylaxis GI: PPI - Prophylaxis DVT Prophylaxis DVT: Terri, RHETTs Assessment/Plan - Assessment and Plan (Free Text) Assessment: 87yo Male with a PMH of prior CVA, progressive dementia, dysphagia s/p PEG tube placement, COPD and recent admission for pneumonia who presented to [facility] with altered mental status and found to be in severe sepsis likely 2/2 UTI. Code stroke was called but later cancelled due to negative CT. R Subclavian TLC was placed in ED. CXR showed moderate right hydro-pneumothorax. TLC was removed and patient was transferred to ICU. R sided chest tube was placed this morning and around 1 L serosanguinous fluid was expressed. Post-procedure CXR shows interval improvement. WBC continues to trend up despite empiric broad-coverage antibiotic coverage. Plan: Neuro: - at baseline currently - will monitor for any signs of mental status changes - prior CT's of head have shown numerous basal ganglia, thalamic and b/l pontine lacunar infarcts - maintain normothermia - orient patient and allow family members comfort when visiting - Aricept HS - patient remains DNR/DNI at this point per family Cardio: - BP stable off fluids or pressors - monitor VS for any changes - maintain BP around 120-150/70-90 - cont home Lipitor, Lopressor - DVT ppx - echo ordered Pulm: - s/p R chest tube confirmed location by CXR, on gentle suction, draining serosanguinous fluid - pleural fluid sent for analysis including cultures, cytology, LDH, protein, glucose, pH, TG - no signs of pneuomnia on CXR - O2 Sat is satisfactory on non-rebreather mask, will try to place on NC today - monitor O2 sat and VS - maintain low threshold for intubating the patient given AMS if unable to protect airway - Pulm consulted, appreciate the recs - Surgery consulted for chest tube, appreciate the recs GI: - PEG placement on last admission due to dysphagia (unclear if from CVA or progressive dementia) - cont tube feeds - GI ppx - c.diff negative; ova and parasites analysis sent Renal: - otero catheter in place - monitor I/O - renal function stable - monitor for electrolyte abnormalities and manage appropriately Heme/Onc: - stool occult blood + - monitor for changes in H/H - H/H stable at this time ID: - blood cultures negative x24 hrs - urine culture pending - cdiff negative - pleural fluid cultures and analysis ordered - procal 90 - patient on Vancomycin, Meropenem, Flagyl and - tamiflu was d/c; flu was negative - Lactate is downtrending; patient hasn't had fever in more than 24 hrs - cont to monitor for signs of worsening infection - maintain normothermia - Tylenol PRN fevers Endo: - maintain euglycemia - A1C and TSH were WNL Diet: tube feeds, NPO GI ppx: PTX DVT ppx: Lovenox and SCDs Dispo: Patient currently stable; will discuss LTAC with SW and family moving forward for ocean transportation intermediary placement. will also continue to discuss advanced directives with family. Patient was seen, examined and discussed with attending, Dr. Naila Chahal PGY1 Pager # [phone] <Bucky Yoo - Last Filed: 08/06/17 11:34> CCU Objective - Vital Signs / Intake & Output Vital Signs (Last 4 hours): Vital Signs Temp Pulse Resp BP Pulse Ox 08/06/17 10:00 98.4 F 77 19 120/49 L 99 08/06/17 09:50 98.4 F 81 16 99 08/06/17 09:40 98.4 F 77 21 100 08/06/17 09:30 98.4 F 76 15 121/49 L 99 08/06/17 09:20 98.2 F 80 19 99 08/06/17 09:10 98.4 F 80 22 99 08/06/17 09:00 98.4 F 95 H 31 H 121/64 98 08/06/17 08:54 98.2 F 86 99 08/06/17 08:50 98.2 F 76 26 H 99 08/06/17 08:40 98.1 F 84 20 97 08/06/17 08:30 98.1 F 81 30 H 131/59 L 99 08/06/17 08:22 97.9 F 89 22 129/58 L 100 08/06/17 08:20 97.9 F 84 16 133/50 L 100 08/06/17 08:18 97.9 F 82 16 130/43 L 99 08/06/17 08:16 97.9 F 82 16 151/71 H 100 08/06/17 08:14 97.9 F 85 16 132/63 100 08/06/17 08:12 97.9 F 83 21 139/67 100 08/06/17 08:10 97.9 F 81 20 139/58 L 100 08/06/17 08:08 97.9 F 83 24 152/49 H 99 08/06/17 08:06 97.9 F 84 29 H 134/67 100 08/06/17 08:04 97.9 F 83 31 H 160/71 H 99 08/06/17 08:02 97.9 F 80 24 152/72 H 99 08/06/17 08:00 97.9 F 81 20 144/71 98 08/06/17 07:58 97.9 F 83 18 136/70 98 08/06/17 07:56 97.9 F 83 23 153/71 H 97 08/06/17 07:54 97.9 F 82 22 127/40 L 97 08/06/17 07:51 97.9 F 80 16 116/49 L 96 08/06/17 07:50 97.9 F 82 18 96 08/06/17 07:45 97.9 F 79 17 120/73 96 08/06/17 07:40 97.9 F 83 16 96 08/06/17 07:31 140/61 08/06/17 07:30 97.9 F 81 17 97 Intake and Output (Last 8hrs): Intake & Output 08/05/17 08/06/17 08/06/17 22:59 06:59 14:59 Intake Total 300 Output Total 402 Balance -102 Intake: IV 300 Right Wrist 300 Output: Urine 400 Urethral (Otero) 400 Stool 2 - Medications Active Medications: Active Medications Generic Name Dose Route Start Last Admin Trade Name Freq PRN Reason Stop Dose Admin Acetaminophen 650 mg 08/05/17 09:08 Tylenol 650 Mg Supp RC Q6H PRN Pain, Mild (1-3) Atorvastatin Calcium 40 mg 08/05/17 17:00 08/05/17 17:32 Lipitor PO Not Given DIN RYLIE Donepezil HCl 5 mg 08/05/17 22:00 08/05/17 21:20 Aricept PO 5 mg HS RYLIE Administration Enoxaparin Sodium 40 mg 08/05/17 10:00 08/06/17 11:19 Lovenox SC 40 mg DAILY RYLIE Administration Protocol Vancomycin HCl 1 gm in 250 mls @ 167 mls/hr 08/05/17 10:00 08/06/17 09:02 Vancomycin 1gm IVPB 167 mls/hr DAILY RYLIE Administration Meropenem/Sodium Chloride 1 gm in 100 mls @ 100 mls/hr 08/05/17 10:15 08:58 Meropenem 1g/Ns 100ml Ivpb IVPB 100 mls/hr Q12 RYLIE Administration Protocol Metronidazole 500 mg in 100 mls @ 100 mls/hr 08/05/17 22:00 08/06/17 05:30 Flagyl IVPB 100 mls/hr Q8 RYLIE Administration Protocol Metoprolol Tartrate 25 mg 08/05/17 10:00 08/05/17 17:32 Lopressor PO Not Given BID RYLIE Dutasteride [Avodart 0.5 mg 08/05/17 10:00 08/05/17 10:42 ] 0.5 Mg (Home Med PO Not Given ) DAILY RYLIE Pantoprazole Sodium 40 mg 08/06/17 09:15 08/06/17 11:19 Protonix Susp PO 40 mg ACB RYLIE Administration - Patient Studies Lab Studies: Microbiology Studies 08/05/17 01:50 C. difficile Antigen & Toxin A,B (M - Final Stool Lab Studies 02/25/18 02/25/18 02/25/18 Range/Units 09:13 09:00 06:15 WBC (4.5-11.0) 10^3/ul RBC (3.5-6.1) 10^6/uL Hgb (14.0-18.0) g/dL Hct (42.0-52.0) % MCV (80.0-105.0) fl MCH (25.0-35.0) pg MCHC (31.0-37.0) g/dl RDW (11.5-14.5) % Plt Count (120.0-450.0) 10^3/uL MPV (7.0-11.0) fl Gran % (50.0-68.0) % Lymph % (Auto) (22.0-35.0) % Dare % (Auto) (1.0-6.0) % Eos % (Auto) (1.5-5.0) % Baso % (Auto) (0.0-3.0) % Gran # (1.4-6.5) Lymph # (Auto) (1.2-3.4) Dare # (Auto) (0.1-0.6) Eos # (Auto) (0.0-0.7) Baso # (Auto) (0.0-2.0) K/mm3 pCO2 35 (35-45) mm/Hg pO2 80.0 (80-100) mm/Hg HCO3 22.7 (21-28) mmol/L ABG pH 7.42 (7.35-7.45) ABG Total CO2 23.8 (22-28) mmol.L ABG O2 Saturation 99.0 H (95-98) % ABG Base Excess -1.3 (-2.0-3.0) mmol/L ABG Potassium 3.6 (3.6-5.2) mmol/L Sodium 142.0 (132-148) mmol/L Chloride 115.0 H (98-107) mmol/L Glucose 112 H (75-110) mg/dl Lactate 0.9 (0.7-2.1) mmol/L FiO2 28.0 % Potassium (3.6-5.0) mmol/L Carbon Dioxide (21-33) mmol/L Anion Gap (10-20) BUN (7-21) mg/dL Creatinine (0.8-1.5) mg/dl Est GFR ( Amer) Est GFR (Non-Af Amer) POC Glucose (mg/dL) (65-110) mg/dL Random Glucose (70-110) mg/dL Calcium (8.4-10.5) mg/dL Phosphorus (2.5-4.5) mg/dL Magnesium (1.7-2.2) mg/dL Total Bilirubin (0.2-1.3) mg/dL AST (17-59) U/L ALT (7-56) U/L Alkaline Phosphatase (38-126) U/L Troponin I ng/mL Total Protein (5.8-8.3) g/dL Albumin (3.0-4.8) g/dL Globulin gm/dL Albumin/Globulin Ratio (1.1-1.8) Procalcitonin (0.19-0.49) NG/ML Arterial Blood Potassium 3.6 (3.6-5.2) mmol/L Pleural pH 8.5 Stool Occult Blood Positive H (NEGATIVE) Influenza Typ A,B (EIA) (NEGATIVE) 08/06/17 08/06/17 08/05/17 Range/Units 05:00 05:00 14:19 WBC 31.4 H* (4.5-11.0) 10^3/ul RBC 3.84 (3.5-6.1) 10^6/uL Hgb 11.1 L D (14.0-18.0) g/dL Hct 32.9 L (42.0-52.0) % MCV 85.7 (80.0-105.0) fl MCH 28.9 (25.0-35.0) pg MCHC 33.7 (31.0-37.0) g/dl RDW 15.5 H (11.5-14.5) % Plt Count 187 (120.0-450.0) 10^3/uL MPV 11.0 (7.0-11.0) fl Gran % 89.7 H (50.0-68.0) % Lymph % (Auto) 5.6 L (22.0-35.0) % Dare % (Auto) 4.6 (1.0-6.0) % Eos % (Auto) 0.0 L (1.5-5.0) % Baso % (Auto) 0.1 (0.0-3.0) % Gran # 28.13 H (1.4-6.5) Lymph # (Auto) 1.7 (1.2-3.4) Dare # (Auto) 1.5 H (0.1-0.6) Eos # (Auto) 0.0 (0.0-0.7) Baso # (Auto) 0.02 (0.0-2.0) K/mm3 pCO2 32 L (35-45) mm/Hg pO2 57.0 L (80-100) mm/Hg HCO3 21.2 (21-28) mmol/L ABG pH 7.43 (7.35-7.45) ABG Total CO2 22.2 (22-28) mmol.L ABG O2 Saturation 96.5 (95-98) % ABG Base Excess -2.3 L (-2.0-3.0) mmol/L ABG Potassium 3.6 (3.6-5.2) mmol/L Sodium 145 139.0 (132-148) mmol/L Chloride 110 H 111.0 H (98-107) mmol/L Glucose 157 H (75-110) mg/dl Lactate 1.7 (0.7-2.1) mmol/L FiO2 32.0 % Potassium 3.9 (3.6-5.0) mmol/L Carbon Dioxide 24 (21-33) mmol/L Anion Gap 15 (10-20) BUN 27 H (7-21) mg/dL Creatinine 1.2 (0.8-1.5) mg/dl Est GFR ( Amer) > 60 Est GFR (Non-Af Amer) 57 POC Glucose (mg/dL) (65-110) mg/dL Random Glucose 112 H (70-110) mg/dL Calcium 8.4 (8.4-10.5) mg/dL Phosphorus 3.1 (2.5-4.5) mg/dL Magnesium 2.1 (1.7-2.2) mg/dL Total Bilirubin 1.2 (0.2-1.3) mg/dL AST 95 H D (17-59) U/L ALT 86 H (7-56) U/L Alkaline Phosphatase 84 (38-126) U/L Troponin I ng/mL Total Protein 6.1 (5.8-8.3) g/dL Albumin 3.0 (3.0-4.8) g/dL Globulin 3.1 gm/dL Albumin/Globulin Ratio 1.0 L (1.1-1.8) Procalcitonin (0.19-0.49) NG/ML Arterial Blood Potassium 3.6 (3.6-5.2) mmol/L Pleural pH Stool Occult Blood (NEGATIVE) Influenza Typ A,B (EIA) (NEGATIVE) 08/05/17 08/05/17 08/05/17 Range/Units 13:58 13:10 13:10 WBC (4.5-11.0) 10^3/ul RBC (3.5-6.1) 10^6/uL Hgb (14.0-18.0) g/dL Hct (42.0-52.0) % MCV (80.0-105.0) fl MCH (25.0-35.0) pg MCHC (31.0-37.0) g/dl RDW (11.5-14.5) % Plt Count (120.0-450.0) 10^3/uL MPV (7.0-11.0) fl Gran % (50.0-68.0) % Lymph % (Auto) (22.0-35.0) % Dare % (Auto) (1.0-6.0) % Eos % (Auto) (1.5-5.0) % Baso % (Auto) (0.0-3.0) % Gran # (1.4-6.5) Lymph # (Auto) (1.2-3.4) Dare # (Auto) (0.1-0.6) Eos # (Auto) (0.0-0.7) Baso # (Auto) (0.0-2.0) K/mm3 pCO2 (35-45) mm/Hg pO2 (80-100) mm/Hg HCO3 (21-28) mmol/L ABG pH (7.35-7.45) ABG Total CO2 (22-28) mmol.L ABG O2 Saturation (95-98) % ABG Base Excess (-2.0-3.0) mmol/L ABG Potassium (3.6-5.2) mmol/L Sodium (132-148) mmol/L Chloride (98-107) mmol/L Glucose (75-110) mg/dl Lactate (0.7-2.1) mmol/L FiO2 % Potassium (3.6-5.0) mmol/L Carbon Dioxide (21-33) mmol/L Anion Gap (10-20) BUN (7-21) mg/dL Creatinine (0.8-1.5) mg/dl Est GFR ( Amer) Est GFR (Non-Af Amer) POC Glucose (mg/dL) 152 H (65-110) mg/dL Random Glucose (70-110) mg/dL Calcium (8.4-10.5) mg/dL Phosphorus (2.5-4.5) mg/dL Magnesium (1.7-2.2) mg/dL Total Bilirubin (0.2-1.3) mg/dL AST (17-59) U/L ALT (7-56) U/L Alkaline Phosphatase (38-126) U/L Troponin I 0.02 D ng/mL Total Protein (5.8-8.3) g/dL Albumin (3.0-4.8) g/dL Globulin gm/dL Albumin/Globulin Ratio (1.1-1.8) Procalcitonin 90.35 H (0.19-0.49) NG/ML Arterial Blood Potassium (3.6-5.2) mmol/L Pleural pH Stool Occult Blood (NEGATIVE) Influenza Typ A,B (EIA) (NEGATIVE) 08/05/17 Range/Units 10:11 WBC (4.5-11.0) 10^3/ul RBC (3.5-6.1) 10^6/uL Hgb (14.0-18.0) g/dL Hct (42.0-52.0) % MCV (80.0-105.0) fl MCH (25.0-35.0) pg MCHC (31.0-37.0) g/dl RDW (11.5-14.5) % Plt Count (120.0-450.0) 10^3/uL MPV (7.0-11.0) fl Gran % (50.0-68.0) % Lymph % (Auto) (22.0-35.0) % Dare % (Auto) (1.0-6.0) % Eos % (Auto) (1.5-5.0) % Baso % (Auto) (0.0-3.0) % Gran # (1.4-6.5) Lymph # (Auto) (1.2-3.4) Dare # (Auto) (0.1-0.6) Eos # (Auto) (0.0-0.7) Baso # (Auto) (0.0-2.0) K/mm3 pCO2 (35-45) mm/Hg pO2 (80-100) mm/Hg HCO3 (21-28) mmol/L ABG pH (7.35-7.45) ABG Total CO2 (22-28) mmol.L ABG O2 Saturation (95-98) % ABG Base Excess (-2.0-3.0) mmol/L ABG Potassium (3.6-5.2) mmol/L Sodium (132-148) mmol/L Chloride (98-107) mmol/L Glucose (75-110) mg/dl Lactate (0.7-2.1) mmol/L FiO2 % Potassium (3.6-5.0) mmol/L Carbon Dioxide (21-33) mmol/L Anion Gap (10-20) BUN (7-21) mg/dL Creatinine (0.8-1.5) mg/dl Est GFR ( Amer) Est GFR (Non-Af Amer) POC Glucose (mg/dL) (65-110) mg/dL Random Glucose (70-110) mg/dL Calcium (8.4-10.5) mg/dL Phosphorus (2.5-4.5) mg/dL Magnesium (1.7-2.2) mg/dL Total Bilirubin (0.2-1.3) mg/dL AST (17-59) U/L ALT (7-56) U/L Alkaline Phosphatase (38-126) U/L Troponin I ng/mL Total Protein (5.8-8.3) g/dL Albumin (3.0-4.8) g/dL Globulin gm/dL Albumin/Globulin Ratio (1.1-1.8) Procalcitonin (0.19-0.49) NG/ML Arterial Blood Potassium (3.6-5.2) mmol/L Pleural pH Stool Occult Blood (NEGATIVE) Influenza Typ A,B (EIA) Negative for flu a/b (NEGATIVE) Laboratory Results - last 24 hr 08/05/17 08/05/17 08/05/17 10:11 13:10 13:10 WBC RBC Hgb Hct MCV MCH MCHC RDW Plt Count MPV Gran % Lymph % (Auto) Dare % (Auto) Eos % (Auto) Baso % (Auto) Gran # Lymph # (Auto) Dare # (Auto) Eos # (Auto) Baso # (Auto) pCO2 pO2 HCO3 ABG pH ABG Total CO2 ABG O2 Saturation ABG Base Excess ABG Potassium Sodium Chloride Glucose Lactate FiO2 Potassium Carbon Dioxide Anion Gap BUN Creatinine Est GFR ( Amer) Est GFR (Non-Af Amer) POC Glucose (mg/dL) Random Glucose Calcium Phosphorus Magnesium Total Bilirubin AST ALT Alkaline Phosphatase Troponin I 0.02 D Total Protein Albumin Globulin Albumin/Globulin Ratio Procalcitonin 90.35 H Arterial Blood Potassium Pleural pH Stool Occult Blood Influenza Typ A,B (EIA) Negative for flu a/b 08/05/17 08/05/17 08/06/17 13:58 14:19 05:00 WBC 31.4 H* RBC 3.84 Hgb 11.1 L D Hct 32.9 L MCV 85.7 MCH 28.9 MCHC 33.7 RDW 15.5 H Plt Count 187 MPV 11.0 Gran % 89.7 H Lymph % (Auto) 5.6 L Dare % (Auto) 4.6 Eos % (Auto) 0.0 L Baso % (Auto) 0.1 Gran # 28.13 H Lymph # (Auto) 1.7 Dare # (Auto) 1.5 H Eos # (Auto) 0.0 Baso # (Auto) 0.02 pCO2 32 L pO2 57.0 L HCO3 21.2 ABG pH 7.43 ABG Total CO2 22.2 ABG O2 Saturation 96.5 ABG Base Excess -2.3 L ABG Potassium 3.6 Sodium 139.0 Chloride 111.0 H Glucose 157 H Lactate 1.7 FiO2 32.0 Potassium Carbon Dioxide Anion Gap BUN Creatinine Est GFR ( Amer) Est GFR (Non-Af Amer) POC Glucose (mg/dL) 152 H Random Glucose Calcium Phosphorus Magnesium Total Bilirubin AST ALT Alkaline Phosphatase Troponin I Total Protein Albumin Globulin Albumin/Globulin Ratio Procalcitonin Arterial Blood Potassium 3.6 Pleural pH Stool Occult Blood Influenza Typ A,B (EIA) 08/06/17 08/06/17 08/06/17 05:00 06:15 09:00 WBC RBC Hgb Hct MCV MCH MCHC RDW Plt Count MPV Gran % Lymph % (Auto) Dare % (Auto) Eos % (Auto) Baso % (Auto) Gran # Lymph # (Auto) Dare # (Auto) Eos # (Auto) Baso # (Auto) pCO2 pO2 HCO3 ABG pH ABG Total CO2 ABG O2 Saturation ABG Base Excess ABG Potassium Sodium 145 Chloride 110 H Glucose Lactate FiO2 Potassium 3.9 Carbon Dioxide 24 Anion Gap 15 BUN 27 H Creatinine 1.2 Est GFR ( Amer) > 60 Est GFR (Non-Af Amer) 57 POC Glucose (mg/dL) Random Glucose 112 H Calcium 8.4 Phosphorus 3.1 Magnesium 2.1 Total Bilirubin 1.2 AST 95 H D ALT 86 H Alkaline Phosphatase 84 Troponin I Total Protein 6.1 Albumin 3.0 Globulin 3.1 Albumin/Globulin Ratio 1.0 L Procalcitonin Arterial Blood Potassium Pleural pH 8.5 Stool Occult Blood Positive H Influenza Typ A,B (EIA) 08/06/17 09:13 WBC RBC Hgb Hct MCV MCH MCHC RDW Plt Count MPV Gran % Lymph % (Auto) Dare % (Auto) Eos % (Auto) Baso % (Auto) Gran # Lymph # (Auto) Dare # (Auto) Eos # (Auto) Baso # (Auto) pCO2 35 pO2 80.0 HCO3 22.7 ABG pH 7.42 ABG Total CO2 23.8 ABG O2 Saturation 99.0 H ABG Base Excess -1.3 ABG Potassium 3.6 Sodium 142.0 Chloride 115.0 H Glucose 112 H Lactate 0.9 FiO2 28.0 Potassium Carbon Dioxide Anion Gap BUN Creatinine Est GFR ( Amer) Est GFR (Non-Af Amer) POC Glucose (mg/dL) Random Glucose Calcium Phosphorus Magnesium Total Bilirubin AST ALT Alkaline Phosphatase Troponin I Total Protein Albumin Globulin Albumin/Globulin Ratio Procalcitonin Arterial Blood Potassium 3.6 Pleural pH Stool Occult Blood Influenza Typ A,B (EIA) Attending/Attestation - Attestation I have personally seen and examined this patient.: Yes I have fully participated in the care of the patient.: Yes I have reviewed all pertinent clinical information: Yes Notes (Text): 08/06/17 11:30 87 yo with advanced dementia, s/p CVA, peg tube 2 weeks prior to admission, initially presented with UTI/sepsis, treated with abx, now was found to have large hydropneumothorax on the right-->s/p chest tube/on suction-->with full lung re-expansion. wbc rising on broad spectrum abx and ID service following him. C.diff is negative. Low threshold for intubation, but for now mental status at baseline and adequate ventilatory and gas exchange parameters. ccm time 40 min
--- NOTE | 2017-08-06 08:57 | RAD ---
HISTORY: R Hydropneumo. interval changes COMPARISON: 08/05/2017 at 6:16 p.m.. FINDINGS: LUNGS: The left lung is well inflated and clear. PLEURA: There is a [id number] right hydro pneumothorax with compressive atelectasis of the right lung and mild shift of mediastinal to the left. CARDIOVASCULAR: Normal. OSSEOUS STRUCTURES: No significant abnormalities. VISUALIZED UPPER ABDOMEN: Normal. OTHER FINDINGS: None. IMPRESSION: No change in moderate to large right hydro pneumothorax.
[2017-08-06] MEDS: Meropenem 1g/NS 100mL IVPB 1 GM/100 ML PIGGYBACK IVPB SCH ×2 (08:58→21:09)
[2017-08-06] MEDS: Vancomycin 1gm in NS 250ml IVPB SCH (09:02)
--- NOTE | 2017-08-06 09:02 | RAD ---
HISTORY: interval changes COMPARISON: 08/05/2017. FINDINGS: LUNGS: The left lung is well inflated and clear. PLEURA: There is a large right hydro pneumothorax with compressive atelectasis of the right lung and mild shift of mediastinum to the left. CARDIOVASCULAR: Normal. OSSEOUS STRUCTURES: No significant abnormalities. VISUALIZED UPPER ABDOMEN: Normal. OTHER FINDINGS: None. IMPRESSION: No change in large right hydro pneumothorax.
[2017-08-06 09:16] LABS: ARTERIAL BLOOD GAS HCO3 22.7 mmol/L (21-28); ARTERIAL BLOOD GAS PCO2 35 mm/Hg (35-45); ARTERIAL BLOOD GAS PH 7.42 (7.35-7.45); ARTERIAL BLOOD GAS TCO2 23.8 mmol.L (22-28)
--- NOTE | 2017-08-06 09:50 | CP.PCM.PN ---
Subjective - Date & Time of Evaluation Date of Evaluation: 08/06/17 Time of Evaluation: 07:00 - Subjective Subjective: Surgery Progress note. Dr. Vizcaino Pt seen and examined at bedside. Patient is alert and responding to questions by nodding. Oriented to person. Does report increased SOB. Denies CP. No N/V. No CP. No Abd pain. No Acute distress Objective - Vital Signs/Intake and Output Vital Signs (last 24 hours): Temp Pulse Resp BP Pulse Ox 98.1 F 84 20 131/59 L 97 08/06/17 08:40 08/06/17 08:40 08/06/17 08:40 08/06/17 08:30 08/06/17 08:40 Intake and Output: 08/06/17 08/06/17 06:59 18:59 Intake Total 300 Output Total 402 Balance -102 - Medications Medications: Current Medications Acetaminophen (Tylenol 650 Mg Supp) 650 mg RC Q6H PRN PRN Reason: Pain, Mild (1-3) Atorvastatin Calcium (Lipitor) 40 mg PO DIN [facility] Last Admin: 08/05/17 17:32 Dose: Not Given Donepezil HCl (Aricept) 5 mg PO HS [facility] Last Admin: 08/05/17 21:20 Dose: 5 mg Enoxaparin Sodium (Lovenox) 40 mg SC DAILY [facility] PRN Reason: Protocol Last Admin: 08/05/17 10:42 Dose: 40 mg Vancomycin HCl (Vancomycin 1gm) 1 gm in 250 mls @ 167 mls/hr IVPB DAILY [facility] Last Admin: 08/06/17 09:02 Dose: 167 mls/hr Meropenem/Sodium Chloride (Meropenem 1g/Ns 100ml Ivpb) 1 gm in 100 mls @ 100 mls/hr IVPB Q12 [facility] PRN Reason: Protocol Last Admin: 08/06/17 08:58 Dose: 100 mls/hr Metronidazole (Flagyl) 500 mg in 100 mls @ 100 mls/hr IVPB Q8 [facility] PRN Reason: Protocol Last Admin: 08/06/17 05:30 Dose: 100 mls/hr Metoprolol Tartrate (Lopressor) 25 mg PO BID [facility] Last Admin: 08/05/17 17:32 Dose: Not Given Dutasteride [Avodart ] 0.5 Mg (Home Med ) 0.5 mg PO DAILY [facility] Last Admin: 08/05/17 10:42 Dose: Not Given Pantoprazole Sodium (Protonix Susp) 40 mg PO ACB [facility] - Labs Labs: 08/06/17 05:00 08/06/17 05:00 PT 12.9 SECONDS (9.4-12.5) H 08/04/17 20:57 INR 1.13 (0.93-1.08) H 08/04/17 20:57 APTT 32.2 Seconds (25.1-36.5) 08/04/17 20:57 - Constitutional Appears: Non-toxic, Chronically Ill - Head Exam Head Exam: ATRAUMATIC, NORMAL INSPECTION, NORMOCEPHALIC - Eye Exam Eye Exam: EOMI, Normal appearance. absent: Scleral icterus - ENT Exam ENT Exam: Mucous Membranes Moist - Respiratory Exam Additional comments: Decreased breath sounds right lung base. Crackles heard left chest base. Diffuse expiratory wheezes. No accessory muscle use. - Cardiovascular Exam Cardiovascular Exam: absent: JVD - GI/Abdominal Exam GI & Abdominal Exam: Soft. absent: Distended, Firm, Guarding, Tenderness - Extremities Exam Extremities Exam: Normal Inspection. absent: Calf Tenderness - Neurological Exam Neurological Exam: Alert, Awake Additional comments: Oriented to person - Psychiatric Exam Psychiatric exam: Normal Affect, Normal Mood - Skin Skin Exam: Dry, Intact, Normal Color, Warm Assessment and Plan - Assessment and Plan (Free Text) Assessment: 87yo M Right Hydropneumothorax. In ICU for sepsis, likely Urosepsis. Plan: - We will place Right chest tube at bedside today - Family notified and agree with plan - continue daily CXR - Chest tube to suction - Pain management - May resume tube feeds Further recs as per Dr. Carrillo Cavanaugh PGY1 surgery pager: [phone]
--- NOTE | 2017-08-06 09:59 | PCM.PROC ---
Procedures Attestation:: I certify that I have explained the specified Operation(s) or Procedure(s), risks, benefits and reasonable alternatives to the Patient and/or other person responsible. The opportunity was given to ask questions and all questions answered - Chest Tube Chest Tube Location: Mid-Axillary Right Size of Tube (cm): 28 (28F) Chest Tube Procedure: Chlorhexidine Tube Sutured to Skin: Yes Sterile Dressing Applied: Yes Anesthesia: Lidocaine 1% Volume Anesthetic (mls): 10 Incision Made With: other (#15 blade) Post Procedure: sutured to skin, sterile dressing applied, air occlusive dressing Wells of Air Sharkey: Yes Tube Drainage: fluid, other (Approx 1.2L of Serrosang fluid ) Amount of Initial Drainage: 1,200 Post Procedure CXR?: Yes Patient Tolerated Procedure: Yes Complications: pain Progress: Procedure consent obtained from Daughter, Savannah Harrisno last night. Savannah Harrison notified via telephone prior to beginning the procedure this morning. Pre procedure vitals stable. BP: 140/60 O2 Sat 94-95% Time out performed with nursing staff present in the room throughout the entire procedure. Site verified. Laterality verified. Patient positioned in the supine position, with right arm abducted up above the head for adequate exposure. Patient prepped with chlorhexidine and draped in the usual sterile fashion. 10cc of 1% lidocaine used for local anesthesia. Approximately 2cm incision made at the level of the nipple on the right side. Large curved Whitney clamp used for blunt dissection down to and above the 5th rib. Pleural cavity entered. Large gush of air and serosang fluid expressed. 28F chest tube placed apically and posteriorly. Sutured to the skin at 13cm. 2 sutures to the tube. 1 suture to the skin to approximate skin. Sterile occlusive dressing applied: Xeroform and gauze. Chest tube attached to pleurovac , approximately 1.2L of serosang fluid removed immediately. Sent fluid for analysis. Silk and 3M tape used to secure dressing and chest tube. Pleurovac set up to wall suction. Patient tolerated procedure well. Does report pain at the site. Reports much improvement in breathing. Post Procedure vitals stable O2 Sat improved to 99-100% Alejo Cavanaugh PGY1 surgery pager: [phone]
[2017-08-06] MEDS ORDERED: Vancomycin 25 MG/ML PO SCH (10:00)
[2017-08-06] MEDS: Enoxaparin 40 mg Syringe SC SCH (11:19)
[2017-08-06] MEDS: Pantoprazole 40 mg Susp UD PO SCH (11:19)
--- NOTE | 2017-08-06 11:55 | CP.PCM.PN ---
Subjective - Date & Time of Evaluation Date of Evaluation: 08/06/17 Time of Evaluation: 11:40 - Subjective Subjective: Patient is weak but not in distress - noted patient to have developed right sided pneumohydrothorax and subclavian central venous catheter was removed yesterday. He also has typhlitis as seen on the CT A/P done yesterday. He has no fevers. Chest tube has been placed this morning. Objective - Vital Signs/Intake and Output Vital Signs (last 24 hours): Temp Pulse Resp BP Pulse Ox 97.9 F 82 16 135/62 96 08/06/17 06:50 08/06/17 06:50 08/06/17 06:50 08/06/17 05:45 08/06/17 06:50 - Medications Medications: Current Medications Acetaminophen (Tylenol 650 Mg Supp) 650 mg RC Q6H PRN PRN Reason: Pain, Mild (1-3) Atorvastatin Calcium (Lipitor) 40 mg PO DIN [facility] Last Admin: 08/05/17 17:32 Dose: Not Given Donepezil HCl (Aricept) 5 mg PO HS [facility] Last Admin: 08/05/17 21:20 Dose: 5 mg Enoxaparin Sodium (Lovenox) 40 mg SC DAILY [facility] PRN Reason: Protocol Last Admin: 08/05/17 10:42 Dose: 40 mg Vancomycin HCl (Vancomycin 1gm) 1 gm in 250 mls @ 167 mls/hr IVPB DAILY [facility] Last Admin: 08/05/17 11:56 Dose: 167 mls/hr Meropenem/Sodium Chloride (Meropenem 1g/Ns 100ml Ivpb) 1 gm in 100 mls @ 100 mls/hr IVPB Q12 [facility] PRN Reason: Protocol Last Admin: 08/05/17 21:19 Dose: 100 mls/hr Metronidazole (Flagyl) 500 mg in 100 mls @ 100 mls/hr IVPB Q8 [facility] PRN Reason: Protocol Last Admin: 08/06/17 05:30 Dose: 100 mls/hr Metoprolol Tartrate (Lopressor) 25 mg PO BID [facility] Last Admin: 08/05/17 17:32 Dose: Not Given Dutasteride [Avodart ] 0.5 Mg (Home Med ) 0.5 mg PO DAILY [facility] Last Admin: 08/05/17 10:42 Dose: Not Given Oseltamivir Phosphate (Tamiflu Susp) 30 mg PO DAILY [facility] PRN Reason: Protocol Last Admin: 08/05/17 10:48 Dose: 30 mg Pantoprazole Sodium (Protonix Ec Tab) 40 mg PO ACB [facility] Last Admin: 08/05/17 10:42 Dose: Not Given - Labs Labs: 08/06/17 05:00 08/06/17 05:00 PT 12.9 SECONDS (9.4-12.5) H 08/04/17 20:57 INR 1.13 (0.93-1.08) H 08/04/17 20:57 APTT 32.2 Seconds (25.1-36.5) 08/04/17 20:57 - Constitutional Appears: Chronically Ill - Head Exam Head Exam: NORMAL INSPECTION - ENT Exam ENT Exam: Mucous Membranes Moist - Neck Exam Neck Exam: absent: Meningismus - Respiratory Exam Respiratory Exam: Decreased Breath Sounds Additional comments: right sided chest tube in place - Cardiovascular Exam Cardiovascular Exam: +S1, +S2 - GI/Abdominal Exam GI & Abdominal Exam: Soft, Tenderness (on the right lower quadrant area). absent: Guarding, Rigid, Rebound Assessment and Plan - Assessment and Plan (Free Text) Plan: Assessment consider sepsis due to intra-abdominal infection with typhlitis /cecitis in this patient who developed right sided pneumohydrothorax S/P right sided chest tube placement history of severe sepsis with acute renal failure due to HCAP TIA COPD dementia HTN osteoarthritis chronic CHF cataracts Plan continue Vancomycin and Merrem day 2; blood cx are negative; Flagyl has been started by primary team but may d/c it reviewed CT scan of the abdomen and pelvis which shows typhlitis will continue to monitor clinically
[2017-08-06] MEDS ORDERED: Lactated Ringer's 1,000 ML IV ONE (14:51)
[2017-08-06] MEDS: Acetylcysteine 20% Inhal Soln (4ml) IH PRN (18:32)
[2017-08-06] MEDS: Levalbuterol 0.63 MG/3 ML Inhal Soln UD IH PRN (18:32)
--- NOTE | 2017-08-07 04:19 | PN ---
DATE: 08/06/2017 SUBJECTIVE: The patient in ICU. He is lying supine. Right side chest tube connected to suction. He had 2 L out. Patient is comfortable. Resident on the bedside. Patient seems stable. PHYSICAL EXAMINATION: As follows; VITAL SIGNS: Temperature 98, heart rate 75, blood pressure 111/44, respirations 18, saturation 98%. HEAD AND NECK: Normal. No JVD. No thyromegaly. CHEST: Diminished, more on the right than left. Chest tube on the right side is connected to the suction device. CARDIAC: First sound and second sound normal. ABDOMEN: Soft and nontender. EXTREMITIES: No edema. NEUROLOGIC: Normal. He has moved extremities and he seems opening his eyes and responds to calling his name. LABORATORY DATA: Shows white count 31.4, hemoglobin 11.1, hematocrit 32.9, platelets 187. Chemistry: Sodium 145, potassium 3.9, chloride 110, bicarb 24, BUN 27, creatinine 1.2, blood sugar 112. Liver function test is normal. Liver enzymes; AST and ALT are elevated. Alk phos is normal. Total bilirubin is normal. Patient has procalcitonin which is . IMPRESSION: 1. Severe sepsis. Continue IV antibiotics, meropenem and vancomycin. Etiology is intraabdominal versus urinary tract infections complicated with hydropneumothorax. Consultation has been obtained, which shows gram negative raymond in the urine. Blood cultures x2 is negative. Continue current therapy. We will follow up clinically. Patient also has Clostridium difficile negative. 2. Hydropneumothorax. Continue tube suctions and followup chest x-rays, seems reexpanded lung. Continue followup with surgical team. 3. Intraabdominal infections/cecal infection, get GI consult Dr. Valerio, surgical consult Dr. Morgan Vizcaino and follow up clinically. 4. Hepatitis. Elevated liver function test, probably medication related. Continue current therapy. 5. Chronic obstructive pulmonary disease. Continue Xopenex four times a day. Continue Mucomyst. PLAN: Continue current therapy and we will follow up clinically. CURRENT MEDICATIONS: Mucomyst, Aricept, Avodart, Flagyl, Lipitor, Lopressor, Lovenox, ibuprofen p.r.n., Protonix, Tylenol, vancomycin, and Xopenex. Patient is DNI. However, the code will be changed, today the code changed now into full code. Patient is in the ICU now. We will continue current antibiotics. Follow up his ID consult, GI consult. Cody Aguilar MD
[2017-08-07] MEDS: metroNIDAZOLE IV 500 mg/100 ml 500 MG/100 ML BAG IVPB SCH (05:03)
[2017-08-07 05:40] LABS: HEMOGLOBIN 10.3 g/dL (14.0-18.0); MEAN CELL VOLUME 86.5 fl (80.0-105.0); MEAN CORPUSCULAR HEMOGLOBIN 28.5 pg (25.0-35.0); MEAN CORPUSCULAR HGB CONC 32.9 g/dl (31.0-37.0); MEAN PLATELET VOLUME 11.2 fl (7.0-11.0); RBC 3.62 10^6/uL (3.5-6.1); RED CELL DISTRIBUTION WIDTH 15.8 % (11.5-14.5); WHITE BLOOD COUNT 23.6 10^3/ul (4.5-11.0)
[2017-08-07 05:48] LABS: INR 1.1 (0.93-1.08); PROTHROMBIN TIME 12.6 SECONDS (9.4-12.5)
[2017-08-07 06:20] LABS: ALBUMIN 2.7 g/dL (3.0-4.8); ALT/SGPT 60 U/L (7-56); AST/SGOT 51 U/L (17-59); BLOOD UREA NITROGEN 28 mg/dL (7-21); CALCIUM 8.4 mg/dL (8.4-10.5); GFR AFRICAN-AMERICAN > 60; GFR NON-AFRICAN AMERICAN > 60
--- NOTE | 2017-08-07 06:58 | CP.CCUPN ---
<FelaAman - Last Filed: 08/07/17 10:10> CCU Subjective - Physician Review Subjective (Free Text): Aman Chahal PGY1 ICU Note for Dr. Crockett Patient was seen and examined in ICU. The patient's mental state is at baseline and he is awake and alert and more responsive than on prior days. He is able to follow simple commands but is non-verbal, even in [place] but responds appropriately. The patient is in NAD and is hemodynamically stable not requiring fluids or pressors at this time. He has not required fluid boluses overnight, and BP has been stable. He had a BM that is noted to not be bloody and is a brown color but is not loose. ROS was limited due to AMS. CCU Objective - Vital Signs / Intake & Output Vital Signs (Last 4 hours): Vital Signs Temp Pulse Resp BP Pulse Ox 08/07/17 06:00 67 08/07/17 04:00 98.4 F 69 24 132/70 98 Intake and Output (Last 8hrs): Intake & Output 08/06/17 08/06/17 08/07/17 14:59 22:59 06:59 Intake Total 660 1000 660 Output Total 2777 75 570 Balance -2117 925 90 Weight 145 lb 3.2 oz Intake: IV 660 1000 300 Left Forearm 360 1000 300 Right Wrist 300 Tube Feeding 0 360 Output: Chest Tube Drainage 20 Right Lateral Chest 20 Drainage 1950 Right Chest 1950 Urine 825 75 550 Urethral (Otero) 825 75 550 Stool 2 Other: # Bowel Movements 0 1 - Physical Exam Physical Exam Limitations: Positive for: Altered Mental Status Head: Positive for: Atraumatic, Normocephalic Pupils: Positive for: PERRL Mouth: Positive for: Dry Neck: Positive for: Normal Range of Motion Respiratory/Chest: Positive for: Good Air Exchange, Wheezes, Rhonchi. Negative for: Respiratory Distress, Accessory Muscle Use, Rales, Retracting Cardiovascular: Positive for: Regular Rate and Rhythm, Normal S1, S2. Negative for: Murmurs Abdomen: Positive for: Tenderness (RLQ due to deep palpation), Normal Bowel Sounds, Guarding, Other (PEG tube in place). Negative for: Distention, Peritoneal Signs Genitourinary Male: Positive for: Normal External Genitalia, Other (otero catheter in place). Negative for: Circumcised Penis Back: Positive for: Normal Inspection Upper Extremity: Positive for: Normal Inspection. Negative for: Cyanosis, Edema Lower Extremity: Positive for: Normal Inspection, Other (decreased muscle mass. No edema. No sign of soft tissue infection.). Negative for: Edema Neurological: Positive for: Motor Func Grossly Intact, Other (follows simple commands ). Negative for: GCS=15 (13 [id number]), Speech Normal Skin: Positive for: Warm, Dry, Normal Color. Negative for: Rashes Lymphatic: Positive for: OX3, NI, NC Psychiatric: Positive for: Other (unable to express, nonverbal) - Medications Active Medications: Active Medications Generic Name Dose Route Start Last Admin Trade Name Freq PRN Reason Stop Dose Admin Acetaminophen 650 mg 08/05/17 09:08 08/06/17 13:12 Tylenol 650 Mg Supp RC 650 mg Q6H PRN Administration Pain, Mild (1-3) Acetylcysteine 4 ml 08/06/17 17:47 08/06/17 18:32 Acetylcysteine 20% IH 4 ml [id number] PRN Administration Cough and congestion Atorvastatin Calcium 40 mg 08/05/17 17:00 08/06/17 18:12 Lipitor PO 40 mg DIN RYLIE Administration Donepezil HCl 5 mg 08/05/17 22:00 08/06/17 21:10 Aricept PO 5 mg HS RYLIE Administration Enoxaparin Sodium 40 mg 08/05/17 10:00 08/06/17 11:19 Lovenox SC 40 mg DAILY RYLIE Administration Protocol Vancomycin HCl 1 gm in 250 mls @ 167 mls/hr 08/05/17 10:00 08/06/17 09:02 Vancomycin 1gm IVPB 167 mls/hr DAILY RYLIE Administration Meropenem/Sodium Chloride 1 gm in 100 mls @ 100 mls/hr 08/05/17 10:15 21:09 Meropenem 1g/Ns 100ml Ivpb IVPB 100 mls/hr Q12 RYLIE Administration Protocol Metronidazole 500 mg in 100 mls @ 100 mls/hr 08/05/17 22:00 08/07/17 05:03 Flagyl IVPB 100 mls/hr Q8 RYLIE Administration Protocol Ibuprofen 100 mg 08/06/17 11:44 08/06/17 13:10 Motrin Oral Susp PO 100 mg Q6H PRN Administration Pain, Mild (1-3) Levalbuterol HCl 0.63 mg 08/06/17 17:47 08/06/17 18:32 Xopenex IH 0.63 mg [id number] PRN Administration Shortness of Breath Metoprolol Tartrate 25 mg 08/05/17 10:00 08/06/17 17:15 Lopressor PO Not Given BID RYLIE Dutasteride [Avodart 0.5 mg 08/05/17 10:00 08/06/17 17:12 ] 0.5 Mg (Home Med PO Not Given ) DAILY RYLIE Pantoprazole Sodium 40 mg 08/06/17 09:15 08/06/17 11:19 Protonix Susp PO 40 mg ACB RYLIE Administration - Patient Studies Lab Studies: Microbiology Studies 08/04/17 22:38 Urine Culture - Preliminary Urine,Clean Catch Gram Negative Renzo Lab Studies 08/07/17 08/07/17 08/07/17 Range/Units 05:20 05:20 05:20 WBC 23.6 H D (4.5-11.0) 10^3/ul RBC 3.62 (3.5-6.1) 10^6/uL Hgb 10.3 L (14.0-18.0) g/dL Hct 31.3 L (42.0-52.0) % MCV 86.5 (80.0-105.0) fl MCH 28.5 (25.0-35.0) pg MCHC 32.9 (31.0-37.0) g/dl RDW 15.8 H (11.5-14.5) % Plt Count 196 (120.0-450.0) 10^3/uL MPV 11.2 H (7.0-11.0) fl PT 12.6 H (9.4-12.5) SECONDS INR 1.10 H (0.93-1.08) pCO2 (35-45) mm/Hg pO2 (80-100) mm/Hg HCO3 (21-28) mmol/L ABG pH (7.35-7.45) ABG Total CO2 (22-28) mmol.L ABG O2 Saturation (95-98) % ABG Base Excess (-2.0-3.0) mmol/L ABG Potassium (3.6-5.2) mmol/L Sodium 142 (132-148) mmol/L Chloride 109 H (98-107) mmol/L Glucose (75-110) mg/dl Lactate (0.7-2.1) mmol/L FiO2 % Potassium 3.8 (3.6-5.0) mmol/L Carbon Dioxide 25 (21-33) mmol/L Anion Gap 12 (10-20) BUN 28 H (7-21) mg/dL Creatinine 0.9 (0.8-1.5) mg/dl Est GFR ( Amer) > 60 Est GFR (Non-Af Amer) > 60 Random Glucose 111 H (70-110) mg/dL Calcium 8.4 (8.4-10.5) mg/dL Total Bilirubin 0.6 (0.2-1.3) mg/dL AST 51 (17-59) U/L ALT 60 H (7-56) U/L Alkaline Phosphatase 104 (38-126) U/L Total Protein 5.5 L (5.8-8.3) g/dL Albumin 2.7 L (3.0-4.8) g/dL Globulin 2.7 gm/dL Albumin/Globulin Ratio 1.0 L (1.1-1.8) Arterial Blood Potassium (3.6-5.2) mmol/L Pleural pH 08/06/17 08/06/17 Range/Units 09:13 09:00 WBC (4.5-11.0) 10^3/ul RBC (3.5-6.1) 10^6/uL Hgb (14.0-18.0) g/dL Hct (42.0-52.0) % MCV (80.0-105.0) fl MCH (25.0-35.0) pg MCHC (31.0-37.0) g/dl RDW (11.5-14.5) % Plt Count (120.0-450.0) 10^3/uL MPV (7.0-11.0) fl PT (9.4-12.5) SECONDS INR (0.93-1.08) pCO2 35 (35-45) mm/Hg pO2 80.0 (80-100) mm/Hg HCO3 22.7 (21-28) mmol/L ABG pH 7.42 (7.35-7.45) ABG Total CO2 23.8 (22-28) mmol.L ABG O2 Saturation 99.0 H (95-98) % ABG Base Excess -1.3 (-2.0-3.0) mmol/L ABG Potassium 3.6 (3.6-5.2) mmol/L Sodium 142.0 (132-148) mmol/L Chloride 115.0 H (98-107) mmol/L Glucose 112 H (75-110) mg/dl Lactate 0.9 (0.7-2.1) mmol/L FiO2 28.0 % Potassium (3.6-5.0) mmol/L Carbon Dioxide (21-33) mmol/L Anion Gap (10-20) BUN (7-21) mg/dL Creatinine (0.8-1.5) mg/dl Est GFR ( Amer) Est GFR (Non-Af Amer) Random Glucose (70-110) mg/dL Calcium (8.4-10.5) mg/dL Total Bilirubin (0.2-1.3) mg/dL AST (17-59) U/L ALT (7-56) U/L Alkaline Phosphatase (38-126) U/L Total Protein (5.8-8.3) g/dL Albumin (3.0-4.8) g/dL Globulin gm/dL Albumin/Globulin Ratio (1.1-1.8) Arterial Blood Potassium 3.6 (3.6-5.2) mmol/L Pleural pH 8.5 Laboratory Results - last 24 hr 08/06/17 08/06/17 08/07/17 09:00 09:13 05:20 WBC 23.6 H D RBC 3.62 Hgb 10.3 L Hct 31.3 L MCV 86.5 MCH 28.5 MCHC 32.9 RDW 15.8 H Plt Count 196 MPV 11.2 H PT INR pCO2 35 pO2 80.0 HCO3 22.7 ABG pH 7.42 ABG Total CO2 23.8 ABG O2 Saturation 99.0 H ABG Base Excess -1.3 ABG Potassium 3.6 Sodium 142.0 Chloride 115.0 H Glucose 112 H Lactate 0.9 FiO2 28.0 Potassium Carbon Dioxide Anion Gap BUN Creatinine Est GFR ( Amer) Est GFR (Non-Af Amer) Random Glucose Calcium Total Bilirubin AST ALT Alkaline Phosphatase Total Protein Albumin Globulin Albumin/Globulin Ratio Arterial Blood Potassium 3.6 Pleural pH 8.5 08/07/17 08/07/17 05:20 05:20 WBC RBC Hgb Hct MCV MCH MCHC RDW Plt Count MPV PT 12.6 H INR 1.10 H pCO2 pO2 HCO3 ABG pH ABG Total CO2 ABG O2 Saturation ABG Base Excess ABG Potassium Sodium 142 Chloride 109 H Glucose Lactate FiO2 Potassium 3.8 Carbon Dioxide 25 Anion Gap 12 BUN 28 H Creatinine 0.9 Est GFR ( Amer) > 60 Est GFR (Non-Af Amer) > 60 Random Glucose 111 H Calcium 8.4 Total Bilirubin 0.6 AST 51 ALT 60 H Alkaline Phosphatase 104 Total Protein 5.5 L Albumin 2.7 L Globulin 2.7 Albumin/Globulin Ratio 1.0 L Arterial Blood Potassium Pleural pH Fingerstick Blood Sugar Results: 124 Review of Systems - Review of Systems Systems not reviewed;Unavailable: Dementia Critical Care Progress Note - Extremities/Vascular Does the Patient have a Central Venous Catheter?: No Does the Patient need a Central Venous Catheter?: No Does the Patient have a Otero Catheter?: Yes Does the Patient need a Otero Catheter?: Yes - Prophylaxis GI Prophylaxis GI: PPI - Prophylaxis DVT Prophylaxis DVT: Lovenox, SCDs Assessment/Plan - Assessment and Plan (Free Text) Assessment: 87yo Male with a PMH of prior CVA, progressive dementia, dysphagia s/p PEG tube placement, COPD and recent admission for pneumonia who presented to [facility] with altered mental status and found to be in severe sepsis 2/2 UTI. Code stroke was called but later cancelled due to negative CT. R Subclavian TLC was placed in ED. CXR showed moderate right hydro-pneumothorax. TLC was removed and patient was transferred to ICU. R sided chest tube was placed on 08/06 and around 2 L serosanguinous fluid overall has been removed. Post-procedure CXR showed interval improvement. WBC has begun trending down and is responding appropriately to antibiotics. Plan: Neuro: - improved mental status this morning - will monitor for any signs of mental status changes - prior CT's of head have shown numerous basal ganglia, thalamic and b/l pontine lacunar infarcts - maintain normothermia - Aricept HS - patient remains full code at this point per family; DNI was rescinded by family - palliative care consulted Cardio: - BP stable off fluids or pressors - monitor VS for any changes - maintain BP around 120-150/70-90 - cont home Lipitor - Lopressor stopped due to bradycardia - DVT ppx - echo ordered Pulm: - s/p R chest tube confirmed location by CXR, on gentle suction, draining serosanguinous fluid - per surgery, will keep on suction for today as CXR showed right apical penumothorax - pleural fluid sent for analysis including cultures, cytology, LDH, protein, glucose, pH, TG - O2 Sat is satisfactory on NC - OOB as tolerated - monitor O2 sat and VS - maintain low threshold for intubating the patient given AMS if unable to protect airway - Pulm consulted, appreciate the recs GI: - PEG placement on last admission due to dysphagia (unclear if from CVA or progressive dementia) - abdomen is tender and patient is guarding - CT abdomen/pelvis showed tephylitis, will hold tube feeds until cleared by GI ; per ID, we will monitor WBC to see if it continues to trend down, however, if pain does not improve and WBC remains elevated, will get CT abd/pelvis w/ contrast to evaluate - GI consulted, recs appreciated - GI ppx - c.diff negative; ova and parasites analysis sent Renal: - otero catheter in place - monitor I/O - renal function stable - monitor for electrolyte abnormalities and manage appropriately Heme/Onc: - stool occult blood + likely 2/2 tephylitis - monitor for changes in H/H - H/H stable at this time likely dropped due to bloody pleural effusion and tephylitis ID: - blood cultures negative x48 hrs - urine culture is positive for gram negative rods; pending final culture - cdiff negative - flagyl d/c per ID recs - pleural fluid cultures and analysis ordered - procal 90 - patient on Vancomycin, Meropenem - Lactate is downtrending; patient hasn't had fever in more than 24 hrs - cont to monitor for signs of worsening infection - maintain normothermia - Tylenol PRN fevers Endo: - maintain euglycemia - A1C and TSH were WNL Diet: hold tube feeds, NPO for dysphagia GI ppx: PTX DVT ppx: Lovenox and SCDs Dispo: Patient currently stable; will discuss LTAC with SW and family moving forward for 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 Palliative care to discuss advanced directives with family. Patient was seen, examined and discussed with attending, Dr. Keira Chahal PGY1 Pager # [phone] <Brandt Crockett - Last Filed: 08/07/17 11:20> CCU Objective - Vital Signs / Intake & Output Vital Signs (Last 4 hours): Vital Signs Temp Pulse Resp BP Pulse Ox 08/07/17 10:40 97.5 F L 53 L 51 H 100 08/07/17 10:30 97.7 F 51 L 28 H 100 08/07/17 10:20 97.7 F 51 L 98 08/07/17 10:10 97.5 F L 48 L 16 94 L 08/07/17 10:00 97.7 F 51 L 19 111/52 L 97 08/07/17 09:50 97.7 F 47 L 18 98 08/07/17 09:40 97.7 F 47 L 14 97 08/07/17 09:30 97.7 F 53 L 16 98 08/07/17 09:20 97.9 F 57 L 14 98 08/07/17 09:10 97.9 F 50 L 20 99 08/07/17 09:06 53 L 111/47 L 08/07/17 09:00 97.9 F 60 16 111/47 L 93 L 08/07/17 08:50 97.9 F 58 L 26 H 99 08/07/17 08:43 98.1 F 66 95 08/07/17 08:40 97.9 F 62 18 99 08/07/17 08:37 68 129/53 L 08/07/17 08:30 98.1 F 68 16 97 08/07/17 08:22 98.1 F 70 98 08/07/17 08:20 97.9 F 70 28 H 97 08/07/17 08:19 97.9 F 72 33 H 129/53 L 98 08/07/17 08:10 97.9 F 75 38 H 96 08/07/17 08:05 98.1 F 85 08/07/17 08:00 97.9 F 81 33 H 129/53 L 97 08/07/17 07:50 97.9 F 67 15 100 08/07/17 07:40 97.9 F 64 16 100 08/07/17 07:30 97.9 F 67 15 97 08/07/17 07:29 97.9 F 67 97 08/07/17 07:20 98.1 F 82 19 97 Intake and Output (Last 8hrs): Intake & Output 08/06/17 08/07/17 08/07/17 22:59 06:59 14:59 Intake Total 1000 660 40 Output Total 75 570 420 Balance 925 90 -380 Weight 145 lb 3.2 oz Intake: IV 1000 300 Left Forearm 1000 300 Tube Feeding 360 40 Output: Chest Tube Drainage 20 20 Right Lateral Chest 20 20 Urine 75 550 200 Urethral (Otero) 75 550 200 Stool 200 Other: # Bowel Movements 1 - Medications Active Medications: Active Medications Generic Name Dose Route Start Last Admin Trade Name Freq PRN Reason Stop Dose Admin Acetaminophen 650 mg 08/07/17 07:49 Tylenol 650 Mg Supp RC Q6H PRN Fever >100.4 F Acetylcysteine 4 ml 08/06/17 17:47 08/07/17 07:27 Acetylcysteine 20% IH 4 ml [id number] PRN Administration Cough and congestion Atorvastatin Calcium 40 mg 08/05/17 17:00 08/06/17 18:12 Lipitor PO 40 mg DIN RYLIE Administration Donepezil HCl 5 mg 08/05/17 22:00 08/06/17 21:10 Aricept PO 5 mg HS RYLIE Administration Enoxaparin Sodium 40 mg 08/05/17 10:00 08/07/17 09:28 Lovenox SC 40 mg DAILY RYLIE Administration Protocol Meropenem/Sodium Chloride 1 gm in 100 mls @ 100 mls/hr 08/05/17 10:15 09:09 Meropenem 1g/Ns 100ml Ivpb IVPB 100 mls/hr Q12 RYLIE Administration Protocol Acetaminophen 1,000 mg in 100 mls @ 400 mls/hr 08/07/17 07:48 08/07/17 08:32 Ofirmev IVPB 08/09/17 07:49 400 mls/hr Q6H PRN Administration Pain, moderate (4-7) Vancomycin HCl 1 gm in 250 mls @ 167 mls/hr 08/07/17 10:00 08/07/17 10:13 Vancomycin 1gm IVPB 167 mls/hr Q12 RYLIE Administration Protocol Sodium Chloride 1,000 mls @ 60 mls/hr 08/07/17 11:15 Sodium Chloride 0.9% IV .[id number] [facility] Levalbuterol HCl 0.63 mg 08/06/17 17:47 08/07/17 07:28 Xopenex IH 0.63 mg [id number] PRN Administration Shortness of Breath Dutasteride [Avodart 0.5 mg 08/05/17 10:00 08/06/17 17:12 ] 0.5 Mg (Home Med PO Not Given ) DAILY [facility] Ondansetron HCl 4 mg 08/07/17 11:00 Zofran Inj IVP Q4H PRN Nausea/Vomiting Pantoprazole Sodium 40 mg 08/06/17 09:15 08/07/17 09:09 Protonix Susp PO 40 mg ACB RYLIE Administration - Patient Studies Lab Studies: Microbiology Studies 08/04/17 22:38 Urine Culture - Final Urine,Clean Catch Escherichia Coli Lab Studies 08/07/17 08/07/17 08/07/17 Range/Units 05:20 05:20 05:20 WBC 23.6 H D (4.5-11.0) 10^3/ul RBC 3.62 (3.5-6.1) 10^6/uL Hgb 10.3 L (14.0-18.0) g/dL Hct 31.3 L (42.0-52.0) % MCV 86.5 (80.0-105.0) fl MCH 28.5 (25.0-35.0) pg MCHC 32.9 (31.0-37.0) g/dl RDW 15.8 H (11.5-14.5) % Plt Count 196 (120.0-450.0) 10^3/uL MPV 11.2 H (7.0-11.0) fl PT 12.6 H (9.4-12.5) SECONDS INR 1.10 H (0.93-1.08) Sodium 142 (132-148) mmol/L Potassium 3.8 (3.6-5.0) mmol/L Chloride 109 H (98-107) mmol/L Carbon Dioxide 25 (21-33) mmol/L Anion Gap 12 (10-20) BUN 28 H (7-21) mg/dL Creatinine 0.9 (0.8-1.5) mg/dl Est GFR ( Amer) > 60 Est GFR (Non-Af Amer) > 60 Random Glucose 111 H (70-110) mg/dL Calcium 8.4 (8.4-10.5) mg/dL Total Bilirubin 0.6 (0.2-1.3) mg/dL AST 51 (17-59) U/L ALT 60 H (7-56) U/L Alkaline Phosphatase 104 (38-126) U/L Total Protein 5.5 L (5.8-8.3) g/dL Albumin 2.7 L (3.0-4.8) g/dL Globulin 2.7 gm/dL Albumin/Globulin Ratio 1.0 L (1.1-1.8) Fluid Source Fluid Appearance (CLEAR) Fluid WBC (0.0-300.0) /uL Fluid RBC (0.0-0.0) /uL Fluid Tot Cell Count (0-0) Fluid Neutrophils (0-0) % Fluid Lymphocytes (0-0) % Fld Monocyte/Macrophag Fluid Comment 08/06/17 Range/Units 08:37 WBC (4.5-11.0) 10^3/ul RBC (3.5-6.1) 10^6/uL Hgb (14.0-18.0) g/dL Hct (42.0-52.0) % MCV (80.0-105.0) fl MCH (25.0-35.0) pg MCHC (31.0-37.0) g/dl RDW (11.5-14.5) % Plt Count (120.0-450.0) 10^3/uL MPV (7.0-11.0) fl PT (9.4-12.5) SECONDS INR (0.93-1.08) Sodium (132-148) mmol/L Potassium (3.6-5.0) mmol/L Chloride (98-107) mmol/L Carbon Dioxide (21-33) mmol/L Anion Gap (10-20) BUN (7-21) mg/dL Creatinine (0.8-1.5) mg/dl Est GFR ( Amer) Est GFR (Non-Af Amer) Random Glucose (70-110) mg/dL Calcium (8.4-10.5) mg/dL Total Bilirubin (0.2-1.3) mg/dL AST (17-59) U/L ALT (7-56) U/L Alkaline Phosphatase (38-126) U/L Total Protein (5.8-8.3) g/dL Albumin (3.0-4.8) g/dL Globulin gm/dL Albumin/Globulin Ratio (1.1-1.8) Fluid Source Pleural/thoracentesi Fluid Appearance Bloody (CLEAR) Fluid WBC 197.0 (0.0-300.0) /uL Fluid RBC 29687.0 H (0.0-0.0) /uL Fluid Tot Cell Count 100 H (0-0) Fluid Neutrophils 79.2 H (0-0) % Fluid Lymphocytes 20.8 H (0-0) % Fld Monocyte/Macrophag TEST NOT PERFORMED Fluid Comment Turbid Laboratory Results - last 24 hr 08/06/17 08/07/17 08/07/17 08:37 05:20 05:20 WBC 23.6 H D RBC 3.62 Hgb 10.3 L Hct 31.3 L MCV 86.5 MCH 28.5 MCHC 32.9 RDW 15.8 H Plt Count 196 MPV 11.2 H PT 12.6 H INR 1.10 H Sodium Potassium Chloride Carbon Dioxide Anion Gap BUN Creatinine Est GFR ( Amer) Est GFR (Non-Af Amer) Random Glucose Calcium Total Bilirubin AST ALT Alkaline Phosphatase Total Protein Albumin Globulin Albumin/Globulin Ratio Fluid Source Pleural/thoracentesi Fluid Appearance Bloody Fluid WBC 197.0 Fluid RBC 91365.0 H Fluid Tot Cell Count 100 H Fluid Neutrophils 79.2 H Fluid Lymphocytes 20.8 H Fld Monocyte/Macrophag TEST NOT PERFORMED Fluid Comment Turbid 08/07/17 05:20 WBC RBC Hgb Hct MCV MCH MCHC RDW Plt Count MPV PT INR Sodium 142 Potassium 3.8 Chloride 109 H Carbon Dioxide 25 Anion Gap 12 BUN 28 H Creatinine 0.9 Est GFR ( Amer) > 60 Est GFR (Non-Af Amer) > 60 Random Glucose 111 H Calcium 8.4 Total Bilirubin 0.6 AST 51 ALT 60 H Alkaline Phosphatase 104 Total Protein 5.5 L Albumin 2.7 L Globulin 2.7 Albumin/Globulin Ratio 1.0 L Fluid Source Fluid Appearance Fluid WBC Fluid RBC Fluid Tot Cell Count Fluid Neutrophils Fluid Lymphocytes Fld Monocyte/Macrophag Fluid Comment Assessment/Plan - Assessment and Plan (Free Text) Assessment: Patient seen and examined on rounds this morning with resident, agree with note with following additions/exceptions: Patient is is 87yo male with severe dementia, dysphagia s/p PEG tube placement, COPD, admitted to MICU for R hydropneumothorax, and UT/Sepsis. Currently the patient is afebrile, HD stable, off pressors, in NAD, comfortable, at baseline mental status. Awaiting cytology of pleural fluid, and speciaiton of gram neg bacteria in urine. ID is following, surgery is following. Palliative care to be consulted. Hydropneumothorax, s/p CT UTI/Sepsis Dehydraiton COPD Dysphagia s.p PEG Hx of CVA Recommend: - supp o2 as needed - IVF hydration - CT to gravity - Daily CXR - follow up surgery - follow up pleural fluid cytology and pleural fluid LDH, Protein - cont with antibiotics as per ID, consider Discontinuing Flagyl, and Vanco IV - monitor renal functions - pallitive care consult - GI ppx - DVT ppx - Monitor in MICU
[2017-08-07] MEDS: Acetylcysteine 20% Inhal Soln (4ml) IH PRN ×3 (07:27→20:54)
[2017-08-07] MEDS: Levalbuterol 0.63 MG/3 ML Inhal Soln UD IH PRN ×3 (07:28→20:54)
[2017-08-07 08:14] LABS: BODY FLUID TYPE PLEURAL/THORACENTESI
[2017-08-07 08:42] LABS: BF GROSS APPEARANCE BLOODY (CLEAR); BODY FLUID TOTAL COUNT 100 (0-0)
--- NOTE | 2017-08-07 08:58 | CP.PCM.PN ---
Subjective - Date & Time of Evaluation Date of Evaluation: 08/07/17 Time of Evaluation: 07:10 - Subjective Subjective: Patient seen and examined at bedside, no adverse events overnight. Patient is saturating well on nasal canula with no respiratory distress. 10cc's of serosanguinous output from the chest tube past 24 hours. No leak. Objective - Vital Signs/Intake and Output Vital Signs (last 24 hours): Temp Pulse Resp BP Pulse Ox 98.1 F 68 21 129/53 L 97 08/07/17 08:00 08/07/17 08:37 08/07/17 08:00 08/07/17 08:37 08/07/17 08:00 Intake and Output: 08/07/17 08/07/17 06:59 18:59 Intake Total 660 Output Total 570 Balance 90 - Medications Medications: Current Medications Acetaminophen (Tylenol 650 Mg Supp) 650 mg RC Q6H PRN PRN Reason: Fever >100.4 F Acetylcysteine (Acetylcysteine 20%) 4 ml IH [id number] PRN PRN Reason: Cough and congestion Last Admin: 08/07/17 07:27 Dose: 4 ml Atorvastatin Calcium (Lipitor) 40 mg PO DIN RYLIE Last Admin: 08/06/17 18:12 Dose: 40 mg Donepezil HCl (Aricept) 5 mg PO HS [facility] Last Admin: 08/06/17 21:10 Dose: 5 mg Enoxaparin Sodium (Lovenox) 40 mg SC DAILY RYLIE PRN Reason: Protocol Last Admin: 08/06/17 11:19 Dose: 40 mg Vancomycin HCl (Vancomycin 1gm) 1 gm in 250 mls @ 167 mls/hr IVPB DAILY [facility] Last Admin: 08/06/17 09:02 Dose: 167 mls/hr Meropenem/Sodium Chloride (Meropenem 1g/Ns 100ml Ivpb) 1 gm in 100 mls @ 100 mls/hr IVPB Q12 RYLIE PRN Reason: Protocol Last Admin: 08/06/17 21:09 Dose: 100 mls/hr Metronidazole (Flagyl) 500 mg in 100 mls @ 100 mls/hr IVPB Q8 RYLIE PRN Reason: Protocol Last Admin: 08/07/17 05:03 Dose: 100 mls/hr Acetaminophen (Ofirmev) 1,000 mg in 100 mls @ 400 mls/hr IVPB Q6H PRN PRN Reason: Pain, moderate (4-7) Stop: 08/09/17 07:49 Last Admin: 08/07/17 08:32 Dose: 400 mls/hr Levalbuterol HCl (Xopenex) 0.63 mg IH [id number] PRN PRN Reason: Shortness of Breath Last Admin: 08/07/17 07:28 Dose: 0.63 mg Metoprolol Tartrate (Lopressor) 25 mg PO BID [facility] Last Admin: 08/07/17 08:37 Dose: 25 mg Dutasteride [Avodart ] 0.5 Mg (Home Med ) 0.5 mg PO DAILY [facility] Last Admin: 08/06/17 17:12 Dose: Not Given Pantoprazole Sodium (Protonix Susp) 40 mg PO ACB [facility] Last Admin: 08/06/17 11:19 Dose: 40 mg - Labs Labs: 08/07/17 05:20 08/07/17 05:20 PT 12.6 SECONDS (9.4-12.5) H 08/07/17 05:20 INR 1.10 (0.93-1.08) H 08/07/17 05:20 APTT 32.2 Seconds (25.1-36.5) 08/04/17 20:57 - Constitutional Appears: Non-toxic, No Acute Distress - Head Exam Head Exam: ATRAUMATIC, NORMOCEPHALIC - Eye Exam Eye Exam: Normal appearance. absent: Conjunctival injection, Scleral icterus - ENT Exam ENT Exam: Mucous Membranes Moist, Normal Oropharynx - Respiratory Exam Respiratory Exam: NORMAL BREATHING PATTERN. absent: Accessory Muscle Use, Respiratory Distress Additional comments: chest tube in place in the right lateral chest. Dressing C/D/I. No leak - Cardiovascular Exam Cardiovascular Exam: RRR - GI/Abdominal Exam GI & Abdominal Exam: Soft. absent: Distended - Neurological Exam Neurological Exam: Alert, Awake, Oriented x3 - Psychiatric Exam Psychiatric exam: Normal Affect, Normal Mood - Skin Skin Exam: Dry, Intact, Normal Color, Warm Assessment and Plan - Assessment and Plan (Free Text) Assessment: 87yo M Right Hydropneumothorax Plan: - CXR this AM: residual small apical pneumothorax - Continue on chest tube on suction today with aggressive chest physiotherapy and incentive spirometer use - continue daily CXR - Pain management - Continue management per primary and ICU Further recs as per Dr. Carrillo Alejandre, PGY2 surgery pager: [phone]
[2017-08-07] MEDS: Meropenem 1g/NS 100mL IVPB 1 GM/100 ML PIGGYBACK IVPB SCH ×3 (09:09→21:49)
[2017-08-07] MEDS: Pantoprazole 40 mg Susp UD PO SCH (09:09)
--- NOTE | 2017-08-07 09:10 | RAD ---
HISTORY: s/p chest tube, comparison COMPARISON: 08/06/2017 FINDINGS: LUNGS: No active pulmonary disease. PLEURA: There is a small right apical pneumothorax. Chest tube remains in place. The edge of the lung is 10 mm from the chest wall CARDIOVASCULAR: Normal. OSSEOUS STRUCTURES: No significant abnormalities. VISUALIZED UPPER ABDOMEN: Normal. OTHER FINDINGS: None. IMPRESSION: There is a small right apical pneumothorax. Chest tube remains in place. The edge of the lung is 10 mm from the chest wall
[2017-08-07] MEDS: Enoxaparin 40 mg Syringe SC SCH (09:28)
--- NOTE | 2017-08-07 09:59 | CON ---
DATE: PULMONARY CONSULTATION REFERRING PHYSICIAN: Dr. Aguilar. REASON FOR CONSULTATION: Chronic lung disease, status post hydropneumothorax, requiring chest tube. HISTORY OF PRESENT ILLNESS: This is an 87-year-old gentleman with past medical history significant for dementia, history of strokes, oropharyngeal dysphagia requiring G-tube, had recently pneumonia, treated with antibiotics, brought back to the hospital with lethargy, leukocytosis, fever, found to be in the sepsis, bacteremia, started on broad-spectrum antibiotics covering healthcare-associated gram-negative and gram-positive organism. He was resuscitated with fluid. Chest x-ray done, which shows hydropneumothorax At one point, patient transferred to Intensive Care Unit for further care. Surgical consult was called for right-sided large hydropneumothorax. Chest tube was placed and almost 2 liters of fluid with some blood tinge was drained. Presently, patient is in ICU, sleepy, with chest tube still have air leak, still have cough, sputum production. No hemoptysis, no hematuria. No diarrhea or leg swelling reported. PAST MEDICAL HISTORY: As per history present illness and stroke dementia, chronic lung disease, BPH. ALLERGIES: NONE KNOWN. SOCIAL HISTORY: No active smoking or alcohol use. FAMILY HISTORY: No significant cardiopulmonary disease reported. MEDICATIONS: He is on Mucomyst 20% inhaled q. 6 hours p.r.n., Aricept 5 mg at bedtime, also on Avodart 0.5 mg daily, Flagyl 500 mg q. 8 hours, Lipitor 40 mg daily, metoprolol tartrate 25 mg twice a day, Lovenox 40 mg daily, meropenem 1 g IV q. 12 hours, Motrin suspension p.r.n. basis q. 6 hours, Protonix 40 mg daily, Tylenol p.r.n., vancomycin 1 g IV daily, Xopenex inhaled q. 6 hours. REVIEW OF SYSTEMS: He is sleepy and tired. Has cough, shortness of breath. No hemoptysis. No chest pain. No vomiting. No hematuria. No diarrhea. No leg swelling reported. PHYSICAL EXAMINATION: GENERAL: Lying in the bed, lethargic. VITAL SIGNS: Temperature is 98, heart rate 75, respiratory rate is 20, blood pressure 111/44, pulse of 98% on nasal cannula. HEENT: Moist mucous membrane. Crowded airway. Mallampati score is IV. NECK: Supple. No JVD. LUNGS: Have scattered rhonchi and wheezing, has a right-sided chest tube. HEART: S1 and S2. ABDOMEN: Soft, nontender. No organomegaly. G-tube area looks okay. EXTREMITIES: There is no edema. NEUROLOGIC: Sleepy,arousable. LABORATORY DATA: Shows hemoglobin 11.1, hematocrit 32.9, WBC 31.4, platelet count is 187. INR 1.13. PTT 32. Blood gases shows pH 7.42, pCO2 of 35, O2 is 80, that is on nasal cannula. Sodium 145, potassium 3.9, chloride 110, bicarbonate 24, BUN 27, creatinine 1.2, glucose 112, calcium 8.4, phosphorus 3.1, magnesium 2.1, total bili 1.2, AST 95, ALT 86, alk phos is 84. Albumin is 3.1. Procalcitonin done yesterday, 90. Stool occult blood is positive. Influenza is negative. Urine has a gram-negative raymond. Blood culture after 48 hours, there is no growth at the hospital culture. Stool for C. diff is negative. Chest x-ray done after placing the chest tube this morning shows right-sided chest tube, interval significant improvement in the large right hydropneumothorax, there is still a small right hydropneumothorax observed. Has abdominal CAT scan done yesterday shows large right hydropneumothorax, mural thickening in the cecum with surrounding inflammatory changes concerning for nonspecific typhlitis. IMPRESSION AND PLAN: Chronic obstructive lung disease; healthcare-associated pneumonia; hydropneumothorax, requiring chest tube; history of cerebrovascular accident; dementia; oropharyngeal dysphagia, requiring gastrotomy tube; septic shock, requiring fluid resuscitation and broad-spectrum antibiotics, covering healthcare-associated organism; also abnormal abdominal CAT scan. Echocardiogram was done in 05/2017 shows right ventricular systolic pressure is 32. At that time, left ventricle shows concentric left ventricular hypertrophy. So I agree with the present management. Continue broad-spectrum antibiotics covering healthcare-associated organism. Keep the chest tube on suction. Inhaled bronchodilator. May use bilevel positive airway pressure 12/6 with 40% oxygen as needed for respiratory distress. Follow up ABG, chest x-ray, CBC, CMP in the morning. Thank you and we will follow with you. Dl Lynch MD [facility] # [id number]
--- NOTE | 2017-08-07 10:11 | CP.PCM.PN ---
Subjective - Date & Time of Evaluation Date of Evaluation: 08/07/17 Time of Evaluation: 09:50 - Subjective Subjective: Patient still having abdominal pain, no vomiting, no fevers overnight, still weak-looking, still with right sided chest tube. Objective - Vital Signs/Intake and Output Vital Signs (last 24 hours): Temp Pulse Resp BP Pulse Ox 98.4 F 69 24 132/70 98 08/07/17 04:00 08/07/17 04:00 08/07/17 04:00 08/07/17 04:00 08/07/17 04:00 Intake and Output: 08/06/17 08/07/17 18:59 06:59 Intake Total 1660 660 Output Total 2852 570 Balance -1192 90 - Medications Medications: Current Medications Acetaminophen (Tylenol 650 Mg Supp) 650 mg RC Q6H PRN PRN Reason: Pain, Mild (1-3) Last Admin: 08/06/17 13:12 Dose: 650 mg Acetylcysteine (Acetylcysteine 20%) 4 ml IH [id number] PRN PRN Reason: Cough and congestion Last Admin: 08/06/17 18:32 Dose: 4 ml Atorvastatin Calcium (Lipitor) 40 mg PO DIN [facility] Last Admin: 08/06/17 18:12 Dose: 40 mg Donepezil HCl (Aricept) 5 mg PO HS [facility] Last Admin: 08/06/17 21:10 Dose: 5 mg Enoxaparin Sodium (Lovenox) 40 mg SC DAILY RYLIE PRN Reason: Protocol Last Admin: 08/06/17 11:19 Dose: 40 mg Vancomycin HCl (Vancomycin 1gm) 1 gm in 250 mls @ 167 mls/hr IVPB DAILY [facility] Last Admin: 08/06/17 09:02 Dose: 167 mls/hr Meropenem/Sodium Chloride (Meropenem 1g/Ns 100ml Ivpb) 1 gm in 100 mls @ 100 mls/hr IVPB Q12 RYLIE PRN Reason: Protocol Last Admin: 08/06/17 21:09 Dose: 100 mls/hr Metronidazole (Flagyl) 500 mg in 100 mls @ 100 mls/hr IVPB Q8 RYLIE PRN Reason: Protocol Last Admin: 08/07/17 05:03 Dose: 100 mls/hr Ibuprofen (Motrin Oral Susp) 100 mg PO Q6H PRN PRN Reason: Pain, Mild (1-3) Last Admin: 08/06/17 13:10 Dose: 100 mg Levalbuterol HCl (Xopenex) 0.63 mg IH [id number] PRN PRN Reason: Shortness of Breath Last Admin: 08/06/17 18:32 Dose: 0.63 mg Metoprolol Tartrate (Lopressor) 25 mg PO BID [facility] Last Admin: 08/06/17 17:15 Dose: Not Given Dutasteride [Avodart ] 0.5 Mg (Home Med ) 0.5 mg PO DAILY [facility] Last Admin: 08/06/17 17:12 Dose: Not Given Pantoprazole Sodium (Protonix Susp) 40 mg PO ACB [facility] Last Admin: 08/06/17 11:19 Dose: 40 mg - Labs Labs: 08/07/17 05:20 08/07/17 05:20 PT 12.6 SECONDS (9.4-12.5) H 08/07/17 05:20 INR 1.10 (0.93-1.08) H 08/07/17 05:20 APTT 32.2 Seconds (25.1-36.5) 08/04/17 20:57 - Constitutional Appears: Chronically Ill, Other (ill-appearing) - Head Exam Head Exam: NORMAL INSPECTION - ENT Exam ENT Exam: Mucous Membranes Moist - Neck Exam Neck Exam: absent: Meningismus - Respiratory Exam Respiratory Exam: Decreased Breath Sounds - Cardiovascular Exam Cardiovascular Exam: +S1, +S2 - GI/Abdominal Exam GI & Abdominal Exam: Guarding, Soft, Tenderness (right lower quadrant). absent : Distended, Rigid, Rebound Assessment and Plan - Assessment and Plan (Free Text) Plan: Assessment consider severe sepsis with acute renal failure due to intra-abdominal infection with typhlitis /cecitis in this patient who developed right sided pneumohydrothorax S/P right sided chest tube placement history of severe sepsis with acute renal failure due to HCAP TIA COPD dementia HTN osteoarthritis chronic CHF cataracts Plan continue Vancomycin and Merrem day 3; blood cx are negative; urine cx showing gram negative bacilli and will follow up identification and sensitivities reviewed CT scan of the abdomen and pelvis which shows typhlitis - WBC still elevated - if patient continues to be have pain and still with elevated WBC's, would recommend repeat of CT A/P to rule out developing abscess will continue to monitor clinically
[2017-08-07] MEDS: Vancomycin 1gm in NS 250ml 1 GM/250 ML BAG IVPB SCH ×2 (10:13→21:49)
--- NOTE | 2017-08-07 10:36 | HP ---
DATE OF EXAM: 08/05/2017 CHIEF COMPLAINT: Patient was admitted to the Emergency Room, was complaining of fever and change in mental status. HISTORY OF PRESENT ILLNESS: An 87-year-old male with a history of CVA, congestive heart failure, COPD, dementia, hypertension, osteoarthritis, history of recurrent pneumonia came into the Emergency Room for acute change in mental status, became less responsive with his to the right side. Patient was recently discharged with the feeding tube at home and was getting feeding at home and he was stable until the events happened and came to the Emergency Room for evaluation. PAST MEDICAL HISTORY: As I mentioned before, he had CVA, hypertension, COPD, recurrent pneumonia, gait disorder, generalized weakness, recurrent stroke, hypertension, atherosclerosis, has a history of cerebral bleed more than 2 to 3 weeks ago; dysphagia, for that reason, PEG tube was inserted. ALLERGIES: NO KNOWN ALLERGIES. SOCIAL HISTORY: He lives with his family, very supportive and getting feeding tube. No smoking. No drinking. REVIEW OF SYSTEMS: As in the present illness. PHYSICAL EXAMINATION VITAL SIGNS: As follows; temperature is 101.6, heart rate is 72, blood pressure 132/52, respirations 18, saturation on room air and 97% on 2 liters nasal cannula. HEAD AND NECK: Normal. No JVD. No thyromegaly. CHEST: Clear. Diminished breath sounds bilaterally. CARDIAC: First sound and second sound normal. ABDOMEN: Soft. PEG tube site is clean and nontender. EXTREMITIES: No edema. NEUROLOGIC: Patient is day is more responsive. He talks and he is awake and alert. No respiratory distress and he has a subclavian line put in with right-sided chest wall more elevated on that side. LABORATORY DATA: White count 26.2, hemoglobin , hematocrit 38.7, platelets 288,000. Chemistry was noted for sodium 136, potassium 4.5, chloride 99, bicarbonate 23, BUN 24, creatinine 1.2, blood sugar 158, total bilirubin 1.8, ALT 58, normal AST. Troponin is 0.01. Rest of the test is negative. Patient had chest x-ray and noted with no pneumothorax with small right pleural effusion and severe pulmonary venous congestion with central line in the right atrium. Patient had repeat chest x-ray and it showed right hydropneumothorax and [id number] right hydropneumothorax with compressive atelectasis and . CT scan shows mural thickening in the cecum, surrounding inflammatory changes concerning for typhlitis, but no abscess; also large right hydropneumothorax. Urinalysis was done and it shows moderate positive nitrites, leukocyte esterase positive with 10-15 white blood cells, 5-10 red blood cells. IMPRESSION 1. Acute intraabdominal infection. 2. Acute urinary tract infection. 3. Acute hydropneumothorax, probably iatrogenic on central line. PLAN 1. To get a ID consultation. will start the patient on IV antibiotic, meropenem and vancomycin. Continue antibiotics for now. 2. Hydropneumothorax. We will get Dr. Vizcaino's surgical consult. Patient already seen by Dr. Bucky Yoo for ICU admissions and will be reevaluated for any admissions. 3. Sepsis: High white count, high fever, intraabdominal infections, possible colitis, typhlitis, right-sided abdominal infections. We will continue IV antibiotics. Follow up with GI consultation and surgical consult and we will monitor the patient's condition for now. Continue IV fluid. Continue nebulizer treatment. Continue GI and DVT prophylaxis. Cody Aguilar MD
--- NOTE | 2017-08-07 10:50 | CP.PCM.CON ---
History of Present Illness - History of Present Illness History of Present Illness: GI: Dr. Valerio CC: Colitis HPI: 87M w. pmh of recent CVA 2 weeks ago, CHF, COPD, dementia, hypertension, TIA, osteoarthritis presents w. AMS and sepsis. Per family pt has been more lethargic w. decreased appetite. They deny any episodes of N/V. During work up, pt underwent CT of Chest/abd/pelvis which showed R side hydroPTX for which chest tube was placed and findings suggestive of R side colitis for which GI was consulted. PMHx: CVA, CHF, COPD, Advanced dementia, HTN, OA, PNA PSHx: Denies Meds: MAR reviewed NKDA Social Hx: No ETOH/tobacco/drugs Fhx: non-contributory Review of Systems - Review of Systems All systems: reviewed and no additional remarkable complaints except (HPI) Past Patient History - Infectious Disease Hx of Infectious Diseases: None - Tetanus Immunizations Tetanus Immunization: Unknown - Past Social History Smoking Status: Unknown If Ever Smoked - CARDIAC Hx Hypertension: Yes - PULMONARY Hx Chronic Obstructive Pulmonary Disease (COPD): Yes - NEUROLOGICAL HX Cerebrovascular Accident: Yes (TIA) - HEENT Hx HEENT Problems: Yes (WEARS RX GLASSES) Hx Cataracts: Yes - RENAL Hx Chronic Kidney Disease: Yes - ENDOCRINE/METABOLIC Hx Endocrine Disorders: No - HEMATOLOGICAL/ONCOLOGICAL Hx Blood Disorders: No - INTEGUMENTARY Hx Dermatological Problems: Yes (MULTIPLE ROUND OLD AGE SPOTS TO FACE,ARMS) - MUSCULOSKELETAL/RHEUMATOLOGICAL Hx Arthritis: Yes - GASTROINTESTINAL Hx Gastrointestinal Disorders: No - GENITOURINARY/GYNECOLOGICAL Hx Genitourinary Disorders: Yes - PSYCHIATRIC Hx Psychophysiologic Disorder: No - SURGICAL HISTORY Hx Surgeries: No Other/Comment: peg tube - ANESTHESIA Hx Anesthesia: No Meds Allergies/Adverse Reactions: Allergies Allergy/AdvReac Type Severity Reaction Status Date / Time No Known Allergies Allergy Verified 06/08/17 07:28 - Medications Medications: Current Medications Acetaminophen (Tylenol 650 Mg Supp) 650 mg RC Q6H PRN PRN Reason: Fever >100.4 F Acetylcysteine (Acetylcysteine 20%) 4 ml IH [id number] PRN PRN Reason: Cough and congestion Last Admin: 08/07/17 07:27 Dose: 4 ml Atorvastatin Calcium (Lipitor) 40 mg PO DIN RYLIE Last Admin: 08/06/17 18:12 Dose: 40 mg Donepezil HCl (Aricept) 5 mg PO HS [facility] Last Admin: 08/06/17 21:10 Dose: 5 mg Enoxaparin Sodium (Lovenox) 40 mg SC DAILY RYLIE PRN Reason: Protocol Last Admin: 08/07/17 09:28 Dose: 40 mg Meropenem/Sodium Chloride (Meropenem 1g/Ns 100ml Ivpb) 1 gm in 100 mls @ 100 mls/hr IVPB Q12 RYLIE PRN Reason: Protocol Last Admin: 08/07/17 09:09 Dose: 100 mls/hr Acetaminophen (Ofirmev) 1,000 mg in 100 mls @ 400 mls/hr IVPB Q6H PRN PRN Reason: Pain, moderate (4-7) Stop: 08/09/17 07:49 Last Admin: 08/07/17 08:32 Dose: 400 mls/hr Vancomycin HCl (Vancomycin 1gm) 1 gm in 250 mls @ 167 mls/hr IVPB Q12 RYLIE PRN Reason: Protocol Last Admin: 08/07/17 10:13 Dose: 167 mls/hr Levalbuterol HCl (Xopenex) 0.63 mg IH [id number] PRN PRN Reason: Shortness of Breath Last Admin: 08/07/17 07:28 Dose: 0.63 mg Dutasteride [Avodart ] 0.5 Mg (Home Med ) 0.5 mg PO DAILY [facility] Last Admin: 08/06/17 17:12 Dose: Not Given Pantoprazole Sodium (Protonix Susp) 40 mg PO ACB [facility] Last Admin: 08/07/17 09:09 Dose: 40 mg Physical Exam - Constitutional Appears: Non-toxic, Chronically Ill - Head Exam Head Exam: ATRAUMATIC, NORMOCEPHALIC - Eye Exam Eye Exam: EOMI - ENT Exam ENT Exam: Mucous Membranes Moist - Neck Exam Neck exam: Positive for: Full Rom - Respiratory Exam Respiratory Exam: NORMAL BREATHING PATTERN. absent: Accessory Muscle Use, Respiratory Distress - GI/Abdominal Exam GI & Abdominal Exam: Soft. absent: Distended, Firm, Guarding, Rebound, Rigid, Tenderness Additional comments: PEG in place - Extremities Exam Extremities exam: Negative for: calf tenderness, pedal pulses present - Neurological Exam Neurological exam: Alert Results - Vital Signs Recent Vital Signs: Last Vital Signs Temp 97.5 F L 08/07/17 10:40 Pulse 53 L 08/07/17 10:40 Resp 51 H 08/07/17 10:40 BP 111/52 L 08/07/17 10:00 Pulse Ox 100 08/07/17 10:40 - Labs Result Diagrams: 08/07/17 05:20 08/07/17 05:20 Labs: Laboratory Results - last 24 hr 08/06/17 08/07/17 08/07/17 08:37 05:20 05:20 WBC 23.6 H D RBC 3.62 Hgb 10.3 L Hct 31.3 L MCV 86.5 MCH 28.5 MCHC 32.9 RDW 15.8 H Plt Count 196 MPV 11.2 H PT 12.6 H INR 1.10 H Sodium Potassium Chloride Carbon Dioxide Anion Gap BUN Creatinine Est GFR ( Amer) Est GFR (Non-Af Amer) Random Glucose Calcium Total Bilirubin AST ALT Alkaline Phosphatase Total Protein Albumin Globulin Albumin/Globulin Ratio Fluid Source Pleural/thoracentesi Fluid Appearance Bloody Fluid WBC 197.0 Fluid RBC 94042.0 H Fluid Tot Cell Count 100 H Fluid Neutrophils 79.2 H Fluid Lymphocytes 20.8 H Fld Monocyte/Macrophag TEST NOT PERFORMED Fluid Comment Turbid 08/07/17 05:20 WBC RBC Hgb Hct MCV MCH MCHC RDW Plt Count MPV PT INR Sodium 142 Potassium 3.8 Chloride 109 H Carbon Dioxide 25 Anion Gap 12 BUN 28 H Creatinine 0.9 Est GFR ( Amer) > 60 Est GFR (Non-Af Amer) > 60 Random Glucose 111 H Calcium 8.4 Total Bilirubin 0.6 AST 51 ALT 60 H Alkaline Phosphatase 104 Total Protein 5.5 L Albumin 2.7 L Globulin 2.7 Albumin/Globulin Ratio 1.0 L Fluid Source Fluid Appearance Fluid WBC Fluid RBC Fluid Tot Cell Count Fluid Neutrophils Fluid Lymphocytes Fld Monocyte/Macrophag Fluid Comment - Imaging and Cardiology CT scan - abdomen Status: Image reviewed by me, Report reviewed by me Assessment & Plan - Assessment and Plan (Free Text) Assessment: 87M w. colitis, C. Diff negative -recommend conservative management -NPO, IVF, abx -Serial abd exams -d/w attending Brock PGY3
--- NOTE | 2017-08-07 11:48 | CP.PCM.CON ---
History of Present Illness - History of Present Illness History of Present Illness: Palliative consult requested by DR Anaya Aguilar Reason: Goals of care/ advance care planning 87 year old male with history of dementia, CVA's,dyspahagia who presented with leukocytisis, lethargy fever and a productive cough. Family denied nausea,vomiting, diarrhea. He was recently treated for pneumonia. Work up reveals bacteremia. Chest x ray shows right sided hydro pneumothorax. A chest tube was tube was placed. Patient is transferred to the ICU for further medical management. PMHx: CVA's, dementia, BPH, pneumonia, dysphagia s/p PEG placement. Social History : Former smoker, no alcohol or drug use. Lives with spouse Family History: Non contributory. Advance Care Planning: The patient does not have an Advanced Directive Review of Systems: As per HPI, otherwise negative review. Past Patient History - Infectious Disease Hx of Infectious Diseases: None - Tetanus Immunizations Tetanus Immunization: Unknown - Past Social History Smoking Status: Unknown If Ever Smoked - CARDIAC Hx Hypertension: Yes - PULMONARY Hx Chronic Obstructive Pulmonary Disease (COPD): Yes - NEUROLOGICAL HX Cerebrovascular Accident: Yes (TIA) - HEENT Hx HEENT Problems: Yes (WEARS RX GLASSES) Hx Cataracts: Yes - RENAL Hx Chronic Kidney Disease: Yes - ENDOCRINE/METABOLIC Hx Endocrine Disorders: No - HEMATOLOGICAL/ONCOLOGICAL Hx Blood Disorders: No - INTEGUMENTARY Hx Dermatological Problems: Yes (MULTIPLE ROUND OLD AGE SPOTS TO FACE,ARMS) - MUSCULOSKELETAL/RHEUMATOLOGICAL Hx Arthritis: Yes - GASTROINTESTINAL Hx Gastrointestinal Disorders: No - GENITOURINARY/GYNECOLOGICAL Hx Genitourinary Disorders: Yes - PSYCHIATRIC Hx Psychophysiologic Disorder: No - SURGICAL HISTORY Hx Surgeries: No Other/Comment: peg tube - ANESTHESIA Hx Anesthesia: No Meds Allergies/Adverse Reactions: Allergies Allergy/AdvReac Type Severity Reaction Status Date / Time No Known Allergies Allergy Verified 06/08/17 07:28 - Medications Medications: Current Medications Acetaminophen (Tylenol 650 Mg Supp) 650 mg RC Q6H PRN PRN Reason: Fever >100.4 F Acetylcysteine (Acetylcysteine 20%) 4 ml IH [id number] PRN PRN Reason: Cough and congestion Last Admin: 08/07/17 07:27 Dose: 4 ml Atorvastatin Calcium (Lipitor) 40 mg PO DIN RYLIE Last Admin: 08/06/17 18:12 Dose: 40 mg Donepezil HCl (Aricept) 5 mg PO HS [facility] Last Admin: 08/06/17 21:10 Dose: 5 mg Enoxaparin Sodium (Lovenox) 40 mg SC DAILY RYLIE PRN Reason: Protocol Last Admin: 08/07/17 09:28 Dose: 40 mg Meropenem/Sodium Chloride (Meropenem 1g/Ns 100ml Ivpb) 1 gm in 100 mls @ 100 mls/hr IVPB Q12 RYLIE PRN Reason: Protocol Last Admin: 08/07/17 09:09 Dose: 100 mls/hr Acetaminophen (Ofirmev) 1,000 mg in 100 mls @ 400 mls/hr IVPB Q6H PRN PRN Reason: Pain, moderate (4-7) Stop: 08/09/17 07:49 Last Admin: 08/07/17 08:32 Dose: 400 mls/hr Vancomycin HCl (Vancomycin 1gm) 1 gm in 250 mls @ 167 mls/hr IVPB Q12 RYLIE PRN Reason: Protocol Last Admin: 08/07/17 10:13 Dose: 167 mls/hr Sodium Chloride (Sodium Chloride 0.9%) 1,000 mls @ 60 mls/hr IV .[id number] [facility] Levalbuterol HCl (Xopenex) 0.63 mg IH [id number] PRN PRN Reason: Shortness of Breath Last Admin: 08/07/17 07:28 Dose: 0.63 mg Ondansetron HCl (Zofran Inj) 4 mg IVP Q4H PRN PRN Reason: Nausea/Vomiting Pantoprazole Sodium (Protonix Susp) 40 mg PO ACB [facility] Last Admin: 08/07/17 09:09 Dose: 40 mg Physical Exam - Constitutional Appears: No Acute Distress, Chronically Ill - Head Exam Head Exam: NORMAL INSPECTION - Eye Exam Eye Exam: Normal appearance, PERRL - ENT Exam ENT Exam: Mucous Membranes Moist Additional comments: tongue with white coating, no ulcers or - Neck Exam Neck exam: Positive for: Normal Inspection - Respiratory Exam Respiratory Exam: Decreased Breath Sounds, Rhonchi Additional comments: right chest tube draining serosanguenous fluid - Cardiovascular Exam Cardiovascular Exam: REGULAR RHYTHM, +S1, +S2 - GI/Abdominal Exam GI & Abdominal Exam: Soft, Tenderness Additional comments: PEG patent - Extremities Exam Extremities exam: Positive for: pedal pulses present - Back Exam Back exam: NORMAL INSPECTION - Neurological Exam Neurological exam: Altered - Skin Skin Exam: Dry, Pallor, Warm - Additional Findings Additional findings: palliative performance scale rating 30% Results - Vital Signs Recent Vital Signs: Last Vital Signs Temp 97.5 F L 08/07/17 10:40 Pulse 53 L 08/07/17 10:40 Resp 51 H 08/07/17 10:40 BP 111/52 L 08/07/17 10:00 Pulse Ox 100 08/07/17 10:40 - Labs Result Diagrams: 08/07/17 05:20 08/07/17 05:20 Labs: Laboratory Results - last 24 hr 08/06/17 08/07/17 08/07/17 08:37 05:20 05:20 WBC 23.6 H D RBC 3.62 Hgb 10.3 L Hct 31.3 L MCV 86.5 MCH 28.5 MCHC 32.9 RDW 15.8 H Plt Count 196 MPV 11.2 H PT 12.6 H INR 1.10 H Sodium Potassium Chloride Carbon Dioxide Anion Gap BUN Creatinine Est GFR ( Amer) Est GFR (Non-Af Amer) Random Glucose Calcium Total Bilirubin AST ALT Alkaline Phosphatase Total Protein Albumin Globulin Albumin/Globulin Ratio Fluid Source Pleural/thoracentesi Fluid Appearance Bloody Fluid WBC 197.0 Fluid RBC 45825.0 H Fluid Tot Cell Count 100 H Fluid Neutrophils 79.2 H Fluid Lymphocytes 20.8 H Fld Monocyte/Macrophag TEST NOT PERFORMED Fluid Comment Turbid 08/07/17 05:20 WBC RBC Hgb Hct MCV MCH MCHC RDW Plt Count MPV PT INR Sodium 142 Potassium 3.8 Chloride 109 H Carbon Dioxide 25 Anion Gap 12 BUN 28 H Creatinine 0.9 Est GFR ( Amer) > 60 Est GFR (Non-Af Amer) > 60 Random Glucose 111 H Calcium 8.4 Total Bilirubin 0.6 AST 51 ALT 60 H Alkaline Phosphatase 104 Total Protein 5.5 L Albumin 2.7 L Globulin 2.7 Albumin/Globulin Ratio 1.0 L Fluid Source Fluid Appearance Fluid WBC Fluid RBC Fluid Tot Cell Count Fluid Neutrophils Fluid Lymphocytes Fld Monocyte/Macrophag Fluid Comment Assessment & Plan - Assessment and Plan (Free Text) Assessment: 87 year old male with history of CVA, pneumonia, dementia and dysphagia who is admitted with sepsis, bacteremia, right pneumothorax, s/p chest tube. Patient is lethargic. Diffuse lower abdominal tenderness upon palpation, also exacerbated with movement. Patients and daughter at bedside. Family speaks Faroese. Davis Elaine RN and I met with family. Ms Cannon is fluent in Faroese and was able to interpret our conversation. Family understands patient's medical condition and that prognosis is guarded. Resuscitation status discussed. 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 Family wants full resuscitative efforts at this time. Psychosocial support provided. Time spent with family in goals of care discussion, 20 minutes Plan: Palliative support in establishing goals of care. Patient to remain full code status Abdominal tenderness secondary to colitis. Empiric ABX/ vancomycin started. Will monitor for worsening symptoms. Acetaminophen IV as needed. May consider Tramadol. GI input appreciated Xerostemia: Saliva supplement
[2017-08-07] MEDS: Sodium Chloride 0.9% 1,000 ML IV SCH (12:41)
[2017-08-07] MEDS ORDERED: Saliva Substitute 44.3 ML PO PRN (13:08)
[2017-08-07] MEDS ORDERED: Morphine 2 mg/ml ISec IVP STA (20:25)
--- NOTE | 2017-08-08 00:53 | PN ---
DATE: 08/07/2017 REFERRING PHYSICIAN: Dr. Aguilar. SUBJECTIVE: He is lying in the bed, sleepy, arousable, not much verbal. Follows simple command. Cough is better. No hemoptysis. No hematemesis. Has a right-sided chest tube. Still has small air leak. No vomiting. No hematuria. Tolerating feeding well. No leg pain or leg swelling. OBJECTIVE: GENERAL: In no acute distress. VITAL SIGNS: Temp is 98, heart rate is 53, respiratory rate is 23, blood pressure 127/50, pulse ox of 99% on nasal cannula. HEENT: Moist mucous membrane. Crowded airway. NECK: Supple. No JVD. LUNGS: Have decreased breath sounds, scattered rhonchi. Has a right-sided chest tube. HEART: S1 and S2. ABDOMEN: Soft, nontender. No organomegaly. G-tube area looks okay. EXTREMITIES: There is no edema. NEUROLOGIC: Awake, alert. Follows simple command. MEDICATIONS: He is on Mucomyst 20% inhaled q.6 hours p.r.n., Aricept 5 mg at bedtime, Lipitor 40 mg daily, Lovenox 40 mg daily, meropenem 1 g IV q.12 hours, Tylenol suppository p.r.n., Protonix 40 mg a.c. breakfast, saliva substitute, IV fluid normal saline 60 mL per hour, Tylenol p.r.n., vancomycin 1 g IV q.12 hours, Xopenex inhaled q.6 hours, and Zofran on p.r.n. basis. LABORATORY DATA: Shows hemoglobin 10.3, hematocrit is 31.3, WBC 24,000, platelet is 196. INR 1.10. Sodium 142, potassium , chloride 109, bicarbonate 25, BUN 28, creatinine 0.9, glucose 111, calcium is 8.8. AST 51, ALT 60, alk phos is 104. Albumin is 2.7. Stool occult blood is positive. Fluid culture, there is no growth. Urine has E. coli. Chest x-ray done today shows small right apical pneumothorax. Chest tube remains in the place. IMPRESSION AND PLAN: Chronic obstructive lung disease, healthcare-associated pneumonia, hydropneumothorax requiring chest tube, history of cerebrovascular accident, dementia, oropharyngeal dysphagia with gastrostomy tube, resolving septic shock. Pulmonary point of view, doing okay. Continue antibiotics, bronchodilator. Continue with right-sided chest tube on suction. Continue gastrostomy tube feeding, gastric prophylaxis. SCD to lower extremity. Follow up ABG, chest x-ray, CBC, CMP in the morning. Critical care time, more than 35 minutes. Thank you and we will follow with you. Dl Lynch MD
[2017-08-08] MEDS: Acetylcysteine 20% Inhal Soln (4ml) IH PRN (01:42)
[2017-08-08] MEDS: Levalbuterol 0.63 MG/3 ML Inhal Soln UD IH PRN (01:42)
[2017-08-08] MEDS: Morphine 2 mg/ml ISec IVP PRN ×2 (02:58→09:26)
[2017-08-08 05:48] LABS: ARTERIAL BLOOD GAS HCO3 27.7 mmol/L (21-28); ARTERIAL BLOOD GAS HEMOGLOBIN 10.1 g/dL (11.7-17.4); ARTERIAL BLOOD GAS O2 CAPACITY 13.9 mL/dl (16-24); ARTERIAL BLOOD GAS O2 CONTENT 13.8 ML/dl (15-23); ARTERIAL BLOOD GAS O2 SAT 99.6 % (95-98); ARTERIAL BLOOD GAS PCO2 39 mm/Hg (35-45); ARTERIAL BLOOD GAS PH 7.46 (7.35-7.45); ARTERIAL BLOOD GAS TCO2 28.9 mmol.L (22-28)
[2017-08-08 06:02] LABS: HEMOGLOBIN 10.6 g/dL (14.0-18.0); MEAN CELL VOLUME 86.2 fl (80.0-105.0); MEAN CORPUSCULAR HEMOGLOBIN 28.2 pg (25.0-35.0); MEAN CORPUSCULAR HGB CONC 32.7 g/dl (31.0-37.0); MEAN PLATELET VOLUME 10.6 fl (7.0-11.0); RBC 3.76 10^6/uL (3.5-6.1); RED CELL DISTRIBUTION WIDTH 15.7 % (11.5-14.5); WHITE BLOOD COUNT 17.2 10^3/ul (4.5-11.0)
[2017-08-08 06:30] LABS: INR 1.12 (0.93-1.08); PROTHROMBIN TIME 12.9 SECONDS (9.4-12.5)
--- NOTE | 2017-08-08 07:18 | RAD ---
HISTORY: s/p chest tube, comparison COMPARISON: Portable chest 08/07/2017 FINDINGS: LUNGS: Right chest tube is unchanged in position with prior pneumothorax apparently resolved. None is appreciated this time bilaterally. Limited patchy atelectasis or infiltrate seen the mid to inferior left lung zone mildly. None is seen the right. No definite pleural effusion bilaterally. PLEURA: As above. CARDIOVASCULAR: Cardiomediastinal silhouette appears stable. No pulmonary vascular derangement identified. OSSEOUS STRUCTURES: No significant abnormalities. VISUALIZED UPPER ABDOMEN: Normal. OTHER FINDINGS: None. IMPRESSION: Limited prior right pneumothorax appears resolved at this time. Chest tube unchanged in position. Limited patchy atelectasis or infiltrate is seen at the mid to inferior left lung zone.
--- NOTE | 2017-08-08 07:28 | CP.CCUPN ---
<Aman Chahal - Last Filed: 08/08/17 10:38> CCU Subjective - Physician Review Subjective (Free Text): Aman Chahal PGY1 ICU Note for Dr. Crockett Patient was seen and examined in ICU. Patient is more awake and responsive and is responding appropriately. He is more verbal today and able to follow commands and is communicating appropriately in Togolese. The patient still has RLQ tenderness on exam but no reported n/v/d. No fevers overnight. CCU Objective - Vital Signs / Intake & Output Vital Signs (Last 4 hours): Vital Signs Temp Pulse Resp BP 08/08/17 06:02 97.7 F 54 L 22 08/08/17 06:01 97.7 F 53 L 30 H 08/08/17 06:00 134/61 08/08/17 05:59 97.7 F 53 L 24 08/08/17 05:58 97.7 F 57 L 13 08/08/17 05:57 97.9 F 55 L 13 08/08/17 05:56 97.7 F 53 L 19 08/08/17 05:55 97.9 F 55 L 13 08/08/17 05:54 97.9 F 55 L 12 08/08/17 05:53 97.7 F 54 L 12 08/08/17 05:52 97.7 F 57 L 23 08/08/17 05:51 97.7 F 55 L 19 08/08/17 05:50 97.7 F 55 L 08/08/17 05:49 97.7 F 55 L 13 08/08/17 05:48 97.7 F 55 L 18 08/08/17 05:47 97.7 F 58 L 11 L 08/08/17 05:46 97.7 F 56 L 20 08/08/17 05:45 97.7 F 58 L 31 H 08/08/17 05:44 97.7 F 59 L 18 08/08/17 05:43 97.7 F 62 36 H 08/08/17 05:42 97.7 F 58 L 23 08/08/17 05:41 97.7 F 58 L 64 H 08/08/17 05:40 97.7 F 58 L 18 08/08/17 05:39 97.7 F 62 25 H 08/08/17 05:38 97.7 F 61 17 08/08/17 05:37 97.9 F 60 14 08/08/17 05:36 97.9 F 62 11 L 08/08/17 05:35 61 14 08/08/17 05:34 72 18 08/08/17 05:33 79 20 08/08/17 05:32 66 18 08/08/17 05:31 63 17 08/08/17 05:30 60 22 08/08/17 05:29 59 L 24 08/08/17 05:28 61 12 08/08/17 05:27 62 23 08/08/17 05:26 62 29 H 08/08/17 05:25 64 22 08/08/17 05:24 60 18 08/08/17 05:23 61 19 08/08/17 05:22 97.7 F 64 18 08/08/17 05:21 97.7 F 62 24 08/08/17 05:20 97.7 F 57 L 13 08/08/17 05:19 97.7 F 56 L 13 08/08/17 05:18 97.7 F 59 L 14 08/08/17 05:17 97.7 F 57 L 16 08/08/17 05:16 97.7 F 59 L 14 08/08/17 05:15 97.7 F 59 L 13 08/08/17 05:14 97.7 F 59 L 13 08/08/17 05:13 97.9 F 61 13 Intake and Output (Last 8hrs): Intake & Output 08/07/17 08/08/17 08/08/17 22:59 06:59 14:59 Intake Total 720 Output Total 540 Balance 180 Intake: IV 720 Left Wrist 720 Output: Chest Tube Drainage 40 Right Lateral Chest 40 Urine 500 Urethral (Otero) 500 Other: # Bowel Movements 2 - Physical Exam Head: Positive for: Atraumatic, Normocephalic Pupils: Positive for: PERRL, Other (b/l cataracts) Conjunctiva: Positive for: Other Mouth: Positive for: Dry Neck: Positive for: Normal Range of Motion Respiratory/Chest: Positive for: Clear to Auscultation (b/l), Good Air Exchange , Other (on 3L NC). Negative for: Respiratory Distress, Accessory Muscle Use, Wheezes, Rales, Retracting, Rhonchi Cardiovascular: Positive for: Regular Rate and Rhythm, Normal S1, S2. Negative for: Murmurs Abdomen: Positive for: Tenderness (RLQ to deep palpation), Normal Bowel Sounds, Guarding, Other (PEG tube in place). Negative for: Distention, Peritoneal Signs Genitourinary Male: Positive for: Normal External Genitalia, Other (otero catheter in place). Negative for: Circumcised Penis Back: Positive for: Normal Inspection Upper Extremity: Positive for: Normal Inspection. Negative for: Cyanosis, Edema Lower Extremity: Positive for: Normal Inspection, Other (decreased muscle mass. No edema. No sign of soft tissue infection.). Negative for: Edema Neurological: Positive for: Motor Func Grossly Intact, Other (follows simple commands ). Negative for: GCS=15 (13 [id number]), Speech Normal Skin: Positive for: Warm, Dry, Normal Color. Negative for: Rashes Lymphatic: Positive for: OX3, NI, NC Psychiatric: Positive for: Other (unable to express, nonverbal) - Medications Active Medications: Active Medications Generic Name Dose Route Start Last Admin Trade Name Freq PRN Reason Stop Dose Admin Acetaminophen 650 mg 08/07/17 07:49 Tylenol 650 Mg Supp RC Q6H PRN Fever >100.4 F Acetylcysteine 4 ml 08/06/17 17:47 08/08/17 01:42 Acetylcysteine 20% IH 4 ml [id number] PRN Administration Cough and congestion Atorvastatin Calcium 40 mg 08/05/17 17:00 08/07/17 17:49 Lipitor PO 40 mg DIN RYLIE Administration Donepezil HCl 5 mg 08/05/17 22:00 08/07/17 21:49 Aricept PO 5 mg HS RYLIE Administration Enoxaparin Sodium 40 mg 08/05/17 10:00 08/07/17 09:28 Lovenox SC 40 mg DAILY RYLIE Administration Protocol Meropenem/Sodium Chloride 1 gm in 100 mls @ 100 mls/hr 08/05/17 10:15 21:49 Meropenem 1g/Ns 100ml Ivpb IVPB 100 mls/hr Q12 RYLIE Administration Protocol Acetaminophen 1,000 mg in 100 mls @ 400 mls/hr 08/07/17 07:48 08/07/17 18:59 Ofirmev IVPB 08/09/17 07:49 400 mls/hr Q6H PRN Administration Pain, moderate (4-7) Vancomycin HCl 1 gm in 250 mls @ 167 mls/hr 08/07/17 10:00 08/07/17 21:49 Vancomycin 1gm IVPB 167 mls/hr Q12 RYLIE Administration Protocol Sodium Chloride 1,000 mls @ 60 mls/hr 08/07/17 11:15 08/07/17 12:41 Sodium Chloride 0.9% IV 60 mls/hr .[id number] RYLIE Administration Levalbuterol HCl 0.63 mg 08/06/17 17:47 08/08/17 01:42 Xopenex IH 0.63 mg [id number] PRN Administration Shortness of Breath Morphine Sulfate 2 mg 08/08/17 02:09 08/08/17 02:58 Morphine IVP 2 mg Q6H PRN Administration Pain, severe (8-10) Ondansetron HCl 4 mg 08/07/17 11:00 Zofran Inj IVP Q4H PRN Nausea/Vomiting Pantoprazole Sodium 40 mg 08/06/17 09:15 08/07/17 09:09 Protonix Susp PO 40 mg ACB RYLIE Administration Saliva Substitute 10 ml 08/07/17 13:08 Saliva Substitute PO 08/13/17 23:59 Q4H PRN Xerostomia - Patient Studies Lab Studies: Microbiology Studies 08/05/17 20:30 MRSA Culture (Admit) - Final Naris MRSA NOT DETECTED 08/06/17 06:15 Ova and Parasite Concentrate Exam - Final Rectum 08/06/17 09:00 Gram Stain - Final Pleural Fluid 08/04/17 22:38 Urine Culture - Final Urine,Clean Catch Escherichia Coli Lab Studies 08/08/17 08/08/17 08/08/17 Range/Units 05:30 05:30 05:30 WBC 17.2 H D (4.5-11.0) 10^3/ul RBC 3.76 (3.5-6.1) 10^6/uL Hgb 10.6 L (14.0-18.0) g/dL Hct 32.4 L (42.0-52.0) % MCV 86.2 (80.0-105.0) fl MCH 28.2 (25.0-35.0) pg MCHC 32.7 (31.0-37.0) g/dl RDW 15.7 H (11.5-14.5) % Plt Count 194 (120.0-450.0) 10^3/uL MPV 10.6 (7.0-11.0) fl PT 12.9 H (9.4-12.5) SECONDS INR 1.12 H (0.93-1.08) pCO2 39 (35-45) mm/Hg pO2 87.0 (80-100) mm/Hg HCO3 27.7 (21-28) mmol/L ABG pH 7.46 H (7.35-7.45) ABG Total CO2 28.9 H (22-28) mmol.L ABG O2 Saturation 99.6 H (95-98) % ABG O2 Content 13.8 L (15-23) ML/dl ABG Base Excess 3.6 H (-2.0-3.0) mmol/L ABG Hemoglobin 10.1 L (11.7-17.4) g/dL ABG Carboxyhemoglobin 2.2 H (0.5-1.5) % POC ABG HHb (Measured) 0.4 (0-5) % ABG Methemoglobin 1.2 (0.0-3.0) % ABG O2 Capacity 13.9 L (16-24) mL/dl Hgb O2 Saturation 96.1 (95.0-98.0) % FiO2 32.0 % Fluid Source Fluid Appearance (CLEAR) Fluid WBC (0.0-300.0) /uL Fluid RBC (0.0-0.0) /uL Fluid Tot Cell Count (0-0) Fluid Neutrophils (0-0) % Fluid Lymphocytes (0-0) % Fld Monocyte/Macrophag Fluid Comment 08/06/17 Range/Units 08:37 WBC (4.5-11.0) 10^3/ul RBC (3.5-6.1) 10^6/uL Hgb (14.0-18.0) g/dL Hct (42.0-52.0) % MCV (80.0-105.0) fl MCH (25.0-35.0) pg MCHC (31.0-37.0) g/dl RDW (11.5-14.5) % Plt Count (120.0-450.0) 10^3/uL MPV (7.0-11.0) fl PT (9.4-12.5) SECONDS INR (0.93-1.08) pCO2 (35-45) mm/Hg pO2 (80-100) mm/Hg HCO3 (21-28) mmol/L ABG pH (7.35-7.45) ABG Total CO2 (22-28) mmol.L ABG O2 Saturation (95-98) % ABG O2 Content (15-23) ML/dl ABG Base Excess (-2.0-3.0) mmol/L ABG Hemoglobin (11.7-17.4) g/dL ABG Carboxyhemoglobin (0.5-1.5) % POC ABG HHb (Measured) (0-5) % ABG Methemoglobin (0.0-3.0) % ABG O2 Capacity (16-24) mL/dl Hgb O2 Saturation (95.0-98.0) % FiO2 % Fluid Source Pleural/thoracentesi Fluid Appearance Bloody (CLEAR) Fluid WBC 197.0 (0.0-300.0) /uL [place] [address].0 H (0.0-0.0) /uL Fluid Tot Cell Count 100 H (0-0) Fluid Neutrophils 79.2 H (0-0) % Fluid Lymphocytes 20.8 H (0-0) % Fld Monocyte/Macrophag TEST NOT PERFORMED Fluid Comment Turbid Laboratory Results - last 24 hr 08/06/17 08/08/17 08/08/17 08:37 05:30 05:30 WBC 17.2 H D RBC 3.76 Hgb 10.6 L Hct 32.4 L MCV 86.2 MCH 28.2 MCHC 32.7 RDW 15.7 H Plt Count 194 MPV 10.6 PT 12.9 H INR 1.12 H pCO2 pO2 HCO3 ABG pH ABG Total CO2 ABG O2 Saturation ABG O2 Content ABG Base Excess ABG Hemoglobin ABG Carboxyhemoglobin POC ABG HHb (Measured) ABG Methemoglobin ABG O2 Capacity Hgb O2 Saturation FiO2 Fluid Source Pleural/thoracentesi Fluid Appearance Bloody Fluid WBC 197.0 Fluid RBC 44097.0 H Fluid Tot Cell Count 100 H Fluid Neutrophils 79.2 H Fluid Lymphocytes 20.8 H Fld Monocyte/Macrophag TEST NOT PERFORMED Fluid Comment Turbid 08/08/17 05:30 WBC RBC Hgb Hct MCV MCH MCHC RDW Plt Count MPV PT INR pCO2 39 pO2 87.0 HCO3 27.7 ABG pH 7.46 H ABG Total CO2 28.9 H ABG O2 Saturation 99.6 H ABG O2 Content 13.8 L ABG Base Excess 3.6 H ABG Hemoglobin 10.1 L ABG Carboxyhemoglobin 2.2 H POC ABG HHb (Measured) 0.4 ABG Methemoglobin 1.2 ABG O2 Capacity 13.9 L Hgb O2 Saturation 96.1 FiO2 32.0 Fluid Source Fluid Appearance Fluid WBC Fluid RBC Fluid Tot Cell Count Fluid Neutrophils Fluid Lymphocytes Fld Monocyte/Macrophag Fluid Comment Fingerstick Blood Sugar Results: 124 Review of Systems - Review of Systems Systems not reviewed;Unavailable: Dementia Critical Care Progress Note - Extremities/Vascular Does the Patient have a Central Venous Catheter?: No Does the Patient need a Central Venous Catheter?: No Does the Patient have a Otero Catheter?: Yes Does the Patient need a Otero Catheter?: Yes - Prophylaxis GI Prophylaxis GI: PPI - Prophylaxis DVT Prophylaxis DVT: Lovenox, SCDs Assessment/Plan - Assessment and Plan (Free Text) Assessment: 87yo Male with a PMH of prior CVA, progressive dementia, dysphagia s/p PEG tube placement, COPD and recent admission for pneumonia who presented to [facility] with altered mental status and found to be in severe sepsis 2/2 UTI w/ ESBL. Code stroke was called but later cancelled due to negative CT. R Subclavian TLC was placed in ED. CXR showed moderate right hydro-pneumothorax. TLC was removed and patient was transferred to ICU. R sided chest tube was placed on 08/06 and around 2 L serosanguinous fluid overall has been removed. Post-procedure CXR showed interval improvement. WBC has been trending down and is responding appropriately to antibiotics covering ESBL. Plan: Neuro: - improved mental status this morning - will monitor for any signs of mental status changes - prior CT's of head have shown numerous basal ganglia, thalamic and b/l pontine lacunar infarcts - maintain normothermia - Aricept HS - patient remains full code at this point per family; DNI was rescinded by family - palliative care consulted - morphine prn pain Cardio: - BP stable off fluids or pressors - monitor VS for any changes - maintain BP around 120-150/70-90 - cont home Lipitor - Lopressor stopped due to bradycardia - DVT ppx - echo was cancelled due to prior Echo in 05/2017 that showed mild LVH but normal function w/ LVEF 63% Pulm: - s/p R chest tube confirmed location by CXR, off suction today - per surgery, put on water suction due to resolved pneumothorax - pleural fluid sent for analysis including cultures, cytology, LDH, protein, glucose, pH, TG - xopenex and mucomyst improving breathing - O2 Sat is satisfactory on NC - OOB as tolerated - monitor O2 sat and VS - Pulm consulted, appreciate the recs GI: - PEG placement on last admission due to dysphagia (unclear if from CVA or progressive dementia) - abdomen is tender and patient is guarding - CT abdomen/pelvis showed tephlitis, will hold tube feeds until cleared by GI - will obtain CT A/P w/ PO and IV contrast to r/o abscess and evaluate tephlitis - GI consulted, recs appreciated - GI ppx - c.diff negative; ova and parasites negative Renal: - otero catheter in place - monitor I/O - renal function stable - monitor for electrolyte abnormalities and manage appropriately Heme/Onc: - stool occult blood + likely 2/2 tephlitis - monitor for changes in H/H - H/H stable at this time likely dropped due to bloody pleural effusion and tephlitis ID: - blood cultures negative x72 hrs - urine culture is positive for ESBL - cdiff negative - pleural fluid cultures and analysis ordered, so far workup is unremarkable with no prominent WBCs - procal 90 - patient on Vancomycin, Meropenem - cont IV Tylenol for fevers - Lactate is downtrending; patient hasn't had fever in more than 24 hrs - cont to monitor for signs of worsening infection - maintain normothermia - Tylenol PRN fevers Endo: - maintain euglycemia - A1C and TSH were WNL Diet: hold tube feeds, NPO for dysphagia GI ppx: PTX DVT ppx: Lovenox and SCDs Dispo: Patient currently stable; LTAC discussed w/ SW and family pending acceptance. Patient is hemodynamically stable and is awake and alert at baseline , and is sufficiently breathing on NC. Patient was seen, examined and discussed with attending, Dr. Keira Chahal PGY1 Pager # [phone] <Brandt Crockett - Last Filed: 08/08/17 11:15> CCU Objective - Vital Signs / Intake & Output Vital Signs (Last 4 hours): Vital Signs Temp Pulse Resp BP Pulse Ox 08/08/17 10:44 64 08/08/17 10:10 99 08/08/17 10:03 98.6 F 66 98 08/08/17 10:00 98.6 F 62 20 128/56 L 99 08/08/17 09:50 98.4 F 66 14 98 08/08/17 09:40 98.4 F 66 13 98 08/08/17 09:30 98.4 F 62 14 98 08/08/17 09:20 98.4 F 63 17 99 08/08/17 09:10 98.4 F 61 17 99 08/08/17 09:00 98.2 F 60 14 139/62 98 08/08/17 08:50 98.2 F 64 14 92 L 08/08/17 08:40 98.2 F 60 14 95 08/08/17 08:30 98.2 F 60 14 91 L 08/08/17 08:20 98.1 F 66 18 92 L 08/08/17 08:10 98.1 F 61 17 94 L 08/08/17 08:00 98.1 F 60 14 143/57 L 93 L 08/08/17 07:50 98.1 F 65 14 93 L 08/08/17 07:42 98.1 F 59 L 98 08/08/17 07:40 98.1 F 57 L 18 98 08/08/17 07:37 98.1 F 60 99 08/08/17 07:30 97.9 F 58 L 27 H 98 08/08/17 07:20 97.9 F 57 L 19 99 Intake and Output (Last 8hrs): Intake & Output 08/07/17 08/08/17 08/08/17 22:59 06:59 14:59 Intake Total 720 Output Total 540 Balance 180 Intake: IV 720 Left Wrist 720 Output: Chest Tube Drainage 40 Right Lateral Chest 40 Urine 500 Urethral (Otero) 500 Other: # Bowel Movements 2 - Medications Active Medications: Active Medications Generic Name Dose Route Start Last Admin Trade Name Freq PRN Reason Stop Dose Admin Acetaminophen 650 mg 08/07/17 07:49 Tylenol 650 Mg Supp RC Q6H PRN Fever >100.4 F Acetylcysteine 4 ml 08/06/17 17:47 08/08/17 01:42 Acetylcysteine 20% IH 4 ml [id number] PRN Administration Cough and congestion Atorvastatin Calcium 40 mg 08/05/17 17:00 08/07/17 17:49 Lipitor PO 40 mg DIN RYLIE Administration Donepezil HCl 5 mg 08/05/17 22:00 08/07/17 21:49 Aricept PO 5 mg HS RYLIE Administration Enoxaparin Sodium 40 mg 08/05/17 10:00 08/08/17 09:20 Lovenox SC 40 mg DAILY RYLIE Administration Protocol Meropenem/Sodium Chloride 1 gm in 100 mls @ 100 mls/hr 08/05/17 10:15 09:21 Meropenem 1g/Ns 100ml Ivpb IVPB 100 mls/hr Q12 RYLIE Administration Protocol Acetaminophen 1,000 mg in 100 mls @ 400 mls/hr 08/07/17 07:48 08/07/17 18:59 Ofirmev IVPB 08/09/17 07:49 400 mls/hr Q6H PRN Administration Pain, moderate (4-7) Vancomycin HCl 1 gm in 250 mls @ 167 mls/hr 08/07/17 10:00 08/08/17 09:21 Vancomycin 1gm IVPB 167 mls/hr Q12 RYLIE Administration Protocol Sodium Chloride 1,000 mls @ 60 mls/hr 08/07/17 11:15 08/08/17 09:25 Sodium Chloride 0.9% IV 60 mls/hr .[id number] RYLIE Administration Levalbuterol HCl 0.63 mg 08/06/17 17:47 08/08/17 01:42 Xopenex IH 0.63 mg [id number] PRN Administration Shortness of Breath Morphine Sulfate 1 mg 08/08/17 10:37 Morphine IVP Q6H PRN Pain, severe (8-10) Ondansetron HCl 4 mg 08/07/17 11:00 Zofran Inj IVP Q4H PRN Nausea/Vomiting Pantoprazole Sodium 40 mg 08/06/17 09:15 08/08/17 09:24 Protonix Susp PO 40 mg ACB RYLIE Administration Saliva Substitute 10 ml 08/07/17 13:08 Saliva Substitute PO 08/13/17 23:59 Q4H PRN Xerostomia - Patient Studies Lab Studies: Microbiology Studies 08/05/17 20:30 MRSA Culture (Admit) - Final Naris MRSA NOT DETECTED 08/06/17 06:15 Ova and Parasite Concentrate Exam - Final Rectum 08/06/17 09:00 Gram Stain - Final Pleural Fluid 08/04/17 22:38 Urine Culture - Final Urine,Clean Catch Escherichia Coli Lab Studies 08/08/17 08/08/17 08/08/17 Range/Units 05:30 05:30 05:30 WBC (4.5-11.0) 10^3/ul RBC (3.5-6.1) 10^6/uL Hgb (14.0-18.0) g/dL Hct (42.0-52.0) % MCV (80.0-105.0) fl MCH (25.0-35.0) pg MCHC (31.0-37.0) g/dl RDW (11.5-14.5) % Plt Count (120.0-450.0) 10^3/uL MPV (7.0-11.0) fl PT 12.9 H (9.4-12.5) SECONDS INR 1.12 H (0.93-1.08) pCO2 39 (35-45) mm/Hg pO2 87.0 (80-100) mm/Hg HCO3 27.7 (21-28) mmol/L ABG pH 7.46 H (7.35-7.45) ABG Total CO2 28.9 H (22-28) mmol.L ABG O2 Saturation 99.6 H (95-98) % ABG O2 Content 13.8 L (15-23) ML/dl ABG Base Excess 3.6 H (-2.0-3.0) mmol/L ABG Hemoglobin 10.1 L (11.7-17.4) g/dL ABG Carboxyhemoglobin 2.2 H (0.5-1.5) % POC ABG HHb (Measured) 0.4 (0-5) % ABG Methemoglobin 1.2 (0.0-3.0) % ABG O2 Capacity 13.9 L (16-24) mL/dl Hgb O2 Saturation 96.1 (95.0-98.0) % FiO2 32.0 % Sodium 143 (132-148) mmol/L Potassium 4.0 (3.6-5.0) mmol/L Chloride 109 H (98-107) mmol/L Carbon Dioxide 28 (21-33) mmol/L Anion Gap 11 (10-20) BUN 16 (7-21) mg/dL Creatinine 0.8 (0.8-1.5) mg/dl Est GFR ( Amer) > 60 Est GFR (Non-Af Amer) > 60 Random Glucose 92 (70-110) mg/dL Calcium 8.5 (8.4-10.5) mg/dL Total Bilirubin 0.8 (0.2-1.3) mg/dL AST 36 (17-59) U/L ALT 51 (7-56) U/L Alkaline Phosphatase 83 (38-126) U/L Total Protein 5.6 L (5.8-8.3) g/dL Albumin 2.8 L (3.0-4.8) g/dL Globulin 2.8 gm/dL Albumin/Globulin Ratio 1.0 L (1.1-1.8) 08/08/17 Range/Units 05:30 WBC 17.2 H D (4.5-11.0) 10^3/ul RBC 3.76 (3.5-6.1) 10^6/uL Hgb 10.6 L (14.0-18.0) g/dL Hct 32.4 L (42.0-52.0) % MCV 86.2 (80.0-105.0) fl MCH 28.2 (25.0-35.0) pg MCHC 32.7 (31.0-37.0) g/dl RDW 15.7 H (11.5-14.5) % Plt Count 194 (120.0-450.0) 10^3/uL MPV 10.6 (7.0-11.0) fl PT (9.4-12.5) SECONDS INR (0.93-1.08) pCO2 (35-45) mm/Hg pO2 (80-100) mm/Hg HCO3 (21-28) mmol/L ABG pH (7.35-7.45) ABG Total CO2 (22-28) mmol.L ABG O2 Saturation (95-98) % ABG O2 Content (15-23) ML/dl ABG Base Excess (-2.0-3.0) mmol/L ABG Hemoglobin (11.7-17.4) g/dL ABG Carboxyhemoglobin (0.5-1.5) % POC ABG HHb (Measured) (0-5) % ABG Methemoglobin (0.0-3.0) % ABG O2 Capacity (16-24) mL/dl Hgb O2 Saturation (95.0-98.0) % FiO2 % Sodium (132-148) mmol/L Potassium (3.6-5.0) mmol/L Chloride (98-107) mmol/L Carbon Dioxide (21-33) mmol/L Anion Gap (10-20) BUN (7-21) mg/dL Creatinine (0.8-1.5) mg/dl Est GFR ( Amer) Est GFR (Non-Af Amer) Random Glucose (70-110) mg/dL Calcium (8.4-10.5) mg/dL Total Bilirubin (0.2-1.3) mg/dL AST (17-59) U/L ALT (7-56) U/L Alkaline Phosphatase (38-126) U/L Total Protein (5.8-8.3) g/dL Albumin (3.0-4.8) g/dL Globulin gm/dL Albumin/Globulin Ratio (1.1-1.8) Laboratory Results - last 24 hr 08/08/17 08/08/17 08/08/17 05:30 05:30 05:30 WBC 17.2 H D RBC 3.76 Hgb 10.6 L Hct 32.4 L MCV 86.2 MCH 28.2 MCHC 32.7 RDW 15.7 H Plt Count 194 MPV 10.6 PT 12.9 H INR 1.12 H pCO2 pO2 HCO3 ABG pH ABG Total CO2 ABG O2 Saturation ABG O2 Content ABG Base Excess ABG Hemoglobin ABG Carboxyhemoglobin POC ABG HHb (Measured) ABG Methemoglobin ABG O2 Capacity Hgb O2 Saturation FiO2 Sodium 143 Potassium 4.0 Chloride 109 H Carbon Dioxide 28 Anion Gap 11 BUN 16 Creatinine 0.8 Est GFR ( Amer) > 60 Est GFR (Non-Af Amer) > 60 Random Glucose 92 Calcium 8.5 Total Bilirubin 0.8 AST 36 ALT 51 Alkaline Phosphatase 83 Total Protein 5.6 L Albumin 2.8 L Globulin 2.8 Albumin/Globulin Ratio 1.0 L 08/08/17 05:30 WBC RBC Hgb Hct MCV MCH MCHC RDW Plt Count MPV PT INR pCO2 39 pO2 87.0 HCO3 27.7 ABG pH 7.46 H ABG Total CO2 28.9 H ABG O2 Saturation 99.6 H ABG O2 Content 13.8 L ABG Base Excess 3.6 H ABG Hemoglobin 10.1 L ABG Carboxyhemoglobin 2.2 H POC ABG HHb (Measured) 0.4 ABG Methemoglobin 1.2 ABG O2 Capacity 13.9 L Hgb O2 Saturation 96.1 FiO2 32.0 Sodium Potassium Chloride Carbon Dioxide Anion Gap BUN Creatinine Est GFR ( Amer) Est GFR (Non-Af Amer) Random Glucose Calcium Total Bilirubin AST ALT Alkaline Phosphatase Total Protein Albumin Globulin Albumin/Globulin Ratio Assessment/Plan - Assessment and Plan (Free Text) Assessment: Patient seen and examined on rounds this morning with resident, agree with note with following additions/exceptions: Patient is is 87yo male with severe dementia, dysphagia s/p PEG tube placement, COPD, admitted to MICU for R hydropneumothorax, and UTI/Sepsis. Currently the patient is afebrile, HD stable, off pressors, in NAD, comfortable , at baseline mental status, sat 100% Awaiting cytology of pleural fluid, ID is following, surgery is following. CXR with no evidence of PTX today. CT in place on water seal. Palliative care consulted, patient is full code Hydropneumothorax, s/p CT UTI/Sepsis Dehydraiton COPD Dysphagia s.p PEG Hx of CVA Recommend: - supp o2 as needed - IVF hydration - CT to water seal - Daily CXR - follow up surgery - follow up pleural fluid cytology and pleural fluid LDH, Protein - cont with antibiotics as per ID - CT A/P as per ID - monitor renal function - palliative care follow up - GI ppx - DVT ppx - stable, transfer to medical floor
--- NOTE | 2017-08-08 07:29 | CP.PCM.PN ---
Subjective - Date & Time of Evaluation Date of Evaluation: 08/08/17 Time of Evaluation: 07:22 - Subjective Subjective: Surgery: Dr. Vizcaino Patient remains in ICU. Doing well. No respiratory distress. No complaints. Objective - Vital Signs/Intake and Output Vital Signs (last 24 hours): Temp Pulse Resp BP Pulse Ox 97.7 F 54 L 22 134/61 100 08/08/17 06:02 08/08/17 06:02 08/08/17 06:02 08/08/17 06:00 08/07/17 19:20 - Medications Medications: Current Medications Acetaminophen (Tylenol 650 Mg Supp) 650 mg RC Q6H PRN PRN Reason: Fever >100.4 F Acetylcysteine (Acetylcysteine 20%) 4 ml IH [id number] PRN PRN Reason: Cough and congestion Last Admin: 08/08/17 01:42 Dose: 4 ml Atorvastatin Calcium (Lipitor) 40 mg PO DIN [facility] Last Admin: 08/07/17 17:49 Dose: 40 mg Donepezil HCl (Aricept) 5 mg PO HS [facility] Last Admin: 08/07/17 21:49 Dose: 5 mg Enoxaparin Sodium (Lovenox) 40 mg SC DAILY RYLIE PRN Reason: Protocol Last Admin: 08/07/17 09:28 Dose: 40 mg Meropenem/Sodium Chloride (Meropenem 1g/Ns 100ml Ivpb) 1 gm in 100 mls @ 100 mls/hr IVPB Q12 RYLIE PRN Reason: Protocol Last Admin: 08/07/17 21:49 Dose: 100 mls/hr Acetaminophen (Ofirmev) 1,000 mg in 100 mls @ 400 mls/hr IVPB Q6H PRN PRN Reason: Pain, moderate (4-7) Stop: 08/09/17 07:49 Last Admin: 08/07/17 18:59 Dose: 400 mls/hr Vancomycin HCl (Vancomycin 1gm) 1 gm in 250 mls @ 167 mls/hr IVPB Q12 RYLIE PRN Reason: Protocol Last Admin: 08/07/17 21:49 Dose: 167 mls/hr Sodium Chloride (Sodium Chloride 0.9%) 1,000 mls @ 60 mls/hr IV .[id number] [facility] Last Admin: 08/07/17 12:41 Dose: 60 mls/hr Levalbuterol HCl (Xopenex) 0.63 mg IH [id number] PRN PRN Reason: Shortness of Breath Last Admin: 08/08/17 01:42 Dose: 0.63 mg Morphine Sulfate (Morphine) 2 mg IVP Q6H PRN PRN Reason: Pain, severe (8-10) Last Admin: 08/08/17 02:58 Dose: 2 mg Ondansetron HCl (Zofran Inj) 4 mg IVP Q4H PRN PRN Reason: Nausea/Vomiting Pantoprazole Sodium (Protonix Susp) 40 mg PO ACB RYLIE Last Admin: 08/07/17 09:09 Dose: 40 mg Saliva Substitute (Saliva Substitute) 10 ml PO Q4H PRN PRN Reason: Xerostomia Stop: 08/13/17 23:59 - Labs Labs: 08/08/17 05:30 08/07/17 05:20 PT 12.9 SECONDS (9.4-12.5) H 08/08/17 05:30 INR 1.12 (0.93-1.08) H 08/08/17 05:30 APTT 32.2 Seconds (25.1-36.5) 08/04/17 20:57 - Constitutional Appears: Non-toxic, No Acute Distress - Head Exam Head Exam: ATRAUMATIC, NORMOCEPHALIC - Eye Exam Eye Exam: EOMI, Normal appearance - ENT Exam ENT Exam: Mucous Membranes Moist - Respiratory Exam Respiratory Exam: NORMAL BREATHING PATTERN. absent: Respiratory Distress - Cardiovascular Exam Cardiovascular Exam: REGULAR RHYTHM. absent: Tachycardia - Neurological Exam Neurological Exam: Alert, Awake - Skin Skin Exam: Dry, Normal Color, Warm Assessment and Plan - Assessment and Plan (Free Text) Assessment: 87 y/o male with hydropneumothorax s/p chest tube placement Plan: -apical pneumothorax appears resolved on CXR this am -place Chest tube on water seal -repeat CXR in am -if patient desats, or develops respiratory distress place chest tube back on wall suction -cont pulmonary toilet -cont IS use -if pneumothorax remains resolved may consider removal of Chest tube 08/09 -further recs per Dr. Carrillo Nguyen PGY3
[2017-08-08 07:48] LABS: ALBUMIN 2.8 g/dL (3.0-4.8); ALT/SGPT 51 U/L (7-56); AST/SGOT 36 U/L (17-59); BLOOD UREA NITROGEN 16 mg/dL (7-21); CALCIUM 8.5 mg/dL (8.4-10.5); GFR AFRICAN-AMERICAN > 60; GFR NON-AFRICAN AMERICAN > 60
[2017-08-08] MEDS: Enoxaparin 40 mg Syringe SC SCH (09:20)
[2017-08-08] MEDS: Meropenem 1g/NS 100mL IVPB 1 GM/100 ML PIGGYBACK IVPB SCH ×2 (09:21→21:10)
[2017-08-08] MEDS: Vancomycin 1gm in NS 250ml 1 GM/250 ML BAG IVPB SCH ×2 (09:21→21:10)
[2017-08-08] MEDS: Pantoprazole 40 mg Susp UD PO SCH (09:24)
[2017-08-08] MEDS: Sodium Chloride 0.9% 1,000 ML IV SCH (09:25)
--- NOTE | 2017-08-08 09:59 | CP.PCM.PN ---
Subjective - Date & Time of Evaluation Date of Evaluation: 08/08/17 Time of Evaluation: 09:20 - Subjective Subjective: Still having abdominal pain on the right side, still with chest tube. No fevers overnight, no vomiting. Objective - Vital Signs/Intake and Output Vital Signs (last 24 hours): Temp Pulse Resp BP Pulse Ox 97.7 F 54 L 22 134/61 100 08/08/17 06:02 08/08/17 06:02 08/08/17 06:02 08/08/17 06:00 08/07/17 19:20 - Medications Medications: Current Medications Acetaminophen (Tylenol 650 Mg Supp) 650 mg RC Q6H PRN PRN Reason: Fever >100.4 F Acetylcysteine (Acetylcysteine 20%) 4 ml IH [id number] PRN PRN Reason: Cough and congestion Last Admin: 08/08/17 01:42 Dose: 4 ml Atorvastatin Calcium (Lipitor) 40 mg PO DIN [facility] Last Admin: 08/07/17 17:49 Dose: 40 mg Donepezil HCl (Aricept) 5 mg PO HS [facility] Last Admin: 08/07/17 21:49 Dose: 5 mg Enoxaparin Sodium (Lovenox) 40 mg SC DAILY [facility] PRN Reason: Protocol Last Admin: 08/07/17 09:28 Dose: 40 mg Meropenem/Sodium Chloride (Meropenem 1g/Ns 100ml Ivpb) 1 gm in 100 mls @ 100 mls/hr IVPB Q12 [facility] PRN Reason: Protocol Last Admin: 08/07/17 21:49 Dose: 100 mls/hr Acetaminophen (Ofirmev) 1,000 mg in 100 mls @ 400 mls/hr IVPB Q6H PRN PRN Reason: Pain, moderate (4-7) Stop: 08/09/17 07:49 Last Admin: 08/07/17 18:59 Dose: 400 mls/hr Vancomycin HCl (Vancomycin 1gm) 1 gm in 250 mls @ 167 mls/hr IVPB Q12 [facility] PRN Reason: Protocol Last Admin: 08/07/17 21:49 Dose: 167 mls/hr Sodium Chloride (Sodium Chloride 0.9%) 1,000 mls @ 60 mls/hr IV .[id number] [facility] Last Admin: 08/07/17 12:41 Dose: 60 mls/hr Levalbuterol HCl (Xopenex) 0.63 mg IH [id number] PRN PRN Reason: Shortness of Breath Last Admin: 08/08/17 01:42 Dose: 0.63 mg Morphine Sulfate (Morphine) 2 mg IVP Q6H PRN PRN Reason: Pain, severe (8-10) Last Admin: 08/08/17 02:58 Dose: 2 mg Ondansetron HCl (Zofran Inj) 4 mg IVP Q4H PRN PRN Reason: Nausea/Vomiting Pantoprazole Sodium (Protonix Susp) 40 mg PO ACB [facility] Last Admin: 08/07/17 09:09 Dose: 40 mg Saliva Substitute (Saliva Substitute) 10 ml PO Q4H PRN PRN Reason: Xerostomia Stop: 08/13/17 23:59 - Labs Labs: 08/08/17 05:30 08/08/17 05:30 PT 12.9 SECONDS (9.4-12.5) H 08/08/17 05:30 INR 1.12 (0.93-1.08) H 08/08/17 05:30 APTT 32.2 Seconds (25.1-36.5) 08/04/17 20:57 - Constitutional Appears: Chronically Ill - Head Exam Head Exam: NORMAL INSPECTION - ENT Exam ENT Exam: Mucous Membranes Moist - Neck Exam Neck Exam: absent: Meningismus - Respiratory Exam Respiratory Exam: Decreased Breath Sounds - Cardiovascular Exam Cardiovascular Exam: +S1, +S2 - GI/Abdominal Exam GI & Abdominal Exam: Soft, Tenderness (on right lower quadrant area). absent: Distended, Guarding, Rigid, Rebound Assessment and Plan - Assessment and Plan (Free Text) Plan: Assessment consider severe sepsis S/P acute renal failure due to intra-abdominal infection with typhlitis /cecitis in this patient who developed right sided pneumohydrothorax S/P right sided chest tube placement history of severe sepsis with acute renal failure due to HCAP TIA COPD dementia HTN osteoarthritis chronic CHF cataracts Plan continue Vancomycin and Merrem day 4; blood cx are negative; urine cx showing Klebsiella reviewed CT scan of the abdomen and pelvis which shows typhlitis - WBC still elevated, although trending downwards - abdominal exam still showing tenderness - will repeat CT A/P with PO and IV contrast to rule out developing abscess will continue to monitor clinically
[2017-08-08] MEDS ORDERED: Morphine 2 mg/ml ISec IVP PRN (10:37)
[2017-08-08] MEDS ORDERED: Barium Sulfate Susp 2.1% w/v, 2.0% w/w 450 mL Bottle PO ONE (10:42)
--- NOTE | 2017-08-08 11:09 | PN ---
DATE: 08/07/2017 SUBJECTIVE: The patient is still in the ICU, seems more comfortable today - responding to calling his name. He seems a little bit sleepy, but he responded very well when I called his name and had appropriate response. He does not seem to be in any respiratory distress. He is otherwise stable. Please be advised this is a note for 08/07/2017. PHYSICAL EXAMINATION GENERAL: No respiratory distress. HEAD AND NECK: No JVD. No thyromegaly. CHEST: Clear. Right-sided chest tube connected to the chest suction device, almost 2 liters out. There is no further drainage for the last 24-48 hours and seems stable. ABDOMEN: Soft, nontender. EXTREMITIES: No edema. NEUROLOGICAL: He does open his eyes, responds and moves extremities. LABORATORY DATA: White count came down to 23.6, hemoglobin 10.3, hematocrit 31.3, and platelets 196. Chemistry: Sodium 142, potassium 3.8, chloride 109, bicarbonate 25, BUN 28, creatinine 0.9, blood sugar 111, and liver function test is normal, except an ALT slightly elevated at 60. Total protein low at 5.5, albumin 2.7, and globulin 2.7. IMPRESSION AND PLAN: 1. Acute hydropneumothorax, probably iatrogenic from subclavian line. Continue chest tube drainage. We will follow up on that and we will discuss further with the hospital Intensive Care Unit team. 2. Chronic obstructive pulmonary disease. Continue nebulizer treatments. 3. Urinary tract infection, urosepsis. Continue vancomycin. Continue Merrem for now, 1 g 12 and vancomycin 1 g q.12 hours. 4. Chest pain on and off. Continue morphine on and off. Continue Tylenol. 5. Continue gastrointestinal and deep venous thrombosis prophylaxis. 6. For underlying dementia, continue Aricept. We will follow up clinically. Please be advised this note is for 08/07/2017. Cody Aguilar MD
[2017-08-08] MEDS ORDERED: Iohexol 350 MG/100 ML VIAL ONE (12:53)
--- NOTE | 2017-08-08 15:07 | CT ---
PROCEDURE: CT Abdomen and Pelvis with contrast HISTORY: r/o abscess COMPARISON: 08/05/2017 CT TECHNIQUE: Contrast dose: 100 cc of Omni 350 Radiation dose: Total exam DLP = 379 mGy-cm. This CT exam was performed using one or more of the following dose reduction techniques: Automated exposure control, adjustment of the mA and/or kV according to patient size, and/or use of iterative reconstruction technique. FINDINGS: LOWER THORAX: There is a significant decrease in the size of the right-sided pleural effusion and right basilar pneumothorax. A small residual pneumothorax is still seen. A chest tube remains in place. LIVER: Simple cysts are seen in the liver. GALLBLADDER AND BILE DUCTS: There is a lucent stone in the gallbladder. PANCREAS: Unremarkable. No gross lesion or ductal dilatation. SPLEEN: Unremarkable. ADRENALS: Unremarkable. No mass. KIDNEYS AND URETERS: Unremarkable. No hydronephrosis. No solid mass. VASCULATURE: Unremarkable. No aortic aneurysm. BOWEL: There is severe mural thickening in the ascending colon. This is unchanged. No evidence of abscess APPENDIX: Normal appendix. PERITONEUM: Unremarkable. No free fluid. No free air. LYMPH NODES: Unremarkable. No enlarged lymph nodes. BLADDER: A Light catheter decompresses the bladder REPRODUCTIVE: The prostate is enlarged and has a nodular appearance which invaginate the floor of the bladder. BONES: No acute fracture. OTHER FINDINGS: None. IMPRESSION: Severe colitis involving the ascending colon. No evidence of abscess.
--- NOTE | 2017-08-08 17:10 | CP.PCM.CON ---
<AlvinMargot - Last Filed: 08/08/17 16:58> History of Present Illness - History of Present Illness History of Present Illness: GI Consult - Dr Valerio HPI: 87 M with PMHx of CVA, CHF, COPD, Advanced dementia, HTN, OA, PNA admitted to [facility] for AMS secondary to sepsis. Pt was recently admitted to [facility] 2 weeks ago for CVA and possible HCAP and was treated with Cefepime and Doxycycline. In the ED, the patient was noted to be febrile with a WBC count of 26.2 and code sepsis was called. Pt responded to fluid resuscitation. Patient was found to have an evidence of a UTI and placed on antibiotics. Patient was found to be febrile and hypotensive overnight, responded to fluid bolus. CT Abd/Pelvis performed demonstrated large right sided hydropneumothorax and chest tube was placed. Patient currently denies any fevers, chills, shortness of breath, chest pain or urinary symptoms. Pt reports mild RLQ tenderness. Pt denied any active diarrhea. Pt reports to having soft stools. PMHx: CVA, CHF, COPD, Advanced dementia, HTN, OA, PNA PSHx: Denies Social Hx: Denied etoh, tobacco, illicit drugs. Lives with family Allergies: NKDA Meds: MAR reviewed Review of Systems - Review of Systems Review of Systems: as per HPI otherwise negative Past Patient History - Infectious Disease Hx of Infectious Diseases: None - Tetanus Immunizations Tetanus Immunization: Unknown - Past Social History Smoking Status: Unknown If Ever Smoked - CARDIAC Hx Hypertension: Yes - PULMONARY Hx Chronic Obstructive Pulmonary Disease (COPD): Yes - NEUROLOGICAL HX Cerebrovascular Accident: Yes (TIA) - HEENT Hx HEENT Problems: Yes (WEARS RX GLASSES) Hx Cataracts: Yes - RENAL Hx Chronic Kidney Disease: Yes - ENDOCRINE/METABOLIC Hx Endocrine Disorders: No - HEMATOLOGICAL/ONCOLOGICAL Hx Blood Disorders: No - INTEGUMENTARY Hx Dermatological Problems: Yes (MULTIPLE ROUND OLD AGE SPOTS TO FACE,ARMS) - MUSCULOSKELETAL/RHEUMATOLOGICAL Hx Arthritis: Yes - GASTROINTESTINAL Hx Gastrointestinal Disorders: No - GENITOURINARY/GYNECOLOGICAL Hx Genitourinary Disorders: Yes - PSYCHIATRIC Hx Psychophysiologic Disorder: No - SURGICAL HISTORY Hx Surgeries: No Other/Comment: peg tube - ANESTHESIA Hx Anesthesia: No Meds Allergies/Adverse Reactions: Allergies Allergy/AdvReac Type Severity Reaction Status Date / Time No Known Allergies Allergy Verified 06/08/17 07:28 - Medications Medications: Current Medications Acetaminophen (Tylenol 650 Mg Supp) 650 mg RC Q6H PRN PRN Reason: Fever >100.4 F Acetylcysteine (Acetylcysteine 20%) 4 ml IH [id number] PRN PRN Reason: Cough and congestion Last Admin: 08/08/17 01:42 Dose: 4 ml Atorvastatin Calcium (Lipitor) 40 mg PO DIN [facility] Last Admin: 08/07/17 17:49 Dose: 40 mg Donepezil HCl (Aricept) 5 mg PO HS [facility] Last Admin: 08/07/17 21:49 Dose: 5 mg Enoxaparin Sodium (Lovenox) 40 mg SC DAILY [facility] PRN Reason: Protocol Last Admin: 08/08/17 09:20 Dose: 40 mg Meropenem/Sodium Chloride (Meropenem 1g/Ns 100ml Ivpb) 1 gm in 100 mls @ 100 mls/hr IVPB Q12 [facility] PRN Reason: Protocol Last Admin: 08/08/17 09:21 Dose: 100 mls/hr Acetaminophen (Ofirmev) 1,000 mg in 100 mls @ 400 mls/hr IVPB Q6H PRN PRN Reason: Pain, moderate (4-7) Stop: 08/09/17 07:49 Last Admin: 08/07/17 18:59 Dose: 400 mls/hr Vancomycin HCl (Vancomycin 1gm) 1 gm in 250 mls @ 167 mls/hr IVPB Q12 [facility] PRN Reason: Protocol Last Admin: 08/08/17 09:21 Dose: 167 mls/hr Sodium Chloride (Sodium Chloride 0.9%) 1,000 mls @ 60 mls/hr IV .[id number] [facility] Last Admin: 08/08/17 09:25 Dose: 60 mls/hr Levalbuterol HCl (Xopenex) 0.63 mg IH [id number] PRN PRN Reason: Shortness of Breath Last Admin: 08/08/17 01:42 Dose: 0.63 mg Morphine Sulfate (Morphine) 1 mg IVP Q6H PRN PRN Reason: Pain, severe (8-10) Ondansetron HCl (Zofran Inj) 4 mg IVP Q4H PRN PRN Reason: Nausea/Vomiting Pantoprazole Sodium (Protonix Susp) 40 mg PO ACB [facility] Last Admin: 08/08/17 09:24 Dose: 40 mg Saliva Substitute (Saliva Substitute) 10 ml PO Q4H PRN PRN Reason: Xerostomia Stop: 08/13/17 23:59 Physical Exam - Constitutional Appears: No Acute Distress - Head Exam Head Exam: ATRAUMATIC, NORMAL INSPECTION, NORMOCEPHALIC - Eye Exam Eye Exam: EOMI, Normal appearance, PERRL Pupil Exam: NORMAL ACCOMODATION, PERRL Additional comments: B/l cataracts - ENT Exam ENT Exam: Mucous Membranes Dry - Respiratory Exam Respiratory Exam: Clear to Auscultation Bilateral, NORMAL BREATHING PATTERN - Cardiovascular Exam Cardiovascular Exam: Tachycardia, +S1, +S2 - GI/Abdominal Exam GI & Abdominal Exam: Normal Bowel Sounds (PEG in place), Soft, Tenderness (RLQ tenderness,) - Neurological Exam Neurological exam: Alert, CN II-XII Intact, Normal Gait, Oriented x3, Reflexes Normal - Psychiatric Exam Psychiatric exam: Normal Affect, Normal Mood - Skin Skin Exam: Dry, Intact, Normal Color, Warm Results - Vital Signs Recent Vital Signs: Last Vital Signs Temp 98.1 F 08/08/17 13:17 Pulse 61 08/08/17 14:00 Resp 14 08/08/17 14:00 BP 133/54 L 08/08/17 14:00 Pulse Ox 97 08/08/17 14:00 - Labs Result Diagrams: 08/08/17 05:30 08/08/17 05:30 Labs: Laboratory Results - last 24 hr 08/08/17 08/08/17 08/08/17 05:30 05:30 05:30 WBC 17.2 H D RBC 3.76 Hgb 10.6 L Hct 32.4 L MCV 86.2 MCH 28.2 MCHC 32.7 RDW 15.7 H Plt Count 194 MPV 10.6 PT 12.9 H INR 1.12 H pCO2 pO2 HCO3 ABG pH ABG Total CO2 ABG O2 Saturation ABG O2 Content ABG Base Excess ABG Hemoglobin ABG Carboxyhemoglobin POC ABG HHb (Measured) ABG Methemoglobin ABG O2 Capacity Hgb O2 Saturation FiO2 Sodium 143 Potassium 4.0 Chloride 109 H Carbon Dioxide 28 Anion Gap 11 BUN 16 Creatinine 0.8 Est GFR ( Amer) > 60 Est GFR (Non-Af Amer) > 60 Random Glucose 92 Calcium 8.5 Total Bilirubin 0.8 AST 36 ALT 51 Alkaline Phosphatase 83 Total Protein 5.6 L Albumin 2.8 L Globulin 2.8 Albumin/Globulin Ratio 1.0 L 08/08/17 05:30 WBC RBC Hgb Hct MCV MCH MCHC RDW Plt Count MPV PT INR pCO2 39 pO2 87.0 HCO3 27.7 ABG pH 7.46 H ABG Total CO2 28.9 H ABG O2 Saturation 99.6 H ABG O2 Content 13.8 L ABG Base Excess 3.6 H ABG Hemoglobin 10.1 L ABG Carboxyhemoglobin 2.2 H POC ABG HHb (Measured) 0.4 ABG Methemoglobin 1.2 ABG O2 Capacity 13.9 L Hgb O2 Saturation 96.1 FiO2 32.0 Sodium Potassium Chloride Carbon Dioxide Anion Gap BUN Creatinine Est GFR ( Amer) Est GFR (Non-Af Amer) Random Glucose Calcium Total Bilirubin AST ALT Alkaline Phosphatase Total Protein Albumin Globulin Albumin/Globulin Ratio Assessment & Plan - Assessment and Plan (Free Text) Assessment: 87 Male with a PMHx of prior CVA, progressive dementia, dysphagia s/p PEG tube placement, COPD and recent admission for pneumonia who presented to [facility] with altered mental status and found to be in severe sepsis 2/2 UTI w/ ESBL. CXR showed moderate right hydro-pneumothorax. R sided chest tube was placed with 2 L serosanguinous fluid drained. Post-procedure CXR showed interval improvement. WBC has been trending down and is responding appropriately to antibiotics covering ESBL. CT abdomen/pelvis showed tephlitis , will hold tube feeds for now. Repeat Abdomen CT demonstrated active severe colitis in ascending colitis. Cdiff and ova/parasite negative. Continue abx, ppi. Pt for LTAC transfer. <Teodoro,Kovil V - Last Filed: 08/09/17 00:41> Meds - Medications Medications: Current Medications Acetaminophen (Tylenol 650 Mg Supp) 650 mg RC Q6H PRN PRN Reason: Fever >100.4 F Acetylcysteine (Acetylcysteine 20%) 4 ml IH [id number] PRN PRN Reason: Cough and congestion Last Admin: 08/08/17 01:42 Dose: 4 ml Atorvastatin Calcium (Lipitor) 40 mg PO DIN [facility] Last Admin: 08/08/17 18:24 Dose: 40 mg Donepezil HCl (Aricept) 5 mg PO HS [facility] Last Admin: 08/08/17 21:11 Dose: 5 mg Enoxaparin Sodium (Lovenox) 40 mg SC DAILY [facility] PRN Reason: Protocol Last Admin: 08/08/17 09:20 Dose: 40 mg Meropenem/Sodium Chloride (Meropenem 1g/Ns 100ml Ivpb) 1 gm in 100 mls @ 100 mls/hr IVPB Q12 [facility] PRN Reason: Protocol Last Admin: 08/08/17 21:10 Dose: 100 mls/hr Acetaminophen (Ofirmev) 1,000 mg in 100 mls @ 400 mls/hr IVPB Q6H PRN PRN Reason: Pain, moderate (4-7) Stop: 08/09/17 07:49 Last Admin: 08/07/17 18:59 Dose: 400 mls/hr Vancomycin HCl (Vancomycin 1gm) 1 gm in 250 mls @ 167 mls/hr IVPB Q12 [facility] PRN Reason: Protocol Last Admin: 08/08/17 21:10 Dose: 167 mls/hr Sodium Chloride (Sodium Chloride 0.9%) 1,000 mls @ 60 mls/hr IV .[id number] [facility] Last Admin: 08/08/17 09:25 Dose: 60 mls/hr Levalbuterol HCl (Xopenex) 0.63 mg IH [id number] PRN PRN Reason: Shortness of Breath Last Admin: 08/08/17 01:42 Dose: 0.63 mg Morphine Sulfate (Morphine) 1 mg IVP Q6H PRN PRN Reason: Pain, severe (8-10) Last Admin: 08/08/17 21:09 Dose: 1 mg Ondansetron HCl (Zofran Inj) 4 mg IVP Q4H PRN PRN Reason: Nausea/Vomiting Pantoprazole Sodium (Protonix Susp) 40 mg PO ACB [facility] Last Admin: 08/08/17 09:24 Dose: 40 mg Saliva Substitute (Saliva Substitute) 10 ml PO Q4H PRN PRN Reason: Xerostomia Stop: 08/13/17 23:59 Results - Vital Signs Recent Vital Signs: Last Vital Signs Temp 98.4 F 08/08/17 22:10 Pulse 63 08/08/17 22:10 Resp 19 08/08/17 22:10 BP 170/60 H 08/08/17 22:00 Pulse Ox 93 L 08/08/17 22:10 - Labs Result Diagrams: 08/08/17 05:30 08/08/17 05:30 Labs: Laboratory Results - last 24 hr 08/06/17 08/06/17 08/08/17 09:00 09:00 05:30 WBC 17.2 H D RBC 3.76 Hgb 10.6 L Hct 32.4 L MCV 86.2 MCH 28.2 MCHC 32.7 RDW 15.7 H Plt Count 194 MPV 10.6 PT INR pCO2 pO2 HCO3 ABG pH ABG Total CO2 ABG O2 Saturation ABG O2 Content ABG Base Excess ABG Hemoglobin ABG Carboxyhemoglobin POC ABG HHb (Measured) ABG Methemoglobin ABG O2 Capacity Hgb O2 Saturation FiO2 Sodium Potassium Chloride Carbon Dioxide Anion Gap BUN Creatinine Est GFR ( Amer) Est GFR (Non-Af Amer) Random Glucose Calcium Total Bilirubin AST ALT Alkaline Phosphatase Total Protein Albumin Globulin Albumin/Globulin Ratio Pleural Total Protein <3.0 Pleural LDH 25 Pleural Glucose 125 Pleural Triglycerides see note 08/08/17 08/08/17 08/08/17 05:30 05:30 05:30 WBC RBC Hgb Hct MCV MCH MCHC RDW Plt Count MPV PT 12.9 H INR 1.12 H pCO2 39 pO2 87.0 HCO3 27.7 ABG pH 7.46 H ABG Total CO2 28.9 H ABG O2 Saturation 99.6 H ABG O2 Content 13.8 L ABG Base Excess 3.6 H ABG Hemoglobin 10.1 L ABG Carboxyhemoglobin 2.2 H POC ABG HHb (Measured) 0.4 ABG Methemoglobin 1.2 ABG O2 Capacity 13.9 L Hgb O2 Saturation 96.1 FiO2 32.0 Sodium 143 Potassium 4.0 Chloride 109 H Carbon Dioxide 28 Anion Gap 11 BUN 16 Creatinine 0.8 Est GFR ( Amer) > 60 Est GFR (Non-Af Amer) > 60 Random Glucose 92 Calcium 8.5 Total Bilirubin 0.8 AST 36 ALT 51 Alkaline Phosphatase 83 Total Protein 5.6 L Albumin 2.8 L Globulin 2.8 Albumin/Globulin Ratio 1.0 L Pleural Total Protein Pleural LDH Pleural Glucose Pleural Triglycerides Attending/Attestation - Attestation I have personally seen and examined this patient.: Yes I have fully participated in the care of the patient.: Yes I have reviewed all pertinent clinical information: Yes Notes (Text): This is an addendum to GI consult report dictated by the Resource Specialist.The patient was seen and examined earlier.Medical records ,lab studies,imaging were reviewed . Last 24hrs events reviewed. Agreed with the above treatment plan as outlined in Resource Specialist 's notes the with the addition of the following patient on examination has significant tenderness in the right side of the abdomen the CT scan showed worsening of the colitis mainly ascending colon. The likely cause of predominantly right colon colitis should include ischemic colitis. In this scenario other differential diagnoses IBD, infectious etiology less likely In view of the worsening of the colitis we would not contemplate advancing diet Would recommend abdominal Doppler to evaluate superior mesenteric artery and celiac artery Will discuss with ID regarding adding Flagyl for increased anaerobic overage 08/09/17 00:31
[2017-08-08 22:46] LABS: LDH PLEURAL FLUID 25 U/L; TOTAL PROTEIN PLEURAL FLUID <3.0 g/dL
--- NOTE | 2017-08-09 02:20 | PN ---
DATE: PULMONARY CRITICAL CARE PROGRESS NOTE REFERRING PHYSICIAN: Cody Aguilar MD SUBJECTIVE: He is lying in the bed, head at 45 degrees. Much more awake and alert, breathing is better. No pain. Still has a chest tube, which is off suction on water seal. No air leak noted. No vomiting. No hematuria, no diarrhea reported. OBJECTIVE: GENERAL: In no acute distress. VITAL SIGNS: Temperature is 98, heart rate 62, respiratory rate is 20, blood pressure 153/58, pulse ox 96% on nasal cannula. HEENT: Moist mucous membrane. No ulcer or thrush noted. NECK: Supple. No JVD. LUNGS: Have a few scattered rhonchi. HEART: S1 and S2. ABDOMEN: Soft, nontender. No organomegaly. EXTREMITIES: No edema. NEUROLOGIC: Awake, alert and follow simple commands. MEDICATIONS: He is on Mucomyst 20% inhaled q.6 hours p.r.n., Aricept 5 mg at bedtime, Lipitor 40 mg daily, Lovenox 40 mg daily, meropenem 1 g IV q.12 hours, morphine 1 mg q.6 hours p.r.n., Tylenol p.r.n., Protonix 40 mg daily, and saliva substitute q.4 hours p.r.n., IV fluid normal saline 60 mL/hour, Tylenol p.r.n. basis, vancomycin 1 g IV q.12 hours, Xopenex inhaled q.6 hours, Zofran p.r.n. basis. LABORATORY DATA: Shows hemoglobin 10.6, hematocrit 32.4, WBC 17.2, platelet is 194. INR 1.2. Blood gases show pH 7.46, pCO2 of 39, O2 of 87, this is on nasal cannula. Sodium 143, potassium 4.0, chloride 109, bicarbonate 28, BUN is 16, creatinine 0.8, calcium is 8.5. AST is 36, ALT 51, alk phos is 83. Albumin 2.8. Urine culture has E. coli. CAT scan of the abdomen and pelvis shows severe colitis involving the ascending colon. No evidence of abscess. Chest x-ray done this morning shows right pneumothorax, resolved; chest tube is okay; patchy atelectasis and infiltrate seen at the right inferior left lung zone. IMPRESSION AND PLAN: Chronic obstructive lung disease, healthcare-associated pneumonia, status post hydropneumothorax requiring chest tube; history of cerebrovascular accident; dementia; oropharyngeal dysphagia; has a G-tube; resolve septic shock; colitis. We will send stool for Clostridium difficile. May need to add Flagyl. Continue bronchodilators. Follow up chest x-ray if no air leak by tomorrow. May discontinue chest tube. Aspiration precaution. Gastric prophylaxis. Sequential compression device to lower extremity. Follow up labs the morning. Spoke to nursing staff. Critical care time is more than 35 minutes. Thank you and we will follow with you. Dl Lynch MD
[2017-08-09] MEDS: Sodium Chloride 0.9% 1,000 ML IV SCH (06:40)
[2017-08-09 07:08] LABS: HEMOGLOBIN 12.5 g/dL (14.0-18.0); MEAN CELL VOLUME 85.2 fl (80.0-105.0); MEAN CORPUSCULAR HEMOGLOBIN 28.5 pg (25.0-35.0); MEAN CORPUSCULAR HGB CONC 33.4 g/dl (31.0-37.0); MEAN PLATELET VOLUME 11.2 fl (7.0-11.0); RBC 4.39 10^6/uL (3.5-6.1); RED CELL DISTRIBUTION WIDTH 15.1 % (11.5-14.5); WHITE BLOOD COUNT 15.3 10^3/ul (4.5-11.0)
[2017-08-09 07:14] LABS: INR 1.07 (0.93-1.08); PROTHROMBIN TIME 12.3 SECONDS (9.4-12.5)
[2017-08-09 07:17] LABS: ALBUMIN 3.3 g/dL (3.0-4.8); ALT/SGPT 56 U/L (7-56); AST/SGOT 47 U/L (17-59); BLOOD UREA NITROGEN 14 mg/dL (7-21); CALCIUM 9.1 mg/dL (8.4-10.5); GFR AFRICAN-AMERICAN > 60; GFR NON-AFRICAN AMERICAN > 60
[2017-08-09] MEDS: Enoxaparin 40 mg Syringe SC SCH (08:59)
[2017-08-09] MEDS: Pantoprazole 40 mg Susp UD PO SCH (09:01)
[2017-08-09] MEDS: Vancomycin 1gm in NS 250ml 1 GM/250 ML BAG IVPB SCH ×2 (09:01→21:29)
[2017-08-09] MEDS: Meropenem 1g/NS 100mL IVPB 1 GM/100 ML PIGGYBACK IVPB SCH ×2 (09:01→21:25)
--- NOTE | 2017-08-09 09:43 | RAD ---
HISTORY: chest tube on water seal COMPARISON: 08/08/2017 FINDINGS: LUNGS: There is a very small right apical pneumothorax. The chest tube remains in place PLEURA: No significant pleural effusion identified, no pneumothorax apparent. CARDIOVASCULAR: Normal. OSSEOUS STRUCTURES: No significant abnormalities. VISUALIZED UPPER ABDOMEN: Normal. OTHER FINDINGS: None. IMPRESSION: Very small right apical pneumothorax
--- NOTE | 2017-08-09 11:35 | CP.PCM.PN ---
Subjective - Date & Time of Evaluation Date of Evaluation: 08/09/17 Time of Evaluation: 09:00 - Subjective Subjective: Patient seen and examined at bedside. Patient denied any dyspnea or chest pain. Chest tube is in place and on water seal without leak Objective - Vital Signs/Intake and Output Vital Signs (last 24 hours): Temp Pulse Resp BP Pulse Ox 98.9 F 81 18 158/85 H 98 08/09/17 00:00 08/09/17 10:00 08/09/17 00:00 08/09/17 10:00 08/09/17 00:00 Intake and Output: 08/09/17 08/09/17 06:59 18:59 Intake Total 550 Output Total 20 1200 Balance 530 -1200 - Medications Medications: Current Medications Acetaminophen (Tylenol 650 Mg Supp) 650 mg RC Q6H PRN PRN Reason: Fever >100.4 F Acetylcysteine (Acetylcysteine 20%) 4 ml IH [id number] PRN PRN Reason: Cough and congestion Last Admin: 08/08/17 01:42 Dose: 4 ml Atorvastatin Calcium (Lipitor) 40 mg PO DIN [facility] Last Admin: 08/08/17 18:24 Dose: 40 mg Donepezil HCl (Aricept) 5 mg PO HS [facility] Last Admin: 08/08/17 21:11 Dose: 5 mg Enoxaparin Sodium (Lovenox) 40 mg SC DAILY [facility] PRN Reason: Protocol Last Admin: 08/09/17 08:59 Dose: 40 mg Meropenem/Sodium Chloride (Meropenem 1g/Ns 100ml Ivpb) 1 gm in 100 mls @ 100 mls/hr IVPB Q12 [facility] PRN Reason: Protocol Last Admin: 08/09/17 09:01 Dose: 100 mls/hr Vancomycin HCl (Vancomycin 1gm) 1 gm in 250 mls @ 167 mls/hr IVPB Q12 [facility] PRN Reason: Protocol Last Admin: 08/09/17 09:01 Dose: 167 mls/hr Sodium Chloride (Sodium Chloride 0.9%) 1,000 mls @ 60 mls/hr IV .[id number] [facility] Last Admin: 08/09/17 06:40 Dose: 60 mls/hr Levalbuterol HCl (Xopenex) 0.63 mg IH [id number] PRN PRN Reason: Shortness of Breath Last Admin: 08/08/17 01:42 Dose: 0.63 mg Morphine Sulfate (Morphine) 1 mg IVP Q6H PRN PRN Reason: Pain, severe (8-10) Last Admin: 08/08/17 21:09 Dose: 1 mg Ondansetron HCl (Zofran Inj) 4 mg IVP Q4H PRN PRN Reason: Nausea/Vomiting Pantoprazole Sodium (Protonix Susp) 40 mg PO ACB [facility] Last Admin: 08/09/17 09:01 Dose: 40 mg Saliva Substitute (Saliva Substitute) 10 ml PO Q4H PRN PRN Reason: Xerostomia Stop: 08/13/17 23:59 - Labs Labs: 08/09/17 06:20 08/09/17 06:20 PT 12.3 SECONDS (9.4-12.5) 08/09/17 06:20 INR 1.07 (0.93-1.08) 08/09/17 06:20 APTT 32.2 Seconds (25.1-36.5) 08/04/17 20:57 - Constitutional Appears: Well, Non-toxic, No Acute Distress - Head Exam Head Exam: ATRAUMATIC, NORMOCEPHALIC - Eye Exam Eye Exam: Normal appearance. absent: Conjunctival injection, Scleral icterus - ENT Exam ENT Exam: Mucous Membranes Moist, Normal Oropharynx - Respiratory Exam Respiratory Exam: NORMAL BREATHING PATTERN. absent: Accessory Muscle Use, Respiratory Distress Additional comments: Chest tube in place with dressing's C/D/I, no leak, approximatly 20cc's output serosanguinous fluid/24hours - Cardiovascular Exam Cardiovascular Exam: RRR - GI/Abdominal Exam GI & Abdominal Exam: Soft, Tenderness (RLQ). absent: Distended, Rebound - Neurological Exam Neurological Exam: Alert, Awake, Oriented x3 - Psychiatric Exam Psychiatric exam: Normal Affect, Normal Mood - Skin Skin Exam: Dry, Intact, Normal Color, Warm Assessment and Plan - Assessment and Plan (Free Text) Assessment: 87M with hydropneumothorax s/p tube thoracostomy with persistent small apical pneumothorax on water seal Plan: Continue chest tube to water seal Repeat CXR in the AM Monitor for signs of respiratory distress If pneumothorax has resolved tomorrow, may consider pulling the chest tube Discussed with Dr. Carrillo Alejandre, PGY2
--- NOTE | 2017-08-09 14:01 | CON ---
DATE: HISTORY OF PRESENT ILLNESS: He was seen on Monday night because of shortness of breath and hydropneumothorax. The patient is seen with DrKita . The patient had a central line placed in the Emergency Room which does not aspirate at all. It does flush nicely. X-ray is read is normal position; is removed because of poor function. The peripheral IV is in place, so the central line is removed. Subsequent to that, there was I guess 40% pneumothorax. There was a hydropneumothorax that was noted on CAT scan prior to this intervention. Chest tube is placed by the following morning. This is good position with his right pneumothorax. It drained about 1200 mL. Today, the I was asked by Dr. Aguilar to see the patient. The patient is still in the ICU, the chest tube is extubated. He is afebrile with a pulse about 50, blood pressure of . White count was 26, it is down to 23 and hemoglobin 10.3. PT is normal. PTT is 32. BUN is 28, glucose 110, and ALT is 60. There is a CAT scan done on the 08/05/2017 that showed hydropneumothorax which was done prior to the chest tube, but also there was thickening of the cecum. The patient is known to have ESBL in the urine. At the moment, the C. diff is normal. PHYSICAL EXAMINATION GENERAL: He is a speaking, speaks very, very soft tone. HEENT: Negative. Pupils equal, round and reactive. EOMs intact. negative. No icterus. CHEST: Clear. The chest tube is in the right side. No air leak. Serosanguineous drainage. ABDOMEN: Flat, tender in the right lower quadrant. Possible mild peritoneal signs. He is cachectic. IMPRESSION AND PLAN: Multiple medical problems with chest issue that seems to have resolved with chest tube. CAT scan showing swelling in the cecum with thick wall consistent with ischemic and/or Clostridium difficile colitis. The patient is being treated appropriately with antibiotics and fluids. In light of the negative Clostridium difficile, I would say this is probably ischemic colitis possibly related to the urinary sepsis. Physical exam is concerning for the need for surgical intervention, however, he is extremely poor person for surgery. On Monday, discussed the need for surgical intervention and I am not sure the family would ; although, I do know the patient is no longer do not intubate. I do not think the patient's family would tolerate an ileostomy which is probably what he would need. We will treat conservatively for now in the phase if there is clear surgical signs, we will discuss with the family, but I am very reluctant to go forward. Morgan Vizcaino MD
--- NOTE | 2017-08-09 14:41 | PN ---
DATE: 08/09/2017 PULMONARY PROGRESS NOTE REFERRING PHYSICIAN: Cody Aguilar MD. SUBJECTIVE: He is lying in the bed at 45 degrees, just come back from ultrasound. Family is at bedside. The patient is hungry, wants to eat. No chest pain. No nausea. No vomiting. No dysuria, leg pain or leg swelling. OBJECTIVE: GENERAL: In no acute distress. VITAL SIGNS: Temp is 98, heart rate is 73, respiratory rate is 18, blood pressure 158/85, pulse ox 98% on nasal cannula. HEENT: Moist mucous membrane. Crowded airway. NECK: Supple. No JVD. LUNGS: Have a fair airflow with rhonchi. HEART: S1 and S2. ABDOMEN: Soft, nontender, not distended. G-tube area looks okay. EXTREMITIES: There is no edema. NEUROLOGICAL: Awake and alert. Follows simple command. LABORATORY DATA: Shows hemoglobin 12.5, hematocrit 37.4, WBC 15.3, platelet is 237. INR 1.07. Sodium 140, potassium 4.1, chloride 103, bicarbonate 26, BUN 14, creatinine 0.7, glucose is 87, calcium 9.1, AST 47, ALT 56, alk phos is 99, albumin is 3.3. Influenza had been negative. Urine culture has E. coli. Pleural fluid, there is no growth. Chest x-ray done this morning shows very small right apical pneumothorax is still there. Abdominal ultrasound report is pending. MEDICATIONS: He is on Mucomyst 20% inhaled q. 6 hours p.r.n., Aricept 5 mg at bedtime, Lipitor 40 mg daily, Lovenox 40 mg daily, meropenem 1 g IV q. 12 hours, morphine 1 mg q. 6 hours p.r.n, Protonix 40 mg daily, saliva substitute q. 4 hours, IV fluid normal saline 60 mL per hour, Tylenol p.r.n., vancomycin 1 g IV q. 12 hours, Xopenex inhaled q. 6 hours, Zofran p.r.n. basis. IMPRESSION AND PLAN: Chronic obstructive lung disease, healthcare-associated pneumonia, status post hydropneumothorax requiring chest tube, has been removed. Still has a small pneumothorax, though. History of cerebrovascular accident, dementia, oropharyngeal dysphagia, gastrostomy tube, resolved sepsis, has some colitis according to CT of the abdomen. Case discussed with the family, also spoke to nursing staff. Awaiting for clearance from Gastroenterology to restart feeding. Keep head elevated at 45 degrees, bronchodilator, gastric prophylaxis, antibiotics. Follow up chest x-ray in the morning. Thank you and we will follow with you. Dl Lynch MD
--- NOTE | 2017-08-09 16:26 | CP.PCM.PN ---
<Margot Esquivel - Last Filed: 08/09/17 16:20> Subjective - Date & Time of Evaluation Date of Evaluation: 08/09/17 Time of Evaluation: 09:45 - Subjective Subjective: GI Progress Note Dr Valerio Pt seen and examined at bedside. Chest tube in place on water seal. Pt found to be resting comfortably. Pt denied fever, chills sob, nausea, vomiting, constipation, diarrhea, or urinary symptoms. Objective - Vital Signs/Intake and Output Vital Signs (last 24 hours): Temp Pulse Resp BP Pulse Ox 98.1 F 81 19 158/85 H 96 08/09/17 07:30 08/09/17 10:00 08/09/17 07:30 08/09/17 10:00 08/09/17 07:30 Intake and Output: 08/09/17 08/09/17 06:59 18:59 Intake Total 550 0 Output Total 20 1550 Balance 530 -1550 - Medications Medications: Current Medications Acetaminophen (Tylenol 650 Mg Supp) 650 mg RC Q6H PRN PRN Reason: Fever >100.4 F Acetylcysteine (Acetylcysteine 20%) 4 ml IH [id number] PRN PRN Reason: Cough and congestion Last Admin: 08/08/17 01:42 Dose: 4 ml Atorvastatin Calcium (Lipitor) 40 mg PO DIN [facility] Last Admin: 08/08/17 18:24 Dose: 40 mg Donepezil HCl (Aricept) 5 mg PO HS [facility] Last Admin: 08/08/17 21:11 Dose: 5 mg Enoxaparin Sodium (Lovenox) 40 mg SC DAILY [facility] PRN Reason: Protocol Last Admin: 08/09/17 08:59 Dose: 40 mg Meropenem/Sodium Chloride (Meropenem 1g/Ns 100ml Ivpb) 1 gm in 100 mls @ 100 mls/hr IVPB Q12 [facility] PRN Reason: Protocol Last Admin: 08/09/17 09:01 Dose: 100 mls/hr Vancomycin HCl (Vancomycin 1gm) 1 gm in 250 mls @ 167 mls/hr IVPB Q12 [facility] PRN Reason: Protocol Last Admin: 08/09/17 09:01 Dose: 167 mls/hr Sodium Chloride (Sodium Chloride 0.9%) 1,000 mls @ 60 mls/hr IV .[id number] [facility] Last Admin: 08/09/17 06:40 Dose: 60 mls/hr Metronidazole (Flagyl) 500 mg in 100 mls @ 100 mls/hr IVPB Q8 [facility] PRN Reason: Protocol Levalbuterol HCl (Xopenex) 0.63 mg IH [id number] PRN PRN Reason: Shortness of Breath Last Admin: 08/08/17 01:42 Dose: 0.63 mg Morphine Sulfate (Morphine) 1 mg IVP Q6H PRN PRN Reason: Pain, severe (8-10) Last Admin: 08/08/17 21:09 Dose: 1 mg Ondansetron HCl (Zofran Inj) 4 mg IVP Q4H PRN PRN Reason: Nausea/Vomiting Pantoprazole Sodium (Protonix Susp) 40 mg PO ACB [facility] Last Admin: 08/09/17 09:01 Dose: 40 mg Saliva Substitute (Saliva Substitute) 10 ml PO Q4H PRN PRN Reason: Xerostomia Stop: 08/13/17 23:59 - Labs Labs: 08/09/17 06:20 08/09/17 06:20 PT 12.3 SECONDS (9.4-12.5) 08/09/17 06:20 INR 1.07 (0.93-1.08) 08/09/17 06:20 APTT 32.2 Seconds (25.1-36.5) 08/04/17 20:57 - Constitutional Appears: No Acute Distress - Head Exam Head Exam: ATRAUMATIC, NORMAL INSPECTION, NORMOCEPHALIC - Eye Exam Eye Exam: EOMI, Normal appearance, PERRL Pupil Exam: NORMAL ACCOMODATION, PERRL - ENT Exam ENT Exam: Mucous Membranes Moist, Normal Exam - Respiratory Exam Respiratory Exam: Clear to Ausculation Bilateral, NORMAL BREATHING PATTERN - Cardiovascular Exam Cardiovascular Exam: REGULAR RHYTHM, +S1, +S2. absent: Murmur - GI/Abdominal Exam GI & Abdominal Exam: Soft, Tenderness, Normal Bowel Sounds Additional comments: diffuse - Neurological Exam Neurological Exam: Alert, Awake, CN II-XII Intact, Oriented x3 - Psychiatric Exam Psychiatric exam: Normal Affect, Normal Mood - Skin Skin Exam: Dry, Intact, Normal Color, Warm Assessment and Plan - Assessment and Plan (Free Text) Assessment: 87 Male with a PMHx of prior CVA, progressive dementia, dysphagia s/p PEG tube placement, COPD and recent admission for pneumonia who [place] [facility] status and found to be in severe sepsis 2/2 UTI w/ ESBL. CXR showed moderate right hydro-pneumothorax. R sided chest tube was placed with 2 L serosanguinous fluid drained. Post-procedure CXR showed interval improvement. WBC has been trending down and is responding appropriately to antibiotics covering ESBL. CT abdomen/pelvis showed tephlitis , will hold tube feeds for now. Repeat Abdomen CT demonstrated active severe colitis in ascending colitis. Cdiff and ova/parasite negative. Continue abx, ppi. Will add flagyl for double anaerobic coverage. Worsening colitis 2/2 ischemia vs IBD vs infx. Abd US doppler for today to assess for ischemia discussed with Dr. Valerio <Seth Valerio V - Last Filed: 08/09/17 23:58> Objective - Vital Signs/Intake and Output Vital Signs (last 24 hours): Temp Pulse Resp BP Pulse Ox 97 F L 77 23 139/75 98 08/09/17 16:00 08/09/17 16:00 08/09/17 16:00 08/09/17 16:00 08/09/17 16:00 Intake and Output: 08/09/17 08/10/17 18:59 06:59 Intake Total 0 Output Total 1550 Balance -1550 - Medications Medications: Current Medications Acetaminophen (Tylenol 650 Mg Supp) 650 mg RC Q6H PRN PRN Reason: Fever >100.4 F Acetylcysteine (Acetylcysteine 20%) 4 ml IH [id number] PRN PRN Reason: Cough and congestion Last Admin: 08/08/17 01:42 Dose: 4 ml Atorvastatin Calcium (Lipitor) 40 mg PO DIN [facility] Last Admin: 08/08/17 18:24 Dose: 40 mg Donepezil HCl (Aricept) 5 mg PO HS [facility] Last Admin: 08/09/17 21:30 Dose: Not Given Enoxaparin Sodium (Lovenox) 40 mg SC DAILY [facility] PRN Reason: Protocol Last Admin: 08/09/17 08:59 Dose: 40 mg Meropenem/Sodium Chloride (Meropenem 1g/Ns 100ml Ivpb) 1 gm in 100 mls @ 100 mls/hr IVPB Q12 [facility]IE PRN Reason: Protocol Last Admin: 08/09/17 21:25 Dose: 100 mls/hr Vancomycin HCl (Vancomycin 1gm) 1 gm in 250 mls @ 167 mls/hr IVPB Q12 [facility]IE PRN Reason: Protocol Last Admin: 08/09/17 21:29 Dose: 167 mls/hr Sodium Chloride (Sodium Chloride 0.9%) 1,000 mls @ 60 mls/hr IV .[id number] [facility] Last Admin: 08/09/17 06:40 Dose: 60 mls/hr Metronidazole (Flagyl) 500 mg in 100 mls @ 100 mls/hr IVPB Q8 [facility]IE PRN Reason: Protocol Last Admin: 08/09/17 21:28 Dose: 100 mls/hr Levalbuterol HCl (Xopenex) 0.63 mg IH [id number] PRN PRN Reason: Shortness of Breath Last Admin: 08/08/17 01:42 Dose: 0.63 mg Morphine Sulfate (Morphine) 1 mg IVP Q6H PRN PRN Reason: Pain, severe (8-10) Last Admin: 08/08/17 21:09 Dose: 1 mg Ondansetron HCl (Zofran Inj) 4 mg IVP Q4H PRN PRN Reason: Nausea/Vomiting Pantoprazole Sodium (Protonix Susp) 40 mg PO ACB [facility] Last Admin: 08/09/17 09:01 Dose: 40 mg Saliva Substitute (Saliva Substitute) 10 ml PO Q4H PRN PRN Reason: Xerostomia Stop: 08/13/17 23:59 - Labs Labs: 08/09/17 06:20 08/09/17 06:20 PT 12.3 SECONDS (9.4-12.5) 08/09/17 06:20 INR 1.07 (0.93-1.08) 08/09/17 06:20 APTT 32.2 Seconds (25.1-36.5) 08/04/17 20:57 Attending/Attestation - Attestation I have personally seen and examined this patient.: Yes I have fully participated in the care of the patient.: Yes I have reviewed all pertinent clinical information, including history, physical exam and plan: Yes Notes (Text): This is an addendum to GI progress report dictated by the Rn Pediatric.The patient was seen and examined earlier. Medical records, lab studies, imagings were reviewed. Last hours events reviewed. Agreed with the above treatment plan as outlined in Rn Pediatric 's notes the with the addition of the following 08/09/17 23:56
--- NOTE | 2017-08-09 17:49 | CP.PCM.PN ---
Subjective - Date & Time of Evaluation Date of Evaluation: 08/08/17 Time of Evaluation: 11:45 - Subjective Subjective: Comfortable, no fevers, not in distress, still with abdominal pain. Objective - Vital Signs/Intake and Output Vital Signs (last 24 hours): Temp Pulse Resp BP Pulse Ox 97.7 F 54 L 22 134/61 100 08/08/17 06:02 08/08/17 06:02 08/08/17 06:02 08/08/17 06:00 08/07/17 19:20 - Medications Medications: Current Medications Acetaminophen (Tylenol 650 Mg Supp) 650 mg RC Q6H PRN PRN Reason: Fever >100.4 F Acetylcysteine (Acetylcysteine 20%) 4 ml IH [id number] PRN PRN Reason: Cough and congestion Last Admin: 08/08/17 01:42 Dose: 4 ml Atorvastatin Calcium (Lipitor) 40 mg PO DIN [facility] Last Admin: 08/07/17 17:49 Dose: 40 mg Donepezil HCl (Aricept) 5 mg PO HS [facility] Last Admin: 08/07/17 21:49 Dose: 5 mg Enoxaparin Sodium (Lovenox) 40 mg SC DAILY [facility] PRN Reason: Protocol Last Admin: 08/08/17 09:20 Dose: 40 mg Meropenem/Sodium Chloride (Meropenem 1g/Ns 100ml Ivpb) 1 gm in 100 mls @ 100 mls/hr IVPB Q12 [facility] PRN Reason: Protocol Last Admin: 08/08/17 09:21 Dose: 100 mls/hr Acetaminophen (Ofirmev) 1,000 mg in 100 mls @ 400 mls/hr IVPB Q6H PRN PRN Reason: Pain, moderate (4-7) Stop: 08/09/17 07:49 Last Admin: 08/07/17 18:59 Dose: 400 mls/hr Vancomycin HCl (Vancomycin 1gm) 1 gm in 250 mls @ 167 mls/hr IVPB Q12 [facility] PRN Reason: Protocol Last Admin: 08/08/17 09:21 Dose: 167 mls/hr Sodium Chloride (Sodium Chloride 0.9%) 1,000 mls @ 60 mls/hr IV .[id number] [facility] Last Admin: 08/08/17 09:25 Dose: 60 mls/hr Levalbuterol HCl (Xopenex) 0.63 mg IH [id number] PRN PRN Reason: Shortness of Breath Last Admin: 08/08/17 01:42 Dose: 0.63 mg Morphine Sulfate (Morphine) 2 mg IVP Q6H PRN PRN Reason: Pain, severe (8-10) Last Admin: 08/08/17 09:26 Dose: 2 mg Ondansetron HCl (Zofran Inj) 4 mg IVP Q4H PRN PRN Reason: Nausea/Vomiting Pantoprazole Sodium (Protonix Susp) 40 mg PO ACB [facility] Last Admin: 08/08/17 09:24 Dose: 40 mg Saliva Substitute (Saliva Substitute) 10 ml PO Q4H PRN PRN Reason: Xerostomia Stop: 08/13/17 23:59 - Labs Labs: 08/08/17 05:30 08/08/17 05:30 PT 12.9 SECONDS (9.4-12.5) H 08/08/17 05:30 INR 1.12 (0.93-1.08) H 08/08/17 05:30 APTT 32.2 Seconds (25.1-36.5) 08/04/17 20:57 - Constitutional Appears: Chronically Ill - Head Exam Head Exam: NORMAL INSPECTION - ENT Exam ENT Exam: Mucous Membranes Moist - Neck Exam Neck Exam: absent: Meningismus - Respiratory Exam Respiratory Exam: Decreased Breath Sounds - Cardiovascular Exam Cardiovascular Exam: +S1, +S2 - GI/Abdominal Exam GI & Abdominal Exam: Soft, Tenderness (right lower quadrant) Assessment and Plan - Assessment and Plan (Free Text) Plan: Assessment consider severe sepsis S/P acute renal failure due to intra-abdominal infection with ascending colitisin this patient who developed right sided pneumohydrothorax S/P right sided chest tube placement R/O ischemic colitis history of severe sepsis with acute renal failure due to HCAP TIA COPD dementia HTN osteoarthritis chronic CHF cataracts Plan continue Vancomycin and Merrem day 5; blood cx are negative; urine cx showing Klebsiella follow up ultrasound to rule out ischemic colitis will monitor clinically
--- NOTE | 2017-08-09 18:17 | US ---
PROCEDURE: Duplex ultrasound of the mesenteric arteries. HISTORY: Abdominal pain. Evaluate for mesenteric ischemia. PHYSICIAN(S): Antony Alex MD. TECHNIQUE: Duplex sonography with color-flow Doppler was used to evaluate limited segments of the abdominal aorta and proximal segments of the mesenteric arteries. FINDINGS: The exam is extremely limited by bowel gas. The proximal mesenteric arteries are not adequately visualized IMPRESSION: 1. Nondiagnostic study due to bowel gas. 2. If clinical suspicion for mesenteric ischemia is high, further evaluation with an MRA CTA, or conventional arteriogram can be considered
[2017-08-09] MEDS: metroNIDAZOLE IV 500 mg/100 ml 500 MG/100 ML BAG IVPB SCH (21:28)
[2017-08-10] MEDS: metroNIDAZOLE IV 500 mg/100 ml 500 MG/100 ML BAG IVPB SCH ×3 (06:47→21:47)
--- NOTE | 2017-08-10 07:02 | CP.PCM.PN ---
Subjective - Date & Time of Evaluation Date of Evaluation: 08/10/17 Time of Evaluation: 06:58 - Subjective Subjective: Surgery: Dr. Vizcaino Patient clinically same. No issues overnight. Chest tube remained on water seal. Abdominal pain improved. Objective - Vital Signs/Intake and Output Vital Signs (last 24 hours): Temp Pulse Resp BP Pulse Ox 97 F L 77 23 139/75 98 08/09/17 16:00 08/09/17 16:00 08/09/17 16:00 08/09/17 16:00 08/09/17 16:00 Intake and Output: 08/09/17 08/10/17 18:59 06:59 Intake Total 0 0 Output Total 1550 900 Balance -1550 -900 - Medications Medications: Current Medications Acetaminophen (Tylenol 650 Mg Supp) 650 mg RC Q6H PRN PRN Reason: Fever >100.4 F Acetylcysteine (Acetylcysteine 20%) 4 ml IH [id number] PRN PRN Reason: Cough and congestion Last Admin: 08/08/17 01:42 Dose: 4 ml Atorvastatin Calcium (Lipitor) 40 mg PO DIN [facility] Last Admin: 08/08/17 18:24 Dose: 40 mg Donepezil HCl (Aricept) 5 mg PO HS [facility] Last Admin: 08/09/17 21:30 Dose: Not Given Enoxaparin Sodium (Lovenox) 40 mg SC DAILY [facility] PRN Reason: Protocol Last Admin: 08/09/17 08:59 Dose: 40 mg Meropenem/Sodium Chloride (Meropenem 1g/Ns 100ml Ivpb) 1 gm in 100 mls @ 100 mls/hr IVPB Q12 [facility] PRN Reason: Protocol Last Admin: 08/09/17 21:25 Dose: 100 mls/hr Vancomycin HCl (Vancomycin 1gm) 1 gm in 250 mls @ 167 mls/hr IVPB Q12 [facility] PRN Reason: Protocol Last Admin: 08/09/17 21:29 Dose: 167 mls/hr Sodium Chloride (Sodium Chloride 0.9%) 1,000 mls @ 60 mls/hr IV .[id number] [facility] Last Admin: 08/09/17 06:40 Dose: 60 mls/hr Metronidazole (Flagyl) 500 mg in 100 mls @ 100 mls/hr IVPB Q8 [facility] PRN Reason: Protocol Last Admin: 08/10/17 06:47 Dose: 100 mls/hr Levalbuterol HCl (Xopenex) 0.63 mg IH [id number] PRN PRN Reason: Shortness of Breath Last Admin: 08/08/17 01:42 Dose: 0.63 mg Morphine Sulfate (Morphine) 1 mg IVP Q6H PRN PRN Reason: Pain, severe (8-10) Last Admin: 08/08/17 21:09 Dose: 1 mg Ondansetron HCl (Zofran Inj) 4 mg IVP Q4H PRN PRN Reason: Nausea/Vomiting Pantoprazole Sodium (Protonix Susp) 40 mg PO ACB [facility] Last Admin: 08/09/17 09:01 Dose: 40 mg Saliva Substitute (Saliva Substitute) 10 ml PO Q4H PRN PRN Reason: Xerostomia Stop: 08/13/17 23:59 - Labs Labs: 08/09/17 06:20 08/09/17 06:20 PT 12.3 SECONDS (9.4-12.5) 08/09/17 06:20 INR 1.07 (0.93-1.08) 08/09/17 06:20 APTT 32.2 Seconds (25.1-36.5) 08/04/17 20:57 - Constitutional Appears: Chronically Ill - Head Exam Head Exam: ATRAUMATIC, NORMOCEPHALIC - Eye Exam Eye Exam: EOMI, Normal appearance - ENT Exam ENT Exam: Mucous Membranes Moist - Respiratory Exam Respiratory Exam: NORMAL BREATHING PATTERN. absent: Respiratory Distress Additional comments: chest tube on water seal. no air leak noted. - Cardiovascular Exam Cardiovascular Exam: REGULAR RHYTHM. absent: Tachycardia - GI/Abdominal Exam GI & Abdominal Exam: Soft, Tenderness (RLQ), Normal Bowel Sounds. absent: Distended, Guarding, Rigid Assessment and Plan - Assessment and Plan (Free Text) Assessment: 87 y/o male w/ hydropneumothorax s/p chest tube placement as well as right colitis, r/o ischemic colitis Plan: -u/s unremarkable, recommended angio -cont abx -ok for CLD -f/u am CXR -pending results determine chest tube removal -needs instruction on IS, encourage use -further recs per Dr. Carrillo Nguyen PGY3
--- NOTE | 2017-08-10 08:59 | RAD ---
HISTORY: pneumo COMPARISON: 08/09/2017 FINDINGS: LUNGS: Small right apical pneumothorax. Chest tube remains in place PLEURA: No significant pleural effusion identified, no pneumothorax apparent. CARDIOVASCULAR: Normal. OSSEOUS STRUCTURES: No significant abnormalities. VISUALIZED UPPER ABDOMEN: Normal. OTHER FINDINGS: None. IMPRESSION: Small right apical pneumothorax. Chest tube remains in place
--- NOTE | 2017-08-10 09:09 | PN ---
DATE: 07/08/2017 SUBJECTIVE: The patient in ICU, comfortable, in no distress. Chest tube is off suction. He has no new complaints. PHYSICAL EXAMINATION VITAL SIGNS: Temperature 98.4, heart rate 64, blood pressure is 170/60, respirations 15, saturation 94%. HEAD AND NECK: Normal. No JVD. No thyromegaly. CHEST: Clear. There was diminished breath sounds more in the right. Chest tube is connected to the device. CARDIAC: First sound and second sound normal. No murmur, rub, or gallop. ABDOMEN: Soft. PEG tube site is clean. EXTREMITIES: No edema. NEUROLOGICAL: The patient moves all extremities. He is awake and responds appropriate to calling his name and answers in Italian if he has pain or no. LABORATORY DATA: On 08/08/2017, his white count is down to 17.2, hemoglobin 10.6, hematocrit 32.4, platelets 194,000. His chemistry showed sodium 143, potassium 4, chloride 109, bicarbonate 28, BUN 16, creatinine 0.8. Liver function test is normal. IMPRESSION AND PLAN 1. The patient had hydropneumothorax, status post chest tube insertion, seems to be doing well. 2. The patient had chronic obstructive pulmonary disease. We will continue nebulizer treatment. 3. Urosepsis. Continue vancomycin and meropenem, seems to be doing well. We will follow up with ID packaging sales consultant on that. 4. Hypertension, continue his medication as needed plus clonidine as needed. 5. Continue gastrointestinal and deep venous thrombosis prophylaxis. 6. Dementia. The patient has chronic dementia with multiple medical problems. Family wants to put him in a longterm or LTAC. We will continue to follow up on that at this moment and continue current treatment. 7. Abdominal pain. Abdomen distended. The patient has possible ischemic colitis in the right-sided colon and cecum area. We will observe and we will monitor his condition, if getting worse or getting better. Continue followup on that. Cody Aguilar MD
[2017-08-10] MEDS: Meropenem 1g/NS 100mL IVPB 1 GM/100 ML PIGGYBACK IVPB SCH ×2 (10:52→21:48)
[2017-08-10] MEDS: Enoxaparin 40 mg Syringe SC SCH (10:53)
[2017-08-10] MEDS: Vancomycin 1gm in NS 250ml 1 GM/250 ML BAG IVPB SCH ×2 (10:54→21:48)
--- NOTE | 2017-08-10 11:11 | CT ---
PROCEDURE: CT Abdomen and Pelvis with contrast HISTORY: r/o possible mesenteric ischemia COMPARISON: 08/08/2017 TECHNIQUE: Contrast dose: 150 cc of Omni 350 Radiation dose: Total exam DLP = 527 mGy-cm. This CT exam was performed using one or more of the following dose reduction techniques: Automated exposure control, adjustment of the mA and/or kV according to patient size, and/or use of iterative reconstruction technique. FINDINGS: LOWER THORAX: There is a chest tube on the right. There is a persistent small basilar pneumothorax. LIVER: Simple cysts GALLBLADDER AND BILE DUCTS: Gallstones PANCREAS: Unremarkable. No gross lesion or ductal dilatation. SPLEEN: Unremarkable. ADRENALS: Unremarkable. No mass. KIDNEYS AND URETERS: Unremarkable. No hydronephrosis. No solid mass. VASCULATURE: Atherosclerotic changes are seen throughout the aorta and major branches. The SMA is calcified but patent. There is no stenosis or thrombosis. The celiac axis is also patent. BOWEL: There is persistent severe mural thickening in the ascending colon. A gastrostomy tube is present APPENDIX: Normal appendix. PERITONEUM: Unremarkable. No free fluid. No free air. LYMPH NODES: Unremarkable. No enlarged lymph nodes. BLADDER: Light catheter in the bladder REPRODUCTIVE: Unremarkable. BONES: No acute fracture. OTHER FINDINGS: None. IMPRESSION: No evidence of stenosis or occlusion of the celiac or SMA. Persistent severe mural thickening in the ascending colon.
--- NOTE | 2017-08-10 12:41 | PN ---
DATE: 08/09/2017 SUBJECTIVE: The patient is in the medical floor. He is comfortable, no distress. Chest tube is still there. He has no nausea, no vomiting and no respiratory distress. PHYSICAL EXAMINATION VITAL SIGNS: Temperature 97, heart rate 77, blood pressure 139/75, respiration 23, saturation 98%. HEAD AND NECK: Normal. No JVD. No thyromegaly. CHEST: Clear. Good air entry. There is a chest tube connected to the right side of the chest. CARDIAC: First sound and second sound normal. ABDOMEN: Soft and nontender. The PEG tube site is clean. EXTREMITIES: No edema. NEUROLOGIC: The patient has general weakness, but he is alert and awake. He responds to questions appropriately. LABORATORY DATA: Sodium 140, potassium 4.1, chloride 103, bicarbonate 26, BUN 14, creatinine 0.7. Liver enzymes is normal. CBC shows white count 15.3, hemoglobin 12.5, hematocrit 37.4, platelets 237. IMPRESSION AND PLAN: 1. Urosepsis. Continue current antibiotic therapy as per ID, Dr. Pro. The patient is getting vancomycin and meropenem plus Flagyl. 2. Ischemic colitis. Continue current therapy, hydration and follow up with Dr. Valerio. 3. Hypertension, stable. Continue current treatment. 4. Chronic dementia, on Aricept. 5. Chronic obstructive pulmonary disease. Continue Mucomyst nebulizer treatment. 6. Continue gastrointestinal and deep venous thrombosis prophylaxis, pain management and follow up clinically. 7. Chest tube for hydropneumothorax. We will monitor before discharge. At this moment, continue current therapy and follow up clinically. We will add baby aspirin to the regimen and we will follow up clinically. Cody Aguilar MD
--- NOTE | 2017-08-10 13:55 | CP.PCM.PN ---
<Margot Esquivel - Last Filed: 08/10/17 13:51> Subjective - Date & Time of Evaluation Date of Evaluation: 08/10/17 Time of Evaluation: 10:30 - Subjective Subjective: GI Progress Note Dr Valerio Pt seen and examined at bedside. Chest tube in place. Pt stated his RLQ abdominal pain has improved. Pt was going to CT for further assessment. Pt denied fever, chills sob, nausea, vomiting, constipation, diarrhea, or urinary symptoms. Objective - Vital Signs/Intake and Output Vital Signs (last 24 hours): Temp Pulse Resp BP Pulse Ox 98.5 F 70 20 159/72 H 96 08/10/17 07:30 08/10/17 07:30 08/10/17 07:30 08/10/17 07:30 08/10/17 07:30 Intake and Output: 08/10/17 08/10/17 06:59 18:59 Intake Total 0 Output Total 900 Balance -900 - Medications Medications: Current Medications Acetaminophen (Tylenol 650 Mg Supp) 650 mg RC Q6H PRN PRN Reason: Fever >100.4 F Acetylcysteine (Acetylcysteine 20%) 4 ml IH [id number] PRN PRN Reason: Cough and congestion Last Admin: 08/08/17 01:42 Dose: 4 ml Aspirin (Ecotrin) 81 mg PO DAILY [facility] Atorvastatin Calcium (Lipitor) 40 mg PO DIN [facility] Last Admin: 08/08/17 18:24 Dose: 40 mg Donepezil HCl (Aricept) 5 mg PO HS [facility] Last Admin: 08/09/17 21:30 Dose: Not Given Enoxaparin Sodium (Lovenox) 40 mg SC DAILY [facility] PRN Reason: Protocol Last Admin: 08/10/17 10:53 Dose: 40 mg Meropenem/Sodium Chloride (Meropenem 1g/Ns 100ml Ivpb) 1 gm in 100 mls @ 100 mls/hr IVPB Q12 [facility] PRN Reason: Protocol Last Admin: 08/10/17 10:52 Dose: 100 mls/hr Vancomycin HCl (Vancomycin 1gm) 1 gm in 250 mls @ 167 mls/hr IVPB Q12 [facility] PRN Reason: Protocol Last Admin: 08/10/17 10:54 Dose: 167 mls/hr Sodium Chloride (Sodium Chloride 0.9%) 1,000 mls @ 60 mls/hr IV .[id number] [facility] Last Admin: 08/09/17 06:40 Dose: 60 mls/hr Metronidazole (Flagyl) 500 mg in 100 mls @ 100 mls/hr IVPB Q8 [facility] PRN Reason: Protocol Last Admin: 08/10/17 13:28 Dose: 100 mls/hr Levalbuterol HCl (Xopenex) 0.63 mg IH [id number] PRN PRN Reason: Shortness of Breath Last Admin: 08/08/17 01:42 Dose: 0.63 mg Morphine Sulfate (Morphine) 1 mg IVP Q6H PRN PRN Reason: Pain, severe (8-10) Last Admin: 08/08/17 21:09 Dose: 1 mg Ondansetron HCl (Zofran Inj) 4 mg IVP Q4H PRN PRN Reason: Nausea/Vomiting Pantoprazole Sodium (Protonix Susp) 40 mg PO ACB [facility] Last Admin: 08/09/17 09:01 Dose: 40 mg Saliva Substitute (Saliva Substitute) 10 ml PO Q4H PRN PRN Reason: Xerostomia Stop: 08/13/17 23:59 - Labs Labs: 08/09/17 06:20 08/09/17 06:20 PT 12.3 SECONDS (9.4-12.5) 08/09/17 06:20 INR 1.07 (0.93-1.08) 08/09/17 06:20 APTT 32.2 Seconds (25.1-36.5) 08/04/17 20:57 - Constitutional Appears: No Acute Distress - Head Exam Head Exam: ATRAUMATIC, NORMAL INSPECTION, NORMOCEPHALIC - Eye Exam Eye Exam: EOMI, Normal appearance, PERRL Pupil Exam: NORMAL ACCOMODATION, PERRL - ENT Exam ENT Exam: Mucous Membranes Moist, Normal Exam - Respiratory Exam Respiratory Exam: Clear to Ausculation Bilateral, NORMAL BREATHING PATTERN Additional comments: CT in place - Cardiovascular Exam Cardiovascular Exam: REGULAR RHYTHM, +S1, +S2. absent: Murmur - GI/Abdominal Exam GI & Abdominal Exam: Soft, Tenderness (RLQ TTP), Normal Bowel Sounds - Extremities Exam Extremities Exam: Full ROM, Normal Capillary Refill, Normal Inspection. absent : Joint Swelling, Pedal Edema - Neurological Exam Neurological Exam: Alert, Awake, CN II-XII Intact, Normal Gait, Oriented x3 - Psychiatric Exam Psychiatric exam: Normal Affect, Normal Mood - Skin Skin Exam: Dry, Intact, Normal Color, Warm Assessment and Plan - Assessment and Plan (Free Text) Assessment: 87 Male with a PMHx of prior CVA, progressive dementia, dysphagia s/p PEG tube placement, COPD and recent admission for pneumonia [place] [facility] [place] and found to be in severe sepsis 2/2 UTI w/ ESBL. CXR showed moderate right hydro-pneumothorax. R sided chest tube was placed with 2 L serosanguinous fluid drained. Post-procedure CXR showed interval improvement. However, repeat CXR demonstrated worsening pneumothorax, and Chest tube was placed to wall suction. Repeat CXR in AM CT abdomen/pelvis showed tephlitis, will hold tube feeds for now. Repeat Abdomen CT demonstrated active severe colitis in ascending colitis. Cdiff and ova/parasite negative. Continue abx, ppi. Will add flagyl for double anaerobic coverage. Worsening colitis 2/2 ischemia vs IBD vs infx. imaging revealed patent SMA, no obstruction, Repeat CT demonstrated persistent severe Colitis. continue medical management and keep NPO. discussed with Dr. Valerio <Seth Valerio V - Last Filed: 08/10/17 23:09> Objective - Vital Signs/Intake and Output Vital Signs (last 24 hours): Temp Pulse Resp BP Pulse Ox 98.5 F 67 18 148/70 97 08/10/17 16:00 08/10/17 16:00 08/10/17 16:00 08/10/17 16:00 08/10/17 16:00 Intake and Output: 08/10/17 08/11/17 18:59 06:59 Intake Total 0 Output Total 300 Balance -300 - Medications Medications: Current Medications Acetaminophen (Tylenol 650 Mg Supp) 650 mg RC Q6H PRN PRN Reason: Fever >100.4 F Acetylcysteine (Acetylcysteine 20%) 4 ml IH [id number] PRN PRN Reason: Cough and congestion Last Admin: 08/08/17 01:42 Dose: 4 ml Amlodipine Besylate (Norvasc) 10 mg PO DAILY [facility] Aspirin (Ecotrin) 81 mg PO DAILY [facility] Last Admin: 08/10/17 18:10 Dose: 81 mg Atorvastatin Calcium (Lipitor) 40 mg PO DIN [facility] Last Admin: 08/10/17 18:11 Dose: 40 mg Donepezil HCl (Aricept) 5 mg PO HS [facility] Last Admin: 08/10/17 21:47 Dose: 5 mg Enoxaparin Sodium (Lovenox) 40 mg SC DAILY [facility] PRN Reason: Protocol Last Admin: 08/10/17 10:53 Dose: 40 mg Hydralazine HCl (Apresoline) 10 mg PO QID PRN PRN Reason: for sbp>170 Meropenem/Sodium Chloride (Meropenem 1g/Ns 100ml Ivpb) 1 gm in 100 mls @ 100 mls/hr IVPB Q12 [facility] PRN Reason: Protocol Last Admin: 08/10/17 21:48 Dose: 100 mls/hr Vancomycin HCl (Vancomycin 1gm) 1 gm in 250 mls @ 167 mls/hr IVPB Q12 [facility] PRN Reason: Protocol Last Admin: 08/10/17 21:48 Dose: 167 mls/hr Metronidazole (Flagyl) 500 mg in 100 mls @ 100 mls/hr IVPB Q8 [facility] PRN Reason: Protocol Last Admin: 08/10/17 21:47 Dose: 100 mls/hr Dextrose/Sodium Chloride (Dextrose 5%/0.45% Ns 1000 Ml) 1,000 mls @ 70 mls/hr IV .[id number] [facility] Last Admin: 08/10/17 20:13 Dose: 70 mls/hr Levalbuterol HCl (Xopenex) 0.63 mg IH [id number] PRN PRN Reason: Shortness of Breath Last Admin: 08/08/17 01:42 Dose: 0.63 mg Metoprolol Tartrate (Lopressor) 25 mg PO BID [facility] Last Admin: 08/10/17 18:11 Dose: 25 mg Morphine Sulfate (Morphine) 1 mg IVP Q6H PRN PRN Reason: Pain, severe (8-10) Last Admin: 08/08/17 21:09 Dose: 1 mg Ondansetron HCl (Zofran Inj) 4 mg IVP Q4H PRN PRN Reason: Nausea/Vomiting Pantoprazole Sodium (Protonix Susp) 40 mg PO ACB [facility] Last Admin: 08/10/17 18:10 Dose: 40 mg Saliva Substitute (Saliva Substitute) 10 ml PO Q4H PRN PRN Reason: Xerostomia Stop: 08/13/17 23:59 - Labs Labs: 08/09/17 06:20 08/09/17 06:20 PT 12.3 SECONDS (9.4-12.5) 08/09/17 06:20 INR 1.07 (0.93-1.08) 08/09/17 06:20 APTT 32.2 Seconds (25.1-36.5) 08/04/17 20:57 Attending/Attestation - Attestation I have personally seen and examined this patient.: Yes I have fully participated in the care of the patient.: Yes I have reviewed all pertinent clinical information, including history, physical exam and plan: Yes
[2017-08-10] MEDS: Pantoprazole 40 mg Susp UD PO SCH (18:10)
[2017-08-10] MEDS ORDERED: Dextrose 50% SYRINGE Inj (50 ml) IVP ONE (20:02)
[2017-08-10] MEDS: Dextrose 5%/0.45% NS 1,000 ML IV SCH (20:13)
--- NOTE | 2017-08-10 21:19 | PN ---
DATE: 08/10/2017 PULMONARY PROGRESS NOTE REFERRING PHYSICIAN: Cody Aguilar MD. SUBJECTIVE: He is lying in the bed under one-to-one supervision. Sleepy, arousable. Night was unremarkable. No cough. No sputum production. No hemoptysis. Denying any abdominal pain. No leg pain or leg swelling. OBJECTIVE: GENERAL: In no acute distress. VITAL SIGNS: Temperature is 98, heart rate 70, respiratory rate is 20, blood pressure 159/72, pulse ox 96% on nasal cannula. HEENT: Moist mucous membrane. Crowded airway. NECK: Supple. No JVD. LUNGS: Have a fair airflow with rhonchi. HEART: S1 and S2. ABDOMEN: Soft, nontender, nondistended. G-tube area looks okay. EXTREMITIES: No edema. NEUROLOGIC: Sleepy, arousable. Follows simple command. MEDICATIONS: He is on Mucomyst inhaled q. 6 hours p.r.n., hydralazine 10 mg q.i.d. p.r.n., Aricept 5 mg at bedtime, Ecotrin 81 mg daily, Flagyl 500 mg q. 8 hours, Lipitor 40 mg daily, metoprolol tartrate 25 mg twice a day, Lovenox 40 mg daily, meropenem 1 g IV q. 12 hours, Norvasc 10 mg daily, Protonix 40 mg daily, saliva substitute q. 4 hours p.r.n., IV fluid normal saline 60 mL/hour, Tylenol p.r.n., vancomycin 1 g IV q. 12 hours, Xopenex inhaled q. 6 hours, Zofran p.r.n. basis. LABORATORY DATA: Shows hemoglobin 12.5 yesterday. Microbiology: Pleural fluid, there is no growth. Chest x-ray Done today shows small right apical pneumothorax. He had a CT angio done this morning shows no evidence of stenosis or occlusion of the celiac or SMA. Persistent severe mural thickening in the ascending colon. Also, the chest tube is in the right chest with the persistent small basilar pneumothorax. IMPRESSION AND PLAN: Chronic obstructive lung disease, healthcare-associated pneumonia, status post hydropneumothorax requiring chest tube, still has apical small pneumothorax, history of cerebrovascular accident, dementia, oropharyngeal dysphagia, colitis, suspected ischemia. CTA does not make any concern. Pulmonary point of view, keep head at 45 degrees. Bronchodilator. Followup chest x-ray. If there is no air leak by tomorrow, may pull out chest tube. Gastric prophylaxis, antibiotics, keep head at 45 degrees. Aspiration precaution. Follow up labs in the morning. Thank you and we will follow with you. Dl Lynch MD
[2017-08-11] MEDS: metroNIDAZOLE IV 500 mg/100 ml 500 MG/100 ML BAG IVPB SCH ×3 (05:47→21:32)
[2017-08-11 07:19] LABS: HEMOGLOBIN 11.5 g/dL (14.0-18.0); MEAN CELL VOLUME 83.5 fl (80.0-105.0); MEAN CORPUSCULAR HEMOGLOBIN 28.3 pg (25.0-35.0); MEAN CORPUSCULAR HGB CONC 33.8 g/dl (31.0-37.0); MEAN PLATELET VOLUME 12.1 fl (7.0-11.0); RBC 4.07 10^6/uL (3.5-6.1); RED CELL DISTRIBUTION WIDTH 14.9 % (11.5-14.5); WHITE BLOOD COUNT 11.9 10^3/ul (4.5-11.0)
[2017-08-11 07:34] LABS: ALBUMIN 2.8 g/dL (3.0-4.8); ALT/SGPT 54 U/L (7-56); AST/SGOT 53 U/L (17-59); BLOOD UREA NITROGEN 16 mg/dL (7-21); CALCIUM 8.4 mg/dL (8.4-10.5); GFR AFRICAN-AMERICAN > 60; GFR NON-AFRICAN AMERICAN > 60
[2017-08-11] MEDS: Pantoprazole 40 mg Susp UD PO SCH (08:30)
--- NOTE | 2017-08-11 08:48 | RAD ---
HISTORY: comparison COMPARISON: 08/10/2017. FINDINGS: The right chest tube is stable in position directed towards the apex. LUNGS: The lungs are clear. PLEURA: Small right apical pneumothorax and small right pleural effusion. CARDIOVASCULAR: The heart remains enlarged. OSSEOUS STRUCTURES: No significant abnormalities. VISUALIZED UPPER ABDOMEN: Normal. OTHER FINDINGS: None. IMPRESSION: Small right apical pneumothorax and persistent small right pleural effusion. Stable position of chest tube.
[2017-08-11] MEDS: Vancomycin 1gm in NS 250ml 1 GM/250 ML BAG IVPB SCH (09:10)
[2017-08-11] MEDS: Enoxaparin 40 mg Syringe SC SCH (09:10)
[2017-08-11] MEDS: Meropenem 1g/NS 100mL IVPB 1 GM/100 ML PIGGYBACK IVPB SCH ×2 (09:10→21:32)
--- NOTE | 2017-08-11 10:57 | PN ---
DATE: Chest view shows a small apical pneumothorax. The bigger issue is the swelling in the cecum. MRA was done, which showed patent vessels. Clostridium difficile was negative. There is still little bit of tenderness. It is of a concern, but asked that patient be seen by GI. We will discuss. Morgan Vizcaino MD
--- NOTE | 2017-08-11 11:13 | CP.PCM.PN ---
Subjective - Date & Time of Evaluation Date of Evaluation: 08/11/17 Time of Evaluation: 11:10 - Subjective Subjective: Surgery: Dr. Vizcaino Pt seen and examined. Resting comfortably in bed. Mild discomfort at CT site. No SOB. Objective - Vital Signs/Intake and Output Vital Signs (last 24 hours): Temp Pulse Resp BP Pulse Ox 97.8 F 62 18 145/68 94 L 08/11/17 07:00 08/11/17 09:13 08/11/17 07:00 08/11/17 09:11 08/11/17 07:00 Intake and Output: 08/11/17 08/11/17 06:59 18:59 Intake Total 0 Output Total 800 Balance -800 - Medications Medications: Current Medications Acetaminophen (Tylenol 650 Mg Supp) 650 mg RC Q6H PRN PRN Reason: Fever >100.4 F Acetylcysteine (Acetylcysteine 20%) 4 ml IH [id number] PRN PRN Reason: Cough and congestion Last Admin: 08/08/17 01:42 Dose: 4 ml Amlodipine Besylate (Norvasc) 10 mg PO DAILY [facility] Last Admin: 08/11/17 09:11 Dose: 10 mg Aspirin (Ecotrin) 81 mg PO DAILY [facility] Last Admin: 08/11/17 09:13 Dose: 81 mg Atorvastatin Calcium (Lipitor) 40 mg PO DIN [facility] Last Admin: 08/10/17 18:11 Dose: 40 mg Donepezil HCl (Aricept) 5 mg PO HS [facility] Last Admin: 08/10/17 21:47 Dose: 5 mg Enoxaparin Sodium (Lovenox) 40 mg SC DAILY [facility] PRN Reason: Protocol Last Admin: 08/11/17 09:10 Dose: 40 mg Hydralazine HCl (Apresoline) 10 mg PO QID PRN PRN Reason: for sbp>170 Meropenem/Sodium Chloride (Meropenem 1g/Ns 100ml Ivpb) 1 gm in 100 mls @ 100 mls/hr IVPB Q12 [facility] PRN Reason: Protocol Last Admin: 08/11/17 09:10 Dose: 100 mls/hr Vancomycin HCl (Vancomycin 1gm) 1 gm in 250 mls @ 167 mls/hr IVPB Q12 [facility] PRN Reason: Protocol Last Admin: 08/11/17 09:10 Dose: 167 mls/hr Metronidazole (Flagyl) 500 mg in 100 mls @ 100 mls/hr IVPB Q8 [facility] PRN Reason: Protocol Last Admin: 08/11/17 05:47 Dose: 100 mls/hr Dextrose/Sodium Chloride (Dextrose 5%/0.45% Ns 1000 Ml) 1,000 mls @ 70 mls/hr IV .[id number] [facility] Last Admin: 08/10/17 20:13 Dose: 70 mls/hr Levalbuterol HCl (Xopenex) 0.63 mg IH [id number] PRN PRN Reason: Shortness of Breath Last Admin: 08/08/17 01:42 Dose: 0.63 mg Metoprolol Tartrate (Lopressor) 25 mg PO BID [facility] Last Admin: 08/11/17 09:13 Dose: 25 mg Morphine Sulfate (Morphine) 1 mg IVP Q6H PRN PRN Reason: Pain, severe (8-10) Last Admin: 08/08/17 21:09 Dose: 1 mg Ondansetron HCl (Zofran Inj) 4 mg IVP Q4H PRN PRN Reason: Nausea/Vomiting Pantoprazole Sodium (Protonix Susp) 40 mg PO ACB [facility] Last Admin: 08/11/17 08:30 Dose: 40 mg Saliva Substitute (Saliva Substitute) 10 ml PO Q4H PRN PRN Reason: Xerostomia Stop: 08/13/17 23:59 - Labs Labs: 08/11/17 06:30 08/11/17 06:30 PT 12.3 SECONDS (9.4-12.5) 08/09/17 06:20 INR 1.07 (0.93-1.08) 08/09/17 06:20 APTT 32.2 Seconds (25.1-36.5) 08/04/17 20:57 - Constitutional Appears: Non-toxic, No Acute Distress - Head Exam Head Exam: ATRAUMATIC, NORMOCEPHALIC - Eye Exam Eye Exam: EOMI - ENT Exam ENT Exam: Mucous Membranes Moist - Neck Exam Neck Exam: Full ROM - Respiratory Exam Respiratory Exam: NORMAL BREATHING PATTERN. absent: Accessory Muscle Use, Respiratory Distress Additional comments: R side CT in place - GI/Abdominal Exam GI & Abdominal Exam: Soft. absent: Tenderness - Extremities Exam Extremities Exam: absent: Calf Tenderness, Pedal Edema - Neurological Exam Neurological Exam: Alert, Awake - Psychiatric Exam Psychiatric exam: Normal Affect, Normal Mood Assessment and Plan - Assessment and Plan (Free Text) Assessment: 87M s/p hydro PTX, s/p R side CT -CXR: R side apical PTX -CT: 0cc/12hr output, tidling, no air leak -will keep CT to suction and increase to pressure to 40 -AM CXR -d/w attending\ Zemaitis PGY3
--- NOTE | 2017-08-11 13:06 | PN ---
DATE: 08/10/2017 SUBJECTIVE: The patient seems comfortable, no distress. He is not getting any feeding due to possible ischemic colon; otherwise, stable; no complaints. PHYSICAL EXAMINATION GENERAL: He is alert, awake. He is responding properly. VITAL SIGNS: His physical examination on 08/10/2017, temperature 98.5, heart rate 67, blood pressure 148/70, respirations 18, sat 97% on room air. HEAD AND NECK: Normal. No JVD, no thyromegaly. CHEST: Clear, good entry. CARDIAC: First sound and second sound normal. ABDOMEN: Soft, tenderness in the lower abdomen more on the right side. Bowel sounds intact. EXTREMITIES: No edema. NEUROLOGIC: The patient moves all extremities and responds properly; positive dysphagia, for that reason he had PEG tube. LABORATORY DATA: White count is better, improving, coming down. His white count is 15.3, hemoglobin 12.5, hematocrit 37.4, platelets 327,000. Chemistry: Last lab here, sodium 140, potassium 4.1, chloride 103, bicarbonate 26, BUN 14, creatinine 0.7. Liven function test is normal. Blood sugar 64. IMPRESSION AND PLAN 1. Ischemic colitis and mesenteric ischemia, right colon. At this time, we will continue n.p.o. We will follow up GI recommendations. Continue IV fluids, we will change it to D5 half-normal saline at 70 mL per hour for now and continue IV antibiotics. The patient currently getting meropenem and vancomycin. 2. Chronic obstructive pulmonary disease, hydropneumothorax. Plan is to continue nebulizer treatment; chest tube is locked, not connected to suction and probably, will be removed soon. 3. Severe sepsis, status post acute renal failure due to intraabdominal infections, ascending colitis, right-sided pneumohydrothorax and status post chest tube with possible ischemic colitis. At this time, we will continue his antibiotics meropenem, vancomycin and we will follow up clinically. 4. Dementia. 5. Hypertension. 6. Dysphagia. Continue current therapy, n.p.o. and we will follow up clinically. The patient also getting multiple medications. MEDICATIONS: The patient is on are as follows: Mucomyst, hydralazine 10 mg t.i.d. p.r.n., Aricept 5 mg at bedtime, D5 half-normal at 70 mL per hour, aspirin 81 mg daily, Flagyl 500 mg q. 8h, Lipitor 10 mg, Lopressor 25 mg b.i.d., Lovenox 40 mg subcutaneous daily, meropenem 1 g q. 12 hours, morphine 1 mg q. 6 hour p.r.n., Norvasc 10 mg once a day, potassium chloride 20 mEq IV once, Protonix 40 mg daily, Silvadene saliva substitute, Tylenol, vancomycin 1 g q. 12 hours, Xopenex four times a day. and Zofran 4 mg p.r.n. Continue current therapy, follow up clinically and continue GI and DVT prophylaxis. Cody Aguilar MD
[2017-08-11] MEDS: Dextrose 5%/0.45% NS 1,000 ML IV SCH (14:16)
--- NOTE | 2017-08-11 19:04 | CP.PCM.PN ---
<Sarah Andrade - Last Filed: 08/11/17 19:03> Subjective - Date & Time of Evaluation Date of Evaluation: 08/11/17 Time of Evaluation: 12:05 - Subjective Subjective: Seen and examined at the bedside earlier today, chart reviewed. Patient is awake and alert denies nausea, vomiting, or abdominal pain. Currently nothing by mouth. No reports of acute overnight events. Patient still has right-sided chest tube. Objective - Vital Signs/Intake and Output Vital Signs (last 24 hours): Temp Pulse Resp BP Pulse Ox 97.3 F L 60 18 142/61 99 08/11/17 16:00 08/11/17 17:32 08/11/17 16:00 08/11/17 17:32 08/11/17 16:00 Intake and Output: 08/11/17 08/11/17 06:59 18:59 Intake Total 0 Output Total 800 400 Balance -800 -400 - Medications Medications: Current Medications Acetaminophen (Tylenol 650 Mg Supp) 650 mg RC Q6H PRN PRN Reason: Fever >100.4 F Acetylcysteine (Acetylcysteine 20%) 4 ml IH [id number] PRN PRN Reason: Cough and congestion Last Admin: 08/08/17 01:42 Dose: 4 ml Amlodipine Besylate (Norvasc) 10 mg PO DAILY [facility] Last Admin: 08/11/17 09:11 Dose: 10 mg Aspirin (Ecotrin) 81 mg PO DAILY [facility] Last Admin: 08/11/17 09:13 Dose: 81 mg Atorvastatin Calcium (Lipitor) 40 mg PO DIN [facility] Last Admin: 08/11/17 17:32 Dose: 40 mg Donepezil HCl (Aricept) 5 mg PO HS [facility] Last Admin: 08/10/17 21:47 Dose: 5 mg Enoxaparin Sodium (Lovenox) 40 mg SC DAILY [facility] PRN Reason: Protocol Last Admin: 08/11/17 09:10 Dose: 40 mg Hydralazine HCl (Apresoline) 10 mg PO QID PRN PRN Reason: for sbp>170 Meropenem/Sodium Chloride (Meropenem 1g/Ns 100ml Ivpb) 1 gm in 100 mls @ 100 mls/hr IVPB Q12 RYLIE PRN Reason: Protocol Last Admin: 08/11/17 09:10 Dose: 100 mls/hr Vancomycin HCl (Vancomycin 1gm) 1 gm in 250 mls @ 167 mls/hr IVPB Q12 RYLIE PRN Reason: Protocol Last Admin: 08/11/17 09:10 Dose: 167 mls/hr Metronidazole (Flagyl) 500 mg in 100 mls @ 100 mls/hr IVPB Q8 RYLIE PRN Reason: Protocol Last Admin: 08/11/17 14:16 Dose: 100 mls/hr Dextrose/Sodium Chloride (Dextrose 5%/0.45% Ns 1000 Ml) 1,000 mls @ 70 mls/hr IV .[id number] [facility] Last Admin: 08/11/17 14:16 Dose: 70 mls/hr Levalbuterol HCl (Xopenex) 0.63 mg IH [id number] PRN PRN Reason: Shortness of Breath Last Admin: 08/08/17 01:42 Dose: 0.63 mg Metoprolol Tartrate (Lopressor) 25 mg PO BID [facility] Last Admin: 08/11/17 17:32 Dose: 25 mg Morphine Sulfate (Morphine) 1 mg IVP Q6H PRN PRN Reason: Pain, severe (8-10) Last Admin: 08/08/17 21:09 Dose: 1 mg Ondansetron HCl (Zofran Inj) 4 mg IVP Q4H PRN PRN Reason: Nausea/Vomiting Pantoprazole Sodium (Protonix Susp) 40 mg PO ACB [facility] Last Admin: 08/11/17 08:30 Dose: 40 mg Saliva Substitute (Saliva Substitute) 10 ml PO Q4H PRN PRN Reason: Xerostomia Stop: 08/13/17 23:59 - Labs Labs: 08/11/17 06:30 08/11/17 06:30 PT 12.3 SECONDS (9.4-12.5) 08/09/17 06:20 INR 1.07 (0.93-1.08) 08/09/17 06:20 APTT 32.2 Seconds (25.1-36.5) 08/04/17 20:57 - Constitutional Appears: No Acute Distress - Eye Exam Eye Exam: Normal appearance. absent: Scleral icterus - ENT Exam ENT Exam: Mucous Membranes Moist - Neck Exam Neck Exam: Normal Inspection - Respiratory Exam Respiratory Exam: NORMAL BREATHING PATTERN. absent: Respiratory Distress - Cardiovascular Exam Cardiovascular Exam: +S1, +S2 - GI/Abdominal Exam GI & Abdominal Exam: Soft, Normal Bowel Sounds. absent: Guarding, Tenderness, Rebound Additional comments: (+) PEG - Extremities Exam Extremities Exam: absent: Calf Tenderness, Pedal Edema - Neurological Exam Neurological Exam: Alert, Awake, Oriented x3 - Skin Skin Exam: Dry, Warm Assessment and Plan - Assessment and Plan (Free Text) Assessment: Assessment: Pneumonia Sepsis secondary to UTI with ESBL Right hydropneumothorax with chest tube Severe Colitits, C. difficile and O&P negative, likely secondary to ischemia versus IBD versus infection, patient status post abdominal Doppler reporting patent SMA, no obstruction status post repeat CT scan with persistent severe colitis Plan: Nothing by mouth, patient currently no abdominal pain consider start PEG feedings Continue IV antibiotics as per ID On Flagyl Continue DVT prophylaxis Continue GI prophylaxis Seen and discussed with Dr. Valerio <Seth Valerio V - Last Filed: 08/11/17 22:37> Objective - Vital Signs/Intake and Output Vital Signs (last 24 hours): Temp Pulse Resp BP Pulse Ox 97.3 F L 60 18 142/61 99 08/11/17 16:00 08/11/17 17:32 08/11/17 16:00 08/11/17 17:32 08/11/17 16:00 Intake and Output: 08/11/17 08/12/17 18:59 06:59 Output Total 400 Balance -400 - Medications Medications: Current Medications Acetaminophen (Tylenol 650 Mg Supp) 650 mg RC Q6H PRN PRN Reason: Fever >100.4 F Acetylcysteine (Acetylcysteine 20%) 4 ml IH [id number] PRN PRN Reason: Cough and congestion Last Admin: 08/08/17 01:42 Dose: 4 ml Amlodipine Besylate (Norvasc) 10 mg PO DAILY [facility] Last Admin: 08/11/17 09:11 Dose: 10 mg Aspirin (Ecotrin) 81 mg PO DAILY [facility] Last Admin: 08/11/17 09:13 Dose: 81 mg Atorvastatin Calcium (Lipitor) 40 mg PO DIN [facility] Last Admin: 08/11/17 17:32 Dose: 40 mg Donepezil HCl (Aricept) 5 mg PO HS [facility] Last Admin: 08/11/17 21:32 Dose: 5 mg Enoxaparin Sodium (Lovenox) 40 mg SC DAILY [facility] PRN Reason: Protocol Last Admin: 08/11/17 09:10 Dose: 40 mg Hydralazine HCl (Apresoline) 10 mg PO QID PRN PRN Reason: for sbp>170 Meropenem/Sodium Chloride (Meropenem 1g/Ns 100ml Ivpb) 1 gm in 100 mls @ 100 mls/hr IVPB Q12 RYLIE PRN Reason: Protocol Last Admin: 08/11/17 21:32 Dose: 100 mls/hr Metronidazole (Flagyl) 500 mg in 100 mls @ 100 mls/hr IVPB Q8 RYLIE PRN Reason: Protocol Last Admin: 08/11/17 21:32 Dose: 100 mls/hr Dextrose/Sodium Chloride (Dextrose 5%/0.45% Ns 1000 Ml) 1,000 mls @ 70 mls/hr IV .[id number] [facility] Last Admin: 08/11/17 14:16 Dose: 70 mls/hr Levalbuterol HCl (Xopenex) 0.63 mg IH [id number] PRN PRN Reason: Shortness of Breath Last Admin: 08/08/17 01:42 Dose: 0.63 mg Metoprolol Tartrate (Lopressor) 25 mg PO BID [facility] Last Admin: 08/11/17 17:32 Dose: 25 mg Morphine Sulfate (Morphine) 1 mg IVP Q6H PRN PRN Reason: Pain, severe (8-10) Last Admin: 08/08/17 21:09 Dose: 1 mg Ondansetron HCl (Zofran Inj) 4 mg IVP Q4H PRN PRN Reason: Nausea/Vomiting Pantoprazole Sodium (Protonix Susp) 40 mg PO ACB [facility] Last Admin: 08/11/17 08:30 Dose: 40 mg Saliva Substitute (Saliva Substitute) 10 ml PO Q4H PRN PRN Reason: Xerostomia Stop: 08/13/17 23:59 - Labs Labs: 08/11/17 06:30 08/11/17 06:30 PT 12.3 SECONDS (9.4-12.5) 08/09/17 06:20 INR 1.07 (0.93-1.08) 08/09/17 06:20 APTT 32.2 Seconds (25.1-36.5) 08/04/17 20:57 Attending/Attestation - Attestation I have personally seen and examined this patient.: Yes I have fully participated in the care of the patient.: Yes I have reviewed all pertinent clinical information, including history, physical exam and plan: Yes Notes (Text): This is an addendum to GI progress report dictated by Sarah Andrade APN.The patient was seen and examined earlier. Medical records, lab studies, imagings were reviewed. Last 24 hours events reviewed. Agreed with the above treatment plan as outlined in Sarah Andrade APN's notes the with the addition of the following 08/11/17 22:36
--- NOTE | 2017-08-11 21:04 | CP.PCM.PN ---
Subjective - Date & Time of Evaluation Date of Evaluation: 08/11/17 Time of Evaluation: 11:50 - Subjective Subjective: Comfortable, no fevers, not in distress, less abdominal pain. Objective - Vital Signs/Intake and Output Vital Signs (last 24 hours): Temp Pulse Resp BP Pulse Ox 98.1 F 81 19 158/85 H 96 08/09/17 07:30 08/09/17 10:00 08/09/17 07:30 08/09/17 10:00 08/09/17 07:30 Intake and Output: 08/09/17 08/09/17 06:59 18:59 Intake Total 550 0 Output Total 20 1550 Balance 530 -1550 - Medications Medications: Current Medications Acetaminophen (Tylenol 650 Mg Supp) 650 mg RC Q6H PRN PRN Reason: Fever >100.4 F Acetylcysteine (Acetylcysteine 20%) 4 ml IH [id number] PRN PRN Reason: Cough and congestion Last Admin: 08/08/17 01:42 Dose: 4 ml Atorvastatin Calcium (Lipitor) 40 mg PO DIN [facility] Last Admin: 08/08/17 18:24 Dose: 40 mg Donepezil HCl (Aricept) 5 mg PO HS [facility] Last Admin: 08/08/17 21:11 Dose: 5 mg Enoxaparin Sodium (Lovenox) 40 mg SC DAILY [facility] PRN Reason: Protocol Last Admin: 08/09/17 08:59 Dose: 40 mg Meropenem/Sodium Chloride (Meropenem 1g/Ns 100ml Ivpb) 1 gm in 100 mls @ 100 mls/hr IVPB Q12 RYLIE PRN Reason: Protocol Last Admin: 08/09/17 09:01 Dose: 100 mls/hr Vancomycin HCl (Vancomycin 1gm) 1 gm in 250 mls @ 167 mls/hr IVPB Q12 RYLIE PRN Reason: Protocol Last Admin: 08/09/17 09:01 Dose: 167 mls/hr Sodium Chloride (Sodium Chloride 0.9%) 1,000 mls @ 60 mls/hr IV .[id number] [facility] Last Admin: 08/09/17 06:40 Dose: 60 mls/hr Metronidazole (Flagyl) 500 mg in 100 mls @ 100 mls/hr IVPB Q8 RYLIE PRN Reason: Protocol Levalbuterol HCl (Xopenex) 0.63 mg IH [id number] PRN PRN Reason: Shortness of Breath Last Admin: 08/08/17 01:42 Dose: 0.63 mg Morphine Sulfate (Morphine) 1 mg IVP Q6H PRN PRN Reason: Pain, severe (8-10) Last Admin: 08/08/17 21:09 Dose: 1 mg Ondansetron HCl (Zofran Inj) 4 mg IVP Q4H PRN PRN Reason: Nausea/Vomiting Pantoprazole Sodium (Protonix Susp) 40 mg PO ACB R[facility] Last Admin: 08/09/17 09:01 Dose: 40 mg Saliva Substitute (Saliva Substitute) 10 ml PO Q4H PRN PRN Reason: Xerostomia Stop: 08/13/17 23:59 - Labs Labs: 08/09/17 06:20 08/09/17 06:20 PT 12.3 SECONDS (9.4-12.5) 08/09/17 06:20 INR 1.07 (0.93-1.08) 08/09/17 06:20 APTT 32.2 Seconds (25.1-36.5) 08/04/17 20:57 - Constitutional Appears: Chronically Ill - Head Exam Head Exam: NORMAL INSPECTION - Neck Exam Neck Exam: absent: Meningismus - Respiratory Exam Respiratory Exam: Decreased Breath Sounds - Cardiovascular Exam Cardiovascular Exam: +S1, +S2 - GI/Abdominal Exam GI & Abdominal Exam: Soft, Tenderness (RLQ, less tenderness). absent: Distended , Guarding, Rigid, Rebound Assessment and Plan - Assessment and Plan (Free Text) Plan: Assessment consider severe sepsis S/P acute renal failure due to intra-abdominal infection with ascending colitisin this patient who developed right sided pneumohydrothorax S/P right sided chest tube placement R/O ischemic colitis history of severe sepsis with acute renal failure due to HCAP TIA COPD dementia HTN osteoarthritis chronic CHF cataracts Plan continue Merrem day 7; blood cx are negative; urine cx showing Klebsiella - would recommend at least 10-14 days of antibiotics follow up further GI recommendations
--- NOTE | 2017-08-11 23:13 | PN ---
DATE: 08/11/2017 PULMONARY PROGRESS NOTE REFERRING PHYSICIAN: Cody Aguilar MD. SUBJECTIVE: He is lying in the bed, head at 45 degrees. Fully awake and alert. Does follow simple command. Still having a right-sided chest tube on suction. There is no air leak. There is not much cough. No vomiting. No hematuria. No diarrhea. No leg swelling reported. OBJECTIVE: GENERAL: In no acute distress. VITAL SIGNS: Temperature is 98, heart rate is 60, respiratory rate is 18, blood pressure 142/61, pulse ox 99% on 2 liter nasal cannula. HEENT: Moist mucous membrane. Crowded airway. NECK: Supple. No JVD. LUNGS: Have a fair airflow with rhonchi. HEART: S1 and S2. ABDOMEN: Soft, nontender. No organomegaly. EXTREMITIES: There is no edema. NEUROLOGIC: Awake, alert. Follows simple command. CHEST: He has a right-sided chest tube. There is no air leak. MEDICATIONS: He is on Mucomyst 20% inhaled q. 6 hours p.r.n., hydralazine 10 mg q.i.d. p.r.n., Aricept 5 mg at bedtime, IV fluid half normal saline 70 mL/hour, Ecotrin 81 mg daily, Flagyl 500 mg q. 8 hours, Lipitor 40 mg daily, metoprolol tartrate 25 mg twice a day, Lovenox 40 mg subcu daily, meropenem 1 g IV q. 12 hours, morphine sulfate 1 mg q. 6 hours p.r.n., Norvasc 10 mg daily, Protonix 40 mg daily, artificial saliva 10 mL q. 4 hours p.r.n., Tylenol p.r.n., vancomycin 1 g IV q. 12 hours, Xopenex inhaled q. 6 hours, Zofran p.r.n. basis. LABORATORY DATA: Shows hemoglobin 11.5, hematocrit 34.0, WBC 11.9, platelet count is 206. Sodium 142, potassium 3.4, chloride 108, bicarbonate 24, BUN 16, creatinine 0.7, glucose is 103, calcium is 8.4, AST 53, ALT 54, alk phos is 69, albumin is 2.8. Microbiology: Pleural fluid, so far, there is no growth. Urine had E. Coli. Chest x-ray, done today, still has small apical pneumothorax. IMPRESSION AND PLAN: Chronic obstructive lung disease; healthcare-associated pneumonia; status post hydropneumothorax requiring chest tube, still has small apical pneumothorax, there is no air leak noted though; history of cerebrovascular accident; dementia; oropharyngeal dysphagia, has a gastrostomy tube; history of colitis. Pulmonary point of view, he is doing well. Spoke to the nursing staff. The patient's chest tube is taken off the suction, we will watch closely. Chest x-ray any shortness of breath. If no change in pneumothorax, consider discontinuing chest tube tomorrow and followup x-ray. Continue bronchodilator. Gastric prophylaxis, deep vein thrombosis prophylaxis. Aspiration precaution. Thank you and we will follow with you. Dl Lynch MD
[2017-08-12] MEDS: Acetylcysteine 20% Inhal Soln (4ml) IH PRN (03:52)
[2017-08-12] MEDS: Levalbuterol 0.63 MG/3 ML Inhal Soln UD IH PRN (03:52)
[2017-08-12] MEDS: Dextrose 5%/0.45% NS 1,000 ML IV SCH (05:08)
[2017-08-12] MEDS: metroNIDAZOLE IV 500 mg/100 ml 500 MG/100 ML BAG IVPB SCH (05:18)
[2017-08-12] MEDS ORDERED: MethylPREDNISolone Depo 40 mg/ml Inj IM ONE (07:17)
[2017-08-12] MEDS ORDERED: Bupivacaine 0.5% Inj(30mL) IJ ONE (07:17)
[2017-08-12 07:39] VITALS: BP 118/56; PULSE 51; RESP 19; TEMP 97.4; O2SAT 100
[2017-08-12] MEDS: Pantoprazole 40 mg Susp UD PO SCH (08:00)
--- NOTE | 2017-08-12 08:49 | CON ---
DATE: 08/12/2017 ORTHOPEDIC CONSULT HISTORY OF PRESENT ILLNESS: He is 87-year-old. I was asked to see him for left shoulder pain and he has restricted range of motion of his left shoulder. Some subacromial discomfort. Unable to abduct it past 60 degrees. Rotation is restricted because of tightness of the shoulder. I am going to order an x-ray and decide whether he needs a cortisol injection or not. I will get the family involved by calling them and see if there is anything I could do for him as he does not speak [place], but right now I have to say he has bursitis of left shoulder with pain and plan is to x-ray him and inject with Depo-Medrol and Marcaine if he needs. Kirk Garcia DO
[2017-08-12] MEDS: Enoxaparin 40 mg Syringe SC SCH (11:04)
[2017-08-12] MEDS: Meropenem 1g/NS 100mL IVPB 1 GM/100 ML PIGGYBACK IVPB SCH (11:04)
--- NOTE | 2017-08-12 13:33 | CP.PCM.PN ---
Subjective - Date & Time of Evaluation Date of Evaluation: 08/12/17 Time of Evaluation: 12:15 - Subjective Subjective: Comfortable, less pain in the abdomen, no fevers, not in distress. Objective - Vital Signs/Intake and Output Vital Signs (last 24 hours): Temp Pulse Resp BP Pulse Ox 97.4 F L 51 L 19 118/56 L 100 08/12/17 07:30 08/12/17 07:30 08/12/17 07:30 08/12/17 07:30 08/12/17 07:30 Intake and Output: 08/12/17 08/12/17 06:59 18:59 Output Total 450 Balance -450 - Labs Labs: 08/11/17 06:30 08/11/17 06:30 PT 12.3 SECONDS (9.4-12.5) 08/09/17 06:20 INR 1.07 (0.93-1.08) 08/09/17 06:20 APTT 32.2 Seconds (25.1-36.5) 08/04/17 20:57 - Constitutional Appears: Chronically Ill - Head Exam Head Exam: NORMAL INSPECTION - ENT Exam ENT Exam: Mucous Membranes Moist - Respiratory Exam Respiratory Exam: Decreased Breath Sounds - Cardiovascular Exam Cardiovascular Exam: +S1, +S2 - GI/Abdominal Exam GI & Abdominal Exam: Soft, Tenderness. absent: Distended, Firm, Guarding, Rigid , Rebound Additional comments: mild, RLQ Assessment and Plan - Assessment and Plan (Free Text) Plan: Assessment consider severe sepsis S/P acute renal failure due to intra-abdominal infection with ascending colitis in this patient who developed right sided pneumohydrothorax S/P right sided chest tube placement R/O ischemic colitis history of severe sepsis with acute renal failure due to HCAP TIA COPD dementia HTN osteoarthritis chronic CHF cataracts Plan continue Merrem day 8; blood cx are negative; urine cx showing Klebsiella - would recommend at least 10-14 days of antibiotics and follow up further GI recommendations
--- NOTE | 2017-08-13 05:54 | PROCN ---
DATE: The patient was seen for left shoulder pain. I had ordered x-rays of the shoulder; I could see the chest x-ray of the left showing elevated left humerus with signs of subacromial impingement and bursitis. So I took the opportunity to inject his left shoulder with Depo-Medrol and Xylocaine for relief, because he is going to be going to a subacute rehab today, but I will still try to get the x-ray of the shoulders to complete the survey. So the procedure was cleaning the left shoulder with alcohol swabs and injecting subacromial injection with 10 mL of Xylocaine and Marcaine and Depo-Medrol. Hopefully, this will help his pain so that he can do his therapy better at the rehab hospital. FINAL DIAGNOSES: Subacromial impingement and bursitis, and left shoulder pain. Kirk Garcia DO
--- NOTE | 2017-08-14 13:08 | PN ---
DATE: SUBJECTIVE: This is an 87-year-old male who came into the hospital, lying on the bed comfortably, chest tube connected to device for hydropneumothorax. The patient is stable, comfortable, in no distress. PHYSICAL EXAMINATION VITAL SIGNS: On 08/11/2017, temperature 97.5, heart rate 62, blood pressure 149/62, respirations 18, saturation 97% on room air. HEAD AND NECK: Normal. No JVD, no thyromegaly. CHEST: Clear, good air entry. CARDIAC: First sound and second sound normal. Please see progress note for date 08/11/2017. ABDOMEN: Soft, nontender. There is a PEG tube site, which is clean. EXTREMITIES: edema. NEUROLOGIC: He is awake and alert. LABORATORY DATA: White count 11.9, hemoglobin 11.5, hematocrit 34, platelets 206,000. Chemistry: Sodium 142, potassium 3.4, chloride 108, bicarbonate 24, BUN 16, creatinine 0.7. Liver function test is normal. IMPRESSION 1. Status post hydropneumothorax, chest tube placement, resolved. 2. Ischemic colitis, right-sided colon. CT scan done by GI, recommend to resume feeding. The patient is currently on D5W, we will start feeding. 3. Hypertension, stable. 4. Cerebrovascular accident with dysphagia, for which percutaneous endoscopic gastrostomy tube feeding is recommended. 5. Dementia. PLAN: To continue current therapy, waiting for discharge tomorrow. Cody Aguilar MD
--- NOTE | 2017-08-15 00:44 | DS ---
HISTORY OF PRESENT ILLNESS: The patient was initially admitted on 08/04/2017, admitted with fever and change in mental status. During evaluation, the patient had IV access, developed pneumothorax. Next day, chest tube was placed in. The patient was still treated on IV antibiotics, seen by ID consult, Pulmonary consult, who has stayed in the unit for two days and seen by Surgical consult team, for which a chest tube was put in. The patient was also seen by GI consult because of his abdominal tenderness, which is consistent with ischemic colitis. He was kept n.p.o. for a few days and restarted feeding and tolerated well. The patient's chest tube was still maintained to the right side of the chest and the patient was discharged to LTAC, and he seems in stable condition. PHYSICAL EXAMINATION: VITAL SIGNS: His physical examination on discharge date, 08/12/2017, temperature is 97.4, heart rate 51, blood pressure 118/56, respirations 19, saturation 100%. HEAD AND NECK: No JVD, no thyromegaly. CHEST: Clear bilaterally. Chest tube connected to the right side, to the water shield. CARDIAC: First sound and second sounds are normal. ABDOMEN: Soft, nontender. The PEG tube site is clean. EXTREMITIES: No edema. NEUROLOGIC: The patient moves extremities, but generally weak and he is awake and alert. DISCHARGE DIAGNOSES: 1. Ischemic colitis. 2. Fever, possible pneumonia, resolving. 3. Hydropneumothorax. 4. Chronic obstructive pulmonary disease. 5. Hypertension. 6. History of cerebrovascular accident. 7. Percutaneous endoscopic gastrostomy tube placement. 8. Dementia. PLAN: Discharge the patient to LTAC. We will manage the chest tube extraction over there, and we will continue current therapy for now. Cody Aguilar MD
== END 2017-08-12 12:57 | DRG 871 ==
LOC: ED 17:43 → ERH 21:31 → 5RSO 23:50 → ICU 08-05 20:04 → 5RNO 08-08 22:59
PROVIDERS: ADMIT Internal Medicine; ATTEND Internal Medicine
PROC: 3E03329 Introduction of Other Anti-infective into Peripheral Vein, Percutaneous Approach (ICD-10-PCS; 2017-08-05)
PROC: 0W9930Z Drainage of Right Pleural Cavity with Drainage Device, Percutaneous Approach (ICD-10-PCS; principal; 2017-08-06)
PROC: 3E0U33Z Introduction of Anti-inflammatory into Joints, Percutaneous Approach (ICD-10-PCS; 2017-08-12)
PROC: 3E0U3BZ Introduction of Anesthetic Agent into Joints, Percutaneous Approach (ICD-10-PCS; 2017-08-12)
DX: A41.9 Sepsis, unspecified organism (principal); J18.9 Pneumonia, unspecified organism; K55.9 Vascular disorder of intestine, unspecified; I13.0 Hypertensive heart and chronic kidney disease with heart failure and stage 1 through stage 4 chronic kidney disease, or unspecified chronic kidney disease; J44.0 Chronic obstructive pulmonary disease with (acute) lower respiratory infection; I50.9 Heart failure, unspecified; R13.10 Dysphagia, unspecified; J95.811 Postprocedural pneumothorax; J95.71 Accidental puncture and laceration of a respiratory system organ or structure during a respiratory system procedure; N39.0 Urinary tract infection, site not specified; D64.9 Anemia, unspecified; E86.0 Dehydration; E78.00 Pure hypercholesterolemia, unspecified; F03.90 Unspecified dementia, unspecified severity, without behavioral disturbance, psychotic disturbance, mood disturbance, and anxiety; H26.9 Unspecified cataract; K37 Unspecified appendicitis; K75.9 Inflammatory liver disease, unspecified; M19.90 Unspecified osteoarthritis, unspecified site; N18.9 Chronic kidney disease, unspecified; N40.0 Benign prostatic hyperplasia without lower urinary tract symptoms; Y95 Nosocomial condition; R65.20 Severe sepsis without septic shock; Z86.73 Personal history of transient ischemic attack (TIA), and cerebral infarction without residual deficits; Z87.01 Personal history of pneumonia (recurrent); Z87.891 Personal history of nicotine dependence; Z93.1 Gastrostomy status; M75.52 Bursitis of left shoulder; M25.812 Other specified joint disorders, left shoulder; R40.2414 Glasgow coma scale score 13-15, 24 hours or more after hospital admission; B96.20 Unspecified Escherichia coli [E. coli] as the cause of diseases classified elsewhere

== ENCOUNTER 2017-11-16 16:22 | Inpatient (IN) | payer MEDICARE, MEDICAID ==
[2017-11-16 16:51] VITALS: BMI 23.3
[2017-11-16] MEDS ORDERED: Piperacillin/Tazobact 3.375 gm 100 ML IVPB STA (17:33)
[2017-11-16] MEDS ORDERED: Vancomycin 1gm in NS 250ml 1 GM/250 ML BAG IVPB STA (17:33)
[2017-11-16 18:19] LABS: BASO # 0.03 K/mm3 (0.0-2.0); BASO % 0.1 % (0.0-3.0); EOS % 0.1 % (1.5-5.0); GRAN # 32.36 (1.4-6.5); GRAN % 89.8 % (50.0-68.0); HEMOGLOBIN 8.3 g/dL (14.0-18.0); LYMPH # 2.1 (1.2-3.4); LYMPH % 5.8 % (22.0-35.0); MEAN CELL VOLUME 73.8 fl (80.0-105.0); MEAN CORPUSCULAR HEMOGLOBIN 22.9 pg (25.0-35.0); MEAN PLATELET VOLUME 9.8 fl (7.0-11.0); MONO # 1.5 (0.1-0.6); MONO % 4.2 % (1.0-6.0); RBC 3.63 10^6/uL (3.5-6.1); RED CELL DISTRIBUTION WIDTH 19.9 % (11.5-14.5)
[2017-11-16 18:22] LABS: VENOUS BLOOD GAS BASE EXCESS 3.8 mmol/L (0.0-2.0); VENOUS BLOOD GAS PO2 69 mm/Hg (30-55); VENOUS BLOOD PH 7.41 (7.32-7.43)
--- NOTE | 2017-11-16 18:24 | ED PDOC ---
"Arrival/HPI - General Historian: Patient - History of Present Illness Time/Duration: > week Symptom Onset: Gradual Symptom Course: Worsening Severity Level: Mild - General Chief Complaint: Abnormal Skin Integrity Time Seen by Provider: 11/16/17 16:54 - History of Present Illness Narrative History of Present Illness (Text): 11/16/17 18:21 87-year-old male presents today sent in by his primary care physician for evaluation of worsening sacral wound with fevers at home. Per family patient has been on antibiotics for the past 3 days. Family states 2 weeks ago the wound was very small approximately the size of a dime and over the past 2 weeks the wound has enlarged in size to approximately the size of a softball. Family states the patient has been more lethargic lately. Family states the patient has been feeling warm so they have been giving Tylenol. Patient is complaining of pain to the back as well as the left heel for which the family states there is a small ulcer on the posterior aspect of the heel. (Erma Li) Past Medical History - Provider Review Nursing Documentation Reviewed: Yes - Travel History Have you recently traveled outside [place] w/in the past 3 mons?: No - Past History Past History: Non-Contributing - Infectious Disease Hx of Infectious Diseases: None - Tetanus Immunization Tetanus Immunization: Unknown - Cardiac Hx Hypertension: Yes - Pulmonary Hx Chronic Obstructive Pulmonary Disease (COPD): Yes - Neurological HX Cerebrovascular Accident: Yes (TIA) Hx Dementia: Yes - HEENT Hx HEENT Disorder: Yes (WEARS RX GLASSES) Hx Cataracts: Yes - Renal Hx Renal Disorder: Yes - Endocrine/Metabolic Hx Endocrine Disorders: No - Hematological/Oncological Hx Blood Disorders: No - Integumentary Hx Dermatological Disorder: Yes (MULTIPLE ROUND OLD AGE SPOTS TO FACE,ARMS) - Musculoskeletal/Rheumatological Hx Arthritis: Yes - Gastrointestinal Other/Comment: +peg tube on LLQ - Genitourinary/Gynecological Hx Genitourinary Disorders: Yes - Psychiatric Hx Psychophysiologic Disorder: No Hx Substance Use: No - Past Surgical History Past Surgical History: No Previous - Surgical History Other/Comment: peg tube - Anesthesia Hx Anesthesia: Yes Hx Anesthesia Reactions: No Hx Malignant Hyperthermia: No - Suicidal Assessment Feels Threatened In Home Enviroment: No Family/Social History - Physician Review Nursing Documentation Reviewed: Yes Family/Social History: Unknown Family HX Smoking Status: Unknown If Ever Smoked Hx Alcohol Use: Yes (OCCASIONAL WINE H/O) Hx Substance Use: No Hx Substance Use Treatment: No Allergies/Home Meds Allergies/Adverse Reactions: Allergies No Known Allergies Allergy (Verified 06/08/17 07:28) Home Medications: Home Meds Medication Instructions Recorded Confirmed Aspirin [Ecotrin] 1 tab PEG DAILY 11/16/17 11/16/17 Atorvastatin [Lipitor] 40 mg PEG DIN 11/16/17 11/16/17 Donepezil [Aricept] 5 mg PEG HS 11/16/17 11/16/17 Losartan [Cozaar] 1 tab PEG DAILY 11/16/17 11/16/17 Pantoprazole [Protonix EC Tab] 40 mg PEG ACB 11/16/17 11/16/17 Vitamin B Complex/Folic Acid [Ra 1 tab PEG DAILY 11/16/17 11/16/17 Balanced B-100 Tablet] hydrALAZINE [Apresoline] 10 mg PEG QID PRN 11/16/17 11/16/17 Review of Systems - Review of Systems Constitutional: Fevers Respiratory: absent: Cough Cardiovascular: absent: Chest Pain Gastrointestinal: absent: Abdominal Pain Musculoskeletal: Back Pain Skin: Skin Lesions Physical Exam Vital Signs Reviewed: Yes Temperature: Afebrile Blood Pressure: Hypotensive Pulse: Regular Respiratory Rate: Normal Appearance: Positive for: Well-Appearing, Non-Toxic, Comfortable Pain Distress: None Mental Status: Positive for: Alert and Oriented X 3 - Systems Exam Head: Present: Atraumatic Mouth: Present: Moist Mucous Membranes Neck: Present: Normal Range of Motion Respiratory/Chest: Present: Clear to Auscultation Cardiovascular: Present: Regular Rate and Rhythm Abdomen: No: Tenderness, Distention, Rebound, Guarding Rectal: No: Occult Blood, Rectal Tenderness, Gross Blood, Melena, Hemorrhoids, Fissures Back: Present: Decubitus Ulcer (large softball sized ulcer with necrotic tissue and surrounding erythema. ) Upper Extremity: Present: Normal Inspection, Other Lower Extremity: Present: Other (+ ulcer to left posterior heel) Skin: Present: Warm, Dry Psychiatric: Present: Alert Vital Signs Temp Pulse Resp BP Pulse Ox 11/17/17 00:41 107 H 16 141/60 99 11/16/17 22:41 109 H 16 120/61 94 L 11/16/17 21:58 98.3 F 108 H 16 141/64 94 L 11/16/17 21:30 111 H 16 153/75 H 94 L 11/16/17 20:35 98.3 F 11/16/17 20:06 99.5 F 11/16/17 19:24 100 H 20 120/57 L 98 11/16/17 17:51 99.2 F 89 20 99/46 L 92 L Medical Decision Making ED Course and Treatment: 11/16/17 18:25 87yr old male with sacral wound infection sent in by dr. martin for admission and surgical evaluation. pt with 99.2 rectal temp. BP 99/[address] martin; will admit to his service with dr. low consult will consult podiatry for left heel ulcer. pt seen and evaluated by dr. sebastian. pt started on vancomycin and zosyn IV. cbc 36 cmp: elevated lfts Patient with white blood cell count of 36,000, Code sepsis called. 30mg/kg ordered; 500 bolus, then 100cc/hr as patient with CHF. case was discussed with dr. alejandre medical surgical tech who saw patient at beside for sacral ulcer. pt/ INR: 1.29 ptt blood cultures pending UA: Urine cultures ct abd/pelvis; FINDINGS: LIMITATIONS: Streak artifact from the patient's arms. Mild streak/motion artifact. LUNG BASES: No significant abnormality seen. CASSIUS RICCARDOMARIXA | Final Radiology Report Page 2 of 3 ABDOMEN: LIVER: 2 low density liver lesions, most likely representing cysts. The larger of these measures 2.2 cm. GALLBLADDER AND BILE DUCTS: Cholelithiasis. Large gallstones seen. No CT evidence of acute cholecystitis. PANCREAS: No CT evidence of acute pancreatitis. SPLEEN: No acute abnormality of the spleen identified. ADRENALS: No acute abnormality of the adrenal glands identified. KIDNEYS AND URETERS: Low density lesions in the kidneys bilaterally, most likely representing cysts. The largest of these measures 1 cm. STOMACH AND BOWEL: Percutaneous gastrostomy in place. This does not appear malpositioned. No acute abnormality of the stomach, small bowel or colon identified. No evidence of bowel obstruction. PELVIS: APPENDIX: Appendix is seen, and is within normal limits in appearance. BLADDER: No acute abnormality of the bladder identified. REPRODUCTIVE: Enlarged prostate gland, which indents the base of the bladder. ABDOMEN and PELVIS: INTRAPERITONEAL SPACE: No evidence of free air or free fluid. BONES/JOINTS: Findings compatible with a chronic vertebral compression fracture of L1.Bony structures appear demineralized. SOFT TISSUES: Multiple foci of soft tissue air, located in the soft tissues overlying the coccyx, the left gluteal soft tissues inferiorly, and also in the deep soft tissues of the right ischiorectal fossa. The air overlying the coccyx extends to the level of the bone. The air in the right ischiorectal fossa abuts the distal rectum. This is associated with fat stranding and subcutaneous edema , greatest in the left gluteal soft tissues suspicious for cellulitis. No evidence of focal soft tissue fluid collection/abscess. VASCULATURE: Best seen on images [id number] of series 3, there are low density areas in the right common femoral vein and the left femoral vein, suspicious for thrombus/clot, secondary to bilateral deep venous thrombosis. The thrombus appears partially occlusive, a finding which can be seen with chronic/resultant clot. 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 Mild aneurysmal dilatation of the right common iliac artery, which measures 2.1 cm maximally. LYMPH NODES: No evidence of diffuse lymphadenopathy. IMPRESSION: - Air in the left gluteal soft tissues and the right ischiorectal fossa. There are also findings suspicious for left gluteal cellulitis. Cannot exclude a necrotizing soft tissue infection. - Air overlying the coccyx, which could be related to the patient's known wound. The air extends to the level of the bone. A stage IV decubitus ulcer could have this appearance. - Findings suspicious for deep venous thrombosis involving the bilateral femoral veins, as described. The thrombus appears partially occlusive, a finding which can be seen with chronic, resolving clot. Lower extremity venous ultrasound is recommended for further evaluation, unless otherwise clinically indicated. - See above for multiple remaining non-emergent findings Patient was seen and evaluated by Dr. Alejandre the medical surgical tech at bedside. She discussed the case in depth with Dr. Low. She advised Dr. Low of CAT scan findings of necrotizing fasciitis. She states they will take the patient to surgery. Case was discussed in depth with Dr. Low; I advised Dr. Low of the CAT scan findings concerning for necrotizing fasciitis. He states he is aware of the CAT scan findings. I've advised him that the patient has been tachycardic ranging from 110- 120B/M. I advised him of concern for b/l femoral dvts; he advised that heparin can be started and will be stopped prior to surgery. heparin drip started. case was discussed with dr. Zia Turner (intensivitist); who saw patient at bedside ; she will downgrade patient to telemetry. all aspects of this case were discussed the attending of record. impression; sacral ulcer, DVT, necrotizing fascitis. admit (Erma Li) - Lab Interpretations Microbiology Results: Microbiology Results 11/16/17 20:19 Sacral Gram Stain - Final 11/16/17 20:19 Sacral Wound Culture - Final Klebsiella Pneumoniae Ssp Pneu Staphylococcus Aureus Enterobacter Cloacae Ssp Cloac 11/16/17 18:35 Blood Blood Culture - Preliminary NO GROWTH AFTER 3 DAYS 11/16/17 18:05 Blood Blood Culture - Preliminary NO GROWTH AFTER 3 DAYS 11/16/17 20:19 Foot - Left Gram Stain - Final 11/16/17 20:19 Foot - Left Wound Culture - Preliminary Klebsiella Pneumoniae Ssp Pneu Gram Positive Cocci 11/16/17 20:27 Urine Urine Culture - Final Yeast Species Lab Results: 11/16/17 18:05 11/16/17 18:05 Lab Results 11/16/17 20:45: Urine Color Yellow, Urine Appearance Clear, Urine pH 6.5, Ur Specific [place] 1.010, Urine Protein 30 H, Urine Glucose (UA) Negative, Urine Ketones Negative, Urine Blood Negative, Urine Nitrate Negative, Urine Bilirubin Negative, Urine Urobilinogen 0.2, Ur Leukocyte Esterase Moderate H, Urine RBC 1 - 3, Urine WBC 10 - 15, Ur Epithelial Cells Many 11/16/17 18:18: Blood Type B POSITIVE, Antibody Screen Negative, Crossmatch See Detail, BBK History Checked Patient has bt 11/16/17 18:05: Phosphorus 3.7, Magnesium 2.8 H 11/16/17 18:05: Sodium 143, Chloride 105, Potassium 4.7, Carbon Dioxide 27, Anion Gap 15, BUN 55 H, Creatinine 1.0, Est GFR ( Amer) > 60, Est GFR ( Non-Af Amer) > 60, Random Glucose 136 H, Calcium 7.9 L, Total Bilirubin 0.4, AST 147 H D, ALT 93 H, Alkaline Phosphatase 165 H D, Total Protein 6.7, Albumin 3.0, Globulin 3.6, Albumin/Globulin Ratio 0.8 L 11/16/17 18:05: pO2 69 H, VBG pH 7.41, VBG pCO2 46.0, VBG HCO3 29.2 H, VBG Total CO2 30.6 H, VBG O2 Sat (Calc) 97.2 H, VBG Base Excess 3.8 H, VBG Potassium 4.9, Sodium 140.0, Chloride 108.0 H, Glucose 142 H, Lactate 2.4 H, FiO2 21.0, Venous Blood Potassium 4.9 11/16/17 18:05: WBC 36.0 H* D, RBC 3.63, Hgb 8.3 L D, Hct 26.8 L, MCV 73.8 L D, MCH 22.9 L, MCHC 31.0, RDW 19.9 H, Plt Count 467 H, MPV 9.8, Gran % 89.8 H, Lymph % (Auto) 5.8 L, [place] % (Auto) 4.2, Eos % (Auto) 0.1 L, Baso % (Auto) 0.1, Gran # 32.36 H, Lymph # (Auto) 2.1, [place] # (Auto) 1.5 H, Eos # (Auto) 0.0, Baso # (Auto) 0.03 11/16/17 18:05: PT 14.8 H, INR 1.29 H, APTT 30.6 - RAD Interpretation Radiology Orders: 11/16/17 17:31 ABD & PELVIS IV CONTRAST ONLY [CT] Stat 11/16/17 18:04 CHEST PORTABLE [RAD] Stat - Medication Orders Current Medication Orders: Acetaminophen (Tylenol 650mg/20.3ml Solution Ud) 650 mg PEG Q6H PRN PRN Reason: Pain, Mild (1-3) Aspirin (Ecotrin) 81 mg PO DAILY [facility] Last Admin: 11/20/17 10:10 Dose: 81 mg Collagenase (Santyl) 1 gm TOP BID [facility] Last Admin: 11/20/17 10:13 Dose: 1 applic Donepezil HCl (Aricept) 5 mg PEG HS [facility] Last Admin: 11/19/17 21:34 Dose: 5 mg Enoxaparin Sodium (Lovenox) 40 mg SC DAILY [facility] PRN Reason: Protocol Last Admin: 11/20/17 10:10 Dose: 40 mg Subcutaneous Administrations Document 11/20/17 10:10 [facility] (Rec: 11/20/17 10:10 [email or web address]) Charges for Administration # of Subcutaneous Administrations 1 Linezolid (Zyvox 600mg/300ml D5w) 600 mg in 300 mls @ 200 mls/hr IVPB Q12 RYLIE PRN Reason: Protocol Stop: 11/24/17 06:42 Last Admin: 11/20/17 10:10 Dose: 200 mls/hr eMAR Start Stop Document 11/20/17 10:10 [facility] (Rec: 11/20/17 10:10 [email or web address]) Intravenous Solution Start Date 11/20/17 Start Time 10:10 End Date 11/20/17 End time 10:10 Total Infusion Time 0 Meropenem (Merrem Iv 1 Gm Premix) 50 mls @ 100 mls/hr IVPB Q8 RYLIE PRN Reason: Protocol Stop: 11/24/17 06:46 Last Admin: 11/20/17 05:12 Dose: 100 mls/hr eMAR Start Stop Document 11/20/17 05:12 FG (Rec: 11/20/17 05:12 FG [id number]) Intravenous Solution Start Date 11/20/17 Start Time 05:12 Iron Sucrose 100 mg/ Sodium (Chloride) 105 mls @ 210 mls/hr IVPB DAILY RYLIE Stop: 11/21/17 10:01 Last Admin: 11/20/17 10:09 Dose: 210 mls/hr eMAR Start Stop Document 11/20/17 10:09 [facility] (Rec: 11/20/17 10:09 [email or web address]) Intravenous Solution Start Date 11/20/17 Start Time 10:09 End Date 11/20/17 End time 10:09 Total Infusion Time 0 Lactic Acid (Lac-Hydrin 12% Lotion (225 G)) 0 gm EXT DAILY RYLIE Last Admin: 11/20/17 10:11 Dose: 1 applic Levalbuterol HCl (Xopenex) 0.63 mg IH [id number] PRN PRN Reason: Shortness of Breath Losartan Potassium (Cozaar) 25 mg PEG DAILY RYLIE Last Admin: 11/20/17 10:09 Dose: 25 mg Morphine Sulfate (Morphine) 2 mg IVP Q4H PRN PRN Reason: Pain, severe (8-10) Last Admin: 11/18/17 23:25 Dose: 2 mg MAR Pain Assessment Document 11/18/17 23:25 [facility]SE (Rec: 11/18/17 23:26 [place] [id number]) Pain Reassessment Is this a pain reassessment? Yes Sleep Is patient sleeping during reassessment? No Presence of Pain Presence of Pain Yes Pain Scale Used Pain Scale Used Numeric Location Pain Location Body Site Sacrum Description Description Constant Intensity of Pain at present 9 IVP Administration Document 11/18/17 23:25 SSE (Rec: 11/18/17 23:26 [place] [id number]) Charges for Administration # of IVP Administrations 1 Re-Assess: NAIN Pain Assessment Document 11/19/17 00:25 SSE (Rec: 11/19/17 04:18 [place] [id number]) Pain Reassessment Is this a pain reassessment? Yes Sleep Is patient sleeping during reassessment? No Presence of Pain Presence of Pain No Pantoprazole Sodium (Protonix Inj) 40 mg IVP DAILY [facility] Last Admin: 11/20/17 10:10 Dose: 40 mg IVP Administration Document 11/20/17 10:10 [facility] (Rec: 11/20/17 10:10 [email or web address]) Charges for Administration # of IVP Administrations 1 Saliva Substitute (Saliva Substitute) 2 ml PO Q2H [facility] Last Admin: 11/20/17 10:16 Dose: 2 ml Silver Sulfadiazine (Silvadene 1% 25 Gm) 0 gm TP BID [facility] Last Admin: 11/20/17 10:11 Dose: 25 gm Sodium Hypochlorite (Dakins Solution 0.5%) 500 ml TOP DAILY [facility] Last Admin: 11/20/17 10:10 Dose: 1 applic Discontinued Medications Acetaminophen (Tylenol 325 Mg Supp) 650 mg STAT STA Stop: 11/16/17 18:45 Last Admin: 11/16/17 20:06 Dose: 650 mg MAR Pain/Vitals Document 11/16/17 20:06 [facility] (Rec: 11/16/17 20:06 [email or web address] Pain Reassessment Is This A Pain ReAssessment? No Sleep Is patient sleeping during reassessment? No Presence of Pain Presence of Pain No Vitals Temperature (97.6 F-99.6 F) 99.5 F Temperature Source Rectal Collagenase (Santyl) 0 gm TOP BID RYLIE Donepezil HCl (Aricept) 5 mg PO HS RYLIE Vancomycin HCl (Vancomycin 1gm) 1 gm in 250 mls @ 167 mls/hr IVPB STAT STA PRN Reason: Protocol Stop: 11/16/17 19:02 Last Admin: 11/16/17 20:05 Dose: 167 mls/hr eMAR Start Stop Document 11/16/17 20:05 MS (Rec: 11/16/17 20:06 [email or web address] Intravenous Solution Start Date 11/16/17 Start Time 20:06 End Date 11/16/17 End time 21:36 Total Infusion Time 90 Piperacillin Sod/Tazobactam Sod (Zosyn 3.375 In Ns 100ml) 100 mls @ 200 mls/hr IVPB STAT STA PRN Reason: Protocol Stop: 11/16/17 18:02 Last Admin: 11/16/17 18:37 Dose: 200 mls/hr eMAR Start Stop Document 11/16/17 18:37 OCS (Rec: 11/16/17 18:37 [email or web address] Intravenous Solution Start Date 11/16/17 Start Time 18:37 End Date 11/16/17 End time 19:07 Total Infusion Time 30 Lactated Ringer's 2,000 ml/ IV (SUPPLIES) 2,000 mls @ 3,810.18 mls/hr IV ONCE ONE PRN Reason: 60 ML/KG/HR Stop: 11/16/17 18:29 Last Admin: 11/16/17 20:06 Dose: 3,810.18 mls/hr eMAR Start Stop Document 11/16/17 20:06 MS (Rec: 11/16/17 20:06 [email or web address] Intravenous Solution Start Date 11/16/17 Start Time 20:06 Heparin Sodium/Sodium Chloride (Heparin 61327 Units/250ml 1/2 Normal Saline) 25 ,000 units in 250 mls @ 11.431 mls/hr IV .[id number] PRN; Protocol; 18 UNITS/KG/HR PRN Reason: ADJUST RATE PER PROTOCOL Stop: 11/17/17 02:00 Last Admin: 11/17/17 00:51 Dose: 18 units/kg/hr, 11.431 mls/hr eMAR Start Stop Document 11/17/17 00:51 MS (Rec: 11/17/17 00:51 MS [id number]) Intravenous Solution Start Date 11/17/17 Start Time 00:51 MAR aPTT Document 11/17/17 00:51 MS (Rec: 11/17/17 00:51 MS [id number]) aPTT aPTT (secs) 30.6 Titration Intervention Document 11/17/17 00:51 MS (Rec: 11/17/17 00:51 MS [id number]) Titration Intake Waste Amount 0 Container Volume 250 Titration Dosing Titration Dose 18 IV Rate 11.431 Intake/Decrease Started Piperacillin Sod/Tazobactam Sod (Zosyn 3.375 In Ns 100ml) 100 mls @ 200 mls/hr IVPB Q6 RYLIE PRN Reason: Protocol Stop: 11/17/17 06:29 Last Admin: 11/17/17 08:28 Dose: 200 mls/hr eMAR Start Stop Document 11/17/17 08:28 LYNDSEY (Rec: 11/17/17 08:28 LYNDSEY [id number]) Intravenous Solution Start Date 11/17/17 Start Time 08:28 End Date 11/17/17 End time 09:00 Total Infusion Time 32 Sodium Chloride (Sodium Chloride 0.9%) 1,000 mls @ 75 mls/hr IV .[id number] RYLIE Stop: 11/17/17 09:16 Last Admin: 11/17/17 08:29 Dose: 75 mls/hr eMAR Start Stop Document 11/17/17 08:29 LYNDSEY (Rec: 11/17/17 08:29 LYNDSEY [id number]) Intravenous Solution Start Date 11/17/17 Start Time 08:29 Heparin Sodium/Sodium Chloride (Heparin 52052 Units/250ml 1/2 Normal Saline) 25 ,000 units in 250 mls @ 11.431 mls/hr IV .[id number] PRN; Protocol; 18 UNITS/KG/HR PRN Reason: ADJUST RATE PER PROTOCOL Last Admin: 11/19/17 05:56 Dose: 14.8 units/kg/hr, 9.4 mls/hr eMAR Start Stop Document 11/19/17 05:56 SSE (Rec: 11/19/17 05:57 SSE [id number]) Intravenous Solution Start Date 11/19/17 Start Time 05:56 Titration Intervention Document 11/19/17 05:56 SSE (Rec: 11/19/17 05:57 SSE [id number]) Titration Intake Cumulative Intake (Rx) 500 Waste Amount 0 Container Volume 250 Titration Dosing Titration Dose 14.8 IV Rate 9.4 Intake/Decrease Started/Running Cumulative Dose 64576 Sodium Chloride (Sodium Chloride 0.45%) 1,000 mls @ 80 mls/hr IV .[id number] RYLIE Last Admin: 11/19/17 21:50 Dose: 80 mls/hr eMAR Start Stop Document 11/19/17 21:50 FG (Rec: 11/19/17 21:51 FG [id number]) Intravenous Solution Start Date 11/19/17 Start Time 21:51 End Date 11/19/17 Levalbuterol HCl (Xopenex) 0.63 mg IH ONCE STA Stop: 11/16/17 23:38 Last Admin: 11/17/17 00:10 Dose: 0.63 mg Morphine Sulfate (Morphine) 1 mg IVP STAT STA Stop: 11/16/17 20:50 Last Admin: 11/16/17 23:30 Dose: 1 mg MAR Pain Assessment Document 11/16/17 23:30 MS (Rec: 11/16/17 23:30 MS [email or web address] Pain Reassessment Is this a pain reassessment? No Sleep Is patient sleeping during reassessment? No Presence of Pain Presence of Pain Yes Pain Scale Used Pain Scale Used Numeric Location Pain Location Body Site Generalized Description Description Constant Pain Behavior Moaning Irritability Restlessness IVP Administration Document 11/16/17 23:30 MS (Rec: 11/16/17 23:30 MS [email or web address] Charges for Administration # of IVP Administrations 1 Silver Nitrate (Silver Nitrate Topical Stick) 3 swa TOP ONCE ONE Stop: 11/17/17 14:02 Last Admin: 11/17/17 14:13 Dose: Silver Nitrate (Silver Nitrate Topical Stick) 3 swa TOP ONCE ONE Stop: 11/18/17 06:37 Last Admin: 11/18/17 12:07 Dose: Silver Nitrate (Silver Nitrate Topical Stick) 7 swa TOP ONCE ONE Stop: 11/19/17 22:49 Last Admin: 11/20/17 05:18 Dose: 7 swa Sodium Hypochlorite (Dakins Solution 0.5%) 500 ml TOP DAILY [facility] Last Admin: 11/18/17 12:09 Dose: Sodium Hypochlorite (Dakins Solution 0.5%) 500 ml TOP DAILY [facility] Disposition/Present on Arrival - Present on Arrival Any Indicators Present on Arrival: No History of DVT/PE: No History of Uncontrolled Diabetes: No Urinary Catheter: No History of Decub. Ulcer: No History Surgical Site Infection Following: None - Disposition Have Diagnosis and Disposition been Completed?: Yes Disposition Time: 19:34 Patient Plan: Admission - Disposition Diagnosis: Leukocytosis (leucocytosis), Sepsis, Sacral ulcer, Ulcer of heel, Necrotizing fasciitis Disposition: HOSPITALIZED Patient Problems: Current Active Problems Problem Status Onset Leukocytosis (leucocytosis) Acute Necrotizing fasciitis Acute Sacral ulcer Acute Sepsis Acute Ulcer of heel Acute Condition: FAIR"
--- NOTE | 2017-11-16 18:25 | RAD ---
HISTORY: wound infection, sacral COMPARISON: 08/11/2017. FINDINGS: LUNGS: The lungs are well inflated and clear. PLEURA: No significant pleural effusion identified, no pneumothorax apparent. CARDIOVASCULAR: The heart is normal in size. Atherosclerotic aortic arch calcifications are present. OSSEOUS STRUCTURES: No significant abnormalities. VISUALIZED UPPER ABDOMEN: Normal. OTHER FINDINGS: None. IMPRESSION: No active pulmonary disease.
[2017-11-16 18:28] LABS: ALB/GLOB RATIO 0.8 (1.1-1.8); ALT/SGPT 93 U/L (7-56); AST/SGOT 147 U/L (17-59); BLOOD UREA NITROGEN 55 mg/dL (7-21); CALCIUM 7.9 mg/dL (8.4-10.5); GFR AFRICAN-AMERICAN > 60; GFR NON-AFRICAN AMERICAN > 60
[2017-11-16 18:43] LABS: INR 1.29 (0.93-1.08); PARTIAL THROMBOPLASTIN TIME 30.6 Seconds (25.1-36.5); PROTHROMBIN TIME 14.8 SECONDS (9.4-12.5)
[2017-11-16] MEDS ORDERED: Iohexol 350 MG/100 ML VIAL ONE (19:23)
[2017-11-16] MEDS ORDERED: Collagenase 250 Units/gm Ointment(30 gm) TOP SCH (19:45)
[2017-11-16 21:13] LABS: PH,URINE 6.5 (4.7-8.0); URINE BILIRUBIN NEGATIVE (NEGATIVE); URINE BLOOD NEGATIVE (NEGATIVE); URINE GLUCOSE (UA) NEGATIVE (NEGATIVE); URINE LEUKOCYTE ESTERASE MODERATE Leu/uL (NEGATIVE); URINE PROTEIN 30 mg/dL (<30 mg/dL); URINE UROBILINOGEN 0.2 E.U./dL (<1 E.U./dL)
[2017-11-16 21:30] LABS: URINE APPEARANCE CLEAR (CLEAR); URINE COLOR YELLOW (YELLOW)
--- NOTE | 2017-11-16 21:33 | CT ---
EXAM: CT Abdomen and Pelvis With Intravenous Contrast EXAM DATE/TIME: 11/16/2017 5:31 PM CLINICAL HISTORY: 87 years old, male; Signs and symptoms; Other: Sacral wound; Prior surgery; Surgery type: Peg tube TECHNIQUE: Axial computed tomography images of the abdomen and pelvis with intravenous contrast. All CT scans at this facility use one or more dose reduction techniques, viz.: automated exposure control; ma/kV adjustment per patient size (including targeted exams where dose is matched to indication; i.e. head); or iterative reconstruction technique. Coronal and sagittal reformatted images were created and reviewed. CONTRAST: 94 mL of OMNI 350 administered intravenously. COMPARISON: Prior CT abdomen and pelvis of 2017-08-08 FINDINGS: LIMITATIONS: Streak artifact from the patient's arms. Mild streak/motion artifact. LUNG BASES: No significant abnormality seen. ABDOMEN: LIVER: 2 low density liver lesions, most likely representing cysts. The larger of these measures 2.2 cm. GALLBLADDER AND BILE DUCTS: Cholelithiasis. Large gallstones seen. No CT evidence of acute cholecystitis. PANCREAS: No CT evidence of acute pancreatitis. SPLEEN: No acute abnormality of the spleen identified. ADRENALS: No acute abnormality of the adrenal glands identified. KIDNEYS AND URETERS: Low density lesions in the kidneys bilaterally, most likely representing cysts. The largest of these measures 1 cm. STOMACH AND BOWEL: Percutaneous gastrostomy in place. This does not appear malpositioned. No acute abnormality of the stomach, small bowel or colon identified. No evidence of bowel obstruction. PELVIS: APPENDIX: Appendix is seen, and is within normal limits in appearance. BLADDER: No acute abnormality of the bladder identified. REPRODUCTIVE: Enlarged prostate gland, which indents the base of the bladder. ABDOMEN and PELVIS: INTRAPERITONEAL SPACE: No evidence of free air or free fluid. BONES/JOINTS: Findings compatible with a chronic vertebral compression fracture of L1.Bony structures appear demineralized. SOFT TISSUES: Multiple foci of soft tissue air, located in the soft tissues overlying the coccyx, the left gluteal soft tissues inferiorly, and also in the deep soft tissues of the right ischiorectal fossa. The air overlying the coccyx extends to the level of the bone. The air in the right ischiorectal fossa abuts the distal rectum. This is associated with fat stranding and subcutaneous edema, greatest in the left gluteal soft tissues suspicious for cellulitis. No evidence of focal soft tissue fluid collection/abscess. VASCULATURE: Best seen on images [id number] of series 3, there are low density areas in the right common femoral vein and the left femoral vein, suspicious for thrombus/clot, secondary to bilateral deep venous thrombosis. The thrombus appears partially occlusive, a finding which can be seen with chronic/resultant clot. 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 Mild aneurysmal dilatation of the right common iliac artery, which measures 2.1 cm maximally. LYMPH NODES: No evidence of diffuse lymphadenopathy. IMPRESSION: - Air in the left gluteal soft tissues and the right ischiorectal fossa. There are also findings suspicious for left gluteal cellulitis. Cannot exclude a necrotizing soft tissue infection. - Air overlying the coccyx, which could be related to the patient's known wound. The air extends to the level of the bone. A stage IV decubitus ulcer could have this appearance. - Findings suspicious for deep venous thrombosis involving the bilateral femoral veins, as described. The thrombus appears partially occlusive, a finding which can be seen with chronic, resolving clot. Lower extremity venous ultrasound is recommended for further evaluation, unless otherwise clinically indicated. - See above for multiple remaining non-emergent findings.
[2017-11-16 21:35] LABS: URINE EPITHELIAL CELLS MANY /hpf (0-5)
[2017-11-16] MEDS ORDERED: Heparin25000 units/250ml 1/2NS 25,000 UNITS/250 ML BAG IV PRN (22:40)
--- NOTE | 2017-11-16 22:43 | CP.PCM.CON ---
History of Present Illness - History of Present Illness History of Present Illness: General Surgery consult note for Dr. Vizcaino Consulted for: sacral decubitus ulcer and left heel ulcer Patient is an 87M wiht PMH including: CHF, CVA, COPD, dementia, HTN, who presents to the ED for a worsening sacral and left heel wound. History obtained by patient's daughter at bedside. Patient's is bed ridden from residual deficits on the left after CVA, and wound started 2 weeks ago per daughter. It was very small but quickly grew. patient's stool soils the area regularly. Wounds are refractory to an outpt course of antibiotics--unknown which medication. He also has a left heel wound worsening. Patient had subjective fevers and chills and daugheter gave tylenol in the afternoon. Patient has also had a cough productive of clear mucus for several weeks and history of UTI's and PEG tube for feeds. Per daughter patient has not complained of nausea, vomiting, diarrhea, constipation, chest pain, SOB, problems urinating, or any other symptoms. patient is tolerating tube feeds well. On CT patient was found to have gas extending from the sacral wound to the left gluteal tissues and concern for necrotizing fasciitis was raised. PMH: CHF, CVA, COPD, dementia, HTN, arthritis, pneumonia, hydropneumothorax PSH: gastrostomy tube, right chest thoracoscopy ALL: NKDA Review of Systems - Review of Systems All systems: reviewed and no additional remarkable complaints except (as per HPI ) Past Patient History - Infectious Disease Hx of Infectious Diseases: None - Tetanus Immunizations Tetanus Immunization: Unknown - Past Medical History & Family History Past Medical History?: Yes Past Family History: Reviewed and not pertinent - Past Social History Smoking Status: Unknown If Ever Smoked - CARDIAC Hx Hypertension: Yes - PULMONARY Hx Chronic Obstructive Pulmonary Disease (COPD): Yes - NEUROLOGICAL HX Cerebrovascular Accident: Yes (TIA) Hx Dementia: Yes - HEENT Hx HEENT Problems: Yes (WEARS RX GLASSES) Hx Cataracts: Yes - RENAL Hx Chronic Kidney Disease: Yes - ENDOCRINE/METABOLIC Hx Endocrine Disorders: No - HEMATOLOGICAL/ONCOLOGICAL Hx Blood Disorders: No - INTEGUMENTARY Hx Dermatological Problems: Yes (MULTIPLE ROUND OLD AGE SPOTS TO FACE,ARMS) - MUSCULOSKELETAL/RHEUMATOLOGICAL Hx Arthritis: Yes - GASTROINTESTINAL Other/Comment: +peg tube on LLQ - GENITOURINARY/GYNECOLOGICAL Hx Genitourinary Disorders: Yes - PSYCHIATRIC Hx Psychophysiologic Disorder: No Hx Substance Use: No - SURGICAL HISTORY Other/Comment: peg tube - ANESTHESIA Hx Anesthesia: Yes Hx Anesthesia Reactions: No Hx Malignant Hyperthermia: No Meds Allergies/Adverse Reactions: Allergies Allergy/AdvReac Type Severity Reaction Status Date / Time No Known Allergies Allergy Verified 06/08/17 07:28 - Medications Medications: Current Medications Collagenase (Santyl) 0 gm TOP BID RYLIE Heparin Sodium/Sodium Chloride (Heparin 35946 Units/250ml 1/2 Normal Saline) 25 ,000 units in 250 mls @ 11.431 mls/hr IV .[id number] PRN; Protocol; 18 UNITS/KG/HR PRN Reason: ADJUST RATE PER PROTOCOL Physical Exam - Constitutional Appears: No Acute Distress, Chronically Ill - Head Exam Head Exam: ATRAUMATIC, NORMOCEPHALIC - Eye Exam Eye Exam: Normal appearance. absent: Conjunctival injection, Scleral icterus - ENT Exam ENT Exam: Mucous Membranes Moist, Normal Oropharynx - Respiratory Exam Respiratory Exam: NORMAL BREATHING PATTERN. absent: Accessory Muscle Use, Respiratory Distress - Cardiovascular Exam Cardiovascular Exam: Tachycardia, Irregular Rhythm - GI/Abdominal Exam GI & Abdominal Exam: Distended, Soft. absent: Tenderness Additional comments: gastrostomy tube present with no surrounding erythema or drainage - Rectal Exam Rectal Exam: NORMAL INSPECTION. absent: Bloody Stool, Hemorrhoids Additional comments: no crepitus or fluctuance - Extremities Exam Extremities exam: Negative for: calf tenderness, pedal edema, tenderness Additional comments: left heel with wound approximatey 3cm in diameter of unknown depth d/t overlying skin, no expressible drainage or fluctuance - Back Exam Back exam: absent: CVA tenderness (L), CVA tenderness (R) - Neurological Exam Neurological exam: Alert, Altered - Psychiatric Exam Psychiatric exam: Normal Affect, Normal Mood - Skin Skin Exam: Warm Additional comments: sacral decubitus wound, unstageable, no crepitus, no fluctuance, no expressible fluid, no odor No other wound besides left heel Results - Vital Signs Recent Vital Signs: Last Vital Signs Temp 98.3 F 11/16/17 21:58 Pulse 108 H 11/16/17 21:58 Resp 16 11/16/17 21:58 BP 141/64 11/16/17 21:58 Pulse Ox 94 L 11/16/17 21:58 - Labs Result Diagrams: 11/16/17 23:20 11/16/17 18:05 Assessment & Plan - Assessment and Plan (Free Text) Assessment: 87M with sacral decubitus ulcer with concern for necrotizing fasciitis into the left buttock, left heel wound Plan: OR in the AM for debridement, Patient currently hemodynamically stable aside from moderate tachycardia, labs improving during time in ER. consent obtained over the phone from daughter IVF, antibiotics, PRN pain and nasuea medication ID consult Close monitoring of vitals and intake and output air mattress, turn Q2, heel protectors, santyl for the wounds Follow up urine culture for possible UTI Follow up abdominal ultrasound for possible gallbladder and liver pathology-- hypodense lesions on liver, elevated LFT's and possible thickening of gallbladder wall Podiatry consult trend CBC, cmp Discussed at length with Dr. Carrillo Alejandre, PGY2
--- NOTE | 2017-11-16 23:17 | CP.PCM.CON ---
<HeAngelique - Last Filed: 11/17/17 00:20> History of Present Illness - History of Present Illness History of Present Illness: ICU Consult Note HPI: Patient is an 87 year old male with a past medical history of TIA, advanced dementia, CHF, HTN, COPD, osteoarthritis, who presents to the ED complaining of vomiting multiple times today, however upon re-exam with the other resident patient denied vomiting. Patient history was very limited due to dementia, and most of the history was received via ED staff. Patient was brought in by family from the PCP's office for worsening sacral ulcer, lethargy , and fevers at home. Per ED patient was on an antibiotic for the past 3 days at home but they are unsure which antibiotic. Dr. Aguilar was contacted and he was unaware as well so it is likely the family was giving his something from home. Per ED, family said the wound "started off about size of a dime and over the past 2 weeks enlarged in size to approximately the size of a softball". Patient is complaining of pain in his bilateral lower extremities as well as the left heel where he has a small ulceration. he denies abdominal pain, chest pain, dizziness, and SOB, however, as mentioned previously patient has advanced dementia and ROS unreliable. PMH: TIA, advanced dementia, CHF, HTN, COPD, osteoarthritis Meds: ASA 81 mg, Lipitor 40 mg, Donepezil 5 mg, hydralazine 10 mg QID, Losartan 50 mg QD, Protonix 40 mg QD, and Vitamin B complex Allergies: NKDA Review of Systems - Review of Systems Systems not reviewed;Unavailable: Dementia All systems: reviewed and no additional remarkable complaints except (as per HPI ) Past Patient History - Infectious Disease Hx of Infectious Diseases: None - Tetanus Immunizations Tetanus Immunization: Unknown - Past Social History Smoking Status: Unknown If Ever Smoked - CARDIAC Hx Hypertension: Yes - PULMONARY Hx Chronic Obstructive Pulmonary Disease (COPD): Yes - NEUROLOGICAL HX Cerebrovascular Accident: Yes (TIA) Hx Dementia: Yes - HEENT Hx HEENT Problems: Yes (WEARS RX GLASSES) Hx Cataracts: Yes - RENAL Hx Chronic Kidney Disease: Yes - ENDOCRINE/METABOLIC Hx Endocrine Disorders: No - HEMATOLOGICAL/ONCOLOGICAL Hx Blood Disorders: No - INTEGUMENTARY Hx Dermatological Problems: Yes (MULTIPLE ROUND OLD AGE SPOTS TO FACE,ARMS) - MUSCULOSKELETAL/RHEUMATOLOGICAL Hx Arthritis: Yes - GASTROINTESTINAL Other/Comment: +peg tube on LLQ - GENITOURINARY/GYNECOLOGICAL Hx Genitourinary Disorders: Yes - PSYCHIATRIC Hx Psychophysiologic Disorder: No Hx Substance Use: No - SURGICAL HISTORY Other/Comment: peg tube - ANESTHESIA Hx Anesthesia: Yes Hx Anesthesia Reactions: No Hx Malignant Hyperthermia: No Meds Allergies/Adverse Reactions: Allergies Allergy/AdvReac Type Severity Reaction Status Date / Time No Known Allergies Allergy Verified 06/08/17 07:28 - Medications Medications: Current Medications Collagenase (Santyl) 0 gm TOP BID RYLIE Heparin Sodium/Sodium Chloride (Heparin 14097 Units/250ml 1/2 Normal Saline) 25 ,000 units in 250 mls @ 11.431 mls/hr IV .[id number] PRN; Protocol; 18 UNITS/KG/HR PRN Reason: ADJUST RATE PER PROTOCOL Physical Exam - Constitutional Appears: No Acute Distress, Confused, Chronically Ill - Head Exam Head Exam: ATRAUMATIC, NORMAL INSPECTION, NORMOCEPHALIC Additional comments: Multiple hyperpigmented macules, likely moles/age spots, on face and head - Eye Exam Eye Exam: EOMI, PERRL - ENT Exam ENT Exam: Mucous Membranes Dry - Neck Exam Neck exam: Positive for: Normal Inspection. Negative for: Lymphadenopathy - Respiratory Exam Respiratory Exam: Rales (bilateral bases), NORMAL BREATHING PATTERN. absent: Accessory Muscle Use, Rhonchi, Wheezes, Respiratory Distress - Cardiovascular Exam Cardiovascular Exam: Tachycardia (around 110-115), REGULAR RHYTHM, +S1, +S2. absent: Diastolic murmur, Gallop, JVD, Rubs, Systolic Murmur - GI/Abdominal Exam GI & Abdominal Exam: Distended, Normal Bowel Sounds, Soft. absent: Tenderness Additional comments: PEG tube, insertion site clean, dry - Rectal Exam Additional comments: rectal exam done by surgical scheduler with me to direct entry midwife and she denied feeling any masses or crepitus and said there was normal tone - Exam Exam: NORMAL INSPECTION. absent: Scrotal Swelling, Testicular Tenderness - Extremities Exam Extremities exam: Positive for: normal capillary refill, normal inspection, pedal pulses present. Negative for: pedal edema Additional comments: small ulcer of left heel - Back Exam Additional comments: stage 3, possible 4 sacral ulcer approximately 8 cm x 9 cm partially covered with black eschar and partially with pink base - Neurological Exam Neurological exam: Alert, Altered (oriented to person only) - Psychiatric Exam Psychiatric exam: Normal Affect, Normal Mood - Skin Additional comments: Warm, dry, and intact except for that described above Results - Vital Signs Recent Vital Signs: Last Vital Signs Temp 98.3 F 11/16/17 21:58 Pulse 108 H 11/16/17 21:58 Resp 16 11/16/17 21:58 BP 141/64 11/16/17 21:58 Pulse Ox 94 L 11/16/17 21:58 - Labs Result Diagrams: 11/16/17 23:20 11/16/17 18:05 Assessment & Plan - Assessment and Plan (Free Text) Assessment: Patient is an 87 year old male with a past medical history of TIA, advanced dementia, CHF, HTN, COPD, osteoarthritis, who presents with sepsis likely due to sacral ulcer and possible necrotizing fasciitis vs cellulitis Plan: Patient hemodynamically stable and protecting airway at this time. Recommend the following: Monitor on telemetry Heparin drip without bolus to be stopped 3 hours prior to surgery scheduled in the morning with Dr. Vizcaino Xopenex treatment with re-examination of the lungs for clearing of airways O2 via nasal cannula d/c fluids to avoid overload Cisneros cultures Continue antibiotics (Vanc and Zosyn) ID consult Please reconsult as needed Patient seen and discussed with Dr. Turner <Flynn Turner - Last Filed: 11/17/17 05:45> Meds - Medications Medications: Current Medications Collagenase (Santyl) 0 gm TOP BID RYLIE Vancomycin HCl (Vancomycin 1gm) 1 gm in 250 mls @ 167 mls/hr IVPB DAILY RYLIE PRN Reason: Protocol Piperacillin Sod/Tazobactam Sod (Zosyn 3.375 In Ns 100ml) 100 mls @ 200 mls/hr IVPB Q6 RYLIE PRN Reason: Protocol Stop: 11/17/17 06:29 Last Admin: 11/17/17 00:31 Dose: 200 mls/hr Levalbuterol HCl (Xopenex) 0.63 mg IH [id number] PRN PRN Reason: Shortness of Breath Pantoprazole Sodium (Protonix Inj) 40 mg IVP DAILY [facility] Results - Vital Signs Recent Vital Signs: Last Vital Signs Temp 99.5 F 11/17/17 01:38 Pulse 106 H 11/17/17 02:00 Resp 20 11/17/17 01:38 BP 150/57 L 11/17/17 01:38 Pulse Ox 100 11/17/17 01:10 - Labs Result Diagrams: 11/16/17 23:20 11/16/17 18:05 Labs: Laboratory Results - last 24 hr 11/16/17 11/16/17 23:20 23:24 WBC 33.0 H* RBC 4.04 Hgb 9.3 L Hct 29.8 L MCV 73.8 L MCH 23.0 L MCHC 31.2 RDW 19.9 H Plt Count 443 MPV 9.5 Gran % 90.0 H Lymph % (Auto) 6.0 L [place] % (Auto) 3.9 Eos % (Auto) 0.0 L Baso % (Auto) 0.1 Gran # 29.67 H Lymph # (Auto) 2.0 [place] # (Auto) 1.3 H Eos # (Auto) 0.0 Baso # (Auto) 0.03 pCO2 34 L pO2 51.0 L HCO3 25.9 ABG pH 7.49 H ABG Total CO2 26.9 ABG O2 Saturation 92.8 L ABG Base Excess 2.9 ABG Potassium 4.1 Sodium 140.0 Chloride 113.0 H Glucose 114 H Lactate 1.2 FiO2 21.0 Arterial Blood Potassium 4.1
[2017-11-16] MEDS ORDERED: Levalbuterol 0.63 MG/3 ML Inhal Soln UD IH STA (23:37)
[2017-11-16] MEDS ORDERED: Levalbuterol 0.63 MG/3 ML Inhal Soln UD IH PRN (23:37)
[2017-11-16 23:40] LABS: ARTERIAL BLOOD GAS PCO2 34 mm/Hg (35-45); ARTERIAL BLOOD GAS PH 7.49 (7.35-7.45)
[2017-11-16 23:41] LABS: ARTERIAL BLOOD GAS HCO3 25.9 mmol/L (21-28); ARTERIAL BLOOD GAS O2 SAT 92.8 % (95-98); ARTERIAL BLOOD GAS TCO2 26.9 mmol.L (22-28)
[2017-11-16 23:50] LABS: BASO # 0.03 K/mm3 (0.0-2.0); BASO % 0.1 % (0.0-3.0); GRAN # 29.67 (1.4-6.5); HEMOGLOBIN 9.3 g/dL (14.0-18.0); MEAN CELL VOLUME 73.8 fl (80.0-105.0); MEAN CORPUSCULAR HGB CONC 31.2 g/dl (31.0-37.0); MEAN PLATELET VOLUME 9.5 fl (7.0-11.0); MONO # 1.3 (0.1-0.6); MONO % 3.9 % (1.0-6.0); RBC 4.04 10^6/uL (3.5-6.1); RED CELL DISTRIBUTION WIDTH 19.9 % (11.5-14.5)
--- NOTE | 2017-11-16 23:52 | PCM.SEPTIC ---
Sepsis Progress Note - Reassessment Type Date of Evaluation: 11/16/17 Time of Evaluation: 23:48 Reassessment Type: Non-invasive reassessment - Non Invasive Reassessment Were the most recent vital sign reviewed: Yes Vital Sign (Latest): Temp Pulse Resp BP Pulse Ox 98.3 F 108 H 16 141/64 94 L 11/16/17 21:58 11/16/17 21:58 11/16/17 21:58 11/16/17 21:58 11/16/17 21:58 Cardiovascular: Yes: Tachycardia. No: Gallop, JVD, Murmur, Irregularly Irregular Respiratory: Yes: Rales (b/l bases). No: Rhonchi, Wheezing Capillary Refill: Normal (Less than 2 sec) Skin: Warm, Dry
[2017-11-17] MEDS: Piperacillin/Tazobact 3.375 gm 100 ML IVPB SCH ×2 (00:31→08:28)
--- NOTE | 2017-11-17 01:44 | CP.PCM.PCO ---
Physician Communication Note - Physician Communication Note Physician Communication Note: CT: poss BL femoral arter throbosis. Hep IV drip hold 3hours prior to OR
[2017-11-17] MEDS ORDERED: Propofol 10 mg/ml Inj (20 ML) ONE (06:05)
[2017-11-17] MEDS ORDERED: Oxychlorosene Topical 2 gm Packet TOP ONE (06:06)
[2017-11-17] MEDS ORDERED: Rocuronium 10 mg/ml (5 ml) ONE (06:07)
[2017-11-17] MEDS ORDERED: Phenylephrine 10 mg/ml Inj ONE (06:13)
[2017-11-17] MEDS ORDERED: Neostigmine Methylsulfate 3mg/3ml Syringe IV ONE (06:38)
[2017-11-17] MEDS ORDERED: Glycopyrrolate 0.2 mg/ml (2ml vial) ONE (06:38)
[2017-11-17] MEDS ORDERED: Morphine 2 mg/2 mL syringe IVP PRN (07:04)
[2017-11-17] MEDS ORDERED: Sodium Chloride 0.9% 1,000 ML IV SCH (07:15)
--- NOTE | 2017-11-17 07:15 | PCM.SURG1 ---
Surgeon's Initial Post Op Note - Surgeon's Notes Surgeon: Dr. Vizcaino Licensed Optical Dispenser: Sary Alejandre, [email or web address] Type of Anesthesia: General Endo Pre-Operative Diagnosis: sacral decubitus ulcer with necrotizing fasciitis Operative Findings: 12cm diameter eschar overlying unstageable ulcer, gas and purulent fluid under the eschar with foul odor. Necrotic tissue down to sacrum. Lateral subcutaneous tract with purulent fluid 20cm left lateral. Also two 10cm superficial and deep tracts extending inferior into the right perineum with purulent fluid drainage Post-Operative Diagnosis: stage 4 sacral decubitus ulcer with necrotizing fasciitis extening left lateral gluteus and ischial/rectal Operation Performed: debridement of sacral decubitus ulcer and necrotizing fasciitis of the left gluteus and perineum Specimen/Specimens Removed: cultures of wound and debrided necrotic tissue Estimated Blood Loss: EBL {In ML}: 10 Drains Used: [place] (1 ervin left lateral and 1 ervin in perineum, also one red rubber catheter in deep extension in perineum) Post-Op Condition: Poor Date of Surgery/Procedure: 11/17/17 Time of Surgery/Procedure: 05:30
[2017-11-17] MEDS: Meropenem IV 1 gm in NS 50 ML IVPB SCH ×3 (08:27→21:36)
[2017-11-17] MEDS: Linezolid 600 mg in D5W 300 ml 600 MG/300 ML BAG IVPB SCH ×2 (08:29→22:33)
[2017-11-17] MEDS ORDERED: Vancomycin 1gm in NS 250ml 1 GM/250 ML BAG IVPB SCH (10:00)
[2017-11-17] MEDS: Collagenase 250 Units/gm Ointment(30 gm) TOP SCH ×2 (10:53→18:43)
--- NOTE | 2017-11-17 11:12 | CARD ---
APPROVED REPORT EKG Measurement Heart [id number] <Conclusion> Sinus rhythm with premature supraventricular complexes IRBBB STTW changes c/w ischemia Prolonged Qtc No change
[2017-11-17 13:36] LABS: BASO # 0.01 K/mm3 (0.0-2.0); GRAN # 23.27 (1.4-6.5); HEMOGLOBIN 7.3 g/dL (14.0-18.0); LYMPH # 1.6 (1.2-3.4); LYMPH % 6.3 % (22.0-35.0); MEAN CELL VOLUME 73.8 fl (80.0-105.0); MEAN CORPUSCULAR HEMOGLOBIN 22.8 pg (25.0-35.0); MEAN CORPUSCULAR HGB CONC 30.9 g/dl (31.0-37.0); MEAN PLATELET VOLUME 8.8 fl (7.0-11.0); MONO % 3.7 % (1.0-6.0); RBC 3.2 10^6/uL (3.5-6.1)
[2017-11-17 13:55] LABS: WHITE BLOOD COUNT 25.9 10^3/ul (4.5-11.0)
[2017-11-17 13:57] LABS: ALB/GLOB RATIO 0.8 (1.1-1.8); ALBUMIN 2.7 g/dL (3.0-4.8); ALT/SGPT 84 U/L (7-56); AST/SGOT 84 U/L (17-59); BLOOD UREA NITROGEN 29 mg/dL (7-21); CALCIUM 7.7 mg/dL (8.4-10.5); GFR AFRICAN-AMERICAN > 60; GFR NON-AFRICAN AMERICAN > 60
[2017-11-17] MEDS ORDERED: Silver Nitrate Topical - Stick TOP ONE (14:01)
[2017-11-17] MEDS: Dakin's Topical 0.5%-Full Strength (480 ml) TOP SCH (14:12)
[2017-11-17] MEDS: Sodium Chloride 0.45% 1,000 ML IV SCH (14:31)
[2017-11-17 14:39] LABS: IRON 10 ug/dL (45-180); TOTAL IRON BINDING CAPACITY 232 ug/dL (261-462)
[2017-11-17 14:41] LABS: % IRON SATURATION 4 % (20-55)
[2017-11-17] MEDS: Heparin25000 units/250ml 1/2NS 25,000 UNITS/250 ML BAG IV PRN (14:49)
--- NOTE | 2017-11-17 14:55 | CP.PCM.CON ---
History of Present Illness - History of Present Illness History of Present Illness: 87 year old male with PMH of HTN, cerebrovascular accident, history of pneumonia , BPH, COPD, dementia was brought in to [facility] [place] [facility] because of multiple episodes of vomiting. The patient was also noted to have worsening sacral decubitus ulcer. There was no note of fever with the patient, no loss of consciousness, no convulsions, no diarrhea. CT scan of the abdomen and pelvis showed left gluteal area cellulitis and possible necrotizing infection. Patient underwent debridement today which confirmed necrotizing fasciitis. Infectious diseases consult is requested to further evaluate and manage. Review of Systems - Review of Systems Systems not reviewed;Unavailable: Dementia Past Patient History - Infectious Disease Hx of Infectious Diseases: None - Tetanus Immunizations Tetanus Immunization: Unknown - Past Medical History & Family History Past Medical History?: Yes Past Family History: Reviewed and not pertinent - Past Social History Smoking Status: Unknown If Ever Smoked - CARDIAC Hx Hypertension: Yes - PULMONARY Hx Chronic Obstructive Pulmonary Disease (COPD): Yes - NEUROLOGICAL HX Cerebrovascular Accident: Yes (TIA) Hx Dementia: Yes - HEENT Hx HEENT Problems: Yes (WEARS RX GLASSES) Hx Cataracts: Yes - RENAL Hx Chronic Kidney Disease: Yes - ENDOCRINE/METABOLIC Hx Endocrine Disorders: No - HEMATOLOGICAL/ONCOLOGICAL Hx Blood Disorders: No - INTEGUMENTARY Hx Dermatological Problems: Yes (MULTIPLE ROUND OLD AGE SPOTS TO FACE,ARMS) - MUSCULOSKELETAL/RHEUMATOLOGICAL Hx Arthritis: Yes - GASTROINTESTINAL Other/Comment: +peg tube on LLQ - GENITOURINARY/GYNECOLOGICAL Hx Genitourinary Disorders: Yes - PSYCHIATRIC Hx Psychophysiologic Disorder: No Hx Substance Use: No - SURGICAL HISTORY Other/Comment: peg tube - ANESTHESIA Hx Anesthesia Reactions: (pt unable to answer) Meds Allergies/Adverse Reactions: Allergies Allergy/AdvReac Type Severity Reaction Status Date / Time No Known Allergies Allergy Verified 06/08/17 07:28 - Medications Medications: Current Medications Collagenase (Santyl) 0 gm TOP BID RYLIE Linezolid (Zyvox 600mg/300ml D5w) 600 mg in 300 mls @ 200 mls/hr IVPB Q12 YRLIE PRN Reason: Protocol Stop: 11/24/17 06:42 Meropenem (Merrem Iv 1 Gm Premix) 50 mls @ 100 mls/hr IVPB Q8 RYLIE PRN Reason: Protocol Stop: 11/24/17 06:46 Levalbuterol HCl (Xopenex) 0.63 mg IH [id number] PRN PRN Reason: Shortness of Breath Pantoprazole Sodium (Protonix Inj) 40 mg IVP DAILY RYLIE Physical Exam - Constitutional Appears: Chronically Ill - Head Exam Head Exam: NORMAL INSPECTION - ENT Exam ENT Exam: Mucous Membranes Moist - Neck Exam Neck exam: Negative for: Meningismus - Respiratory Exam Respiratory Exam: Decreased Breath Sounds - Cardiovascular Exam Cardiovascular Exam: +S1, +S2 - GI/Abdominal Exam GI & Abdominal Exam: Soft. absent: Tenderness Additional comments: decubitus areas with dressings in place Results - Vital Signs Recent Vital Signs: Last Vital Signs Temp 99.8 F H 11/17/17 06:00 Pulse 100 H 11/17/17 06:00 Resp 20 11/17/17 06:00 BP 133/58 L 11/17/17 06:00 Pulse Ox 99 11/17/17 06:00 - Labs Result Diagrams: 11/17/17 13:30 11/17/17 13:30 Labs: Laboratory Results - last 24 hr 11/16/17 11/16/17 23:20 23:24 WBC 33.0 H* RBC 4.04 Hgb 9.3 L Hct 29.8 L MCV 73.8 L MCH 23.0 L MCHC 31.2 RDW 19.9 H Plt Count 443 MPV 9.5 Gran % 90.0 H Lymph % (Auto) 6.0 L [place] % (Auto) 3.9 Eos % (Auto) 0.0 L Baso % (Auto) 0.1 Gran # 29.67 H Lymph # (Auto) 2.0 [place] # (Auto) 1.3 H Eos # (Auto) 0.0 Baso # (Auto) 0.03 pCO2 34 L pO2 51.0 L HCO3 25.9 ABG pH 7.49 H ABG Total CO2 26.9 ABG O2 Saturation 92.8 L ABG Base Excess 2.9 ABG Potassium 4.1 Sodium 140.0 Chloride 113.0 H Glucose 114 H Lactate 1.2 FiO2 21.0 Arterial Blood Potassium 4.1 Assessment & Plan - Assessment and Plan (Free Text) Plan: Assessment severe sepsis due to left gluteal necrotizing fasciitis S/P debridement today history of severe sepsis S/P acute renal failure due to intra-abdominal infection with ascending colitis in this patient who developed right sided pneumohydrothorax S/P right sided chest tube placement history of severe sepsis with acute renal failure due to HCAP TIA COPD dementia HTN osteoarthritis chronic CHF cataracts Plan started Zyvox and Merrem pending blood and OR cultures - follow up further plans of Surgery (for possible further subsequent debridement in the coming days ) will monitor clinically
[2017-11-17 20:06] LABS: BASO # 0.02 K/mm3 (0.0-2.0); BASO % 0.1 % (0.0-3.0); EOS % 0.1 % (1.5-5.0); GRAN # 18.9 (1.4-6.5); GRAN % 84.9 % (50.0-68.0); HEMOGLOBIN 7.2 g/dL (14.0-18.0); LYMPH # 2.4 (1.2-3.4); LYMPH % 10.6 % (22.0-35.0); MEAN CORPUSCULAR HGB CONC 29.8 g/dl (31.0-37.0); MEAN PLATELET VOLUME 9.3 fl (7.0-11.0); MONO % 4.3 % (1.0-6.0); RBC 3.27 10^6/uL (3.5-6.1); RED CELL DISTRIBUTION WIDTH 20.2 % (11.5-14.5); WHITE BLOOD COUNT 22.3 10^3/ul (4.5-11.0)
[2017-11-18 02:38] LABS: MEAN CELL VOLUME 73.9 fl (80.0-105.0); MEAN CORPUSCULAR HGB CONC 29.7 g/dl (31.0-37.0); MEAN PLATELET VOLUME 9.2 fl (7.0-11.0); RBC 3.14 10^6/uL (3.5-6.1); RED CELL DISTRIBUTION WIDTH 20.2 % (11.5-14.5); WHITE BLOOD COUNT 20.1 10^3/ul (4.5-11.0)
[2017-11-18 02:41] LABS: HEMOGLOBIN 6.9 g/dL (14.0-18.0)
[2017-11-18] MEDS: Sodium Chloride 0.45% 1,000 ML IV SCH ×2 (05:27→21:20)
[2017-11-18] MEDS: Meropenem IV 1 gm in NS 50 ML IVPB SCH ×3 (05:28→21:11)
[2017-11-18] MEDS: Heparin25000 units/250ml 1/2NS 25,000 UNITS/250 ML BAG IV PRN (05:28)
[2017-11-18] MEDS ORDERED: Silver Nitrate Topical - Stick TOP ONE (06:36)
[2017-11-18 07:14] LABS: MEAN CELL VOLUME 74.2 fl (80.0-105.0); MEAN CORPUSCULAR HEMOGLOBIN 22.6 pg (25.0-35.0); MEAN CORPUSCULAR HGB CONC 30.4 g/dl (31.0-37.0); MEAN PLATELET VOLUME 9.8 fl (7.0-11.0); RBC 3.1 10^6/uL (3.5-6.1); RED CELL DISTRIBUTION WIDTH 20.2 % (11.5-14.5); WHITE BLOOD COUNT 18.3 10^3/ul (4.5-11.0)
[2017-11-18 07:31] LABS: ALB/GLOB RATIO 0.8 (1.1-1.8); ALBUMIN 2.6 g/dL (3.0-4.8); ALT/SGPT 68 U/L (7-56); AST/SGOT 63 U/L (17-59); BLOOD UREA NITROGEN 21 mg/dL (7-21); CALCIUM 7.8 mg/dL (8.4-10.5); GFR AFRICAN-AMERICAN > 60; GFR NON-AFRICAN AMERICAN > 60
--- NOTE | 2017-11-18 08:14 | CP.PCM.PN ---
Subjective - Date & Time of Evaluation Date of Evaluation: 11/18/17 Time of Evaluation: 07:00 - Subjective Subjective: General Surgery Note for Dr. Vizcaino Patient seen and examined at bedside. Overnight, patient Hgb was 6.9. Blood consent was obtained from Next of Kin, Jose. Patient is getting 1 unit of PRBC. Sacral dressing was changed twice overnight. Patient has minimla bleeding from sacral wound. He is still on heparin drip and Iv fluids. Patient has awake but not oriented. He has no complaints. Objective - Vital Signs/Intake and Output Vital Signs (last 24 hours): Temp Pulse Resp BP Pulse Ox 97.7 F 78 20 147/66 100 11/18/17 08:07 11/18/17 08:07 11/18/17 08:07 11/18/17 08:07 11/17/17 23:53 Intake and Output: 11/18/17 11/18/17 06:59 18:59 Intake Total 1323 0 Output Total 1100 Balance 223 0 - Medications Medications: Current Medications Aspirin (Ecotrin) 81 mg PO DAILY [facility] [place] Last Admin: 11/17/17 14:31 Dose: 81 mg Collagenase (Santyl) 1 gm TOP BID RYLIE Last Admin: 11/17/17 18:43 Dose: Not Given Donepezil HCl (Aricept) 5 mg PEG HS [facility] [place] Last Admin: 11/17/17 21:36 Dose: 5 mg Linezolid (Zyvox 600mg/300ml D5w) 600 mg in 300 mls @ 200 mls/hr IVPB Q12 RYLIE PRN Reason: Protocol Stop: 11/24/17 06:42 Last Admin: 11/17/17 22:33 Dose: 200 mls/hr Meropenem (Merrem Iv 1 Gm Premix) 50 mls @ 100 mls/hr IVPB Q8 RYLIE PRN Reason: Protocol Stop: 11/24/17 06:46 Last Admin: 11/18/17 05:28 Dose: 100 mls/hr Heparin Sodium/Sodium Chloride (Heparin 11202 Units/250ml 1/2 Normal Saline) 25 ,000 units in 250 mls @ 11.431 mls/hr IV .[id number] PRN; Protocol; 18 UNITS/KG/HR PRN Reason: ADJUST RATE PER PROTOCOL Last Admin: 11/18/17 05:28 Dose: 14.8 units/kg/hr, 9.4 mls/hr Sodium Chloride (Sodium Chloride 0.45%) 1,000 mls @ 80 mls/hr IV .[id number] [facility] [place] Last Admin: 11/18/17 05:27 Dose: 80 mls/hr Levalbuterol HCl (Xopenex) 0.63 mg IH [id number] PRN PRN Reason: Shortness of Breath Losartan Potassium (Cozaar) 25 mg PEG DAILY [facility] [place] Last Admin: 11/17/17 11:00 Dose: 25 mg Morphine Sulfate (Morphine) 2 mg IVP Q15M PRN PRN Reason: Pain, moderate (4-7) Pantoprazole Sodium (Protonix Inj) 40 mg IVP DAILY [facility] [place] Last Admin: 11/17/17 11:01 Dose: 40 mg Sodium Hypochlorite (Dakins Solution 0.5%) 500 ml TOP DAILY [facility] [place] Last Admin: 11/17/17 14:12 Dose: Not Given - Labs Labs: 11/18/17 06:30 11/18/17 06:30 PT 14.8 SECONDS (9.4-12.5) H 11/16/17 18:05 INR 1.29 (0.93-1.08) H 11/16/17 18:05 APTT 63.8 Seconds (25.1-36.5) H 11/18/17 02:10 - Additional Findings Additional findings: - Constitutional Appears: No Acute Distress, Chronically Ill - Head Exam Head Exam: ATRAUMATIC, NORMOCEPHALIC - Eye Exam Eye Exam: Normal appearance - ENT Exam ENT Exam: Mucous Membranes Moist - Respiratory Exam Respiratory Exam: NORMAL BREATHING PATTERN. absent: Accessory Muscle Use, Respiratory Distress - Cardiovascular Exam Cardiovascular Exam: RRR - GI/Abdominal Exam GI & Abdominal Exam: Distended, Soft. absent: Tenderness Additional comments: gastrostomy tube present with no surrounding erythema or drainage - Extremities Exam Extremities exam: Negative for: calf tenderness, pedal edema, tenderness Additional comments: left heel wound 3cm in diameter with no drainage or fluctuance - Back Exam Back exam: absent: CVA tenderness (L), CVA tenderness (R) - Neurological Exam Neurological exam: Awake, Altered - Psychiatric Exam Psychiatric exam: Flat Affect - Skin Skin Exam: Warm Additional comments: sacral decubitus wound with red rubber catheter and [address] - dressing applied and clean/dry/intact left heel wound Assessment and Plan - Assessment and Plan (Free Text) Assessment: 87M who presents with sacral decubitus ulcer with necrotizing fasciitis into the left gluteal region and anemia -Monitor Hgb, Transfuse PRN -Dressing changes with Dakins solution Q6H -Heparin drip -IVF -IV antibiotics -Analgesics/Anti-emetics PRN -f/u ID recommendations -Strict intake and output -air mattress, positioning Q2, heel protectors -Discussed with Dr. Carrillo Watkins PGY1
[2017-11-18] MEDS: Collagenase 250 Units/gm Ointment(30 gm) TOP SCH ×2 (12:07→21:13)
[2017-11-18] MEDS: Linezolid 600 mg in D5W 300 ml 600 MG/300 ML BAG IVPB SCH ×2 (12:07→21:26)
[2017-11-18] MEDS: Dakin's Topical 0.5%-Full Strength (480 ml) TOP SCH ×2 (12:09→23:26)
[2017-11-18 13:28] LABS: HEMOGLOBIN 7.8 g/dL (14.0-18.0); MEAN CELL VOLUME 74.5 fl (80.0-105.0); MEAN CORPUSCULAR HEMOGLOBIN 22.9 pg (25.0-35.0); MEAN CORPUSCULAR HGB CONC 30.7 g/dl (31.0-37.0); MEAN PLATELET VOLUME 9.1 fl (7.0-11.0); RBC 3.41 10^6/uL (3.5-6.1); RED CELL DISTRIBUTION WIDTH 19.7 % (11.5-14.5); WHITE BLOOD COUNT 16.6 10^3/ul (4.5-11.0)
--- NOTE | 2017-11-18 14:25 | CP.PCM.PN ---
Subjective - Date & Time of Evaluation Date of Evaluation: 11/18/17 Time of Evaluation: 11:10 - Subjective Subjective: No fevers, not in distress. Objective - Vital Signs/Intake and Output Vital Signs (last 24 hours): Temp Pulse Resp BP Pulse Ox 98.0 F 88 16 140/86 100 11/18/17 10:12 11/18/17 10:12 11/18/17 10:12 11/18/17 10:12 11/17/17 23:53 Intake and Output: 11/18/17 11/18/17 06:59 18:59 Intake Total 1323 325 Output Total 1100 Balance 223 325 - Medications Medications: Current Medications Aspirin (Ecotrin) 81 mg PO DAILY [facility] Last Admin: 11/17/17 14:31 Dose: 81 mg Collagenase (Santyl) 1 gm TOP BID [facility] Last Admin: 11/17/17 18:43 Dose: Not Given Donepezil HCl (Aricept) 5 mg PEG HS [facility] Last Admin: 11/17/17 21:36 Dose: 5 mg Linezolid (Zyvox 600mg/300ml D5w) 600 mg in 300 mls @ 200 mls/hr IVPB Q12 RYLIE PRN Reason: Protocol Stop: 11/24/17 06:42 Last Admin: 11/17/17 22:33 Dose: 200 mls/hr Meropenem (Merrem Iv 1 Gm Premix) 50 mls @ 100 mls/hr IVPB Q8 RYLIE PRN Reason: Protocol Stop: 11/24/17 06:46 Last Admin: 11/18/17 05:28 Dose: 100 mls/hr Heparin Sodium/Sodium Chloride (Heparin 25560 Units/250ml 1/2 Normal Saline) 25 ,000 units in 250 mls @ 11.431 mls/hr IV .[id number] PRN; Protocol; 18 UNITS/KG/HR PRN Reason: ADJUST RATE PER PROTOCOL Last Admin: 11/18/17 05:28 Dose: 14.8 units/kg/hr, 9.4 mls/hr Sodium Chloride (Sodium Chloride 0.45%) 1,000 mls @ 80 mls/hr IV .[id number] [facility] Last Admin: 11/18/17 05:27 Dose: 80 mls/hr Levalbuterol HCl (Xopenex) 0.63 mg IH [id number] PRN PRN Reason: Shortness of Breath Losartan Potassium (Cozaar) 25 mg PEG DAILY [facility] Last Admin: 11/17/17 11:00 Dose: 25 mg Morphine Sulfate (Morphine) 2 mg IVP Q15M PRN PRN Reason: Pain, moderate (4-7) Pantoprazole Sodium (Protonix Inj) 40 mg IVP DAILY [facility] Last Admin: 11/17/17 11:01 Dose: 40 mg Sodium Hypochlorite (Dakins Solution 0.5%) 500 ml TOP DAILY [facility] Last Admin: 11/17/17 14:12 Dose: Not Given - Labs Labs: 11/18/17 06:30 11/18/17 06:30 PT 14.8 SECONDS (9.4-12.5) H 11/16/17 18:05 INR 1.29 (0.93-1.08) H 11/16/17 18:05 APTT 63.8 Seconds (25.1-36.5) H 11/18/17 02:10 - Constitutional Appears: Chronically Ill - Head Exam Head Exam: NORMAL INSPECTION - ENT Exam ENT Exam: Mucous Membranes Moist - Neck Exam Neck Exam: absent: Meningismus - Respiratory Exam Respiratory Exam: Decreased Breath Sounds - Cardiovascular Exam Cardiovascular Exam: +S1, +S2 - GI/Abdominal Exam GI & Abdominal Exam: Soft. absent: Tenderness Assessment and Plan - Assessment and Plan (Free Text) Plan: Assessment severe sepsis due to left gluteal necrotizing fasciitis S/P debridement POD #1 history of severe sepsis S/P acute renal failure due to intra-abdominal infection with ascending colitis in this patient who developed right sided pneumohydrothorax S/P right sided chest tube placement history of severe sepsis with acute renal failure due to HCAP TIA COPD dementia HTN osteoarthritis chronic CHF cataracts Plan continue Zyvox and Merrem day 2 pending blood and OR cultures - follow up further plans of Surgery (for possible further subsequent debridement in the coming days) will continue to monitor clinically
[2017-11-18] MEDS ORDERED: Morphine 2 mg/ml ISec IVP PRN (15:23)
[2017-11-18] MEDS ORDERED: Acetaminophen 650mg/20.3ml solution UD PEG PRN (15:31)
--- NOTE | 2017-11-18 17:18 | US ---
HISTORY: sepesis, ?gallbladder inflammation on CT, LFT incr COMPARISON: None. TECHNIQUE: Sonographic evaluation of the abdomen. FINDINGS: LIVER: Measures 13.5 x 10.25 cm. Increased echogenicity of the liver parenchyma. There is a septated cyst in the left lobe of the liver measuring 1.56 x 1.37 x 1.59 GALLBLADDER: Large gallstones are seen. There is a 2 cm stone near the neck of the gallbladder. COMMON BILE DUCT: Measures 3 mm. No stones. No dilatation. PANCREAS: Not well visualized RIGHT KIDNEY: Measures 9.55 x 5.14 x 5.41cm. Normal echogenicity. No calculus, mass, or hydronephrosis. LEFT KIDNEY: Measures 9.22 x 5.85 x 5.36cm. Normal echogenicity. No calculus, mass, or hydronephrosis. SPLEEN: Normal in size and contour. No mass. 8 x 5 cm AORTA: No aneurysmal dilatation. IVC: Unremarkable. OTHER FINDINGS: None. IMPRESSION: Gallstones. Septated cyst in the left lobe of the liver
[2017-11-18] MEDS: Saliva Substitute 44.3 ML PO SCH (23:26)
[2017-11-19] MEDS: Meropenem IV 1 gm in NS 50 ML IVPB SCH ×3 (05:44→21:34)
[2017-11-19] MEDS: Saliva Substitute 44.3 ML PO SCH ×9 (05:46→21:53)
[2017-11-19] MEDS: Heparin25000 units/250ml 1/2NS 25,000 UNITS/250 ML BAG IV PRN (05:56)
[2017-11-19] MEDS: Sodium Chloride 0.45% 1,000 ML IV SCH ×2 (06:11→21:50)
[2017-11-19 07:39] LABS: BASO # 0.02 K/mm3 (0.0-2.0); BASO % 0.1 % (0.0-3.0); EOS # 0.1 (0.0-0.7); EOS % 0.6 % (1.5-5.0); GRAN # 16.35 (1.4-6.5); GRAN % 82.3 % (50.0-68.0); HEMOGLOBIN 9.7 g/dL (14.0-18.0); LYMPH # 2.4 (1.2-3.4); LYMPH % 12.2 % (22.0-35.0); MEAN CORPUSCULAR HEMOGLOBIN 23.8 pg (25.0-35.0); MEAN CORPUSCULAR HGB CONC 31.7 g/dl (31.0-37.0); MEAN PLATELET VOLUME 9.9 fl (7.0-11.0); MONO % 4.8 % (1.0-6.0); RBC 4.08 10^6/uL (3.5-6.1); RED CELL DISTRIBUTION WIDTH 19.3 % (11.5-14.5); WHITE BLOOD COUNT 19.9 10^3/ul (4.5-11.0)
[2017-11-19 08:10] LABS: ALB/GLOB RATIO 0.8 (1.1-1.8); ALBUMIN 2.6 g/dL (3.0-4.8); ALT/SGPT 54 U/L (7-56); AST/SGOT 48 U/L (17-59); BLOOD UREA NITROGEN 16 mg/dL (7-21); CALCIUM 8.1 mg/dL (8.4-10.5); GFR AFRICAN-AMERICAN > 60; GFR NON-AFRICAN AMERICAN > 60
--- NOTE | 2017-11-19 09:48 | CP.PCM.PN ---
Subjective - Date & Time of Evaluation Date of Evaluation: 11/19/17 Time of Evaluation: 08:50 - Subjective Subjective: Patient seen and examined with Dr. Vizcaino at bedside this AM. Patient denies pain, fevers, chills but complains of not having a bowel movement. Objective - Vital Signs/Intake and Output Vital Signs (last 24 hours): Temp Pulse Resp BP Pulse Ox 98.2 F 78 20 149/58 L 97 11/19/17 06:00 11/19/17 06:00 11/19/17 06:00 11/19/17 06:00 11/19/17 06:00 Intake and Output: 11/19/17 11/19/17 06:59 18:59 Intake Total 1575 Output Total 500 Balance 1075 - Medications Medications: Current Medications Acetaminophen (Tylenol 650mg/20.3ml Solution Ud) 650 mg PEG Q6H PRN PRN Reason: Pain, Mild (1-3) Aspirin (Ecotrin) 81 mg PO DAILY [facility] Last Admin: 11/18/17 12:08 Dose: 81 mg Collagenase (Santyl) 1 gm TOP BID RYLIE Last Admin: 11/18/17 21:13 Dose: Not Given Donepezil HCl (Aricept) 5 mg PEG HS [facility] Last Admin: 11/18/17 21:11 Dose: 5 mg Linezolid (Zyvox 600mg/300ml D5w) 600 mg in 300 mls @ 200 mls/hr IVPB Q12 RYLIE PRN Reason: Protocol Stop: 11/24/17 06:42 Last Admin: 11/18/17 21:26 Dose: 200 mls/hr Meropenem (Merrem Iv 1 Gm Premix) 50 mls @ 100 mls/hr IVPB Q8 RYLIE PRN Reason: Protocol Stop: 11/24/17 06:46 Last Admin: 11/19/17 05:44 Dose: 100 mls/hr Heparin Sodium/Sodium Chloride (Heparin 59135 Units/250ml 1/2 Normal Saline) 25 ,000 units in 250 mls @ 11.431 mls/hr IV .[id number] PRN; Protocol; 18 UNITS/KG/HR PRN Reason: ADJUST RATE PER PROTOCOL Last Admin: 11/19/17 05:56 Dose: 14.8 units/kg/hr, 9.4 mls/hr Sodium Chloride (Sodium Chloride 0.45%) 1,000 mls @ 80 mls/hr IV .[id number] [facility] Last Admin: 11/19/17 06:11 Dose: 80 mls/hr Levalbuterol HCl (Xopenex) 0.63 mg IH [id number] PRN PRN Reason: Shortness of Breath Losartan Potassium (Cozaar) 25 mg PEG DAILY [facility] Last Admin: 11/18/17 12:08 Dose: 25 mg Morphine Sulfate (Morphine) 2 mg IVP Q4H PRN PRN Reason: Pain, severe (8-10) Last Admin: 11/18/17 23:25 Dose: 2 mg Pantoprazole Sodium (Protonix Inj) 40 mg IVP DAILY [facility] Last Admin: 11/18/17 12:06 Dose: 40 mg Saliva Substitute (Saliva Substitute) 2 ml PO Q2H [facility] Last Admin: 11/19/17 05:47 Dose: Not Given Silver Sulfadiazine (Silvadene 1% 25 Gm) 0 gm TP BID [facility] Sodium Hypochlorite (Dakins Solution 0.5%) 500 ml TOP DAILY [facility] Last Admin: 11/18/17 23:26 Dose: 1 applic - Labs Labs: 11/19/17 06:30 11/19/17 06:30 PT 14.8 SECONDS (9.4-12.5) H 11/16/17 18:05 INR 1.29 (0.93-1.08) H 11/16/17 18:05 APTT 70.5 Seconds (25.1-36.5) H 11/19/17 06:30 - Constitutional Appears: Well, Non-toxic, No Acute Distress - Head Exam Head Exam: ATRAUMATIC, NORMOCEPHALIC - Eye Exam Eye Exam: Normal appearance. absent: Scleral icterus - ENT Exam ENT Exam: Mucous Membranes Moist - Respiratory Exam Respiratory Exam: NORMAL BREATHING PATTERN. absent: Accessory Muscle Use, Respiratory Distress - GI/Abdominal Exam GI & Abdominal Exam: Soft. absent: Tenderness - Extremities Exam Extremities Exam: absent: Calf Tenderness, Pedal Edema - Neurological Exam Neurological Exam: Alert, Awake - Psychiatric Exam Psychiatric exam: Normal Affect, Normal Mood - Skin Skin Exam: Dry, Intact, Warm Additional comments: except for stage for sacral decubitus ulcer with extensio in the left gluteal region and right perinuem/perirectum. Necrotic tissue at the base and purulent fluid drainage from around the drains--a ervin in the left lateral extension, and a ervin and a red rubber catheter in the perineal extension Assessment and Plan - Assessment and Plan (Free Text) Assessment: 87M with necrotizing fasciitis from a sacral decubitus wound POD#2 s/p debridement Plan: Will repeat CT scan Gayla to re-evaluate soft tissue necrosis Continue to trend CBC--hgb responded appropriately to 2 units of blood yesterday. Transfuse as needed for anemia or hemodynamic changes, WBC up to 19.9 from 16.6. Will continue to monitor closely Continue antibiotics per ID Silvadene dressing changes BID Will need further surgical debridement of the wound, but for now patient is stabilizing Patient may have tube feeds from a surgical standpoint and should have nutritional supplementation for wound healing--will follow up nutrition consult recommendations Seen and discussed with Dr. Carrillo Alejandre PGY2
[2017-11-19] MEDS ORDERED: Dakin's Topical 0.5%-Full Strength (480 ml) TOP SCH (10:00)
[2017-11-19] MEDS: Dakin's Topical 0.5%-Full Strength (480 ml) TOP SCH (11:47)
[2017-11-19] MEDS: Linezolid 600 mg in D5W 300 ml 600 MG/300 ML BAG IVPB SCH ×2 (11:48→21:35)
[2017-11-19] MEDS: Collagenase 250 Units/gm Ointment(30 gm) TOP SCH (11:48)
--- NOTE | 2017-11-19 12:08 | CP.PCM.CON ---
<Josy Gordon - Last Filed: 11/19/17 12:03> History of Present Illness - History of Present Illness History of Present Illness: Podiatry Consult note for Dr. Hewitt 87 year old male with PMHx including CHF, COPD, HTN, CVA, dementia was seen at bedside regarding left heel ulcer. Patient is unable to answer questions, history obtained from chart. Past Patient History - Infectious Disease Hx of Infectious Diseases: None - Tetanus Immunizations Tetanus Immunization: Unknown - Past Medical History & Family History Past Medical History?: Yes Past Family History: Reviewed and not pertinent - Past Social History Smoking Status: Unknown If Ever Smoked - CARDIAC Hx Hypertension: Yes - PULMONARY Hx Chronic Obstructive Pulmonary Disease (COPD): Yes - NEUROLOGICAL HX Cerebrovascular Accident: Yes (TIA) Hx Dementia: Yes - HEENT Hx HEENT Problems: Yes (WEARS RX GLASSES) Hx Cataracts: Yes - RENAL Hx Chronic Kidney Disease: Yes - ENDOCRINE/METABOLIC Hx Endocrine Disorders: No - HEMATOLOGICAL/ONCOLOGICAL Hx Blood Disorders: No - INTEGUMENTARY Hx Dermatological Problems: Yes (MULTIPLE ROUND OLD AGE SPOTS TO FACE,ARMS) - MUSCULOSKELETAL/RHEUMATOLOGICAL Hx Arthritis: Yes - GASTROINTESTINAL Other/Comment: +peg tube on LLQ - GENITOURINARY/GYNECOLOGICAL Hx Genitourinary Disorders: Yes - PSYCHIATRIC Hx Psychophysiologic Disorder: No Hx Substance Use: No - SURGICAL HISTORY Other/Comment: peg tube - ANESTHESIA Hx Anesthesia Reactions: (pt unable to answer) Meds Allergies/Adverse Reactions: Allergies Allergy/AdvReac Type Severity Reaction Status Date / Time No Known Allergies Allergy Verified 06/08/17 07:28 - Medications Medications: Current Medications Acetaminophen (Tylenol 650mg/20.3ml Solution Ud) 650 mg PEG Q6H PRN PRN Reason: Pain, Mild (1-3) Aspirin (Ecotrin) 81 mg PO DAILY [facility] Last Admin: 11/19/17 11:45 Dose: 81 mg Collagenase (Santyl) 1 gm TOP BID [facility] Last Admin: 11/19/17 11:48 Dose: Not Given Donepezil HCl (Aricept) 5 mg PEG HS [facility] Last Admin: 11/18/17 21:11 Dose: 5 mg Linezolid (Zyvox 600mg/300ml D5w) 600 mg in 300 mls @ 200 mls/hr IVPB Q12 RYLIE PRN Reason: Protocol Stop: 11/24/17 06:42 Last Admin: 11/19/17 11:48 Dose: 200 mls/hr Meropenem (Merrem Iv 1 Gm Premix) 50 mls @ 100 mls/hr IVPB Q8 RYLIE PRN Reason: Protocol Stop: 11/24/17 06:46 Last Admin: 11/19/17 05:44 Dose: 100 mls/hr Heparin Sodium/Sodium Chloride (Heparin 70800 Units/250ml 1/2 Normal Saline) 25 ,000 units in 250 mls @ 11.431 mls/hr IV .[id number] PRN; Protocol; 18 UNITS/KG/HR PRN Reason: ADJUST RATE PER PROTOCOL Last Admin: 11/19/17 05:56 Dose: 14.8 units/kg/hr, 9.4 mls/hr Sodium Chloride (Sodium Chloride 0.45%) 1,000 mls @ 80 mls/hr IV .[id number] [facility] Last Admin: 11/19/17 06:11 Dose: 80 mls/hr Levalbuterol HCl (Xopenex) 0.63 mg IH [id number] PRN PRN Reason: Shortness of Breath Losartan Potassium (Cozaar) 25 mg PEG DAILY [facility] Last Admin: 11/19/17 11:45 Dose: 25 mg Morphine Sulfate (Morphine) 2 mg IVP Q4H PRN PRN Reason: Pain, severe (8-10) Last Admin: 11/18/17 23:25 Dose: 2 mg Pantoprazole Sodium (Protonix Inj) 40 mg IVP DAILY [facility] Last Admin: 11/19/17 11:45 Dose: 40 mg Saliva Substitute (Saliva Substitute) 2 ml PO Q2H [facility] Last Admin: 11/19/17 05:47 Dose: Not Given Silver Sulfadiazine (Silvadene 1% 25 Gm) 0 gm TP BID [facility] Sodium Hypochlorite (Dakins Solution 0.5%) 500 ml TOP DAILY [facility] Last Admin: 11/19/17 11:47 Dose: Not Given Physical Exam - Constitutional Appears: Non-toxic, No Acute Distress, Chronically Ill - Extremities Exam Additional comments: lower extremity focused exam: vasc:DP and PT pulses non-palpable. CFT > 3 seconds to all digits. Skin temperature warm to cool from proximal to distal. neuro:unable to assess derm:unstageable pressure ulcer noted to the medial aspect of left heel measuring approximately 4 cm by 3.5 cm with stable eschar, no malodor, no drainage noted. skin on feet is diffusely xerotic ortho: no tenderness on palpation to left heel ulcer - Neurological Exam Neurological exam: Alert - Psychiatric Exam Psychiatric exam: Normal Affect, Normal Mood Results - Vital Signs Recent Vital Signs: Last Vital Signs Temp 97.6 F 11/19/17 12:00 Pulse 71 11/19/17 12:00 Resp 18 11/19/17 12:00 BP 148/84 11/19/17 12:00 Pulse Ox 97 11/19/17 06:00 - Labs Result Diagrams: 11/19/17 06:30 11/19/17 06:30 Labs: Laboratory Results - last 24 hr 11/17/17 11/18/17 11/18/17 13:30 06:30 12:30 WBC RBC Hgb Hct MCV MCH MCHC RDW Plt Count MPV Gran % Lymph % (Auto) [place] % (Auto) Eos % (Auto) Baso % (Auto) Gran # Lymph # (Auto) [place] # (Auto) Eos # (Auto) Baso # (Auto) APTT 65.2 H Sodium Potassium Chloride Carbon Dioxide Anion Gap BUN Creatinine Est GFR ( Amer) Est GFR (Non-Af Amer) Random Glucose Calcium Total Bilirubin AST ALT Alkaline Phosphatase Total Protein Albumin Globulin Albumin/Globulin Ratio RBC Folate 1400 Blood Type B POSITIVE Antibody Screen Negative Crossmatch See Detail BBK History Checked Patient has bt 11/18/17 11/18/17 11/19/17 13:20 13:20 06:30 WBC 16.6 H RBC 3.41 L Hgb 7.8 L Hct 25.4 L MCV 74.5 L MCH 22.9 L MCHC 30.7 L RDW 19.7 H Plt Count 365 MPV 9.1 Gran % Lymph % (Auto) [place] % (Auto) Eos % (Auto) Baso % (Auto) Gran # Lymph # (Auto) [place] # (Auto) Eos # (Auto) Baso # (Auto) APTT 65.3 H 70.5 H Sodium Potassium Chloride Carbon Dioxide Anion Gap BUN Creatinine Est GFR ( Amer) Est GFR (Non-Af Amer) Random Glucose Calcium Total Bilirubin AST ALT Alkaline Phosphatase Total Protein Albumin Globulin Albumin/Globulin Ratio RBC Folate Blood Type Antibody Screen Crossmatch BBK History Checked 11/19/17 11/19/17 06:30 06:30 WBC 19.9 H RBC 4.08 Hgb 9.7 L Hct 30.6 L MCV 75.0 L MCH 23.8 L MCHC 31.7 RDW 19.3 H Plt Count 401 MPV 9.9 Gran % 82.3 H Lymph % (Auto) 12.2 L [place] % (Auto) 4.8 Eos % (Auto) 0.6 L Baso % (Auto) 0.1 Gran # 16.35 H Lymph # (Auto) 2.4 [place] # (Auto) 1.0 H Eos # (Auto) 0.1 Baso # (Auto) 0.02 APTT Sodium 142 Potassium 4.4 Chloride 107 Carbon Dioxide 26 Anion Gap 14 BUN 16 Creatinine 0.7 L Est GFR ( Amer) > 60 Est GFR (Non-Af Amer) > 60 Random Glucose 73 Calcium 8.1 L Total Bilirubin 0.6 AST 48 ALT 54 Alkaline Phosphatase 125 Total Protein 5.9 Albumin 2.6 L Globulin 3.3 Albumin/Globulin Ratio 0.8 L RBC Folate Blood Type Antibody Screen Crossmatch BBK History Checked Assessment & Plan - Assessment and Plan (Free Text) Assessment: 87 year old male with left heel pressure ulcer Plan: patient examined and evaluated discussed in detail with attending, Dr. Hewitt labs, chart, vitals reviewed; WBC 19.9, afebrile heel offloading boots ordered, to be worn at all times while patient in bed left heel cleansed with sterile saline, dressed with 4x4, abd, dsd lac-hydrin ordered to be applied to feet b/l left heel culture klebsiella pneumoniae, gram + cocci cont IV abx per ID podiatry will cont to follow patient while in house <Judith Hewitt - Last Filed: 11/19/17 20:22> Meds - Medications Medications: Current Medications Acetaminophen (Tylenol 650mg/20.3ml Solution Ud) 650 mg PEG Q6H PRN PRN Reason: Pain, Mild (1-3) Aspirin (Ecotrin) 81 mg PO DAILY [facility] Last Admin: 11/19/17 11:45 Dose: 81 mg Collagenase (Santyl) 1 gm TOP BID [facility] Last Admin: 11/19/17 11:48 Dose: Not Given Donepezil HCl (Aricept) 5 mg PEG HS [facility] Last Admin: 11/18/17 21:11 Dose: 5 mg Linezolid (Zyvox 600mg/300ml D5w) 600 mg in 300 mls @ 200 mls/hr IVPB Q12 RYLIE PRN Reason: Protocol Stop: 11/24/17 06:42 Last Admin: 11/19/17 11:48 Dose: 200 mls/hr Meropenem (Merrem Iv 1 Gm Premix) 50 mls @ 100 mls/hr IVPB Q8 RYLIE PRN Reason: Protocol Stop: 11/24/17 06:46 Last Admin: 11/19/17 15:57 Dose: 100 mls/hr Heparin Sodium/Sodium Chloride (Heparin 41789 Units/250ml 1/2 Normal Saline) 25 ,000 units in 250 mls @ 11.431 mls/hr IV .[id number] PRN; Protocol; 18 UNITS/KG/HR PRN Reason: ADJUST RATE PER PROTOCOL Last Admin: 11/19/17 05:56 Dose: 14.8 units/kg/hr, 9.4 mls/hr Sodium Chloride (Sodium Chloride 0.45%) 1,000 mls @ 80 mls/hr IV .[id number] [facility] Last Admin: 11/19/17 06:11 Dose: 80 mls/hr Iron Sucrose 100 mg/ Sodium (Chloride) 105 mls @ 210 mls/hr IVPB DAILY [facility] Stop: 11/21/17 10:01 Last Admin: 11/19/17 14:50 Dose: 210 mls/hr Lactic Acid (Lac-Hydrin 12% Lotion (225 G)) 0 gm EXT DAILY [facility] Levalbuterol HCl (Xopenex) 0.63 mg IH [id number] PRN PRN Reason: Shortness of Breath Losartan Potassium (Cozaar) 25 mg PEG DAILY [facility] Last Admin: 11/19/17 11:45 Dose: 25 mg Morphine Sulfate (Morphine) 2 mg IVP Q4H PRN PRN Reason: Pain, severe (8-10) Last Admin: 11/18/17 23:25 Dose: 2 mg Pantoprazole Sodium (Protonix Inj) 40 mg IVP DAILY [facility] Last Admin: 11/19/17 11:45 Dose: 40 mg Saliva Substitute (Saliva Substitute) 2 ml PO Q2H [facility] Last Admin: 11/19/17 14:50 Dose: 2 ml Silver Sulfadiazine (Silvadene 1% 25 Gm) 0 gm TP BID [facility] Last Admin: 11/19/17 13:39 Dose: Not Given Sodium Hypochlorite (Dakins Solution 0.5%) 500 ml TOP DAILY [facility] Last Admin: 11/19/17 11:47 Dose: Not Given Results - Vital Signs Recent Vital Signs: Last Vital Signs Temp 98 F 11/19/17 18:00 Pulse 80 11/19/17 18:00 Resp 18 11/19/17 18:00 BP 150/75 11/19/17 18:00 Pulse Ox 95 11/19/17 18:00 - Labs Result Diagrams: 11/19/17 06:30 11/19/17 06:30 Labs: Laboratory Results - last 24 hr 11/19/17 11/19/17 11/19/17 06:30 06:30 06:30 WBC 19.9 H RBC 4.08 Hgb 9.7 L Hct 30.6 L MCV 75.0 L MCH 23.8 L MCHC 31.7 RDW 19.3 H Plt Count 401 MPV 9.9 Gran % 82.3 H Lymph % (Auto) 12.2 L [place] % (Auto) 4.8 Eos % (Auto) 0.6 L Baso % (Auto) 0.1 Gran # 16.35 H Lymph # (Auto) 2.4 [place] # (Auto) 1.0 H Eos # (Auto) 0.1 Baso # (Auto) 0.02 APTT 70.5 H Sodium 142 Potassium 4.4 Chloride 107 Carbon Dioxide 26 Anion Gap 14 BUN 16 Creatinine 0.7 L Est GFR ( Amer) > 60 Est GFR (Non-Af Amer) > 60 Random Glucose 73 Calcium 8.1 L Total Bilirubin 0.6 AST 48 ALT 54 Alkaline Phosphatase 125 Total Protein 5.9 Albumin 2.6 L Globulin 3.3 Albumin/Globulin Ratio 0.8 L Attending/Attestation - Attestation I have personally seen and examined this patient.: No I have fully participated in the care of the patient.: No I have reviewed all pertinent clinical information: No
--- NOTE | 2017-11-19 12:40 | CP.PCM.PN ---
Subjective - Date & Time of Evaluation Date of Evaluation: 11/19/17 Time of Evaluation: 09:45 - Subjective Subjective: Patient is still weak-looking, no fevers, no diarrhea. Objective - Vital Signs/Intake and Output Vital Signs (last 24 hours): Temp Pulse Resp BP Pulse Ox 98.2 F 78 20 149/58 L 97 11/19/17 06:00 11/19/17 06:00 11/19/17 06:00 11/19/17 06:00 11/19/17 06:00 Intake and Output: 11/19/17 11/19/17 06:59 18:59 Intake Total 1575 Output Total 500 Balance 1075 - Medications Medications: Current Medications Acetaminophen (Tylenol 650mg/20.3ml Solution Ud) 650 mg PEG Q6H PRN PRN Reason: Pain, Mild (1-3) Aspirin (Ecotrin) 81 mg PO DAILY [facility] Last Admin: 11/18/17 12:08 Dose: 81 mg Collagenase (Santyl) 1 gm TOP BID [facility] Last Admin: 11/18/17 21:13 Dose: Not Given Donepezil HCl (Aricept) 5 mg PEG HS [facility] Last Admin: 11/18/17 21:11 Dose: 5 mg Linezolid (Zyvox 600mg/300ml D5w) 600 mg in 300 mls @ 200 mls/hr IVPB Q12 RYLIE PRN Reason: Protocol Stop: 11/24/17 06:42 Last Admin: 11/18/17 21:26 Dose: 200 mls/hr Meropenem (Merrem Iv 1 Gm Premix) 50 mls @ 100 mls/hr IVPB Q8 RYLIE PRN Reason: Protocol Stop: 11/24/17 06:46 Last Admin: 11/19/17 05:44 Dose: 100 mls/hr Heparin Sodium/Sodium Chloride (Heparin 74221 Units/250ml 1/2 Normal Saline) 25 ,000 units in 250 mls @ 11.431 mls/hr IV .[id number] PRN; Protocol; 18 UNITS/KG/HR PRN Reason: ADJUST RATE PER PROTOCOL Last Admin: 11/19/17 05:56 Dose: 14.8 units/kg/hr, 9.4 mls/hr Sodium Chloride (Sodium Chloride 0.45%) 1,000 mls @ 80 mls/hr IV .[id number] [facility]YLIE Last Admin: 11/19/17 06:11 Dose: 80 mls/hr Levalbuterol HCl (Xopenex) 0.63 mg IH [id number] PRN PRN Reason: Shortness of Breath Losartan Potassium (Cozaar) 25 mg PEG DAILY [facility] Last Admin: 11/18/17 12:08 Dose: 25 mg Morphine Sulfate (Morphine) 2 mg IVP Q4H PRN PRN Reason: Pain, severe (8-10) Last Admin: 11/18/17 23:25 Dose: 2 mg Pantoprazole Sodium (Protonix Inj) 40 mg IVP DAILY [facility] Last Admin: 11/18/17 12:06 Dose: 40 mg Saliva Substitute (Saliva Substitute) 2 ml PO Q2H [facility] Last Admin: 11/19/17 05:47 Dose: Not Given Sodium Hypochlorite (Dakins Solution 0.5%) 500 ml TOP DAILY [facility] Last Admin: 11/18/17 23:26 Dose: 1 applic - Labs Labs: 11/18/17 13:20 11/18/17 06:30 PT 14.8 SECONDS (9.4-12.5) H 11/16/17 18:05 INR 1.29 (0.93-1.08) H 11/16/17 18:05 APTT 65.3 Seconds (25.1-36.5) H 11/18/17 13:20 - Constitutional Appears: Chronically Ill - Head Exam Head Exam: NORMAL INSPECTION - Respiratory Exam Respiratory Exam: Decreased Breath Sounds - Cardiovascular Exam Cardiovascular Exam: +S1, +S2 - GI/Abdominal Exam GI & Abdominal Exam: Soft. absent: Tenderness Assessment and Plan - Assessment and Plan (Free Text) Plan: Assessment severe sepsis due to left gluteal necrotizing fasciitis S/P debridement POD #2 history of severe sepsis S/P acute renal failure due to intra-abdominal infection with ascending colitis in this patient who developed right sided pneumohydrothorax S/P right sided chest tube placement history of severe sepsis with acute renal failure due to HCAP TIA COPD dementia HTN osteoarthritis chronic CHF cataracts Plan continue Zyvox and Merrem day32 pending OR cultures - follow up further plans of Surgery (for possible further subsequent debridement in the coming days) will continue to monitor clinically
[2017-11-19] MEDS: Silver Sulfadiazine 1% Cream (25 gm) TP SCH (13:39)
[2017-11-19] MEDS ORDERED: Iron Sucrose 100 mg/5 ml Inj IVP SCH (15:00)
--- NOTE | 2017-11-19 18:17 | US ---
HISTORY: Leg pain and swelling. Evaluate for DVT PHYSICIAN(S): Antony Alex MD. TECHNIQUE: Duplex sonography and color-flow Doppler with graded compression were used to evaluate the deep venous systems of both lower extremities. The exam is limited by edema FINDINGS: The visualized deep venous systems of both lower extremities are sonographically normal and compressible. Normal wave forms and augmentation are seen. There is no sonographic evidence for deep venous thrombosis in the visualized segments of both lower extremities. IMPRESSION: No sonographic evidence for deep venous thrombosis in the visualized segments of both lower extremities.
--- NOTE | 2017-11-19 18:45 | PN ---
DATE: 11/18/2017 SUBJECTIVE: Patient seems dressing is being changed. Patient had getting blood transfusions because of drop in his hemoglobin. Otherwise, he seems comfortable. He has no pain. He recognizes me and he is stable. Patient does have chronic dementia. PHYSICAL EXAMINATION: VITAL SIGNS: His temperature 98.2, heart rate 78, blood pressure 149/58, respirations 20, and saturation 97%. HEAD AND NECK: Normal. No JVD. No thyromegaly. CHEST: Clear bilaterally. CARDIAC: First sound and second sound normal. ABDOMEN: Soft and nontender. EXTREMITIES: Left leg ulceration on the heel and there is mild edema. NEUROLOGIC: Patient is generally weak. Does not move. He has feeding tube. SKIN: Large decubitus ulcer with drainage in the rectal area and dressing change has been done. LABORATORY DATA: On the date here on 11/18/2017, shows sodium 143, potassium 4, chloride 109, bicarb 25. BUN 21, creatinine 0.8. Calcium 7.8, magnesium 2.5. AST and ALT are slightly lower at 63 and 68, and his alk phos is 124. Also, patient has white count 27.1, hemoglobin 6.9, hematocrit 23.2, and platelets 402. IMPRESSION AND PLAN: 1. Acute drop in hemoglobin, probably bleeding. We will transfuse. Continue current management. Hematology, Dr. Ni seeing the patient. We will get Dr. Antony Alex for [place] filter. Continue transfusions and monitor his coagulation. IV heparin, hold off from that and we will discuss with other consultants. 2. Acute sepsis, high white count. Patient has fever of 99.9 and with clinical pictures, patient did have sepsis due to large decubitus ulcer, possible necrotizing fascitis, status post debridement and drainage. Continue local wound care. Continue IV antibiotics. Patient is getting Zyvox and getting also meropenem IV. Continue current therapy. 3. Chronic obstructive pulmonary disease, dementia, and hypertension. We will monitor him clinically. We will resume medications as tolerated. We will continue Aricept, Cozaar. Resume IV fluids and monitor H and H. Continue current therapy. Cody Aguilar MD [facility] # [id number]
[2017-11-19] MEDS ORDERED: Silver Nitrate Topical - Stick TOP ONE (22:48)
--- NOTE | 2017-11-20 01:52 | HP ---
DATE OF EXAM: 11/17/2017 REASON FOR EMERGENCY ROOM VISIT: Large deep decubitus ulceration. HISTORY OF PRESENT ILLNESS: An 87-year-old male, history of hypertension, dementia, bedridden, has a feeding tube, history of stroke. Daughter brought the picture of the patient for his sacral decubitus wound and upon that, I advised to go to the Emergency Room. There is no nausea, no vomiting mentioned. Patient was seen in the hospital. He seems alert, awake. Otherwise, no distress. PAST MEDICAL HISTORY: As I mentioned, CVA, feeding tube, dementia, hypertension, hypercholesterolemia, COPD, history of recurrent pneumonia. ALLERGY: HE HAS NO KNOWN ALLERGY. SOCIAL HISTORY: He lives with his daughter, very supportive. No alcohol except in the past he drank wine sometimes, but otherwise he has no smoking, no other drug abused. REVIEW OF SYSTEMS: The patient is bedridden, has a large decubitus ulcer. He does have memory loss. He does have dysphagia, PEG tube feedings. Does not move quads, severe arthritis, generalized weakness, history of previous stroke. MEDICATIONS AT HOME: He does take Protonix 40, Cozaar one a day, Aricept 5 mg a day, Lipitor 40 once a day, aspirin 81 mg once a day, vitamin B complex once a day, hydralazine 10 mg four times a day. PHYSICAL EXAMINATION: VITAL SIGNS: Temperature 98, heart rate 96, blood pressure 133/58, respirations 20, saturations 99%. HEAD AND NECK: Normal. No JVD. No thyromegaly. CHEST: Clear bilaterally. CARDIAC: First sound and second sound normal. ABDOMEN: Soft. EXTREMITIES: Edema. BACK: There is large decubitus ulcer, deep, with slight eschar and it is 5 cm deep. NEUROLOGIC: Patient is awake, alert. Does not move much. General weakness and left-sided weakness. LABORATORY STUDY: Initial white count when he came in 33,000, hemoglobin 9.3, hematocrit 29, platelets 443. His ABGs showed pH 7.41, pCO2 of 46, bicarb 46, and pO2 of 69. PT/PTT: When he came in, PT 14.8, PT/INR 1.29, PTT 30.6. Other laboratory which includes chemistry showed sodium 145, potassium 4.6, chloride 110, bicarb 26, BUN 29, creatinine 0.8, blood sugar 136, calcium 7.7. Iron studies 10, which is low; saturation is 4, which is low. AST and ALT are elevated ____, alk phos 132. Patient also had a CT abdomen and pelvis, which shows there is air in the left gluteal soft tissue and right ischiorectal fossa. Also suspicious left gluteal cellulitis. Cannot exclude necrotizing fascitis of soft tissue. Also air overlying the coccyx. Could be relation to the wound. Air extends to the level of the bones. Stage IV decubitus ulcers appear. Findings also suspicious for deep vein thrombosis bilateral femoral veins. IMPRESSION AND PLAN: 1. This is an 87-year-old male, came in with large decubitus ulcers, stage IV, reaches the bone, extending to the gluteal area. There is air in the wound, possible necrotizing fascitis. Patient has white count, 33,000. He was lethargic when he initially came to the ER. We are going to get admit the patient for IV antibiotic, vancomycin, Zosyn. ID consult with Dr. Zayas. Surgical consult with Dr. Vizcaino. 2. Patient does have acute deep vein thrombosis. We are going to put the patient on IV heparin. Monitor his hemoglobin and hematocrit. We will get a Hematology consult and we will follow up clinically. Patient is having a feeding tube also; we will resume that. Patient will be admitted to ICU. We will get Dr. Morgan Vizcaino's surgical consult. We are also going to get Dr. Ni because of the anemia and deep vein thrombosis. We will get consultation of Hematology/Oncology. We will continue current therapy, continue IV fluid. Monitor lab in the morning. Pancultures. Cody Aguilar MD
[2017-11-20] MEDS: Meropenem IV 1 gm in NS 50 ML IVPB SCH ×3 (05:12→23:22)
[2017-11-20] MEDS: Saliva Substitute 44.3 ML PO SCH ×13 (05:13→23:26)
[2017-11-20 07:15] LABS: BASO # 0.04 K/mm3 (0.0-2.0); BASO % 0.2 % (0.0-3.0); EOS # 0.1 (0.0-0.7); EOS % 0.5 % (1.5-5.0); GRAN # 18.77 (1.4-6.5); HEMOGLOBIN 10.5 g/dL (14.0-18.0); LYMPH % 8.9 % (22.0-35.0); MEAN CELL VOLUME 74.5 fl (80.0-105.0); MEAN CORPUSCULAR HEMOGLOBIN 23.6 pg (25.0-35.0); MEAN CORPUSCULAR HGB CONC 31.7 g/dl (31.0-37.0); MEAN PLATELET VOLUME 9.9 fl (7.0-11.0); MONO % 4.4 % (1.0-6.0); RBC 4.44 10^6/uL (3.5-6.1); RED CELL DISTRIBUTION WIDTH 19.8 % (11.5-14.5); WHITE BLOOD COUNT 21.8 10^3/ul (4.5-11.0)
[2017-11-20 07:50] LABS: BLOOD UREA NITROGEN 13 mg/dL (7-21); CALCIUM 7.8 mg/dL (8.4-10.5); GFR AFRICAN-AMERICAN > 60; GFR NON-AFRICAN AMERICAN > 60
--- NOTE | 2017-11-20 07:58 | CP.PCM.PN ---
Subjective - Date & Time of Evaluation Date of Evaluation: 11/20/17 Time of Evaluation: 07:15 - Subjective Subjective: General Surgery Note for Dr. Vizcaino Patient seen and examined at bedside. No acute event overnight. Patient is awake and responding to verbal stimuli. Nursing is handling dressing changes BID. Patient will be going back to OR on Monday morning for further debridement. Objective - Vital Signs/Intake and Output Vital Signs (last 24 hours): Temp Pulse Resp BP Pulse Ox 98.4 F 86 20 169/73 H 96 11/20/17 06:00 11/20/17 06:00 11/20/17 06:00 11/20/17 06:00 11/20/17 06:00 Intake and Output: 11/20/17 11/20/17 06:59 18:59 Intake Total 1068 Output Total 1700 Balance -632 - Medications Medications: Current Medications Acetaminophen (Tylenol 650mg/20.3ml Solution Ud) 650 mg PEG Q6H PRN PRN Reason: Pain, Mild (1-3) Aspirin (Ecotrin) 81 mg PO DAILY [facility] Last Admin: 11/19/17 11:45 Dose: 81 mg Collagenase (Santyl) 1 gm TOP BID [facility]IE Last Admin: 11/19/17 11:48 Dose: Not Given Donepezil HCl (Aricept) 5 mg PEG HS [facility] Last Admin: 11/19/17 21:34 Dose: 5 mg Linezolid (Zyvox 600mg/300ml D5w) 600 mg in 300 mls @ 200 mls/hr IVPB Q12 RYLIE PRN Reason: Protocol Stop: 11/24/17 06:42 Last Admin: 11/19/17 21:35 Dose: 200 mls/hr Meropenem (Merrem Iv 1 Gm Premix) 50 mls @ 100 mls/hr IVPB Q8 RYLIE PRN Reason: Protocol Stop: 11/24/17 06:46 Last Admin: 11/20/17 05:12 Dose: 100 mls/hr Heparin Sodium/Sodium Chloride (Heparin 63910 Units/250ml 1/2 Normal Saline) 25 ,000 units in 250 mls @ 11.431 mls/hr IV .[id number] PRN; Protocol; 18 UNITS/KG/HR PRN Reason: ADJUST RATE PER PROTOCOL Last Admin: 11/19/17 05:56 Dose: 14.8 units/kg/hr, 9.4 mls/hr Sodium Chloride (Sodium Chloride 0.45%) 1,000 mls @ 80 mls/hr IV .[id number] [facility] Last Admin: 11/19/17 21:50 Dose: 80 mls/hr Iron Sucrose 100 mg/ Sodium (Chloride) 105 mls @ 210 mls/hr IVPB DAILY [facility] Stop: 11/21/17 10:01 Last Admin: 11/19/17 14:50 Dose: 210 mls/hr Lactic Acid (Lac-Hydrin 12% Lotion (225 G)) 0 gm EXT DAILY [facility] Levalbuterol HCl (Xopenex) 0.63 mg IH [id number] PRN PRN Reason: Shortness of Breath Losartan Potassium (Cozaar) 25 mg PEG DAILY [facility] Last Admin: 11/19/17 11:45 Dose: 25 mg Morphine Sulfate (Morphine) 2 mg IVP Q4H PRN PRN Reason: Pain, severe (8-10) Last Admin: 11/18/17 23:25 Dose: 2 mg Pantoprazole Sodium (Protonix Inj) 40 mg IVP DAILY [facility] Last Admin: 11/19/17 11:45 Dose: 40 mg Saliva Substitute (Saliva Substitute) 2 ml PO Q2H [facility] Last Admin: 11/20/17 05:15 Dose: 1 ml Silver Sulfadiazine (Silvadene 1% 25 Gm) 0 gm TP BID [facility] Last Admin: 11/19/17 13:39 Dose: Not Given Sodium Hypochlorite (Dakins Solution 0.5%) 500 ml TOP DAILY [facility] Last Admin: 11/19/17 11:47 Dose: Not Given - Labs Labs: 11/20/17 06:30 11/20/17 06:30 PT 14.8 SECONDS (9.4-12.5) H 11/16/17 18:05 INR 1.29 (0.93-1.08) H 11/16/17 18:05 APTT 70.5 Seconds (25.1-36.5) H 11/19/17 06:30 - Constitutional Appears: No Acute Distress - Head Exam Head Exam: ATRAUMATIC, NORMOCEPHALIC - ENT Exam ENT Exam: Mucous Membranes Moist - Respiratory Exam Respiratory Exam: NORMAL BREATHING PATTERN - Cardiovascular Exam Cardiovascular Exam: REGULAR RHYTHM - GI/Abdominal Exam GI & Abdominal Exam: Soft, Normal Bowel Sounds - Extremities Exam Additional comments: heel boots left heel wound - Back Exam Additional comments: dressing in place - clean dry and intact - Neurological Exam Neurological Exam: Awake - Psychiatric Exam Psychiatric exam: Flat Affect - Skin Skin Exam: Dry, Warm Assessment and Plan - Assessment and Plan (Free Text) Assessment: 87 M with sacral wound necrotizing fasciitis -Stop Hep drip, starrt Lovenox 40 mg SC daily -OR monday for debridement -Dressing changes BID by Nursing -Continue IV antibiotics -Discussed with Dr. Carrillo Watkins PGY1
--- NOTE | 2017-11-20 07:58 | CON ---
DATE: 11/18/2017 This is Mr. Harrison's hospital visit on the telemetry floor. For Dr. Ni. CHIEF COMPLAINT: New DVT ?. HISTORY OF PRESENT ILLNESS: The patient is an 87-year-old cachectic male, [place] speaking, seen lying awake in bed, is nonverbal except for minimal use of words upon questioning.; admitted by the emergency room for increasing lethargy, severe back pain with large decubitus ulcer noted. The patient has a history of CVA with dementia, and is bedridden with PEG feedings, his source of nutrition. At present, to questioning, he responds positively when asked if there is pain, with the pain to his back side and abdomen to questioning. The patient's testing revealed suspicious findings for DVT in the bilateral femoral veins with thrombus appearing partially occlusive on a CT of the abdomen done 2 days prior. The patient has since then started on aspirin 81 mg and IV heparin with his hemoglobin dropping from the admission value of 8.3 to 6.9 with the patient presently receiving 1 unit of packed red blood cells in transfusion with 2 units on hold. The patient has been ordered morphine 2 mg IVP for his pain with apparently none given at this point. This will be questioned and recommended for treatment. ALLERGIES: NO KNOWN ALLERGIES. MEDICATIONS: At this point, include IV fluid 80 mL an hour, Aricept, Cozaar, Dakin's solution, Ecotrin, heparin IV, meropenem, morphine as above, Protonix, Santyl which is collagenase, silver nitrate stick which has been discontinued, Xopenex nebulizer treatments and linezolid as per Dr. Pro, Infectious Disease. PAST MEDICAL HISTORY: Significant for CVA from which the patient is bedridden, dementia, COPD, hypertension, CHF, DJD, recurrent pneumonia, gait disorder, generalized weakness, history of cerebral bleed, status post PEG insertion earlier this year, dysphagia, history of hydropneumothorax as well as severe sepsis history. FAMILY AND SOCIAL HISTORY: Lives with his family. Nonsmoker, non-ethanolic. REVIEW OF SYSTEMS: A 12-point review of systems was done, which is negative to questioning except for items mentioned in the history of present illness. The patient is a poor historian with his history gleaned from prior admissions and from questioning at the bedside and from nursing staff. OBJECTIVE AND PHYSICAL EXAMINATION: VITAL SIGNS: Temperature 97.7, pulse 89, respirations 18, blood pressure 138/71, with a pulse ox of 100%. HEENT: Tongue is dry and coated, for which oral hygiene will be recommended as the patient is n.p.o. except with PEG placement. He is essentially nonverbal. NECK: Supple. No JVD. HEART: Regular rate. Occasional ectopic beat. LUNGS: Decreased breath sounds. Occasional rhonchi. ABDOMEN: Soft, with a viable PEG noted. Nontender. EXTREMITIES: Contractures of the lower extremities with atrophy of the muscles there. SKIN: Warm and dry, with a large decubitus dressed, with the dressing dry and intact at the sacral area. NEUROLOGIC: He is awake, with the patient able to respond to questions in [place] with minimal response available. Patient had EKG done 2 days prior, it showed sinus rhythm with premature ventricular complexes, IRBBB, ST-T wave changes consistent with ischemia, prolonged QTc, no change. Patient had a chest x-ray done 2 days prior, it was read as no active pulmonary disease. Patient had a CAT scan of his abdomen and pelvis done 2 days prior, it was read as air in the left gluteal soft tissues and the right ischiorectal fossa, also findings suspicious of left gluteal cellulitis, cannot exclude necrotizing soft tissue infection, area overlying the coccyx, which could be related to patient's wound. The area extends to the level of the bone, stage IV decubitus ulcer, could have this appearance or findings suspicious for deep venous thrombosis involving the bilateral femoral veins, the thrombus appears occlusive, findings which can be necrotic resolving clot. Lower extremity venous ultrasound recommended. Patient also had a surgical evaluation by Dr. Vizcaino with the patient's sacral decubitus ulcer noted along with necrotizing fasciitis. This was done on 11/16/2017, with debridement of the sacral decubitus ulcer and necrotizing fasciitis of the left gluteus and perineum. Cultures were sent with postop condition noted as poor with a [employer] [place] [employer] drain left in the perineum. ASSESSMENT: For this patient is that of stage IV decubitus ulcer; necrotizing fasciitis; severe sepsis; status post debridement, postop day 1; severe transient ischemic attack; cachexia; dementia; symptomatic anemia; new deep vein thrombosis suspect, testing pending; hypertension; degenerative joint disease; chronic congestive heart failure; intractable pain. LABORATORY DATA: Patient's labs were also reviewed with white blood cell count today is 16.6. On admission, white blood cell count was 36. His hemoglobin on admission was 8.3, it is presently 7.8 with the low of 6.9 earlier today. He is on heparin with a PTT of 65.3. His chem metabolic panel shows an AST of 63, ALT of 68 with a calcium value of 7.8. His blood cultures were negative at 24 hours with a wound culture pending. PLAN: The plan for this patient is to do his Dopplers of his lower extremities, which have been on hold due to transfusion being given. We will continue nasal cannula oxygen. Ultrasound of the abdomen is also pending with surgical wound care as per Dr. Vizcaino. He is being transfused 1 unit of packed red blood cells. We will transfuse an additional unit as indicated with his labs to be rechecked in the a.m. We will also analgesics to be given with the patient to be asked in [place] if he has pain with the pain medications to be given at that time. This is a complex patient with a comprehensive medically necessary and appropriate visit carried out in excess of 1 hour [id number] time with the chart reviewed at length with the nursing staff spoken to regarding the patient's care along with conversation with Dr. Ni regarding his recommendations. Prognosis for this patient is guarded. We will monitor clinically and with labs. Will Hartley MD
--- NOTE | 2017-11-20 08:07 | CP.PCM.PN ---
Subjective - Date & Time of Evaluation Date of Evaluation: 11/20/17 Time of Evaluation: 08:07 - Subjective Subjective: Hematology-Oncology Progress note for Dr. Ni Patient seen and examined at bedside. Patient afebrile with no acute events overnight as per nursing. Patient is bed bound. PEG tube in place. s/p 2U PRBC transfusion. ROS unobtainable secondary to clinical condition. Objective - Vital Signs/Intake and Output Vital Signs (last 24 hours): Temp Pulse Resp BP Pulse Ox 98.4 F 86 20 169/73 H 96 11/20/17 06:00 11/20/17 06:00 11/20/17 06:00 11/20/17 06:00 11/20/17 06:00 Intake and Output: 11/20/17 11/20/17 06:59 18:59 Intake Total 1068 Output Total 1700 Balance -632 - Medications Medications: Current Medications Acetaminophen (Tylenol 650mg/20.3ml Solution Ud) 650 mg PEG Q6H PRN PRN Reason: Pain, Mild (1-3) Aspirin (Ecotrin) 81 mg PO DAILY [facility] Last Admin: 11/19/17 11:45 Dose: 81 mg Collagenase (Santyl) 1 gm TOP BID [facility] Last Admin: 11/19/17 11:48 Dose: Not Given Donepezil HCl (Aricept) 5 mg PEG HS [facility] Last Admin: 11/19/17 21:34 Dose: 5 mg Linezolid (Zyvox 600mg/300ml D5w) 600 mg in 300 mls @ 200 mls/hr IVPB Q12 [facility] PRN Reason: Protocol Stop: 11/24/17 06:42 Last Admin: 11/19/17 21:35 Dose: 200 mls/hr Meropenem (Merrem Iv 1 Gm Premix) 50 mls @ 100 mls/hr IVPB Q8 [facility] PRN Reason: Protocol Stop: 11/24/17 06:46 Last Admin: 11/20/17 05:12 Dose: 100 mls/hr Heparin Sodium/Sodium Chloride (Heparin 24352 Units/250ml 1/2 Normal Saline) 25 ,000 units in 250 mls @ 11.431 mls/hr IV .[id number] PRN; Protocol; 18 UNITS/KG/HR PRN Reason: ADJUST RATE PER PROTOCOL Last Admin: 11/19/17 05:56 Dose: 14.8 units/kg/hr, 9.4 mls/hr Sodium Chloride (Sodium Chloride 0.45%) 1,000 mls @ 80 mls/hr IV .[id number] [facility] Last Admin: 11/19/17 21:50 Dose: 80 mls/hr Iron Sucrose 100 mg/ Sodium (Chloride) 105 mls @ 210 mls/hr IVPB DAILY [facility] Stop: 11/21/17 10:01 Last Admin: 11/19/17 14:50 Dose: 210 mls/hr Lactic Acid (Lac-Hydrin 12% Lotion (225 G)) 0 gm EXT DAILY [facility] Levalbuterol HCl (Xopenex) 0.63 mg IH [id number] PRN PRN Reason: Shortness of Breath Losartan Potassium (Cozaar) 25 mg PEG DAILY [facility] Last Admin: 11/19/17 11:45 Dose: 25 mg Morphine Sulfate (Morphine) 2 mg IVP Q4H PRN PRN Reason: Pain, severe (8-10) Last Admin: 11/18/17 23:25 Dose: 2 mg Pantoprazole Sodium (Protonix Inj) 40 mg IVP DAILY [facility] Last Admin: 11/19/17 11:45 Dose: 40 mg Saliva Substitute (Saliva Substitute) 2 ml PO Q2H [facility] Last Admin: 11/20/17 05:15 Dose: 1 ml Silver Sulfadiazine (Silvadene 1% 25 Gm) 0 gm TP BID [facility] Last Admin: 11/19/17 13:39 Dose: Not Given Sodium Hypochlorite (Dakins Solution 0.5%) 500 ml TOP DAILY [facility] Last Admin: 11/19/17 11:47 Dose: Not Given - Labs Labs: 11/20/17 06:30 11/20/17 06:30 PT 14.8 SECONDS (9.4-12.5) H 11/16/17 18:05 INR 1.29 (0.93-1.08) H 11/16/17 18:05 APTT 70.5 Seconds (25.1-36.5) H 11/19/17 06:30 - Constitutional Appears: Chronically Ill - Eye Exam Eye Exam: Normal appearance. absent: Conjunctival injection, Scleral icterus - ENT Exam ENT Exam: Mucous Membranes Dry - Respiratory Exam Respiratory Exam: NORMAL BREATHING PATTERN. absent: Accessory Muscle Use, Respiratory Distress - Cardiovascular Exam Cardiovascular Exam: REGULAR RHYTHM, +S1, +S2 - GI/Abdominal Exam GI & Abdominal Exam: Soft - Extremities Exam Extremities Exam: absent: Pedal Edema Additional comments: multipodus boots in place - Neurological Exam Neurological Exam: Alert, Awake. absent: Oriented x3 - Psychiatric Exam Psychiatric exam: Flat Affect - Skin Skin Exam: Dry Assessment and Plan - Assessment and Plan (Free Text) Assessment: 87 yo male PMHx CHF, CVA, COPD, dementia, HTN admitted for sepsis secondary likely to sacral decubitus. Patient is POD#3 sacral ulcer debridement on IV antibiotics. Patient presented with anemia 7.2 Hgb dropped to 6.9. Now s/p 2U PRBC transfusion responded appropriately with Hgb 10.5 this AM. Iron panel low patient on IV iron. B12 and folate wnl. CT abd/pelvis reviewed. Patient was started on heparin gtt for suspected b/l DVT. Extremity u/s negative for b/l DVT ; recommend d/c heparin gtt in light of venous dopplers being negative. Surgery on board- reccs appreciated. Podiatry on board for- reccs appreciated. ID on board- reccs appreciated. Continue management as per primary. Heme-Onc will sign off at this time. Please reconsult as needed Discussed with Dr. Raine Avelar PGY2
--- NOTE | 2017-11-20 08:27 | OP ---
PROCEDURE DATE: 11/17/2017 PREOPERATIVE DIAGNOSES: Rule out necrotizing fascitis with sacral decubitus. POSTOPERATIVE DIAGNOSES: Rule out necrotizing fascitis with sacral decubitus, with an ischiorectal abscess. DESCRIPTION OF PROCEDURE: In the operating room, the patient was identified by name, name of the procedure, laterality, my tracey, and the consent form. Patient was admitted with a white count of 33. No other sources. CAT scan showing gas in the perirectal area. Patient was placed with the left side up, right side down, exposing the rectum and this area very nicely. After the successful timeout, the area was scoured out with a 15-blade and the culture grow aerobically and anaerobically. Superiorly on the left side towards to the gluteus, there was a tract. A counterincision was made. This area was irrigated with Dakin's, and dried, and a Andrew was placed [id number]. The gluteal area by the rectum and another area was found. This was irrigated, opened with a counterincision, and a [id number] Andrew was placed and sutured to itself. Long side of the rectum was seen on the CAT scan, it was gas, this was easily that was found going in about 6 to 7 cm, Red Rubber catheter with multiple holes, it was sutured in place nearby and clipped at the skin level . The area was cleaned, debrided, and all pockets were opened. The area was packed with Dakin's and they were continued to do that. Eventually were made. The CAT scan has not been reviewed. There seems to be a perforation in the mid portion of the rectum. Morgan Vizcaino MD
--- NOTE | 2017-11-20 09:01 | CP.PCM.PN ---
<Aman Allred - Last Filed: 11/20/17 08:57> Subjective - Date & Time of Evaluation Date of Evaluation: 11/20/17 Time of Evaluation: 09:01 - Subjective Subjective: Podiatry Progress Note for Dr. Hewitt 87M seen at bedside for a left foot heel ulceration. Patient suffers from dementia and is non-verbal during the entire examination. Per nursing, no acute overnight events. Multipodus boots noted to be in place. Objective - Vital Signs/Intake and Output Vital Signs (last 24 hours): Temp Pulse Resp BP Pulse Ox 98.4 F 86 20 169/73 H 96 11/20/17 06:00 11/20/17 06:00 11/20/17 06:00 11/20/17 06:00 11/20/17 06:00 Intake and Output: 11/20/17 11/20/17 06:59 18:59 Intake Total 1068 Output Total 1700 Balance -632 - Medications Medications: Current Medications Acetaminophen (Tylenol 650mg/20.3ml Solution Ud) 650 mg PEG Q6H PRN PRN Reason: Pain, Mild (1-3) Aspirin (Ecotrin) 81 mg PO DAILY [facility] Last Admin: 11/19/17 11:45 Dose: 81 mg Collagenase (Santyl) 1 gm TOP BID [facility] Last Admin: 11/19/17 11:48 Dose: Not Given Donepezil HCl (Aricept) 5 mg PEG HS [facility] Last Admin: 11/19/17 21:34 Dose: 5 mg Linezolid (Zyvox 600mg/300ml D5w) 600 mg in 300 mls @ 200 mls/hr IVPB Q12 [facility] PRN Reason: Protocol Stop: 11/24/17 06:42 Last Admin: 11/19/17 21:35 Dose: 200 mls/hr Meropenem (Merrem Iv 1 Gm Premix) 50 mls @ 100 mls/hr IVPB Q8 [facility] PRN Reason: Protocol Stop: 11/24/17 06:46 Last Admin: 11/20/17 05:12 Dose: 100 mls/hr Heparin Sodium/Sodium Chloride (Heparin 52278 Units/250ml 1/2 Normal Saline) 25 ,000 units in 250 mls @ 11.431 mls/hr IV .[id number] PRN; Protocol; 18 UNITS/KG/HR PRN Reason: ADJUST RATE PER PROTOCOL Last Admin: 11/19/17 05:56 Dose: 14.8 units/kg/hr, 9.4 mls/hr Iron Sucrose 100 mg/ Sodium (Chloride) 105 mls @ 210 mls/hr IVPB DAILY [facility] Stop: 11/21/17 10:01 Last Admin: 11/19/17 14:50 Dose: 210 mls/hr Lactic Acid (Lac-Hydrin 12% Lotion (225 G)) 0 gm EXT DAILY [facility] Levalbuterol HCl (Xopenex) 0.63 mg IH [id number] PRN PRN Reason: Shortness of Breath Losartan Potassium (Cozaar) 25 mg PEG DAILY [facility] Last Admin: 11/19/17 11:45 Dose: 25 mg Morphine Sulfate (Morphine) 2 mg IVP Q4H PRN PRN Reason: Pain, severe (8-10) Last Admin: 11/18/17 23:25 Dose: 2 mg Pantoprazole Sodium (Protonix Inj) 40 mg IVP DAILY [facility] Last Admin: 11/19/17 11:45 Dose: 40 mg Saliva Substitute (Saliva Substitute) 2 ml PO Q2H [facility] Last Admin: 11/20/17 05:15 Dose: 1 ml Silver Sulfadiazine (Silvadene 1% 25 Gm) 0 gm TP BID [facility] Last Admin: 11/19/17 13:39 Dose: Not Given Sodium Hypochlorite (Dakins Solution 0.5%) 500 ml TOP DAILY [facility] Last Admin: 11/19/17 11:47 Dose: Not Given - Labs Labs: 11/20/17 06:30 11/20/17 06:30 PT 14.8 SECONDS (9.4-12.5) H 11/16/17 18:05 INR 1.29 (0.93-1.08) H 11/16/17 18:05 APTT 70.5 Seconds (25.1-36.5) H 11/19/17 06:30 - Constitutional Appears: Well, Non-toxic, No Acute Distress - Head Exam Head Exam: ATRAUMATIC, NORMOCEPHALIC - Extremities Exam Additional comments: LE focused exam: Vasc: DP and PT pulses non-palpable b/l. CFT > 3 seconds to all digits. Skin temperature warm to cool from proximal to distal. No edema noted to b/l LE Neuro: Unable to assess due to patient's mental state Derm: Unstageable pressure ulcer noted to the medial aspect of left heel measuring approximately 4 cm by 3.5 cm with stable eschar, no malodor, no drainage noted. No underlying fluctuance noted. Skin on feet is diffusely xerotic MSK: No tenderness on palpation to left heel ulcer. No other gross deformities noted - Neurological Exam Neurological Exam: Alert, Awake, Oriented x3 - Psychiatric Exam Psychiatric exam: Normal Affect, Normal Mood Assessment and Plan - Assessment and Plan (Free Text) Assessment: 87 year old male with clinically stable, unstageable left heel pressure ulcer Plan: Patient seen and evaluated with attending Dr. Hewitt Afebrile, WBC 21.8. LE ulceration is unlikely source of leukocytosis 11/16 Wound cx: Klebsiella Pneumoniae, GP cocci 11/20: Left foot xray ordered to r/o OM to left heel; f/u results 11/20: FERNANDO/PVR studies ordered; f/u results Pending FERNANDO/PVR results, possible bedside debridement of ulceration site will be performed Wound dressed with santyl, ABD, DSD Podiatry will continue to follow while patient in house <Judith Hewitt - Last Filed: 11/20/17 10:03> Objective - Vital Signs/Intake and Output Vital Signs (last 24 hours): Temp Pulse Resp BP Pulse Ox 98.4 F 86 20 169/73 H 96 11/20/17 06:00 11/20/17 06:00 11/20/17 06:00 11/20/17 06:00 11/20/17 06:00 Intake and Output: 11/20/17 11/20/17 06:59 18:59 Intake Total 1068 Output Total 1700 Balance -632 - Medications Medications: Current Medications Acetaminophen (Tylenol 650mg/20.3ml Solution Ud) 650 mg PEG Q6H PRN PRN Reason: Pain, Mild (1-3) Aspirin (Ecotrin) 81 mg PO DAILY [facility] Last Admin: 11/19/17 11:45 Dose: 81 mg Collagenase (Santyl) 1 gm TOP BID [facility] Last Admin: 11/19/17 11:48 Dose: Not Given Donepezil HCl (Aricept) 5 mg PEG HS [facility] Last Admin: 11/19/17 21:34 Dose: 5 mg Enoxaparin Sodium (Lovenox) 40 mg SC DAILY [facility] PRN Reason: Protocol Linezolid (Zyvox 600mg/300ml D5w) 600 mg in 300 mls @ 200 mls/hr IVPB Q12 [facility] PRN Reason: Protocol Stop: 11/24/17 06:42 Last Admin: 11/19/17 21:35 Dose: 200 mls/hr Meropenem (Merrem Iv 1 Gm Premix) 50 mls @ 100 mls/hr IVPB Q8 [facility] PRN Reason: Protocol Stop: 11/24/17 06:46 Last Admin: 11/20/17 05:12 Dose: 100 mls/hr Iron Sucrose 100 mg/ Sodium (Chloride) 105 mls @ 210 mls/hr IVPB DAILY [facility] Stop: 11/21/17 10:01 Last Admin: 11/19/17 14:50 Dose: 210 mls/hr Lactic Acid (Lac-Hydrin 12% Lotion (225 G)) 0 gm EXT DAILY [facility] Levalbuterol HCl (Xopenex) 0.63 mg IH [id number] PRN PRN Reason: Shortness of Breath Losartan Potassium (Cozaar) 25 mg PEG DAILY [facility] Last Admin: 11/19/17 11:45 Dose: 25 mg Morphine Sulfate (Morphine) 2 mg IVP Q4H PRN PRN Reason: Pain, severe (8-10) Last Admin: 11/18/17 23:25 Dose: 2 mg Pantoprazole Sodium (Protonix Inj) 40 mg IVP DAILY [facility] Last Admin: 11/19/17 11:45 Dose: 40 mg Saliva Substitute (Saliva Substitute) 2 ml PO Q2H [facility] Last Admin: 11/20/17 05:15 Dose: 1 ml Silver Sulfadiazine (Silvadene 1% 25 Gm) 0 gm TP BID [facility] Last Admin: 11/19/17 13:39 Dose: Not Given Sodium Hypochlorite (Dakins Solution 0.5%) 500 ml TOP DAILY [facility] Last Admin: 11/19/17 11:47 Dose: Not Given - Labs Labs: 11/20/17 06:30 11/20/17 06:30 PT 14.8 SECONDS (9.4-12.5) H 11/16/17 18:05 INR 1.29 (0.93-1.08) H 11/16/17 18:05 APTT 47.9 Seconds (25.1-36.5) H 11/20/17 08:30 Attending/Attestation - Attestation I have personally seen and examined this patient.: Yes I have fully participated in the care of the patient.: Yes I have reviewed all pertinent clinical information, including history, physical exam and plan: Yes Notes (Text): 11/20/17 09:58 pt seen with boots in place dressing in place; I have reviewed chart and ordered the tests 11/20/17 10:02
[2017-11-20] MEDS: Dakin's Topical 0.5%-Full Strength (480 ml) TOP SCH (10:10)
[2017-11-20] MEDS: Enoxaparin 40 mg Syringe SC SCH (10:10)
[2017-11-20] MEDS: Linezolid 600 mg in D5W 300 ml 600 MG/300 ML BAG IVPB SCH ×2 (10:10→23:23)
[2017-11-20] MEDS: Ammonium Lactate 12% Lotion (225 g) EXT SCH (10:11)
[2017-11-20] MEDS: Silver Sulfadiazine 1% Cream (25 gm) TP SCH ×2 (10:11→17:28)
[2017-11-20] MEDS: Collagenase 250 Units/gm Ointment(30 gm) TOP SCH ×2 (10:13→17:27)
--- NOTE | 2017-11-20 12:38 | RAD ---
PROCEDURE: Left Foot Radiographs. HISTORY: ulcer of medial left heel, r/o OM COMPARISON: None. FINDINGS: BONES: Normal. No fracture. JOINTS: Normal. SOFT TISSUES: Normal. OTHER FINDINGS: None. IMPRESSION: Normal left foot radiographs.
--- NOTE | 2017-11-20 13:24 | CP.PCM.PN ---
Subjective - Date & Time of Evaluation Date of Evaluation: 11/20/17 Time of Evaluation: 10:10 - Subjective Subjective: Patient is groggy but arousable, no fevers, planned for surgery again on Monday. Objective - Vital Signs/Intake and Output Vital Signs (last 24 hours): Temp Pulse Resp BP Pulse Ox 98.4 F 86 20 169/73 H 96 11/20/17 06:00 11/20/17 06:00 11/20/17 06:00 11/20/17 06:00 11/20/17 06:00 Intake and Output: 11/20/17 11/20/17 06:59 18:59 Intake Total 1068 Output Total 1700 Balance -632 - Medications Medications: Current Medications Acetaminophen (Tylenol 650mg/20.3ml Solution Ud) 650 mg PEG Q6H PRN PRN Reason: Pain, Mild (1-3) Aspirin (Ecotrin) 81 mg PO DAILY [facility] Last Admin: 11/19/17 11:45 Dose: 81 mg Collagenase (Santyl) 1 gm TOP BID [facility] Last Admin: 11/19/17 11:48 Dose: Not Given Donepezil HCl (Aricept) 5 mg PEG HS [facility] Last Admin: 11/19/17 21:34 Dose: 5 mg Enoxaparin Sodium (Lovenox) 40 mg SC DAILY [facility] PRN Reason: Protocol Linezolid (Zyvox 600mg/300ml D5w) 600 mg in 300 mls @ 200 mls/hr IVPB Q12 [facility] PRN Reason: Protocol Stop: 11/24/17 06:42 Last Admin: 11/19/17 21:35 Dose: 200 mls/hr Meropenem (Merrem Iv 1 Gm Premix) 50 mls @ 100 mls/hr IVPB Q8 [facility] PRN Reason: Protocol Stop: 11/24/17 06:46 Last Admin: 11/20/17 05:12 Dose: 100 mls/hr Iron Sucrose 100 mg/ Sodium (Chloride) 105 mls @ 210 mls/hr IVPB DAILY [facility] Stop: 11/21/17 10:01 Last Admin: 11/19/17 14:50 Dose: 210 mls/hr Lactic Acid (Lac-Hydrin 12% Lotion (225 G)) 0 gm EXT DAILY [facility] Levalbuterol HCl (Xopenex) 0.63 mg IH [id number] PRN PRN Reason: Shortness of Breath Losartan Potassium (Cozaar) 25 mg PEG DAILY [facility] Last Admin: 11/19/17 11:45 Dose: 25 mg Morphine Sulfate (Morphine) 2 mg IVP Q4H PRN PRN Reason: Pain, severe (8-10) Last Admin: 11/18/17 23:25 Dose: 2 mg Pantoprazole Sodium (Protonix Inj) 40 mg IVP DAILY [facility] Last Admin: 11/19/17 11:45 Dose: 40 mg Saliva Substitute (Saliva Substitute) 2 ml PO Q2H [facility] Last Admin: 11/20/17 05:15 Dose: 1 ml Silver Sulfadiazine (Silvadene 1% 25 Gm) 0 gm TP BID [facility] Last Admin: 11/19/17 13:39 Dose: Not Given Sodium Hypochlorite (Dakins Solution 0.5%) 500 ml TOP DAILY [facility] Last Admin: 11/19/17 11:47 Dose: Not Given - Labs Labs: 11/20/17 06:30 11/20/17 06:30 PT 14.8 SECONDS (9.4-12.5) H 11/16/17 18:05 INR 1.29 (0.93-1.08) H 11/16/17 18:05 APTT 47.9 Seconds (25.1-36.5) H 11/20/17 08:30 - Constitutional Appears: Chronically Ill - Head Exam Head Exam: NORMAL INSPECTION - Respiratory Exam Respiratory Exam: Decreased Breath Sounds - Cardiovascular Exam Cardiovascular Exam: +S1, +S2 - GI/Abdominal Exam GI & Abdominal Exam: Soft. absent: Tenderness Assessment and Plan - Assessment and Plan (Free Text) Plan: Assessment severe sepsis due to left gluteal necrotizing fasciitis S/P debridement POD #3 history of severe sepsis S/P acute renal failure due to intra-abdominal infection with ascending colitis in this patient who developed right sided pneumohydrothorax S/P right sided chest tube placement history of severe sepsis with acute renal failure due to HCAP TIA COPD dementia HTN osteoarthritis chronic CHF cataracts Plan continue Zyvox and Merrem day 3 pending OR cultures (growing gram negative bacilli and gram positive cocci) - patient planned for repeat debridement on Monday will continue to monitor clinically
--- NOTE | 2017-11-20 21:39 | US ---
PROCEDURE: Lower extremity FERNANDO exam HISTORY: Peripheral vascular disease with pain and ulceration. Diabetes. Smoker. PHYSICIAN(S): Antony Alex MD. FINDINGS: The exam is limited by calcified vessels. The right resting FERNANDO is not obtainable. The left resting FERNANDO is unreliable, 0.89 The brachial systolic pressures are symmetric. The high thigh pressures and waveforms are relatively normal. There is a 30 mm gradient across the right knee. This is consistent with right distal SFA, popliteal, and/ or trifurcation disease. The left calf PVR waveform augments normally. The ankle and metatarsal waveforms are mildly blunted. This is consistent with left tibial disease. IMPRESSION: 1. Distal right SFA, popliteal, and/ or trifurcation disease. 2. Left tibial occlusive disease.
--- NOTE | 2017-11-21 01:18 | CP.PCM.PN ---
Subjective - Date & Time of Evaluation Date of Evaluation: 11/21/17 Time of Evaluation: 01:17 - Subjective Subjective: seen for runs of VTACH # 26 beats. Rx, AM labs(CBC,BMP,mag,phos) now +Trop +EKG. See my next note. Objective - Vital Signs/Intake and Output Vital Signs (last 24 hours): Temp Pulse Resp BP Pulse Ox 99.7 F H 90 18 137/74 98 11/21/17 00:01 11/21/17 00:01 11/21/17 00:01 11/21/17 00:01 11/21/17 00:01 Intake and Output: 11/20/17 11/21/17 18:59 06:59 Intake Total 0 Output Total 1100 Balance -1100 - Medications Medications: Current Medications Acetaminophen (Tylenol 650mg/20.3ml Solution Ud) 650 mg PEG Q6H PRN PRN Reason: Pain, Mild (1-3) Aspirin (Ecotrin) 81 mg PO DAILY [facility] Last Admin: 11/20/17 10:10 Dose: 81 mg Collagenase (Santyl) 1 gm TOP BID [facility] Last Admin: 11/20/17 17:27 Dose: 1 applic Donepezil HCl (Aricept) 5 mg PEG HS [facility] Last Admin: 11/20/17 23:22 Dose: 5 mg Enoxaparin Sodium (Lovenox) 40 mg SC DAILY [facility] PRN Reason: Protocol Last Admin: 11/20/17 10:10 Dose: 40 mg Linezolid (Zyvox 600mg/300ml D5w) 600 mg in 300 mls @ 200 mls/hr IVPB Q12 [facility] PRN Reason: Protocol Stop: 11/24/17 06:42 Last Admin: 11/20/17 23:23 Dose: 200 mls/hr Meropenem (Merrem Iv 1 Gm Premix) 50 mls @ 100 mls/hr IVPB Q8 [facility] PRN Reason: Protocol Stop: 11/24/17 06:46 Last Admin: 11/20/17 23:22 Dose: 100 mls/hr Iron Sucrose 100 mg/ Sodium (Chloride) 105 mls @ 210 mls/hr IVPB DAILY [facility] Stop: 11/21/17 10:01 Last Admin: 11/20/17 10:09 Dose: 210 mls/hr Lactic Acid (Lac-Hydrin 12% Lotion (225 G)) 0 gm EXT DAILY [facility] Last Admin: 11/20/17 10:11 Dose: 1 applic Levalbuterol HCl (Xopenex) 0.63 mg IH [id number] PRN PRN Reason: Shortness of Breath Losartan Potassium (Cozaar) 25 mg PEG DAILY [facility] Last Admin: 11/20/17 10:09 Dose: 25 mg Morphine Sulfate (Morphine) 2 mg IVP Q4H PRN PRN Reason: Pain, severe (8-10) Last Admin: 11/18/17 23:25 Dose: 2 mg Pantoprazole Sodium (Protonix Inj) 40 mg IVP DAILY [facility] Last Admin: 11/20/17 10:10 Dose: 40 mg Saliva Substitute (Saliva Substitute) 2 ml PO Q2H [facility] Last Admin: 11/20/17 23:26 Dose: 2 ml Silver Sulfadiazine (Silvadene 1% 25 Gm) 0 gm TP BID [facility] Last Admin: 11/20/17 17:28 Dose: 25 gm Sodium Hypochlorite (Dakins Solution 0.5%) 500 ml TOP DAILY [facility] Last Admin: 11/20/17 10:10 Dose: 1 applic - Labs Labs: 11/20/17 06:30 11/20/17 06:30 PT 14.8 SECONDS (9.4-12.5) H 11/16/17 18:05 INR 1.29 (0.93-1.08) H 11/16/17 18:05 APTT 47.9 Seconds (25.1-36.5) H 11/20/17 08:30
[2017-11-21 01:27] LABS: BASO # 0.02 K/mm3 (0.0-2.0); BASO % 0.1 % (0.0-3.0); EOS # 0.1 (0.0-0.7); EOS % 0.8 % (1.5-5.0); GRAN # 15.05 (1.4-6.5); GRAN % 84.7 % (50.0-68.0); HEMOGLOBIN 9.8 g/dL (14.0-18.0); LYMPH # 1.8 (1.2-3.4); LYMPH % 9.9 % (22.0-35.0); MEAN CELL VOLUME 74.3 fl (80.0-105.0); MEAN CORPUSCULAR HEMOGLOBIN 23.6 pg (25.0-35.0); MEAN CORPUSCULAR HGB CONC 31.7 g/dl (31.0-37.0); MEAN PLATELET VOLUME 9.4 fl (7.0-11.0); MONO # 0.8 (0.1-0.6); MONO % 4.5 % (1.0-6.0); RBC 4.16 10^6/uL (3.5-6.1); RED CELL DISTRIBUTION WIDTH 19.4 % (11.5-14.5); WHITE BLOOD COUNT 17.8 10^3/ul (4.5-11.0)
--- NOTE | 2017-11-21 01:34 | CP.PCM.PN ---
Subjective - Date & Time of Evaluation Date of Evaluation: 11/21/17 Time of Evaluation: 01:31 - Subjective Subjective: Patient was seen at bedside because he had # 26 beats of runs of VTACH. Pulse ox 98 % on 2 L/min by nasal canula.137/74;99.7*F,90/min,22/min. 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 Spoke to patient. He does not talk much. Moans when a he was asked any question. Does not seem to be in distress, pain. Medical record was reviewed. This 87 year old male was admitted stage IV decubitus ulcer,DVT, anemia. Has PMH of HTN, CVA,HLD, PNA, dementia, bedridden, feeding tube insertion. Objective - Vital Signs/Intake and Output Vital Signs (last 24 hours): Temp Pulse Resp BP Pulse Ox 99.7 F H 90 18 137/74 98 11/21/17 00:01 11/21/17 00:01 11/21/17 00:01 11/21/17 00:01 11/21/17 00:01 Intake and Output: 11/20/17 11/21/17 18:59 06:59 Intake Total 0 Output Total 1100 Balance -1100 - Medications Medications: Current Medications Acetaminophen (Tylenol 650mg/20.3ml Solution Ud) 650 mg PEG Q6H PRN PRN Reason: Pain, Mild (1-3) Aspirin (Ecotrin) 81 mg PO DAILY [facility] Last Admin: 11/20/17 10:10 Dose: 81 mg Collagenase (Santyl) 1 gm TOP BID [facility] Last Admin: 11/20/17 17:27 Dose: 1 applic Donepezil HCl (Aricept) 5 mg PEG HS [facility] Last Admin: 11/20/17 23:22 Dose: 5 mg Enoxaparin Sodium (Lovenox) 40 mg SC DAILY [facility] PRN Reason: Protocol Last Admin: 11/20/17 10:10 Dose: 40 mg Linezolid (Zyvox 600mg/300ml D5w) 600 mg in 300 mls @ 200 mls/hr IVPB Q12 [facility] PRN Reason: Protocol Stop: 11/24/17 06:42 Last Admin: 11/20/17 23:23 Dose: 200 mls/hr Meropenem (Merrem Iv 1 Gm Premix) 50 mls @ 100 mls/hr IVPB Q8 [facility] PRN Reason: Protocol Stop: 11/24/17 06:46 Last Admin: 11/20/17 23:22 Dose: 100 mls/hr Iron Sucrose 100 mg/ Sodium (Chloride) 105 mls @ 210 mls/hr IVPB DAILY [facility] Stop: 11/21/17 10:01 Last Admin: 11/20/17 10:09 Dose: 210 mls/hr Lactic Acid (Lac-Hydrin 12% Lotion (225 G)) 0 gm EXT DAILY [facility] Last Admin: 11/20/17 10:11 Dose: 1 applic Levalbuterol HCl (Xopenex) 0.63 mg IH [id number] PRN PRN Reason: Shortness of Breath Losartan Potassium (Cozaar) 25 mg PEG DAILY [facility] Last Admin: 11/20/17 10:09 Dose: 25 mg Morphine Sulfate (Morphine) 2 mg IVP Q4H PRN PRN Reason: Pain, severe (8-10) Last Admin: 11/18/17 23:25 Dose: 2 mg Pantoprazole Sodium (Protonix Inj) 40 mg IVP DAILY [facility] Last Admin: 11/20/17 10:10 Dose: 40 mg Saliva Substitute (Saliva Substitute) 2 ml PO Q2H [facility] Last Admin: 11/20/17 23:26 Dose: 2 ml Silver Sulfadiazine (Silvadene 1% 25 Gm) 0 gm TP BID [facility] Last Admin: 11/20/17 17:28 Dose: 25 gm Sodium Hypochlorite (Dakins Solution 0.5%) 500 ml TOP DAILY [facility] Last Admin: 11/20/17 10:10 Dose: 1 applic - Labs Labs: 11/21/17 01:14 11/20/17 06:30 PT 14.8 SECONDS (9.4-12.5) H 11/16/17 18:05 INR 1.29 (0.93-1.08) H 11/16/17 18:05 APTT 47.9 Seconds (25.1-36.5) H 11/20/17 08:30 Micro Results 11/16/17 18:35 Blood Blood Culture - Preliminary NO GROWTH AFTER 4 DAYS 11/16/17 18:05 Blood Blood Culture - Preliminary NO GROWTH AFTER 4 DAYS 11/16/17 20:19 Foot - Left Gram Stain - Final 11/16/17 20:19 Foot - Left Wound Culture - Final Klebsiella Pneumoniae Ssp Pneu Methicillin Resistant S Aureus Enterococcus Faecalis 11/16/17 20:19 Sacral Gram Stain - Final 11/16/17 20:19 Sacral Wound Culture - Final Klebsiella Pneumoniae Ssp Pneu Staphylococcus Aureus Enterobacter Cloacae Ssp Cloac 11/16/17 20:27 Urine Urine Culture - Final Yeast Species 11/17/17 08:00 Sacral Anaerobic Culture - Final NO ANAEROBES ISOLATED. Most Recent Lab Values WBC 17.8 10^3/ul (4.5-11.0) H 11/21/17 01:14 RBC 4.16 10^6/uL (3.5-6.1) 11/21/17 01:14 Hgb 9.8 g/dL (14.0-18.0) L 11/21/17 01:14 Hct 30.9 % (42.0-52.0) L 11/21/17 01:14 MCV 74.3 fl (80.0-105.0) L 11/21/17 01:14 MCH 23.6 pg (25.0-35.0) L 11/21/17 01:14 MCHC 31.7 g/dl (31.0-37.0) 11/21/17 01:14 RDW 19.4 % (11.5-14.5) H 11/21/17 01:14 Plt Count 440 10^3/uL (120.0-450.0) 11/21/17 01:14 MPV 9.4 fl (7.0-11.0) 11/21/17 01:14 Gran % 84.7 % (50.0-68.0) H 11/21/17 01:14 Lymph % (Auto) 9.9 % (22.0-35.0) L 11/21/17 01:14 [place] % (Auto) 4.5 % (1.0-6.0) 11/21/17 01:14 Eos % (Auto) 0.8 % (1.5-5.0) L 11/21/17 01:14 Baso % (Auto) 0.1 % (0.0-3.0) 11/21/17 01:14 Gran # 15.05 (1.4-6.5) H 11/21/17 01:14 Lymph # (Auto) 1.8 (1.2-3.4) 11/21/17 01:14 [place] # (Auto) 0.8 (0.1-0.6) H 11/21/17 01:14 Eos # (Auto) 0.1 (0.0-0.7) 11/21/17 01:14 Baso # (Auto) 0.02 K/mm3 (0.0-2.0) 11/21/17 01:14 PT 14.8 SECONDS (9.4-12.5) H 11/16/17 18:05 INR 1.29 (0.93-1.08) H 11/16/17 18:05 APTT 47.9 Seconds (25.1-36.5) H 11/20/17 08:30 pCO2 34 mm/Hg (35-45) L 11/16/17 23:24 pO2 51.0 mm/Hg (80-100) L 11/16/17 23:24 HCO3 25.9 mmol/L (21-28) 11/16/17 23:24 ABG pH 7.49 (7.35-7.45) H 11/16/17 23:24 ABG Total CO2 26.9 mmol.L (22-28) 11/16/17 23:24 ABG O2 Saturation 92.8 % (95-98) L 11/16/17 23:24 ABG Base Excess 2.9 mmol/L (-2.0-3.0) 11/16/17 23:24 ABG Potassium 4.1 mmol/L (3.6-5.2) 11/16/17 23:24 VBG pH 7.41 (7.32-7.43) 11/16/17 18:05 VBG pCO2 46.0 (40-60) 11/16/17 18:05 VBG HCO3 29.2 mmol/l (21-28) H 11/16/17 18:05 VBG Total CO2 30.6 mmol.L (22-28) H 11/16/17 18:05 VBG O2 Sat (Calc) 97.2 % (40-65) H 11/16/17 18:05 VBG Base Excess 3.8 mmol/L (0.0-2.0) H 11/16/17 18:05 VBG Potassium 4.9 mmol/L (3.6-5.2) 11/16/17 18:05 Sodium 140.0 mmol/L (132-148) 11/16/17 23:24 Chloride 113.0 mmol/L (98-107) H 11/16/17 23:24 Glucose 114 mg/dl (75-110) H 11/16/17 23:24 Lactate 1.2 mmol/L (0.7-2.1) 11/16/17 23:24 FiO2 21.0 % 11/16/17 23:24 Sodium 135 mmol/L (132-148) 11/20/17 06:30 Potassium 3.9 mmol/L (3.6-5.0) 11/20/17 06:30 Chloride 102 mmol/L (98-107) 11/20/17 06:30 Carbon Dioxide 25 mmol/L (21-33) 11/20/17 06:30 Anion Gap 13 (10-20) 11/20/17 06:30 BUN 13 mg/dL (7-21) 11/20/17 06:30 Creatinine 0.6 mg/dl (0.8-1.5) L 11/20/17 06:30 Est GFR ( Amer) > 60 11/20/17 06:30 Est GFR (Non-Af Amer) > 60 11/20/17 06:30 Random Glucose 82 mg/dL (70-110) 11/20/17 06:30 Calcium 7.8 mg/dL (8.4-10.5) L 11/20/17 06:30 Phosphorus 2.3 mg/dL (2.5-4.5) L 11/20/17 06:30 Magnesium 2.0 mg/dL (1.7-2.2) 11/20/17 06:30 Iron 10 ug/dL (45-180) L 11/17/17 13:30 TIBC 232 ug/dL (261-462) L 11/17/17 13:30 % Saturation 4 % (20-55) L 11/17/17 13:30 Total Bilirubin 0.6 mg/dL (0.2-1.3) 11/19/17 06:30 AST 48 U/L (17-59) 11/19/17 06:30 ALT 54 U/L (7-56) 11/19/17 06:30 Alkaline Phosphatase 125 U/L (38-126) 11/19/17 06:30 Total Protein 5.9 g/dL (5.8-8.3) 11/19/17 06:30 Albumin 2.6 g/dL (3.0-4.8) L 11/19/17 06:30 Globulin 3.3 gm/dL 11/19/17 06:30 Albumin/Globulin Ratio 0.8 (1.1-1.8) L 11/19/17 06:30 Vitamin B12 563 pg/mL (239-931) 11/17/17 13:30 RBC Folate 1400 ng/mL RBC (>280) 11/17/17 13:30 Arterial Blood Potassium 4.1 mmol/L (3.6-5.2) 11/16/17 23:24 Venous Blood Potassium 4.9 mmol/L (3.6-5.2) 11/16/17 18:05 Urine Color Yellow (YELLOW) 11/16/17 20:45 Urine Appearance Clear (CLEAR) 11/16/17 20:45 Urine pH 6.5 (4.7-8.0) 11/16/17 20:45 Ur Specific [place] 1.010 (1.005-1.035) 11/16/17 20:45 Urine Protein 30 mg/dL (<30 mg/dL) H 11/16/17 20:45 Urine Glucose (UA) Negative mg/dL (NEGATIVE) 11/16/17 20:45 Urine Ketones Negative mg/dL (NEGATIVE) 11/16/17 20:45 Urine Blood Negative (NEGATIVE) 11/16/17 20:45 Urine Nitrate Negative (NEGATIVE) 11/16/17 20:45 Urine Bilirubin Negative (NEGATIVE) 11/16/17 20:45 Urine Urobilinogen 0.2 E.U./dL (<1 E.U./dL) 11/16/17 20:45 Ur Leukocyte Esterase Moderate [place]/uL (NEGATIVE) H 11/16/17 20:45 Urine RBC 1 - 3 /hpf (0-2) 11/16/17 20:45 Urine WBC 10 - 15 /hpf (0-6) 11/16/17 20:45 Ur Epithelial Cells Many /hpf (0-5) 11/16/17 20:45 Blood Type B POSITIVE 11/18/17 06:30 Antibody Screen Negative 11/18/17 06:30 Crossmatch See Detail 11/18/17 06:30 BBK History Checked Patient has bt 11/18/17 06:30 - Constitutional Appears: Well, No Acute Distress - Head Exam Head Exam: ATRAUMATIC, NORMAL INSPECTION, NORMOCEPHALIC - Eye Exam Eye Exam: Normal appearance - ENT Exam ENT Exam: Normal External Ear Exam - Neck Exam Neck Exam: Normal Inspection - Respiratory Exam Respiratory Exam: NORMAL BREATHING PATTERN - Cardiovascular Exam Cardiovascular Exam: absent: JVD - GI/Abdominal Exam GI & Abdominal Exam: absent: Distended - Rectal Exam Rectal Exam: Deferred - Exam Additional comments: Deferred. - Extremities Exam Extremities Exam: Normal Inspection - Back Exam Back Exam: NORMAL INSPECTION - Neurological Exam Neurological Exam: Alert, Awake - Psychiatric Exam Psychiatric exam: Normal Mood - Skin Additional comments: Large decubitus ulcer across gluteal area. Assessment and Plan - Assessment and Plan (Free Text) Assessment: Non sustained ventricular tachycardia. HTN. HLD. Dementia. History of CVA. Decubetus ulcer. Plan: Lab work that have been ordered for this morning will be done now. That include CBC, CMP, NH3 plus troponin level. EKG stat------> No acute changes.
[2017-11-21 02:01] LABS: BLOOD UREA NITROGEN 11 mg/dL (7-21); GFR AFRICAN-AMERICAN > 60; GFR NON-AFRICAN AMERICAN > 60
[2017-11-21 02:02] LABS: CALCIUM 7.8 mg/dL (8.4-10.5); TROPONIN I < 0.01 ng/mL
[2017-11-21 02:12] LABS: FREE T4 1.89 ng/dL (0.78-2.19)
[2017-11-21] MEDS: Saliva Substitute 44.3 ML PO SCH ×13 (02:20→23:30)
[2017-11-21] MEDS: Meropenem IV 1 gm in NS 50 ML IVPB SCH ×3 (05:29→21:13)
[2017-11-21] MEDS ORDERED: oxyCODONE 5 mg Immediate Release Tab PO PRN (07:18)
[2017-11-21] MEDS ORDERED: Acetaminophen 650mg/20.3ml solution UD PEG PRN (07:20)
--- NOTE | 2017-11-21 07:30 | CP.PCM.PN ---
Subjective - Date & Time of Evaluation Date of Evaluation: 11/21/17 Time of Evaluation: 06:30 - Subjective Subjective: Patient seen and examined this AM. Per chart, patient had an episode of asymptomatic v-tach on rhythm strip last night, which converted on its own, and has no cardiac symptoms at this time. Nursing changed dressing this morning and denies any sign of bleeding Objective - Vital Signs/Intake and Output Vital Signs (last 24 hours): Temp Pulse Resp BP Pulse Ox 98.7 F 88 18 127/68 98 11/21/17 06:00 11/21/17 06:00 11/21/17 06:00 11/21/17 06:00 11/21/17 06:00 Intake and Output: 11/21/17 11/21/17 06:59 18:59 Intake Total 1000 Output Total 780 Balance 220 - Medications Medications: Current Medications Acetaminophen (Tylenol 650mg/20.3ml Solution Ud) 650 mg PEG Q6H PRN PRN Reason: Pain, moderate (4-7) Aspirin (Ecotrin) 81 mg PO DAILY [facility] Last Admin: 11/20/17 10:10 Dose: 81 mg Collagenase (Santyl) 1 gm TOP BID [facility] Last Admin: 11/20/17 17:27 Dose: 1 applic Donepezil HCl (Aricept) 5 mg PEG HS [facility] Last Admin: 11/20/17 23:22 Dose: 5 mg Enoxaparin Sodium (Lovenox) 40 mg SC DAILY [facility] PRN Reason: Protocol Last Admin: 11/20/17 10:10 Dose: 40 mg Linezolid (Zyvox 600mg/300ml D5w) 600 mg in 300 mls @ 200 mls/hr IVPB Q12 [facility] PRN Reason: Protocol Stop: 11/24/17 06:42 Last Admin: 11/20/17 23:23 Dose: 200 mls/hr Meropenem (Merrem Iv 1 Gm Premix) 50 mls @ 100 mls/hr IVPB Q8 [facility] PRN Reason: Protocol Stop: 11/24/17 06:46 Last Admin: 11/21/17 05:29 Dose: 100 mls/hr Iron Sucrose 100 mg/ Sodium (Chloride) 105 mls @ 210 mls/hr IVPB DAILY [facility] Stop: 11/21/17 10:01 Last Admin: 11/20/17 10:09 Dose: 210 mls/hr Lactic Acid (Lac-Hydrin 12% Lotion (225 G)) 0 gm EXT DAILY [facility] Last Admin: 11/20/17 10:11 Dose: 1 applic Levalbuterol HCl (Xopenex) 0.63 mg IH [id number] PRN PRN Reason: Shortness of Breath Losartan Potassium (Cozaar) 25 mg PEG DAILY [facility] Last Admin: 11/20/17 10:09 Dose: 25 mg Oxycodone HCl (Oxycodone Immediate Release Tab) 5 mg PO Q6H PRN PRN Reason: Pain, severe (8-10) Pantoprazole Sodium (Protonix Inj) 40 mg IVP DAILY [facility] Last Admin: 11/20/17 10:10 Dose: 40 mg Saliva Substitute (Saliva Substitute) 2 ml PO Q2H [facility] Last Admin: 11/21/17 05:29 Dose: 2 ml Silver Sulfadiazine (Silvadene 1% 25 Gm) 0 gm TP BID [facility] Last Admin: 11/20/17 17:28 Dose: 25 gm Sodium Hypochlorite (Dakins Solution 0.5%) 500 ml TOP DAILY [facility] Last Admin: 11/20/17 10:10 Dose: 1 applic - Labs Labs: 11/21/17 01:14 11/21/17 01:14 PT 14.8 SECONDS (9.4-12.5) H 11/16/17 18:05 INR 1.29 (0.93-1.08) H 11/16/17 18:05 APTT 47.9 Seconds (25.1-36.5) H 11/20/17 08:30 - Constitutional Appears: Well, Non-toxic, No Acute Distress - Head Exam Head Exam: ATRAUMATIC, NORMOCEPHALIC - Eye Exam Eye Exam: Normal appearance - ENT Exam ENT Exam: Mucous Membranes Moist, Normal Oropharynx - Respiratory Exam Respiratory Exam: NORMAL BREATHING PATTERN. absent: Accessory Muscle Use, Respiratory Distress - Neurological Exam Neurological Exam: Alert, Awake. absent: CN II-XII Intact - Psychiatric Exam Psychiatric exam: Normal Affect, Normal Mood - Skin Skin Exam: Dry, Normal Color, Warm Assessment and Plan - Assessment and Plan (Free Text) Assessment: 87M with necrotizing fasciitis in stage 4 sacral ulcer extending to left gluteus and right perineum Plan: OR 11/22 for further debridement of wound Continue antibiotics per ID--currently on merrem and zyvox Continue daily dressing changes with silvdene by nursing BID Monitor for fevers Turn Q2, air mattress, PT PRN pain medication Hold tube feeds after midnight Discussed with Dr. Carrillo Alejandre, Pgy2
[2017-11-21] MEDS ORDERED: Magnesium Oxide 400 mg Tab UD PO SCH (10:00)
[2017-11-21] MEDS: Collagenase 250 Units/gm Ointment(30 gm) TOP SCH ×2 (10:22→19:47)
[2017-11-21] MEDS: Magnesium Oxide 400 mg Tab UD PEG SCH (10:23)
[2017-11-21] MEDS: Silver Sulfadiazine 1% Cream (25 gm) TP SCH ×3 (10:23→19:09)
[2017-11-21] MEDS: Potassium Chloride 20 mEq/15 ml LIQ UD PEG SCH (10:26)
[2017-11-21] MEDS: Enoxaparin 40 mg Syringe SC SCH (10:26)
[2017-11-21] MEDS: Linezolid 600 mg in D5W 300 ml 600 MG/300 ML BAG IVPB SCH ×2 (10:28→21:13)
--- NOTE | 2017-11-21 12:07 | CP.PCM.PN ---
Subjective - Date & Time of Evaluation Date of Evaluation: 11/21/17 Time of Evaluation: 09:25 - Subjective Subjective: Still weak-looking but afebrile, planned for more debridement tomorrow. Objective - Vital Signs/Intake and Output Vital Signs (last 24 hours): Temp Pulse Resp BP Pulse Ox 98.7 F 88 18 127/68 98 11/21/17 06:00 11/21/17 06:00 11/21/17 06:00 11/21/17 06:00 11/21/17 06:00 Intake and Output: 11/20/17 11/21/17 18:59 06:59 Intake Total 0 1000 Output Total 1100 780 Balance -1100 220 - Medications Medications: Current Medications Acetaminophen (Tylenol 650mg/20.3ml Solution Ud) 650 mg PEG Q6H PRN PRN Reason: Pain, Mild (1-3) Aspirin (Ecotrin) 81 mg PO DAILY [facility] Last Admin: 11/20/17 10:10 Dose: 81 mg Collagenase (Santyl) 1 gm TOP BID [facility] Last Admin: 11/20/17 17:27 Dose: 1 applic Donepezil HCl (Aricept) 5 mg PEG HS [facility] Last Admin: 11/20/17 23:22 Dose: 5 mg Enoxaparin Sodium (Lovenox) 40 mg SC DAILY [facility] PRN Reason: Protocol Last Admin: 11/20/17 10:10 Dose: 40 mg Linezolid (Zyvox 600mg/300ml D5w) 600 mg in 300 mls @ 200 mls/hr IVPB Q12 [facility] PRN Reason: Protocol Stop: 11/24/17 06:42 Last Admin: 11/20/17 23:23 Dose: 200 mls/hr Meropenem (Merrem Iv 1 Gm Premix) 50 mls @ 100 mls/hr IVPB Q8 [facility] PRN Reason: Protocol Stop: 11/24/17 06:46 Last Admin: 11/21/17 05:29 Dose: 100 mls/hr Iron Sucrose 100 mg/ Sodium (Chloride) 105 mls @ 210 mls/hr IVPB DAILY [facility] Stop: 11/21/17 10:01 Last Admin: 11/20/17 10:09 Dose: 210 mls/hr Lactic Acid (Lac-Hydrin 12% Lotion (225 G)) 0 gm EXT DAILY [facility] Last Admin: 11/20/17 10:11 Dose: 1 applic Levalbuterol HCl (Xopenex) 0.63 mg IH [id number] PRN PRN Reason: Shortness of Breath Losartan Potassium (Cozaar) 25 mg PEG DAILY [facility] Last Admin: 11/20/17 10:09 Dose: 25 mg Morphine Sulfate (Morphine) 2 mg IVP Q4H PRN PRN Reason: Pain, severe (8-10) Last Admin: 11/18/17 23:25 Dose: 2 mg Pantoprazole Sodium (Protonix Inj) 40 mg IVP DAILY [facility] Last Admin: 11/20/17 10:10 Dose: 40 mg Saliva Substitute (Saliva Substitute) 2 ml PO Q2H [facility] Last Admin: 11/21/17 05:29 Dose: 2 ml Silver Sulfadiazine (Silvadene 1% 25 Gm) 0 gm TP BID [facility] Last Admin: 11/20/17 17:28 Dose: 25 gm Sodium Hypochlorite (Dakins Solution 0.5%) 500 ml TOP DAILY [facility] Last Admin: 11/20/17 10:10 Dose: 1 applic - Labs Labs: 11/21/17 01:14 11/21/17 01:14 PT 14.8 SECONDS (9.4-12.5) H 11/16/17 18:05 INR 1.29 (0.93-1.08) H 11/16/17 18:05 APTT 47.9 Seconds (25.1-36.5) H 11/20/17 08:30 - Constitutional Appears: Chronically Ill - Head Exam Head Exam: NORMAL INSPECTION - Respiratory Exam Respiratory Exam: Decreased Breath Sounds - Cardiovascular Exam Cardiovascular Exam: +S1, +S2 - GI/Abdominal Exam GI & Abdominal Exam: Soft. absent: Tenderness Assessment and Plan - Assessment and Plan (Free Text) Plan: Assessment severe sepsis due to left gluteal necrotizing fasciitis S/P debridement POD #4, with multiple organisms growing from the wound history of severe sepsis S/P acute renal failure due to intra-abdominal infection with ascending colitis in this patient who developed right sided pneumohydrothorax S/P right sided chest tube placement history of severe sepsis with acute renal failure due to HCAP TIA COPD dementia HTN osteoarthritis chronic CHF cataracts Plan continue Zyvox and Merrem day 4 - patient planned for repeat debridement on Monday (tomorrow) will continue to monitor clinically
[2017-11-21] MEDS: Ammonium Lactate 12% Lotion (225 g) EXT SCH (12:16)
[2017-11-21] MEDS: Dakin's Topical 0.5%-Full Strength (480 ml) TOP SCH (12:16)
--- NOTE | 2017-11-21 13:05 | PN ---
DATE: 11/21/2017 Eric Harrison was seen on the floor. We were examining the wound. There is still some necrotic tissue, but the most part is clean and noninvasive. We will try to debride the wound in the morning. Removed the drains. He is having stool contaminated the wounds and he might need a colostomy. We will discuss postop, but we are planning to tomorrow. Morgan Vizcaino MD
--- NOTE | 2017-11-21 14:04 | CARD ---
APPROVED REPORT EKG Measurement Heart [id number] <Conclusion> Sinus rhythm with premature atrial complexes Incomplete RBBB Possible Lateral infarct, age undetermined Possible Inferior infarct, age undetermined Abnormal ECG
[2017-11-21] MEDS ORDERED: Potassium Chloride 20 mEq/15 ml LIQ UD PEG ONE (15:00)
--- NOTE | 2017-11-21 19:33 | CP.PCM.PN ---
Subjective - Date & Time of Evaluation Date of Evaluation: 11/21/17 Time of Evaluation: 17:05 - Subjective Subjective: Podiatry Progress Note for Dr. Remberto SamM seen at bedside for a left foot heel ulceration. Patient suffers from dementia and is non-verbal during the entire examination. Per nursing, no acute overnight events. Multipodus boots noted to be in place. Dressings C/D/I to left foot Objective - Vital Signs/Intake and Output Vital Signs (last 24 hours): Temp Pulse Resp BP Pulse Ox 98.9 F 67 19 139/59 L 98 11/21/17 17:56 11/21/17 17:56 11/21/17 17:56 11/21/17 17:56 11/21/17 06:00 Intake and Output: 11/21/17 11/22/17 18:59 06:59 Intake Total 0 Output Total 900 Balance -900 - Medications Medications: Current Medications Acetaminophen (Tylenol 650mg/20.3ml Solution Ud) 650 mg PEG Q6H PRN PRN Reason: Pain, moderate (4-7) Aspirin (Ecotrin) 81 mg PO DAILY [facility] Last Admin: 11/21/17 10:25 Dose: 81 mg Collagenase (Santyl) 1 gm TOP BID [facility] Last Admin: 11/21/17 10:22 Dose: Not Given Donepezil HCl (Aricept) 5 mg PEG HS [facility] Last Admin: 11/20/17 23:22 Dose: 5 mg Linezolid (Zyvox 600mg/300ml D5w) 600 mg in 300 mls @ 200 mls/hr IVPB Q12 [facility] PRN Reason: Protocol Stop: 11/24/17 06:42 Last Admin: 11/21/17 10:28 Dose: 200 mls/hr Meropenem (Merrem Iv 1 Gm Premix) 50 mls @ 100 mls/hr IVPB Q8 [facility] PRN Reason: Protocol Stop: 11/24/17 06:46 Last Admin: 11/21/17 14:55 Dose: 100 mls/hr Lactic Acid (Lac-Hydrin 12% Lotion (225 G)) 0 gm EXT DAILY [facility] Last Admin: 11/21/17 12:16 Dose: 1 applic Levalbuterol HCl (Xopenex) 0.63 mg IH [id number] PRN PRN Reason: Shortness of Breath Losartan Potassium (Cozaar) 25 mg PEG DAILY [facility] Last Admin: 11/21/17 10:24 Dose: 25 mg Magnesium Oxide (Mag-Ox) 400 mg PEG DAILY [facility] Last Admin: 11/21/17 10:23 Dose: 400 mg Metoprolol Tartrate (Lopressor) 25 mg PO BID [facility] Last Admin: 11/21/17 17:01 Dose: 25 mg Oxycodone HCl (Oxycodone Immediate Release Tab) 5 mg PO Q6H PRN PRN Reason: Pain, severe (8-10) Pantoprazole Sodium (Protonix Inj) 40 mg IVP DAILY [facility] Last Admin: 11/21/17 10:26 Dose: 40 mg Potassium Chloride (Potassium Chloride Oral Soln) 20 meq PEG DAILY [facility] Last Admin: 11/21/17 10:26 Dose: 20 meq Saliva Substitute (Saliva Substitute) 2 ml PO Q2H [facility] Last Admin: 11/21/17 17:03 Dose: 2 ml Silver Sulfadiazine (Silvadene 1% 25 Gm) 0 gm TP BID [facility] Last Admin: 11/21/17 18:40 Dose: 25 gm Sodium Hypochlorite (Dakins Solution 0.5%) 500 ml TOP DAILY [facility] Last Admin: 11/21/17 12:16 Dose: Not Given - Labs Labs: 11/21/17 01:14 11/21/17 01:14 PT 14.8 SECONDS (9.4-12.5) H 11/16/17 18:05 INR 1.29 (0.93-1.08) H 11/16/17 18:05 APTT 47.9 Seconds (25.1-36.5) H 11/20/17 08:30 - Constitutional Appears: Well, Non-toxic, No Acute Distress - Head Exam Head Exam: ATRAUMATIC, NORMOCEPHALIC - Extremities Exam Additional comments: LE focused exam: Vasc: DP and PT pulses non-palpable b/l. CFT > 3 seconds to all digits. Skin temperature warm to cool from proximal to distal. No edema noted to b/l LE Neuro: Unable to assess due to patient's mental state Derm: Unstageable pressure ulcer noted to the medial aspect of left heel measuring approximately 4 cm by 3.5 cm with stable eschar and fibrous base, no malodor, no drainage noted. No underlying fluctuance noted. No other clinical signs of infection at this time. Skin on feet is diffusely xerotic MSK: No tenderness on palpation to left heel ulcer. No other gross deformities noted. Unable to assess patient's MMT due to mental state - Neurological Exam Neurological Exam: Alert, Awake - Psychiatric Exam Psychiatric exam: Normal Affect, Normal Mood Assessment and Plan - Assessment and Plan (Free Text) Assessment: 87 year old male with clinically stable, unstageable left heel pressure ulcer Plan: Patient seen and evaluated with attending Dr. Sr Afebrile, WBC 17.8 from 21.8 Continue IV abx per ID 11/16 Wound cx: Klebsiella Pneumoniae, MRSA, E Faecalis 11/17 Venous duplex: No evidence of DVT b/l 11/20: Left foot xray: Normal radiograph L foot 11/20: FERNANDO/PVR: Distal SFA, popliteal and/or trifurcation disease; left tibial occlusive disease Patient wound dressed with Santyl, optifoam, DSD No surgical intervention planned at this time Podiatry will continue to follow while patient in house
[2017-11-22] MEDS: Saliva Substitute 44.3 ML PO SCH ×12 (00:12→23:00)
--- NOTE | 2017-11-22 05:17 | PN ---
DATE: 11/20/2017 SUBJECTIVE: Patient is stable, in no distress. No chest pain. No short of breath. Patient is currently on IV antibiotics. He is off heparin. PHYSICAL EXAMINATION: VITAL SIGNS: Temperature 98.2, heart rate 92, blood pressure 171/93, respirations 20, sat 96%. HEAD AND NECK: Normal. No JVD. No thyromegaly. CHEST: Clear bilaterally. CARDIAC: First sound and second sound normal. ABDOMEN: Soft and nontender. PEG tube site is clean. EXTREMITIES: No edema. NEUROLOGIC: General weakness. Patient responds to calling his name, responds appropriately. Patient has dementia. LABORATORY STUDY: On 11/20/2017, his white count 21.8, hemoglobin 10.5, hematocrit 33.1, platelets 424. Chemistry: Sodium 135, potassium 3.9, chloride 102, bicarb 25, BUN 13, creatinine 0.6, calcium 7.8, phosphorus 2.3, magnesium 2. Liver function test is being normalized. IMPRESSION AND PLAN: 1. Severe stage IV decubitus ulcerations with gas formations, status post debridement and drainage. Patient was given IV antibiotics. Seen by surgical team and ID consult, Dr. Zayas. Continue IV antibiotics. He is getting Zyvox and meropenem. 2. History of questionable deep vein thrombosis; however, ultrasound of the legs, which was negative. IV heparin was discontinued and Dr. Antony Alex has seen the patient and recommended no IV antibiotic. No evidence of deep vein thrombosis. We will follow up clinically. No IV filter placement. 3. Chronic obstructive pulmonary disease. Continue nebulizer treatment. 4. Hypertension, dementia, chronic generalized weakness, dysphagia, cerebrovascular accident, hypercholesterolemia, chronic pain, chronic osteoarthritis, and continue current therapy. Patient is getting Aricept, Cozaar 25, he is getting Ecotrin 81, Lopressor 25 b.i.d., magnesium oxide, potassium 20 once a day, Protonix 40 once a day, saliva substitute 2 mL every 12 p.r.n., collagenase 1 g topically b.i.d., Silvadene cream, Tylenol, Xopenex, and Zyvox IV every 12. Continue current therapy. Follow up clinically. Continue percutaneous endoscopic gastrostomy tube feeding. Cody Aguilar MD [facility] # [id number]
[2017-11-22] MEDS: Meropenem IV 1 gm in NS 50 ML IVPB SCH ×4 (05:34→23:25)
[2017-11-22 07:12] LABS: BASO # 0.02 K/mm3 (0.0-2.0); BASO % 0.1 % (0.0-3.0); EOS # 0.3 (0.0-0.7); EOS % 1.5 % (1.5-5.0); GRAN # 15.04 (1.4-6.5); HEMOGLOBIN 10.7 g/dL (14.0-18.0); LYMPH # 2.4 (1.2-3.4); LYMPH % 13.1 % (22.0-35.0); MEAN CELL VOLUME 74.9 fl (80.0-105.0); MEAN CORPUSCULAR HEMOGLOBIN 23.9 pg (25.0-35.0); MEAN CORPUSCULAR HGB CONC 31.9 g/dl (31.0-37.0); MEAN PLATELET VOLUME 8.9 fl (7.0-11.0); MONO # 0.8 (0.1-0.6); MONO % 4.3 % (1.0-6.0); RBC 4.47 10^6/uL (3.5-6.1); RED CELL DISTRIBUTION WIDTH 19.8 % (11.5-14.5); WHITE BLOOD COUNT 18.6 10^3/ul (4.5-11.0)
[2017-11-22 07:24] LABS: INR 1.15 (0.93-1.08); PROTHROMBIN TIME 13.3 SECONDS (9.4-12.5)
[2017-11-22 07:35] LABS: ALB/GLOB RATIO 0.8 (1.1-1.8); ALBUMIN 2.8 g/dL (3.0-4.8); ALT/SGPT 40 U/L (7-56); AST/SGOT 53 U/L (17-59); BLOOD UREA NITROGEN 10 mg/dL (7-21); CALCIUM 8.4 mg/dL (8.4-10.5); GFR AFRICAN-AMERICAN > 60; GFR NON-AFRICAN AMERICAN > 60; HDL CHOLESTEROL 27 mg/dL (29-60)
[2017-11-22 07:39] LABS: LDL CHOLESTEROL < 30 mg/dL (0-129)
--- NOTE | 2017-11-22 09:07 | CON ---
REASON FOR CONSULTATION AND FOLLOWUP: A 26 beats possible VT. DATE: 11/21/2017 BRIEF CLINICAL HISTORY: This is an 87-year-old male with past medical history of hypertension, dementia, bedridden, PEG placement, history of stroke, brought here because of large sacral decubitus wound. He is status post debridement and scheduled for debridement tomorrow. Again, the patient had 28 beats of VT coded, so cardiac consult was called. On carefully reviewing the films, it looks like APCs , narrow QRS complex, possible AFib, but not VT. PAST MEDICAL HISTORY: As mentioned, CVA, dementia, hypertension, hyperlipidemia, bedridden, COPD, history of recurrent pneumonia, history of CVA, history of PEG tube placement, history of dysphagia and history of stroke. Old chart reviewed, history of pneumonia in the past also. ALLERGIES: NO KNOWN DRUG ALLERGIES. SOCIAL HISTORY: Lives with daughter, very supportive. No history of alcohol abuse. No history of tobacco abuse. PAST SURGICAL HISTORY: History of PEG placement for feeding. LABORATORY DATA: The patient had a last echo 06/02/[address] Peace and that revealed normal LV size, normal LV function, aortic structure appears normal, mitral annular calcification, mild trace tricuspid regurgitation dated 06/03/2017, calculated RVSP 32 and calculated ejection fraction of 50%. Prior to that, the patient had echo on 12/08/2016 read by me as normal ejection fraction of 60%-65%, trace to mild aortic regurgitation, mild to moderate mitral regurgitation, mild to moderate tricuspid regurgitation with RV systolic pressure of 44, no vegetation or thrombus noted. Serial EKGs showed sinus rhythm, premature APCs, incomplete right bundle branch block dated 11/16/2017. Prior EKG dated 05/31/2017 also shows sinus, incomplete right bundle with premature APCs since 2016. Also, the patient's, on 07/13/2017, EKG shows sinus rhythm with APCs, incomplete right bundle, nonspecific ST-T changes noted. 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 RECOMMENDATION: We will add adequate dose of beta lloyd and clear the patient to go for surgery, if need debridement. Get the lipid profile, TSH, hemoglobin A1c and treat with Broad Spectrum antibiotic. We will follow with you. Thank you Dr. Aguilar for providing us the opportunity in taking care of the patient, Christy Blancas. We will keep him a day or two for telemetry. Continue DVT prophylaxis. Continue low dose losartan and we will add adequate beta lloyd. We will start 25 mg and if tolerated we will increase to 50 b.i.d. We will clear the patient go for debridement. Dl Vázquez MD [id number]
--- NOTE | 2017-11-22 09:41 | PN ---
DATE: 11/21/2017 SUBJECTIVE: The patient on the bed, is comfortable, no distress, awake and appropriately responds lo calling his name. He had episode of ventricular tachycardia overnight, and otherwise no new complaints. Currently on IV antibiotics. PHYSICAL EXAMINATION: VITAL SIGNS: Temperature 98.5, heart rate 97, blood pressure 141/65, respirations 18, sat 98% on nasal cannula 2 liters. HEAD AND NECK: Normal. No JVD, no thyromegaly. CHEST: Bilaterally clear with few rhonchi. CARDIAC: First sound and second sound normal. ABDOMEN: Soft, nontender. PEG site is clean. EXTREMITIES: No edema. Left heel ulcer, . NEUROLOGIC: The patient is generally weak and needs assistance to move him. The patient is bedridden. He is alert and awake, responds appropriately to calling his name. SACRUM: The patient has a large decubitus in his lower sacral area, has been covered with a gauze. The patient also had a Light catheter in. LABORATORY DATA: Sodium 136, potassium 3.6, chloride 104, bicarb 25, BUN 11, creatinine 0.5. The patient's sugar is 159. Her calcium is 7.8, phosphorus 2.3, magnesium 1.9. hematology, CBC shows white count 17.8, hemoglobin 9.8, hematocrit 30.9, platelets 440. PT is in the 65 to 70. IMPRESSION AND PLAN: 1. Large decubitus ulcer, stage IV. Continue Zyvox and meropenem. Continue local wound care as per surgical team, status post debridement. 2. Cerebrovascular accident. Percutaneous endoscopic gastrostomy tube site clean. Continue feeding. Continue aspirin. 3. Hypertension. We will monitor his blood pressure, seems stable. 4. Chronic obstructive pulmonary disease, dementia, hypercholesterolemia and generalized weakness. Plan is to continue current therapy. We will follow up clinically and we will continue current treatment for now. 5. History of ventricular tachycardia, magnesium has been added. Cardiology consult, Dr. Vázquez. Continue Lopressor 25 b.i.d. Continue aspirin 81 mg. Continue Lovenox 40 subcu daily. Cody Aguilar MD [facility] # [id number]
[2017-11-22] MEDS: Dakin's Topical 0.5%-Full Strength (480 ml) TOP SCH (10:01)
[2017-11-22] MEDS: Collagenase 250 Units/gm Ointment(30 gm) TOP SCH ×3 (10:03→18:18)
[2017-11-22] MEDS: Magnesium Oxide 400 mg Tab UD PEG SCH (11:06)
[2017-11-22] MEDS: Ammonium Lactate 12% Lotion (225 g) EXT SCH (11:07)
[2017-11-22] MEDS: Potassium Chloride 20 mEq/15 ml LIQ UD PEG SCH (11:07)
[2017-11-22] MEDS: Silver Sulfadiazine 1% Cream (25 gm) TP SCH ×2 (11:09→17:59)
[2017-11-22] MEDS: Linezolid 600 mg in D5W 300 ml 600 MG/300 ML BAG IVPB SCH ×2 (11:10→21:44)
[2017-11-22] MEDS ORDERED: Oxychlorosene Topical 2 gm Packet TOP ONE (14:02)
[2017-11-22] MEDS ORDERED: Propofol 10 mg/ml Inj (20 ML) ONE (14:23)
[2017-11-22] MEDS ORDERED: Lidocaine 2% Inj (20ml) ONE (14:23)
[2017-11-22] MEDS ORDERED: Etomidate 20 mg/10ml Inj IV ONE (14:40)
--- NOTE | 2017-11-22 14:48 | CP.PCM.PN ---
Subjective - Date & Time of Evaluation Date of Evaluation: 11/22/17 Time of Evaluation: 09:30 - Subjective Subjective: Patient is scheduled for OR today, no fevers, no diarrhea. Objective - Vital Signs/Intake and Output Vital Signs (last 24 hours): Temp Pulse Resp BP Pulse Ox 97.5 F L 92 H 20 149/64 100 11/22/17 05:46 11/22/17 05:46 11/22/17 05:46 11/22/17 05:46 11/22/17 05:46 Intake and Output: 11/21/17 11/22/17 18:59 06:59 Intake Total 0 840 Output Total 900 1550 Balance -900 -710 - Medications Medications: Current Medications Acetaminophen (Tylenol 650mg/20.3ml Solution Ud) 650 mg PEG Q6H PRN PRN Reason: Pain, moderate (4-7) Aspirin (Ecotrin) 81 mg PO DAILY [facility] Last Admin: 11/21/17 10:25 Dose: 81 mg Collagenase (Santyl) 1 gm TOP BID [facility] Last Admin: 11/21/17 19:47 Dose: Not Given Donepezil HCl (Aricept) 5 mg PEG HS [facility] Last Admin: 11/21/17 21:11 Dose: 5 mg Linezolid (Zyvox 600mg/300ml D5w) 600 mg in 300 mls @ 200 mls/hr IVPB Q12 [facility] PRN Reason: Protocol Stop: 11/24/17 06:42 Last Admin: 11/21/17 21:13 Dose: 200 mls/hr Meropenem (Merrem Iv 1 Gm Premix) 50 mls @ 100 mls/hr IVPB Q8 RYLIE PRN Reason: Protocol Stop: 11/24/17 06:46 Last Admin: 11/22/17 05:34 Dose: 100 mls/hr Lactic Acid (Lac-Hydrin 12% Lotion (225 G)) 0 gm EXT DAILY [facility] Last Admin: 11/21/17 12:16 Dose: 1 applic Levalbuterol HCl (Xopenex) 0.63 mg IH [id number] PRN PRN Reason: Shortness of Breath Losartan Potassium (Cozaar) 25 mg PEG DAILY [facility] Last Admin: 11/21/17 10:24 Dose: 25 mg Magnesium Oxide (Mag-Ox) 400 mg PEG DAILY [facility] Last Admin: 11/21/17 10:23 Dose: 400 mg Metoprolol Tartrate (Lopressor) 25 mg PO BID [facility] Last Admin: 11/21/17 17:01 Dose: 25 mg Oxycodone HCl (Oxycodone Immediate Release Tab) 5 mg PO Q6H PRN PRN Reason: Pain, severe (8-10) Pantoprazole Sodium (Protonix Inj) 40 mg IVP DAILY [facility] Last Admin: 11/21/17 10:26 Dose: 40 mg Potassium Chloride (Potassium Chloride Oral Soln) 20 meq PEG DAILY [facility] Last Admin: 11/21/17 10:26 Dose: 20 meq Saliva Substitute (Saliva Substitute) 2 ml PO Q2H [facility] Last Admin: 11/22/17 06:13 Dose: 2 ml Silver Sulfadiazine (Silvadene 1% 25 Gm) 0 gm TP BID [facility] Last Admin: 11/21/17 19:09 Dose: 25 gm Sodium Hypochlorite (Dakins Solution 0.5%) 500 ml TOP DAILY [facility] Last Admin: 11/21/17 12:16 Dose: Not Given - Labs Labs: 11/21/17 01:14 11/21/17 01:14 PT 14.8 SECONDS (9.4-12.5) H 11/16/17 18:05 INR 1.29 (0.93-1.08) H 11/16/17 18:05 APTT 47.9 Seconds (25.1-36.5) H 11/20/17 08:30 - Constitutional Appears: Chronically Ill - Head Exam Head Exam: NORMAL INSPECTION - Respiratory Exam Respiratory Exam: Decreased Breath Sounds - Cardiovascular Exam Cardiovascular Exam: +S1, +S2 - GI/Abdominal Exam GI & Abdominal Exam: Soft. absent: Tenderness Assessment and Plan - Assessment and Plan (Free Text) Plan: Assessment severe sepsis due to left gluteal necrotizing fasciitis S/P debridement POD #5, with multiple organisms growing from the wound history of severe sepsis S/P acute renal failure due to intra-abdominal infection with ascending colitis in this patient who developed right sided pneumohydrothorax S/P right sided chest tube placement history of severe sepsis with acute renal failure due to HCAP TIA COPD dementia HTN osteoarthritis chronic CHF cataracts Plan continue Zyvox and Merrem day 5 - patient planned for repeat debridement today and will follow up findings will continue to monitor clinically
--- NOTE | 2017-11-22 15:36 | PN ---
DATE: 11/22/2017 REASON FOR CONSULTATION: A 26-beat VT (AFib with rapid rate). SUBJECTIVE: Patient denies any chest pain, shortness of breath or any palpitations. OBJECTIVE: GENERAL: Not in apparent distress. VITAL SIGNS: Temperature afebrile, heart rate 92, blood pressure 149/64. HEENT: PERRLA, intact. NECK: Supple. No carotid bruit or thyromegaly. CHEST: Clear to auscultation. HEART: S1, S2 regular. ABDOMEN: Soft. EXTREMITIES: Clubbing and cyanosis negative. LABORATORY DATA: Blood workup as follows. WBC 8, hemoglobin 10.6, hematocrit 33.5, platelet count 485. Chemistry shows sodium 130, potassium 4.2, chloride 101, carbon dioxide 29, anion gap of 12, BUN 10, creatinine 0.6. Patient's TSH is 4.26. Cholesterol revealed total 66, LDL 30, HDL 27. Hemoglobin A1c pending. EKG shows normal size APCs. Telemetry strip reviewed, it is mostly possibly burst of atrial fibrillation. Patient had echo on 06/02/2017, read by Dr. Peace revealed normal LV size, normal aortic structure, normal mitral calcification, mild tricuspid regurgitation. RV systolic pressure 32. Calculated ejection fraction of 50%. Prior to that, the patient had an echo on 12/08/2006, also ejection fraction 60-65%. Serial EKG shows normal sinus, frequent APCs and most likely this is a burst of APCs and atrial fibrillation. No VT. IMPRESSION: History of hypertension, history of diabetes, history of peripheral arterial disease, dementia, history of stroke and history of dysphagia. Patient has a percutaneous endoscopic gastrostomy. Again, the reported telemetry strip ventricular tachycardia is actually atrial fibrillation, not ventricular tachycardia. RECOMMENDATIONS: We will increase metoprolol to 50 b.i.d. If no further episode of arrhythmia noted, we will discontinue Telemetry. Should the patient need debridement, patient is cleared from Cardiology point of view to go for debridement to the OR. No absolute contraindication for surgery. No evidence of ischemia. No evidence of arrhythmia in the last 24 hours. No evidence of congestive heart failure. The patient is cleared to go for because of underlying comorbidities. Continue perioperative beta-lloyd as ordered 50 b.i.d. We will also increase losartan to 50 from today and we will discontinue 25. Continue feeding through the PEG. Patient has a PEG. We will repeat the CBC, magnesium, phosphate, and chemistry tomorrow. Thank you Dr. Aguilar for providing us the opportunity in taking care of patient, Christy Blancas. Dl Vázquez MD
--- NOTE | 2017-11-22 16:03 | PCM.SURG1 ---
Surgeon's Initial Post Op Note - Surgeon's Notes Surgeon: Dr. Vizcaino Group Segment Consultant: Hill PGY2, June PGY1 Type of Anesthesia: IV Sedation Anesthesia Administered By: Dr. Horne Pre-Operative Diagnosis: Necrotizing fasciitis, sacral wound Operative Findings: sacral wound Post-Operative Diagnosis: Necrotizing fasciitis, sacral wound Operation Performed: debridement, irrigation, and wound vac application Specimen/Specimens Removed: N/A Estimated Blood Loss: EBL {In ML}: 10 Blood Products Given: N/A Post-Op Condition: Good Date of Surgery/Procedure: 11/22/17 Time of Surgery/Procedure: 16:03
[2017-11-22] MEDS ORDERED: HYDROmorphone 0.5 mg/0.5 ml ISec IVP PRN (16:05)
[2017-11-22] MEDS ORDERED: Lactated Ringer's 1,000 ML IV SCH (16:15)
--- NOTE | 2017-11-22 16:41 | CARD ---
APPROVED REPORT EKG Measurement Heart [id number] <Conclusion> Sinus rhythm with premature atrial complexes Incomplete RBBB Nonspecific ST abnormality, Abnormal ECG
[2017-11-23] MEDS: Saliva Substitute 44.3 ML PO SCH ×8 (01:00→14:59)
[2017-11-23] MEDS: Meropenem IV 1 gm in NS 50 ML IVPB SCH ×2 (05:08→15:08)
[2017-11-23 06:25] LABS: BASO # 0.02 K/mm3 (0.0-2.0); BASO % 0.1 % (0.0-3.0); EOS # 0.3 (0.0-0.7); EOS % 1.6 % (1.5-5.0); GRAN # 14.03 (1.4-6.5); GRAN % 80.6 % (50.0-68.0); HEMOGLOBIN 10.2 g/dL (14.0-18.0); LYMPH # 2.2 (1.2-3.4); LYMPH % 12.4 % (22.0-35.0); MEAN CELL VOLUME 75.4 fl (80.0-105.0); MEAN CORPUSCULAR HEMOGLOBIN 23.9 pg (25.0-35.0); MEAN CORPUSCULAR HGB CONC 31.7 g/dl (31.0-37.0); MEAN PLATELET VOLUME 8.7 fl (7.0-11.0); MONO # 0.9 (0.1-0.6); MONO % 5.3 % (1.0-6.0); RBC 4.27 10^6/uL (3.5-6.1); RED CELL DISTRIBUTION WIDTH 20.7 % (11.5-14.5); WHITE BLOOD COUNT 17.4 10^3/ul (4.5-11.0)
[2017-11-23 07:33] LABS: ALB/GLOB RATIO 0.8 (1.1-1.8); ALBUMIN 2.7 g/dL (3.0-4.8); ALT/SGPT 35 U/L (7-56); AST/SGOT 39 U/L (17-59); BLOOD UREA NITROGEN 13 mg/dL (7-21); GFR AFRICAN-AMERICAN > 60; GFR NON-AFRICAN AMERICAN > 60
--- NOTE | 2017-11-23 07:42 | CP.PCM.PN ---
Subjective - Date & Time of Evaluation Date of Evaluation: 11/23/17 Time of Evaluation: 06:50 - Subjective Subjective: General Surgery Note for Dr. Vizcaino Patient seen and examined at bedside. No acute event overnight. He is s/p sacral wound debridement, irrigation and wound vac application POD#1. Patient is awake but not oriented. Responds to verbal and tactile stimuli. ROS limited due to clinical condition. Objective - Vital Signs/Intake and Output Vital Signs (last 24 hours): Temp Pulse Resp BP Pulse Ox 98.2 F 65 18 135/66 100 11/22/17 22:00 11/22/17 22:00 11/22/17 22:00 11/22/17 22:00 11/22/17 22:00 Intake and Output: 11/23/17 11/23/17 06:59 18:59 Intake Total 1420 Output Total 600 Balance 820 - Medications Medications: Current Medications Acetaminophen (Tylenol 650mg/20.3ml Solution Ud) 650 mg PEG Q6H PRN PRN Reason: Pain, moderate (4-7) Aspirin (Ecotrin) 81 mg PO DAILY [facility] Last Admin: 11/22/17 11:05 Dose: 81 mg Collagenase (Santyl) 1 gm TOP BID [facility] Last Admin: 11/22/17 18:18 Dose: Not Given Donepezil HCl (Aricept) 5 mg PEG HS [facility] Last Admin: 11/22/17 21:44 Dose: 5 mg Hydromorphone HCl (Dilaudid) 0.5 mg IVP Q15M PRN PRN Reason: Pain, moderate (4-7) Stop: 11/23/17 16:06 Linezolid (Zyvox 600mg/300ml D5w) 600 mg in 300 mls @ 200 mls/hr IVPB Q12 RYLIE PRN Reason: Protocol Stop: 11/24/17 06:42 Last Admin: 11/22/17 21:44 Dose: 200 mls/hr Meropenem (Merrem Iv 1 Gm Premix) 50 mls @ 100 mls/hr IVPB Q8 RYLIE PRN Reason: Protocol Stop: 11/24/17 06:46 Last Admin: 11/23/17 05:08 Dose: 100 mls/hr Lactic Acid (Lac-Hydrin 12% Lotion (225 G)) 0 gm EXT DAILY [facility] Last Admin: 11/22/17 11:07 Dose: 2 applic Levalbuterol HCl (Xopenex) 0.63 mg IH [id number] PRN PRN Reason: Shortness of Breath Losartan Potassium (Cozaar) 50 mg PO DAILY [facility] Last Admin: 11/22/17 11:06 Dose: 50 mg Magnesium Oxide (Mag-Ox) 400 mg PEG DAILY [facility] Last Admin: 11/22/17 11:06 Dose: 400 mg Metoprolol Tartrate (Lopressor) 50 mg PO BID [facility] Last Admin: 11/22/17 18:07 Dose: 50 mg Oxycodone HCl (Oxycodone Immediate Release Tab) 5 mg PO Q6H PRN PRN Reason: Pain, severe (8-10) Last Admin: 11/22/17 19:30 Dose: 5 mg Pantoprazole Sodium (Protonix Inj) 40 mg IVP DAILY [facility] Last Admin: 11/22/17 11:07 Dose: 40 mg Potassium Chloride (Potassium Chloride Oral Soln) 20 meq PEG DAILY [facility] Last Admin: 11/22/17 11:07 Dose: 20 meq Saliva Substitute (Saliva Substitute) 2 ml PO Q2H [facility] Last Admin: 11/23/17 07:40 Dose: Not Given Silver Sulfadiazine (Silvadene 1% 25 Gm) 0 gm TP BID [facility] Last Admin: 11/22/17 17:59 Dose: Not Given Sodium Hypochlorite (Dakins Solution 0.5%) 500 ml TOP DAILY [facility] Last Admin: 11/22/17 10:01 Dose: Not Given - Labs Labs: 11/23/17 06:10 11/23/17 06:10 PT 13.3 SECONDS (9.4-12.5) H 11/22/17 06:30 INR 1.15 (0.93-1.08) H 11/22/17 06:30 APTT 47.9 Seconds (25.1-36.5) H 11/20/17 08:30 - Constitutional Appears: No Acute Distress, Chronically Ill - Head Exam Head Exam: ATRAUMATIC, NORMOCEPHALIC - Eye Exam Eye Exam: EOMI - ENT Exam ENT Exam: Mucous Membranes Moist - Respiratory Exam Respiratory Exam: NORMAL BREATHING PATTERN - Cardiovascular Exam Cardiovascular Exam: REGULAR RHYTHM - GI/Abdominal Exam GI & Abdominal Exam: Soft, Normal Bowel Sounds. absent: Tenderness - Extremities Exam Additional comments: bilateral offloading boots in place - Back Exam Additional comments: wound vac dressing intact and connected to Negative pressure at 125 mmHg - Neurological Exam Neurological Exam: Awake - Psychiatric Exam Psychiatric exam: Flat Affect - Skin Skin Exam: Dry, Warm Assessment and Plan - Assessment and Plan (Free Text) Assessment: 87M who presented with Necrotizing fasciitis and sacral s/p takeback for further sacral wound debridement, irrigation, and wound vac application -Wound vac on continuous suction -Wound vac change in 2 days -Wound care consult -Management as per primary -Further recommendations as per Dr. Carrillo Watkins PGY1
--- NOTE | 2017-11-23 07:56 | CP.PCM.PN ---
Subjective - Date & Time of Evaluation Date of Evaluation: 11/23/17 Time of Evaluation: 06:45 - Subjective Subjective: Lying in bed,awake, no distress Reason for consultation and follow up: Rapid atrial fibrillation, history of hypertension, diabetes, pheripheral vascular disease Seen and examined by me and Dr. Vázquez Objective - Vital Signs/Intake and Output Vital Signs (last 24 hours): Temp Pulse Resp BP Pulse Ox 98.2 F 65 18 135/66 100 11/22/17 22:00 11/22/17 22:00 11/22/17 22:00 11/22/17 22:00 11/22/17 22:00 Intake and Output: 11/23/17 11/23/17 06:59 18:59 Intake Total 1420 Output Total 600 Balance 820 - Medications Medications: Current Medications Acetaminophen (Tylenol 650mg/20.3ml Solution Ud) 650 mg PEG Q6H PRN PRN Reason: Pain, moderate (4-7) Aspirin (Ecotrin) 81 mg PO DAILY [facility] Last Admin: 11/22/17 11:05 Dose: 81 mg Collagenase (Santyl) 1 gm TOP BID [facility] Last Admin: 11/22/17 18:18 Dose: Not Given Donepezil HCl (Aricept) 5 mg PEG HS [facility] Last Admin: 11/22/17 21:44 Dose: 5 mg Hydromorphone HCl (Dilaudid) 0.5 mg IVP Q15M PRN PRN Reason: Pain, moderate (4-7) Stop: 11/23/17 16:06 Linezolid (Zyvox 600mg/300ml D5w) 600 mg in 300 mls @ 200 mls/hr IVPB Q12 RYLIE PRN Reason: Protocol Stop: 11/24/17 06:42 Last Admin: 11/22/17 21:44 Dose: 200 mls/hr Meropenem (Merrem Iv 1 Gm Premix) 50 mls @ 100 mls/hr IVPB Q8 RYLIE PRN Reason: Protocol Stop: 11/24/17 06:46 Last Admin: 11/23/17 05:08 Dose: 100 mls/hr Lactic Acid (Lac-Hydrin 12% Lotion (225 G)) 0 gm EXT DAILY [facility] Last Admin: 11/22/17 11:07 Dose: 2 applic Levalbuterol HCl (Xopenex) 0.63 mg IH [id number] PRN PRN Reason: Shortness of Breath Losartan Potassium (Cozaar) 50 mg PO DAILY [facility] Last Admin: 11/22/17 11:06 Dose: 50 mg Magnesium Oxide (Mag-Ox) 400 mg PEG DAILY [facility] Last Admin: 11/22/17 11:06 Dose: 400 mg Metoprolol Tartrate (Lopressor) 50 mg PO BID [facility] Last Admin: 11/22/17 18:07 Dose: 50 mg Oxycodone HCl (Oxycodone Immediate Release Tab) 5 mg PO Q6H PRN PRN Reason: Pain, severe (8-10) Last Admin: 11/22/17 19:30 Dose: 5 mg Pantoprazole Sodium (Protonix Inj) 40 mg IVP DAILY [facility] Last Admin: 11/22/17 11:07 Dose: 40 mg Potassium Chloride (Potassium Chloride Oral Soln) 20 meq PEG DAILY [facility] Last Admin: 11/22/17 11:07 Dose: 20 meq Saliva Substitute (Saliva Substitute) 2 ml PO Q2H [facility] Last Admin: 11/23/17 07:40 Dose: Not Given Silver Sulfadiazine (Silvadene 1% 25 Gm) 0 gm TP BID [facility] Last Admin: 11/22/17 17:59 Dose: Not Given Sodium Hypochlorite (Dakins Solution 0.5%) 500 ml TOP DAILY [facility] Last Admin: 11/22/17 10:01 Dose: Not Given - Labs Labs: 11/23/17 06:10 11/23/17 06:10 PT 13.3 SECONDS (9.4-12.5) H 11/22/17 06:30 INR 1.15 (0.93-1.08) H 11/22/17 06:30 APTT 47.9 Seconds (25.1-36.5) H 11/20/17 08:30 - Constitutional Appears: No Acute Distress - Eye Exam Eye Exam: Normal appearance - ENT Exam ENT Exam: Mucous Membranes Moist - Respiratory Exam Respiratory Exam: Decreased Breath Sounds, NORMAL BREATHING PATTERN - Cardiovascular Exam Cardiovascular Exam: +S1, +S2 - GI/Abdominal Exam GI & Abdominal Exam: Soft, Normal Bowel Sounds Additional comments: PEG - Exam Additional comments: otero catheter - Extremities Exam Additional comments: PICC - Neurological Exam Neurological Exam: Alert, Awake - Skin Skin Exam: Normal Color, Warm Additional comments: sacral decubitus with wound vac Assessment and Plan - Assessment and Plan (Free Text) Assessment: An 87 year old male who was brought to the ER due to vomiting and worsening sacral decubitus.History of hypertension, COPD,CVA,TIA, dementia,BPH, peripheral vascular disease. Underwent sacral wound debridement for necrotizing fascitis. On contact isolation. Had rapid atrial fibrillation thus cardiology was consulted. Plan: Contact isolation maintained Wound vac intact (sacral wound) Cardiac status stable Heart rate and BP controlled No more episodes of Afib Continue current treatment Continue current medicines Will follow up Plan and treatment discussed with Dr. Vázquez
[2017-11-23] MEDS: Silver Sulfadiazine 1% Cream (25 gm) TP SCH (10:00)
[2017-11-23] MEDS: Collagenase 250 Units/gm Ointment(30 gm) TOP SCH (10:00)
[2017-11-23] MEDS: Linezolid 600 mg in D5W 300 ml 600 MG/300 ML BAG IVPB SCH (10:27)
[2017-11-23] MEDS: Magnesium Oxide 400 mg Tab UD PEG SCH (10:29)
[2017-11-23] MEDS: Potassium Chloride 20 mEq/15 ml LIQ UD PEG SCH (10:29)
[2017-11-23] MEDS: Ammonium Lactate 12% Lotion (225 g) EXT SCH (10:31)
--- NOTE | 2017-11-23 13:27 | CP.PCM.PN ---
<Aman Allred - Last Filed: 11/23/17 13:45> Subjective - Date & Time of Evaluation Date of Evaluation: 11/23/17 Time of Evaluation: 13:26 - Subjective Subjective: Podiatry Progress Note for Dr. Hewitt 87M seen and evaluated at bedside with Dr. Hewitt for left foot heel ulceration. Patient is nonverbal during examination but is awake alert. Per nursing, no acute overnight events. Patient had I and D of sacral decubitus ulceration with Dr Vizcaino yesterday. Multipodus boots seen to be in place. Patient's C/D/I Objective - Vital Signs/Intake and Output Vital Signs (last 24 hours): Temp Pulse Resp BP Pulse Ox 97.9 F 92 H 20 149/75 100 11/23/17 06:00 11/23/17 10:29 11/23/17 06:00 11/23/17 10:29 11/23/17 06:00 Intake and Output: 11/23/17 11/23/17 06:59 18:59 Intake Total 1420 Output Total 600 Balance 820 - Medications Medications: Current Medications Acetaminophen (Tylenol 650mg/20.3ml Solution Ud) 650 mg PEG Q6H PRN PRN Reason: Pain, moderate (4-7) Aspirin (Ecotrin) 81 mg PO DAILY [facility] Last Admin: 11/23/17 10:29 Dose: 81 mg Collagenase (Santyl) 1 gm TOP BID [facility] Last Admin: 11/22/17 18:18 Dose: Not Given Donepezil HCl (Aricept) 5 mg PEG HS [facility] Last Admin: 11/22/17 21:44 Dose: 5 mg Hydromorphone HCl (Dilaudid) 0.5 mg IVP Q15M PRN PRN Reason: Pain, moderate (4-7) Stop: 11/23/17 16:06 Linezolid (Zyvox 600mg/300ml D5w) 600 mg in 300 mls @ 200 mls/hr IVPB Q12 RYLIE PRN Reason: Protocol Stop: 11/24/17 06:42 Last Admin: 11/23/17 10:27 Dose: 200 mls/hr Meropenem (Merrem Iv 1 Gm Premix) 50 mls @ 100 mls/hr IVPB Q8 RYLIE PRN Reason: Protocol Stop: 11/24/17 06:46 Last Admin: 11/23/17 05:08 Dose: 100 mls/hr Lactic Acid (Lac-Hydrin 12% Lotion (225 G)) 0 gm EXT DAILY [facility] Last Admin: 11/23/17 10:31 Dose: 1 applic Levalbuterol HCl (Xopenex) 0.63 mg IH [id number] PRN PRN Reason: Shortness of Breath Losartan Potassium (Cozaar) 50 mg PO DAILY [facility] Last Admin: 11/23/17 10:29 Dose: 50 mg Magnesium Oxide (Mag-Ox) 400 mg PEG DAILY [facility] Last Admin: 11/23/17 10:29 Dose: 400 mg Metoprolol Tartrate (Lopressor) 50 mg PO BID [facility] Last Admin: 11/23/17 10:29 Dose: 50 mg Oxycodone HCl (Oxycodone Immediate Release Tab) 5 mg PO Q6H PRN PRN Reason: Pain, severe (8-10) Last Admin: 11/22/17 19:30 Dose: 5 mg Pantoprazole Sodium (Protonix Inj) 40 mg IVP DAILY [facility] Last Admin: 11/23/17 10:28 Dose: 40 mg Potassium Chloride (Potassium Chloride Oral Soln) 20 meq PEG DAILY [facility] Last Admin: 11/23/17 10:29 Dose: 20 meq Saliva Substitute (Saliva Substitute) 2 ml PO Q2H [facility] Last Admin: 11/23/17 10:31 Dose: 2 ml Silver Sulfadiazine (Silvadene 1% 25 Gm) 0 gm TP BID [facility] Last Admin: 11/22/17 17:59 Dose: Not Given Sodium Hypochlorite (Dakins Solution 0.5%) 500 ml TOP DAILY [facility] Last Admin: 11/22/17 10:01 Dose: Not Given - Labs Labs: 11/23/17 06:10 11/23/17 06:10 PT 13.3 SECONDS (9.4-12.5) H 11/22/17 06:30 INR 1.15 (0.93-1.08) H 11/22/17 06:30 APTT 47.9 Seconds (25.1-36.5) H 11/20/17 08:30 - Constitutional Appears: Well, Non-toxic, No Acute Distress - Head Exam Head Exam: ATRAUMATIC, NORMOCEPHALIC - Extremities Exam Additional comments: LE focused exam: Vasc: DP and PT pulses non-palpable b/l. CFT > 3 seconds to all digits. Skin temperature warm to cool from proximal to distal. No edema noted to b/l LE Neuro: Unable to assess due to patient's mental state Derm: Unstageable pressure ulcer noted to the medial aspect of left heel measuring approximately 4 cm by 3.5 cm with fibronecrotic base noted, no malodor. Serous drainage noted to wound today. No underlying fluctuance noted. Minimal periwound erythema noted MSK: Minimal tenderness on palpation to left heel ulcer. No other gross deformities noted. Unable to assess patient's MMT due to mental state - Neurological Exam Neurological Exam: Alert, Awake - Psychiatric Exam Psychiatric exam: Normal Affect, Normal Mood Assessment and Plan - Assessment and Plan (Free Text) Assessment: 87M seen and evaluated at bedside with Dr. Hewitt for mildly infected left foot heel ulceration Plan: Patient seen and evaluated with Dr. Hewitt Afebrile, WBC 17.4 from 18.6 11/16 Wound cx: Klebsiella Pneumoniae, MRSA, E Faecalis 11/17 Venous duplex: No evidence of DVT b/l 11/20: Left foot xray: Normal radiograph L foot 11/20: FERNANDO/PVR: Distal SFA, popliteal and/or trifurcation disease; left tibial occlusive disease Vascular Surgery Consulted for evaluation for possible intervention - will f/u recs Patient wound dressed with xeroform, ABD, DSD No plan for surgical intervention at this time Podiatry will continue to follow while patient in house <Judith Hewitt - Last Filed: 11/26/17 19:08> Objective - Vital Signs/Intake and Output Vital Signs (last 24 hours): Temp Pulse Resp BP Pulse Ox 98 F 66 18 159/67 H 96 11/23/17 14:00 11/23/17 17:54 11/23/17 14:00 11/23/17 17:54 11/23/17 14:00 - Labs Labs: 11/23/17 06:10 11/23/17 06:10 PT 13.3 SECONDS (9.4-12.5) H 11/22/17 06:30 INR 1.15 (0.93-1.08) H 11/22/17 06:30 APTT 47.9 Seconds (25.1-36.5) H 11/20/17 08:30 Attending/Attestation - Attestation I have personally seen and examined this patient.: Yes I have fully participated in the care of the patient.: Yes I have reviewed all pertinent clinical information, including history, physical exam and plan: Yes
[2017-11-23 14:59] VITALS: BP 159/67; PULSE 66; RESP 18; TEMP 98; O2SAT 96
[2017-11-23] MEDS: Dakin's Topical 0.5%-Full Strength (480 ml) TOP SCH (14:59)
--- NOTE | 2017-11-23 15:54 | PN ---
DATE: 11/22/2017 SUBJECTIVE: Patient is comfortable in bed, responds to calling his name, opens his eyes, moves his hands. He has no respiratory distress. No chest pain. Getting healed. Currently on IV antibiotics. He is getting Zyvox and meropenem. PHYSICAL EXAMINATION: GENERAL: Family next to the bedside. VITAL SIGNS: Temperature 98, heart rate 82, blood pressure 150/70, respirations 18, satting 97% on 3 liters of nasal cannula. HEAD AND NECK: Normal. No JVD. No thyromegaly. CHEST: Clear bilaterally. CARDIAC: First sound and second sound normal. ABDOMEN: Soft. PEG tube site is clean. No redness. Nontender. There is mild epigastric discomfort on examination; otherwise, bowel sounds intact. EXTREMITIES: There is no edema. Healed on both legs. NEUROLOGIC: Patient is weak and is bedridden. LABORATORY DATA: On 10/22/2017, white count 18.6, hemoglobin 10.7, hematocrit 33.5. Sodium 138, potassium 4.2, chloride , bicarbonate 29. BUN and creatinine 23 and 0.6. Liver function test is normal. Magnesium 1.9, phosphorus 2.3. IMPRESSION AND PLAN: Examination sacral decubitus, large 5 cm deep stage IV, it is covered, large sacral decubitus sepsis secondary to cellulitis due to large decubitus ulcers stage IV, due to decubitus acute chronic obstructive pulmonary disease, on Xopenex continue current treatment, current medications . Cody Aguilar MD
--- NOTE | 2017-11-23 17:31 | CP.PCM.PN ---
Subjective - Date & Time of Evaluation Date of Evaluation: 11/23/17 Time of Evaluation: 11:20 - Subjective Subjective: No fevers, not in distress. Objective - Vital Signs/Intake and Output Vital Signs (last 24 hours): Temp Pulse Resp BP Pulse Ox 97.9 F 92 H 20 149/75 100 11/23/17 06:00 11/23/17 10:29 11/23/17 06:00 11/23/17 10:29 11/23/17 06:00 Intake and Output: 11/23/17 11/23/17 06:59 18:59 Intake Total 1420 Output Total 600 Balance 820 - Medications Medications: Current Medications Acetaminophen (Tylenol 650mg/20.3ml Solution Ud) 650 mg PEG Q6H PRN PRN Reason: Pain, moderate (4-7) Aspirin (Ecotrin) 81 mg PO DAILY [facility] Last Admin: 11/23/17 10:29 Dose: 81 mg Collagenase (Santyl) 1 gm TOP BID [facility] Last Admin: 11/22/17 18:18 Dose: Not Given Donepezil HCl (Aricept) 5 mg PEG HS [facility] Last Admin: 11/22/17 21:44 Dose: 5 mg Hydromorphone HCl (Dilaudid) 0.5 mg IVP Q15M PRN PRN Reason: Pain, moderate (4-7) Stop: 11/23/17 16:06 Linezolid (Zyvox 600mg/300ml D5w) 600 mg in 300 mls @ 200 mls/hr IVPB Q12 RYLIE PRN Reason: Protocol Stop: 11/24/17 06:42 Last Admin: 11/23/17 10:27 Dose: 200 mls/hr Meropenem (Merrem Iv 1 Gm Premix) 50 mls @ 100 mls/hr IVPB Q8 RYLIE PRN Reason: Protocol Stop: 11/24/17 06:46 Last Admin: 11/23/17 05:08 Dose: 100 mls/hr Lactic Acid (Lac-Hydrin 12% Lotion (225 G)) 0 gm EXT DAILY [facility] Last Admin: 11/23/17 10:31 Dose: 1 applic Levalbuterol HCl (Xopenex) 0.63 mg IH [id number] PRN PRN Reason: Shortness of Breath Losartan Potassium (Cozaar) 50 mg PO DAILY [facility] Last Admin: 11/23/17 10:29 Dose: 50 mg Magnesium Oxide (Mag-Ox) 400 mg PEG DAILY [facility] Last Admin: 11/23/17 10:29 Dose: 400 mg Metoprolol Tartrate (Lopressor) 50 mg PO BID [facility] Last Admin: 11/23/17 10:29 Dose: 50 mg Oxycodone HCl (Oxycodone Immediate Release Tab) 5 mg PO Q6H PRN PRN Reason: Pain, severe (8-10) Last Admin: 11/22/17 19:30 Dose: 5 mg Pantoprazole Sodium (Protonix Inj) 40 mg IVP DAILY [facility] Last Admin: 11/23/17 10:28 Dose: 40 mg Potassium Chloride (Potassium Chloride Oral Soln) 20 meq PEG DAILY [facility] Last Admin: 11/23/17 10:29 Dose: 20 meq Saliva Substitute (Saliva Substitute) 2 ml PO Q2H [facility] Last Admin: 11/23/17 10:31 Dose: 2 ml Silver Sulfadiazine (Silvadene 1% 25 Gm) 0 gm TP BID [facility] Last Admin: 11/22/17 17:59 Dose: Not Given Sodium Hypochlorite (Dakins Solution 0.5%) 500 ml TOP DAILY [facility] Last Admin: 11/22/17 10:01 Dose: Not Given - Labs Labs: 11/23/17 06:10 11/23/17 06:10 PT 13.3 SECONDS (9.4-12.5) H 11/22/17 06:30 INR 1.15 (0.93-1.08) H 11/22/17 06:30 APTT 47.9 Seconds (25.1-36.5) H 11/20/17 08:30 - Constitutional Appears: Chronically Ill - Head Exam Head Exam: NORMAL INSPECTION - Respiratory Exam Respiratory Exam: Decreased Breath Sounds - Cardiovascular Exam Cardiovascular Exam: +S1, +S2 - GI/Abdominal Exam GI & Abdominal Exam: Soft. absent: Tenderness Assessment and Plan - Assessment and Plan (Free Text) Plan: Assessment severe sepsis due to left gluteal necrotizing fasciitis S/P debridement POD #6, with multiple organisms growing from the wound S/P repeat debridement history of severe sepsis S/P acute renal failure due to intra-abdominal infection with ascending colitis in this patient who developed right sided pneumohydrothorax S/P right sided chest tube placement history of severe sepsis with acute renal failure due to HCAP TIA COPD dementia HTN osteoarthritis chronic CHF cataracts Plan continue Zyvox and Merrem day 6 - as per surgery, repeat debridement showed necrotic material was removed - will need at least 14 days of antibiotics with outpatient follow up with Surgery to see if he eventually may still need further debridement or not anymore (ie. to check the wound)
--- NOTE | 2017-11-25 04:47 | DS ---
HISTORY OF PRESENT ILLNESS: The patient is being admitted with severe sepsis due to large stage IV decubitus ulcer 5 cm deep to the bone. Patient had debridement, has wound VAC applied, had of the debridement of the necrotic tissue and seems doing better on IV Zyvox and meropenem. Patient is seen by ID consults, Surgical consults, seen by multiple consultations, Hematology consults. He did got transfusions. There is no active bleeding, had questionable DVT. Ultrasound was done was negative. Dr. Antony Alex was called in for IV filter, but he exclude any DVT in his conditions. Patient is stable. No chest pain, no short of breath, just having pain from decubitus and recommendation for ID. Continue IV antibiotics for 2 weeks plus wound VAC and monitor condition clinically. Recommend also every three days basic metabolic panel. Vancomycin trough and peak has been recommended and I spoke with the nurse in the rehab to get Dr. Mcdowell, TRACIE consultation to see the patient on a regular basis and to admit the patient under Dr. Sarah Sheriff over the [facility]. Patient is otherwise stable. No chest pain. No short of breath. Will be discharged over there to be followed. PHYSICAL EXAMINATION: VITAL SIGNS: Temperature 98, heart rate 66, blood pressure 159/67, respirations 18, saturation 96%. HEAD AND NECK: Normal. No JVD. No thyromegaly. CHEST: Clear bilaterally. CARDIAC: First sound and second sound normal. ABDOMEN: Soft, nontender. EXTREMITIES: No edema. NEUROLOGICAL: Patient has left side weakness. He is having dysarthria, but he is able to respond to calling his name and to questions. He does have dementia. SKIN: Large decubitus ulcer. Wound VAC applied. Patient have been doing well and seems stable. LABORATORY STUDY: On discharge, white count 17.4, hemoglobin 10.2, hematocrit 32.2, platelets 463. Chemistry: Sodium 135, potassium 4.5, chloride 101, bicarbonate 26, BUN 13, creatinine 0.6. Blood sugar . Calcium 8, magnesium 2.4. Liver function test is normal. DISCHARGE DIAGNOSES: 1. Sepsis due to large deep decubitus ulcer. 2. Stage IV decubitus ulcer. 3. Anemia. 4. Chronic obstructive pulmonary disease. 5. Dementia. 6. Hypertension. 7. Generalized weakness, bedridden. 8. Hypercholesterolemia. PLAN: Discharge to [facility]. Follow up recommendations. Cody Aguilar MD
--- NOTE | 2017-11-28 21:42 | OP ---
PROCEDURE DATE: 11/22/2017 PREOPERATIVE DIAGNOSIS: Necrotizing fasciitis. POSTOPERATIVE DIAGNOSIS: Necrotizing fasciitis. PROCEDURE: Debridement of the sacral wound with irrigation and a wound VAC. DESCRIPTION OF PROCEDURE: In the operating room, the patient was identified by name, name of procedure, laterality, and my tracey. The area was prepped with Betadine and then draped very nicely. At the successful end of the timeout, the patient was placed on the right side down, left side up. The area was examined. There were areas of necrosis that were debrided with a scissor and a blade, followed by the Misonix. When the old drains were removed and explored, the areas were improved and a wound VAC was applied. The patient was taken to the recovery room in good condition after sponge and needle counts were declared correct and the wound dressings were applied. Morgan Vizcaino MD
--- NOTE | 2017-12-05 08:32 | PQF ---
PROVIDER RESPONSE TEXT: Sharp debridement with 15 blade,scissors and Miconex probe. To bone. Abscess noted to rectum and r hi p. Drains placed. REVIEWER QUERY TEXT: Debridement Type Debridement is documented in the Medical Record. Please specify the type and extent of debridement to include the method and instruments used. Depth of tissue removed: Such as: -- Skin -- Subcutaneous tissue -- Fascia -- Muscle -- Bone -- Other, please specify The patient's Clinical Indicators include: PT with stage-4 saral decubitus ulcer=11/17 debridement (excisional or non-excisisonal); need depth of tissue debrided Query created by: Mary Lagunas on 11/24/2017 9:12 AM Electronically signed by: Morgan Vizcaino MD 12/05/2017 8:29 AM
== END 2017-11-23 20:14 | DRG 853 ==
LOC: ED 16:22 → ERH 22:10 → 2RNO 11-17 01:20 → 5RSO 11-22 22:18 → ERH 11-22 22:25 → 5RSO 11-22 22:27
PROVIDERS: ADMIT Internal Medicine; ATTEND Internal Medicine
PROC: 0JD70ZZ Extraction of Back Subcutaneous Tissue and Fascia, Open Approach (ICD-10-PCS; 2017-11-17)
PROC: 30233N1 Transfusion of Nonautologous Red Blood Cells into Peripheral Vein, Percutaneous Approach (ICD-10-PCS; principal; 2017-11-18)
PROC: B54MZZA Ultrasonography of Right Upper Extremity Veins, Guidance (ICD-10-PCS; 2017-11-22)
PROC: 0QB10ZZ Excision of Sacrum, Open Approach (ICD-10-PCS; 2017-11-22)
PROC: 05H533Z Insertion of Infusion Device into Right Subclavian Vein, Percutaneous Approach (ICD-10-PCS; 2017-11-22 14:30)
DX: A41.9 Sepsis, unspecified organism (principal); L89.154 Pressure ulcer of sacral region, stage 4; M72.6 Necrotizing fasciitis; K61.3 Ischiorectal abscess; L03.311 Cellulitis of abdominal wall; I82.413 Acute embolism and thrombosis of femoral vein, bilateral; I47.2 Ventricular tachycardia; R64 Cachexia; I13.10 Hypertensive heart and chronic kidney disease without heart failure, with stage 1 through stage 4 chronic kidney disease, or unspecified chronic kidney disease; L89.620 Pressure ulcer of left heel, unstageable; B96.1 Klebsiella pneumoniae [K. pneumoniae] as the cause of diseases classified elsewhere; B95.62 Methicillin resistant Staphylococcus aureus infection as the cause of diseases classified elsewhere; J44.9 Chronic obstructive pulmonary disease, unspecified; R65.20 Severe sepsis without septic shock; K52.9 Noninfective gastroenteritis and colitis, unspecified; E11.51 Type 2 diabetes mellitus with diabetic peripheral angiopathy without gangrene; I48.91 Unspecified atrial fibrillation; N18.9 Chronic kidney disease, unspecified; E11.22 Type 2 diabetes mellitus with diabetic chronic kidney disease; I08.3 Combined rheumatic disorders of mitral, aortic and tricuspid valves; I45.10 Unspecified right bundle-branch block; E11.36 Type 2 diabetes mellitus with diabetic cataract; D64.9 Anemia, unspecified; M19.90 Unspecified osteoarthritis, unspecified site; E78.00 Pure hypercholesterolemia, unspecified; E78.5 Hyperlipidemia, unspecified; F03.90 Unspecified dementia, unspecified severity, without behavioral disturbance, psychotic disturbance, mood disturbance, and anxiety; G89.29 Other chronic pain; N40.0 Benign prostatic hyperplasia without lower urinary tract symptoms; R13.10 Dysphagia, unspecified; Z79.82 Long term (current) use of aspirin; Z74.01 Bed confinement status; Z87.01 Personal history of pneumonia (recurrent); Z86.73 Personal history of transient ischemic attack (TIA), and cerebral infarction without residual deficits; Z93.1 Gastrostomy status

== ENCOUNTER 2017-12-11 08:44 | Inpatient (IN) | payer MEDICARE, MEDICAID ==
[2017-12-11] MEDS ORDERED: Sodium Chloride 0.9% 500 ML IV STA (09:28)
[2017-12-11 10:16] LABS: VENOUS BLOOD GAS BASE EXCESS 5.5 mmol/L (0.0-2.0); VENOUS BLOOD GAS PO2 30 mm/Hg (30-55); VENOUS BLOOD PH 7.42 (7.32-7.43)
[2017-12-11 10:21] LABS: BASO # 0.04 K/mm3 (0.0-2.0); BASO % 0.2 % (0.0-3.0); GRAN # 19.28 (1.4-6.5); GRAN % 82.5 % (50.0-68.0); HEMOGLOBIN 9.7 g/dL (14.0-18.0); LYMPH # 1.9 (1.2-3.4); LYMPH % 8.3 % (22.0-35.0); MEAN CORPUSCULAR HGB CONC 31.6 g/dl (31.0-37.0); MEAN PLATELET VOLUME 9.4 fl (7.0-11.0); MONO # 2.1 (0.1-0.6); RBC 4.04 10^6/uL (3.5-6.1); RED CELL DISTRIBUTION WIDTH 23.1 % (11.5-14.5); WHITE BLOOD COUNT 23.4 10^3/ul (4.5-11.0)
[2017-12-11 10:26] LABS: INR 1.42 (0.93-1.08); PARTIAL THROMBOPLASTIN TIME 30.3 Seconds (25.1-36.5); PROTHROMBIN TIME 16.4 SECONDS (9.4-12.5)
[2017-12-11 10:41] LABS: ALB/GLOB RATIO 0.8 (1.1-1.8); ALBUMIN 2.8 g/dL (3.0-4.8); ALT/SGPT 61 U/L (7-56); AST/SGOT 67 U/L (17-59); BLOOD UREA NITROGEN 62 mg/dL (7-21); GFR AFRICAN-AMERICAN > 60; GFR NON-AFRICAN AMERICAN 52; TROPONIN I 0.03 ng/mL
[2017-12-11 10:42] LABS: URINE BILIRUBIN NEGATIVE (NEGATIVE); URINE BLOOD NEGATIVE (NEGATIVE); URINE GLUCOSE (UA) NEGATIVE (NEGATIVE); URINE LEUKOCYTE ESTERASE SMALL Leu/uL (NEGATIVE); URINE PROTEIN 100 mg/dL (<30 mg/dL); URINE UROBILINOGEN 0.2 E.U./dL (<1 E.U./dL)
[2017-12-11 10:44] LABS: URINE APPEARANCE TURBID (CLEAR); URINE COLOR YELLOW (YELLOW)
[2017-12-11 10:47] LABS: URINE BACTERIA MANY (NEG); URINE COARSE GRANULAR CAST LARGE /hpf (0-2)
--- NOTE | 2017-12-11 10:48 | ED PDOC ---
Arrival/HPI - General Chief Complaint: Fever Time Seen by Provider: 12/11/17 08:59 Historian: Patient, Family, Longterm EM Caveat: Acuity of Condition, Unstable Vital Signs, Dementia, Language Barrier - History of Present Illness Narrative History of Present Illness (Text): 12/11/17 10:45 A 87 year old male brought into the emergency department by EMS from halfway for a fever since yesterday. Patient was noted to have a temperature of 100.6 today. He was given Tylenol prior to arrival. As per [facility], patient recently diagnosed with C.diff and sent in for further evaluation. Patient previously admitted for sepsis and sacral decubitus ulcer stage 4. Patient denies any complaints at this time. ROS limited. PMD: Dr. Cody Aguilar Time/Duration: Other (yesterday) Symptom Onset: Gradual Symptom Course: Unchanged Quality: Unable to Describe Severity Level: 2 Activities at Onset: Rest Context: Home ([facility]) Past Medical History - Provider Review Nursing Documentation Reviewed: Yes - Travel History Have you recently traveled outside [place] w/in the past 3 mons?: No - Past History Past History: Non-Contributing - Infectious Disease Hx of Infectious Diseases: None - Tetanus Immunization Tetanus Immunization: Unknown - Cardiac Hx Hypertension: Yes Hx Pacemaker: No - Pulmonary Hx Chronic Obstructive Pulmonary Disease (COPD): Yes - Neurological HX Cerebrovascular Accident: Yes (TIA) - HEENT Hx HEENT Disorder: Yes (WEARS RX GLASSES) Hx Cataracts: Yes - Renal Hx Renal Disorder: Yes - Endocrine/Metabolic Hx Endocrine Disorders: No - Hematological/Oncological Hx Blood Transfusions: Yes Hx Blood Transfusion Reaction: No (Pt unable to answer) - Integumentary Hx Dermatological Disorder: Yes (MULTIPLE ROUND OLD AGE SPOTS TO FACE,ARMS) - Musculoskeletal/Rheumatological Hx Arthritis: Yes - Gastrointestinal Other/Comment: +peg tube on LLQ - Genitourinary/Gynecological Hx Genitourinary Disorders: Yes - Psychiatric Hx Psychophysiologic Disorder: No Hx Substance Use: No - Past Surgical History Past Surgical History: No Previous - Surgical History Hx Mastectomy: No - Anesthesia Hx Anesthesia Reactions: No (Pt unable to answer) Hx Malignant Hyperthermia: No (Pt unable to answer) - Suicidal Assessment Feels Threatened In Home Enviroment: No Family/Social History - Physician Review Nursing Documentation Reviewed: Yes Family/Social History: No Known Family HX Smoking Status: Unknown If Ever Smoked Hx Alcohol Use: Yes (OCCASIONAL WINE H/O) Hx Substance Use: No Hx Substance Use Treatment: No Allergies/Home Meds Allergies/Adverse Reactions: Allergies No Known Allergies Allergy (Verified 12/11/17 09:04) Home Medications: Home Meds Medication Instructions Recorded Confirmed Acetaminophen [Tylenol 160mg/5ml 20 ml GT Q4 PRN 12/11/17 12/11/17 elixir (120ml)] Albuterol/Ipratropium [Duoneb 3 3 ml NEB Q8 12/11/17 12/11/17 mg/0.5 mg (3 ml) UD] Aspirin [Aspirin Chewable] 81 mg GT DAILY 12/11/17 12/11/17 Azithromycin 500MG/NS 250ml 500 mg IV DAILY 12/11/17 12/11/17 [Zithromax 500mg in NS] Collagenase [Santyl] 1 applic TOP DAILY 12/11/17 12/11/17 Donepezil [Aricept] 5 mg GT HS 12/11/17 12/11/17 Levalbuterol [Xopenex] 3 ml NEB Q6 PRN 12/11/17 12/11/17 Lidocaine 5% [Lidoderm] 1 applic TOP DAILY 12/11/17 12/11/17 Loperamide HCl [Imodium A-D] 1 tab GT Q8 PRN 12/11/17 12/11/17 Losartan [Cozaar] 50 mg GT DAILY 12/11/17 12/11/17 Magnesium Oxide [Magnesium] 400 mg GT DAILY 12/11/17 12/11/17 Meropenem IV 1 gm in NS [Merrem IV 1 g IV Q8 12/11/17 12/11/17 1 gm Premix] Metoprolol Tartrate 50 mg GT BID 12/11/17 12/11/17 Multivit-Minerals/Ferrous Fum 5 ml GT DAILY 12/11/17 12/11/17 [Multivitamin Liquid] Pantoprazole [Protonix EC Tab] 40 mg GT DAILY 12/11/17 12/11/17 Potassium Chloride 20 meq GT DAILY 12/11/17 12/11/17 Silver Sulfadiazine 1% [Silvadene 1 appl TOP DAILY 12/11/17 12/11/17 1%] Vancomycin [Vancocin (Oral/Rectal 125 mg GT Q6 12/11/17 12/11/17 USE)] Vancomycin [Vancomycin Inj] 750 mg IV DAILY 12/11/17 12/11/17 oxyCODONE [oxyCODONE Immediate 5 mg GT Q6 PRN 12/11/17 12/11/17 Release Tab] Review of Systems - Review of Systems Systems not reviewed;Unavailable: Unstable Vital Signs Constitutional: Fatigue, Fevers Eyes: Normal. absent: Vision Changes ENT: Normal Respiratory: Normal. absent: SOB, Cough Cardiovascular: Normal. absent: Chest Pain Gastrointestinal: Stool Changes, Diarrhea, Appetite Changes. absent: Abdominal Pain, Constipation, Nausea, Vomiting, Hematochezia Genitourinary Male: Other (indwelling cath) Musculoskeletal: Normal Skin: Ulcer (sacral decubitus stage IV with wound vac) Neurological: Normal Endocrine: Normal Physical Exam Vital Signs Reviewed: Yes Vital Signs Temp Pulse Resp BP Pulse Ox 12/11/17 12:00 108 H 19 122/62 91 L 12/11/17 11:45 20 118/66 91 L 12/11/17 11:30 112 H 20 112/60 92 L 12/11/17 11:15 110 H 20 110/57 L 92 L 12/11/17 11:01 115 H 18 101/57 L 93 L 12/11/17 10:15 110 H 20 144/73 91 L 12/11/17 10:00 114 H 21 153/81 H 91 L 12/11/17 09:04 100.6 F H 105 H 19 115/71 91 L Temperature: Febrile Blood Pressure: Normal Pulse: Tachycardic Respiratory Rate: Normal Appearance: Positive for: Non-Toxic, Ill-Appearing, Uncomfortable Pain Distress: None Mental Status: Positive for: Confused, other (Somnolent, Aphasic) - Systems Exam Head: Present: Atraumatic, Normocephalic Pupils: Present: PERRL Extroacular Muscles: Present: EOMI Conjunctiva: Present: Normal Mouth: Present: Dry Nose (Internal): Present: Normal Inspection Neck: Present: Normal Range of Motion Respiratory/Chest: Present: Good Air Exchange, Rhonchi (audible). No: Respiratory Distress, Accessory Muscle Use Cardiovascular: Present: Regular Rate and Rhythm, Normal S1, S2. No: Murmurs Abdomen: Present: Normal Bowel Sounds. No: Tenderness, Distention, Peritoneal Signs Genitourinary Male: Present: Other (indwelling cath) Back: Present: Normal Inspection Upper Extremity: Present: Normal Inspection, NORMAL PULSES, Capillary Refill < 2s. No: Cyanosis, Edema, Tenderness Lower Extremity: Present: Normal Inspection, NORMAL PULSES, Capillary Refill < 2 s. No: Edema, CALF TENDERNESS, Diandra's Sign, Tenderness, Swelling Neurological: Present: GCS=15, CN II-XII Intact Skin: Present: Warm, Normal Color, Diaphoretic, Other (sacral decubitus stage IV with wound vac). No: Rashes Psychiatric: Present: Alert, Normal Insight, Normal Affect Medical Decision Making ED Course and Treatment: 12/11/17 10:45 Impression: A 87 year old male brought in for fever and c. diff. Will work up for sepsis. Differential Diagnosis included but are not limited to: C. diff vs. Stage 4 decubitus ulcer vs. PNA Plan: -- Chest xray -- EKG -- Labs -- Blood and Urine culture -- Urinalysis -- IV fluids -- Reassess and disposition Progress Notes: EKG: Sinus Tachycardia with occasional PVCs and fusion complex Imcomplete RBBB, ST and T-wave abnormality 12/11/17 11:38 CXR IMPRESSION: Poor inspiration with low lung volumes. Mild bibasilar atelectasis and or infiltrates with bilateral effusions right greater than left. .WBC: 23. 12/11/17 12:[address] Aguilar who advised Flagyl, Vanco and Zosyn; ID consult with Dr Zayas Admit to Med/surg for C.diff and Leukocytosis, nosocomial PNA - Lab Interpretations Lab Results: 12/11/17 10:00 12/11/17 10:00 Lab Results 12/11/17 10:00: Sodium 144, Chloride 103, Potassium 4.0, Carbon Dioxide 31, Anion Gap 14, BUN 62 H, Creatinine 1.3, Est GFR ( Amer) > 60, Est GFR ( Non-Af Amer) 52, Random Glucose 139 H, Calcium 8.0 L, Phosphorus 2.7, Magnesium 2.5 H, Total Bilirubin 1.0, AST 67 H D, ALT 61 H, Alkaline Phosphatase 233 H D, Troponin I 0.03 D, Total Protein 6.2, Albumin 2.8 L, Globulin 3.5, Albumin/ Globulin Ratio 0.8 L 12/11/17 10:00: pO2 30, VBG pH 7.42, VBG pCO2 48.0, VBG HCO3 31.1 H, VBG Total CO2 32.6 H, VBG O2 Sat (Calc) 67.2 H, VBG Base Excess 5.5 H, VBG Potassium 4.0, Sodium 141.0, Chloride 108.0 H, Glucose 145 H, Lactate 1.9, FiO2 21.0, Venous Blood Potassium 4.0 12/11/17 10:00: Urine Color Yellow, Urine Appearance Turbid, Urine pH 6.0, Ur Specific [place] 1.025, Urine Protein 100 H, Urine Glucose (UA) Negative, Urine Ketones Trace H, Urine Blood Negative, Urine Nitrate Negative, Urine Bilirubin Negative, Urine Urobilinogen 0.2, Ur Leukocyte Esterase Small H, Urine RBC 1 - 3 , Urine WBC 5 - 10, Urine Bacteria Many, Coarse Granular Casts Large H, Urine Other Uyeast 12/11/17 10:00: PT 16.4 H, INR 1.42 H, APTT 30.3 12/11/17 10:00: WBC 23.4 H D, RBC 4.04, Hgb 9.7 L, Hct 30.7 L, MCV 76.0 L, MCH 24.0 L, MCHC 31.6, RDW 23.1 H, Plt Count 372, MPV 9.4, Gran % 82.5 H, Lymph % ( Auto) 8.3 L, Zapata % (Auto) 9.0 H, Eos % (Auto) 0.0 L, Baso % (Auto) 0.2, Gran # 19.28 H, Lymph # (Auto) 1.9, Zapata # (Auto) 2.1 H, Eos # (Auto) 0.0, Baso # (Auto ) 0.04 I have reviewed the lab results: Yes - RAD Interpretation Narrative RAD Interpretations (Text): 12/11/17 11:37 HISTORY: wheezing COMPARISON: Comparison made with chest radiograph 11/16/2017. TECHNIQUE: Chest PA and lateral FINDINGS: LUNGS: Poor inspiration with low lung volumes. Mild bibasilar atelectasis and or infiltrates with bilateral effusions right greater than left. . PLEURA: No significant pleural effusion identified. No pneumothorax apparent. CARDIOVASCULAR: Heart appears enlarged. OSSEOUS STRUCTURES: No significant abnormalities. VISUALIZED UPPER ABDOMEN: Normal. OTHER FINDINGS: None. IMPRESSION: Poor inspiration with low lung volumes. Mild bibasilar atelectasis and or infiltrates with bilateral effusions right greater than left. . Radiology Orders: 12/11/17 09:24 CXR [CHEST TWO VIEWS (PA/LAT)] [RAD] Stat - Medication Orders Current Medication Orders: Albuterol/Ipratropium (Duoneb 3 Mg/0.5 Mg (3 Ml) Ud) 3 ml IH [id number] [facility] Last Admin: 12/12/17 07:23 Dose: 3 ml Enoxaparin Sodium (Lovenox) 30 mg SC DAILY RYLIE PRN Reason: Protocol Dextrose/Sodium Chloride (Dextrose 5%/0.45% Ns 1000 Ml) 1,000 mls @ 75 mls/hr IV .[id number] [facility] Last Admin: 12/11/17 16:36 Dose: 75 mls/hr eMAR Start Stop Document 12/11/17 16:36 LMN (Rec: 12/11/17 16:36 LMN [id number][place] Intravenous Solution Start Date 12/11/17 Start Time 18:00 Metronidazole (Flagyl) 500 mg in 100 mls @ 100 mls/hr IVPB Q8 RYLIE PRN Reason: Protocol Stop: 12/20/17 19:03 Last Admin: 12/12/17 05:56 Dose: 100 mls/hr eMAR Start Stop Document 12/12/17 05:56 MB (Rec: 12/12/17 05:56 MB [id number][place] Intravenous Solution Start Date 12/12/17 Start Time 05:56 Losartan Potassium (Cozaar) 50 mg GT DAILY [facility] Metoprolol Tartrate (Lopressor) 50 mg GT BID [facility] Metronidazole (Flagyl) 500 mg GT Q8 RYLIE PRN Reason: Protocol Pantoprazole Sodium (Protonix Inj) 20 mg IVP DAILY RYLIE Vancomycin HCl (Vancocin 25 Mg/Ml (Oral Use)) 250 mg PO QID RYLIE PRN Reason: Protocol Stop: 12/20/17 19:04 Last Admin: 12/11/17 21:32 Dose: 250 mg Discontinued Medications Sodium Chloride (Sodium Chloride 0.9%) 500 mls @ 999 mls/hr IV .Q31M STA Stop: 12/11/17 09:58 Last Admin: 12/11/17 09:56 Dose: 999 mls/hr eMAR Start Stop Document 12/11/17 09:56 CAROL (Rec: 12/11/17 09:56 CAROL [id number]) Intravenous Solution Start Date 12/11/17 Start Time 09:56 End Date 12/11/17 End time 10:26 Total Infusion Time 30 Vancomycin HCl (Vancomycin 1gm) 1 gm in 250 mls @ 167 mls/hr IVPB DAILY RYLIE PRN Reason: Protocol Last Admin: 12/11/17 16:25 Dose: 167 mls/hr eMAR Start Stop Document 12/11/17 16:25 LMN (Rec: 12/11/17 16:26 LMN [id number][place] Intravenous Solution Start Date 12/11/17 Start Time 16:26 Piperacillin Sod/Tazobactam Sod (Zosyn 3.375 In Ns 100ml) 100 mls @ 200 mls/hr IVPB STAT STA PRN Reason: Protocol Stop: 12/11/17 13:28 Last Admin: 12/11/17 13:18 Dose: 200 mls/hr eMAR Start Stop Document 12/11/17 13:18 CAROL (Rec: 12/11/17 13:18 CAROL [id number]) Intravenous Solution Start Date 12/11/17 Start Time 13:18 Metronidazole (Flagyl) 500 mg PO STAT STA PRN Reason: Protocol Stop: 12/11/17 12:59 Last Admin: 12/11/17 13:18 Dose: 500 mg Comments: VIA GT Pneumococcal Polyvalent Vaccine (Pneumovax 23 Vaccine) 0.5 ml IM .ONCE ONE Stop: 12/11/17 16:19 - Scribe Statement The provider has reviewed the documentation as recorded by the Gregory Day Provider Scribe Attestation: All medical record entries made by the Scribchase were at my direction and personally dictated by me. I have reviewed the chart and agree that the record accurately reflects my personal performance of the history, physical exam, medical decision making, and the department course for this patient. I have also personally directed, reviewed, and agree with the discharge instructions and disposition. Disposition/Present on Arrival - Present on Arrival Any Indicators Present on Arrival: Yes History of DVT/PE: No History of Uncontrolled Diabetes: No Urinary Catheter: No History of Decub. Ulcer: Yes History Surgical Site Infection Following: None - Disposition Have Diagnosis and Disposition been Completed?: Yes Diagnosis: Sacral ulcer, UTI (urinary tract infection), Clostridium difficile carrier, C. difficile colitis, Leukocytosis, Nosocomial pneumonia Disposition: HOSPITALIZED Disposition Time: 12:30 Patient Plan: Admission Patient Problems: Current Active Problems Problem Status Onset C. difficile colitis Acute Clostridium difficile carrier Acute Leukocytosis (leucocytosis) Acute Nosocomial pneumonia Acute Sacral ulcer Acute UTI (urinary tract infection) Acute Condition: FAIR
--- NOTE | 2017-12-11 11:20 | RAD ---
HISTORY: wheezing COMPARISON: Comparison made with chest radiograph 11/16/2017. TECHNIQUE: Chest PA and lateral FINDINGS: LUNGS: Poor inspiration with low lung volumes. Mild bibasilar atelectasis and or infiltrates with bilateral effusions right greater than left. . PLEURA: No significant pleural effusion identified. No pneumothorax apparent. CARDIOVASCULAR: Heart appears enlarged. OSSEOUS STRUCTURES: No significant abnormalities. VISUALIZED UPPER ABDOMEN: Normal. OTHER FINDINGS: None. IMPRESSION: Poor inspiration with low lung volumes. Mild bibasilar atelectasis and or infiltrates with bilateral effusions right greater than left. .
[2017-12-11] MEDS ORDERED: Piperacillin/Tazobact 3.375 gm 100 ML IVPB STA (12:59)
[2017-12-11] MEDS ORDERED: Vancomycin 1gm in NS 250ml 1 GM/250 ML BAG IVPB SCH (13:00)
--- NOTE | 2017-12-11 14:09 | CARD ---
APPROVED REPORT EKG Measurement Heart [id number] NE 160P [id number] <Conclusion> Sinus tachycardia with APCs RBBB NSSTW changes Artifact present
--- NOTE | 2017-12-11 15:29 | CP.PCM.CON ---
History of Present Illness - History of Present Illness History of Present Illness: Palliative consult requested by Dr Anaya Aguilar Reason: Goals of care 87 year old Iranian male with history of who was sent from [facility] presented with fever, altered mental status and temp 100.6 one day duration. Recent C Diff at [place]. Chest x ray showed bilateral pleural effusions R>L>,mild bibasilar atelectasis/ infiltrates, poor inspiration with low lung volumes Labs: Wbc 23.4, Hgb 9.7, Plt. 372,NA 144, K 4.0, Bun 62, creat 1.3, AST 67, Alt 71, LDH 233, Troponin 0.03, albumin 2.8. EKG:Sinus tachycardia APC's, RBBB, NSST changes Vital Signs:T 99.6, P 108, BP 110/60,R 20, O2 sat 92% on nasal cannula. PMH: COPD, TIA,CHF, C Diff, sacral decubiti,sepsis, dyspahgia s/p PEG,CKD, anemia. Social Hist:Non smoker, occasional wine, no drug use. Resident of [facility]. Family History: Non contributory Advance Care Planning: The patient does not have an Advanced Directive, he is a full code. Review of Systems: As per HPI, patient non verbal unable to obtain complete system review. Past Patient History - Infectious Disease Hx of Infectious Diseases: None - Tetanus Immunizations Tetanus Immunization: Unknown - Past Medical History & Family History Past Medical History?: Yes - Past Social History Smoking Status: Unknown If Ever Smoked - CARDIAC Hx Cardiac Disorders: Yes Hx Congestive Heart Failure: Yes Hx Hypercholesterolemia: Yes Hx Hypertension: Yes Hx Pacemaker: No Other/Comment: rapid response 12/07/16 for chest pain/tachycardis/htn - PULMONARY Hx Respiratory Disorders: Yes Hx Chronic Obstructive Pulmonary Disease (COPD): Yes Hx Pneumonia: Yes (aspiration) - NEUROLOGICAL Hx Neurological Disorder: Yes (responds to pain) HX Cerebrovascular Accident: Yes (TIA) Hx Dementia: Yes - HEENT Hx HEENT Problems: Yes (WEARS RX GLASSES) Hx Cataracts: Yes - RENAL Hx Chronic Kidney Disease: Yes Hx Renal Failure: Yes - ENDOCRINE/METABOLIC Hx Endocrine Disorders: No - HEMATOLOGICAL/ONCOLOGICAL Hx Blood Disorders: Yes (leukocytosis, blood transfusion) Hx Cancer: No - INTEGUMENTARY Hx Dermatological Problems: Yes (MULTIPLE ROUND OLD AGE SPOTS TO FACE,ARMS) Other/Comment: gluteal abcess,sacral stage IV pressure injury 11cm x 11cm x 3cm deep with tunneling and undermining, slough, bone exposure, muscle dectruction, necrosis,serosanguineous drainage no odor, wound vac to wound. left heel 4cm x 4cm x 0.1cm deep serosanguineous drainage, eschar, no odor stage IV treated with santyl dsd intact. left outer ankle 3cm x 3cm discolored blister no drainage dsd intact. multiple molees to face neck forehead, multiple ski discoloratins to arms and legs, dry thisk toenails and dry flakey skin both feet , peg dressing intact - MUSCULOSKELETAL/RHEUMATOLOGICAL Hx Musculoskeletal Disorders: Yes Hx Arthritis: Yes Hx Back Pain: Yes Hx Degenerative Joint Disease: Yes Hx Unsteady Gait: Yes (bedridden) Other/Comment: left shoulder bursitis - GASTROINTESTINAL Hx Gastrointestinal Disorders: Yes (c dif?) HX Swallowing Problems: Yes (peg tube let abd enteral feedings jevity) - GENITOURINARY/GYNECOLOGICAL Hx Genitourinary Disorders: Yes Hx Incontinence: Yes (pt has 2 way otero catheter) Hx Prostate Problems: Yes Hx Urinary Tract Infection: Yes - PSYCHIATRIC Hx Psychophysiologic Disorder: No - SURGICAL HISTORY Hx Surgeries: Yes Other/Comment: mitch picc, 11/22/17 necrotizing fascitis debridement of sacral wound with irrigation and application of wound vac. left heel debrided by dr key 12/01/17 - ANESTHESIA Hx Anesthesia Reactions: No (Pt unable to answer) Hx Malignant Hyperthermia: No (Pt unable to answer) Meds Allergies/Adverse Reactions: Allergies Allergy/AdvReac Type Severity Reaction Status Date / Time No Known Allergies Allergy Verified 12/11/17 09:04 - Medications Medications: Current Medications Vancomycin HCl (Vancomycin 1gm) 1 gm in 250 mls @ 167 mls/hr IVPB DAILY RYLIE PRN Reason: Protocol Physical Exam - Constitutional Appears: Chronically Ill - Head Exam Head Exam: NORMOCEPHALIC - Eye Exam Eye Exam: Normal appearance, PERRL - ENT Exam ENT Exam: Mucous Membranes Moist - Neck Exam Neck exam: Positive for: Normal Inspection - Respiratory Exam Respiratory Exam: Decreased Breath Sounds, Rhonchi - Cardiovascular Exam Cardiovascular Exam: Tachycardia, +S1, +S2 - GI/Abdominal Exam GI & Abdominal Exam: Hypoactive Bowel Sounds, Soft Additional comments: LLQ PEG - Extremities Exam Extremities exam: Positive for: pedal edema, pedal pulses present - Back Exam Additional comments: stage IV sacral decubiti - Skin Skin Exam: Dry, Pallor - Additional Findings Additional findings: palliative performance scale rating 30 % Results - Vital Signs Recent Vital Signs: Last Vital Signs Temp 100.6 F H 12/11/17 09:04 Pulse 107 H 12/11/17 13:30 Resp 18 12/11/17 13:30 BP 107/63 12/11/17 13:30 Pulse Ox 92 L 12/11/17 13:30 - Labs Result Diagrams: 12/11/17 10:00 12/11/17 10:00 Assessment & Plan - Assessment and Plan (Free Text) Assessment: 87 year old male with history of CHF,sepsis, sacral ulcer, dysphagia who is admitted with C Diff, pleural effusions, R>L, r/o pneumonia. Family at bedside, daughter Kristi GUERRERO, son in law(states he is a MD in the [place]). [place] SANCHEZ assisted with conversation by interpreting in Greek. Family aware that patient is admitted with sepsis. The patient does not have an Advanced Directive. Benefits and burdens of resuscitation with CPR/ intubation explained. Questions answered. Family wants patient to remain full code status. Time spent with family in goals of care and advance care planning, 30 minutes Plan: Goals of Care/advance care planning; Full code status Sepsis: ID consulted, cultures, given Piperacillin and Flagyl in ED, now on Vancomycin and Flagyl. Pulmonary: Chest x rays, monitor O2 sat, nebulizers Sacral Decubiti: Wound care,surgical consult Renal consulted for for follow up on CKD
[2017-12-11] MEDS ORDERED: Dextrose 5%/0.45% NS 1,000 ML IV SCH (16:00)
[2017-12-11 16:16] VITALS: BMI 14.6
[2017-12-11] MEDS ORDERED: Pneumococcal 23-Valent Vaccine IM ONE (16:18)
--- NOTE | 2017-12-11 17:01 | CP.PCM.CON ---
<Ilya Webber - Last Filed: 12/11/17 19:52> History of Present Illness - History of Present Illness History of Present Illness: GI Consult Note for Dr. Valerio service KATHRIN Mccallum PGY-3 This is an 87 yo M with PMH of CHF, CVA, COPD, dementia, HTN, CKD, hx of PEG tube, and hx of hydropneumothorax who was brought in by ambulance from [facility] ([facility]) due to fever since yesterday. HPI/ROS/PE limited as patient is demented, minimally responsive to questions/commands, and no family present at time of interview/exam. As per ED charting and nursing on floor, patient was previously treated at longterm for C-diff infection (on Vanco and Merrem as per [facility] paperwork). Starting yesterday, developed a fever (Tmax unknown), which persisted today, despite tylenol use. Only reported temperature provided was 100.6F prior to transport to [facility]. Patient is demented at baseline, currently minimally responsive, and answers no to everything. When asked how he is, states he is fine. Shakes head no to most questions. Additionally, report from [facility] that patient was complaining of tenderness at and around PEG tube. Pt shakes his head no when questioned about this, and does not display any reaction to palpation around this area during exam. PMH: as above PSH: gastrostomy tube placement, right chest thoracoscopy, 2x stage 4 sacral decub ulcer debridement Fam Hx: none documented by prior charting Soc Hx: as per prior charting, prior smoker (extent unknown), prior social EtOH (wine with dinner), denies ever illicits PMD: Dr. Aguilar Review of Systems - Review of Systems Systems not reviewed;Unavailable: Dementia Past Patient History - Infectious Disease Hx of Infectious Diseases: None - Tetanus Immunizations Tetanus Immunization: Unknown - Past Medical History & Family History Past Medical History?: Yes - Past Social History Smoking Status: Unknown If Ever Smoked - CARDIAC Hx Cardiac Disorders: Yes Hx Congestive Heart Failure: Yes Hx Hypercholesterolemia: Yes Hx Hypertension: Yes Hx Pacemaker: No Other/Comment: rapid response 12/07/16 for chest pain/tachycardis/htn - PULMONARY Hx Respiratory Disorders: Yes Hx Chronic Obstructive Pulmonary Disease (COPD): Yes Hx Pneumonia: Yes (aspiration) - NEUROLOGICAL Hx Neurological Disorder: Yes (responds to pain) HX Cerebrovascular Accident: Yes (TIA) Hx Dementia: Yes - HEENT Hx HEENT Problems: Yes (WEARS RX GLASSES) Hx Cataracts: Yes - RENAL Hx Chronic Kidney Disease: Yes Hx Renal Failure: Yes - ENDOCRINE/METABOLIC Hx Endocrine Disorders: No - HEMATOLOGICAL/ONCOLOGICAL Hx Blood Disorders: Yes (leukocytosis, blood transfusion) Hx Cancer: No - INTEGUMENTARY Hx Dermatological Problems: Yes (MULTIPLE ROUND OLD AGE SPOTS TO FACE,ARMS) Other/Comment: gluteal abcess,sacral stage IV pressure injury 11cm x 11cm x 3cm deep with tunneling and undermining, slough, bone exposure, muscle dectruction, necrosis,serosanguineous drainage no odor, wound vac to wound. left heel 4cm x 4cm x 0.1cm deep serosanguineous drainage, eschar, no odor stage IV treated with santyl dsd intact. left outer ankle 3cm x 3cm discolored blister no drainage dsd intact. multiple molees to face neck forehead, multiple ski discoloratins to arms and legs, dry thisk toenails and dry flakey skin both feet , peg dressing intact - MUSCULOSKELETAL/RHEUMATOLOGICAL Hx Musculoskeletal Disorders: Yes Hx Arthritis: Yes Hx Back Pain: Yes Hx Degenerative Joint Disease: Yes Hx Unsteady Gait: Yes (bedridden) Other/Comment: left shoulder bursitis - GASTROINTESTINAL Hx Gastrointestinal Disorders: Yes (c dif?) HX Swallowing Problems: Yes (peg tube let abd enteral feedings jevity) - GENITOURINARY/GYNECOLOGICAL Hx Genitourinary Disorders: Yes Hx Incontinence: Yes (pt has 2 way otero catheter) Hx Prostate Problems: Yes Hx Urinary Tract Infection: Yes - PSYCHIATRIC Hx Psychophysiologic Disorder: No - SURGICAL HISTORY Hx Surgeries: Yes Other/Comment: mitch picc, 11/22/17 necrotizing fascitis debridement of sacral wound with irrigation and application of wound vac. left heel debrided by dr key 12/01/17 - ANESTHESIA Hx Anesthesia Reactions: No (Pt unable to answer) Hx Malignant Hyperthermia: No (Pt unable to answer) Meds Allergies/Adverse Reactions: Allergies Allergy/AdvReac Type Severity Reaction Status Date / Time No Known Allergies Allergy Verified 12/11/17 09:04 - Medications Medications: Current Medications Albuterol/Ipratropium (Duoneb 3 Mg/0.5 Mg (3 Ml) Ud) 3 ml IH [id number] [facility] Enoxaparin Sodium (Lovenox) 30 mg SC DAILY [facility] PRN Reason: Protocol Vancomycin HCl (Vancomycin 1gm) 1 gm in 250 mls @ 167 mls/hr IVPB DAILY [facility] PRN Reason: Protocol Last Admin: 12/11/17 16:25 Dose: 167 mls/hr Dextrose/Sodium Chloride (Dextrose 5%/0.45% Ns 1000 Ml) 1,000 mls @ 75 mls/hr IV .[id number] [facility] Last Admin: 12/11/17 16:36 Dose: 75 mls/hr Losartan Potassium (Cozaar) 50 mg GT DAILY [facility] Metoprolol Tartrate (Lopressor) 50 mg GT BID [facility] Metronidazole (Flagyl) 500 mg GT Q8 [facility] PRN Reason: Protocol Pantoprazole Sodium (Protonix Inj) 20 mg IVP DAILY [facility] Physical Exam - Constitutional Appears: Non-toxic, No Acute Distress, Chronically Ill - Head Exam Head Exam: ATRAUMATIC, NORMAL INSPECTION, NORMOCEPHALIC - Eye Exam Eye Exam: EOMI, Normal appearance. absent: Conjunctival injection, Scleral icterus Pupil Exam: absent: Fixed, Irregular - ENT Exam ENT Exam: Mucous Membranes Dry Additional comments: dried secretions throughout mouth, possible food remnants as well - Neck Exam Neck exam: Positive for: Normal Inspection. Negative for: Lymphadenopathy, Thyromegaly - Respiratory Exam Respiratory Exam: Decreased Breath Sounds (mildly decreased breath sounds all quadrants, otherwise CTAB), Clear to Auscultation Bilateral, NORMAL BREATHING PATTERN. absent: Accessory Muscle Use, Prolonged Expiratory Phase, Rales, Rhonchi, Wheezes, Respiratory Distress, Stridor - Cardiovascular Exam Cardiovascular Exam: REGULAR RHYTHM, RRR, +S1, +S2. absent: Bradycardia, Tachycardia, Irregular Rhythm, JVD - GI/Abdominal Exam GI & Abdominal Exam: Normal Bowel Sounds. absent: Diminished Bowel Sounds, Distended, Firm, Guarding, Hyperactive Bowel Sounds, Hypoactive Bowel Sounds Additional comments: PEG tube in place with surrounding bandaging, no appreciable surrounding erythema or induration, not warm to touch, no acute reaction to deep palpation, no bloody or purulent discharge from the tube appreciated - Extremities Exam Extremities exam: Positive for: normal inspection, pedal pulses present. Negative for: calf tenderness, joint swelling, pedal edema, tenderness - Neurological Exam Additional comments: awake, minimally alert but can focus sufficiently with repeat prompting to follow simple commands, minimal spontaneous movements appreciated during exam - Psychiatric Exam Additional comments: demented, minimally responsive, answers most questions by saying no or shaking head no - Skin Skin Exam: Dry, Intact, Normal Color, Warm Results - Vital Signs Recent Vital Signs: Last Vital Signs Temp 100.6 F H 12/11/17 15:41 Pulse 107 H 12/11/17 15:41 Resp 20 12/11/17 15:41 BP 107/53 L 12/11/17 15:41 Pulse Ox 92 L 12/11/17 13:30 - Labs Result Diagrams: 12/11/17 10:00 12/11/17 10:00 Assessment & Plan - Assessment and Plan (Free Text) Assessment: This is an 87 yo M with PMH of CHF, CVA, COPD, dementia, HTN, CKD, hx of PEG tube, and hx of hydropneumothorax who was brought in by ambulance from [facility] ([facility]) due to fever since yesterday. He was being treated for C diff infectious at the [place], and GI is being consulted for the C Diff + Peg tube/abd tenderness. Plan: Dementia, possible hypoactive delirium overlying vs AMS 2/2 infectious process Hx CVA, COPD, HTN Hx PEG tube, reported abd tenderness at PEG-site Sepsis 2/2 UTI vs C diff, not severe sepsis as hemodynamically stable and lactate only 1.9 (on VBG) -Started on Flagyl, Vanco, and Zosyn by PMD, ID consulted for med recs -Recommend testing for stool c diff -Seen by Paliative service, full code as per family (per Palliative's note, family not present during exam) -Recommend NPO until AMS improved and can be cleared by Speech, high risk for aspiration in current state -No report from [facility] of unable to flush PEG, appears to still be patent, no appreciable tenderness or abnormality on exam, freely mobile peg on exam -Agree with plan for CT abd/pelvis, pending completion and official report, will assess PEG placement on CT Pt seen, reviewed, and discussed with attending, Dr Valerio <Seth Valerio V - Last Filed: 12/11/17 23:45> Meds - Medications Medications: Current Medications Albuterol/Ipratropium (Duoneb 3 Mg/0.5 Mg (3 Ml) Ud) 3 ml IH [id number] [facility] Last Admin: 12/11/17 20:21 Dose: Not Given Enoxaparin Sodium (Lovenox) 30 mg SC DAILY [facility] PRN Reason: Protocol Dextrose/Sodium Chloride (Dextrose 5%/0.45% Ns 1000 Ml) 1,000 mls @ 75 mls/hr IV .[id number] [facility] Last Admin: 12/11/17 16:36 Dose: 75 mls/hr Metronidazole (Flagyl) 500 mg in 100 mls @ 100 mls/hr IVPB Q8 [facility] PRN Reason: Protocol Stop: 12/20/17 19:03 Last Admin: 12/11/17 21:29 Dose: 100 mls/hr Losartan Potassium (Cozaar) 50 mg GT DAILY [facility] Metoprolol Tartrate (Lopressor) 50 mg GT BID [facility] Metronidazole (Flagyl) 500 mg GT Q8 [facility] PRN Reason: Protocol Pantoprazole Sodium (Protonix Inj) 20 mg IVP DAILY [facility] Vancomycin HCl (Vancocin 25 Mg/Ml (Oral Use)) 250 mg PO QID [facility] PRN Reason: Protocol Stop: 12/20/17 19:04 Last Admin: 12/11/17 21:32 Dose: 250 mg Results - Vital Signs Recent Vital Signs: Last Vital Signs Temp 97.7 F 12/11/17 22:14 Pulse 66 12/11/17 22:14 Resp 18 12/11/17 22:14 BP 133/62 12/11/17 22:14 Pulse Ox 94 L 12/11/17 22:14 - Labs Result Diagrams: 12/11/17 10:00 12/11/17 10:00 Labs: Laboratory Results - last 24 hr 12/11/17 19:44 Stool Occult Blood Negative Attending/Attestation - Attestation I have personally seen and examined this patient.: Yes I have fully participated in the care of the patient.: Yes I have reviewed all pertinent clinical information: Yes Notes (Text): This is an addendum to GI consult report dictated by the Medical .The patient was seen and examined earlier. Medical records, lab studies, imagings were reviewed. Last 24 hours events reviewed. Agreed with the above treatment plan as outlined in [employer] 's notes the with the addition of the following on examination patient not in acute distress History of colitis in the past abdomen soft no tenderness GTin situ significant thickening of the right colon with inflammatory changes noticed in the prior admission continue antibiotics Follow-up CT scan of the abdomen and pelvis Stool for C. difficile 12/11/17 23:44
[2017-12-11] MEDS ORDERED: Iohexol 240 (50 ml) ONE (17:18)
[2017-12-11] MEDS: Albuterol-Ipratrop 3 mg / 0.5 (3 ml) UD IH SCH (20:21)
[2017-12-11] MEDS: metroNIDAZOLE IV 500 mg/100 ml 500 MG/100 ML BAG IVPB SCH (21:29)
[2017-12-11] MEDS: Vancomycin 25 MG/ML PO SCH (21:32)
[2017-12-12] MEDS: Albuterol-Ipratrop 3 mg / 0.5 (3 ml) UD IH SCH ×4 (01:17→20:50)
[2017-12-12] MEDS: metroNIDAZOLE IV 500 mg/100 ml 500 MG/100 ML BAG IVPB SCH ×3 (05:56→21:02)
--- NOTE | 2017-12-12 06:03 | CON ---
DATE: 12/11/2017 LOCATION: Patient is seen in room 560, bed 2. CHIEF COMPLAINT: Fever x1 day. HISTORY OF PRESENT ILLNESS: This is an 87-year-old correction patient from [facility] with history of COPD, congestive heart failure, dementia, cataract, hypertension, TIA, osteoarthritis, ascending colitis, left gluteal necrotizing fascitis, acute kidney injury, with PEG tube placement, who was found to have C. diff with pseudomembranous colitis at the [facility], and has a fever and diarrhea. Patient is a poor historian and information is gathered from the chart. REVIEW OF SYSTEMS: Reveals the 12-point review of systems performed. There is fevers and diarrhea. No abdominal pain. No dysuria. No cough or shortness of breath. PAST MEDICAL HISTORY: Significant for chronic obstructive lung disease, dementia, congestive heart failure, cataract, TIA, osteoarthritis, ascending cholangitis, left gluteal necrotizing fascitis, acute kidney injury. PAST SURGICAL HISTORY: Significant for PEG tube placement. ALLERGIES: PATIENT HAS NO KNOWN ALLERGIES. MEDICATIONS: At the correction are reviewed. PHYSICAL EXAMINATION: VITAL SIGNS: Temperature is 100.6, heart rate of 105, respiratory rate of 20, blood pressure is 107/ , oxygenation is 91% on O2. HEENT: Unremarkable. NECK: Supple. LUNGS: Have decreased breath sounds. HEART: Normal S1, S2. ABDOMEN: Soft, nontender. LABORATORY EXAMINATION: As stated, with white count of 23,400, hemoglobin of 9, platelets of 372. BUN of 62, creatinine of 1.3. The last creatinine in November was 0.6. Urinalysis is noted. Alk phos is elevated at 233. Bilirubin is normal, total bilirubin 1. Urinalysis has 5-10 wbc's. Chest x-ray is more consistent with atelectasis. ASSESSMENT AND PLAN: This is an 87-year-old correction patient with chronic obstructive pulmonary disease, congestive heart failure, dementia, cataract, hypertension, transient ischemic attack, left gluteal necrotizing fascitis, acute kidney injury, now presenting with fever, leukocytosis, diarrhea, tachycardia, hypoxia. Severe sepsis secondary to pseudomembranous colitis and stage IV decubitus ulcer. We will treat the patient with intravenous Flagyl and p.o. vancomycin. Blood culture, urine culture, sputum culture, and stool . Overall prognosis is poor. So we will consider hospice stay for this patient. Virgil Zayas MD
--- NOTE | 2017-12-12 07:00 | CP.PCM.PN ---
Subjective - Date & Time of Evaluation Date of Evaluation: 12/12/17 Time of Evaluation: 09:10 - Subjective Subjective: GI Progress Note for Dr. Teodoro Webber, PGY-3 Patient seen and examined at bedside. No acute events reported overnight. Minimal ROS due to dementia/minimally verbal state. Answers "yes" to all yes/ no ROS questions in [place] except when queried about vomiting. Unable to state where he is, unable to state date of . Despite saying "yes" to shortness of breath and abdominal pain, is not visibly short of breath, and only reacts on exam to palpation of RUQ. Objective - Vital Signs/Intake and Output Vital Signs (last 24 hours): Temp Pulse Resp BP Pulse Ox 97.7 F 66 18 133/62 94 L 12/11/17 22:14 12/11/17 22:14 12/11/17 22:14 12/11/17 22:14 12/11/17 22:14 Intake and Output: 12/12/17 12/12/17 06:59 18:59 Intake Total 425 Balance 425 - Medications Medications: Current Medications Albuterol/Ipratropium (Duoneb 3 Mg/0.5 Mg (3 Ml) Ud) 3 ml IH [id number] [facility] Last Admin: 12/12/17 01:17 Dose: 3 ml Enoxaparin Sodium (Lovenox) 30 mg SC DAILY [facility] PRN Reason: Protocol Dextrose/Sodium Chloride (Dextrose 5%/0.45% Ns 1000 Ml) 1,000 mls @ 75 mls/hr IV .[id number] [facility] Last Admin: 12/11/17 16:36 Dose: 75 mls/hr Metronidazole (Flagyl) 500 mg in 100 mls @ 100 mls/hr IVPB Q8 [facility] PRN Reason: Protocol Stop: 12/20/17 19:03 Last Admin: 12/12/17 05:56 Dose: 100 mls/hr Losartan Potassium (Cozaar) 50 mg GT DAILY [facility] Metoprolol Tartrate (Lopressor) 50 mg GT BID [facility] Metronidazole (Flagyl) 500 mg GT Q8 [facility] PRN Reason: Protocol Pantoprazole Sodium (Protonix Inj) 20 mg IVP DAILY [facility] Vancomycin HCl (Vancocin 25 Mg/Ml (Oral Use)) 250 mg PO QID [facility] PRN Reason: Protocol Stop: 12/20/17 19:04 Last Admin: 12/11/17 21:32 Dose: 250 mg - Labs Labs: PT 16.4 SECONDS (9.4-12.5) H 12/11/17 10:00 INR 1.42 (0.93-1.08) H 12/11/17 10:00 APTT 30.3 Seconds (25.1-36.5) 12/11/17 10:00 - Additional Findings Additional findings: - Constitutional Appears: Non-toxic, No Acute Distress, Chronically Ill - Head Exam Head Exam: ATRAUMATIC, NORMAL INSPECTION, NORMOCEPHALIC - Eye Exam Eye Exam: EOMI, Normal appearance. absent: Conjunctival injection, Scleral icterus Pupil Exam: absent: Fixed, Irregular - ENT Exam ENT Exam: Mucous Membranes Dry Additional comments: dried secretions throughout mouth, possible food remnants as well - Neck Exam Neck exam: Positive for: Normal Inspection. Negative for: Lymphadenopathy, Thyromegaly - Respiratory Exam Respiratory Exam: Mildly Decreased Breath Sounds otherwise CTAB, NORMAL BREATHING PATTERN. absent: Accessory Muscle Use, Prolonged Expiratory Phase, Rales, Rhonchi, Wheezes, Respiratory Distress, Stridor - Cardiovascular Exam Cardiovascular Exam: REGULAR RHYTHM, RRR, +S1, +S2. absent: Bradycardia, Tachycardia, Irregular Rhythm, JVD - GI/Abdominal Exam GI & Abdominal Exam: Normal Bowel Sounds. absent: Diminished Bowel Sounds, Distended, Firm, Guarding, Hyperactive Bowel Sounds, Hypoactive Bowel Sounds Additional comments: PEG tube in place, no appreciable surrounding erythema or induration, not warm to touch, no acute reaction to deep palpation, no bloody or purulent discharge from the tube or surounding area appreciated - Extremities Exam Extremities exam: Positive for: normal inspection, pedal pulses present. Negative for: calf tenderness, joint swelling, pedal edema, tenderness - Neurological Exam awake, minimally alert but can focus sufficiently with repeat prompting to follow simple commands, minimal spontaneous movements appreciated during exam - Psychiatric Exam demented, minimally responsive, answers most questions by saying yes - Skin Skin Exam: Dry, Intact, Normal Color, Warm Assessment and Plan - Assessment and Plan (Free Text) Assessment: This is an 87 yo M with PMH of CHF, CVA, COPD, dementia, HTN, CKD, hx of PEG tube, and hx of hydropneumothorax who was brought in by ambulance from [facility]) due to fever since yesterday. He was being treated for C diff infectious at the [place], and GI is being consulted for the C Diff infection + Peg tube/abd tenderness. Plan: Dementia, possible hypoactive delirium overlying vs AMS 2/2 infectious process Hx CVA, COPD, HTN Hx PEG tube, reported abd tenderness at PEG-site Sepsis 2/2 UTI vs C diff, not severe sepsis as hemodynamically stable and lactate only 1.9 (on VBG) Cholelithiasis -Flagyl IV and Vanco PO as per ID -Stool C Diff ordered, pending -Seen by Paliative service, full code as per family (per Palliative's note, family not present during exam) -Recommend NPO until AMS improved and can be cleared by Speech, high risk for aspiration in current state -No report from [facility] of unable to flush PEG, appears to still be patent, no appreciable tenderness or abnormality on exam, freely mobile peg on exam -CT abd/pelvis notable Bibasilar consolidation at lung base, Gallstones with distension/wall thickening concerning for cholecystitis. -Surgery consulted, appreciate their recs Pt seen, reviewed, and discussed with attending, Dr Valerio
[2017-12-12 09:27] LABS: HEMOGLOBIN 8.3 g/dL (14.0-18.0); MEAN CORPUSCULAR HEMOGLOBIN 23.2 pg (25.0-35.0); MEAN CORPUSCULAR HGB CONC 31.3 g/dl (31.0-37.0); MEAN PLATELET VOLUME 9.5 fl (7.0-11.0); RBC 3.58 10^6/uL (3.5-6.1); RED CELL DISTRIBUTION WIDTH 23.1 % (11.5-14.5)
[2017-12-12 09:42] LABS: ALB/GLOB RATIO 0.7 (1.1-1.8); ALBUMIN 2.3 g/dL (3.0-4.8); ALT/SGPT 49 U/L (7-56); AST/SGOT 58 U/L (17-59); BLOOD UREA NITROGEN 53 mg/dL (7-21); CALCIUM 7.7 mg/dL (8.4-10.5); GFR AFRICAN-AMERICAN > 60; GFR NON-AFRICAN AMERICAN > 60
[2017-12-12 09:46] LABS: WHITE BLOOD COUNT 25.7 10^3/ul (4.5-11.0)
[2017-12-12] MEDS ORDERED: Potassium Chloride 40 mEq/30 ml LIQ UD GT ONE (10:23)
[2017-12-12] MEDS: Vancomycin 25 MG/ML PO SCH ×3 (10:41→21:02)
[2017-12-12] MEDS: Albumin Human 25% (25 gm/100 ml) IV SCH ×2 (13:09→20:39)
[2017-12-12] MEDS: Enoxaparin 30 mg Syringe SC SCH (13:09)
[2017-12-12] MEDS: Dextrose 5%/0.45% NS 1,000 ML IV SCH (13:10)
--- NOTE | 2017-12-12 13:44 | CP.PCM.PN ---
Subjective - Date & Time of Evaluation Date of Evaluation: 12/12/17 Time of Evaluation: 13:44 - Subjective Subjective: Mr. Harrison is a 87 y/o M with pmhx of CAD, necrotizing Objective - Vital Signs/Intake and Output Vital Signs (last 24 hours): Temp Pulse Resp BP Pulse Ox 98 F 92 H 20 135/39 L 96 12/12/17 06:00 12/12/17 06:00 12/12/17 06:00 12/12/17 06:00 12/12/17 06:00 Intake and Output: 12/12/17 12/12/17 06:59 18:59 Intake Total 425 Balance 425 - Medications Medications: Current Medications Albumin Human (Albumin Human 25% (25 Gm/100 Ml)) 25 gm IV Q6 [facility] Stop: 12/13/17 06:01 Albuterol/Ipratropium (Duoneb 3 Mg/0.5 Mg (3 Ml) Ud) 3 ml IH [id number] [facility] Last Admin: 12/12/17 13:02 Dose: 3 ml Enoxaparin Sodium (Lovenox) 30 mg SC DAILY [facility] PRN Reason: Protocol Metronidazole (Flagyl) 500 mg in 100 mls @ 100 mls/hr IVPB Q8 [facility] PRN Reason: Protocol Stop: 12/20/17 19:03 Last Admin: 12/12/17 05:56 Dose: 100 mls/hr Dextrose/Sodium Chloride (Dextrose 5%/0.45% Ns 1000 Ml) 1,000 mls @ 50 mls/hr IV .Q20H [facility] Potassium Chloride (Potassium Chloride 20 Meq/100 Ml) 20 meq in 100 mls @ 50 mls/hr IVPB ONCE ONE Stop: 12/12/17 14:13 Metoprolol Tartrate (Lopressor) 50 mg GT BID [facility] Pantoprazole Sodium (Protonix Inj) 20 mg IVP DAILY [facility] Last Admin: 12/12/17 10:38 Dose: 20 mg Vancomycin HCl (Vancocin 25 Mg/Ml (Oral Use)) 250 mg PO QID [facility] PRN Reason: Protocol Stop: 12/20/17 19:04 Last Admin: 12/12/17 10:41 Dose: 250 mg - Labs Labs: 12/12/17 09:00 12/12/17 09:00 PT 16.4 SECONDS (9.4-12.5) H 12/11/17 10:00 INR 1.42 (0.93-1.08) H 12/11/17 10:00 APTT 30.3 Seconds (25.1-36.5) 12/11/17 10:00
--- NOTE | 2017-12-12 14:04 | CP.PCM.HP ---
History of Present Illness - History of Present Illness History of Present Illness: Mr. Harrison is an 87 year old nauruan speaking M with pmhx of CHF, CVA, HTN, CKD , Dementia and Necrotizing Fasciitis presents to [facility] [place] [place] ED from [facility] due to fever. Pt is a poor historian and minimally responsive to questions/commands and demented at baseline. Patient was previously treated for C. diff at residential. and . He had previously underwent surgical debridement of stage 4 ulcer along with necrotizing fasciitis several weeks prior. Patient had developed a fever on 11/10/17 which has persisted despite tylenol use. Pmhx: See HPI Socialhx: prior smoker, prior social EtOH, denied illicit drug Allergies: NKDA Surghx: PEG tube, R chest thoracoscopy, stage 4 sacral debridement, L Gluteal Nec Fasciitis Present on Admission - Present on Admission Any Indicators Present on Admission: Yes Decubitus Ulcer Present: Yes Decubitus Ulcer Location: Sacral Decubitus Ulcer Stage: IV Past Patient History - Infectious Disease Hx of Infectious Diseases: None - Tetanus Immunizations Tetanus Immunization: Unknown - Past Medical History & Family History Past Medical History?: Yes - Past Social History Smoking Status: Unknown If Ever Smoked - CARDIAC Hx Cardiac Disorders: Yes Hx Congestive Heart Failure: Yes Hx Hypercholesterolemia: Yes Hx Hypertension: Yes Hx Pacemaker: No Other/Comment: rapid response 12/07/16 for chest pain/tachycardis/htn - PULMONARY Hx Respiratory Disorders: Yes Hx Chronic Obstructive Pulmonary Disease (COPD): Yes Hx Pneumonia: Yes (aspiration) - NEUROLOGICAL Hx Neurological Disorder: Yes (responds to pain) HX Cerebrovascular Accident: Yes (TIA) Hx Dementia: Yes - HEENT Hx HEENT Problems: Yes (WEARS RX GLASSES) Hx Cataracts: Yes - RENAL Hx Chronic Kidney Disease: Yes Hx Renal Failure: Yes - ENDOCRINE/METABOLIC Hx Endocrine Disorders: No - HEMATOLOGICAL/ONCOLOGICAL Hx Blood Disorders: Yes (leukocytosis, blood transfusion) Hx Cancer: No - INTEGUMENTARY Hx Dermatological Problems: Yes (MULTIPLE ROUND OLD AGE SPOTS TO FACE,ARMS) Other/Comment: gluteal abcess,sacral stage IV pressure injury 11cm x 11cm x 3cm deep with tunneling and undermining, slough, bone exposure, muscle dectruction, necrosis,serosanguineous drainage no odor, wound vac to wound. left heel 4cm x 4cm x 0.1cm deep serosanguineous drainage, eschar, no odor stage IV treated with santyl dsd intact. left outer ankle 3cm x 3cm discolored blister no drainage dsd intact. multiple molees to face neck forehead, multiple ski discoloratins to arms and legs, dry thisk toenails and dry flakey skin both feet , peg dressing intact - MUSCULOSKELETAL/RHEUMATOLOGICAL Hx Musculoskeletal Disorders: Yes Hx Arthritis: Yes Hx Back Pain: Yes Hx Degenerative Joint Disease: Yes Hx Unsteady Gait: Yes (bedridden) Other/Comment: left shoulder bursitis - GASTROINTESTINAL Hx Gastrointestinal Disorders: Yes (c dif?) HX Swallowing Problems: Yes (peg tube let abd enteral feedings jevity) - GENITOURINARY/GYNECOLOGICAL Hx Genitourinary Disorders: Yes Hx Incontinence: Yes (pt has 2 way otero catheter) Hx Prostate Problems: Yes Hx Urinary Tract Infection: Yes - PSYCHIATRIC Hx Psychophysiologic Disorder: No - SURGICAL HISTORY Hx Surgeries: Yes Other/Comment: mitch picc, 11/22/17 necrotizing fascitis debridement of sacral wound with irrigation and application of wound vac. left heel debrided by dr key 12/01/17 - ANESTHESIA Hx Anesthesia Reactions: No (Pt unable to answer) Hx Malignant Hyperthermia: No (Pt unable to answer) Meds Allergies/Adverse Reactions: Allergies Allergy/AdvReac Type Severity Reaction Status Date / Time No Known Allergies Allergy Verified 12/11/17 09:04 Results - Vital Signs Recent Vital Signs: Last Vital Signs Temp 98 F 12/12/17 06:00 Pulse 92 H 12/12/17 06:00 Resp 20 12/12/17 06:00 BP 135/39 L 12/12/17 06:00 Pulse Ox 96 12/12/17 06:00 - Labs Result Diagrams: 12/12/17 09:00 12/12/17 09:00 Labs: Laboratory Results - last 24 hr 12/11/17 12/12/17 12/12/17 19:44 09:00 09:00 WBC 25.7 H* RBC 3.58 Hgb 8.3 L Hct 26.5 L MCV 74.0 L MCH 23.2 L MCHC 31.3 RDW 23.1 H Plt Count 351 MPV 9.5 Sodium 144 Potassium 3.3 L Chloride 108 H Carbon Dioxide 27 Anion Gap 12 BUN 53 H Creatinine 1.1 Est GFR ( Amer) > 60 Est GFR (Non-Af Amer) > 60 Random Glucose 106 Calcium 7.7 L Total Bilirubin 0.8 AST 58 ALT 49 Alkaline Phosphatase 198 H Total Protein 5.5 L Albumin 2.3 L Globulin 3.2 Albumin/Globulin Ratio 0.7 L Stool Occult Blood Negative
--- NOTE | 2017-12-12 14:35 | CP.PCM.CON ---
History of Present Illness - History of Present Illness History of Present Illness: General Surgery Consult Note for Dr. Vizcaino Consulted for sacral decubitus wound Mr. Harrison is an 87 year old amharic speaking M with pmhx of CHF, CVA, HTN, CKD , Dementia presents to [facility] ED from [facility] due to fever. Pt is a poor historian and minimally responsive to questions/commands and demented at baseline, HPI taken from chart. He had previously underwent surgical debridement of stage 4 ulcer with necrotizing fasciits on 11/17/17 and debridement , irrigation and wound vac placement on 11/22/17. Patient was discharged to correction. Per ID note, patient has been found positive for C. Diff at correction and subsequently readmitted to hospital. Patient had developed a fever on 12/10/17 which has persisted despite tylenol use. Patient admitted to hospital for sepsis workup. Pmhx: See HPI Socialhx: prior smoker, prior social EtOH, denied illicit drug use Allergies: NKDA Surghx: PEG tube, R chest thoracostomy tube, stage 4 sacral debridement, L Gluteal Nec Fasciitis Review of Systems - Review of Systems Systems not reviewed;Unavailable: Dementia, Altered Mental Status Past Patient History - Infectious Disease Hx of Infectious Diseases: None - Tetanus Immunizations Tetanus Immunization: Unknown - Past Medical History & Family History Past Medical History?: Yes - Past Social History Smoking Status: Former Smoker Alcohol: None Drugs: Denies - CARDIAC Hx Cardiac Disorders: Yes Hx Congestive Heart Failure: Yes Hx Hypercholesterolemia: Yes Hx Hypertension: Yes Hx Pacemaker: No Other/Comment: rapid response 12/07/16 for chest pain/tachycardis/htn - PULMONARY Hx Respiratory Disorders: Yes Hx Chronic Obstructive Pulmonary Disease (COPD): Yes Hx Pneumonia: Yes (aspiration) - NEUROLOGICAL Hx Neurological Disorder: Yes (responds to pain) HX Cerebrovascular Accident: Yes (TIA) Hx Dementia: Yes - HEENT Hx HEENT Problems: Yes (WEARS RX GLASSES) Hx Cataracts: Yes - RENAL Hx Chronic Kidney Disease: Yes Hx Renal Failure: Yes - ENDOCRINE/METABOLIC Hx Endocrine Disorders: No - HEMATOLOGICAL/ONCOLOGICAL Hx Blood Disorders: Yes (leukocytosis, blood transfusion) Hx Cancer: No - INTEGUMENTARY Hx Dermatological Problems: Yes (MULTIPLE ROUND OLD AGE SPOTS TO FACE,ARMS) Other/Comment: gluteal abcess,sacral stage IV pressure injury 11cm x 11cm x 3cm deep with tunneling and undermining, slough, bone exposure, muscle dectruction, necrosis,serosanguineous drainage no odor, wound vac to wound. left heel 4cm x 4cm x 0.1cm deep serosanguineous drainage, eschar, no odor stage IV treated with santyl dsd intact. left outer ankle 3cm x 3cm discolored blister no drainage dsd intact. multiple molees to face neck forehead, multiple ski discoloratins to arms and legs, dry thisk toenails and dry flakey skin both feet , peg dressing intact - MUSCULOSKELETAL/RHEUMATOLOGICAL Hx Musculoskeletal Disorders: Yes Hx Arthritis: Yes Hx Back Pain: Yes Hx Degenerative Joint Disease: Yes Hx Unsteady Gait: Yes (bedridden) Other/Comment: left shoulder bursitis - GASTROINTESTINAL Hx Gastrointestinal Disorders: Yes (c dif?) HX Swallowing Problems: Yes (peg tube let abd enteral feedings jevity) - GENITOURINARY/GYNECOLOGICAL Hx Genitourinary Disorders: Yes Hx Incontinence: Yes (pt has 2 way otero catheter) Hx Prostate Problems: Yes Hx Urinary Tract Infection: Yes - PSYCHIATRIC Hx Psychophysiologic Disorder: No - SURGICAL HISTORY Hx Surgeries: Yes Other/Comment: mitch picc, 11/22/17 necrotizing fascitis debridement of sacral wound with irrigation and application of wound vac. left heel debrided by dr key 12/01/17 - ANESTHESIA Hx Anesthesia Reactions: No (Pt unable to answer) Hx Malignant Hyperthermia: No (Pt unable to answer) Meds Allergies/Adverse Reactions: Allergies Allergy/AdvReac Type Severity Reaction Status Date / Time No Known Allergies Allergy Verified 12/11/17 09:04 - Medications Medications: Current Medications Albumin Human (Albumin Human 25% (25 Gm/100 Ml)) 25 gm IV Q6 [facility] Stop: 12/13/17 06:01 Albuterol/Ipratropium (Duoneb 3 Mg/0.5 Mg (3 Ml) Ud) 3 ml IH [id number] [facility] Last Admin: 12/12/17 13:02 Dose: 3 ml Enoxaparin Sodium (Lovenox) 30 mg SC DAILY [facility] PRN Reason: Protocol Metronidazole (Flagyl) 500 mg in 100 mls @ 100 mls/hr IVPB Q8 [facility] PRN Reason: Protocol Stop: 12/20/17 19:03 Last Admin: 12/12/17 05:56 Dose: 100 mls/hr Dextrose/Sodium Chloride (Dextrose 5%/0.45% Ns 1000 Ml) 1,000 mls @ 50 mls/hr IV .Q20H [facility] Metoprolol Tartrate (Lopressor) 50 mg GT BID [facility] Pantoprazole Sodium (Protonix Inj) 20 mg IVP DAILY [facility] Last Admin: 12/12/17 10:38 Dose: 20 mg Vancomycin HCl (Vancocin 25 Mg/Ml (Oral Use)) 250 mg PO QID [facility] PRN Reason: Protocol Stop: 12/20/17 19:04 Last Admin: 12/12/17 10:41 Dose: 250 mg Physical Exam - Constitutional Appears: Non-toxic, No Acute Distress, Chronically Ill - Head Exam Head Exam: ATRAUMATIC, NORMAL INSPECTION, NORMOCEPHALIC - Eye Exam Eye Exam: Normal appearance. absent: Conjunctival injection, Scleral icterus - ENT Exam ENT Exam: Mucous Membranes Moist, Normal Exam, Normal Oropharynx - Neck Exam Neck exam: Positive for: Normal Inspection - Respiratory Exam Respiratory Exam: Clear to Auscultation Bilateral, NORMAL BREATHING PATTERN. absent: Rales, Rhonchi, Wheezes - Cardiovascular Exam Cardiovascular Exam: Tachycardia, REGULAR RHYTHM, +S1, +S2 - GI/Abdominal Exam GI & Abdominal Exam: Distended, Hypoactive Bowel Sounds, Soft, Tenderness ( Moderate tenderness in RUQ and RLQ with deep palpation). absent: Rebound Additional comments: Gastrostomy tube in place. No surrounding erythema, drainage or purulent discharge - Rectal Exam Rectal Exam: NORMAL INSPECTION. absent: Bloody Stool, Hemorrhoids - Extremities Exam Additional comments: Unstageable L heel decubitus ulcer with severe tenderness to palpation and surrounding erythema. Discoloration and ecchymosis of R heel concerning for deep tissue injury; no crepitus, fluctuance or erythema noted. - Back Exam Back exam: absent: CVA tenderness (L), CVA tenderness (R), paraspinal tenderness , vertebral tenderness - Neurological Exam Neurological exam: Alert, Altered - Psychiatric Exam Psychiatric exam: Flat Affect, Normal Mood - Skin Additional comments: 15cm x 10cm x 1cm stage 4 sacral decubitus ulcer with 2cm of undermining in L Lateral and Superior borders. No surrounding crepitus, erythema or fluctuance noted. Some areas of exudate present at base. No expressible drainage. Results - Vital Signs Recent Vital Signs: Last Vital Signs Temp 98 F 12/12/17 06:00 Pulse 92 H 12/12/17 06:00 Resp 20 12/12/17 06:00 BP 135/39 L 12/12/17 06:00 Pulse Ox 96 12/12/17 06:00 - Labs Result Diagrams: 12/12/17 09:00 12/12/17 09:00 Labs: Laboratory Results - last 24 hr 12/11/17 12/12/17 12/12/17 19:44 09:00 09:00 WBC 25.7 H* RBC 3.58 Hgb 8.3 L Hct 26.5 L MCV 74.0 L MCH 23.2 L MCHC 31.3 RDW 23.1 H Plt Count 351 MPV 9.5 Sodium 144 Potassium 3.3 L Chloride 108 H Carbon Dioxide 27 Anion Gap 12 BUN 53 H Creatinine 1.1 Est GFR ( Amer) > 60 Est GFR (Non-Af Amer) > 60 Random Glucose 106 Calcium 7.7 L Total Bilirubin 0.8 AST 58 ALT 49 Alkaline Phosphatase 198 H Total Protein 5.5 L Albumin 2.3 L Globulin 3.2 Albumin/Globulin Ratio 0.7 L Stool Occult Blood Negative Assessment & Plan - Assessment and Plan (Free Text) Assessment: 87 year old male with sepsis and sacral decubitus ulcer Plan: - Decubitus ulcer does not appear to be source of infection. No surgical intervention indicated at this time - Santyl bid for stage 4 sacral ulcer - F/u blood & urine cultures - Distended gallbladder visualized on CT scan. F/u gallbladder u/s - continue antibiotics per ID recs - f/u GI recs for C. Diff management - Air mattress, turn q 2 hours - Recommend podiatry consult for bilateral heal wounds - Discussed with Dr. Carrillo Nash DO PGY1
--- NOTE | 2017-12-12 16:25 | US ---
HISTORY: RUQ tenderness, cholelithiasis COMPARISON: CT abdomen and pelvis 12/11/2017 TECHNIQUE: Sonographic evaluation of the abdomen. FINDINGS: LIVER: Measures 12.8 x 10.4 x 15.2 cm. Normal echogenicity of the liver parenchyma. Right hepatic lobe cyst 1.8 x 1.4 x 2.1 cm. -this simulates 2 contiguous cysts. Left hepatic lobe cyst 1.7 x 1.9 x 2.4 cm. No intrahepatic bile duct dilatation. GALLBLADDER: Gallstone present measuring at least 1.7 cm. There is gallbladder sludge present. No sonographic Gonzalez sign elicited. Per technologist. However the gallbladder wall does appear slightly thickened at approximately 3.7 mm. On some of the images-possibly of thread-like pericholecystic fluid cannot be excluded. Technologist is noted that the patient's limited ability to cooperate. COMMON BILE DUCT: Measures 4 point sick mm. No stones. No dilatation. PANCREAS: Unremarkable as visualized. No mass. No ductal dilatation. RIGHT KIDNEY: Measures 9.6 x 6.4 x 4.3cm. Normal echogenicity. No calculus, mass, or hydronephrosis. LEFT KIDNEY: Measures 10.3 x 6.6 x 4.3cm. Normal echogenicity. No calculus, mass, or hydronephrosis. SPLEEN: Not visualized AORTA: No aneurysmal dilatation. IVC: Unremarkable. OTHER FINDINGS: None. IMPRESSION: Large gallstone within gallbladder with gallbladder sludge. Mild gallbladder wall thickening an equivocal sliver like pericholecystic fluid. Possibility of acute subacute cholecystitis needs to be considered. Follow-up recommended. .No positive ultrasound Gonzalez sign elicited per the examining technologist. No dilated ducts Liver cysts
--- NOTE | 2017-12-12 17:25 | CP.PCM.CON ---
History of Present Illness - History of Present Illness History of Present Illness: Nephrology Consultation Note: Assessment: Stable Fever Acute Kidney Injury (N17.9) likely due to pre-renal state Hypokalemia Hypoalbuminemia, pleural effusion, malnourished state (BMI 14.6 and hypoalbuminemia) COPD, TIA/CVA, hx of peg tube, sacral decubitus ulcer, CHF, dementia, hypertension, ADIEL and C diff Anemia Plan No acute need for renal replacement therapy at this time. Hypertension control with meds as ordered. hold ACEI/ARB due to ADIEL Monitor Input/Output, daily weights and renal function with basic metabolic panel continue with IVF @ 50 ml/hr and will supplement with IV albumin GI, surgery following supplements lytes as needed Dose meds/antibiotics for improved GFR. Avoid nephrotoxins/NSAIDs Glycemic control Further work up/management as per primary team Thanks for allowing me to participate in care of your patient. Will follow patient with you. Please call if any Qs. had d/w team Dr Wilmar Garrison Office: [phone] Chief Complaint; unable HPI: Pt is a 87 M with hx of COPD, TIA/CVA, hx of peg tube, sacral decubitus ulcer, CHF, dementia, hypertension, ADIEL and C diff presented with complaints of fever from NH and being worked up. renal consult for ADIEL no known OTC/herbal meds or NSAIDs No recent iodinated contrast exposure. Noted episodes of low BP (101/57). ROS: unable to obtain from pt Physical Examination: General Appearance: frail elderly male malnourished, in no acute respiratory distress, ill appearing Vitals reviewed and noted as below Head; Atraumatic, normocephalic ENT: no ulcers no thrush. Tongue is midline/dry . Oropharynx: no rash EYES: Pupils are equal, round and reactive to light accommodation. Eye muscles and extraocular movement intact. Sclera is anicteric. Neck; supple no lymphadenopathy, no thyromegaly or bruit Lungs: Normal respiratory rate/effort. Breath sounds bilateral equal and clear anteriorly Heart: Normal rate. s1s2 normal. No rub or gallop. Extremities: no edema. No varicose veins Neurological: Patient is alert, awake and dementia Skin: Warm and dry. Normal turgor. No rash. Palpitation: Normal elasticity for age Abdomen: Abdomen is soft. Bowel sounds +. There is mild abdominal tenderness, no guarding/rigidity no organomegaly. has PEG tube Psych: unable MSK: no joint tenderness or swelling. Digits and nails normal, no deformity : kidney or bladder not palpable Labs/imaging reviewed. Past medical history, past surgical history, family history, social history, allergy reviewed and noted as below Family hx: no hx of CKD. Rest non-contributory renal imaing WNL UA 100 protein and trace ketone Past Patient History - Infectious Disease Hx of Infectious Diseases: None - Tetanus Immunizations Tetanus Immunization: Unknown - Past Medical History & Family History Past Medical History?: Yes - Past Social History Smoking Status: Former Smoker Alcohol: None Drugs: Denies - CARDIAC Hx Cardiac Disorders: Yes Hx Congestive Heart Failure: Yes Hx Hypercholesterolemia: Yes Hx Hypertension: Yes Hx Pacemaker: No Other/Comment: rapid response 12/07/16 for chest pain/tachycardis/htn - PULMONARY Hx Respiratory Disorders: Yes Hx Chronic Obstructive Pulmonary Disease (COPD): Yes Hx Pneumonia: Yes (aspiration) - NEUROLOGICAL Hx Neurological Disorder: Yes (responds to pain) HX Cerebrovascular Accident: Yes (TIA) Hx Dementia: Yes - HEENT Hx HEENT Problems: Yes (WEARS RX GLASSES) Hx Cataracts: Yes - RENAL Hx Chronic Kidney Disease: Yes Hx Renal Failure: Yes - ENDOCRINE/METABOLIC Hx Endocrine Disorders: No - HEMATOLOGICAL/ONCOLOGICAL Hx Blood Disorders: Yes (leukocytosis, blood transfusion) Hx Cancer: No - INTEGUMENTARY Hx Dermatological Problems: Yes (MULTIPLE ROUND OLD AGE SPOTS TO FACE,ARMS) Other/Comment: gluteal abcess,sacral stage IV pressure injury 11cm x 11cm x 3cm deep with tunneling and undermining, slough, bone exposure, muscle dectruction, necrosis,serosanguineous drainage no odor, wound vac to wound. left heel 4cm x 4cm x 0.1cm deep serosanguineous drainage, eschar, no odor stage IV treated with santyl dsd intact. left outer ankle 3cm x 3cm discolored blister no drainage dsd intact. multiple molees to face neck forehead, multiple ski discoloratins to arms and legs, dry thisk toenails and dry flakey skin both feet , peg dressing intact - MUSCULOSKELETAL/RHEUMATOLOGICAL Hx Musculoskeletal Disorders: Yes Hx Arthritis: Yes Hx Back Pain: Yes Hx Degenerative Joint Disease: Yes Hx Unsteady Gait: Yes (bedridden) Other/Comment: left shoulder bursitis - GASTROINTESTINAL Hx Gastrointestinal Disorders: Yes (c dif?) HX Swallowing Problems: Yes (peg tube let abd enteral feedings jevity) - GENITOURINARY/GYNECOLOGICAL Hx Genitourinary Disorders: Yes Hx Incontinence: Yes (pt has 2 way otero catheter) Hx Prostate Problems: Yes Hx Urinary Tract Infection: Yes - PSYCHIATRIC Hx Psychophysiologic Disorder: No - SURGICAL HISTORY Hx Surgeries: Yes Other/Comment: mitch picc, 11/22/17 necrotizing fascitis debridement of sacral wound with irrigation and application of wound vac. left heel debrided by dr key 12/01/17 - ANESTHESIA Hx Anesthesia Reactions: No (Pt unable to answer) Hx Malignant Hyperthermia: No (Pt unable to answer) Meds Allergies/Adverse Reactions: Allergies Allergy/AdvReac Type Severity Reaction Status Date / Time No Known Allergies Allergy Verified 12/11/17 09:04 - Medications Medications: Current Medications Albumin Human (Albumin Human 25% (25 Gm/100 Ml)) 25 gm IV Q6 [facility] Stop: 12/13/17 06:01 Last Admin: 12/12/17 13:09 Dose: 25 gm Albuterol/Ipratropium (Duoneb 3 Mg/0.5 Mg (3 Ml) Ud) 3 ml IH [id number] [facility] Last Admin: 12/12/17 13:02 Dose: 3 ml Collagenase (Santyl) 1 gm TOP BID [facility] Enoxaparin Sodium (Lovenox) 30 mg SC DAILY [facility] PRN Reason: Protocol Last Admin: 12/12/17 13:09 Dose: 30 mg Metronidazole (Flagyl) 500 mg in 100 mls @ 100 mls/hr IVPB Q8 [facility] PRN Reason: Protocol Stop: 12/20/17 19:03 Last Admin: 12/12/17 05:56 Dose: 100 mls/hr Dextrose/Sodium Chloride (Dextrose 5%/0.45% Ns 1000 Ml) 1,000 mls @ 50 mls/hr IV .Q20H [facility] Last Admin: 12/12/17 13:10 Dose: 50 mls/hr Metoprolol Tartrate (Lopressor) 50 mg GT BID [facility] Pantoprazole Sodium (Protonix Inj) 20 mg IVP DAILY [facility] Last Admin: 12/12/17 10:38 Dose: 20 mg Vancomycin HCl (Vancocin 25 Mg/Ml (Oral Use)) 250 mg PO QID [facility] PRN Reason: Protocol Stop: 12/20/17 19:04 Last Admin: 12/12/17 10:41 Dose: 250 mg Results - Vital Signs Recent Vital Signs: Last Vital Signs Temp 98.6 F 12/12/17 14:00 Pulse 57 L 12/12/17 14:00 Resp 20 12/12/17 14:00 BP 109/45 L 12/12/17 14:00 Pulse Ox 94 L 12/12/17 14:00 - Labs Result Diagrams: 12/12/17 09:00 12/12/17 09:00 Labs: Laboratory Results - last 24 hr 12/11/17 12/12/17 12/12/17 19:44 09:00 09:00 WBC 25.7 H* RBC 3.58 Hgb 8.3 L Hct 26.5 L MCV 74.0 L MCH 23.2 L MCHC 31.3 RDW 23.1 H Plt Count 351 MPV 9.5 Sodium 144 Potassium 3.3 L Chloride 108 H Carbon Dioxide 27 Anion Gap 12 BUN 53 H Creatinine 1.1 Est GFR ( Amer) > 60 Est GFR (Non-Af Amer) > 60 Random Glucose 106 Calcium 7.7 L Total Bilirubin 0.8 AST 58 ALT 49 Alkaline Phosphatase 198 H Total Protein 5.5 L Albumin 2.3 L Globulin 3.2 Albumin/Globulin Ratio 0.7 L Stool Occult Blood Negative
--- NOTE | 2017-12-12 17:58 | CT ---
PROCEDURE: CT Abdomen and Pelvis with contrast HISTORY: Abdominal tenderness. COMPARISON: 11/16/2017 CT abdomen and pelvis. 11/18/2017 abdominal ultrasound TECHNIQUE: Contrast dose: Oral contrast only. Administered Through indwelling PEG tube Radiation dose: Total exam DLP = 589.98 mGy-cm. This CT exam was performed using one or more of the following dose reduction techniques: Automated exposure control, adjustment of the mA and/or kV according to patient size, and/or use of iterative reconstruction technique. FINDINGS: LOWER THORAX: New atelectasis/ consolidative changes both lower lobes. LIVER: Unremarkable. No gross lesion or ductal dilatation. Liver lesions identified on prior contrast-enhanced CT are again visualized. GALLBLADDER AND BILE DUCTS: Unremarkable. PANCREAS: Unremarkable. No gross lesion or ductal dilatation. SPLEEN: Unremarkable. ADRENALS: Unremarkable. No mass. KIDNEYS AND URETERS: Unremarkable. No hydronephrosis. No solid mass. VASCULATURE: Unremarkable. No aortic aneurysm. BOWEL: Unremarkable. No obstruction. No gross mural thickening. APPENDIX: Normal appendix. PERITONEUM: Unremarkable. No free fluid. No free air. LYMPH NODES: Unremarkable. No enlarged lymph nodes. BLADDER: Light catheter decompresses the urinary bladder. REPRODUCTIVE: Unremarkable. BONES: No acute fracture. OTHER FINDINGS: Sacral decubitus ulcers again identified. Multiple foci of air within the presacral region and in the left gluteal muscles has resolved suggesting recent surgical intervention, debridement. IMPRESSION: Cholelithiasis without CT evidence of acute cholecystitis. Likely postoperative changes/debridement of sacral decubitus ulcer region and left gluteal muscles. Additional benign and/or incidental findings described above. Concordant results (preliminary interpretation) provided by [employer] Procedure Completed: 19:49 Preliminary ([employer]) Report: Dictated and Authenticated: 20:13 Final Interpretation: 17:51 December 12, 2017.
[2017-12-12] MEDS: Collagenase 250 Units/gm Ointment(30 gm) TOP SCH (18:07)
[2017-12-13] MEDS: Albuterol-Ipratrop 3 mg / 0.5 (3 ml) UD IH SCH ×4 (01:00→20:30)
[2017-12-13] MEDS: Dextrose 5%/0.45% NS 1,000 ML IV SCH (03:10)
[2017-12-13] MEDS: Albumin Human 25% (25 gm/100 ml) IV SCH ×2 (05:02)
[2017-12-13] MEDS: metroNIDAZOLE IV 500 mg/100 ml 500 MG/100 ML BAG IVPB SCH ×3 (05:03→21:34)
--- NOTE | 2017-12-13 06:21 | HP ---
DATE OF EXAM: 12/11/2017 The patient admitted to medical floor. REASON FOR ADMISSION: C. diff colitis. HISTORY OF PRESENT ILLNESS: This is an 87-year-old male from rehab unit, [facility], seen by Dr. Sarah Sheriff. The patient came in because of persistent diarrhea, had a fever. The patient was there for IV antibiotics for stage IV decubitus, wound VAC, and local wound care. She has been appeared to have developed diarrhea. Seems sick and lethargic. The patient was brought into the ER for evaluations. 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 Local wound care applied. He has also wound VAC at [facility]. The patient has also history of hypertension, hypercholesterolemia, dementia, CVA, PEG tube placement, chronic osteoarthritis, COPD, pneumonia. HOME MEDICATIONS: At the detention, he takes oxycodone 5 mg every 6 hours p.r.n. He is getting vancomycin over there IV daily and has been seen by Nephrology and Dr. Mcdowell. Silvadene cream locally. He is also using collagenase or Santyl for local wound care, Aricept 5 mg at bedtime, Xopenex four times a day, Lidoderm patch, Imodium p.r.n., Cozaar 50 every day, magnesium 400, Merrem 1 g every 8 hours, pantoprazole 40, potassium 20, aspirin 81, DuoNeb, Tylenol, and azithromycin 500 daily. ALLERGIES: NO KNOWN ALLERGIES. SOCIAL HISTORY: He lives with his daughter, supportive. FAMILY HISTORY: Noncontributory. REVIEW OF SYSTEMS: As in the present illness. The patient is bedridden due to his comorbid illnesses, dementia, CVA, and inability to walk. PHYSICAL EXAMINATION: VITAL SIGNS: Temperature 98.9, heart rate 92, blood pressure 126/63, respirations 20, saturation 94% on 2 L. HEAD AND NECK: Normal. No JVD. No thyromegaly. CHEST: Diminished breath sounds, but clear. CARDIAC: First sound and second sound normal. ABDOMEN: Soft. There is tenderness, more on the right side. PEG site is clean. Bowel sounds intact. EXTREMITIES: There is no edema. Healed on both lower extremities. NEUROLOGIC: He does not talk, he opens his eyes. He makes a few words, yes and no, but otherwise patient mildly lethargic. SKIN: Sacral decubitus stage IV was noted on his back, covered with gauze. LABORATORY DATA: When he came in, white count 23.4, hemoglobin 9.7, hematocrit 30.7, platelets 372. Chemistries: Sodium 144, potassium 4, chloride 103, bicarbonate 31, BUN 62, creatinine 1.3, blood sugar 139, calcium 8, magnesium 2.5. Liver function tests are elevated. AST 67, ALT 61, alkaline phosphatase 233. IMPRESSION AND PLAN: 1. This is an 87-year-old male, came in with diagnosis of Clostridium difficile colitis. Has tender abdomen on exam with leukocytosis. Will admit the patient for severe sepsis. Get a CT abdomen, GI consult with Dr. Valerio, ID consult with Dr. Zayas. I will put him on Flagyl p.o. if possible or IV and will consider adding more antibiotics as per ID consult. 2. Will get the surgical team to follow up on the wound care, the stage IV sacral decubitus. 3. Hypertension, cerebrovascular accident, hypercholesterolemia. Will resume aspirin, will resume other medications, and will follow up clinically. The patient will also maintain DuoNeb for his chronic obstructive pulmonary disease, metoprolol 50 b.i.d., Lovenox 30 mg for deep venous thrombosis prophylaxis, Protonix 20 IV daily, and Cozaar 50 mg daily. Continue current therapy. Cody Aguilar MD
[2017-12-13 06:53] LABS: BASO # 0.05 K/mm3 (0.0-2.0); BASO % 0.2 % (0.0-3.0); EOS # 0.1 (0.0-0.7); EOS % 0.2 % (1.5-5.0); GRAN # 18.01 (1.4-6.5); GRAN % 85.3 % (50.0-68.0); HEMOGLOBIN 7.7 g/dL (14.0-18.0); LYMPH # 1.7 (1.2-3.4); LYMPH % 8.1 % (22.0-35.0); MEAN CELL VOLUME 74.3 fl (80.0-105.0); MEAN CORPUSCULAR HEMOGLOBIN 23.5 pg (25.0-35.0); MEAN CORPUSCULAR HGB CONC 31.7 g/dl (31.0-37.0); MEAN PLATELET VOLUME 9.5 fl (7.0-11.0); MONO # 1.3 (0.1-0.6); MONO % 6.2 % (1.0-6.0); RBC 3.27 10^6/uL (3.5-6.1); RED CELL DISTRIBUTION WIDTH 23.3 % (11.5-14.5); WHITE BLOOD COUNT 21.1 10^3/ul (4.5-11.0)
[2017-12-13 07:11] LABS: ALB/GLOB RATIO 1.1 (1.1-1.8); ALBUMIN 3.2 g/dL (3.0-4.8); ALT/SGPT 49 U/L (7-56); AST/SGOT 55 U/L (17-59); BLOOD UREA NITROGEN 39 mg/dL (7-21); CALCIUM 8.4 mg/dL (8.4-10.5); GFR AFRICAN-AMERICAN > 60; GFR NON-AFRICAN AMERICAN > 60
--- NOTE | 2017-12-13 07:34 | CP.PCM.PN ---
Subjective - Date & Time of Evaluation Date of Evaluation: 12/13/17 Time of Evaluation: 09:10 - Subjective Subjective: GI Progress Note for Dr. Teodoro Webber, IM PGY-3 Patient seen and examined at bedside. No acute events reported overnight. Patient appears more lethargic/somnolent today, only shakes head no to question of vomiting and yes to question of RUQ abd pain on palpation, non-verbal this AM and barely following commands, rapidly returns to somnolence after any arousal. Objective - Vital Signs/Intake and Output Vital Signs (last 24 hours): Temp Pulse Resp BP Pulse Ox 99.1 F 93 H 18 117/78 94 L 12/12/17 22:43 12/12/17 22:43 12/12/17 22:43 12/12/17 22:43 12/12/17 22:43 Intake and Output: 12/13/17 12/13/17 06:59 18:59 Output Total 350 Balance -350 - Medications Medications: Current Medications Albuterol/Ipratropium (Duoneb 3 Mg/0.5 Mg (3 Ml) Ud) 3 ml IH [id number] [facility] Last Admin: 12/13/17 07:21 Dose: 3 ml Collagenase (Santyl) 1 gm TOP BID [facility] Last Admin: 12/12/17 18:07 Dose: 1 applic Enoxaparin Sodium (Lovenox) 30 mg SC DAILY [facility] PRN Reason: Protocol Last Admin: 12/12/17 13:09 Dose: 30 mg Metronidazole (Flagyl) 500 mg in 100 mls @ 100 mls/hr IVPB Q8 [facility] PRN Reason: Protocol Stop: 12/20/17 19:03 Last Admin: 12/13/17 05:03 Dose: 100 mls/hr Dextrose/Sodium Chloride (Dextrose 5%/0.45% Ns 1000 Ml) 1,000 mls @ 50 mls/hr IV .Q20H [facility] Last Admin: 12/13/17 03:10 Dose: 50 mls/hr Metoprolol Tartrate (Lopressor) 50 mg GT BID [facility] Last Admin: 12/12/17 21:04 Dose: 50 mg Pantoprazole Sodium (Protonix Inj) 20 mg IVP DAILY [facility] Last Admin: 12/12/17 10:38 Dose: 20 mg Vancomycin HCl (Vancocin 25 Mg/Ml (Oral Use)) 250 mg PO QID [facility] PRN Reason: Protocol Stop: 12/20/17 19:04 Last Admin: 12/12/17 21:02 Dose: 250 mg - Labs Labs: 12/13/17 06:30 12/13/17 06:30 PT 16.4 SECONDS (9.4-12.5) H 12/11/17 10:00 INR 1.42 (0.93-1.08) H 12/11/17 10:00 APTT 30.3 Seconds (25.1-36.5) 12/11/17 10:00 - Additional Findings Additional findings: - Constitutional Appears: Non-toxic, No Acute Distress, Chronically Ill, Lethargic/somnolent - Head Exam Head Exam: ATRAUMATIC, NORMAL INSPECTION, NORMOCEPHALIC - Eye Exam Eye Exam: Normal appearance. absent: Conjunctival injection, Scleral icterus, EOMI (not following commands for EOMI, minimally tracking before returning to somnolent state, so unable to fully assess) Pupil Exam: absent: Fixed, Irregular - ENT Exam ENT Exam: Mucous Membranes Dry Additional comments: dried secretions throughout mouth - Neck Exam Neck exam: Positive for: Normal Inspection. Negative for: Lymphadenopathy, Thyromegaly - Respiratory Exam Respiratory Exam: Mildly Decreased Breath Sounds otherwise CTAB, NORMAL BREATHING PATTERN. absent: Accessory Muscle Use, Prolonged Expiratory Phase, Rales, Rhonchi, Wheezes, Respiratory Distress, Stridor - Cardiovascular Exam Cardiovascular Exam: REGULAR RHYTHM, RRR, +S1, +S2. absent: Bradycardia, Tachycardia, Irregular Rhythm, JVD - GI/Abdominal Exam GI & Abdominal Exam: Normal Bowel Sounds, Freely mobile PEG tube, RUQ tenderness to palpation (pt admits to this and does react to palpation at this site). absent: Diminished Bowel Sounds, Distended, Firm, Guarding, Hyperactive Bowel Sounds, Hypoactive Bowel Sounds Additional comments: PEG tube in place, no appreciable surrounding erythema or induration, not warm to touch, no acute reaction to deep palpation, no bloody or purulent discharge from the tube or surrounding area appreciated - Extremities Exam Extremities exam: Positive for: normal inspection, pedal pulses present. Negative for: calf tenderness, joint swelling, pedal edema, tenderness - Neurological Exam Somnolent/lethargic, arousable but rapidly returns to somnolence, not following most commands, minimal spontaneous movements - Psychiatric Exam demented, minimally responsive (less than last 2 days) - Skin Skin Exam: Dry, Intact, Normal Color, Warm Assessment and Plan - Assessment and Plan (Free Text) Assessment: This is an 87 yo M with PMH of CHF, CVA, COPD, dementia, HTN, CKD, hx of PEG tube, and hx of hydropneumothorax who was brought in by ambulance from assisted ([facility]) due to fever since yesterday. He was being treated for C diff infectious at the [place], and GI is being consulted for the C Diff infection + Peg tube/abd tenderness. He has also been found to have enlarged GB with cholelithiasis present, concerning for acute cholecystitis. Plan: Dementia, possible hypoactive delirium overlying vs AMS 2/2 infectious process Hx CVA, COPD, HTN Hx PEG tube, reported abd tenderness at PEG-site Sepsis 2/2 UTI vs C diff, not severe sepsis as hemodynamically stable and lactate only 1.9 (on VBG) Cholelithiasis -Flagyl IV and Vanco PO as per ID -Stool C Diff positive for antigen and toxin; however, as patient retains elevated WBCs and has worsening AMS, concern for possible other infectious source (GB given possible cholecystitis, sacral wound, PNA?), pending blood and urine cx results -Seen by Paliative service, full code as per family (per Palliative's note, family not present during exam) -Recommend NPO until AMS improved and can be cleared by Speech, high risk for aspiration in current state -Sodium increased despite on 1/2 NS + D5, as per nephro likely elevated 2/2 dehydration, losses from diarrhea likely greater than gains from IVF -No report from [facility] of unable to flush PEG, appears to still be patent, no appreciable tenderness or abnormality on exam, freely mobile peg on exam -CT abd/pelvis notable Bibasilar consolidation at lung base, Gallstones with distension/wall thickening concerning for cholecystitis. -Surgery, ID, Nephro, and Podiatry following, appreciate their insights Pt seen, reviewed, and discussed with attending, Dr Valerio
--- NOTE | 2017-12-13 08:43 | CP.PCM.PN ---
Subjective - Date & Time of Evaluation Date of Evaluation: 12/13/17 Time of Evaluation: 07:30 - Subjective Subjective: General Surgery Note for Dr. Vizcaino Patient seen and examined at bedside. No acute event overnight. Patient answers some basic questions and follows some basic commands. Patient indicating that he has some abdominal pain but unable to give definite location for pain. Objective - Vital Signs/Intake and Output Vital Signs (last 24 hours): Temp Pulse Resp BP Pulse Ox 98.2 F 100 H 20 150/76 96 12/13/17 06:00 12/13/17 06:00 12/13/17 06:00 12/13/17 06:00 12/13/17 06:00 Intake and Output: 12/13/17 12/13/17 06:59 18:59 Output Total 350 Balance -350 - Medications Medications: Current Medications Albuterol/Ipratropium (Duoneb 3 Mg/0.5 Mg (3 Ml) Ud) 3 ml IH [id number] [facility] Last Admin: 12/13/17 07:21 Dose: 3 ml Collagenase (Santyl) 1 gm TOP BID [facility] Last Admin: 12/12/17 18:07 Dose: 1 applic Enoxaparin Sodium (Lovenox) 30 mg SC DAILY [facility] PRN Reason: Protocol Last Admin: 12/12/17 13:09 Dose: 30 mg Metronidazole (Flagyl) 500 mg in 100 mls @ 100 mls/hr IVPB Q8 [facility] PRN Reason: Protocol Stop: 12/20/17 19:03 Last Admin: 12/13/17 05:03 Dose: 100 mls/hr Dextrose/Sodium Chloride (Dextrose 5%/0.45% Ns 1000 Ml) 1,000 mls @ 50 mls/hr IV .Q20H [facility] Last Admin: 12/13/17 03:10 Dose: 50 mls/hr Metoprolol Tartrate (Lopressor) 50 mg GT BID [facility] Last Admin: 12/12/17 21:04 Dose: 50 mg Pantoprazole Sodium (Protonix Inj) 20 mg IVP DAILY [facility] Last Admin: 12/12/17 10:38 Dose: 20 mg Vancomycin HCl (Vancocin 25 Mg/Ml (Oral Use)) 250 mg PO QID [facility] PRN Reason: Protocol Stop: 12/20/17 19:04 Last Admin: 12/12/17 21:02 Dose: 250 mg - Labs Labs: 12/13/17 06:30 12/13/17 06:30 PT 16.4 SECONDS (9.4-12.5) H 12/11/17 10:00 INR 1.42 (0.93-1.08) H 12/11/17 10:00 APTT 30.3 Seconds (25.1-36.5) 12/11/17 10:00 - Constitutional Appears: No Acute Distress - Eye Exam Eye Exam: Normal appearance - ENT Exam ENT Exam: Mucous Membranes Moist - Respiratory Exam Respiratory Exam: NORMAL BREATHING PATTERN - Cardiovascular Exam Cardiovascular Exam: REGULAR RHYTHM - GI/Abdominal Exam GI & Abdominal Exam: Soft, Tenderness, Normal Bowel Sounds - Extremities Exam Extremities Exam: Normal Capillary Refill - Neurological Exam Neurological Exam: Alert, Awake - Psychiatric Exam Psychiatric exam: Flat Affect - Skin Skin Exam: Dry, Warm Assessment and Plan - Assessment and Plan (Free Text) Assessment: 87 year old male with sepsis, sacral decubitus ulcer possible cholecystitis; ABUS shows large gallstone, gb wall thickening with small amount of pericholecystic fluid Plan: - Santyl bid for stage 4 sacral ulcer - F/u blood & urine cultures - continue antibiotics per ID recs - f/u GI recommendations - Air mattress, turn q 2 hours - Recommend podiatry consult for bilateral heal wounds -Further recommendations as per Dr. Carrillo Watkins PGY2
[2017-12-13] MEDS: Potassium Chloride 40 mEq/30 ml LIQ UD GT SCH ×3 (10:42→17:32)
[2017-12-13] MEDS: Enoxaparin 30 mg Syringe SC SCH (10:42)
[2017-12-13] MEDS: Collagenase 250 Units/gm Ointment(30 gm) TOP SCH (10:42)
[2017-12-13] MEDS: Vancomycin 25 MG/ML PO SCH ×3 (10:43→21:34)
--- NOTE | 2017-12-13 12:12 | CP.PCM.PN ---
Subjective - Date & Time of Evaluation Date of Evaluation: 12/13/17 Time of Evaluation: 12:11 - Subjective Subjective: Nephrology Consultation Note: Assessment: Stable Fever with C diff diarrhoea Acute Kidney Injury (N17.9) likely due to pre-renal state Hypokalemia, hypernatremia Hypoalbuminemia, pleural effusion, malnourished state (BMI 14.6 and hypoalbuminemia) COPD, TIA/CVA, hx of peg tube, sacral decubitus ulcer, CHF, dementia, hypertension, ADIEL and C diff Anemia Plan No acute need for renal replacement therapy at this time. Hypertension control with meds as ordered. hold ACEI/ARB due to ADIEL Monitor Input/Output, daily weights and renal function with basic metabolic panel continue with IVF but as D5W due to hypernatremia GI, surgery following supplements lytes as needed Dose meds/antibiotics for improved GFR. Avoid nephrotoxins/NSAIDs Glycemic control Further work up/management as per primary team Thanks for allowing me to participate in care of your patient. Will follow patient with you. Please call if any Qs. had d/w team Dr Wilmar Garrison Office: [phone] Chief Complaint; unable HPI: Pt is a 87 M with hx of COPD, TIA/CVA, hx of peg tube, sacral decubitus ulcer, CHF, dementia, hypertension, ADIEL and C diff presented with complaints of fever from [place] and being worked up. renal consult for ADIEL no known OTC/herbal meds or NSAIDs No recent iodinated contrast exposure. Noted episodes of low BP (101/57). ROS: unable to obtain from pt Physical Examination: General Appearance: frail elderly male malnourished, in no acute respiratory distress, ill appearing Vitals reviewed and noted as below Head; Atraumatic, normocephalic ENT: no ulcers no thrush. Tongue is midline/dry . Oropharynx: no rash EYES: Pupils are equal, round and reactive to light accommodation. Eye muscles and extraocular movement intact. Sclera is anicteric. Neck; supple no lymphadenopathy, no thyromegaly or bruit Lungs: Normal respiratory rate/effort. Breath sounds bilateral equal and clear anteriorly Heart: Normal rate. s1s2 normal. No rub or gallop. Extremities: no edema. No varicose veins Neurological: Patient is alert, awake and dementia Skin: Warm and dry. Normal turgor. No rash. Palpitation: Normal elasticity for age Abdomen: Abdomen is soft. Bowel sounds +. There is mild abdominal tenderness, no guarding/rigidity no organomegaly. has PEG tube Psych: unable MSK: no joint tenderness or swelling. Digits and nails normal, no deformity : kidney or bladder not palpable Labs/imaging reviewed. Past medical history, past surgical history, family history, social history, allergy reviewed and noted as below Family hx: no hx of CKD. Rest non-contributory renal imaing WNL UA 100 protein and trace ketone Objective - Vital Signs/Intake and Output Vital Signs (last 24 hours): Temp Pulse Resp BP Pulse Ox 98.2 F 100 H 20 150/76 96 12/13/17 06:00 12/13/17 06:00 12/13/17 06:00 12/13/17 06:00 12/13/17 06:00 Intake and Output: 12/13/17 12/13/17 06:59 18:59 Output Total 350 Balance -350 - Medications Medications: Current Medications Albuterol/Ipratropium (Duoneb 3 Mg/0.5 Mg (3 Ml) Ud) 3 ml IH [id number] [facility] Last Admin: 12/13/17 07:21 Dose: 3 ml Collagenase (Santyl) 1 gm TOP BID [facility] Last Admin: 12/13/17 10:42 Dose: 1 applic Enoxaparin Sodium (Lovenox) 30 mg SC DAILY [facility] PRN Reason: Protocol Last Admin: 12/13/17 10:42 Dose: 30 mg Metronidazole (Flagyl) 500 mg in 100 mls @ 100 mls/hr IVPB Q8 [facility] PRN Reason: Protocol Stop: 12/20/17 19:03 Last Admin: 12/13/17 05:03 Dose: 100 mls/hr Dextrose (Dextrose 5% In Water 1000 Ml) 1,000 mls @ 75 mls/hr IV .[id number] [facility] Last Admin: 12/13/17 10:36 Dose: 75 mls/hr Metoprolol Tartrate (Lopressor) 50 mg GT BID [facility] Last Admin: 12/13/17 10:41 Dose: 50 mg Pantoprazole Sodium (Protonix Inj) 20 mg IVP DAILY [facility] Last Admin: 12/13/17 10:00 Dose: 20 mg Potassium Chloride (Potassium Chloride Oral Soln) 40 meq GT Q4 [facility] Stop: 12/13/17 16:01 Last Admin: 12/13/17 10:42 Dose: 40 meq Vancomycin HCl (Vancocin 25 Mg/Ml (Oral Use)) 250 mg PO QID [facility] PRN Reason: Protocol Stop: 12/20/17 19:04 Last Admin: 12/13/17 10:43 Dose: 250 mg - Labs Labs: 12/13/17 06:30 12/13/17 06:30 PT 16.4 SECONDS (9.4-12.5) H 12/11/17 10:00 INR 1.42 (0.93-1.08) H 12/11/17 10:00 APTT 30.3 Seconds (25.1-36.5) 12/11/17 10:00
--- NOTE | 2017-12-13 12:26 | CP.PCM.CON ---
<Norma eDsouza - Last Filed: 12/13/17 12:49> History of Present Illness - History of Present Illness History of Present Illness: Podiatry consult note for Dr. Hewitt, 87 year old icelandic speaking M with pmhx of CHF, CVA, HTN, CKD, Dementia was seen for bilateral heel wounds. Patient is accompanied by his family. Patient is seen resting comfortably and in no acute distress. Patients family states he is unable to move very much and has had the heel wounds for over 3 months. Patient admits to mild pain in the heel. Patient denies seeing a ground defence officer regularly. Patient was seen wearing multipodus boots. Patients dressing on the left foot is seen to be dry, clean and intact. Pmhx: See HPI Socialhx: prior smoker, prior social EtOH, denied illicit drug use Allergies: NKDA Surghx: PEG tube, R chest thoracostomy tube, stage 4 sacral debridement, L Gluteal Nec Fasciitis Past Patient History - Infectious Disease Hx of Infectious Diseases: None - Tetanus Immunizations Tetanus Immunization: Unknown - Past Medical History & Family History Past Medical History?: Yes - Past Social History Smoking Status: Former Smoker Alcohol: None Drugs: Denies - CARDIAC Hx Cardiac Disorders: Yes Hx Congestive Heart Failure: Yes Hx Hypercholesterolemia: Yes Hx Hypertension: Yes Hx Pacemaker: No Other/Comment: rapid response 12/07/16 for chest pain/tachycardis/htn - PULMONARY Hx Respiratory Disorders: Yes Hx Chronic Obstructive Pulmonary Disease (COPD): Yes Hx Pneumonia: Yes (aspiration) - NEUROLOGICAL Hx Neurological Disorder: Yes (responds to pain) HX Cerebrovascular Accident: Yes (TIA) Hx Dementia: Yes - HEENT Hx HEENT Problems: Yes (WEARS RX GLASSES) Hx Cataracts: Yes - RENAL Hx Chronic Kidney Disease: Yes Hx Renal Failure: Yes - ENDOCRINE/METABOLIC Hx Endocrine Disorders: No - HEMATOLOGICAL/ONCOLOGICAL Hx Blood Disorders: Yes (leukocytosis, blood transfusion) Hx Cancer: No - INTEGUMENTARY Hx Dermatological Problems: Yes (MULTIPLE ROUND OLD AGE SPOTS TO FACE,ARMS) Other/Comment: gluteal abcess,sacral stage IV pressure injury 11cm x 11cm x 3cm deep with tunneling and undermining, slough, bone exposure, muscle dectruction, necrosis,serosanguineous drainage no odor, wound vac to wound. left heel 4cm x 4cm x 0.1cm deep serosanguineous drainage, eschar, no odor stage IV treated with santyl dsd intact. left outer ankle 3cm x 3cm discolored blister no drainage dsd intact. multiple molees to face neck forehead, multiple ski discoloratins to arms and legs, dry thisk toenails and dry flakey skin both feet , peg dressing intact - MUSCULOSKELETAL/RHEUMATOLOGICAL Hx Musculoskeletal Disorders: Yes Hx Arthritis: Yes Hx Back Pain: Yes Hx Degenerative Joint Disease: Yes Hx Unsteady Gait: Yes (bedridden) Other/Comment: left shoulder bursitis - GASTROINTESTINAL Hx Gastrointestinal Disorders: Yes (c dif?) HX Swallowing Problems: Yes (peg tube let abd enteral feedings jevity) - GENITOURINARY/GYNECOLOGICAL Hx Genitourinary Disorders: Yes Hx Incontinence: Yes (pt has 2 way otero catheter) Hx Prostate Problems: Yes Hx Urinary Tract Infection: Yes - PSYCHIATRIC Hx Psychophysiologic Disorder: No - SURGICAL HISTORY Hx Surgeries: Yes Other/Comment: mitch picc, 11/22/17 necrotizing fascitis debridement of sacral wound with irrigation and application of wound vac. left heel debrided by dr key 12/01/17 - ANESTHESIA Hx Anesthesia Reactions: No (Pt unable to answer) Hx Malignant Hyperthermia: No (Pt unable to answer) Meds Allergies/Adverse Reactions: Allergies Allergy/AdvReac Type Severity Reaction Status Date / Time No Known Allergies Allergy Verified 12/11/17 09:04 - Medications Medications: Current Medications Albuterol/Ipratropium (Duoneb 3 Mg/0.5 Mg (3 Ml) Ud) 3 ml IH [id number] [facility] Last Admin: 12/13/17 07:21 Dose: 3 ml Collagenase (Santyl) 1 gm TOP BID [facility] Last Admin: 12/13/17 10:42 Dose: 1 applic Enoxaparin Sodium (Lovenox) 30 mg SC DAILY [facility] PRN Reason: Protocol Last Admin: 12/13/17 10:42 Dose: 30 mg Metronidazole (Flagyl) 500 mg in 100 mls @ 100 mls/hr IVPB Q8 [facility] PRN Reason: Protocol Stop: 12/20/17 19:03 Last Admin: 12/13/17 05:03 Dose: 100 mls/hr Dextrose (Dextrose 5% In Water 1000 Ml) 1,000 mls @ 75 mls/hr IV .[id number] [facility] Last Admin: 12/13/17 10:36 Dose: 75 mls/hr Metoprolol Tartrate (Lopressor) 50 mg GT BID [facility] Last Admin: 12/13/17 10:41 Dose: 50 mg Pantoprazole Sodium (Protonix Inj) 20 mg IVP DAILY [facility] Last Admin: 12/13/17 10:00 Dose: 20 mg Potassium Chloride (Potassium Chloride Oral Soln) 40 meq GT Q4 [facility] Stop: 12/13/17 16:01 Last Admin: 12/13/17 10:42 Dose: 40 meq Vancomycin HCl (Vancocin 25 Mg/Ml (Oral Use)) 250 mg PO QID [facility] PRN Reason: Protocol Stop: 12/20/17 19:04 Last Admin: 12/13/17 10:43 Dose: 250 mg Physical Exam - Constitutional Appears: Well, Non-toxic, No Acute Distress - Head Exam Head Exam: ATRAUMATIC, NORMOCEPHALIC - Extremities Exam Additional comments: Bilateral lower extremity exam: Vascular: DP/PT pulses are non palpable, CFT <3 secs x10, TG warm to warm, pedal hair is absent, no edema or erythema noted. Derm: Left: heel wound noted plantar and posterior aspect of the heel, measuring approximately 5.5 cm x 3.0 cm. 100% necrotic base, no draining, no malodor, no probe to bone, no purulence, no tracking or tunneling noted, no clinical signs of infection Right: superficial necrotic eschar noted on the plantar medial aspect of the heel. no open lesions noted. no fluctuance, no clinical signs of infection. Neuro: protective sensation grossly intact Ortho: moderate pain on palpation to the wound. - Neurological Exam Neurological exam: Alert - Psychiatric Exam Psychiatric exam: Normal Affect Results - Vital Signs Recent Vital Signs: Last Vital Signs Temp 98.2 F 12/13/17 06:00 Pulse 100 H 12/13/17 06:00 Resp 20 12/13/17 06:00 BP 150/76 12/13/17 06:00 Pulse Ox 96 12/13/17 06:00 - Labs Result Diagrams: 12/13/17 06:30 12/13/17 06:30 Labs: Laboratory Results - last 24 hr 12/13/17 12/13/17 12/13/17 06:30 06:30 09:15 WBC 21.1 H RBC 3.27 L Hgb 7.7 L Hct 24.3 L MCV 74.3 L MCH 23.5 L MCHC 31.7 RDW 23.3 H Plt Count 323 MPV 9.5 Gran % 85.3 H Lymph % (Auto) 8.1 L Overton % (Auto) 6.2 H Eos % (Auto) 0.2 L Baso % (Auto) 0.2 Gran # 18.01 H Lymph # (Auto) 1.7 Overton # (Auto) 1.3 H Eos # (Auto) 0.1 Baso # (Auto) 0.05 Sodium 151 H Potassium 3.2 L Chloride 112 H Carbon Dioxide 28 Anion Gap 14 BUN 39 H Creatinine 1.0 Est GFR ( Amer) > 60 Est GFR (Non-Af Amer) > 60 Random Glucose 90 Calcium 8.4 Total Bilirubin 1.2 AST 55 ALT 49 Alkaline Phosphatase 171 H Total Protein 6.2 Albumin 3.2 Globulin 2.9 Albumin/Globulin Ratio 1.1 Blood Type B POSITIVE Antibody Screen Negative BBK History Checked Patient has bt Assessment & Plan - Assessment and Plan (Free Text) Assessment: 87 yo male with left heel non infected and pressure ulcer, Right heel eschar. Plan: Patient seen and evaluated Plan discussed in detail with the attending, Dr Hewitt Chart, labs and vitals reviewed; Afebrile WBC 21.1. X-ray of bilateral feet ordered Arterial duplex of the lower extremity ordered Patients left foot dressed with gauze, ABD pads and kerlix. Right with optifoam. Patient to remain in multipodus boots at all times Podiatry will follow while in house Thank you for the consult. <Judith Hewitt - Last Filed: 12/23/17 18:50> Results - Vital Signs Recent Vital Signs: Last Vital Signs Temp 97.8 F 12/21/17 06:00 Pulse 90 12/21/17 06:00 Resp 20 12/21/17 06:00 BP 150/80 12/21/17 11:00 Pulse Ox 94 L 12/21/17 06:00 - Labs Result Diagrams: 12/19/17 06:30 12/19/17 06:30 Attending/Attestation - Attestation I have personally seen and examined this patient.: Yes I have fully participated in the care of the patient.: Yes I have reviewed all pertinent clinical information: Yes
--- NOTE | 2017-12-13 14:28 | RAD ---
PROCEDURE: Right Foot Radiographs. HISTORY: right heel wound COMPARISON: 11/20/2017. Left foot radiographs FINDINGS: BONES: Soft tissue swelling and ulcer adjacent to the calcaneus without evidence of acute osteomyelitis. Similar findings identified on the prior study. JOINTS: Normal. SOFT TISSUES: No significant interval change compared to the prior examination(s). OTHER FINDINGS: None. IMPRESSION: Soft tissue findings about the plantar aspect of the foot and posteriorly -calcaneal region without osteomyelitis.
--- NOTE | 2017-12-13 14:30 | RAD ---
PROCEDURE: Left Foot Radiographs. HISTORY: Left heel wound COMPARISON: December 13, 2017. FINDINGS: BONES: Diffuse osteopenia. No acute osseous abnormalities. JOINTS: Multiple hammertoe deformities. SOFT TISSUES: Soft tissue ulcer adjacent to the calcaneus without evidence of acute osteomyelitis. OTHER FINDINGS: None. IMPRESSION: No acute osseous abnormalities.
--- NOTE | 2017-12-13 15:27 | PN ---
DATE: 12/13/2017 SUBJECTIVE: The patient is seen earlier this morning in room 568, bed 2. The patient's nurse states that the patient's diarrhea has improved. There is no fevers and no chills. He is chronically ill, debilitated. PHYSICAL EXAMINATION VITAL SIGNS: The patient's temperature is 99, blood pressure is 109/40, respiratory rate of 20, heart rate of 92. The patient is 94% saturation. HEENT: Unremarkable. NECK: Supple. LUNGS: Have decreased breath sounds. HEART: Normal S1 and S2. ABDOMEN: Soft, nontender. LABORATORY DATA: Reveals a white count of 21,000, hemoglobin of 7 and platelets of 323. Coagulation is noted. Chemistries reveals a BUN of 39, creatinine of 1, procalcitonin is 1.72. Urinalysis is noted and 5-10 wbc's. Microbiology reveals the blood cultures are no growth. Urine culture has yeast. Another blood culture has no growth. The stool for C. diff antigen and toxin are both positive. Review of orders reveals the patient to be on IV Flagyl and p.o. vancomycin. ASSESSMENT AND PLAN: An 87-year-old male who was seen earlier today in room 568, bed 2 with a history of chronic obstructive pulmonary disease, congestive heart failure, dementia, cataracts, hypertension, transient ischemic attack, osteoarthritis, ascending colitis, necrotizing fasciitis of the left gluteal area, put a percutaneous endoscopic gastrostomy tube and history of Clostridium difficile, now admitted with severe sepsis secondary to pseudomembranous colitis and stage IV decubitus ulcer, on IV Flagyl and p.o. vancomycin. Once the diarrhea has resolved, may just complete with p.o. vancomycin. We will follow the WBC. Overall, prognosis is quite poor for this end-stage 87-year-old. Should consider a hospice setting. Virgil Zayas MD
[2017-12-14] MEDS: Albuterol-Ipratrop 3 mg / 0.5 (3 ml) UD IH SCH ×4 (03:15→19:32)
[2017-12-14] MEDS: metroNIDAZOLE IV 500 mg/100 ml 500 MG/100 ML BAG IVPB SCH ×4 (05:05→23:55)
[2017-12-14 05:28] LABS: BASO # 0.08 K/mm3 (0.0-2.0); BASO % 0.4 % (0.0-3.0); EOS % 0.1 % (1.5-5.0); GRAN # 19.44 (1.4-6.5); LYMPH # 1.5 (1.2-3.4); LYMPH % 6.6 % (22.0-35.0); MEAN CELL VOLUME 74.9 fl (80.0-105.0); MEAN CORPUSCULAR HEMOGLOBIN 24.1 pg (25.0-35.0); MEAN CORPUSCULAR HGB CONC 32.2 g/dl (31.0-37.0); MEAN PLATELET VOLUME 9.4 fl (7.0-11.0); MONO # 1.1 (0.1-0.6); MONO % 4.9 % (1.0-6.0); RBC 4.02 10^6/uL (3.5-6.1); RED CELL DISTRIBUTION WIDTH 21.6 % (11.5-14.5); WHITE BLOOD COUNT 22.1 10^3/ul (4.5-11.0)
[2017-12-14 05:29] LABS: HEMOGLOBIN 9.7 g/dL (14.0-18.0)
--- NOTE | 2017-12-14 08:02 | CP.PCM.PN ---
<Ilya Webber - Last Filed: 12/14/17 14:15> Subjective - Date & Time of Evaluation Date of Evaluation: 12/14/17 Time of Evaluation: 11:00 - Subjective Subjective: GI Progress Note for Dr. Teodoro Webber, PGY-3 Patient seen and examined at bedside. Was transfused 1 unit pRBCs yesterday for Hgb 7.7 as per pt's PMD, but remains very lethargic and sedate today. Only would answer questions about vomiting and abdominal pain, shook head no to both , but visibly winces when palpating RUQ region. Objective - Vital Signs/Intake and Output Vital Signs (last 24 hours): Temp Pulse Resp BP Pulse Ox 97.5 F L 93 H 20 158/84 H 99 12/13/17 22:00 12/13/17 22:00 12/13/17 22:00 12/13/17 22:00 12/13/17 22:00 Intake and Output: 12/14/17 12/14/17 06:59 18:59 Intake Total 405 Output Total 200 Balance 205 - Medications Medications: Current Medications Albuterol/Ipratropium (Duoneb 3 Mg/0.5 Mg (3 Ml) Ud) 3 ml IH [id number] [facility] Last Admin: 12/14/17 07:08 Dose: 3 ml Collagenase (Santyl) 1 gm TOP BID [facility] Last Admin: 12/13/17 10:42 Dose: 1 applic Enoxaparin Sodium (Lovenox) 30 mg SC DAILY [facility] PRN Reason: Protocol Last Admin: 12/13/17 10:42 Dose: 30 mg Metronidazole (Flagyl) 500 mg in 100 mls @ 100 mls/hr IVPB Q8 [facility] PRN Reason: Protocol Stop: 12/20/17 19:03 Last Admin: 12/14/17 05:05 Dose: 100 mls/hr Dextrose (Dextrose 5% In Water 1000 Ml) 1,000 mls @ 75 mls/hr IV .[id number] [facility] Last Admin: 12/13/17 10:36 Dose: 75 mls/hr Metoprolol Tartrate (Lopressor) 50 mg GT BID [facility] Last Admin: 12/13/17 17:32 Dose: 50 mg Pantoprazole Sodium (Protonix Inj) 20 mg IVP DAILY [facility] Last Admin: 12/13/17 10:00 Dose: 20 mg Vancomycin HCl (Vancocin 25 Mg/Ml (Oral Use)) 250 mg PO QID [facility] PRN Reason: Protocol Stop: 12/20/17 19:04 Last Admin: 12/13/17 21:34 Dose: 250 mg - Labs Labs: 12/14/17 05:00 12/13/17 06:30 PT 16.4 SECONDS (9.4-12.5) H 12/11/17 10:00 INR 1.42 (0.93-1.08) H 12/11/17 10:00 APTT 30.3 Seconds (25.1-36.5) 12/11/17 10:00 - Additional Findings Additional findings: - Constitutional Appears: Non-toxic, No Acute Distress, Chronically Ill, Lethargic/somnolent - Head Exam Head Exam: ATRAUMATIC, NORMAL INSPECTION, NORMOCEPHALIC - Eye Exam Eye Exam: Normal appearance. absent: Conjunctival injection, Scleral icterus, EOMI (not following commands for EOMI, minimally tracking before returning to somnolent state, so unable to fully assess) Pupil Exam: absent: Fixed, Irregular - ENT Exam ENT Exam: Mucous Membranes Dry - Neck Exam Neck exam: Positive for: Normal Inspection. Negative for: Lymphadenopathy, Thyromegaly - Respiratory Exam Respiratory Exam: Mildly Decreased Breath Sounds otherwise CTAB, NORMAL BREATHING PATTERN. absent: Accessory Muscle Use, Prolonged Expiratory Phase, Rales, Rhonchi, Wheezes, Respiratory Distress, Stridor - Cardiovascular Exam Cardiovascular Exam: REGULAR RHYTHM, RRR, +S1, +S2. absent: Bradycardia, Tachycardia, Irregular Rhythm, JVD - GI/Abdominal Exam GI & Abdominal Exam: Normal Bowel Sounds, Freely mobile PEG tube, RUQ tenderness to palpation (reacts to palpation at this site). absent: Diminished Bowel Sounds, Distended, Firm, Guarding, Hyperactive Bowel Sounds, Hypoactive Bowel Sounds Additional comments: PEG tube in place, no appreciable surrounding erythema or induration, not warm to touch, no acute reaction to deep palpation, no bloody or purulent discharge from the tube or surrounding area appreciated - Extremities Exam Extremities exam: Positive for: normal inspection, pedal pulses present. Negative for: calf tenderness, joint swelling, pedal edema, tenderness - Neurological Exam Somnolent/lethargic, arousable but rapidly returns to somnolence, not following most commands, minimal spontaneous movements - Psychiatric Exam demented, non-verbal today, only responding with head nodding/shaking - Skin Skin Exam: Dry, Intact, Normal Color, Warm Assessment and Plan - Assessment and Plan (Free Text) Assessment: This is an 87 yo M with PMH of CHF, CVA, COPD, dementia, HTN, CKD, hx of PEG tube, and hx of hydropneumothorax who was brought in by ambulance from [facility]) due to fever since yesterday. He was being treated for C diff infectious at the [place], and GI is being consulted for the C Diff infection + Peg tube/abd tenderness. He has also been found to have enlarged GB with cholelithiasis present, concerning for acute cholecystitis. Plan: Dementia, possible hypoactive delirium overlying vs AMS 2/2 infectious process Hx CVA, COPD, HTN Hx PEG tube, reported abd tenderness at PEG-site Sepsis 2/2 UTI vs C diff, possibly another source causing infection due to persistence of > 20 WBCs despite abx regimen Cholelithiasis -Flagyl IV and Vanco PO as per ID -Stool C Diff positive for antigen and toxin; however, as patient retains elevated WBCs and has worsening AMS, concern for possible other infectious source (GB given possible cholecystitis vs sacral wound vs PNA vs UTI), blood cx negative at 3 days, urine cx positive for yeast -Seen by Paliative service, full code as per family (per Palliative's note, family not present during exam) -Starting tube feeds to prevent malnutrition, continue NPO due to AMS, high risk for aspiration -on D5 W as per Nephro due to hypernatremia, reports dehydrated due to losses from diarrhea likely greater than gains from IV fluids, continue ICF -No report from [facility] of unable to flush PEG, appears to still be patent, no appreciable tenderness or abnormality on exam, freely mobile peg on exam -CT abd/pelvis notable Bibasilar consolidation at lung base, Gallstones with distension/wall thickening concerning for cholecystitis. -Surgery, ID, Nephro, and Podiatry following, appreciate their insights Pt seen, reviewed, and discussed with attending, Dr Valerio <Seth Valerio V - Last Filed: 12/14/17 22:20> Objective - Vital Signs/Intake and Output Vital Signs (last 24 hours): Temp Pulse Resp BP Pulse Ox 98.2 F 90 20 166/101 H 100 12/14/17 14:00 12/14/17 14:00 12/14/17 14:00 12/14/17 14:00 12/14/17 14:00 - Medications Medications: Current Medications Albuterol/Ipratropium (Duoneb 3 Mg/0.5 Mg (3 Ml) Ud) 3 ml IH [id number] [facility] Last Admin: 12/14/17 19:32 Dose: 3 ml Collagenase (Santyl) 1 gm TOP BID [facility] Last Admin: 12/14/17 18:58 Dose: 1 applic Enoxaparin Sodium (Lovenox) 30 mg SC DAILY [facility] PRN Reason: Protocol Last Admin: 12/14/17 11:18 Dose: 30 mg Metronidazole (Flagyl) 500 mg in 100 mls @ 100 mls/hr IVPB Q8 [facility] PRN Reason: Protocol Stop: 12/20/17 19:03 Last Admin: 12/14/17 14:20 Dose: 100 mls/hr Dextrose (Dextrose 5% In Water 1000 Ml) 1,000 mls @ 100 mls/hr IV .Q10H [facility] Last Admin: 12/14/17 14:19 Dose: 100 mls/hr Cefepime HCl (Maxipime 1gm) 1 gm in 100 mls @ 100 mls/hr IVPB Q12 [facility] PRN Reason: Protocol Stop: 12/22/17 22:01 Losartan Potassium (Cozaar) 50 mg GT QPM [facility] Last Admin: 12/14/17 18:57 Dose: 50 mg Metoprolol Tartrate (Lopressor) 50 mg GT BID [facility] Last Admin: 12/14/17 18:57 Dose: 50 mg Pantoprazole Sodium (Protonix Inj) 20 mg IVP DAILY [facility] Last Admin: 12/14/17 11:18 Dose: 20 mg Vancomycin HCl (Vancocin 25 Mg/Ml (Oral Use)) 250 mg PO QID [facility] PRN Reason: Protocol Stop: 12/20/17 19:04 Last Admin: 12/14/17 18:58 Dose: 250 mg - Labs Labs: 12/14/17 05:00 12/14/17 11:15 PT 16.4 SECONDS (9.4-12.5) H 12/11/17 10:00 INR 1.42 (0.93-1.08) H 12/11/17 10:00 APTT 30.3 Seconds (25.1-36.5) 12/11/17 10:00 Attending/Attestation - Attestation I have personally seen and examined this patient.: Yes I have fully participated in the care of the patient.: Yes I have reviewed all pertinent clinical information, including history, physical exam and plan: Yes Notes (Text): This is an addendum to GI progress report dictated by the [employer].The patient was seen and examined earlier. Medical records, lab studies, imagings were reviewed. Last 24 hours events reviewed. Agreed with the above treatment plan as outlined in [employer] 's notes the with the addition of the following this patient still has some tenderness in the right uppr quadrant area Patient has gallstones and mild thickening of the gallbladder which could be due to edema but in view of more localized tenderness in the RUQ area we would consider ordering a HIDA scan Patient has decubitus ulcer and also atelectasis vs infiltrate of lung base Maxipime has been ordered by ID already We'll follow HIDA scan Discussed with the patient family earlier today 12/14/17 22:15
--- NOTE | 2017-12-14 08:33 | PN ---
DATE: 12/12/2017 SUBJECTIVE: The patient is in bed, in no acute distress, was seen early this morning in room 568, bed 2. Uneventful night. The patient's temperature is in the downward trend. PHYSICAL EXAMINATION: VITAL SIGNS: Temperature of 98, blood pressure is 109/40, respiratory rate of 20. HEENT: Examination of HEENT is unremarkable. NECK: Supple. LUNGS: Have decreased breath sounds. HEART: Normal S1 and S2. ABDOMEN: Soft, nontender. LABORATORY DATA: Laboratory examination reveals a white count of 25,000, hemoglobin of 8, platelets of 350. BUN of 53, creatinine of 1.1. Procalcitonin is 1.72. Urinalysis is noted. Microbiology reveals yeast in the urine. The blood cultures are negative x24 hours. Stool for C. diff antigen and toxin are both positive. Review of orders reveals the patient to be on IV Flagyl and p.o. vancomycin. The patient also had an ultrasound. ASSESSMENT AND PLAN: This is an 87-year-old male who was seen early this morning in 568, bed 2, who was admitted with severe sepsis secondary to pseudomembranous colitis, stage IV decubitus ulcer. Currently, on IV Flagyl and p.o. vancomycin. The diarrhea is resolved and complete therapy with p.o. vancomycin x14 days in this patient who does have chronic obstructive lung disease, congestive heart failure, dementia, cataract, hypertension, transient ischemic attack, left gluteal necrotizing fascitis, acute kidney injury. We will check on the WBC. Virgil Zayas MD
--- NOTE | 2017-12-14 08:49 | CP.PCM.PN ---
Subjective - Date & Time of Evaluation Date of Evaluation: 12/14/17 Time of Evaluation: 08:47 - Subjective Subjective: General Surgery Progress Note for Dr. Vizcaino Patient seen and examined at bedside this am. No acute events overnight. Patient still somnolent this am. Patient responds to some yes/no questions and some basic commands. Patient shakes head when asked if he has pain, however nods yes upon palpation on physical exam. Objective - Vital Signs/Intake and Output Vital Signs (last 24 hours): Temp Pulse Resp BP Pulse Ox 98.2 F 89 20 154/88 H 95 12/14/17 06:00 12/14/17 06:00 12/14/17 06:00 12/14/17 06:00 12/14/17 06:00 Intake and Output: 12/14/17 12/14/17 06:59 18:59 Intake Total 405 Output Total 200 Balance 205 - Medications Medications: Current Medications Albuterol/Ipratropium (Duoneb 3 Mg/0.5 Mg (3 Ml) Ud) 3 ml IH [id number] [facility] Last Admin: 12/14/17 07:08 Dose: 3 ml Collagenase (Santyl) 1 gm TOP BID [facility] Last Admin: 12/13/17 10:42 Dose: 1 applic Enoxaparin Sodium (Lovenox) 30 mg SC DAILY [facility] PRN Reason: Protocol Last Admin: 12/13/17 10:42 Dose: 30 mg Metronidazole (Flagyl) 500 mg in 100 mls @ 100 mls/hr IVPB Q8 [facility] PRN Reason: Protocol Stop: 12/20/17 19:03 Last Admin: 12/14/17 05:05 Dose: 100 mls/hr Dextrose (Dextrose 5% In Water 1000 Ml) 1,000 mls @ 75 mls/hr IV .[id number] [facility] Last Admin: 12/13/17 10:36 Dose: 75 mls/hr Metoprolol Tartrate (Lopressor) 50 mg GT BID [facility] Last Admin: 12/13/17 17:32 Dose: 50 mg Pantoprazole Sodium (Protonix Inj) 20 mg IVP DAILY [facility] Last Admin: 12/13/17 10:00 Dose: 20 mg Vancomycin HCl (Vancocin 25 Mg/Ml (Oral Use)) 250 mg PO QID [facility] PRN Reason: Protocol Stop: 07/11/18 19:04 Last Admin: 12/13/17 21:34 Dose: 250 mg - Labs Labs: 12/14/17 05:00 12/13/17 06:30 PT 16.4 SECONDS (9.4-12.5) H 12/11/17 10:00 INR 1.42 (0.93-1.08) H 12/11/17 10:00 APTT 30.3 Seconds (25.1-36.5) 12/11/17 10:00 - Constitutional Appears: Well, Non-toxic, Chronically Ill - Head Exam Head Exam: ATRAUMATIC, NORMAL INSPECTION, NORMOCEPHALIC - Eye Exam Eye Exam: Normal appearance - ENT Exam ENT Exam: Mucous Membranes Dry - Respiratory Exam Respiratory Exam: absent: Accessory Muscle Use, Rales, Rhonchi - Cardiovascular Exam Cardiovascular Exam: Tachycardia, REGULAR RHYTHM, +S1, +S2 - GI/Abdominal Exam GI & Abdominal Exam: Distended, Soft, Tenderness (tender to deep palpation in all 4 quadrants), Hypoactive Bowel Sounds Additional comments: Gastrostomy tube in place. No surrounding erythema noted. - Extremities Exam Additional comments: Unstageable L heel decubitus ulcer with tenderness to palpation and surrounding erythema. Discoloration and ecchymosis of R heel concerning for deep tissue injury, no crepitus, fluctuance or erythema noted. - Back Exam Back Exam: absent: CVA tenderness (L), CVA tenderness (R) - Neurological Exam Neurological Exam: Awake - Psychiatric Exam Psychiatric exam: Flat Affect - Skin Additional comments: 15cm x 10cm x 1 cm stage 4 decubitus ulcer with 2cm of undermining in L Lateral and Superior borders. No surrounding crepitus, erythema, or fluctuance noted. Some areas of exudate present at base. No expressible drainage. Assessment and Plan - Assessment and Plan (Free Text) Assessment: 87 y/o male with sepsis and sacral decubitus ulcer and r/o cholecystitis Plan: - Sacral decubitus ulcer not the source of infection. Continue Santyl bid for stage 4 ulcer - Continue antibiotics per ID recs - f/u GI recs regarding possible HIDA scan/cholecystostomy tube - F/u urine and blood cultures - f/u podiatry recommendations - air mattress, turn q 2 hours - Continue antihypertensive Laurence Nash DO PGY1
--- NOTE | 2017-12-14 11:07 | CP.PCM.PN ---
<Mary Chaves - Last Filed: 12/14/17 11:08> Subjective - Date & Time of Evaluation Date of Evaluation: 12/14/17 Time of Evaluation: 11:06 - Subjective Subjective: 87 y/o male seen and examined at bedside with attending Dr. Hewitt. Pt is of altered mental status and cannot give true HPI. Multipodus boots in place to bilateral lower extremities. Pt nods yes when asked if he has pain in the lower extremities. Pt remains lethargic. Objective - Vital Signs/Intake and Output Vital Signs (last 24 hours): Temp Pulse Resp BP Pulse Ox 98.2 F 89 20 154/88 H 95 12/14/17 06:00 12/14/17 06:00 12/14/17 06:00 12/14/17 06:00 12/14/17 06:00 Intake and Output: 12/14/17 12/14/17 06:59 18:59 Intake Total 405 Output Total 200 Balance 205 - Medications Medications: Current Medications Albuterol/Ipratropium (Duoneb 3 Mg/0.5 Mg (3 Ml) Ud) 3 ml IH [id number] [facility] Last Admin: 12/14/17 07:08 Dose: 3 ml Collagenase (Santyl) 1 gm TOP BID [facility] Last Admin: 12/13/17 10:42 Dose: 1 applic Enoxaparin Sodium (Lovenox) 30 mg SC DAILY [facility] PRN Reason: Protocol Last Admin: 12/13/17 10:42 Dose: 30 mg Metronidazole (Flagyl) 500 mg in 100 mls @ 100 mls/hr IVPB Q8 [facility] PRN Reason: Protocol Stop: 12/20/17 19:03 Last Admin: 12/14/17 05:05 Dose: 100 mls/hr Dextrose (Dextrose 5% In Water 1000 Ml) 1,000 mls @ 75 mls/hr IV .[id number] [facility] Last Admin: 12/13/17 10:36 Dose: 75 mls/hr Metoprolol Tartrate (Lopressor) 50 mg GT BID [facility] Last Admin: 12/13/17 17:32 Dose: 50 mg Pantoprazole Sodium (Protonix Inj) 20 mg IVP DAILY [facility] Last Admin: 12/13/17 10:00 Dose: 20 mg Vancomycin HCl (Vancocin 25 Mg/Ml (Oral Use)) 250 mg PO QID [facility] PRN Reason: Protocol Stop: 12/20/17 19:04 Last Admin: 12/13/17 21:34 Dose: 250 mg - Labs Labs: 12/14/17 05:00 12/13/17 06:30 PT 16.4 SECONDS (9.4-12.5) H 12/11/17 10:00 INR 1.42 (0.93-1.08) H 12/11/17 10:00 APTT 30.3 Seconds (25.1-36.5) 12/11/17 10:00 - Constitutional Appears: Well, Non-toxic, No Acute Distress - Extremities Exam Additional comments: Bilateral lower extremity exam: Multipodus boots in place to B/L lower extremities Vascular: DP/PT pulses are non palpable, CFT <3 secs x10, TG warm to warm, pedal hair is absent, no edema or erythema noted. Derm: Left: heel wound noted plantar and posterior aspect of the heel, measuring approximately 5.5 cm x 3.0 cm. 100% necrotic base, no draining, no malodor, no probe to bone, no purulence, no tracking or tunneling noted, no clinical signs of infection Right: superficial necrotic eschar noted on the plantar medial aspect of the heel. no open lesions noted. no fluctuance, no clinical signs of infection. Neuro: protective sensation grossly intact Ortho: mild-moderate pain on palpation to the wound. - Neurological Exam Neurological Exam: Alert, Awake - Psychiatric Exam Psychiatric exam: Normal Affect, Normal Mood Assessment and Plan - Assessment and Plan (Free Text) Assessment: 87 y/o male with 1) left posteroplantar heel ulceration secondary to pressure and 2) right heel deep tissue injury secondary to pressure Plan: Pt seen and evaluated at bedside with attending Dr. Hewitt X-rays of bilateral heels negative for OM or any acute osseous changes L heel dressed with betadine and Optifoam bandage; R heel with Optifoam bandage for protection Continue Multipodus boots at all times in bed Heels not likely source of infection at this time as wounds do not appear clinically infected Continue IV abx Will continue to follow patient and perform local wound care <Judith Hewitt - Last Filed: 12/23/17 18:53> Objective - Vital Signs/Intake and Output Vital Signs (last 24 hours): Temp Pulse Resp BP Pulse Ox 97.8 F 90 20 150/80 94 L 12/21/17 06:00 12/21/17 06:00 12/21/17 06:00 12/21/17 11:00 12/21/17 06:00 - Labs Labs: 12/19/17 06:30 12/19/17 06:30 PT 16.4 SECONDS (9.4-12.5) H 12/11/17 10:00 INR 1.42 (0.93-1.08) H 12/11/17 10:00 APTT 30.3 Seconds (25.1-36.5) 12/11/17 10:00 Attending/Attestation - Attestation I have personally seen and examined this patient.: Yes I have fully participated in the care of the patient.: Yes I have reviewed all pertinent clinical information, including history, physical exam and plan: Yes
[2017-12-14] MEDS: Enoxaparin 30 mg Syringe SC SCH (11:18)
[2017-12-14] MEDS: Vancomycin 25 MG/ML PO SCH ×6 (11:18→23:55)
[2017-12-14] MEDS: Collagenase 250 Units/gm Ointment(30 gm) TOP SCH ×2 (11:18→18:58)
[2017-12-14 11:41] LABS: ALB/GLOB RATIO 1.1 (1.1-1.8); ALBUMIN 3.3 g/dL (3.0-4.8); ALT/SGPT 36 U/L (7-56); AST/SGOT 34 U/L (17-59); BLOOD UREA NITROGEN 29 mg/dL (7-21); CALCIUM 8.7 mg/dL (8.4-10.5); GFR AFRICAN-AMERICAN > 60; GFR NON-AFRICAN AMERICAN > 60
[2017-12-14] MEDS ORDERED: Potassium Chloride 40 mEq/30 ml LIQ UD GT ONE (11:43)
--- NOTE | 2017-12-14 13:34 | CP.PCM.PN ---
Subjective - Date & Time of Evaluation Date of Evaluation: 12/14/17 Time of Evaluation: 13:32 - Subjective Subjective: Nephrology Consultation Note: Assessment: Stable Fever with C diff diarrhoea Acute Kidney Injury (N17.9) likely due to pre-renal state Hypokalemia, hypernatremia Hypoalbuminemia, pleural effusion, malnourished state (BMI 14.6 and hypoalbuminemia) COPD, TIA/CVA, hx of peg tube, sacral decubitus ulcer, CHF, dementia, hypertension, ADIEL and C diff Anemia Plan No acute need for renal replacement therapy at this time. renal function stable Hypertension control with meds as ordered. resume losartan 50 mg/day Monitor Input/Output, daily weights and renal function with basic metabolic panel continue with IVF but as D5W @ 100 ml/hr due to hypernatremia. pt started on tube feeds today with water flush 200 ml every 4-6 hrs. would be able to stop IVF once hypernatremia better GI, surgery following supplements lytes as needed Dose meds/antibiotics for improved GFR. Avoid nephrotoxins/NSAIDs Glycemic control Further work up/management as per primary team Thanks for allowing me to participate in care of your patient. Will follow patient with you. Please call if any Qs. had d/w team Dr Wilmar Garrison Office: [phone] Chief Complaint; unable HPI: Pt is a 87 M with hx of COPD, TIA/CVA, hx of peg tube, sacral decubitus ulcer, CHF, dementia, hypertension, ADIEL and C diff presented with complaints of fever from [place] and being worked up. renal consult for ADIEL no known OTC/herbal meds or NSAIDs No recent iodinated contrast exposure. Noted episodes of low BP (101/57). ROS: unable to obtain from pt Physical Examination: General Appearance: frail elderly male malnourished, in no acute respiratory distress, ill appearing Vitals reviewed and noted as below Head; Atraumatic, normocephalic ENT: no ulcers no thrush. Tongue is midline/dry . Oropharynx: no rash EYES: Pupils are equal, round and reactive to light accommodation. Eye muscles and extraocular movement intact. Sclera is anicteric. Neck; supple no lymphadenopathy, no thyromegaly or bruit Lungs: Normal respiratory rate/effort. Breath sounds bilateral equal and clear anteriorly Heart: Normal rate. s1s2 normal. No rub or gallop. Extremities: no edema. No varicose veins Neurological: Patient is alert, awake and dementia Skin: Warm and dry. Normal turgor. No rash. Palpitation: Normal elasticity for age Abdomen: Abdomen is soft. Bowel sounds +. There is mild abdominal tenderness, no guarding/rigidity no organomegaly. has PEG tube Psych: unable MSK: no joint tenderness or swelling. Digits and nails normal, no deformity : kidney or bladder not palpable Labs/imaging reviewed. Past medical history, past surgical history, family history, social history, allergy reviewed and noted as below Family hx: no hx of CKD. Rest non-contributory renal imaing WNL UA 100 protein and trace ketone Objective - Vital Signs/Intake and Output Vital Signs (last 24 hours): Temp Pulse Resp BP Pulse Ox 98.2 F 89 20 154/88 H 95 12/14/17 06:00 12/14/17 06:00 12/14/17 06:00 12/14/17 06:00 12/14/17 06:00 Intake and Output: 12/14/17 12/14/17 06:59 18:59 Intake Total 405 Output Total 200 Balance 205 - Medications Medications: Current Medications Albuterol/Ipratropium (Duoneb 3 Mg/0.5 Mg (3 Ml) Ud) 3 ml IH [id number] [facility] Last Admin: 12/14/17 13:16 Dose: 3 ml Collagenase (Santyl) 1 gm TOP BID [facility] Last Admin: 12/14/17 11:18 Dose: 1 applic Enoxaparin Sodium (Lovenox) 30 mg SC DAILY [facility] PRN Reason: Protocol Last Admin: 12/14/17 11:18 Dose: 30 mg Metronidazole (Flagyl) 500 mg in 100 mls @ 100 mls/hr IVPB Q8 [facility] PRN Reason: Protocol Stop: 12/20/17 19:03 Last Admin: 12/14/17 05:05 Dose: 100 mls/hr Dextrose (Dextrose 5% In Water 1000 Ml) 1,000 mls @ 100 mls/hr IV .Q10H [facility] Metoprolol Tartrate (Lopressor) 50 mg GT BID [facility] Last Admin: 12/14/17 11:18 Dose: 50 mg Pantoprazole Sodium (Protonix Inj) 20 mg IVP DAILY [facility] Last Admin: 12/14/17 11:18 Dose: 20 mg Potassium Chloride (Potassium Chloride Oral Soln) 40 meq GT ONCE ONE Stop: 12/14/17 11:44 Vancomycin HCl (Vancocin 25 Mg/Ml (Oral Use)) 250 mg PO QID [facility] PRN Reason: Protocol Stop: 12/20/17 19:04 Last Admin: 12/14/17 11:18 Dose: 250 mg - Labs Labs: 12/14/17 05:00 12/14/17 11:15 PT 16.4 SECONDS (9.4-12.5) H 12/11/17 10:00 INR 1.42 (0.93-1.08) H 12/11/17 10:00 APTT 30.3 Seconds (25.1-36.5) 12/11/17 10:00
--- NOTE | 2017-12-14 15:27 | PN ---
DATE: 12/13/2017 SUBJECTIVE: The patient is seen in the bed, comfortable, responds to calling his name. He denied any pain. No chest pain, no abdominal pain, no headaches. Otherwise, no new nausea or vomiting reported and the patient seems better. PHYSICAL EXAMINATION: VITAL SIGNS: Temperature 98.2, heart rate 100, blood pressure 150/76, respirations 20 and has 96% saturation. HEAD AND NECK: Normal. No JVD. No thyromegaly. CHEST: Clear bilaterally. CARDIAC: First sound and second sound normal. ABDOMEN: Soft, seems nontender compared . Bowel sounds intact. EXTREMITIES: No edema. He is having residual left-side weakness. NEUROLOGIC: He is awake, alert, but poorly expressive. Does not seem to be in pain. Moves upper hands. DATA: Laboratory study of 12/13/2017 shows white count 21.1, is down; hemoglobin 7.7; hematocrit 24.3; platelets 323. Chemistry shows sodium 151, potassium 3.2, chloride 112, bicarb 28, BUN 30, creatinine 1. Liver function test is normal except alkaline phosphatase 171 which is coming down. IMPRESSION AND PLAN: 1. Sepsis. Continue current therapy. He seems doing well. High procalcitonin. Probably Clostridium difficile, questionable gallbladder stone-related obstruction does not seem. Abdomen soft and nontender. Continue vancomycin. We will give a call to the ID and GI for consultations. 2. Chronic obstructive pulmonary disease, continue DuoNeb. 3. Hypertension, stable. 4. Hypernatremia. Discussed with Dr. Urban, who switched the IV fluid to D5 and monitor his sodium. Plan to continue current therapy. 5. Stage IV decubitus. Continue local wound care plus collagenase or Santyl. CURRENT MEDICATIONS: Now, the patient is given D5 75 mL per hour, DuoNeb, Flagyl, Lopressor, Protonix. Local wound care by surgical team, collagenase or Santyl. Flagyl p.o. 500 every 8 hours with vancomycin 250 p.o. four times a day, Lovenox 30 mg subcu daily and metoprolol 50 mg b.i.d. Continue current therapy. The patient is full code. We will continue current treatment. NG tube feeding, continue and follow up clinically. Cody Aguilar MD [facility] # [id number]
--- NOTE | 2017-12-14 15:32 | PN ---
DATE: 12/12/2017 SUBJECTIVE: The patient lying in the bed. He is more alert, in no distress. No nausea, no vomiting. Still n.p.o. The patient is seen by surgical team, Dr. Morgan Vizcaino, for sacral decubitus and abdominal discomfort. PHYSICAL EXAMINATION: VITAL SIGNS: Temperature 98, heart rate 92, blood pressure 135/39, respirations 20, sat 96% on room air. HEAD AND NECK: Normal. No JVD, no thyromegaly. CHEST: Diminished, clear. CARDIAC: First sound and second sound is normal. No murmur. ABDOMEN: Soft. There is tenderness in the right side of the abdomen. EXTREMITIES: No edema. NEUROLOGICAL: The patient has dysphagia with generalized weakness. LABORATORY DATA: CT abdomen as before mentioned, only gallstones, no other findings without evidence of any cholecystitis. Laboratory on 12/12/2017 shows white count 25.2, hemoglobin 8.3, hematocrit 26.5, platelets 351. His chemistry noted for sodium 144, potassium 3.3, chloride 108, bicarb 27, BUN 53, creatinine 1.1. Liver functions tests: Normal AST; normal ALT; alkaline phosphatase is 190, total protein 5.5; albumin 2.3, which is low. The patient also has procalcitonin 1.72, which is high consistent with sepsis. IMPRESSION AND PLAN: 1. Sepsis syndrome. The patient has Clostridium difficile colitis, sacral decubitus. Plan is to continue current IV antibiotics. We will follow up with Dr. Zayas. Continue current medications. Ultrasound of the gallbladder, there is large gallstone with possible mild gallbladder wall thickening, there was no positive ultrasound Gonzalez sign during exam. We will continue current management. We will discuss with Infectious Disease consultation and Dr. Valerio, GI consult. Continue Clostridium difficile treatment, p.o. vancomycin and we will see. We will follow up the patient clinically. 2. Large stage IV sacral decubitus, CT shows still large decubitus ulcer stage IV, gas in the wound and also left buttock area. Currently the patient getting collagenase or Santyl topically b.i.d. and local wound care by surgical team. Wound VAC has been used. 3. Hypertension, the patient getting Lopressor through the gastrostomy tube b.i.d. and we will monitor his blood pressure. 4. Renal insufficiency, seems better. Continue current therapy. Follow up clinically. 5. Cerebrovascular accident, dementia. At this time, we will hold off on medications. The patient is stable, not agitated, and seems doing well. Continue current treatment, electrolyte replacement, potassium was given and also the patient was given pneumococcal vaccination again. Continue current treatment. Cody Aguilar MD
--- NOTE | 2017-12-14 19:58 | PN ---
DATE: 12/14/2017 SUBJECTIVE: Eric Blancas is seen. The perirectal and thigh wounds are excellent, being treated with the wound VAC and will continue that. The issue at that time is the white count 22,000 consistent with C. diff. Abdominal ultrasound shows very dilated gallbladder. consultation with Mary Alvarez reported the CAT scan done several days ago showed no evidence of acute cholecystitis. Liver function had been elevated couple days ago, then resolved, slight elevation of alkaline phosphatase to 206 and bilirubin slightly up to 1.7. For now, watch expectantly. The physical exam is difficult to follow because of his mental status, but no obvious tenderness. Morgan Vizcaino MD
--- NOTE | 2017-12-14 21:57 | PN ---
DATE: 12/14/2017 SUBJECTIVE: The patient is in bed, in no acute distress, was seen earlier this morning. PHYSICAL EXAMINATION: VITAL SIGNS: Temperature is 98, blood pressure is 160/100, and respiratory rate of 20. HEENT: Unremarkable. NECK: Supple. LUNGS: Have decreased breath sounds. HEART: Normal S1 and S2. ABDOMEN: Soft and nontender. LABORATORY DATA: Reveals a white count of 22,000, hemoglobin of 9, BUN is 29, creatinine of 1. Procalcitonin is 1.7. Urinalysis is noted and stool for occult blood is negative and yeast in the urine. Blood culture is negative. Stool for C. diff is positive. ASSESSMENT AND PLAN: This is an 87-year-old male who was seen earlier today in room 568 with history of chronic obstructive lung disease, congestive heart failure, dementia, cataract, hypertension, transient ischemic attack, osteoarthritis, ascending colitis, necrotizing fascitis in left gluteal area, percutaneous endoscopic gastrostomy tube placement, now presenting with severe sepsis secondary to pseudomembranous colitis, stage IV decubitus ulcer, and acute cholecystis, on Flagyl IV and p.o. vancomycin. We will add Maxipime. Case discussed with Dr. Aguilar. Overall prognosis is quite poor, should be on hospice, supportive care. Virgil Zayas MD
[2017-12-14] MEDS: Cefepime 1gm in NS 100ml 1 GM/100 ML BAG IVPB SCH (22:31)
[2017-12-15] MEDS: Albuterol-Ipratrop 3 mg / 0.5 (3 ml) UD IH SCH ×4 (01:01→19:48)
[2017-12-15] MEDS: metroNIDAZOLE IV 500 mg/100 ml 500 MG/100 ML BAG IVPB SCH ×3 (06:33→22:04)
[2017-12-15 07:24] LABS: BASO # 0.06 K/mm3 (0.0-2.0); BASO % 0.2 % (0.0-3.0); EOS # 0.1 (0.0-0.7); EOS % 0.2 % (1.5-5.0); GRAN # 25.55 (1.4-6.5); GRAN % 90.3 % (50.0-68.0); LYMPH # 1.6 (1.2-3.4); LYMPH % 5.5 % (22.0-35.0); MEAN CELL VOLUME 74.3 fl (80.0-105.0); MEAN CORPUSCULAR HGB CONC 32.3 g/dl (31.0-37.0); MEAN PLATELET VOLUME 9.1 fl (7.0-11.0); MONO # 1.1 (0.1-0.6); MONO % 3.8 % (1.0-6.0); PLATELET COUNT 279 10^3/uL (120.0-450.0); RBC 4.17 10^6/uL (3.5-6.1); RED CELL DISTRIBUTION WIDTH 22.2 % (11.5-14.5)
[2017-12-15 07:31] LABS: WHITE BLOOD COUNT 28.3 10^3/ul (4.5-11.0)
[2017-12-15 07:44] LABS: ALBUMIN 2.9 g/dL (3.0-4.8); ALT/SGPT 29 U/L (7-56); AST/SGOT 27 U/L (17-59); BLOOD UREA NITROGEN 26 mg/dL (7-21); CALCIUM 8.3 mg/dL (8.4-10.5); GFR AFRICAN-AMERICAN > 60; GFR NON-AFRICAN AMERICAN > 60
[2017-12-15 08:55] LABS: ANISOCYTOSIS 1+; ATYPICAL LYMPHOCYTE 5 % (0.0-0.0); BAND 1 % (0-2); LYMPHOCYTE 7 % (22.0-35.0); MONOCYTE 0 % (1.0-6.0); NEUTROPHIL 87 % (50.0-70.0); PLATELET ESTIMATE NORMAL (NORMAL); POIKILOCYTOSIS SLIGHT
[2017-12-15 08:56] LABS: TARGET CELLS SLIGHT
--- NOTE | 2017-12-15 10:03 | CP.PCM.PN ---
Subjective - Date & Time of Evaluation Date of Evaluation: 12/15/17 Time of Evaluation: 09:56 - Subjective Subjective: General Surgery Progress Note for Dr. Vizcaino Patient seen and examined at bedside today. No acute events overnight. Pt still remains somnolent this am. Pt responds to some, but not all questions and commands. Patient shakes head denying pain, and groans upon deep abdominal palpation on physical exam. Objective - Vital Signs/Intake and Output Vital Signs (last 24 hours): Temp Pulse Resp BP Pulse Ox 98.7 F 100 H 18 158/90 H 97 12/15/17 06:00 12/15/17 06:00 12/15/17 06:00 12/15/17 06:00 12/15/17 06:00 Intake and Output: 12/15/17 12/15/17 06:59 18:59 Output Total 380 Balance -380 - Medications Medications: Current Medications Albuterol/Ipratropium (Duoneb 3 Mg/0.5 Mg (3 Ml) Ud) 3 ml IH [id number] [facility] Last Admin: 12/15/17 07:30 Dose: 3 ml Collagenase (Santyl) 1 gm TOP BID [facility] Last Admin: 12/14/17 18:58 Dose: 1 applic Enoxaparin Sodium (Lovenox) 30 mg SC DAILY [facility] PRN Reason: Protocol Last Admin: 12/14/17 11:18 Dose: 30 mg Metronidazole (Flagyl) 500 mg in 100 mls @ 100 mls/hr IVPB Q8 [facility] PRN Reason: Protocol Stop: 12/20/17 19:03 Last Admin: 12/15/17 06:33 Dose: 100 mls/hr Dextrose (Dextrose 5% In Water 1000 Ml) 1,000 mls @ 100 mls/hr IV .Q10H [facility] Last Admin: 12/15/17 06:37 Dose: 100 mls/hr Cefepime HCl (Maxipime 1gm) 1 gm in 100 mls @ 100 mls/hr IVPB Q12 [facility] PRN Reason: Protocol Stop: 12/22/17 22:01 Last Admin: 12/14/17 22:31 Dose: 100 mls/hr Losartan Potassium (Cozaar) 50 mg GT QPM [facility] Last Admin: 12/14/17 18:57 Dose: 50 mg Metoprolol Tartrate (Lopressor) 50 mg GT BID [facility] Last Admin: 12/14/17 18:57 Dose: 50 mg Pantoprazole Sodium (Protonix Inj) 20 mg IVP DAILY [facility] Last Admin: 12/14/17 11:18 Dose: 20 mg Vancomycin HCl (Vancocin 25 Mg/Ml (Oral Use)) 250 mg PO QID [facility] PRN Reason: Protocol Stop: 12/20/17 19:04 Last Admin: 12/14/17 23:55 Dose: Not Given - Labs Labs: 12/15/17 07:00 12/15/17 07:00 PT 16.4 SECONDS (9.4-12.5) H 12/11/17 10:00 INR 1.42 (0.93-1.08) H 12/11/17 10:00 APTT 30.3 Seconds (25.1-36.5) 12/11/17 10:00 - Constitutional Appears: Well, Non-toxic, Chronically Ill - Head Exam Head Exam: ATRAUMATIC, NORMAL INSPECTION, NORMOCEPHALIC - Respiratory Exam Respiratory Exam: NORMAL BREATHING PATTERN. absent: Rales, Rhonchi - Cardiovascular Exam Cardiovascular Exam: REGULAR RHYTHM, +S1, +S2 - GI/Abdominal Exam GI & Abdominal Exam: Distended, Tenderness, Hypoactive Bowel Sounds - Rectal Exam Rectal Exam: absent: Black Stool, Bloody Stool, Hemorrhoids - Extremities Exam Additional comments: Unstageable L heel decubitus ulcer with tenderness to palpation and surrounding erythema. Discoloration and ecchymosis of R heel concerning for deep tissue injury, no crepitus, fluctuance or erythema noted. - Back Exam Back Exam: absent: CVA tenderness (L), CVA tenderness (R) - Skin Additional comments: 15cm x 10cm x 1 cm stage 4 decubitus ulcer with 2cm of undermining in L Lateral and Superior borders. No surrounding crepitus, erythema, or fluctuance noted. Some areas of exudate present at base. No expressible drainage. Wound Vac in place Assessment and Plan - Assessment and Plan (Free Text) Assessment: 87 y/o M with sacral decubitus ulcer and r/o cholecystitis. Plan: - Sacral decubitus ulcer not the source of infection. - Wound Vac in place, will change in 3 days. D/C Santyl - f/u HIDA scan results - f/u GI recs - f/u IR for possible cholecystostomy tube - Continue antibiotics per ID recs - F/u urine and blood cultures - f/u podiatry recommendations - air mattress, turn q 2 hours - Continue antihypertensive Laurence Nash DO PGY1
--- NOTE | 2017-12-15 10:54 | PN ---
DATE: 12/14/2017 SUBJECTIVE: The patient seems comfortable, no distress. Dr. Morgan Vizcaino has seen the patient that day and he has been taking care of the wound VAC. The patient has feeding , no vomiting. His breathing is better and he has no other complaint. He is alert and awake. PHYSICAL EXAMINATION: VITAL SIGNS: Temperature 98.2, heart rate 89, blood pressure 154/88, respirations 20, saturation 95% on room air. HEAD AND NECK: Normal. NECK: No JVD. No thyromegaly. CHEST: Clear bilaterally. CARDIAC: First sound and second sound normal. No gallop, no rub. ABDOMEN: Soft. There is decreased tenderness on the right side of the abdomen. PEG tube site is clean. NEUROLOGICAL: The patient has dysphagia, but he is able to respond to calling his name and respond yes or no for any pain complaint. The patient also has left-sided weakness, but he does move his upper extremities, but has also generalized weakness. He is more awake, more alert. BACK: The patient does have stage IV sacral decubitus and local wound care has been advised. LABORATORY STUDIES: On 12/14/2017, his white count 22.1, hemoglobin 9.7, hematocrit 30.1, platelets 316 that is status post transfusions 2 units of packed RBCs, previous hemoglobin was 7.7. Chemistry shows sodium 154 which is high, potassium is 3.8, chloride 118, bicarb 25, BUN 29, creatinine 1. AST and ALT is normal. The patient also had blood sugar 119, calcium 8.7, total bili 1.7 and a little bit high, alkaline phosphatase also 203, which is high. Procalcitonin 1.72, which is elevated. Ultrasound shows gallstones, mild thickness of the gallbladder, cannot rule out cholecystitis. IMPRESSION AND PLAN: 1. An 87-year-old male came with sepsis, etiology could be Clostridium difficile colitis or underlying gallbladder disease including cholecystitis. He is high risk for any surgery, but we will get a HIDA scan and if needed, cholecystostomy by Dr. Antony Alex will be considered if HIDA scan is positive. I discussed with Dr. Zayas adding Merrem IV for a combination and continue to treat Clostridium difficile colitis. 2. Chronic obstructive pulmonary disease, hypertension, dementia, cerebrovascular accident, hypercholesterolemia, hypernatremia. Continue current therapy. Follow up with Dr. Wilmar Bladimir, the nurses assistant on the case. Continue current therapy. The patient has poor prognosis, and may consider hospice care or no cardiac resuscitation. We will discuss with the family. Cody Aguilar MD
[2017-12-15] MEDS: Vancomycin 25 MG/ML PO SCH ×4 (11:40→22:04)
--- NOTE | 2017-12-15 11:54 | CP.PCM.PN ---
<Mary Chaves - Last Filed: 12/15/17 11:51> Subjective - Date & Time of Evaluation Date of Evaluation: 12/15/17 Time of Evaluation: 11:51 - Subjective Subjective: 87 y/o male seen and examined at bedside with attending Dr. Sr present. Pt is of altered mental status and cannot give true HPI. Pt's family is at bedside at time of visit. Pt is alert and nods yes when asked if he has pain to his heels. Multipodus boots in place to bilateral lower extremities. Objective - Vital Signs/Intake and Output Vital Signs (last 24 hours): Temp Pulse Resp BP Pulse Ox 98.7 F 100 H 18 158/90 H 97 12/15/17 06:00 12/15/17 06:00 12/15/17 06:00 12/15/17 06:00 12/15/17 06:00 Intake and Output: 12/15/17 12/15/17 06:59 18:59 Output Total 380 Balance -380 - Medications Medications: Current Medications Albuterol/Ipratropium (Duoneb 3 Mg/0.5 Mg (3 Ml) Ud) 3 ml IH [id number] [facility] Last Admin: 12/15/17 07:30 Dose: 3 ml Enoxaparin Sodium (Lovenox) 30 mg SC DAILY [facility] PRN Reason: Protocol Last Admin: 12/14/17 11:18 Dose: 30 mg Metronidazole (Flagyl) 500 mg in 100 mls @ 100 mls/hr IVPB Q8 [facility] PRN Reason: Protocol Stop: 12/20/17 19:03 Last Admin: 12/15/17 06:33 Dose: 100 mls/hr Dextrose (Dextrose 5% In Water 1000 Ml) 1,000 mls @ 100 mls/hr IV .Q10H [facility] Last Admin: 12/15/17 06:37 Dose: 100 mls/hr Cefepime HCl (Maxipime 1gm) 1 gm in 100 mls @ 100 mls/hr IVPB Q12 [facility] PRN Reason: Protocol Stop: 12/22/17 22:01 Last Admin: 12/14/17 22:31 Dose: 100 mls/hr Losartan Potassium (Cozaar) 50 mg GT QPM [facility] Last Admin: 12/14/17 18:57 Dose: 50 mg Metoprolol Tartrate (Lopressor) 100 mg GT BID [facility] Pantoprazole Sodium (Protonix Inj) 20 mg IVP DAILY [facility] Last Admin: 12/14/17 11:18 Dose: 20 mg Potassium Chloride (Potassium Chloride Oral Soln) 20 meq GT DAILY [facility] Vancomycin HCl (Vancocin 25 Mg/Ml (Oral Use)) 250 mg PO QID [facility] PRN Reason: Protocol Stop: 12/20/17 19:04 Last Admin: 12/14/17 23:55 Dose: Not Given - Labs Labs: 12/15/17 07:00 12/15/17 07:00 PT 16.4 SECONDS (9.4-12.5) H 12/11/17 10:00 INR 1.42 (0.93-1.08) H 12/11/17 10:00 APTT 30.3 Seconds (25.1-36.5) 12/11/17 10:00 - Constitutional Appears: Well, Non-toxic, No Acute Distress - Extremities Exam Additional comments: Bilateral lower extremity focused examination: Multipodus boots in place to B/L lower extremities Vascular: DP/PT pulses are non palpable, CFT <3 secs x10, TG warm to warm, pedal hair is absent, no edema or erythema noted. Derm: Left: Heel eschar noted plantar and posterior aspect of the heel, measuring approximately 5.5 cm x 3.0 cm. Proximal aspect of eschar exhibits open ulceration measuring approx 2cm x 1.5cm x 0.2cm. Ulcer exhibits 100% fibronecrotic wound base, with minimal serosanguinous drainage on previous bandage. No gaurav wound erythema, no malodor, no probe to bone, no purulence, no tracking or tunneling noted, no clinical signs of infection Right: superficial necrotic eschar noted on the plantar medial aspect of the heel consistent with deep tissue injury. No open lesions noted. No fluctuance, no bogginess, no clinical signs of infection. Neuro: protective sensation grossly intact Ortho: mild-moderate pain on palpation to bilateral heels - Neurological Exam Neurological Exam: Alert, Awake - Psychiatric Exam Psychiatric exam: Normal Affect, Normal Mood Assessment and Plan - Assessment and Plan (Free Text) Assessment: 87 y/o male with 1) left posteroplantar heel ulceration secondary to pressure and 2) right heel deep tissue injury secondary to pressure Plan: Pt seen and evaluated at bedside with attending Dr. Arloro X-rays of bilateral heels negative for OM or any acute osseous changes L heel dressed with betadine and Optifoam bandage; R heel with Optifoam bandage for protection Continue Multipodus boots at all times in bed L foot MRI ordered to r/o heel as possible source of infx - wound does not appear clinically infected Continue IV abx Will continue to follow patient and perform local wound care <Valdez Sr - Last Filed: 12/16/17 09:16> Objective - Vital Signs/Intake and Output Vital Signs (last 24 hours): Temp Pulse Resp BP Pulse Ox 97.7 F 79 18 139/76 100 12/15/17 22:38 12/15/17 22:38 12/15/17 22:38 12/15/17 22:38 12/15/17 22:38 Intake and Output: 12/16/17 12/16/17 06:59 18:59 Intake Total 0 Output Total 525 Balance -525 - Medications Medications: Current Medications Albuterol/Ipratropium (Duoneb 3 Mg/0.5 Mg (3 Ml) Ud) 3 ml IH [id number] [facility] Last Admin: 12/16/17 07:15 Dose: 3 ml Enoxaparin Sodium (Lovenox) 30 mg SC DAILY [facility] PRN Reason: Protocol Last Admin: 12/15/17 13:25 Dose: 30 mg Metronidazole (Flagyl) 500 mg in 100 mls @ 100 mls/hr IVPB Q8 [facility] PRN Reason: Protocol Stop: 12/20/17 19:03 Last Admin: 12/16/17 05:30 Dose: 100 mls/hr Dextrose (Dextrose 5% In Water 1000 Ml) 1,000 mls @ 100 mls/hr IV .Q10H [facility] Last Admin: 12/16/17 05:34 Dose: Not Given Cefepime HCl (Maxipime 1gm) 1 gm in 100 mls @ 100 mls/hr IVPB Q12 [facility] PRN Reason: Protocol Stop: 12/22/17 22:01 Last Admin: 12/15/17 22:50 Dose: 100 mls/hr Losartan Potassium (Cozaar) 50 mg GT QPM [facility] Last Admin: 12/15/17 17:16 Dose: 50 mg Metoprolol Tartrate (Lopressor) 100 mg GT BID [facility] Last Admin: 12/15/17 17:16 Dose: 100 mg Pantoprazole Sodium (Protonix Inj) 20 mg IVP DAILY [facility] Last Admin: 12/15/17 13:21 Dose: 20 mg Potassium Chloride (Potassium Chloride Oral Soln) 20 meq GT DAILY [facility] Last Admin: 12/15/17 13:25 Dose: 20 meq Vancomycin HCl (Vancocin 25 Mg/Ml (Oral Use)) 250 mg PO QID [facility] PRN Reason: Protocol Stop: 12/20/17 19:04 Last Admin: 12/15/17 22:04 Dose: 250 mg - Labs Labs: 12/16/17 06:30 12/16/17 06:30 PT 16.4 SECONDS (9.4-12.5) H 12/11/17 10:00 INR 1.42 (0.93-1.08) H 12/11/17 10:00 APTT 30.3 Seconds (25.1-36.5) 12/11/17 10:00 Attending/Attestation - Attestation I have personally seen and examined this patient.: Yes I have fully participated in the care of the patient.: Yes I have reviewed all pertinent clinical information, including history, physical exam and plan: Yes
[2017-12-15] MEDS: Cefepime 1gm in NS 100ml 1 GM/100 ML BAG IVPB SCH ×2 (13:21→22:50)
[2017-12-15] MEDS: Potassium Chloride 20 mEq/15 ml LIQ UD GT SCH (13:25)
[2017-12-15] MEDS: Enoxaparin 30 mg Syringe SC SCH (13:25)
--- NOTE | 2017-12-15 13:49 | CP.PCM.PN ---
<Ilya Webber - Last Filed: 12/15/17 13:45> Subjective - Date & Time of Evaluation Date of Evaluation: 12/15/17 Time of Evaluation: 10:30 - Subjective Subjective: GI Progress Note for Dr. Teodoro Webber, PGY-3 Patient seen and examined at bedside. Hgb holding steady after 1 unit pRBCs transfused 2 nights prior. Mentation worse today, tries to nod and shake head, but barely able to, and attempts to speak end up as unintelligible non-verbal groans. Is following commands appropriately, so at least some intact cognition. Objective - Vital Signs/Intake and Output Vital Signs (last 24 hours): Temp Pulse Resp BP Pulse Ox 98.7 F 100 H 18 158/90 H 97 12/15/17 06:00 12/15/17 06:00 12/15/17 06:00 12/15/17 06:00 12/15/17 06:00 Intake and Output: 12/15/17 12/15/17 06:59 18:59 Output Total 380 Balance -380 - Medications Medications: Current Medications Albuterol/Ipratropium (Duoneb 3 Mg/0.5 Mg (3 Ml) Ud) 3 ml IH [id number] [facility] Last Admin: 12/15/17 13:05 Dose: Not Given Enoxaparin Sodium (Lovenox) 30 mg SC DAILY [facility] PRN Reason: Protocol Last Admin: 12/15/17 13:25 Dose: 30 mg Metronidazole (Flagyl) 500 mg in 100 mls @ 100 mls/hr IVPB Q8 [facility] PRN Reason: Protocol Stop: 12/20/17 19:03 Last Admin: 12/15/17 06:33 Dose: 100 mls/hr Dextrose (Dextrose 5% In Water 1000 Ml) 1,000 mls @ 100 mls/hr IV .Q10H [facility] Last Admin: 12/15/17 06:37 Dose: 100 mls/hr Cefepime HCl (Maxipime 1gm) 1 gm in 100 mls @ 100 mls/hr IVPB Q12 [facility] PRN Reason: Protocol Stop: 12/22/17 22:01 Last Admin: 12/15/17 13:21 Dose: 100 mls/hr Losartan Potassium (Cozaar) 50 mg GT QPM [facility] Last Admin: 12/14/17 18:57 Dose: 50 mg Metoprolol Tartrate (Lopressor) 100 mg GT BID [facility] Pantoprazole Sodium (Protonix Inj) 20 mg IVP DAILY [facility] Last Admin: 12/15/17 13:21 Dose: 20 mg Potassium Chloride (Potassium Chloride Oral Soln) 20 meq GT DAILY [facility] Last Admin: 12/15/17 13:25 Dose: 20 meq Vancomycin HCl (Vancocin 25 Mg/Ml (Oral Use)) 250 mg PO QID [facility] PRN Reason: Protocol Stop: 12/20/17 19:04 Last Admin: 12/15/17 13:22 Dose: 250 mg - Labs Labs: 12/15/17 07:00 12/15/17 07:00 PT 16.4 SECONDS (9.4-12.5) H 12/11/17 10:00 INR 1.42 (0.93-1.08) H 12/11/17 10:00 APTT 30.3 Seconds (25.1-36.5) 12/11/17 10:00 - Additional Findings Additional findings: - Constitutional Appears: Non-toxic, No Acute Distress, Chronically Ill, Lethargic/somnolent - Head Exam Head Exam: ATRAUMATIC, NORMAL INSPECTION, NORMOCEPHALIC - Eye Exam Eye Exam: absent: Conjunctival injection, Scleral icterus, EOMI (not following commands for EOMI, mostly staring straight past examiner, so unable to fully assess) Pupil Exam: absent: Fixed, Irregular - ENT Exam ENT Exam: Mucous Membranes Dry - Neck Exam Neck exam: Positive for: Normal Inspection. Negative for: Lymphadenopathy, Thyromegaly - Respiratory Exam Respiratory Exam: Mildly Decreased Breath Sounds otherwise CTAB, NORMAL BREATHING PATTERN. absent: Accessory Muscle Use, Prolonged Expiratory Phase, Rales, Rhonchi, Wheezes, Respiratory Distress, Stridor - Cardiovascular Exam Cardiovascular Exam: Tachycardic but regular rhythm, +S1, +S2. absent: Bradycardia, Irregular Rhythm, JVD - GI/Abdominal Exam GI & Abdominal Exam: Normal Bowel Sounds, Freely mobile PEG tube, RUQ tenderness to palpation (reacts to palpation at this site). absent: Diminished Bowel Sounds, Distended, Firm, Guarding, Hyperactive Bowel Sounds, Hypoactive Bowel Sounds Additional comments: PEG tube in place, no appreciable surrounding erythema or induration, not warm to touch, no acute reaction to deep palpation, no bloody or purulent discharge from the tube or surrounding area appreciated - Extremities Exam Extremities exam: Positive for: normal inspection, pedal pulses present. Negative for: calf tenderness, joint swelling, pedal edema, tenderness - Neurological Exam Appears almost obtunded, almost no spontaneous movements, staring past examiner for most of exam, but able to follow some simple commands, non-verbal and when attempting to speak only able to give non-verbal moan - Psychiatric Exam demented, non-verbal moan only when attempting to speak - Skin Skin Exam: Dry, Intact, Normal Color, Warm Assessment and Plan - Assessment and Plan (Free Text) Assessment: This is an 87 yo M with PMH of CHF, CVA, COPD, dementia, HTN, CKD, hx of PEG tube, and hx of hydropneumothorax who was brought in by ambulance from [facility] ([facility]) due to fever since yesterday. He was being treated for C diff infectious at the [place], and GI is being consulted for the C Diff infection + Peg tube/abd tenderness. He has also been found to have enlarged GB with cholelithiasis present, concerning for acute cholecystitis. Plan: Dementia, possible hypoactive delirium overlying vs AMS 2/2 infectious process Hx CVA, COPD, HTN Hx PEG tube, reported abd tenderness at PEG-site Sepsis 2/2 UTI vs C diff, possibly another source causing infection due to persistence of > 20 WBCs despite abx regimen Cholelithiasis -Flagyl IV and Vanco PO as per ID, Maxipime added due to worsening state, worsening white count -Stool C Diff positive for antigen and toxin; however, as patient retains elevated WBCs and has worsening AMS, concern for possible other infectious source (GB given possible cholecystitis vs sacral wound vs PNA vs UTI), blood cx negative at 3 days, urine cx positive for yeast -Seen by Paliative service, full code as per family (per Palliative's note, family not present during exam) -Starting tube feeds to prevent malnutrition, continue NPO due to AMS, high risk for aspiration -on D5 W as per Nephro due to hypernatremia, reports dehydrated due to losses from diarrhea likely greater than gains from IV fluids, continue IVF -No report from [facility] of unable to flush PEG, appears to still be patent, no appreciable tenderness or abnormality on exam, freely mobile peg on exam -CT abd/pelvis notable Bibasilar consolidation at lung base, Gallstones with distension/wall thickening concerning for cholecystitis, pending HIDA as per surgery -Surgery, ID, Nephro, and Podiatry following, appreciate their insights Pt seen, reviewed, and discussed with attending, Dr Valerio <Seth Valerio V - Last Filed: 12/16/17 00:18> Objective - Vital Signs/Intake and Output Vital Signs (last 24 hours): Temp Pulse Resp BP Pulse Ox 97.7 F 79 18 139/76 100 12/15/17 22:38 12/15/17 22:38 12/15/17 22:38 12/15/17 22:38 12/15/17 22:38 Intake and Output: 12/15/17 12/16/17 18:59 06:59 Intake Total 0 Output Total 525 Balance -525 - Medications Medications: Current Medications Albuterol/Ipratropium (Duoneb 3 Mg/0.5 Mg (3 Ml) Ud) 3 ml IH [id number] [facility] Last Admin: 12/15/17 19:48 Dose: 3 ml Enoxaparin Sodium (Lovenox) 30 mg SC DAILY [facility] PRN Reason: Protocol Last Admin: 12/15/17 13:25 Dose: 30 mg Metronidazole (Flagyl) 500 mg in 100 mls @ 100 mls/hr IVPB Q8 [facility] PRN Reason: Protocol Stop: 12/20/17 19:03 Last Admin: 12/15/17 22:04 Dose: 100 mls/hr Dextrose (Dextrose 5% In Water 1000 Ml) 1,000 mls @ 100 mls/hr IV .Q10H [facility] Last Admin: 12/15/17 06:37 Dose: 100 mls/hr Cefepime HCl (Maxipime 1gm) 1 gm in 100 mls @ 100 mls/hr IVPB Q12 [facility] PRN Reason: Protocol Stop: 12/22/17 22:01 Last Admin: 12/15/17 22:50 Dose: 100 mls/hr Losartan Potassium (Cozaar) 50 mg GT QPM [facility] Last Admin: 12/15/17 17:16 Dose: 50 mg Metoprolol Tartrate (Lopressor) 100 mg GT BID [facility] Last Admin: 12/15/17 17:16 Dose: 100 mg Pantoprazole Sodium (Protonix Inj) 20 mg IVP DAILY [facility] Last Admin: 12/15/17 13:21 Dose: 20 mg Potassium Chloride (Potassium Chloride Oral Soln) 20 meq GT DAILY [facility] Last Admin: 12/15/17 13:25 Dose: 20 meq Vancomycin HCl (Vancocin 25 Mg/Ml (Oral Use)) 250 mg PO QID [facility] PRN Reason: Protocol Stop: 12/20/17 19:04 Last Admin: 12/15/17 22:04 Dose: 250 mg - Labs Labs: 12/15/17 07:00 12/15/17 07:00 PT 16.4 SECONDS (9.4-12.5) H 12/11/17 10:00 INR 1.42 (0.93-1.08) H 12/11/17 10:00 APTT 30.3 Seconds (25.1-36.5) 12/11/17 10:00 Attending/Attestation - Attestation I have personally seen and examined this patient.: Yes I have fully participated in the care of the patient.: Yes I have reviewed all pertinent clinical information, including history, physical exam and plan: Yes Notes (Text): This is an addendum to GI progress report dictated by the Clearing Tub Worker.The patient was seen and examined earlier. Medical records, lab studies, imagings were reviewed. Last 24 hours events reviewed. Agreed with the above treatment plan as outlined in Clearing Tub Worker 's notes the with the addition of the following 12/16/17 00:13
--- NOTE | 2017-12-15 14:55 | CP.PCM.PN ---
Subjective - Date & Time of Evaluation Date of Evaluation: 12/15/17 Time of Evaluation: 14:55 - Subjective Subjective: Nephrology Consultation Note: Assessment: Stable Fever with C diff diarrhoea Acute Kidney Injury (N17.9) likely due to pre-renal state Hypokalemia, hypernatremia Hypoalbuminemia, pleural effusion, malnourished state (BMI 14.6 and hypoalbuminemia) COPD, TIA/CVA, hx of peg tube, sacral decubitus ulcer, CHF, dementia, hypertension, ADIEL and C diff Anemia Plan No acute need for renal replacement therapy at this time. renal function stable Hypertension control with meds as ordered. resume losartan 50 mg/day. increased lopressor 100 mg bid Monitor Input/Output, daily weights and renal function with basic metabolic panel continue with IVF but as D5W @ 100 ml/hr due to hypernatremia. pt started on tube feeds today with water flush 200 ml every 4-6 hrs. would be able to stop IVF once hypernatremia better GI, surgery following supplements lytes as needed. KCL 20 meq/day added Dose meds/antibiotics for improved GFR. Avoid nephrotoxins/NSAIDs Glycemic control Further work up/management as per primary team Thanks for allowing me to participate in care of your patient. Will follow patient with you. Please call if any Qs. had d/w team Dr Wilmar Garrison Office: [phone] Chief Complaint; unable HPI: Pt is a 87 M with hx of COPD, TIA/CVA, hx of peg tube, sacral decubitus ulcer, CHF, dementia, hypertension, ADIEL and C diff presented with complaints of fever from [place] and being worked up. renal consult for ADIEL no known OTC/herbal meds or NSAIDs No recent iodinated contrast exposure. Noted episodes of low BP (101/57). ROS: unable to obtain from pt Physical Examination: General Appearance: frail elderly male malnourished, in no acute respiratory distress, Vitals reviewed and noted as below Head; Atraumatic, normocephalic ENT: no ulcers no thrush. Tongue is midline/dry . Oropharynx: no rash EYES: Pupils are equal, round and reactive to light accommodation. Eye muscles and extraocular movement intact. Sclera is anicteric. Neck; supple no lymphadenopathy, no thyromegaly or bruit Lungs: Normal respiratory rate/effort. Breath sounds bilateral equal and clear anteriorly Heart: Normal rate. s1s2 normal. No rub or gallop. Extremities: no edema. No varicose veins Neurological: Patient is alert, awake and dementia Skin: Warm and dry. Normal turgor. No rash. Palpitation: Normal elasticity for age Abdomen: Abdomen is soft. Bowel sounds +. There is mild abdominal tenderness, no guarding/rigidity no organomegaly. has PEG tube Psych: unable MSK: no joint tenderness or swelling. Digits and nails normal, no deformity : kidney or bladder not palpable Labs/imaging reviewed. Past medical history, past surgical history, family history, social history, allergy reviewed and noted as below Family hx: no hx of CKD. Rest non-contributory renal imaing WNL UA 100 protein and trace ketone Objective - Vital Signs/Intake and Output Vital Signs (last 24 hours): Temp Pulse Resp BP Pulse Ox 98.7 F 100 H 18 158/90 H 97 12/15/17 06:00 12/15/17 06:00 12/15/17 06:00 12/15/17 06:00 12/15/17 06:00 Intake and Output: 12/15/17 12/15/17 06:59 18:59 Output Total 380 Balance -380 - Medications Medications: Current Medications Albuterol/Ipratropium (Duoneb 3 Mg/0.5 Mg (3 Ml) Ud) 3 ml IH [id number] [facility] Last Admin: 12/15/17 13:05 Dose: Not Given Enoxaparin Sodium (Lovenox) 30 mg SC DAILY [facility] PRN Reason: Protocol Last Admin: 12/15/17 13:25 Dose: 30 mg Metronidazole (Flagyl) 500 mg in 100 mls @ 100 mls/hr IVPB Q8 [facility] PRN Reason: Protocol Stop: 12/20/17 19:03 Last Admin: 12/15/17 06:33 Dose: 100 mls/hr Dextrose (Dextrose 5% In Water 1000 Ml) 1,000 mls @ 100 mls/hr IV .Q10H [facility] Last Admin: 12/15/17 06:37 Dose: 100 mls/hr Cefepime HCl (Maxipime 1gm) 1 gm in 100 mls @ 100 mls/hr IVPB Q12 [facility] PRN Reason: Protocol Stop: 12/22/17 22:01 Last Admin: 12/15/17 13:21 Dose: 100 mls/hr Losartan Potassium (Cozaar) 50 mg GT QPM [facility] Last Admin: 12/14/17 18:57 Dose: 50 mg Metoprolol Tartrate (Lopressor) 100 mg GT BID [facility] Pantoprazole Sodium (Protonix Inj) 20 mg IVP DAILY [facility] Last Admin: 12/15/17 13:21 Dose: 20 mg Potassium Chloride (Potassium Chloride Oral Soln) 20 meq GT DAILY [facility] Last Admin: 12/15/17 13:25 Dose: 20 meq Vancomycin HCl (Vancocin 25 Mg/Ml (Oral Use)) 250 mg PO QID [facility] PRN Reason: Protocol Stop: 12/20/17 19:04 Last Admin: 12/15/17 13:22 Dose: 250 mg - Labs Labs: 12/15/17 07:00 12/15/17 07:00 PT 16.4 SECONDS (9.4-12.5) H 12/11/17 10:00 INR 1.42 (0.93-1.08) H 12/11/17 10:00 APTT 30.3 Seconds (25.1-36.5) 12/11/17 10:00
--- NOTE | 2017-12-15 16:47 | NM ---
PROCEDURE: Nuclear Medicine Hepatobiliary Scan HISTORY: RUQ pain, leukocystosis, r/o cholecystitis COMPARISON: 05/29/2014 hepatobiliary scan. Summary of findings on the comparison examination: Abnormal scan. Nonvisualization of gallbladder consistent with cystic duct obstruction. 12/12/2017 abdominal ultrasound TECHNIQUE: 5.4 mCi of technetium 99m Mebrofenin was administered intravenously. Planar images of the abdomen were obtained at 5 min intervals to 60 mins. Delayed images were also obtained. FINDINGS: LIVER: Timely and homogenous uptake. COMMON BILE DUCT: identified at 30 mins. GALLBLADDER: not identified at 4 hours. SMALL BOWEL: Identified at 30 mins. IMPRESSION: Abnormal Hepatobiliary Scan. The cystic duct is occluded, and there is nonvisualization gallbladder presumptive evidence for acute cholecystitis. Similar findings identified on the prior hepatobiliary scan.
--- NOTE | 2017-12-16 01:03 | PN ---
DATE: 12/15/2017 SUBJECTIVE: The patient is in bed, in no acute distress. PHYSICAL EXAMINATION VITAL SIGNS: On exam, temperature is 98, blood pressure is 150/80, respiratory rate of 16. HEENT: Examination of HEENT is unremarkable. NECK: Supple. LUNGS: Have decreased breath sounds. HEART: Normal S1, S2. ABDOMEN: Soft, nontender. LABORATORY DATA: Laboratory examination reveals the patient's white count of 28,000, hemoglobin of 10. Microbiology is noted. Yeast in the urine. The patient had HIDA scan today which was cystic duct is occluded. Nonvisualization of the gallbladder and evidence of acute cholecystitis. ASSESSMENT AND PLAN: This is an 87-year-old male seen earlier this morning in room 560, bed 2, history of chronic obstructive lung disease, congestive heart failure, dementia, cataract, hypertension, transient ischemic attack, osteoarthritis, ascending cholangitis, necrotizing fascitis in left gluteal area, percutaneous endoscopic gastrostomy tube placement, now presenting with severe sepsis secondary to pseudomembranous colitis, stage IV decubitus ulcer, and acute cholecystis, on intravenous Flagyl and p.o. vancomycin and intravenous cefepime. Overall, prognosis is quite poor. Should consider hospice supportive care only setting. Virgil Zayas MD
[2017-12-16] MEDS: Albuterol-Ipratrop 3 mg / 0.5 (3 ml) UD IH SCH ×4 (02:15→21:05)
[2017-12-16] MEDS: metroNIDAZOLE IV 500 mg/100 ml 500 MG/100 ML BAG IVPB SCH ×3 (05:30→21:41)
[2017-12-16 06:56] LABS: BASO # 0.04 K/mm3 (0.0-2.0); BASO % 0.2 % (0.0-3.0); EOS # 0.1 (0.0-0.7); EOS % 0.5 % (1.5-5.0); GRAN # 22.37 (1.4-6.5); GRAN % 87.8 % (50.0-68.0); HEMOGLOBIN 9.9 g/dL (14.0-18.0); LYMPH # 2.1 (1.2-3.4); LYMPH % 8.2 % (22.0-35.0); MEAN CELL VOLUME 74.3 fl (80.0-105.0); MEAN CORPUSCULAR HEMOGLOBIN 23.7 pg (25.0-35.0); MEAN CORPUSCULAR HGB CONC 31.9 g/dl (31.0-37.0); MEAN PLATELET VOLUME 9.5 fl (7.0-11.0); MONO # 0.8 (0.1-0.6); MONO % 3.3 % (1.0-6.0); RBC 4.17 10^6/uL (3.5-6.1); RED CELL DISTRIBUTION WIDTH 22.6 % (11.5-14.5)
[2017-12-16 07:19] LABS: WHITE BLOOD COUNT 25.5 10^3/ul (4.5-11.0)
[2017-12-16 07:32] LABS: ALB/GLOB RATIO 0.9 (1.1-1.8); ALBUMIN 2.8 g/dL (3.0-4.8); ALT/SGPT 29 U/L (7-56); AST/SGOT 25 U/L (17-59); BLOOD UREA NITROGEN 25 mg/dL (7-21); GFR AFRICAN-AMERICAN > 60; GFR NON-AFRICAN AMERICAN > 60
--- NOTE | 2017-12-16 08:39 | CP.PCM.PN ---
Subjective - Date & Time of Evaluation Date of Evaluation: 12/16/17 Time of Evaluation: 07:00 - Subjective Subjective: GENERAL SURGERY PROGRESS NOTE FOR DR. MCCLAIN Patient seen and examined at bedside. When asked about pain, patient points to LLQ. Objective - Vital Signs/Intake and Output Vital Signs (last 24 hours): Temp Pulse Resp BP Pulse Ox 97.7 F 79 18 139/76 100 12/15/17 22:38 12/15/17 22:38 12/15/17 22:38 12/15/17 22:38 12/15/17 22:38 Intake and Output: 12/16/17 12/16/17 06:59 18:59 Intake Total 0 Output Total 525 Balance -525 - Medications Medications: Current Medications Albuterol/Ipratropium (Duoneb 3 Mg/0.5 Mg (3 Ml) Ud) 3 ml IH [id number] [facility] Last Admin: 12/16/17 07:15 Dose: 3 ml Enoxaparin Sodium (Lovenox) 30 mg SC DAILY [facility]IE PRN Reason: Protocol Last Admin: 12/15/17 13:25 Dose: 30 mg Metronidazole (Flagyl) 500 mg in 100 mls @ 100 mls/hr IVPB Q8 [facility]IE PRN Reason: Protocol Stop: 12/20/17 19:03 Last Admin: 12/16/17 05:30 Dose: 100 mls/hr Dextrose (Dextrose 5% In Water 1000 Ml) 1,000 mls @ 100 mls/hr IV .Q10H [facility] Last Admin: 12/16/17 05:34 Dose: Not Given Cefepime HCl (Maxipime 1gm) 1 gm in 100 mls @ 100 mls/hr IVPB Q12 [facility]IE PRN Reason: Protocol Stop: 12/22/17 22:01 Last Admin: 12/15/17 22:50 Dose: 100 mls/hr Losartan Potassium (Cozaar) 50 mg GT QPM [facility] Last Admin: 12/15/17 17:16 Dose: 50 mg Metoprolol Tartrate (Lopressor) 100 mg GT BID [facility] Last Admin: 12/15/17 17:16 Dose: 100 mg Pantoprazole Sodium (Protonix Inj) 20 mg IVP DAILY [facility] Last Admin: 12/15/17 13:21 Dose: 20 mg Potassium Chloride (Potassium Chloride Oral Soln) 20 meq GT DAILY [facility] Last Admin: 12/15/17 13:25 Dose: 20 meq Vancomycin HCl (Vancocin 25 Mg/Ml (Oral Use)) 250 mg PO QID [facility]IE PRN Reason: Protocol Stop: 12/20/17 19:04 Last Admin: 12/15/17 22:04 Dose: 250 mg - Labs Labs: 12/16/17 06:30 12/16/17 06:30 PT 16.4 SECONDS (9.4-12.5) H 12/11/17 10:00 INR 1.42 (0.93-1.08) H 12/11/17 10:00 APTT 30.3 Seconds (25.1-36.5) 12/11/17 10:00 - Constitutional Appears: Non-toxic, No Acute Distress - Head Exam Head Exam: ATRAUMATIC - Respiratory Exam Respiratory Exam: NORMAL BREATHING PATTERN. absent: Respiratory Distress - Cardiovascular Exam Cardiovascular Exam: +S1, +S2 - GI/Abdominal Exam GI & Abdominal Exam: Soft. absent: Distended, Firm, Guarding, Rigid, Tenderness , Rebound Additional comments: No tenderness RUQ on deep palpation - Neurological Exam Neurological Exam: Alert, Awake. absent: Oriented x3 - Skin Additional comments: 15cm x 10cm x 1 cm stage 4 decubitus ulcer. Wound Vac in place Assessment and Plan - Assessment and Plan (Free Text) Assessment: 87 y/o M with sacral decubitus ulcer and unclear source of leukocytosis, r/o cholecystitis Plan: - Sacral decubitus ulcer with Wound Vac in place, will change in 12/18 - Air mattress, turn q 2 hours - Continue antibiotics per ID recs - Urine cx: yeast, blood cx: negative - Leukocytosis remains but WBC 25.5 from 28 yesterday - HIDA scan: gallbladder not visualized, however, pt non tender in RUQ - f/u GI recs - f/u IR for possible cholecystostomy tube - Discussed plan with Dr. Carrillo Doe PGY-4
--- NOTE | 2017-12-16 10:41 | CP.PCM.PN ---
Subjective - Date & Time of Evaluation Date of Evaluation: 12/16/17 Time of Evaluation: 10:40 - Subjective Subjective: Nephrology Consultation Note: Assessment: Stable Fever with C diff diarrhoea Acute Kidney Injury (N17.9) likely due to pre-renal state Hypokalemia, hypernatremia Hypoalbuminemia, pleural effusion, malnourished state (BMI 14.6 and hypoalbuminemia) COPD, TIA/CVA, hx of peg tube, sacral decubitus ulcer, CHF, dementia, hypertension, ADIEL and C diff Anemia cholecystitis Plan No acute need for renal replacement therapy at this time. renal function stable Hypertension control with meds as ordered. resume losartan 50 mg/day. increased lopressor 100 mg bid Monitor Input/Output, daily weights and renal function with basic metabolic panel continue with IVF but as D5W @ 100 ml/hr due to hypernatremia. pt started on tube feeds today with water flush 200 ml every 4-6 hrs. would be able to lower IVF once hypernatremia better GI, surgery following supplements lytes as needed. KCL 20 meq/day added Dose meds/antibiotics for improved GFR. Avoid nephrotoxins/NSAIDs Glycemic control Further work up/management as per primary team Thanks for allowing me to participate in care of your patient. Will follow patient with you. Please call if any Qs. had d/w team Dr Wilmar Garrison Office: [phone] Chief Complaint; unable HPI: Pt is a 87 M with hx of COPD, TIA/CVA, hx of peg tube, sacral decubitus ulcer, CHF, dementia, hypertension, ADIEL and C diff presented with [facility] and being worked up. renal consult for ADIEL no known OTC/herbal meds or NSAIDs No recent iodinated contrast exposure. Noted episodes of low BP (101/57). ROS: unable to obtain from pt Physical Examination: General Appearance: frail elderly male malnourished, in no acute respiratory distress, Vitals reviewed and noted as below Head; Atraumatic, normocephalic ENT: no ulcers no thrush. Tongue is midline/dry . Oropharynx: no rash EYES: Pupils are equal, round and reactive to light accommodation. Eye muscles and extraocular movement intact. Sclera is anicteric. Neck; supple no lymphadenopathy, no thyromegaly or bruit Lungs: Normal respiratory rate/effort. Breath sounds bilateral equal and clear anteriorly Heart: Normal rate. s1s2 normal. No rub or gallop. Extremities: no edema. No varicose veins Neurological: Patient is alert, awake and dementia Skin: Warm and dry. Normal turgor. No rash. Palpitation: Normal elasticity for age Abdomen: Abdomen is soft. Bowel sounds +. There is mild abdominal tenderness, no guarding/rigidity no organomegaly. has PEG tube Psych: unable MSK: no joint tenderness or swelling. Digits and nails normal, no deformity : kidney or bladder not palpable Labs/imaging reviewed. Past medical history, past surgical history, family history, social history, allergy reviewed and noted as below Family hx: no hx of CKD. Rest non-contributory renal imaing WNL UA 100 protein and trace ketone Objective - Vital Signs/Intake and Output Vital Signs (last 24 hours): Temp Pulse Resp BP Pulse Ox 96.5 F L 92 H 20 142/59 L 96 12/16/17 06:00 12/16/17 06:00 12/16/17 06:00 12/16/17 06:00 12/16/17 06:00 Intake and Output: 12/16/17 12/16/17 06:59 18:59 Intake Total 0 Output Total 525 Balance -525 - Medications Medications: Current Medications Albuterol/Ipratropium (Duoneb 3 Mg/0.5 Mg (3 Ml) Ud) 3 ml IH [id number] [facility] Last Admin: 12/16/17 07:15 Dose: 3 ml Enoxaparin Sodium (Lovenox) 30 mg SC DAILY [facility]IE PRN Reason: Protocol Last Admin: 12/15/17 13:25 Dose: 30 mg Metronidazole (Flagyl) 500 mg in 100 mls @ 100 mls/hr IVPB Q8 [facility] PRN Reason: Protocol Stop: 12/20/17 19:03 Last Admin: 12/16/17 05:30 Dose: 100 mls/hr Dextrose (Dextrose 5% In Water 1000 Ml) 1,000 mls @ 100 mls/hr IV .Q10H [facility] Last Admin: 12/16/17 05:34 Dose: Not Given Cefepime HCl (Maxipime 1gm) 1 gm in 100 mls @ 100 mls/hr IVPB Q12 [facility]IE PRN Reason: Protocol Stop: 12/22/17 22:01 Last Admin: 12/15/17 22:50 Dose: 100 mls/hr Losartan Potassium (Cozaar) 50 mg GT QPM [facility] Last Admin: 12/15/17 17:16 Dose: 50 mg Metoprolol Tartrate (Lopressor) 100 mg GT BID [facility] Last Admin: 12/15/17 17:16 Dose: 100 mg Pantoprazole Sodium (Protonix Inj) 20 mg IVP DAILY [facility] Last Admin: 12/15/17 13:21 Dose: 20 mg Potassium Chloride (Potassium Chloride Oral Soln) 20 meq GT DAILY [facility] Last Admin: 12/15/17 13:25 Dose: 20 meq Vancomycin HCl (Vancocin 25 Mg/Ml (Oral Use)) 250 mg PO QID [facility] PRN Reason: Protocol Stop: 12/20/17 19:04 Last Admin: 12/15/17 22:04 Dose: 250 mg - Labs Labs: 12/16/17 06:30 12/16/17 06:30 PT 16.4 SECONDS (9.4-12.5) H 12/11/17 10:00 INR 1.42 (0.93-1.08) H 12/11/17 10:00 APTT 30.3 Seconds (25.1-36.5) 12/11/17 10:00
--- NOTE | 2017-12-16 11:15 | CP.PCM.PN ---
<Grant Forman - Last Filed: 12/16/17 11:11> Subjective - Date & Time of Evaluation Date of Evaluation: 12/16/17 Time of Evaluation: 11:12 - Subjective Subjective: Podiatry progress note for Dr. Sr 87 y/o male seen and examined at bedside with attending Dr. Sr. Pt is of altered mental status and cannot give true HPI. Pt is alert and nods yes when asked if he has pain to his heels. Multipodus boots in place to bilateral lower extremities, dressings C/D/I. Objective - Vital Signs/Intake and Output Vital Signs (last 24 hours): Temp Pulse Resp BP Pulse Ox 96.5 F L 92 H 20 142/59 L 96 12/16/17 06:00 12/16/17 06:00 12/16/17 06:00 12/16/17 06:00 12/16/17 06:00 Intake and Output: 12/16/17 12/16/17 06:59 18:59 Intake Total 0 Output Total 525 Balance -525 - Medications Medications: Current Medications Albuterol/Ipratropium (Duoneb 3 Mg/0.5 Mg (3 Ml) Ud) 3 ml IH [id number] [facility] Last Admin: 12/16/17 07:15 Dose: 3 ml Enoxaparin Sodium (Lovenox) 30 mg SC DAILY [facility] PRN Reason: Protocol Last Admin: 12/15/17 13:25 Dose: 30 mg Metronidazole (Flagyl) 500 mg in 100 mls @ 100 mls/hr IVPB Q8 [facility] PRN Reason: Protocol Stop: 12/20/17 19:03 Last Admin: 12/16/17 05:30 Dose: 100 mls/hr Dextrose (Dextrose 5% In Water 1000 Ml) 1,000 mls @ 100 mls/hr IV .Q10H [facility] Last Admin: 12/16/17 05:34 Dose: Not Given Cefepime HCl (Maxipime 1gm) 1 gm in 100 mls @ 100 mls/hr IVPB Q12 [facility] PRN Reason: Protocol Stop: 12/22/17 22:01 Last Admin: 12/15/17 22:50 Dose: 100 mls/hr Losartan Potassium (Cozaar) 50 mg GT QPM [facility] Last Admin: 12/15/17 17:16 Dose: 50 mg Metoprolol Tartrate (Lopressor) 100 mg GT BID [facility] Last Admin: 12/15/17 17:16 Dose: 100 mg Pantoprazole Sodium (Protonix Inj) 20 mg IVP DAILY [facility] Last Admin: 12/15/17 13:21 Dose: 20 mg Potassium Chloride (Potassium Chloride Oral Soln) 20 meq GT DAILY [facility] Last Admin: 12/15/17 13:25 Dose: 20 meq Vancomycin HCl (Vancocin 25 Mg/Ml (Oral Use)) 250 mg PO QID [facility] PRN Reason: Protocol Stop: 12/20/17 19:04 Last Admin: 12/15/17 22:04 Dose: 250 mg - Labs Labs: 12/16/17 06:30 12/16/17 06:30 PT 16.4 SECONDS (9.4-12.5) H 12/11/17 10:00 INR 1.42 (0.93-1.08) H 12/11/17 10:00 APTT 30.3 Seconds (25.1-36.5) 12/11/17 10:00 - Constitutional Appears: Well, Non-toxic, No Acute Distress - Extremities Exam Additional comments: Bilateral lower extremity focused examination: Vasc - DP/PT pulses are non palpable, CFT <3 secs x10, TG warm to warm, pedal hair is absent, no edema or erythema noted. Derm - Left: Heel eschar noted plantar and posterior aspect of the heel, measuring approximately 5.5 cm x 3.0 cm. Proximal aspect of eschar exhibits open ulceration measuring approx 2cm x 1.5cm x 0.2cm. Ulcer exhibits 100% fibronecrotic wound base, with minimal serosanguinous drainage on previous bandage. No gaurav wound erythema, no malodor, no probe to bone, no purulence, no tracking or tunneling noted, no clinical signs of infection Right: superficial necrotic eschar noted on the plantar medial aspect of the heel consistent with deep tissue injury. No open lesions noted. No fluctuance, no bogginess, no clinical signs of infection. Neuro - gross and protective sensation grossly intact Ortho - moderate pain on palpation to bilateral heels - Neurological Exam Neurological Exam: Alert, Awake - Psychiatric Exam Psychiatric exam: Normal Affect, Normal Mood Assessment and Plan - Assessment and Plan (Free Text) Assessment: 87 y/o male with 1) left posteroplantar heel ulceration secondary to pressure and 2) right heel deep tissue injury secondary to pressure Plan: Pt seen and evaluated at bedside with attending Dr. Sr X-rays - negative for OM or any acute osseous changes L heel dressed with betadine and Optifoam bandage; R heel with Optifoam bandage for protection Continue Multipodus boots at all times in bed L foot MRI ordered to r/o heel as possible source of infx - pending, wound does not appear clinically infected Continue IV abx Will continue to follow patient and perform local wound care <Valdez Sr - Last Filed: 12/19/17 11:32> Objective - Vital Signs/Intake and Output Vital Signs (last 24 hours): Temp Pulse Resp BP Pulse Ox 98 F 82 16 137/88 96 12/19/17 06:00 12/19/17 10:57 12/19/17 06:00 12/19/17 10:57 12/19/17 06:00 Intake and Output: 12/19/17 12/19/17 06:59 18:59 Intake Total 0 Output Total 1500 Balance -1500 - Medications Medications: Current Medications Acetaminophen (Tylenol 650mg/20.3ml Solution Ud) 650 mg PEG Q6H PRN PRN Reason: Pain, Mild (1-3) Albuterol/Ipratropium (Duoneb 3 Mg/0.5 Mg (3 Ml) Ud) 3 ml IH [id number] [facility] Last Admin: 12/19/17 07:20 Dose: 3 ml Arformoterol Tartrate (Brovana) 15 mcg IH [id number] [facility] Last Admin: 12/19/17 07:20 Dose: 15 mcg Aspirin (Ecotrin) 81 mg PO DAILY [facility] Last Admin: 12/19/17 10:59 Dose: 81 mg Budesonide (Pulmicort Respules) 0.25 mg IH [id number] [facility] Last Admin: 12/19/17 07:20 Dose: 0.25 mg Doxycycline Hyclate (Doryx) 100 mg PO Q12 [facility] PRN Reason: Protocol Enoxaparin Sodium (Lovenox) 30 mg SC DAILY [facility] PRN Reason: Protocol Last Admin: 12/19/17 10:57 Dose: 30 mg Metronidazole (Flagyl) 500 mg in 100 mls @ 100 mls/hr IVPB Q8 [facility] PRN Reason: Protocol Stop: 12/20/17 19:03 Last Admin: 12/19/17 05:13 Dose: 100 mls/hr Cefepime HCl (Maxipime 1gm) 1 gm in 100 mls @ 100 mls/hr IVPB Q12 [facility] PRN Reason: Protocol Stop: 12/22/17 22:01 Last Admin: 12/19/17 10:55 Dose: 100 mls/hr Losartan Potassium (Cozaar) 50 mg GT QPM [facility] Last Admin: 12/18/17 18:14 Dose: 50 mg Metoprolol Tartrate (Lopressor) 100 mg GT BID [facility] Last Admin: 12/19/17 10:57 Dose: 100 mg Oxycodone/Acetaminophen (Percocet 5/325 Mg Tab) 1 tab PO Q4H PRN PRN Reason: Pain, moderate (4-7) Stop: 12/21/17 13:48 Last Admin: 12/19/17 11:04 Dose: 1 tab Pantoprazole Sodium (Protonix Inj) 20 mg IVP DAILY [facility] Last Admin: 12/19/17 10:56 Dose: 20 mg Potassium Chloride (Potassium Chloride Oral Soln) 20 meq GT DAILY [facility] Last Admin: 12/19/17 10:56 Dose: 20 meq Vancomycin HCl (Vancocin 25 Mg/Ml (Oral Use)) 250 mg PO QID [facility] PRN Reason: Protocol Stop: 12/20/17 19:04 Last Admin: 12/19/17 09:00 Dose: 250 mg - Labs Labs: 12/19/17 06:30 12/19/17 06:30 PT 16.4 SECONDS (9.4-12.5) H 12/11/17 10:00 INR 1.42 (0.93-1.08) H 12/11/17 10:00 APTT 30.3 Seconds (25.1-36.5) 12/11/17 10:00 Attending/Attestation - Attestation I have personally seen and examined this patient.: Yes I have fully participated in the care of the patient.: Yes I have reviewed all pertinent clinical information, including history, physical exam and plan: Yes
[2017-12-16] MEDS: Vancomycin 25 MG/ML PO SCH ×3 (11:55→23:26)
[2017-12-16] MEDS: Potassium Chloride 20 mEq/15 ml LIQ UD GT SCH (11:56)
[2017-12-16] MEDS: Enoxaparin 30 mg Syringe SC SCH (11:56)
[2017-12-16] MEDS: Cefepime 1gm in NS 100ml 1 GM/100 ML BAG IVPB SCH ×2 (12:24→23:24)
--- NOTE | 2017-12-16 12:26 | PN ---
DATE: 12/16/2017 SUBJECTIVE: The patient is in bed in no acute distress, nontoxic, chronically ill, debilitated. PHYSICAL EXAMINATION: VITAL SIGNS: Temperature of 96, blood pressure is 140/50, respiratory rate 20, heart rate of 92. HEENT: Unremarkable. NECK: Supple. LUNGS: Have decreased breath sounds. HEART: Normal S1, S2. ABDOMEN: Soft, nontender. LABORATORY EXAMINATION: Reveals a white count is 25,000, hemoglobin of 9, platelets of 270. Chemistries are noted and urinalysis is noted and microbiology is noted. Review of orders reveals the patient to be on IV Flagyl, p.o. vancomycin and cefepime, which requires renewal, which I will do so. ASSESSMENT AND PLAN: An 87-year-old with history of chronic obstructive lung disease, congestive heart failure, dementia, hypertension, cataract, transient ischemic attack, osteoarthritis, ascending cholangitis, necrotizing fasciitis in left gluteal area, percutaneous endoscopic gastrostomy tube. On this admission, the patient has presented with severe sepsis secondary to pseudomembranous colitis, stage IV decubitus ulcer and acute cholecystitis evident also on the positive HIDA scan. Given the age and the condition of this patient should consider supportive care and conservative management or invasive radiology for a possible cholecystotomy tube. Overall prognosis is poor. Virgil Zayas MD
[2017-12-17] MEDS: Albuterol-Ipratrop 3 mg / 0.5 (3 ml) UD IH SCH ×4 (01:55→19:55)
[2017-12-17] MEDS: metroNIDAZOLE IV 500 mg/100 ml 500 MG/100 ML BAG IVPB SCH ×3 (05:35→22:05)
[2017-12-17 08:02] LABS: BASO # 0.03 K/mm3 (0.0-2.0); BASO % 0.1 % (0.0-3.0); EOS # 0.3 (0.0-0.7); EOS % 1.2 % (1.5-5.0); GRAN # 20.05 (1.4-6.5); GRAN % 86.5 % (50.0-68.0); LYMPH % 8.6 % (22.0-35.0); MEAN CELL VOLUME 73.3 fl (80.0-105.0); MEAN CORPUSCULAR HEMOGLOBIN 23.9 pg (25.0-35.0); MEAN CORPUSCULAR HGB CONC 32.6 g/dl (31.0-37.0); MEAN PLATELET VOLUME 10.2 fl (7.0-11.0); MONO # 0.8 (0.1-0.6); MONO % 3.6 % (1.0-6.0); RBC 4.19 10^6/uL (3.5-6.1); RED CELL DISTRIBUTION WIDTH 23.2 % (11.5-14.5); WHITE BLOOD COUNT 23.2 10^3/ul (4.5-11.0)
[2017-12-17 08:22] LABS: ALB/GLOB RATIO 0.9 (1.1-1.8); ALBUMIN 2.6 g/dL (3.0-4.8); ALT/SGPT 21 U/L (7-56); AST/SGOT 21 U/L (17-59); BLOOD UREA NITROGEN 23 mg/dL (7-21); CALCIUM 7.6 mg/dL (8.4-10.5); GFR AFRICAN-AMERICAN > 60; GFR NON-AFRICAN AMERICAN > 60
[2017-12-17] MEDS: Enoxaparin 30 mg Syringe SC SCH (11:13)
[2017-12-17] MEDS: Cefepime 1gm in NS 100ml 1 GM/100 ML BAG IVPB SCH (11:14)
[2017-12-17] MEDS: Potassium Chloride 20 mEq/15 ml LIQ UD GT SCH (11:15)
[2017-12-17] MEDS: Vancomycin 25 MG/ML PO SCH ×4 (11:17→22:06)
--- NOTE | 2017-12-17 11:21 | CP.PCM.PN ---
<Grant Forman - Last Filed: 12/17/17 11:17> Subjective - Date & Time of Evaluation Date of Evaluation: 12/17/17 Time of Evaluation: 11:17 - Subjective Subjective: Podiatry progress note for Dr. Sr 87 y/o male seen and examined at bedside. Pt is of altered mental status and cannot give true HPI. Pt is alert and nods yes when asked if he has pain to his heels. Multipodus boots not in place as nursing reports patient would not allow them to be put on overnight, dressings C/D/I. Objective - Vital Signs/Intake and Output Vital Signs (last 24 hours): Temp Pulse Resp BP Pulse Ox 97.8 F 81 18 128/20 L 97 12/17/17 06:00 12/17/17 06:00 12/17/17 06:00 12/17/17 06:00 12/17/17 06:00 Intake and Output: 12/17/17 12/17/17 06:59 18:59 Intake Total 1710 1310 Output Total 675 500 Balance 1035 810 - Medications Medications: Current Medications Albuterol/Ipratropium (Duoneb 3 Mg/0.5 Mg (3 Ml) Ud) 3 ml IH [id number] [facility] Last Admin: 12/17/17 07:34 Dose: 3 ml Enoxaparin Sodium (Lovenox) 30 mg SC DAILY [facility] PRN Reason: Protocol Last Admin: 12/16/17 11:56 Dose: 30 mg Metronidazole (Flagyl) 500 mg in 100 mls @ 100 mls/hr IVPB Q8 [facility] PRN Reason: Protocol Stop: 12/20/17 19:03 Last Admin: 12/17/17 05:35 Dose: 100 mls/hr Cefepime HCl (Maxipime 1gm) 1 gm in 100 mls @ 100 mls/hr IVPB Q12 [facility] PRN Reason: Protocol Stop: 12/22/17 22:01 Last Admin: 12/16/17 23:24 Dose: 100 mls/hr Dextrose (Dextrose 5% In Water 1000 Ml) 1,000 mls @ 50 mls/hr IV .Q20H [facility] Losartan Potassium (Cozaar) 50 mg GT QPM [facility] Last Admin: 12/16/17 17:25 Dose: 50 mg Metoprolol Tartrate (Lopressor) 100 mg GT BID [facility] Last Admin: 12/16/17 17:25 Dose: 100 mg Pantoprazole Sodium (Protonix Inj) 20 mg IVP DAILY [facility] Last Admin: 12/16/17 11:56 Dose: 20 mg Potassium Chloride (Potassium Chloride Oral Soln) 20 meq GT DAILY [facility] Last Admin: 12/16/17 11:56 Dose: 20 meq Vancomycin HCl (Vancocin 25 Mg/Ml (Oral Use)) 250 mg PO QID [facility] PRN Reason: Protocol Stop: 12/20/17 19:04 Last Admin: 12/16/17 23:26 Dose: 250 mg - Labs Labs: 12/17/17 06:30 12/17/17 06:30 PT 16.4 SECONDS (9.4-12.5) H 12/11/17 10:00 INR 1.42 (0.93-1.08) H 12/11/17 10:00 APTT 30.3 Seconds (25.1-36.5) 12/11/17 10:00 - Constitutional Appears: Well, Non-toxic, No Acute Distress - Extremities Exam Additional comments: Bilateral lower extremity focused examination: Vasc - DP/PT pulses are non palpable, CFT <3 secs x10, TG warm to warm, pedal hair is absent, no edema or erythema noted. Derm - Left: Heel eschar noted plantar and posterior aspect of the heel, measuring approximately 5.5 cm x 3.0 cm. Proximal aspect of eschar exhibits open ulceration measuring approx 2cm x 1.5cm x 0.2cm. Ulcer exhibits 100% fibronecrotic wound base, with minimal serosanguinous drainage on previous bandage. No gaurav wound erythema, no malodor, no probe to bone, no purulence, no tracking or tunneling noted, no clinical signs of infection Right: superficial necrotic eschar noted on the plantar medial aspect of the heel consistent with deep tissue injury. No open lesions noted. No fluctuance, no bogginess, no clinical signs of infection. Neuro - gross and protective sensation grossly intact Ortho - moderate pain on palpation to bilateral heels - Neurological Exam Neurological Exam: Alert, Awake - Psychiatric Exam Psychiatric exam: Normal Affect, Normal Mood Assessment and Plan - Assessment and Plan (Free Text) Assessment: 87 y/o male with 1) left posteroplantar heel ulceration secondary to pressure and 2) right heel deep tissue injury secondary to pressure Plan: Pt seen and evaluated at bedside Discussed in detail with Dr. Sr Afebrile, WBC - 23.2 X-rays - negative for OM or any acute osseous changes L heel dressed with betadine and Optifoam bandage; R heel with Optifoam bandage for protection Attempted to reapply multipodus boots however patient refused L foot MRI ordered to r/o heel as possible source of infx - pending, wound does not appear clinically infected Continue IV abx Will continue to follow patient and perform local wound care <Valdez Sr - Last Filed: 12/19/17 11:34> Objective - Vital Signs/Intake and Output Vital Signs (last 24 hours): Temp Pulse Resp BP Pulse Ox 98 F 82 16 137/88 96 12/19/17 06:00 12/19/17 10:57 12/19/17 06:00 12/19/17 10:57 12/19/17 06:00 Intake and Output: 12/19/17 12/19/17 06:59 18:59 Intake Total 0 Output Total 1500 Balance -1500 - Medications Medications: Current Medications Acetaminophen (Tylenol 650mg/20.3ml Solution Ud) 650 mg PEG Q6H PRN PRN Reason: Pain, Mild (1-3) Albuterol/Ipratropium (Duoneb 3 Mg/0.5 Mg (3 Ml) Ud) 3 ml IH [id number] [facility] Last Admin: 12/19/17 07:20 Dose: 3 ml Arformoterol Tartrate (Brovana) 15 mcg IH [id number] [facility] Last Admin: 12/19/17 07:20 Dose: 15 mcg Aspirin (Ecotrin) 81 mg PO DAILY [facility] Last Admin: 12/19/17 10:59 Dose: 81 mg Budesonide (Pulmicort Respules) 0.25 mg IH [id number] [facility] Last Admin: 12/19/17 07:20 Dose: 0.25 mg Doxycycline Hyclate (Doryx) 100 mg PO Q12 [facility] PRN Reason: Protocol Enoxaparin Sodium (Lovenox) 30 mg SC DAILY [facility] PRN Reason: Protocol Last Admin: 12/19/17 10:57 Dose: 30 mg Metronidazole (Flagyl) 500 mg in 100 mls @ 100 mls/hr IVPB Q8 [facility] PRN Reason: Protocol Stop: 12/20/17 19:03 Last Admin: 12/19/17 05:13 Dose: 100 mls/hr Cefepime HCl (Maxipime 1gm) 1 gm in 100 mls @ 100 mls/hr IVPB Q12 [facility] PRN Reason: Protocol Stop: 12/22/17 22:01 Last Admin: 12/19/17 10:55 Dose: 100 mls/hr Losartan Potassium (Cozaar) 50 mg GT QPM [facility] Last Admin: 12/18/17 18:14 Dose: 50 mg Metoprolol Tartrate (Lopressor) 100 mg GT BID [facility] Last Admin: 12/19/17 10:57 Dose: 100 mg Oxycodone/Acetaminophen (Percocet 5/325 Mg Tab) 1 tab PO Q4H PRN PRN Reason: Pain, moderate (4-7) Stop: 12/21/17 13:48 Last Admin: 12/19/17 11:04 Dose: 1 tab Pantoprazole Sodium (Protonix Inj) 20 mg IVP DAILY [facility] Last Admin: 12/19/17 10:56 Dose: 20 mg Potassium Chloride (Potassium Chloride Oral Soln) 20 meq GT DAILY [facility] Last Admin: 12/19/17 10:56 Dose: 20 meq Vancomycin HCl (Vancocin 25 Mg/Ml (Oral Use)) 250 mg PO QID [facility] PRN Reason: Protocol Stop: 12/20/17 19:04 Last Admin: 12/19/17 09:00 Dose: 250 mg - Labs Labs: 12/19/17 06:30 12/19/17 06:30 PT 16.4 SECONDS (9.4-12.5) H 12/11/17 10:00 INR 1.42 (0.93-1.08) H 12/11/17 10:00 APTT 30.3 Seconds (25.1-36.5) 12/11/17 10:00 Attending/Attestation - Attestation I have personally seen and examined this patient.: Yes I have fully participated in the care of the patient.: Yes I have reviewed all pertinent clinical information, including history, physical exam and plan: Yes
--- NOTE | 2017-12-17 11:55 | CP.PCM.PN ---
Subjective - Date & Time of Evaluation Date of Evaluation: 12/17/17 Time of Evaluation: 11:55 - Subjective Subjective: Nephrology Consultation Note: Assessment: Stable Fever with C diff diarrhoea Acute Kidney Injury (N17.9) likely due to pre-renal state Hypokalemia, hypernatremia Hypoalbuminemia, pleural effusion, malnourished state (BMI 14.6 and hypoalbuminemia) COPD, TIA/CVA, hx of peg tube, sacral decubitus ulcer, CHF, dementia, hypertension, ADIEL and C diff Anemia cholecystitis Plan No acute need for renal replacement therapy at this time. renal function stable Hypertension control with meds as ordered. resume losartan 50 mg/day. increased lopressor 100 mg bid Monitor Input/Output, daily weights and renal function with basic metabolic panel continue with IVF but as D5W @ 50 ml/hr due to hypernatremia. pt started on tube feeds with water flush 200 ml every 4-6 hrs. would be able to stop IVF once hypernatremia better GI, surgery following supplements lytes as needed. KCL 20 meq/day added Dose meds/antibiotics for improved GFR. Avoid nephrotoxins/NSAIDs Glycemic control Further work up/management as per primary team Thanks for allowing me to participate in care of your patient. Will follow patient with you. Please call if any Qs. had d/w team Dr Wilmar Garrison Office: [phone] Chief Complaint; unable HPI: Pt is a 87 M with hx of COPD, TIA/CVA, hx of peg tube, sacral decubitus ulcer, CHF, dementia, hypertension, ADIEL and C diff presented with complaints of fever from [place] and being worked up. renal consult for ADIEL no known OTC/herbal meds or NSAIDs No recent iodinated contrast exposure. Noted episodes of low BP (101/57). ROS: unable to obtain from pt Physical Examination: General Appearance: frail elderly male malnourished, in no acute respiratory distress, Vitals reviewed and noted as below Head; Atraumatic, normocephalic ENT: no ulcers no thrush. Tongue is midline/dry . Oropharynx: no rash EYES: Pupils are equal, round and reactive to light accommodation. Eye muscles and extraocular movement intact. Sclera is anicteric. Neck; supple no lymphadenopathy, no thyromegaly or bruit Lungs: Normal respiratory rate/effort. Breath sounds bilateral equal and clear anteriorly Heart: Normal rate. s1s2 normal. No rub or gallop. Extremities: no edema. No varicose veins Neurological: Patient is alert, awake and dementia Skin: Warm and dry. Normal turgor. No rash. Palpitation: Normal elasticity for age Abdomen: Abdomen is soft. Bowel sounds +. There is mild abdominal tenderness, no guarding/rigidity no organomegaly. has PEG tube Psych: unable MSK: no joint tenderness or swelling. Digits and nails normal, no deformity : kidney or bladder not palpable Labs/imaging reviewed. Past medical history, past surgical history, family history, social history, allergy reviewed and noted as below Family hx: no hx of CKD. Rest non-contributory renal imaing WNL UA 100 protein and trace ketone Objective - Vital Signs/Intake and Output Vital Signs (last 24 hours): Temp Pulse Resp BP Pulse Ox 97.8 F 81 18 128/20 L 97 12/17/17 06:00 12/17/17 06:00 12/17/17 06:00 12/17/17 06:00 12/17/17 06:00 Intake and Output: 12/17/17 12/17/17 06:59 18:59 Intake Total 1710 1310 Output Total 675 500 Balance 1035 810 - Medications Medications: Current Medications Albuterol/Ipratropium (Duoneb 3 Mg/0.5 Mg (3 Ml) Ud) 3 ml IH [id number] [facility] Last Admin: 12/17/17 07:34 Dose: 3 ml Enoxaparin Sodium (Lovenox) 30 mg SC DAILY [facility] PRN Reason: Protocol Last Admin: 12/17/17 11:13 Dose: 30 mg Metronidazole (Flagyl) 500 mg in 100 mls @ 100 mls/hr IVPB Q8 [facility] PRN Reason: Protocol Stop: 12/20/17 19:03 Last Admin: 12/17/17 05:35 Dose: 100 mls/hr Cefepime HCl (Maxipime 1gm) 1 gm in 100 mls @ 100 mls/hr IVPB Q12 [facility] PRN Reason: Protocol Stop: 12/22/17 22:01 Last Admin: 12/17/17 11:14 Dose: 100 mls/hr Dextrose (Dextrose 5% In Water 1000 Ml) 1,000 mls @ 50 mls/hr IV .Q20H [facility] Losartan Potassium (Cozaar) 50 mg GT QPM [facility] Last Admin: 12/16/17 17:25 Dose: 50 mg Metoprolol Tartrate (Lopressor) 100 mg GT BID [facility] Last Admin: 12/17/17 11:14 Dose: 100 mg Pantoprazole Sodium (Protonix Inj) 20 mg IVP DAILY [facility] Last Admin: 12/17/17 11:15 Dose: 20 mg Potassium Chloride (Potassium Chloride Oral Soln) 20 meq GT DAILY [facility] Last Admin: 12/17/17 11:15 Dose: 20 meq Vancomycin HCl (Vancocin 25 Mg/Ml (Oral Use)) 250 mg PO QID [facility] PRN Reason: Protocol Stop: 12/20/17 19:04 Last Admin: 12/17/17 11:17 Dose: 250 mg - Labs Labs: 12/17/17 06:30 12/17/17 06:30 PT 16.4 SECONDS (9.4-12.5) H 12/11/17 10:00 INR 1.42 (0.93-1.08) H 12/11/17 10:00 APTT 30.3 Seconds (25.1-36.5) 12/11/17 10:00
--- NOTE | 2017-12-17 13:54 | PN ---
DATE: 12/17/2017 SUBJECTIVE: The patient is seen in bed, in no acute distress, nontoxic. PHYSICAL EXAMINATION: VITAL SIGNS: On exam, the patient's temperature is 98, blood pressure is 120/20, respiratory rate of 20. HEENT: Examination of HEENT is unremarkable. NECK: Supple. LUNGS: Have decreased breath sounds. HEART: Normal S1, S2. ABDOMEN: Soft, nontender. LABORATORY DATA: Laboratory examination reveals a white count of 23,000, hemoglobin of 10, platelets of 258. Chemistries reveals a BUN of 23, creatinine of 0.8. Urinalysis is noted. Microbiology reveals yeast in the urine. Blood cultures are negative. The patient had a HIDA scan, which was positive. ASSESSMENT AND PLAN: An 87-year-old with chronic obstructive lung disease; congestive heart failure; dementia; hypertension; cataract; transient ischemic attack; osteoarthritis; ascending cholangitis; necrotizing fasciitis, left gluteal area; percutaneous endoscopic gastrostomy tube; was admitted with severe sepsis secondary to pseudomembranous colitis, stage IV decubitus ulcer and acute cholecystitis evident on a positive HIDA scan and the patient is on IV Flagyl, p.o. vancomycin, on IV Maxipime. Given the patient's condition and age, supportive care, conservative therapy, possible Invasive Radiology review for possible cholecystotomy placement. Overall prognosis is quite poor. Virgil Zayas MD
--- NOTE | 2017-12-17 16:41 | CP.PCM.PN ---
<Christina Alvarez - Last Filed: 12/17/17 16:45> Subjective - Date & Time of Evaluation Date of Evaluation: 12/17/17 Time of Evaluation: 13:40 - Subjective Subjective: PGY5 PGY5 GI Follow-up Pt seen and examined bedside RUQ abd pain no sig overnight events ROS: 12 point ROS conducted, neg other than above Objective - Vital Signs/Intake and Output Vital Signs (last 24 hours): Temp Pulse Resp BP Pulse Ox 97.9 F 71 18 156/87 H 97 12/17/17 14:00 12/17/17 14:00 12/17/17 14:00 12/17/17 14:00 12/17/17 14:00 Intake and Output: 12/17/17 12/17/17 06:59 18:59 Intake Total 1710 1310 Output Total 675 500 Balance 1035 810 - Medications Medications: Current Medications Albuterol/Ipratropium (Duoneb 3 Mg/0.5 Mg (3 Ml) Ud) 3 ml IH [id number] [facility] Last Admin: 12/17/17 13:32 Dose: Not Given Enoxaparin Sodium (Lovenox) 30 mg SC DAILY [facility] PRN Reason: Protocol Last Admin: 12/17/17 11:13 Dose: 30 mg Metronidazole (Flagyl) 500 mg in 100 mls @ 100 mls/hr IVPB Q8 [facility] PRN Reason: Protocol Stop: 12/20/17 19:03 Last Admin: 12/17/17 15:36 Dose: 100 mls/hr Cefepime HCl (Maxipime 1gm) 1 gm in 100 mls @ 100 mls/hr IVPB Q12 [facility] PRN Reason: Protocol Stop: 12/22/17 22:01 Last Admin: 12/17/17 11:14 Dose: 100 mls/hr Dextrose (Dextrose 5% In Water 1000 Ml) 1,000 mls @ 50 mls/hr IV .Q20H [facility] Losartan Potassium (Cozaar) 50 mg GT QPM [facility] Last Admin: 12/16/17 17:25 Dose: 50 mg Metoprolol Tartrate (Lopressor) 100 mg GT BID [facility] Last Admin: 12/17/17 11:14 Dose: 100 mg Pantoprazole Sodium (Protonix Inj) 20 mg IVP DAILY [facility] Last Admin: 12/17/17 11:15 Dose: 20 mg Potassium Chloride (Potassium Chloride Oral Soln) 20 meq GT DAILY [facility] Last Admin: 12/17/17 11:15 Dose: 20 meq Vancomycin HCl (Vancocin 25 Mg/Ml (Oral Use)) 250 mg PO QID [facility] PRN Reason: Protocol Stop: 12/20/17 19:04 Last Admin: 12/17/17 11:17 Dose: 250 mg - Labs Labs: 12/17/17 06:30 12/17/17 06:30 PT 16.4 SECONDS (9.4-12.5) H 12/11/17 10:00 INR 1.42 (0.93-1.08) H 12/11/17 10:00 APTT 30.3 Seconds (25.1-36.5) 12/11/17 10:00 - Constitutional Appears: No Acute Distress, Chronically Ill - Head Exam Head Exam: ATRAUMATIC, NORMOCEPHALIC - Eye Exam Eye Exam: Normal appearance - ENT Exam ENT Exam: Mucous Membranes Moist, Normal Exam - Neck Exam Neck Exam: Normal Inspection - Respiratory Exam Respiratory Exam: Clear to Ausculation Bilateral, NORMAL BREATHING PATTERN. absent: Rales, Rhonchi, Wheezes - Cardiovascular Exam Cardiovascular Exam: REGULAR RHYTHM, +S1, +S2 - GI/Abdominal Exam GI & Abdominal Exam: Soft, Normal Bowel Sounds. absent: Guarding, Rigid, Tenderness, Organomegaly - Extremities Exam Extremities Exam: absent: Joint Swelling, Pedal Edema - Back Exam Back Exam: CVA tenderness (R) - Neurological Exam Neurological Exam: Alert, Awake, Oriented x3 - Psychiatric Exam Psychiatric exam: Normal Affect, Normal Mood - Skin Skin Exam: Dry, Intact, Normal Color, Warm Assessment and Plan - Assessment and Plan (Free Text) Assessment: This is an 87 yo M with PMH of CHF, CVA, COPD, dementia, HTN, CKD, hx of PEG tube, and hx of hydropneumothorax who was brought in by ambulance from [facility]) due to fever since yesterday. He was being treated for C diff infectious at the [place], and GI is being consulted for the C Diff infection + Peg tube/abd tenderness. He has also been found to have enlarged GB with cholelithiasis present, acute cholecystitis Plan: -Recommend PTC at this time from GI stand point -IR already consulted -Surgery on board -continue IV ABx -blood cultures pending -HIDA +: acute cholecystitis vs obstruction D/W Dr. Valerio - <Seth Valerio V - Last Filed: 12/18/17 00:45> Objective - Vital Signs/Intake and Output Vital Signs (last 24 hours): Temp Pulse Resp BP Pulse Ox 98.3 F 76 20 133/62 96 12/17/17 21:36 12/17/17 21:36 12/17/17 21:36 12/17/17 21:36 12/17/17 21:36 Intake and Output: 12/17/17 12/18/17 18:59 06:59 Intake Total 1310 0 Output Total 575 1275 Balance 735 -1275 - Medications Medications: Current Medications Albuterol/Ipratropium (Duoneb 3 Mg/0.5 Mg (3 Ml) Ud) 3 ml IH [id number] [facility] Last Admin: 12/17/17 19:55 Dose: 3 ml Aspirin (Ecotrin) 81 mg PO DAILY [facility] Enoxaparin Sodium (Lovenox) 30 mg SC DAILY [facility] PRN Reason: Protocol Last Admin: 12/17/17 11:13 Dose: 30 mg Metronidazole (Flagyl) 500 mg in 100 mls @ 100 mls/hr IVPB Q8 [facility] PRN Reason: Protocol Stop: 12/20/17 19:03 Last Admin: 12/17/17 22:05 Dose: 100 mls/hr Cefepime HCl (Maxipime 1gm) 1 gm in 100 mls @ 100 mls/hr IVPB Q12 [facility] PRN Reason: Protocol Stop: 12/22/17 22:01 Last Admin: 12/17/17 11:14 Dose: 100 mls/hr Dextrose (Dextrose 5% In Water 1000 Ml) 1,000 mls @ 50 mls/hr IV .Q20H [facility] Last Admin: 12/17/17 17:55 Dose: 50 mls/hr Losartan Potassium (Cozaar) 50 mg GT QPM [facility] Last Admin: 12/17/17 17:56 Dose: 50 mg Metoprolol Tartrate (Lopressor) 100 mg GT BID [facility] Last Admin: 12/17/17 17:55 Dose: 100 mg Pantoprazole Sodium (Protonix Inj) 20 mg IVP DAILY [facility] Last Admin: 12/17/17 11:15 Dose: 20 mg Potassium Chloride (Potassium Chloride Oral Soln) 20 meq GT DAILY [facility] Last Admin: 12/17/17 11:15 Dose: 20 meq Vancomycin HCl (Vancocin 25 Mg/Ml (Oral Use)) 250 mg PO QID [facility] PRN Reason: Protocol Stop: 12/20/17 19:04 Last Admin: 12/17/17 22:06 Dose: 250 mg - Labs Labs: 12/17/17 06:30 12/17/17 06:30 PT 16.4 SECONDS (9.4-12.5) H 12/11/17 10:00 INR 1.42 (0.93-1.08) H 12/11/17 10:00 APTT 30.3 Seconds (25.1-36.5) 12/11/17 10:00 Attending/Attestation - Attestation I have personally seen and examined this patient.: Yes I have fully participated in the care of the patient.: Yes I have reviewed all pertinent clinical information, including history, physical exam and plan: Yes Notes (Text): This is an addendum to GI progress report dictated by the GI Fellow.The patient was seen and examined earlier. Medical records, lab studies, imagings were reviewed. Last 24 hours events reviewed. Agreed with the above treatment plan as outlined in GI Fellow 's notes the with the addition of the following On examination abdomen soft mild tenderness in the right upper quadrant Nonvisualized gallbladder in HIDA We will discuss with the surgical team regarding cholecystostomy Patient has multiple other posible sourses for SIRS decubitus ulcers, atelectasis versus infiltrat history of ischemic colitis in the past involving the right colon. 12/18/17 00:41
--- NOTE | 2017-12-17 20:53 | MRI ---
MRI left heel History: Ulcer. Evaluate for osteomyelitis. Comparison: None available. Technique: Multi-echo multiplanar sequences were performed through the left hindfoot without the use of intravenous contrast. Findings: Reticulation and edema within the circumferential subcutaneous soft tissues. Prominent ulceration at the level of the posterior heel extending to the subchondral bone. Within the posterior calcaneus at the level of the ulceration, there is some patchy increased STIR signal with some minimal patchy decreased T1 signal. These findings may represent an early acute and or developing acute osteomyelitis. Clinical correlation. Increased signal seen within the distal Achilles tendon approximately 1.6 centimeters from its insertion on the posterior calcaneus suggestive for a moderate tendinopathy. Plantar fascia is preserved. 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 Small ankle joint effusion. Degenerative changes noted at the talonavicular joint space dorsally. Prominent degenerative changes noted at the anterior aspect of the calcaneus near its articulation with the cuboid bone with decreased T1 signal and increased STIR signal suggestive for osteochondral change. Additional increased signal with decreased T1 signal and increased STIR signal noted at the anterior aspect of the navicular bone also suggestive for osteochondral change. Additional prominent degenerative changes noted in the midfoot. Mild tenosynovitis of the posterior tibial tendon sheath. Remainder of the medial flexor tendon sheaths appear preserved. Peroneal tendons appear preserved. Some mild reactive edema noted within the distal fibula laterally which may represent failure of fat suppression. Clinical correlation. Deltoid ligament is preserved. Impression: Reticulation and edema within the circumferential subcutaneous soft tissues. 1. Prominent ulceration at the level of the posterior heel extending to the subchondral bone. Within the posterior calcaneus at the level of the ulceration, there is some patchy increased STIR signal with some minimal patchy decreased T1 signal. These findings may represent an early acute and or developing acute osteomyelitis. Clinical correlation. 2. Increased signal seen within the distal Achilles tendon approximately 1.6 centimeters from its insertion on the posterior calcaneus suggestive for a moderate tendinopathy. 3. 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 4. Small ankle joint effusion. 5. Degenerative changes noted at the talonavicular joint space dorsally. Prominent degenerative changes noted at the anterior aspect of the calcaneus near its articulation with the cuboid bone with decreased T1 signal and increased STIR signal suggestive for osteochondral change. Additional increased signal with decreased T1 signal and increased STIR signal noted at the anterior aspect of the navicular bone also suggestive for osteochondral change. Additional prominent degenerative changes noted in the midfoot. 6. Mild tenosynovitis of the posterior tibial tendon sheath. Remainder of the medial flexor tendon sheaths appear preserved. 7. Some mild reactive edema noted within the distal fibula laterally which may represent failure of fat suppression. Clinical correlation. These findings were preliminarily reported at 2:55 p.m. on 12/17/[address] Ilya Alvarado from [facility].
--- NOTE | 2017-12-18 01:49 | PN ---
DATE: 12/15/2017 SUBJECTIVE: The patient is more awake. He denied any pain. Talking to him in [place], he denies any pain. No abdominal pain. No chest pain and no headaches. No reported vomiting and no other complaints. PHYSICAL EXAMINATION: VITAL SIGNS: On 12/15/2017, temperature 97.7, heart rate 79, blood pressure 139/76, respirations 20, saturation 100%. HEAD AND NECK: Normal. NECK: No JVD. No thyromegaly. CHEST: Clear bilaterally. CARDIAC: First sound and second sound normal. No murmur, rub or gallop. ABDOMEN: Soft, nontender. EXTREMITIES: Shows no edema. NEUROLOGICAL: The patient is dysphasic and has weakness in both lower extremities, left more than right. LABORATORY STUDIES: His white count on 12/15/2017 went up to 28.3000, hemoglobin 10, hematocrit 31, platelets 279. His chemistry noted for sodium 154, potassium is 3.9, chloride 111, bicarb 25, BUN 26, creatinine 1. Blood glucose 160, calcium 8.3 and liver function tests are normal. Alkaline phosphatase 176. Urinalysis with small leukocytes, 5-10 wbc's. The patient also had C. diff. Repeat analysis and was positive C. diff. Urine culture shows yeast. Blood culture is negative. IMPRESSION AND PLAN: 1. Clostridium difficile colitis. Continue Flagyl plus vancomycin p.o. 2. Large decubitus ulcer, stage IV. Continue current therapy, wound VAC. There is no much drainage, but continue current treatment. 3. Leukocytosis, getting worse. There is a question about gallbladder wall thickening. We consider HIDA scan, discussed with GI, Dr. Valerio. Discussed with Dr. Vizcaino, surgical consult. Discussed with the family about any interventions. Because of his high risk, we will consider non-invasive therapy including antibiotics if HIDA scan is positive. We will continue current therapy for now. The patient getting Maxipime as per Infectious Disease consultation and discussions, already getting Maxipime 1 g IV every 12 hours for now. 4. Dementia, cerebrovascular accident. Plan is to resume baby aspirin 81 mg daily. 5. Hypertension. Continue Cozaar, continue DuoNeb, Lopressor 100 mg b.i.d. for blood pressures and we will continue Protonix 20 mg IV daily plus Lovenox 30 mg subcutaneous daily for deep venous thrombosis prophylaxis. The patient is DNR/DNI. Discussed with the family, and we will follow up clinically. Cody Aguilar MD
[2017-12-18] MEDS: Albuterol-Ipratrop 3 mg / 0.5 (3 ml) UD IH SCH ×4 (02:30→20:46)
--- NOTE | 2017-12-18 02:37 | PN ---
DATE: 12/16/2017 SUBJECTIVE: The patient seen lying in bed, next to the nurse, is comfortable. He is moving his hands. He is more awake, more alert, respond to questions. He has no abdominal pain. No chest pain. No headache. No vomiting. Reports he still in decreased because the patient getting IV fluids at 50 mL per IV per hour, but otherwise the patient seems clinically better. PHYSICAL EXAMINATION: VITAL SIGNS: On 12/16/2017, temperature 97.3, heart rate 72, blood pressure is 145/98, respiration 18, saturation 98%. HEAD AND NECK: Normal. No JVD, no thyromegaly. CHEST: Clear bilaterally. CARDIAC: First sound and second sound is normal. No murmur, rub or gallop. ABDOMEN: Soft. Nontender. PEG site is clean. EXTREMITIES: No edema. NEUROLOGICAL: He does have dysphagia with left-sided weakness, bedridden. Heel cushions in both heels. LABORATORY STUDIES: As follows, white count 25.5 which is down from 28.3, hemoglobin 9.9, hematocrit 31, platelets 270. Chemistry shows sodium 149, potassium 4, chloride 115, bicarb 24. BUN 25, creatinine is 1. Blood sugar 120, calcium 8. Liver function test is normal. Alkaline phosphatase 169. Urinalysis is 5 to 10 wbc's. PT and PTT is normal. PT/INR 1.42. IMPRESSION AND PLAN: 1. Leukocytosis, etiology sepsis secondary to sacral decubitus infection, possible cholecystitis and urinary tract infection. Continue current antibiotics. The patient started on Maxipime with decrease in WBCs which seems improving. White count is better. Clinically, the patient seems better. He still have high risk and still have poor prognosis, but he is heading in the right direction. 2. Anemia, chronic continue monitor his H and H. He got already 2 units of blood transfusion 2 to 3 days ago, since then he seems stable. Continue Lovenox 30 mg subcu daily for prevention of deep venous thrombosis and Protonix 20 IV daily. 3. The patient has Clostridium difficile colitis. Continue Flagyl and vancomycin p.o., seems doing better. 4. The patient has hypernatremia, dehydration, continue dextrose at 50 mL per hour plus feeding . Repeating labs. Seems doing better, improving slowly hypernatremia. He is getting better. Continue to follow up with the senior environmental consultant, Dr. Mcdowell, and follow up clinically. 5. Hypertension. Continue Cozaar 50 mg daily and Lopressor 100 mg b.i.d. Continue current therapy. Follow up clinically. Cody Aguilar MD
[2017-12-18] MEDS: Vancomycin 25 MG/ML PO SCH ×5 (03:10→21:25)
[2017-12-18] MEDS: Cefepime 1gm in NS 100ml 1 GM/100 ML BAG IVPB SCH ×3 (04:28→21:24)
[2017-12-18] MEDS: metroNIDAZOLE IV 500 mg/100 ml 500 MG/100 ML BAG IVPB SCH ×3 (05:52→22:39)
[2017-12-18 07:18] LABS: BASO # 0.01 K/mm3 (0.0-2.0); EOS # 0.1 (0.0-0.7); EOS % 0.6 % (1.5-5.0); GRAN % 89.7 % (50.0-68.0); HEMOGLOBIN 9.8 g/dL (14.0-18.0); LYMPH # 1.4 (1.2-3.4); LYMPH % 6.2 % (22.0-35.0); MEAN CELL VOLUME 72.5 fl (80.0-105.0); MEAN CORPUSCULAR HEMOGLOBIN 23.8 pg (25.0-35.0); MEAN CORPUSCULAR HGB CONC 32.9 g/dl (31.0-37.0); MONO # 0.8 (0.1-0.6); MONO % 3.5 % (1.0-6.0); PLATELET COUNT 232 10^3/uL (120.0-450.0); RBC 4.11 10^6/uL (3.5-6.1); RED CELL DISTRIBUTION WIDTH 23.4 % (11.5-14.5); WHITE BLOOD COUNT 23.1 10^3/ul (4.5-11.0)
[2017-12-18 07:24] LABS: ALB/GLOB RATIO 0.9 (1.1-1.8); ALBUMIN 2.5 g/dL (3.0-4.8); ALT/SGPT 22 U/L (7-56); AST/SGOT 20 U/L (17-59); BLOOD UREA NITROGEN 19 mg/dL (7-21); CALCIUM 7.5 mg/dL (8.4-10.5); GFR AFRICAN-AMERICAN > 60; GFR NON-AFRICAN AMERICAN > 60
[2017-12-18] MEDS ORDERED: Magnesium Sulfate 1 gm in D5W 1 GM/100 ML BAG IVPB ONE (07:52)
--- NOTE | 2017-12-18 08:09 | CP.PCM.PN ---
Subjective - Date & Time of Evaluation Date of Evaluation: 12/18/17 Time of Evaluation: 08:05 - Subjective Subjective: General Surgery Progress Note for Dr. Vizcaino Patient seen and examined at bedside this am. Patient still somnolent, responds to yes/no questions. Wound vac in place and draining appropriately. Pt shakes head to questions about pain, however nods upon physical exam in the LLQ. Objective - Vital Signs/Intake and Output Vital Signs (last 24 hours): Temp Pulse Resp BP Pulse Ox 98.3 F 76 20 133/62 96 12/17/17 21:36 12/17/17 21:36 12/17/17 21:36 12/17/17 21:36 12/17/17 21:36 Intake and Output: 12/18/17 12/18/17 06:59 18:59 Intake Total 940 Output Total 3475 Balance -2535 - Medications Medications: Current Medications Albuterol/Ipratropium (Duoneb 3 Mg/0.5 Mg (3 Ml) Ud) 3 ml IH [id number] [facility] Last Admin: 12/18/17 07:20 Dose: 3 ml Aspirin (Ecotrin) 81 mg PO DAILY [facility] Enoxaparin Sodium (Lovenox) 30 mg SC DAILY [facility]IE PRN Reason: Protocol Last Admin: 12/17/17 11:13 Dose: 30 mg Metronidazole (Flagyl) 500 mg in 100 mls @ 100 mls/hr IVPB Q8 [facility]IE PRN Reason: Protocol Stop: 12/20/17 19:03 Last Admin: 12/18/17 05:52 Dose: 100 mls/hr Cefepime HCl (Maxipime 1gm) 1 gm in 100 mls @ 100 mls/hr IVPB Q12 [facility]IE PRN Reason: Protocol Stop: 12/22/17 22:01 Last Admin: 12/18/17 04:28 Dose: 100 mls/hr Dextrose (Dextrose 5% In Water 1000 Ml) 1,000 mls @ 50 mls/hr IV .Q20H [facility] Last Admin: 12/17/17 17:55 Dose: 50 mls/hr Magnesium Sulfate/Dextrose (Magnesium Sulfate 1 Gm/100 Ml D5w) 1 gm in 100 mls @ 100 mls/hr IVPB ONCE ONE Stop: 12/18/17 08:51 Losartan Potassium (Cozaar) 50 mg GT QPM [facility] Last Admin: 12/17/17 17:56 Dose: 50 mg Metoprolol Tartrate (Lopressor) 100 mg GT BID [facility] Last Admin: 12/17/17 17:55 Dose: 100 mg Pantoprazole Sodium (Protonix Inj) 20 mg IVP DAILY [facility] Last Admin: 12/17/17 11:15 Dose: 20 mg Potassium Chloride (Potassium Chloride Oral Soln) 20 meq GT DAILY [facility] Last Admin: 12/17/17 11:15 Dose: 20 meq Vancomycin HCl (Vancocin 25 Mg/Ml (Oral Use)) 250 mg PO QID [facility] PRN Reason: Protocol Stop: 12/20/17 19:04 Last Admin: 12/18/17 03:10 Dose: 250 mg - Labs Labs: 12/18/17 06:30 12/18/17 06:30 PT 16.4 SECONDS (9.4-12.5) H 12/11/17 10:00 INR 1.42 (0.93-1.08) H 12/11/17 10:00 APTT 30.3 Seconds (25.1-36.5) 12/11/17 10:00 - Constitutional Appears: Well, Non-toxic, Chronically Ill - Head Exam Head Exam: NORMOCEPHALIC - ENT Exam ENT Exam: Mucous Membranes Dry - Respiratory Exam Respiratory Exam: Clear to Ausculation Bilateral, NORMAL BREATHING PATTERN - Cardiovascular Exam Cardiovascular Exam: REGULAR RHYTHM - GI/Abdominal Exam GI & Abdominal Exam: Soft, Tenderness, Hypoactive Bowel Sounds. absent: Firm, Guarding, Mass, Rebound Additional comments: Gastrostomy tube in place. No surrounding erythema noted. - Extremities Exam Additional comments: Unstageable L heel decubitus ulcer with tenderness to palpation and surrounding erythema. Discoloration and ecchymosis of R heel concerning for deep tissue injury, no crepitus, fluctuance or erythema noted. - Back Exam Back Exam: absent: CVA tenderness (L), CVA tenderness (R) - Psychiatric Exam Psychiatric exam: Flat Affect - Skin Additional comments: 15cm x 10cm x 1 cm stage 4 decubitus ulcer. Wound Vac in place Assessment and Plan - Assessment and Plan (Free Text) Assessment: 87 y/o M with leukocytosis, sacral decubitus and possible cholecystitis. Plan: - Patient is a poor surgical candidate due to prior history of CHF, CVA, COPD and dementia - Primary does not want cholecystotomy tube. - Wound vac in place over sacral decubitus ulcer. change in 3 days - air mattress, turn q 2 hours - continue abx per ID recs - f/u GI recs - Discussed plan with Dr. Carrillo Nash PGY1
[2017-12-18] MEDS ORDERED: Acetaminophen 650mg/20.3ml solution UD PEG PRN (09:07)
[2017-12-18] MEDS: Enoxaparin 30 mg Syringe SC SCH (09:41)
[2017-12-18] MEDS: Potassium Chloride 20 mEq/15 ml LIQ UD GT SCH (09:47)
--- NOTE | 2017-12-18 11:06 | CP.PCM.PN ---
Subjective - Date & Time of Evaluation Date of Evaluation: 12/18/17 Time of Evaluation: 08:40 - Subjective Subjective: GI Progress Note for Dr. Teodoro Webber, PGY-3 Patient seen and examined at bedside. Obtunded today, not opening eyes to verbal or physical stimuli, only briefly to painful stimuli (i.e. sternal rub), very ill-appearing as compared to prior exams. Not following commands, non- verbal. As per notes from PMD over the weekend, patient made DNR/DNI as per family. Objective - Vital Signs/Intake and Output Vital Signs (last 24 hours): Temp Pulse Resp BP Pulse Ox 97.4 F L 88 20 117/49 L 99 12/18/17 06:00 12/18/17 09:50 12/18/17 06:00 12/18/17 09:50 12/18/17 06:00 Intake and Output: 12/18/17 12/18/17 06:59 18:59 Intake Total 940 Output Total 3475 Balance -2535 - Medications Medications: Current Medications Acetaminophen (Tylenol 650mg/20.3ml Solution Ud) 650 mg PEG Q6H PRN PRN Reason: Pain, Mild (1-3) Albuterol/Ipratropium (Duoneb 3 Mg/0.5 Mg (3 Ml) Ud) 3 ml IH [id number] [facility] Last Admin: 12/18/17 07:20 Dose: 3 ml Aspirin (Ecotrin) 81 mg PO DAILY [facility] Last Admin: 12/18/17 09:50 Dose: 81 mg Enoxaparin Sodium (Lovenox) 30 mg SC DAILY [facility]IE PRN Reason: Protocol Last Admin: 12/18/17 09:41 Dose: 30 mg Metronidazole (Flagyl) 500 mg in 100 mls @ 100 mls/hr IVPB Q8 [facility]IE PRN Reason: Protocol Stop: 12/20/17 19:03 Last Admin: 12/18/17 05:52 Dose: 100 mls/hr Cefepime HCl (Maxipime 1gm) 1 gm in 100 mls @ 100 mls/hr IVPB Q12 [facility]IE PRN Reason: Protocol Stop: 12/22/17 22:01 Last Admin: 12/18/17 09:47 Dose: 100 mls/hr Dextrose (Dextrose 5% In Water 1000 Ml) 1,000 mls @ 50 mls/hr IV .Q20H [facility] Last Admin: 12/18/17 09:37 Dose: 50 mls/hr Losartan Potassium (Cozaar) 50 mg GT QPM [facility] Last Admin: 12/17/17 17:56 Dose: 50 mg Metoprolol Tartrate (Lopressor) 100 mg GT BID [facility] Last Admin: 12/18/17 09:50 Dose: Not Given Pantoprazole Sodium (Protonix Inj) 20 mg IVP DAILY [facility] Last Admin: 12/18/17 09:45 Dose: 20 mg Potassium Chloride (Potassium Chloride Oral Soln) 20 meq GT DAILY [facility] Last Admin: 12/18/17 09:47 Dose: 20 meq Vancomycin HCl (Vancocin 25 Mg/Ml (Oral Use)) 250 mg PO QID [facility] PRN Reason: Protocol Stop: 12/20/17 19:04 Last Admin: 12/18/17 09:44 Dose: 250 mg - Labs Labs: 12/18/17 06:30 12/18/17 06:30 PT 16.4 SECONDS (9.4-12.5) H 12/11/17 10:00 INR 1.42 (0.93-1.08) H 12/11/17 10:00 APTT 30.3 Seconds (25.1-36.5) 12/11/17 10:00 - Additional Findings Additional findings: - Constitutional Appears: Non-toxic, No Acute Distress, Chronically Ill, Obtunded - Head Exam Head Exam: ATRAUMATIC, NORMAL INSPECTION, NORMOCEPHALIC - Eye Exam Eye Exam: absent: Conjunctival injection, Scleral icterus, EOMI (not following commands for EOMI, minimal appreciable spontaneous movements with eyelids held open) Pupil Exam: absent: Fixed, Irregular - ENT Exam ENT Exam: Mucous Membranes Dry - Neck Exam Neck exam: Negative for: Lymphadenopathy, Thyromegaly - Respiratory Exam Respiratory Exam: Mildly Decreased Breath Sounds otherwise CTAB, NORMAL BREATHING PATTERN. absent: Accessory Muscle Use, Prolonged Expiratory Phase, Rales, Rhonchi, Wheezes, Respiratory Distress, Stridor Additional comments: Not following commands, so no deep breathing for auscultation, limits exam - Cardiovascular Exam Cardiovascular Exam: RRR, +S1, +S2. absent: Bradycardia, Irregular Rhythm, JVD - GI/Abdominal Exam GI & Abdominal Exam: Normal Bowel Sounds, Freely mobile PEG tube, RUQ tenderness to palpation (reacts to palpation at this site). absent: Diminished Bowel Sounds, Distended, Firm, Guarding, Hyperactive Bowel Sounds, Hypoactive Bowel Sounds Additional comments: PEG tube in place, no appreciable surrounding erythema or induration, not warm to touch, no acute reaction to deep palpation, no bloody or purulent discharge from the tube or surrounding area appreciated - Extremities Exam Extremities exam: Positive for: normal inspection, pedal pulses present. Negative for: calf tenderness, joint swelling, pedal edema, tenderness - Neurological Exam Obtunded, no appreciable spontaneous movements, GCS 9 ([id number]) - Psychiatric Exam Demented, non-verbal, moans to pain - Skin Skin Exam: Dry, Intact, Normal Color, Warm Assessment and Plan - Assessment and Plan (Free Text) Assessment: This is an 87 yo M with PMH of CHF, CVA, COPD, dementia, HTN, CKD, hx of PEG tube, and hx of hydropneumothorax who was brought in by ambulance from [facility] due to fever since yesterday. [facility], and GI is being consulted for the C Diff infection + Peg tube/abd tenderness. He has also been found to have enlarged GB with cholelithiasis present, concerning for acute cholecystitis. Plan: Worsening AMS overlying baseline dementia Hx CVA, COPD, HTN Hx PEG tube Sepsis 2/2 UTI vs C diff, possibly another source causing infection due to persistence of > 20 WBCs despite abx regimen Acute Cholecystitis -Acute cholecystitis due to enlarged GB with wall thickening/stranding + stones , no filling on HIDA; Recommend PTC at this time from GI stand point -IR already consulted, Surgery on board -continue IV ABx; concerning for another possible source given Sacral decubitus ulcer, heel ulcers, UTI, possible PNA, and acute cholecystitis -as per Surgery, unlikely source is Sacral decub wound, possibly from UTI vs PNA vs GB -as per ID, on PO Vanco/IV Flagyl for known C diff, on Maxipime for additional coverage, might consider IR for possible PTC placement -blood cultures negative x5 days Seen, reviewed, and discussed with attending, Dr. Valerio
--- NOTE | 2017-12-18 12:10 | CP.PCM.PN ---
Subjective - Date & Time of Evaluation Date of Evaluation: 12/18/17 Time of Evaluation: 12:06 - Subjective Subjective: Podiatry progress note - Dr. Hewitt 87 y/o male seen and examined with attending Dr. Hewitt regarding right heel deep tissue injury and left heel ulceration with adjacent deep tissue injuries. Pt is of altered mental status and cannot give true HPI. Pt is alert at time of visit and nods yes when asked if he has pain to his heels. Heel pads are in place to bilateral LE. Dressings to both heels are clean dry and intact Objective - Vital Signs/Intake and Output Vital Signs (last 24 hours): Temp Pulse Resp BP Pulse Ox 97.4 F L 88 20 117/49 L 99 12/18/17 06:00 12/18/17 09:50 12/18/17 06:00 12/18/17 09:50 12/18/17 06:00 Intake and Output: 12/18/17 12/18/17 06:59 18:59 Intake Total 940 Output Total 3475 Balance -2535 - Medications Medications: Current Medications Acetaminophen (Tylenol 650mg/20.3ml Solution Ud) 650 mg PEG Q6H PRN PRN Reason: Pain, Mild (1-3) Albuterol/Ipratropium (Duoneb 3 Mg/0.5 Mg (3 Ml) Ud) 3 ml IH [id number] [facility] Last Admin: 12/18/17 07:20 Dose: 3 ml Aspirin (Ecotrin) 81 mg PO DAILY [facility] Last Admin: 12/18/17 09:50 Dose: 81 mg Enoxaparin Sodium (Lovenox) 30 mg SC DAILY [facility]IE PRN Reason: Protocol Last Admin: 12/18/17 09:41 Dose: 30 mg Metronidazole (Flagyl) 500 mg in 100 mls @ 100 mls/hr IVPB Q8 [facility] PRN Reason: Protocol Stop: 12/20/17 19:03 Last Admin: 12/18/17 05:52 Dose: 100 mls/hr Cefepime HCl (Maxipime 1gm) 1 gm in 100 mls @ 100 mls/hr IVPB Q12 [facility]IE PRN Reason: Protocol Stop: 12/22/17 22:01 Last Admin: 12/18/17 09:47 Dose: 100 mls/hr Dextrose (Dextrose 5% In Water 1000 Ml) 1,000 mls @ 50 mls/hr IV .Q20H [facility] Last Admin: 12/18/17 09:37 Dose: 50 mls/hr Losartan Potassium (Cozaar) 50 mg GT QPM [facility] Last Admin: 12/17/17 17:56 Dose: 50 mg Metoprolol Tartrate (Lopressor) 100 mg GT BID [facility] Last Admin: 12/18/17 09:50 Dose: Not Given Pantoprazole Sodium (Protonix Inj) 20 mg IVP DAILY [facility] Last Admin: 12/18/17 09:45 Dose: 20 mg Potassium Chloride (Potassium Chloride Oral Soln) 20 meq GT DAILY [facility] Last Admin: 12/18/17 09:47 Dose: 20 meq Vancomycin HCl (Vancocin 25 Mg/Ml (Oral Use)) 250 mg PO QID [facility] PRN Reason: Protocol Stop: 12/20/17 19:04 Last Admin: 12/18/17 09:44 Dose: 250 mg - Labs Labs: 12/18/17 06:30 12/18/17 06:30 PT 16.4 SECONDS (9.4-12.5) H 12/11/17 10:00 INR 1.42 (0.93-1.08) H 12/11/17 10:00 APTT 30.3 Seconds (25.1-36.5) 12/11/17 10:00 - Constitutional Appears: Well, Non-toxic, No Acute Distress - Extremities Exam Additional comments: Bilateral lower extremity focused examination: Vasc - DP/PT pulses are non palpable, CFT <3 secs x10, TG warm to warm, pedal hair is absent, no edema or erythema noted. Derm - Left: Heel eschar noted plantar and posterior aspect of the heel, measuring approximately 5.5 cm x 3.0 cm. Proximal aspect of eschar exhibits open ulceration measuring approx 2.3cm x 1.9cm x 0.2cm with mixed fibrotic and necrotic wound base and superficial fibrotic tissue slough noted. Mild erosanguinous drainage on previous bandage. No gaurav wound erythema, no malodor, no probe to bone, no purulence, no tracking or tunneling noted, no clinical signs of infection . Additional necrotic eschar noted to lateral malleolus with no gaurav wound erythema, no drainage, no malodor, no probe to bone. Right: Deep tissue injury noted on the plantar medial aspect of the heel with no break in skin or soft tissue noted. No fluctuance, no bogginess, no clinical signs of infection. Neuro - gross and protective sensation grossly intact Ortho - moderate pain on palpation to bilateral heels - Neurological Exam Neurological Exam: Alert, Awake - Psychiatric Exam Psychiatric exam: Normal Affect, Normal Mood Assessment and Plan - Assessment and Plan (Free Text) Assessment: 87 y/o male with 1) left posteroplantar heel ulceration secondary to pressure and 2) bilateral lower extremity deep tissue injuries secondary to pressure Plan: Pt seen and evaluated at bedside with Dr. Hewitt Afebrile, WBC - 23.1 X-rays - negative for OM or any acute osseous changes Aseptic excisional debridement of left heel ulcer with removal of fibrotic slough with sterile forceps and sterile scissors Pt tolerated procedure without incident L heel ulcer and lateral malleolus necrotic eschar dressed with Santyl and Optifoam bandage; R heel with Optifoam bandage for protection Heel pads reapplied, to be worn at all times in bed L foot MRI reveals possible early acute OM of left calcaneus Continue IV abx Will continue to follow patient and perform local wound care
--- NOTE | 2017-12-18 13:24 | PN ---
DATE: 12/17/2017 The patient seen on the floor. Wound VAC to be changed tomorrow. The white count is down to 23.2. Multiple bowel movements noted. Abdomen soft and nontender. Morgan Vizcaino MD
--- NOTE | 2017-12-18 15:43 | CP.PCM.PN ---
Subjective - Date & Time of Evaluation Date of Evaluation: 12/18/17 Time of Evaluation: 15:42 - Subjective Subjective: Nephrology Consultation Note: Assessment: Stable Fever with C diff diarrhoea Acute Kidney Injury (N17.9) likely due to pre-renal state Hypokalemia, hypernatremia Hypoalbuminemia, pleural effusion, malnourished state (BMI 14.6 and hypoalbuminemia) COPD, TIA/CVA, hx of peg tube, sacral decubitus ulcer, CHF, dementia, hypertension, ADIEL and C diff Anemia cholecystitis Hypomagnesemia Plan No acute need for renal replacement therapy at this time. renal function stable Hypertension control with meds as ordered. resume losartan 50 mg/day. increased lopressor 100 mg bid Monitor Input/Output, daily weights and renal function with basic metabolic panel stop IVF since Na stable. pt started on tube feeds with water flush 200 ml every 4-6 hrs. GI, surgery following supplements lytes as needed. KCL 20 meq/day added Dose meds/antibiotics for improved GFR. Avoid nephrotoxins/NSAIDs Glycemic control Further work up/management as per primary team Thanks for allowing me to participate in care of your patient. Will follow patient with you. Please call if any Qs. had d/w team Dr Wilmar Garrison Office: [phone] Chief Complaint; unable HPI: Pt is a 87 M with hx of COPD, TIA/CVA, hx of peg tube, sacral decubitus ulcer, CHF, dementia, hypertension, ADIEL and C diff presented with complaints of fever from [place] and being worked up. renal consult for ADIEL no known OTC/herbal meds or NSAIDs No recent iodinated contrast exposure. Noted episodes of low BP (101/57). ROS: unable to obtain from pt Physical Examination: General Appearance: frail elderly male malnourished, in no acute respiratory distress, Vitals reviewed and noted as below Head; Atraumatic, normocephalic ENT: no ulcers no thrush. Tongue is midline/dry . Oropharynx: no rash EYES: Pupils are equal, round and reactive to light accommodation. Eye muscles and extraocular movement intact. Sclera is anicteric. Neck; supple no lymphadenopathy, no thyromegaly or bruit Lungs: Normal respiratory rate/effort. Breath sounds bilateral equal and clear anteriorly Heart: Normal rate. s1s2 normal. No rub or gallop. Extremities: no edema. No varicose veins Neurological: Patient is alert, awake and dementia Skin: Warm and dry. Normal turgor. No rash. Palpitation: Normal elasticity for age Abdomen: Abdomen is soft. Bowel sounds +. There is mild abdominal tenderness, no guarding/rigidity no organomegaly. has PEG tube Psych: unable MSK: no joint tenderness or swelling. Digits and nails normal, no deformity : kidney or bladder not palpable Labs/imaging reviewed. Past medical history, past surgical history, family history, social history, allergy reviewed and noted as below Family hx: no hx of CKD. Rest non-contributory renal imaing WNL UA 100 protein and trace ketone Objective - Vital Signs/Intake and Output Vital Signs (last 24 hours): Temp Pulse Resp BP Pulse Ox 98 F 87 20 144/87 97 12/18/17 14:00 12/18/17 14:00 12/18/17 14:00 12/18/17 14:00 12/18/17 14:00 Intake and Output: 12/18/17 12/18/17 06:59 18:59 Intake Total 940 Output Total 3475 Balance -2535 - Medications Medications: Current Medications Acetaminophen (Tylenol 650mg/20.3ml Solution Ud) 650 mg PEG Q6H PRN PRN Reason: Pain, Mild (1-3) Albuterol/Ipratropium (Duoneb 3 Mg/0.5 Mg (3 Ml) Ud) 3 ml [facility] [id number] [facility] Last Admin: 12/18/17 13:18 Dose: 3 ml Arformoterol Tartrate (Brovana) 15 mcg [facility] [id number] [facility] Aspirin (Ecotrin) 81 mg PO DAILY [facility] Last Admin: 12/18/17 09:50 Dose: 81 mg Budesonide (Pulmicort Respules) 0.25 mg IH [id number] [facility] Enoxaparin Sodium (Lovenox) 30 mg SC DAILY [facility] PRN Reason: Protocol Last Admin: 12/18/17 09:41 Dose: 30 mg Metronidazole (Flagyl) 500 mg in 100 mls @ 100 mls/hr IVPB Q8 [facility] PRN Reason: Protocol Stop: 12/20/17 19:03 Last Admin: 12/18/17 13:52 Dose: 100 mls/hr Cefepime HCl (Maxipime 1gm) 1 gm in 100 mls @ 100 mls/hr IVPB Q12 [facility] PRN Reason: Protocol Stop: 12/22/17 22:01 Last Admin: 12/18/17 09:47 Dose: 100 mls/hr Dextrose (Dextrose 5% In Water 1000 Ml) 1,000 mls @ 50 mls/hr IV .Q20H [facility] Last Admin: 12/18/17 09:37 Dose: 50 mls/hr Losartan Potassium (Cozaar) 50 mg GT QPM [facility] Last Admin: 12/17/17 17:56 Dose: 50 mg Metoprolol Tartrate (Lopressor) 100 mg GT BID [facility] Last Admin: 12/18/17 09:50 Dose: Not Given Oxycodone/Acetaminophen (Percocet 5/325 Mg Tab) 1 tab PO Q4H PRN PRN Reason: Pain, moderate (4-7) Stop: 12/21/17 13:48 Pantoprazole Sodium (Protonix Inj) 20 mg IVP DAILY [facility] Last Admin: 12/18/17 09:45 Dose: 20 mg Potassium Chloride (Potassium Chloride Oral Soln) 20 meq GT DAILY [facility] Last Admin: 12/18/17 09:47 Dose: 20 meq Vancomycin HCl (Vancocin 25 Mg/Ml (Oral Use)) 250 mg PO QID [facility] PRN Reason: Protocol Stop: 12/20/17 19:04 Last Admin: 12/18/17 13:49 Dose: 250 mg - Labs Labs: 12/18/17 06:30 12/18/17 06:30 PT 16.4 SECONDS (9.4-12.5) H 12/11/17 10:00 INR 1.42 (0.93-1.08) H 12/11/17 10:00 APTT 30.3 Seconds (25.1-36.5) 12/11/17 10:00
--- NOTE | 2017-12-18 16:42 | CP.PCM.PN ---
Subjective - Date & Time of Evaluation Date of Evaluation: 12/18/17 Time of Evaluation: 09:55 - Subjective Subjective: Patient being fed through PEG tube, no fevers. Objective - Vital Signs/Intake and Output Vital Signs (last 24 hours): Temp Pulse Resp BP Pulse Ox 97.4 F L 89 20 114/45 L 99 12/18/17 06:00 12/18/17 06:00 12/18/17 06:00 12/18/17 06:00 12/18/17 06:00 Intake and Output: 12/18/17 12/18/17 06:59 18:59 Intake Total 940 Output Total 3475 Balance -2535 - Medications Medications: Current Medications Albuterol/Ipratropium (Duoneb 3 Mg/0.5 Mg (3 Ml) Ud) 3 ml IH [id number] [facility] Last Admin: 12/18/17 07:20 Dose: 3 ml Aspirin (Ecotrin) 81 mg PO DAILY [facility] Enoxaparin Sodium (Lovenox) 30 mg SC DAILY [facility] PRN Reason: Protocol Last Admin: 12/17/17 11:13 Dose: 30 mg Metronidazole (Flagyl) 500 mg in 100 mls @ 100 mls/hr IVPB Q8 [facility] PRN Reason: Protocol Stop: 12/20/17 19:03 Last Admin: 12/18/17 05:52 Dose: 100 mls/hr Cefepime HCl (Maxipime 1gm) 1 gm in 100 mls @ 100 mls/hr IVPB Q12 [facility] PRN Reason: Protocol Stop: 12/22/17 22:01 Last Admin: 12/18/17 04:28 Dose: 100 mls/hr Dextrose (Dextrose 5% In Water 1000 Ml) 1,000 mls @ 50 mls/hr IV .Q20H [facility] Last Admin: 12/17/17 17:55 Dose: 50 mls/hr Losartan Potassium (Cozaar) 50 mg GT QPM [facility] Last Admin: 12/17/17 17:56 Dose: 50 mg Metoprolol Tartrate (Lopressor) 100 mg GT BID [facility] Last Admin: 12/17/17 17:55 Dose: 100 mg Pantoprazole Sodium (Protonix Inj) 20 mg IVP DAILY [facility] Last Admin: 12/17/17 11:15 Dose: 20 mg Potassium Chloride (Potassium Chloride Oral Soln) 20 meq GT DAILY [facility] Last Admin: 12/17/17 11:15 Dose: 20 meq Vancomycin HCl (Vancocin 25 Mg/Ml (Oral Use)) 250 mg PO QID [facility] PRN Reason: Protocol Stop: 12/20/17 19:04 Last Admin: 12/18/17 03:10 Dose: 250 mg - Labs Labs: 12/18/17 06:30 12/18/17 06:30 PT 16.4 SECONDS (9.4-12.5) H 12/11/17 10:00 INR 1.42 (0.93-1.08) H 12/11/17 10:00 APTT 30.3 Seconds (25.1-36.5) 12/11/17 10:00 - Constitutional Appears: Chronically Ill - Head Exam Head Exam: NORMAL INSPECTION - Neck Exam Neck Exam: absent: Meningismus - Respiratory Exam Respiratory Exam: Decreased Breath Sounds - Cardiovascular Exam Cardiovascular Exam: +S1, +S2 - GI/Abdominal Exam GI & Abdominal Exam: Soft. absent: Tenderness Assessment and Plan - Assessment and Plan (Free Text) Plan: Assessment sepsis due to C. diff. colitis, acute cholecystitis and left heel osteomyelitis history of severe sepsis due to left gluteal necrotizing fasciitis S/P debridement with multiple organisms growing from the wound S/P repeat debridement history of severe sepsis S/P acute renal failure due to intra-abdominal infection with ascending colitis in this patient who developed right sided pneumohydrothorax S/P right sided chest tube placement history of severe sepsis with acute renal failure due to HCAP TIA COPD dementia HTN osteoarthritis chronic CHF cataracts Plan continue PO Vancomycin to complete 14 days of therapy (day 7) continue Cefepime and Flagyl and PO Doxycycline - may switch Cefepime and Flagyl to Zosyn together with Doxycycline to complete 4-6 weeks of therapy with weekly ESR, CRP, CBC, CMP while on antibiotics overall prognosis is poor
[2017-12-18] MEDS: Oxycodone/Acetaminophen 5/325 mg Tab PO PRN (18:14)
[2017-12-18] MEDS: Budesonide 0.25 mg/2 ml Inhal Susp UD IH SCH (20:46)
[2017-12-18] MEDS: Arformoterol 15 mcg/2 ml Inh Sol IH SCH (20:46)
--- NOTE | 2017-12-18 23:14 | PN ---
DATE: 12/18/2017 SUBJECTIVE: This is an 87-year-old male. Patient seems awake, does not have any pain. No respiratory distress. He does not talk much because of CVA. PHYSICAL EXAMINATION: VITAL SIGNS: Today, temperature 98, heart rate 87, blood pressure 144/87, respirations 20, saturations 97%. HEAD AND NECK: Normal. NECK: No JVD. No thyromegaly. CHEST: A few rhonchi bilaterally. CARDIAC: First sound and second sound normal. ABDOMEN: Soft, nontender. EXTREMITIES: No edema, but heel cushions on both legs, bilateral boots. Patient also had heel wound care with bandage. NEUROLOGICAL: Patient has dysphasia and bilateral lower extremity weakness and he is bedridden. BACK: Sacral decubitus, stage IV, with wound VAC. LABORATORY DATA: White count is little bit low, only 3.1, hemoglobin 9.8, hematocrit 29.8, platelets 232. Chemistry: Sodium 140, potassium 3.9, chloride 108, bicarb 21, BUN 19, creatinine 0.8. Kidney function is normal. Blood sugar 120, calcium 7.5, phosphorus 3.5, magnesium 1.5. Alkaline phosphatase 141, total protein 5.5, and albumin 2.5. Patient also had HIDA scan which is positive. He has MRI of his lower extremities with possible early osteomyelitis of both heels. IMPRESSION AND PLAN: 1. Sepsis secondary to possibly acute cholecystitis, sacral decubitus stage IV, and bilateral heel osteomyelitis. Continue current treatment. Patient is getting meropenem, probably going to need 4 weeks at least of IV antibiotics with current medical problem. 2. Chronic obstructive pulmonary disease. Continue DuoNeb. We will add Brovana. 3. Hypertension. Continue Cozaar 50 mg. Continue current therapy. 4. Clostridium difficile colitis. Continue Vancocin 250 four times a day for a week. 5. Continue gastrointestinal and deep vein thrombosis prophylaxis. 6. Continue aspirin 81 mg p.o. for his stroke treatment. 7. Stage IV sacral decubitus. Continue wound VAC. 8. Osteomyelitis of the heel bones. Continue IV antibiotics, will need 4 to 6 weeks of IV antibiotics. We will discuss with his family about hospice care. The daughter will meet tomorrow and also patient's family is requesting a change in the long-term situation. We will continue current therapy, follow up clinically. Patient is DNR/DNI. Discussed with them about hospice care, but daughter wants to wait till tomorrow. At this time, continue current medications, which is Brovana, Cozaar 50, DuoNeb, aspirin 81, Flagyl 500 every 8 hours, Lopressor 100 b.i.d., Lovenox 30 subcutaneous daily, Maxipime 1 g IV every 12, Percocet p.r.n. for pain, potassium 20 mEq endoscopic gastrostomy tube daily, Protonix 20 endoscopic gastrostomy tube daily, Pulmicort b.i.d., Tylenol, and Vancocin p.o. 250 four times a day for 1 week. Continue current therapy. Cody Aguilar MD
[2017-12-19] MEDS: Albuterol-Ipratrop 3 mg / 0.5 (3 ml) UD IH SCH ×4 (01:25→19:29)
[2017-12-19] MEDS: metroNIDAZOLE IV 500 mg/100 ml 500 MG/100 ML BAG IVPB SCH ×3 (05:13→21:33)
[2017-12-19 06:58] LABS: BASO # 0.01 K/mm3 (0.0-2.0); EOS # 0.2 (0.0-0.7); GRAN # 17.29 (1.4-6.5); GRAN % 85.1 % (50.0-68.0); HEMOGLOBIN 9.7 g/dL (14.0-18.0); LYMPH # 1.9 (1.2-3.4); LYMPH % 9.2 % (22.0-35.0); MEAN CELL VOLUME 73.2 fl (80.0-105.0); MEAN CORPUSCULAR HEMOGLOBIN 23.8 pg (25.0-35.0); MEAN CORPUSCULAR HGB CONC 32.6 g/dl (31.0-37.0); MONO % 4.7 % (1.0-6.0); RBC 4.07 10^6/uL (3.5-6.1); WHITE BLOOD COUNT 20.3 10^3/ul (4.5-11.0)
[2017-12-19 07:19] LABS: ALB/GLOB RATIO 0.8 (1.1-1.8); ALBUMIN 2.6 g/dL (3.0-4.8); ALT/SGPT 20 U/L (7-56); AST/SGOT 25 U/L (17-59); BLOOD UREA NITROGEN 16 mg/dL (7-21); CALCIUM 7.7 mg/dL (8.4-10.5); GFR AFRICAN-AMERICAN > 60; GFR NON-AFRICAN AMERICAN > 60
[2017-12-19] MEDS: Budesonide 0.25 mg/2 ml Inhal Susp UD IH SCH ×2 (07:20→19:29)
[2017-12-19] MEDS: Arformoterol 15 mcg/2 ml Inh Sol IH SCH ×2 (07:20→19:29)
--- NOTE | 2017-12-19 08:15 | CP.PCM.PN ---
<Ilya Webber - Last Filed: 12/19/17 08:08> Subjective - Date & Time of Evaluation Date of Evaluation: 12/19/17 Time of Evaluation: 07:00 - Subjective Subjective: GI Progress Note for Dr. Teodoro Webber, PGY-3 Patient seen and examined at bedside. Remains DNR/DNI, and as per PMD note, family now considering hospice. Patient not obtunded but significantly lethargic and only able to be aroused for short period. Able to shake head no to questions (in Marshallese) regarding pain, nausea, or emesis. Following some commands. Non-verbal, very ill-appearing, resting but arousable, tracking examiner through room when aroused. Objective - Vital Signs/Intake and Output Vital Signs (last 24 hours): Temp Pulse Resp BP Pulse Ox 97.8 F 78 18 110/78 94 L 12/18/17 22:00 12/18/17 22:00 12/18/17 22:00 12/18/17 22:00 12/18/17 22:00 Intake and Output: 12/19/17 12/19/17 06:59 18:59 Intake Total 0 Output Total 1500 Balance -1500 - Medications Medications: Current Medications Acetaminophen (Tylenol 650mg/20.3ml Solution Ud) 650 mg PEG Q6H PRN PRN Reason: Pain, Mild (1-3) Albuterol/Ipratropium (Duoneb 3 Mg/0.5 Mg (3 Ml) Ud) 3 ml IH [id number] [facility] Last Admin: 12/19/17 07:20 Dose: 3 ml Arformoterol Tartrate (Brovana) 15 mcg IH [id number] [facility] Last Admin: 12/19/17 07:20 Dose: 15 mcg Aspirin (Ecotrin) 81 mg PO DAILY [facility] Last Admin: 12/18/17 09:50 Dose: 81 mg Budesonide (Pulmicort Respules) 0.25 mg IH [id number] [facility] Last Admin: 12/19/17 07:20 Dose: 0.25 mg Enoxaparin Sodium (Lovenox) 30 mg SC DAILY [facility] PRN Reason: Protocol Last Admin: 12/18/17 09:41 Dose: 30 mg Metronidazole (Flagyl) 500 mg in 100 mls @ 100 mls/hr IVPB Q8 [facility] PRN Reason: Protocol Stop: 12/20/17 19:03 Last Admin: 12/19/17 05:13 Dose: 100 mls/hr Cefepime HCl (Maxipime 1gm) 1 gm in 100 mls @ 100 mls/hr IVPB Q12 [facility] PRN Reason: Protocol Stop: 12/22/17 22:01 Last Admin: 12/18/17 21:24 Dose: 100 mls/hr Losartan Potassium (Cozaar) 50 mg GT QPM [facility] Last Admin: 12/18/17 18:14 Dose: 50 mg Metoprolol Tartrate (Lopressor) 100 mg GT BID [facility] Last Admin: 12/18/17 18:14 Dose: 100 mg Oxycodone/Acetaminophen (Percocet 5/325 Mg Tab) 1 tab PO Q4H PRN PRN Reason: Pain, moderate (4-7) Stop: 12/21/17 13:48 Last Admin: 12/18/17 18:14 Dose: 1 tab Pantoprazole Sodium (Protonix Inj) 20 mg IVP DAILY [facility] Last Admin: 12/18/17 09:45 Dose: 20 mg Potassium Chloride (Potassium Chloride Oral Soln) 20 meq GT DAILY [facility] Last Admin: 12/18/17 09:47 Dose: 20 meq Vancomycin HCl (Vancocin 25 Mg/Ml (Oral Use)) 250 mg PO QID [facility] PRN Reason: Protocol Stop: 12/20/17 19:04 Last Admin: 12/18/17 21:25 Dose: 250 mg - Labs Labs: 12/19/17 06:30 12/19/17 06:30 PT 16.4 SECONDS (9.4-12.5) H 12/11/17 10:00 INR 1.42 (0.93-1.08) H 12/11/17 10:00 APTT 30.3 Seconds (25.1-36.5) 12/11/17 10:00 - Additional Findings Additional findings: - Constitutional Appears: Non-toxic, No Acute Distress, Chronically Ill, Lethargic - Head Exam Head Exam: ATRAUMATIC, NORMAL INSPECTION, NORMOCEPHALIC - Eye Exam Eye Exam: absent: Conjunctival injection, Scleral icterus, EOMI (not following commands for EOMI, minimal appreciable spontaneous movements with eyelids held open) Pupil Exam: absent: Fixed, Irregular - ENT Exam ENT Exam: Mucous Membranes Dry - Neck Exam Neck exam: Negative for: Lymphadenopathy, Thyromegaly - Respiratory Exam Respiratory Exam: Mildly Decreased Breath Sounds otherwise CTAB, NORMAL BREATHING PATTERN. absent: Accessory Muscle Use, Prolonged Expiratory Phase, Rales, Rhonchi, Wheezes, Respiratory Distress, Stridor Additional comments: Not following commands, so no deep breathing for auscultation, limits exam - Cardiovascular Exam Cardiovascular Exam: RRR, +S1, +S2. absent: Bradycardia, Irregular Rhythm, JVD - GI/Abdominal Exam GI & Abdominal Exam: Normal Bowel Sounds, Freely mobile PEG tube, RUQ tenderness to palpation (reacts to palpation at this site). absent: Diminished Bowel Sounds, Distended, Firm, Guarding, Hyperactive Bowel Sounds, Hypoactive Bowel Sounds Additional comments: PEG tube in place, no appreciable surrounding erythema or induration, not warm to touch, no acute reaction to deep palpation, no bloody or purulent discharge from the tube or surrounding area appreciated - Extremities Exam Extremities exam: Positive for: normal inspection, pedal pulses present. Negative for: calf tenderness, joint swelling, pedal edema, tenderness - Neurological Exam Lethargic but minimally arousable, shaking head no to 2 questions before seeming returning to somnolence, no appreciable spontaneous movements, following some commands, GCS 11 (E3V2M6) - Psychiatric Exam Demented, non-verbal, moans to pain - Skin Skin Exam: Dry, Intact, Normal Color, Warm Assessment and Plan - Assessment and Plan (Free Text) Assessment: This is an 87 yo M with PMH of CHF, CVA, COPD, dementia, HTN, CKD, hx of PEG tube, and hx of hydropneumothorax who was brought in by ambulance from retirement ([facility]) due to fever since yesterday. He was being treated for C diff infectious at the [place], and GI is being consulted for the C Diff infection + Peg tube/abd tenderness. He has also been found to have enlarged GB with cholelithiasis present, concerning for acute cholecystitis. As per PMD's note yesterday, in light of grim prognosis, family is considering hospice. Plan: Worsening AMS overlying baseline dementia Hx CVA, COPD, HTN Hx PEG tube Sepsis 2/2 UTI vs C diff, possibly another source causing infection due to persistence of > 20 WBCs despite abx regimen Acute Cholecystitis -Acute cholecystitis due to enlarged GB with wall thickening/stranding + stones , no filling on HIDA; Recommend PTC at this time from GI stand point -IR already consulted, Surgery on board -continue IV ABx; concerning for another possible source given Sacral decubitus ulcer, heel ulcers, UTI, possible PNA, and acute cholecystitis -as per Surgery, unlikely source is Sacral decub wound, possibly from UTI vs PNA vs GB -as per ID, on PO Vanco/IV Flagyl for known C diff, on Maxipime for additional coverage, might consider IR for possible PTC placement -blood cultures negative x5 days -as per PMD, family now considering Hospice, appropriate given poor condition and prognosis Seen, reviewed, and discussed with attending, Dr. Valerio <Seth Valerio V - Last Filed: 12/19/17 23:43> Objective - Vital Signs/Intake and Output Vital Signs (last 24 hours): Temp Pulse Resp BP Pulse Ox 98 F 76 16 141/74 94 L 12/19/17 21:52 12/19/17 21:52 12/19/17 21:52 12/19/17 21:52 12/19/17 21:52 Intake and Output: 12/19/17 12/20/17 18:59 06:59 Intake Total 0 Output Total 500 500 Balance -500 -500 - Medications Medications: Current Medications Acetaminophen (Tylenol 650mg/20.3ml Solution Ud) 650 mg PEG Q6H PRN PRN Reason: Pain, Mild (1-3) Albuterol/Ipratropium (Duoneb 3 Mg/0.5 Mg (3 Ml) Ud) 3 ml IH [id number] [facility] Last Admin: 12/19/17 19:29 Dose: 3 ml Arformoterol Tartrate (Brovana) 15 mcg IH [id number] [facility] Last Admin: 12/19/17 19:29 Dose: 15 mcg Aspirin (Ecotrin) 81 mg PO DAILY [facility] Last Admin: 12/19/17 10:59 Dose: 81 mg Budesonide (Pulmicort Respules) 0.25 mg IH [id number] [facility] Last Admin: 12/19/17 19:29 Dose: 0.25 mg Doxycycline Hyclate (Doryx) 100 mg PO Q12 [facility] PRN Reason: Protocol Last Admin: 12/19/17 23:32 Dose: 100 mg Enoxaparin Sodium (Lovenox) 30 mg SC DAILY [facility] PRN Reason: Protocol Last Admin: 12/19/17 10:57 Dose: 30 mg Metronidazole (Flagyl) 500 mg in 100 mls @ 100 mls/hr IVPB Q8 [facility] PRN Reason: Protocol Stop: 12/20/17 19:03 Last Admin: 12/19/17 21:33 Dose: 100 mls/hr Cefepime HCl (Maxipime 1gm) 1 gm in 100 mls @ 100 mls/hr IVPB Q12 [facility] PRN Reason: Protocol Stop: 12/22/17 22:01 Last Admin: 12/19/17 21:34 Dose: 100 mls/hr Losartan Potassium (Cozaar) 50 mg GT QPM [facility] Last Admin: 12/19/17 18:05 Dose: 50 mg Metoprolol Tartrate (Lopressor) 100 mg GT BID [facility] Last Admin: 12/19/17 18:05 Dose: 100 mg Oxycodone/Acetaminophen (Percocet 5/325 Mg Tab) 1 tab PO Q4H PRN PRN Reason: Pain, moderate (4-7) Stop: 12/21/17 13:48 Last Admin: 12/19/17 11:04 Dose: 1 tab Pantoprazole Sodium (Protonix Inj) 20 mg IVP DAILY [facility] Last Admin: 12/19/17 10:56 Dose: 20 mg Potassium Chloride (Potassium Chloride Oral Soln) 20 meq GT DAILY [facility] Last Admin: 12/19/17 10:56 Dose: 20 meq Vancomycin HCl (Vancocin 25 Mg/Ml (Oral Use)) 250 mg PO QID [facility] PRN Reason: Protocol Stop: 12/20/17 19:04 Last Admin: 12/19/17 23:33 Dose: 250 mg - Labs Labs: 12/19/17 06:30 12/19/17 06:30 PT 16.4 SECONDS (9.4-12.5) H 12/11/17 10:00 INR 1.42 (0.93-1.08) H 12/11/17 10:00 APTT 30.3 Seconds (25.1-36.5) 12/11/17 10:00 Attending/Attestation - Attestation I have personally seen and examined this patient.: Yes I have fully participated in the care of the patient.: Yes I have reviewed all pertinent clinical information, including history, physical exam and plan: Yes Notes (Text): carissa 12/19/17 23:43
[2017-12-19] MEDS: Vancomycin 25 MG/ML PO SCH ×4 (09:00→23:33)
--- NOTE | 2017-12-19 10:27 | CP.PCM.PN ---
Subjective - Date & Time of Evaluation Date of Evaluation: 12/19/17 Time of Evaluation: 10:24 - Subjective Subjective: General Surgery Progress Note for Dr. Vizcaino Patient seen and examined at bedside. Wound vac in place and draining appropriately. Patient responded to verbal cues this am. Denies pain on questioning. Objective - Vital Signs/Intake and Output Vital Signs (last 24 hours): Temp Pulse Resp BP Pulse Ox 98 F 81 16 134/81 96 12/19/17 06:00 12/19/17 06:00 12/19/17 06:00 12/19/17 06:00 12/19/17 06:00 Intake and Output: 12/19/17 12/19/17 06:59 18:59 Intake Total 0 Output Total 1500 Balance -1500 - Medications Medications: Current Medications Acetaminophen (Tylenol 650mg/20.3ml Solution Ud) 650 mg PEG Q6H PRN PRN Reason: Pain, Mild (1-3) Albuterol/Ipratropium (Duoneb 3 Mg/0.5 Mg (3 Ml) Ud) 3 ml IH [id number] [facility] Last Admin: 12/19/17 07:20 Dose: 3 ml Arformoterol Tartrate (Brovana) 15 mcg IH [id number] [facility] Last Admin: 12/19/17 07:20 Dose: 15 mcg Aspirin (Ecotrin) 81 mg PO DAILY [facility] Last Admin: 12/18/17 09:50 Dose: 81 mg Budesonide (Pulmicort Respules) 0.25 mg IH [id number] [facility] Last Admin: 12/19/17 07:20 Dose: 0.25 mg Enoxaparin Sodium (Lovenox) 30 mg SC DAILY [facility] PRN Reason: Protocol Last Admin: 12/18/17 09:41 Dose: 30 mg Metronidazole (Flagyl) 500 mg in 100 mls @ 100 mls/hr IVPB Q8 [facility] PRN Reason: Protocol Stop: 12/20/17 19:03 Last Admin: 12/19/17 05:13 Dose: 100 mls/hr Cefepime HCl (Maxipime 1gm) 1 gm in 100 mls @ 100 mls/hr IVPB Q12 [facility] PRN Reason: Protocol Stop: 12/22/17 22:01 Last Admin: 12/18/17 21:24 Dose: 100 mls/hr Losartan Potassium (Cozaar) 50 mg GT QPM [facility] Last Admin: 12/18/17 18:14 Dose: 50 mg Metoprolol Tartrate (Lopressor) 100 mg GT BID [facility] Last Admin: 12/18/17 18:14 Dose: 100 mg Oxycodone/Acetaminophen (Percocet 5/325 Mg Tab) 1 tab PO Q4H PRN PRN Reason: Pain, moderate (4-7) Stop: 12/21/17 13:48 Last Admin: 12/18/17 18:14 Dose: 1 tab Pantoprazole Sodium (Protonix Inj) 20 mg IVP DAILY [facility] Last Admin: 12/18/17 09:45 Dose: 20 mg Potassium Chloride (Potassium Chloride Oral Soln) 20 meq GT DAILY [facility] Last Admin: 12/18/17 09:47 Dose: 20 meq Vancomycin HCl (Vancocin 25 Mg/Ml (Oral Use)) 250 mg PO QID [facility] PRN Reason: Protocol Stop: 12/20/17 19:04 Last Admin: 12/18/17 21:25 Dose: 250 mg - Labs Labs: 12/19/17 06:30 12/19/17 06:30 PT 16.4 SECONDS (9.4-12.5) H 12/11/17 10:00 INR 1.42 (0.93-1.08) H 12/11/17 10:00 APTT 30.3 Seconds (25.1-36.5) 12/11/17 10:00 - Constitutional Appears: Well, Non-toxic, Chronically Ill - Head Exam Head Exam: NORMAL INSPECTION - Eye Exam Eye Exam: Normal appearance - ENT Exam ENT Exam: Mucous Membranes Moist - Respiratory Exam Respiratory Exam: NORMAL BREATHING PATTERN - Cardiovascular Exam Cardiovascular Exam: REGULAR RHYTHM - GI/Abdominal Exam GI & Abdominal Exam: Distended (mildly ), Soft, Tenderness (mild diffuse), Hypoactive Bowel Sounds. absent: Firm, Guarding, Rigid, Rebound Additional comments: Gastrostomy tube in place. No surrounding erythema noted. - Extremities Exam Additional comments: Unstageable L heel decubitus ulcer with tenderness to palpation and surrounding erythema. Ecchymosis of R heel , no crepitus, fluctuance or erythema noted. - Neurological Exam Neurological Exam: Altered. absent: Oriented x3 - Psychiatric Exam Psychiatric exam: Normal Affect - Skin Additional comments: 15cm x 10cm x 1 cm stage 4 decubitus ulcer. Wound Vac in place on continuous 125mmhg , no leak. Assessment and Plan - Assessment and Plan (Free Text) Assessment: 87 y/o M with leukocytosis, sacral decubitus and possible cholecystitis. Plan: - Patient is a poor surgical candidate due to prior history of CHF, CVA, COPD and dementia - Recommend cholecystotomy tube. - Wound vac in place over sacral decubitus ulcer. change on 12/21/17 - air mattress, turn q 2 hours - continue abx per ID recs - f/u GI recs - Discussed plan with Dr. Carrillo Nash PGY1
[2017-12-19] MEDS: Cefepime 1gm in NS 100ml 1 GM/100 ML BAG IVPB SCH ×2 (10:55→21:34)
[2017-12-19] MEDS: Potassium Chloride 20 mEq/15 ml LIQ UD GT SCH (10:56)
[2017-12-19] MEDS: Enoxaparin 30 mg Syringe SC SCH (10:57)
[2017-12-19] MEDS: Oxycodone/Acetaminophen 5/325 mg Tab PO PRN (11:04)
--- NOTE | 2017-12-19 11:31 | CP.PCM.PN ---
Subjective - Date & Time of Evaluation Date of Evaluation: 12/19/17 Time of Evaluation: 10:25 - Subjective Subjective: Comfortable in bed, no fevers overnight. No diarrhea overnight as per nurse. Objective - Vital Signs/Intake and Output Vital Signs (last 24 hours): Temp Pulse Resp BP Pulse Ox 98 F 81 16 134/81 96 12/19/17 06:00 12/19/17 06:00 12/19/17 06:00 12/19/17 06:00 12/19/17 06:00 Intake and Output: 12/19/17 12/19/17 06:59 18:59 Intake Total 0 Output Total 1500 Balance -1500 - Medications Medications: Current Medications Acetaminophen (Tylenol 650mg/20.3ml Solution Ud) 650 mg PEG Q6H PRN PRN Reason: Pain, Mild (1-3) Albuterol/Ipratropium (Duoneb 3 Mg/0.5 Mg (3 Ml) Ud) 3 ml IH [id number] [facility] Last Admin: 12/19/17 07:20 Dose: 3 ml Arformoterol Tartrate (Brovana) 15 mcg IH [id number] [facility] Last Admin: 12/19/17 07:20 Dose: 15 mcg Aspirin (Ecotrin) 81 mg PO DAILY [facility] Last Admin: 12/18/17 09:50 Dose: 81 mg Budesonide (Pulmicort Respules) 0.25 mg IH [id number] [facility] 234 [facility]S AT [facility] Last Admin: 12/19/17 07:20 Dose: 0.25 mg Enoxaparin Sodium (Lovenox) 30 mg SC DAILY [facility] PRN Reason: Protocol Last Admin: 12/18/17 09:41 Dose: 30 mg Metronidazole (Flagyl) 500 mg in 100 mls @ 100 mls/hr IVPB Q8 [facility] PRN Reason: Protocol Stop: 12/20/17 19:03 Last Admin: 12/19/17 05:13 Dose: 100 mls/hr Cefepime HCl (Maxipime 1gm) 1 gm in 100 mls @ 100 mls/hr IVPB Q12 [facility] PRN Reason: Protocol Stop: 12/22/17 22:01 Last Admin: 12/18/17 21:24 Dose: 100 mls/hr Losartan Potassium (Cozaar) 50 mg GT QPM [facility] Last Admin: 12/18/17 18:14 Dose: 50 mg Metoprolol Tartrate (Lopressor) 100 mg GT BID [facility]S [facility] Last Admin: 12/18/17 18:14 Dose: 100 mg Oxycodone/Acetaminophen (Percocet 5/325 Mg Tab) 1 tab PO Q4H PRN PRN Reason: Pain, moderate (4-7) Stop: 12/21/17 13:48 Last Admin: 12/18/17 18:14 Dose: 1 tab Pantoprazole Sodium (Protonix Inj) 20 mg IVP DAILY [facility] Last Admin: 12/18/17 09:45 Dose: 20 mg Potassium Chloride (Potassium Chloride Oral Soln) 20 meq GT DAILY [facility] 234 [facility]S AT [facility] Last Admin: 12/18/17 09:47 Dose: 20 meq Vancomycin HCl (Vancocin 25 Mg/Ml (Oral Use)) 250 mg PO QID [facility] PRN Reason: Protocol Stop: 12/20/17 19:04 Last Admin: 12/18/17 21:25 Dose: 250 mg - Labs Labs: 12/19/17 06:30 12/19/17 06:30 PT 16.4 SECONDS (9.4-12.5) H 12/11/17 10:00 INR 1.42 (0.93-1.08) H 12/11/17 10:00 APTT 30.3 Seconds (25.1-36.5) 12/11/17 10:00 - Constitutional Appears: Chronically Ill - Head Exam Head Exam: NORMAL INSPECTION - Neck Exam Neck Exam: absent: Meningismus - Respiratory Exam Respiratory Exam: Decreased Breath Sounds - Cardiovascular Exam Cardiovascular Exam: +S1, +S2 - GI/Abdominal Exam GI & Abdominal Exam: Soft. absent: Tenderness Additional comments: wound vacuum in place over sacral area Assessment and Plan - Assessment and Plan (Free Text) Plan: Assessment sepsis due to C. diff. colitis, acute cholecystitis and left heel osteomyelitis history of severe sepsis due to left gluteal necrotizing fasciitis S/P debridement with multiple organisms growing from the wound S/P repeat debridement history of severe sepsis S/P acute renal failure due to intra-abdominal infection with ascending colitis in this patient who developed right sided pneumohydrothorax S/P right sided chest tube placement history of severe sepsis with acute renal failure due to HCAP TIA COPD dementia HTN osteoarthritis chronic CHF cataracts Plan continue PO Vancomycin to complete 14 days of therapy (day 8) continue Cefepime and Flagyl and PO Doxycycline - may switch Cefepime and Flagyl to Zosyn together with Doxycycline to complete 4-6 weeks of therapy with weekly ESR, CRP, CBC, CMP while on antibiotics overall prognosis is poor and patient may be placed on hospice as per Nurse practitioner handling his case
--- NOTE | 2017-12-19 12:39 | CP.PCM.PN ---
Subjective - Date & Time of Evaluation Date of Evaluation: 12/19/17 Time of Evaluation: 12:39 - Subjective Subjective: Nephrology Consultation Note: Assessment: Stable Fever with C diff diarrhoea Acute Kidney Injury (N17.9) likely due to pre-renal state Hypokalemia, hypernatremia Hypoalbuminemia, pleural effusion, malnourished state (BMI 14.6 and hypoalbuminemia) COPD, TIA/CVA, hx of peg tube, sacral decubitus ulcer, CHF, dementia, hypertension, ADIEL and C diff Anemia cholecystitis Hypomagnesemia Plan No acute need for renal replacement therapy at this time. renal function stable Hypertension control with meds as ordered. resume losartan 50 mg/day. increased lopressor 100 mg bid Monitor Input/Output, daily weights and renal function with basic metabolic panel stop IVF since Na stable. pt started on tube feeds with water flush 250 ml every 6 hrs. GI, surgery following supplements lytes as needed. KCL 20 meq/day added Dose meds/antibiotics for improved GFR. Avoid nephrotoxins/NSAIDs Glycemic control Further work up/management as per primary team pt accepted for hospice Thanks for allowing me to participate in care of your patient. Will sign off. Please call if any Qs. had d/w team Dr Wilmar Garrison Office: [phone] Chief Complaint; unable HPI: Pt is a 87 M with hx of COPD, TIA/CVA, hx of peg tube, sacral decubitus ulcer, CHF, dementia, hypertension, ADIEL and C diff presented with complaints of fever from [place] and being worked up. renal consult for ADIEL no known OTC/herbal meds or NSAIDs No recent iodinated contrast exposure. Noted episodes of low BP (101/57). ROS: unable to obtain from pt Physical Examination: General Appearance: frail elderly male malnourished, in no acute respiratory distress, Vitals reviewed and noted as below Head; Atraumatic, normocephalic ENT: no ulcers no thrush. Tongue is midline/dry . Oropharynx: no rash EYES: Pupils are equal, round and reactive to light accommodation. Eye muscles and extraocular movement intact. Sclera is anicteric. Neck; supple no lymphadenopathy, no thyromegaly or bruit Lungs: Normal respiratory rate/effort. Breath sounds bilateral equal and clear anteriorly Heart: Normal rate. s1s2 normal. No rub or gallop. Extremities: no edema. No varicose veins Neurological: Patient is alert, awake and dementia Skin: Warm and dry. Normal turgor. No rash. Palpitation: Normal elasticity for age Abdomen: Abdomen is soft. Bowel sounds +. There is mild abdominal tenderness, no guarding/rigidity no organomegaly. has PEG tube Psych: unable MSK: no joint tenderness or swelling. Digits and nails normal, no deformity : kidney or bladder not palpable Labs/imaging reviewed. Past medical history, past surgical history, family history, social history, allergy reviewed and noted as below Family hx: no hx of CKD. Rest non-contributory renal imaing WNL UA 100 protein and trace ketone Objective - Vital Signs/Intake and Output Vital Signs (last 24 hours): Temp Pulse Resp BP Pulse Ox 98 F 82 16 137/88 96 12/19/17 06:00 12/19/17 10:57 12/19/17 06:00 12/19/17 10:57 12/19/17 06:00 Intake and Output: 12/19/17 12/19/17 06:59 18:59 Intake Total 0 Output Total 1500 Balance -1500 - Medications Medications: Current Medications Acetaminophen (Tylenol 650mg/20.3ml Solution Ud) 650 mg PEG Q6H PRN PRN Reason: Pain, Mild (1-3) Albuterol/Ipratropium (Duoneb 3 Mg/0.5 Mg (3 Ml) Ud) 3 ml IH [id number] [facility] Last Admin: 12/19/17 07:20 Dose: 3 ml Arformoterol Tartrate (Brovana) 15 mcg IH [id number] [facility] Last Admin: 12/19/17 07:20 Dose: 15 mcg Aspirin (Ecotrin) 81 mg PO DAILY [facility] Last Admin: 12/19/17 10:59 Dose: 81 mg Budesonide (Pulmicort Respules) 0.25 mg IH [id number] [facility] Last Admin: 12/19/17 07:20 Dose: 0.25 mg Doxycycline Hyclate (Doryx) 100 mg PO Q12 [facility] PRN Reason: Protocol Enoxaparin Sodium (Lovenox) 30 mg SC DAILY [facility] PRN Reason: Protocol Last Admin: 12/19/17 10:57 Dose: 30 mg Metronidazole (Flagyl) 500 mg in 100 mls @ 100 mls/hr IVPB Q8 [facility] PRN Reason: Protocol Stop: 12/20/17 19:03 Last Admin: 12/19/17 05:13 Dose: 100 mls/hr Cefepime HCl (Maxipime 1gm) 1 gm in 100 mls @ 100 mls/hr IVPB Q12 [facility] PRN Reason: Protocol Stop: 12/22/17 22:01 Last Admin: 12/19/17 10:55 Dose: 100 mls/hr Losartan Potassium (Cozaar) 50 mg GT QPM [facility] Last Admin: 12/18/17 18:14 Dose: 50 mg Metoprolol Tartrate (Lopressor) 100 mg GT BID [facility] Last Admin: 12/19/17 10:57 Dose: 100 mg Oxycodone/Acetaminophen (Percocet 5/325 Mg Tab) 1 tab PO Q4H PRN PRN Reason: Pain, moderate (4-7) Stop: 12/21/17 13:48 Last Admin: 12/19/17 11:04 Dose: 1 tab Pantoprazole Sodium (Protonix Inj) 20 mg IVP DAILY [facility] Last Admin: 12/19/17 10:56 Dose: 20 mg Potassium Chloride (Potassium Chloride Oral Soln) 20 meq GT DAILY [facility] Last Admin: 12/19/17 10:56 Dose: 20 meq Vancomycin HCl (Vancocin 25 Mg/Ml (Oral Use)) 250 mg PO QID [facility] PRN Reason: Protocol Stop: 12/20/17 19:04 Last Admin: 12/19/17 09:00 Dose: 250 mg - Labs Labs: 12/19/17 06:30 12/19/17 06:30 PT 16.4 SECONDS (9.4-12.5) H 12/11/17 10:00 INR 1.42 (0.93-1.08) H 12/11/17 10:00 APTT 30.3 Seconds (25.1-36.5) 12/11/17 10:00
--- NOTE | 2017-12-19 12:58 | CP.PCM.PN ---
<Mary Chaves - Last Filed: 12/19/17 12:52> Subjective - Date & Time of Evaluation Date of Evaluation: 12/19/17 Time of Evaluation: 12:53 - Subjective Subjective: Podiatry Progress note - Dr. Sr 87 y/o male seen and examined with attending Dr. Sr regarding right heel deep tissue injury and left heel ulceration with adjacent deep tissue injuries. Pt is of altered mental status and cannot give true HPI. Pt is alert at time of visit and nods yes when asked if he has pain in his lower extremities. Heel pads in place to bilateral LE. Dressings to both heels are clean dry and intact. Per nurse practitioner, patient is likely to go on inpatient hospice and transition home soon after. Objective - Vital Signs/Intake and Output Vital Signs (last 24 hours): Temp Pulse Resp BP Pulse Ox 98 F 82 16 137/88 96 12/19/17 06:00 12/19/17 10:57 12/19/17 06:00 12/19/17 10:57 12/19/17 06:00 Intake and Output: 12/19/17 12/19/17 06:59 18:59 Intake Total 0 Output Total 1500 Balance -1500 - Medications Medications: Current Medications Acetaminophen (Tylenol 650mg/20.3ml Solution Ud) 650 mg PEG Q6H PRN PRN Reason: Pain, Mild (1-3) Albuterol/Ipratropium (Duoneb 3 Mg/0.5 Mg (3 Ml) Ud) 3 ml IH [id number] [facility] Last Admin: 12/19/17 07:20 Dose: 3 ml Arformoterol Tartrate (Brovana) 15 mcg IH [id number] [facility] Last Admin: 12/19/17 07:20 Dose: 15 mcg Aspirin (Ecotrin) 81 mg PO DAILY [facility] Last Admin: 12/19/17 10:59 Dose: 81 mg Budesonide (Pulmicort Respules) 0.25 mg IH [id number] [facility] Last Admin: 12/19/17 07:20 Dose: 0.25 mg Doxycycline Hyclate (Doryx) 100 mg PO Q12 [facility] PRN Reason: Protocol Enoxaparin Sodium (Lovenox) 30 mg SC DAILY [facility] PRN Reason: Protocol Last Admin: 12/19/17 10:57 Dose: 30 mg Metronidazole (Flagyl) 500 mg in 100 mls @ 100 mls/hr IVPB Q8 [facility] PRN Reason: Protocol Stop: 12/20/17 19:03 Last Admin: 12/19/17 05:13 Dose: 100 mls/hr Cefepime HCl (Maxipime 1gm) 1 gm in 100 mls @ 100 mls/hr IVPB Q12 [facility] PRN Reason: Protocol Stop: 12/22/17 22:01 Last Admin: 12/19/17 10:55 Dose: 100 mls/hr Losartan Potassium (Cozaar) 50 mg GT QPM [facility] Last Admin: 12/18/17 18:14 Dose: 50 mg Metoprolol Tartrate (Lopressor) 100 mg GT BID [facility] Last Admin: 12/19/17 10:57 Dose: 100 mg Oxycodone/Acetaminophen (Percocet 5/325 Mg Tab) 1 tab PO Q4H PRN PRN Reason: Pain, moderate (4-7) Stop: 12/21/17 13:48 Last Admin: 12/19/17 11:04 Dose: 1 tab Pantoprazole Sodium (Protonix Inj) 20 mg IVP DAILY [facility] Last Admin: 12/19/17 10:56 Dose: 20 mg Potassium Chloride (Potassium Chloride Oral Soln) 20 meq GT DAILY [facility] Last Admin: 12/19/17 10:56 Dose: 20 meq Vancomycin HCl (Vancocin 25 Mg/Ml (Oral Use)) 250 mg PO QID [facility] PRN Reason: Protocol Stop: 12/20/17 19:04 Last Admin: 12/19/17 09:00 Dose: 250 mg - Labs Labs: 12/19/17 06:30 12/19/17 06:30 PT 16.4 SECONDS (9.4-12.5) H 12/11/17 10:00 INR 1.42 (0.93-1.08) H 12/11/17 10:00 APTT 30.3 Seconds (25.1-36.5) 12/11/17 10:00 - Constitutional Appears: Well, Non-toxic, No Acute Distress - Extremities Exam Additional comments: Bilateral lower extremity focused examination: Vasc - DP/PT pulses are non palpable, CFT <3 secs x10, TG warm to warm, pedal hair is absent, no edema or erythema noted. Derm - Left: Heel eschar noted plantar and posterior aspect of the heel, measuring approximately 5.5 cm x 3.0 cm. Proximal aspect of eschar exhibits open ulceration measuring approx 2.3cm x 1.9cm x 0.2cm with mixed fibrotic and necrotic wound base. Mild serosanguinous drainage on previous bandage. No gaurav wound erythema, no malodor, no probe to bone, no purulence, no tracking or tunneling noted, no clinical signs of infection . Additional necrotic eschar noted to lateral malleolus with no gaurav wound erythema, no drainage, no malodor , no probe to bone. Right: Deep tissue injury noted on the plantar medial aspect of the heel with no break in skin or soft tissue noted. No fluctuance, no bogginess, no clinical signs of infection. Neuro - gross and protective sensation grossly intact Ortho - moderate pain on palpation to bilateral heels - Neurological Exam Neurological Exam: Alert, Awake, Oriented x3 - Psychiatric Exam Psychiatric exam: Normal Affect, Normal Mood Assessment and Plan - Assessment and Plan (Free Text) Assessment: 87 y/o male with 1) left posteroplantar heel ulceration and lateral malleolar ulceration secondary to pressure and 2) bilateral plantar heel deep tissue injuries secondary to pressure Plan: Pt seen and evaluated at bedside with Dr. Sr Pt afebrile, WBC 20.3 X-rays - negative for OM or any acute osseous changes L foot MRI reveals possible early acute OM of left calcaneus Continue IV abx L heel ulcer and lateral malleolus necrotic eschar dressed with Santyl and Optifoam bandage; R heel with Optifoam bandage for protection Heel pads reapplied, to be worn at all times in bed Pt likely to go on inpatient hospice and transition home soon after Will continue to follow patient and perform local wound care <Valdez Sr - Last Filed: 12/22/17 11:20> Objective - Vital Signs/Intake and Output Vital Signs (last 24 hours): Temp Pulse Resp BP Pulse Ox 97.8 F 90 20 150/80 94 L 12/21/17 06:00 12/21/17 06:00 12/21/17 06:00 12/21/17 11:00 12/21/17 06:00 - Labs Labs: 12/19/17 06:30 12/19/17 06:30 PT 16.4 SECONDS (9.4-12.5) H 12/11/17 10:00 INR 1.42 (0.93-1.08) H 12/11/17 10:00 APTT 30.3 Seconds (25.1-36.5) 12/11/17 10:00 Attending/Attestation - Attestation I have personally seen and examined this patient.: Yes I have fully participated in the care of the patient.: Yes I have reviewed all pertinent clinical information, including history, physical exam and plan: Yes
--- NOTE | 2017-12-19 14:06 | CP.PCM.PN ---
Subjective - Date & Time of Evaluation Date of Evaluation: 12/19/17 Time of Evaluation: 11:00 - Subjective Subjective: unresponsive, Objective - Vital Signs/Intake and Output Vital Signs (last 24 hours): Temp Pulse Resp BP Pulse Ox 98 F 82 16 137/88 96 12/19/17 06:00 12/19/17 10:57 12/19/17 06:00 12/19/17 10:57 12/19/17 06:00 Intake and Output: 12/19/17 12/19/17 06:59 18:59 Intake Total 0 Output Total 1500 Balance -1500 - Medications Medications: Current Medications Acetaminophen (Tylenol 650mg/20.3ml Solution Ud) 650 mg PEG Q6H PRN PRN Reason: Pain, Mild (1-3) Albuterol/Ipratropium (Duoneb 3 Mg/0.5 Mg (3 Ml) Ud) 3 ml IH [id number] [facility] Last Admin: 12/19/17 13:32 Dose: 3 ml Arformoterol Tartrate (Brovana) 15 mcg IH [id number] [facility] Last Admin: 12/19/17 07:20 Dose: 15 mcg Aspirin (Ecotrin) 81 mg PO DAILY [facility] Last Admin: 12/19/17 10:59 Dose: 81 mg Budesonide (Pulmicort Respules) 0.25 mg IH [id number] [facility] Last Admin: 12/19/17 07:20 Dose: 0.25 mg Doxycycline Hyclate (Doryx) 100 mg PO Q12 [facility] PRN Reason: Protocol Enoxaparin Sodium (Lovenox) 30 mg SC DAILY [facility] PRN Reason: Protocol Last Admin: 12/19/17 10:57 Dose: 30 mg Metronidazole (Flagyl) 500 mg in 100 mls @ 100 mls/hr IVPB Q8 [facility] PRN Reason: Protocol Stop: 12/20/17 19:03 Last Admin: 12/19/17 13:22 Dose: 100 mls/hr Cefepime HCl (Maxipime 1gm) 1 gm in 100 mls @ 100 mls/hr IVPB Q12 [facility] PRN Reason: Protocol Stop: 12/22/17 22:01 Last Admin: 12/19/17 10:55 Dose: 100 mls/hr Losartan Potassium (Cozaar) 50 mg GT QPM [facility] Last Admin: 12/18/17 18:14 Dose: 50 mg Metoprolol Tartrate (Lopressor) 100 mg GT BID [facility] Last Admin: 12/19/17 10:57 Dose: 100 mg Oxycodone/Acetaminophen (Percocet 5/325 Mg Tab) 1 tab PO Q4H PRN PRN Reason: Pain, moderate (4-7) Stop: 12/21/17 13:48 Last Admin: 12/19/17 11:04 Dose: 1 tab Pantoprazole Sodium (Protonix Inj) 20 mg IVP DAILY [facility] Last Admin: 12/19/17 10:56 Dose: 20 mg Potassium Chloride (Potassium Chloride Oral Soln) 20 meq GT DAILY [facility] Last Admin: 12/19/17 10:56 Dose: 20 meq Vancomycin HCl (Vancocin 25 Mg/Ml (Oral Use)) 250 mg PO QID [facility] PRN Reason: Protocol Stop: 12/20/17 19:04 Last Admin: 12/19/17 13:13 Dose: 250 mg - Labs Labs: 12/19/17 06:30 12/19/17 06:30 PT 16.4 SECONDS (9.4-12.5) H 12/11/17 10:00 INR 1.42 (0.93-1.08) H 12/11/17 10:00 APTT 30.3 Seconds (25.1-36.5) 12/11/17 10:00 - Constitutional Appears: Cachectic, Chronically Ill - Eye Exam Eye Exam: Normal appearance, PERRL - ENT Exam ENT Exam: Mucous Membranes Moist - Respiratory Exam Respiratory Exam: Decreased Breath Sounds, NORMAL BREATHING PATTERN - Cardiovascular Exam Cardiovascular Exam: REGULAR RHYTHM, +S1, +S2 - GI/Abdominal Exam GI & Abdominal Exam: Soft, Hypoactive Bowel Sounds - Neurological Exam Neurological Exam: Altered - Skin Skin Exam: Dry, Pallor Assessment and Plan - Assessment and Plan (Free Text) Assessment: 89 year old male with history of CVA,dyspahgia who is admitted with sepsis, sacral wound Family met with case management yesterday. Hospice services were discussed. [facility] metal expediter and I met with patient daughter today. Hospice services reviewed in detail. Questions answered. Pat evaluated for GIP services but does not meet criteria. [facility], consent signed by family End of life counseling provided. Time spent with family in goals of care and end of life counseling, 30 minutes Plan: Hospice evaluation for GIP services End of life counseling Pain and symptom management Wound care
[2017-12-20] MEDS: Albuterol-Ipratrop 3 mg / 0.5 (3 ml) UD IH SCH ×4 (02:27→19:14)
[2017-12-20] MEDS: Arformoterol 15 mcg/2 ml Inh Sol IH SCH ×2 (07:24→19:14)
[2017-12-20] MEDS: Budesonide 0.25 mg/2 ml Inhal Susp UD IH SCH ×2 (07:24→19:14)
[2017-12-20] MEDS: Cefepime 1gm in NS 100ml 1 GM/100 ML BAG IVPB SCH ×2 (09:45→21:25)
[2017-12-20] MEDS: Enoxaparin 30 mg Syringe SC SCH (09:45)
[2017-12-20] MEDS: Vancomycin 25 MG/ML PO SCH ×3 (09:46→17:32)
[2017-12-20] MEDS: Potassium Chloride 20 mEq/15 ml LIQ UD GT SCH (09:46)
--- NOTE | 2017-12-20 09:56 | CP.PCM.PN ---
<Mary Chaves - Last Filed: 12/20/17 09:53> Subjective - Date & Time of Evaluation Date of Evaluation: 12/20/17 Time of Evaluation: 09:53 - Subjective Subjective: Podiatry Progress note - Dr. Hewitt 87 y/o male seen and examined at bedside this morning regarding right heel deep tissue injury and left heel ulceration with adjacent deep tissue injuries. Pt is of altered mental status and cannot give true HPI. Pt sleeping at initial time of visit. Pt nods yes when asked if he is still having pain in his lower extremities. Offloading pads are in place. Per nursing, no acute events overnight. Objective - Vital Signs/Intake and Output Vital Signs (last 24 hours): Temp Pulse Resp BP Pulse Ox 97.6 F 85 21 126/61 95 12/20/17 06:00 12/20/17 06:00 12/20/17 06:00 12/20/17 06:00 12/20/17 06:00 Intake and Output: 12/20/17 12/20/17 06:59 18:59 Intake Total 0 Output Total 1220 Balance -1220 - Medications Medications: Current Medications Acetaminophen (Tylenol 650mg/20.3ml Solution Ud) 650 mg PEG Q6H PRN PRN Reason: Pain, Mild (1-3) Albuterol/Ipratropium (Duoneb 3 Mg/0.5 Mg (3 Ml) Ud) 3 ml IH [id number] [facility] Last Admin: 12/20/17 07:24 Dose: 3 ml Arformoterol Tartrate (Brovana) 15 mcg IH [id number] [facility] Last Admin: 12/20/17 07:24 Dose: 15 mcg Aspirin (Ecotrin) 81 mg PO DAILY [facility] Last Admin: 12/20/17 09:37 Dose: 81 mg Budesonide (Pulmicort Respules) 0.25 mg IH [id number] [facility] Last Admin: 12/20/17 07:24 Dose: 0.25 mg Doxycycline Hyclate (Doryx) 100 mg PO Q12 [facility] PRN Reason: Protocol Last Admin: 12/20/17 09:37 Dose: 100 mg Enoxaparin Sodium (Lovenox) 30 mg SC DAILY [facility] PRN Reason: Protocol Last Admin: 12/20/17 09:45 Dose: 30 mg Metronidazole (Flagyl) 500 mg in 100 mls @ 100 mls/hr IVPB Q8 [facility] PRN Reason: Protocol Stop: 12/20/17 19:03 Last Admin: 12/19/17 21:33 Dose: 100 mls/hr Cefepime HCl (Maxipime 1gm) 1 gm in 100 mls @ 100 mls/hr IVPB Q12 [facility] PRN Reason: Protocol Stop: 12/22/17 22:01 Last Admin: 12/20/17 09:45 Dose: 100 mls/hr Losartan Potassium (Cozaar) 50 mg GT QPM [facility] Last Admin: 12/19/17 18:05 Dose: 50 mg Metoprolol Tartrate (Lopressor) 100 mg GT BID [facility] Last Admin: 12/20/17 09:44 Dose: 100 mg Oxycodone/Acetaminophen (Percocet 5/325 Mg Tab) 1 tab PO Q4H PRN PRN Reason: Pain, moderate (4-7) Stop: 12/21/17 13:48 Last Admin: 12/19/17 11:04 Dose: 1 tab Pantoprazole Sodium (Protonix Inj) 20 mg IVP DAILY [facility] Last Admin: 12/20/17 09:46 Dose: 20 mg Potassium Chloride (Potassium Chloride Oral Soln) 20 meq GT DAILY [facility] Last Admin: 12/20/17 09:46 Dose: 20 meq Vancomycin HCl (Vancocin 25 Mg/Ml (Oral Use)) 250 mg PO QID [facility] PRN Reason: Protocol Stop: 12/20/17 19:04 Last Admin: 12/20/17 09:46 Dose: 250 mg - Labs Labs: 12/19/17 06:30 12/19/17 06:30 PT 16.4 SECONDS (9.4-12.5) H 12/11/17 10:00 INR 1.42 (0.93-1.08) H 12/11/17 10:00 APTT 30.3 Seconds (25.1-36.5) 12/11/17 10:00 - Constitutional Appears: Well, Non-toxic, No Acute Distress - Extremities Exam Additional comments: Bilateral lower extremity focused examination: Vasc - DP/PT pulses are non palpable, CFT <3 secs x10, TG warm to warm, pedal hair is absent, no edema or erythema noted. Derm - Left: Heel eschar noted plantar and posterior aspect of the heel, measuring approximately 5.5 cm x 3.0 cm. Proximal aspect of eschar exhibits open ulceration measuring approx 2.3cm x 1.9cm x 0.2cm with mixed fibrotic and necrotic wound base. Mild serosanguinous drainage on previous bandage. No gaurav wound erythema, no malodor, no probe to bone, no purulence, no tracking or tunneling noted, no clinical signs of infection . Additional necrotic eschar noted to lateral malleolus with no gaurav wound erythema, no drainage, no malodor , no probe to bone. Right: Deep tissue injury noted on the plantar medial aspect of the heel with no break in skin or soft tissue noted. No fluctuance, no bogginess, no clinical signs of infection. Neuro - gross and protective sensation grossly intact Ortho - moderate pain on palpation to bilateral heels - Neurological Exam Neurological Exam: Alert - Psychiatric Exam Psychiatric exam: Normal Affect, Normal Mood Assessment and Plan - Assessment and Plan (Free Text) Assessment: 87 y/o male with 1) left posteroplantar heel ulceration and lateral malleolar ulceration secondary to pressure and 2) bilateral plantar heel deep tissue injuries secondary to pressure Plan: Pt seen and evaluated at bedside Discussed plan with Dr. Hewitt Pt afebrile, WBC 20.3 X-rays - negative for OM or any acute osseous changes Left foot MRI reveals possible early acute OM of left calcaneus Continue IV abx Left heel ulcer and lateral malleolus necrotic eschar dressed with Santyl and Optifoam bandage; R heel with Optifoam bandage for protection Heel pads reapplied, to be worn at all times in bed Pt likely to go on inpatient hospice, will be followed every other day by podiatry for wound care Will continue to follow patient and perform local wound care <Judith Hewitt - Last Filed: 12/23/17 18:57> Objective - Vital Signs/Intake and Output Vital Signs (last 24 hours): Temp Pulse Resp BP Pulse Ox 97.8 F 90 20 150/80 94 L 12/21/17 06:00 12/21/17 06:00 12/21/17 06:00 12/21/17 11:00 12/21/17 06:00 - Labs Labs: 12/19/17 06:30 12/19/17 06:30 PT 16.4 SECONDS (9.4-12.5) H 12/11/17 10:00 INR 1.42 (0.93-1.08) H 12/11/17 10:00 APTT 30.3 Seconds (25.1-36.5) 12/11/17 10:00 Attending/Attestation - Attestation I have personally seen and examined this patient.: Yes I have fully participated in the care of the patient.: Yes I have reviewed all pertinent clinical information, including history, physical exam and plan: Yes
--- NOTE | 2017-12-20 11:34 | CP.PCM.PN ---
Subjective - Date & Time of Evaluation Date of Evaluation: 12/20/17 Time of Evaluation: 10:20 - Subjective Subjective: No new events, no fevers. Objective - Vital Signs/Intake and Output Vital Signs (last 24 hours): Temp Pulse Resp BP Pulse Ox 98.0 F 76 16 141/74 94 L 12/19/17 22:00 12/19/17 22:00 12/19/17 22:00 12/19/17 22:00 12/19/17 22:00 Intake and Output: 12/20/17 12/20/17 06:59 18:59 Intake Total 0 Output Total 1220 Balance -1220 - Medications Medications: Current Medications Acetaminophen (Tylenol 650mg/20.3ml Solution Ud) 650 mg PEG Q6H PRN PRN Reason: Pain, Mild (1-3) Albuterol/Ipratropium (Duoneb 3 Mg/0.5 Mg (3 Ml) Ud) 3 ml IH [id number] [facility] Last Admin: 12/20/17 07:24 Dose: 3 ml Arformoterol Tartrate (Brovana) 15 mcg IH [id number] [facility] Last Admin: 12/20/17 07:24 Dose: 15 mcg Aspirin (Ecotrin) 81 mg PO DAILY [facility] Last Admin: 12/19/17 10:59 Dose: 81 mg Budesonide (Pulmicort Respules) 0.25 mg IH [id number] [facility] Last Admin: 12/20/17 07:24 Dose: 0.25 mg Doxycycline Hyclate (Doryx) 100 mg PO Q12 [facility] PRN Reason: Protocol Last Admin: 12/19/17 23:32 Dose: 100 mg Enoxaparin Sodium (Lovenox) 30 mg SC DAILY [facility] PRN Reason: Protocol Last Admin: 12/19/17 10:57 Dose: 30 mg Metronidazole (Flagyl) 500 mg in 100 mls @ 100 mls/hr IVPB Q8 [facility] PRN Reason: Protocol Stop: 12/20/17 19:03 Last Admin: 12/19/17 21:33 Dose: 100 mls/hr Cefepime HCl (Maxipime 1gm) 1 gm in 100 mls @ 100 mls/hr IVPB Q12 [facility] PRN Reason: Protocol Stop: 12/22/17 22:01 Last Admin: 12/19/17 21:34 Dose: 100 mls/hr Losartan Potassium (Cozaar) 50 mg GT QPM [facility] Last Admin: 12/19/17 18:05 Dose: 50 mg Metoprolol Tartrate (Lopressor) 100 mg GT BID [facility] Last Admin: 12/19/17 18:05 Dose: 100 mg Oxycodone/Acetaminophen (Percocet 5/325 Mg Tab) 1 tab PO Q4H PRN PRN Reason: Pain, moderate (4-7) Stop: 12/21/17 13:48 Last Admin: 12/19/17 11:04 Dose: 1 tab Pantoprazole Sodium (Protonix Inj) 20 mg IVP DAILY [facility] Last Admin: 12/19/17 10:56 Dose: 20 mg Potassium Chloride (Potassium Chloride Oral Soln) 20 meq GT DAILY [facility] Last Admin: 12/19/17 10:56 Dose: 20 meq Vancomycin HCl (Vancocin 25 Mg/Ml (Oral Use)) 250 mg PO QID [facility] PRN Reason: Protocol Stop: 12/20/17 19:04 Last Admin: 12/19/17 23:33 Dose: 250 mg - Labs Labs: 12/19/17 06:30 12/19/17 06:30 PT 16.4 SECONDS (9.4-12.5) H 12/11/17 10:00 INR 1.42 (0.93-1.08) H 12/11/17 10:00 APTT 30.3 Seconds (25.1-36.5) 12/11/17 10:00 - Constitutional Appears: Chronically Ill - Head Exam Head Exam: NORMAL INSPECTION - ENT Exam ENT Exam: Mucous Membranes Moist - Neck Exam Neck Exam: absent: Meningismus - Respiratory Exam Respiratory Exam: Decreased Breath Sounds - Cardiovascular Exam Cardiovascular Exam: +S1, +S2 - GI/Abdominal Exam GI & Abdominal Exam: Soft. absent: Tenderness Assessment and Plan - Assessment and Plan (Free Text) Plan: Assessment sepsis due to C. diff. colitis, acute cholecystitis and left heel osteomyelitis history of severe sepsis due to left gluteal necrotizing fasciitis S/P debridement with multiple organisms growing from the wound S/P repeat debridement history of severe sepsis S/P acute renal failure due to intra-abdominal infection with ascending colitis in this patient who developed right sided pneumohydrothorax S/P right sided chest tube placement history of severe sepsis with acute renal failure due to HCAP TIA COPD dementia HTN osteoarthritis chronic CHF cataracts Plan continue PO Vancomycin to complete 14 days of therapy (day 9) continue Cefepime and Flagyl and PO Doxycycline - may switch Cefepime and Flagyl to Zosyn together with Doxycycline to complete 4-6 weeks of therapy with weekly ESR, CRP, CBC, CMP while on antibiotics overall prognosis is poor and patient may be placed on hospice as per Nurse practitioner handling his case
[2017-12-20] MEDS: metroNIDAZOLE IV 500 mg/100 ml 500 MG/100 ML BAG IVPB SCH (13:40)
[2017-12-21] MEDS: Albuterol-Ipratrop 3 mg / 0.5 (3 ml) UD IH SCH ×2 (01:10→07:26)
[2017-12-21] MEDS: Budesonide 0.25 mg/2 ml Inhal Susp UD IH SCH (07:26)
[2017-12-21] MEDS: Arformoterol 15 mcg/2 ml Inh Sol IH SCH (07:26)
[2017-12-21 08:13] VITALS: PULSE 90; RESP 20; TEMP 97.8; O2SAT 94
[2017-12-21] MEDS: Enoxaparin 30 mg Syringe SC SCH (11:01)
[2017-12-21] MEDS: Potassium Chloride 20 mEq/15 ml LIQ UD GT SCH (11:02)
[2017-12-21] MEDS: Cefepime 1gm in NS 100ml 1 GM/100 ML BAG IVPB SCH (11:03)
[2017-12-21 11:12] VITALS: BP 150/80
--- NOTE | 2017-12-21 12:53 | PN ---
DATE: 12/20/2017 SUBJECTIVE: The patient is comfortable, no distress, agreed about hospice care. We will restart it as home hospice care. At this time. the patient seems comfortable, does notice pain while changing the wound in the heel area and the patient seems getting the feeding, no distress, awake and alert. PHYSICAL EXAMINATION: VITAL SIGNS: On 12/20, temperature 97.7, heart rate 76, blood pressure 143/73, respirations 18, sat 97% on room air. HEAD AND NECK: Normal. NECK: No JVD, no thyromegaly. CHEST: Clear bilaterally. CARDIAC: First sound and second sound normal. ABDOMEN: Soft, nontender. PEG tube site clean. EXTREMITIES: No edema. The patient has cushions on both heels with dressing for the wound. NEUROLOGIC: The patient is alert and awake, but he has dysarthria and he is bedridden from left hemiplegia. IMPRESSION AND PLAN: 1. Sepsis with multiple sources, the patient has acute cholecystitis with positive HIDA scan, non-visualized pneumonia, decubiti, urinary tract infections, bilateral heel osteomyelitis. Continue antibiotic for now. Hospice care at home. 2. Pain due to multiple sources, we will start the patient on Duragesic 12.5 every 3 days, see how he does that. 3. Chronic obstructive pulmonary disease, cerebrovascular accident, pneumonia, urinary tract infection, sepsis, sacral decubitus stage IV, heel decubiti both, cholecystitis. Continue Maxipime, continue doxycycline, continue nebulizer treatment Brovana. 4. Electrolyte abnormality. Continue potassium, continue feedings through the percutaneous endoscopic gastrostomy tube at 40 mL per hour plus the flush 200 mL 4 times a day, seems doing better. 5. For his high blood pressure, continue Cozaar. Continue Lovenox for deep venous thrombosis prophylaxis and Ecotrin for cerebrovascular accident 81 mg and Protonix 20 mg IV daily. The patient will be transferred to hospice care at home. At this time, continue current therapy. Cody Aguilar MD
--- NOTE | 2017-12-21 13:28 | CP.PCM.PN ---
Subjective - Date & Time of Evaluation Date of Evaluation: 12/21/17 Time of Evaluation: 10:00 - Subjective Subjective: No new events, no diarrhea, no fevers. Objective - Vital Signs/Intake and Output Vital Signs (last 24 hours): Temp Pulse Resp BP Pulse Ox 97.8 F 90 20 149/77 94 L 12/21/17 06:00 12/21/17 06:00 12/21/17 06:00 12/21/17 06:00 12/21/17 06:00 Intake and Output: 12/21/17 12/21/17 06:59 18:59 Output Total 1915 Balance -1915 - Medications Medications: Current Medications Albuterol/Ipratropium (Duoneb 3 Mg/0.5 Mg (3 Ml) Ud) 3 ml IH [id number] [facility] Last Admin: 12/21/17 07:26 Dose: 3 ml Arformoterol Tartrate (Brovana) 15 mcg IH [id number] [facility] Last Admin: 12/21/17 07:26 Dose: 15 mcg Aspirin (Ecotrin) 81 mg PO DAILY [facility] Last Admin: 12/20/17 09:37 Dose: 81 mg Budesonide (Pulmicort Respules) 0.25 mg IH [id number] [facility] Last Admin: 12/21/17 07:26 Dose: 0.25 mg Doxycycline Hyclate (Doryx) 100 mg PO Q12 [facility] PRN Reason: Protocol Last Admin: 12/20/17 21:25 Dose: 100 mg Enoxaparin Sodium (Lovenox) 30 mg SC DAILY [facility] PRN Reason: Protocol Last Admin: 12/20/17 09:45 Dose: 30 mg Fentanyl (Duragesic) 1 patch TD Q72H [facility] Last Admin: 12/20/17 17:38 Dose: 1 patch Cefepime HCl (Maxipime 1gm) 1 gm in 100 mls @ 100 mls/hr IVPB Q12 [facility] PRN Reason: Protocol Stop: 12/22/17 22:01 Last Admin: 12/20/17 21:25 Dose: 100 mls/hr Losartan Potassium (Cozaar) 50 mg GT QPM [facility] Last Admin: 12/20/17 17:35 Dose: 50 mg Metoprolol Tartrate (Lopressor) 100 mg GT BID [facility] Last Admin: 12/20/17 17:35 Dose: 100 mg Pantoprazole Sodium (Protonix Inj) 20 mg IVP DAILY [facility] Last Admin: 12/20/17 09:46 Dose: 20 mg Potassium Chloride (Potassium Chloride Oral Soln) 20 meq GT DAILY [facility] Last Admin: 12/20/17 09:46 Dose: 20 meq - Labs Labs: 12/19/17 06:30 12/19/17 06:30 PT 16.4 SECONDS (9.4-12.5) H 12/11/17 10:00 INR 1.42 (0.93-1.08) H 12/11/17 10:00 APTT 30.3 Seconds (25.1-36.5) 12/11/17 10:00 - Constitutional Appears: Chronically Ill - Head Exam Head Exam: NORMAL INSPECTION - Respiratory Exam Respiratory Exam: Decreased Breath Sounds - Cardiovascular Exam Cardiovascular Exam: +S1, +S2 - GI/Abdominal Exam GI & Abdominal Exam: Soft. absent: Tenderness Assessment and Plan - Assessment and Plan (Free Text) Plan: Assessment sepsis due to C. diff. colitis, acute cholecystitis and left heel osteomyelitis history of severe sepsis due to left gluteal necrotizing fasciitis S/P debridement with multiple organisms growing from the wound S/P repeat debridement history of severe sepsis S/P acute renal failure due to intra-abdominal infection with ascending colitis in this patient who developed right sided pneumohydrothorax S/P right sided chest tube placement history of severe sepsis with acute renal failure due to HCAP TIA COPD dementia HTN osteoarthritis chronic CHF cataracts Plan continue PO Vancomycin to complete 14 days of therapy (day 10) continue Cefepime and Flagyl and PO Doxycycline - may switch Cefepime and Flagyl to Zosyn together with Doxycycline to complete 4-6 weeks of therapy with weekly ESR, CRP, CBC, CMP while on antibiotics overall prognosis is poor and patient may be placed on hospice as per Nurse practitioner handling his case
--- NOTE | 2017-12-21 14:13 | PN ---
DATE: 12/19/2017 SUBJECTIVE: The patient is comfortable. He gets pain occasionally from wound in both heels. No respiratory distress. No vomiting. He is on feeding. Family discussion contacted the daughter, discussed hospice, family seems approving hospice, we will proceed more. PHYSICAL EXAMINATION: VITAL SIGNS: Temperature is 98, heart rate 76, blood pressure 141/74, respirations 16, saturating 94% on room air. HEAD AND NECK: Normal. NECK: No JVD. No thyromegaly. CHEST: Diminished breath sounds, but no wheeze. CARDIAC: First sound and second sound normal. ABDOMEN: Soft. Nontender. EXTREMITIES: No edema. There is bilateral heel cushions and wound is covered on the heel area. NEUROLOGIC: The patient has dysphagia. He responds to calling his name and simple questions. LABORATORY DATA: White count 20.3, hemoglobin 9.7, hematocrit 29.8, platelets 277. Chemistry: Sodium 143, potassium 4.3, chloride 110, bicarb 23, BUN 16, creatinine 0.8. Blood sugar 126, calcium 7.7. Magnesium is normal at 1.9. Alkaline phosphatase 139. IMPRESSION AND PLAN: Sepsis due to multifactorial pneumonia, cholecystitis, sacral decubitus stage IV wound and bilateral heel osteomyelitis. PLAN: 1. Continue current antibiotics. We will discuss with family about hospice care. At this time, continue current therapy. 2. Stage IV sacral decubitus with bilateral heel decubiti and continue antibiotic, local wound care. 3. Chronic obstructive pulmonary disease, dementia. 4. The patient does have cerebrovascular accident, percutaneous endoscopic gastrostomy tube feeding, continue feeding and we will advance as tolerated. We will go up to 40 mL plus flush the tube 200 mL of H20. 5. Dementia, severe disability, bedridden, cerebrovascular accident with left hemiplegia and dysarthria. We will continue current therapy. Continue supportive care for now. Cody Aguilar MD
--- NOTE | 2017-12-21 18:09 | CP.PCM.PN ---
Subjective - Date & Time of Evaluation Date of Evaluation: 12/21/17 Time of Evaluation: 10:15 - Subjective Subjective: S&E at bedside, chart reviewed, patient is awake but nonverbal. No acute overnight events reported. No N/V, on PEG feedings, no high residuals reported. No reports of diarrhea or overt GI bleeding. Objective - Vital Signs/Intake and Output Vital Signs (last 24 hours): Temp Pulse Resp BP Pulse Ox 97.8 F 90 20 149/77 94 L 12/21/17 06:00 12/21/17 06:00 12/21/17 06:00 12/21/17 06:00 12/21/17 06:00 Intake and Output: 12/21/17 12/21/17 06:59 18:59 Output Total 1915 Balance -1915 - Medications Medications: Current Medications Albuterol/Ipratropium (Duoneb 3 Mg/0.5 Mg (3 Ml) Ud) 3 ml IH [id number] [facility] Last Admin: 12/21/17 07:26 Dose: 3 ml Arformoterol Tartrate (Brovana) 15 mcg IH [id number] [facility] Last Admin: 12/21/17 07:26 Dose: 15 mcg Aspirin (Ecotrin) 81 mg PO DAILY [facility] Last Admin: 12/20/17 09:37 Dose: 81 mg Budesonide (Pulmicort Respules) 0.25 mg IH [id number] [facility] Last Admin: 12/21/17 07:26 Dose: 0.25 mg Doxycycline Hyclate (Doryx) 100 mg PO Q12 [facility] PRN Reason: Protocol Last Admin: 12/20/17 21:25 Dose: 100 mg Enoxaparin Sodium (Lovenox) 30 mg SC DAILY [facility] PRN Reason: Protocol Last Admin: 12/20/17 09:45 Dose: 30 mg Fentanyl (Duragesic) 1 patch TD Q72H [facility] Last Admin: 12/20/17 17:38 Dose: 1 patch Cefepime HCl (Maxipime 1gm) 1 gm in 100 mls @ 100 mls/hr IVPB Q12 [facility] PRN Reason: Protocol Stop: 12/22/17 22:01 Last Admin: 12/20/17 21:25 Dose: 100 mls/hr Losartan Potassium (Cozaar) 50 mg GT QPM [facility] Last Admin: 12/20/17 17:35 Dose: 50 mg Metoprolol Tartrate (Lopressor) 100 mg GT BID [facility] Last Admin: 12/20/17 17:35 Dose: 100 mg Pantoprazole Sodium (Protonix Inj) 20 mg IVP DAILY [facility] Last Admin: 12/20/17 09:46 Dose: 20 mg Potassium Chloride (Potassium Chloride Oral Soln) 20 meq GT DAILY [facility] Last Admin: 12/20/17 09:46 Dose: 20 meq - Labs Labs: 12/19/17 06:30 12/19/17 06:30 PT 16.4 SECONDS (9.4-12.5) H 12/11/17 10:00 INR 1.42 (0.93-1.08) H 12/11/17 10:00 APTT 30.3 Seconds (25.1-36.5) 12/11/17 10:00 - Constitutional Appears: No Acute Distress - Head Exam Head Exam: NORMOCEPHALIC - Eye Exam Eye Exam: Normal appearance. absent: Scleral icterus - ENT Exam ENT Exam: Mucous Membranes Moist - Respiratory Exam Respiratory Exam: NORMAL BREATHING PATTERN. absent: Respiratory Distress - Cardiovascular Exam Cardiovascular Exam: +S1 - GI/Abdominal Exam GI & Abdominal Exam: Soft, Normal Bowel Sounds. absent: Guarding, Tenderness, Rebound Additional comments: (+) PEG in place, non tender - Extremities Exam Extremities Exam: absent: Calf Tenderness - Neurological Exam Neurological Exam: Awake - Skin Skin Exam: Dry Assessment and Plan - Assessment and Plan (Free Text) Assessment: ASSESSMENT: Abdominal Pain Fever Sepsis Cdiff Dysphagia, w/ PEG Enlarged GB w cholelithiasis, concern with Acute Cholecystitis H/O CVA PLAN: on oral antibiotics as per ID continue PEG feeds as tolerated continue supportive care poor prognosis patient is going home on hospice as planned with family and palliative service Seen and discussed with Dr. Valerio.
--- NOTE | 2017-12-23 18:52 | PQF ---
PROVIDER RESPONSE TEXT: Provider was unable to determine a response for this query. REVIEWER QUERY TEXT: Debridement Type Debridement is documented in the Medical Record. Please specify the type and extent of debridement to include the method and instruments used. Depth of tissue removed: Such as: -- Skin -- Subcutaneous tissue -- Fascia -- Muscle -- Bone -- Other, please specify The patient's Clinical Indicators include: Aseptic excisional debridement of left heel decubitus ulcer done by Dr. Chaves on 12/18/17. Please i ndicate the DEPTH of the debridement. Query created by: Mary Lagunas on 12/22/2017 8:03 AM Electronically signed by: Judith Hewitt DPM 12/23/2017 6:48 PM
--- NOTE | 2017-12-26 07:26 | DS ---
HISTORY OF PRESENT ILLNESS: An 87-year-old male, admitted with sepsis, severe stage IV sacral decubitus, COPD, pneumonia and bilateral heel decubitus. The patient was also noted to have acute cholecystitis on the HIDA scan and ultrasound of the gallbladder. While he was in the hospital, on that workup, the patient was given IV antibiotic, meropenem IV. The patient seen by multiple consults, Dr. Zayas, ID consult; GI consult, Dr. Valerio; Podiatry consult, Dr. Judith Hewitt, and also by surgical consult, Dr. Morgan Vizcaino, also Pulmonary consult, Dr. Lynch. The patient also seen by cardiac consultation, Dr. Vázquez. The patient is very sick. The patient is stable, but his prognosis is poor due to his multiple comorbid illnesses, multiple medical problems, sepsis and slowly resolving plus his age and underlying medical conditions. The patient's condition has been discussed with the family for comfort care, hospice care. The patient was initially made DNR/DNI as per family. Spoke with the daughter and the molecular spectroscopist and the patient was made DNR and DNI. Eventually, the patient's family made the patient hospice care and will be done as home hospice care. PHYSICAL EXAMINATION: VITAL SIGNS: Temperature 97.8, heart rate 90, blood pressure 149/77, respirations 20, saturations 95% on room air. HEAD AND NECK: Normal. No JVD. No thyromegaly. CHEST: Bilaterally clear. CARDIAC: First sound and second sound normal. ABDOMEN: Soft, nontender. EXTREMITY: No edema. Bilateral heel cushions and gauze covering to both heel area. NEUROLOGICAL: He is weak, bedridden, left hemiplegia and dysphasia. However, he is alert and intermittent lethargy. LABORATORY DATA: His last laboratory study, white count 20,300, hemoglobin 9.7, hematocrit 29.8, platelets 277. Chemistries: Sodium 143, potassium 4.3, chloride 110, bicarb 23, BUN 16, creatinine 0.8. Sugar 126, calcium 7.7. Liver function test is normal except alk phos slightly elevated at 139. His total protein is low, 5.6; albumin is low, 2.6. While in the hospital, he had MRI of his both heels. He had ultrasound of the liver, CT abdomen and pelvis. Has HIDA scan which shows positive cholecystitis, and seen by multiple specialists as in the above dictation. DISCHARGE DIAGNOSES: 1. Acute cholecystitis. 2. Chronic obstructive pulmonary disease. 3. Osteomyelitis, both heels. 4. Stage IV sacral decubitus. 5. Chronic obstructive pulmonary disease, pneumonia. 6. Sepsis due to underlying medical problems. 7. Hypertension. 8. Cerebrovascular accident. 9. Percutaneous endoscopic gastrostomy tube feeding. PLAN: Discharge the patient to hospice care at home. Discussed with the family and other consultants. Cody Aguilar MD
--- NOTE | 2017-12-26 12:32 | PQF ---
PROVIDER RESPONSE TEXT: Hyperkeratotic skin was excsionally debrided REVIEWER QUERY TEXT: Debridement Type Debridement is documented in the Medical Record. Please specify the type and extent of debridement to include the method and instruments used. Depth of tissue removed: Such as: -- Skin -- Subcutaneous tissue -- Fascia -- Muscle -- Bone -- Other, please specify The patient's Clinical Indicators include: Aseptic excisional debridement of left heel decubitus ulcer done by Dr. Chaves on 12/18/17. Please i ndicate the DEPTH of the debridement. Query created by: Afshan Amos on 12/25/2017 2:18 PM Electronically signed by: Valdez Sr DPM 12/26/2017 12:29 PM
--- NOTE | 2017-12-28 08:33 | PQF ---
PROVIDER RESPONSE TEXT: Patient is malnourished because recurrent gastrointestinal illness. , that requires holding GI. Feedi ng. Plus he had CVA which in previous admission family decided to put the PEG tube. ,plus currently h ad diarrhea, sepsis from different sources that combined factors result in low BMI. And malnourishmen t. REVIEWER QUERY TEXT: Clarification of Clinical Diagnostic Findings Please clarify documentation or clinical relevance for the clinical / diagnostic findings or whether those are insignificant or unable to be further specified. The patient's Clinical Indicators include: documentation of malnourished state with BMI=14.6 with hypoalbuminemia in the progress notes. Please clarify if you are treating for malnutrition. Query created by: Mary Lagunas on 12/22/2017 7:45 AM Electronically signed by: Cody Aguilar MD 12/28/2017 8:30 AM
== END 2017-12-21 13:16 | disposition hospice, home (50) | DRG 871 ==
LOC: ED 08:44 → ERH 12:03 → 5RNO 13:57
PROVIDERS: ADMIT Internal Medicine; ATTEND Internal Medicine
PROC: 30233N1 Transfusion of Nonautologous Red Blood Cells into Peripheral Vein, Percutaneous Approach (ICD-10-PCS; principal; 2017-12-13)
PROC: 0HBNXZZ Excision of Left Foot Skin, External Approach (ICD-10-PCS; 2017-12-18)
DX: A41.9 Sepsis, unspecified organism (principal); L89.154 Pressure ulcer of sacral region, stage 4; L89.624 Pressure ulcer of left heel, stage 4; J18.9 Pneumonia, unspecified organism; M72.6 Necrotizing fasciitis; A04.72 Enterocolitis due to Clostridium difficile, not specified as recurrent; N17.9 Acute kidney failure, unspecified; I13.0 Hypertensive heart and chronic kidney disease with heart failure and stage 1 through stage 4 chronic kidney disease, or unspecified chronic kidney disease; E87.0 Hyperosmolality and hypernatremia; J44.0 Chronic obstructive pulmonary disease with (acute) lower respiratory infection; J98.11 Atelectasis; K80.00 Calculus of gallbladder with acute cholecystitis without obstruction; N39.0 Urinary tract infection, site not specified; I69.354 Hemiplegia and hemiparesis following cerebral infarction affecting left non-dominant side; M86.8X7 Other osteomyelitis, ankle and foot; Z68.1 Body mass index [BMI] 19.9 or less, adult; E46 Unspecified protein-calorie malnutrition; R65.20 Severe sepsis without septic shock; E87.6 Hypokalemia; I50.9 Heart failure, unspecified; M19.90 Unspecified osteoarthritis, unspecified site; E86.0 Dehydration; N18.9 Chronic kidney disease, unspecified; E78.00 Pure hypercholesterolemia, unspecified; E83.42 Hypomagnesemia; L89.619 Pressure ulcer of right heel, unspecified stage; Y95 Nosocomial condition; H26.9 Unspecified cataract; M75.52 Bursitis of left shoulder; D64.9 Anemia, unspecified; E88.09 Other disorders of plasma-protein metabolism, not elsewhere classified; F03.90 Unspecified dementia, unspecified severity, without behavioral disturbance, psychotic disturbance, mood disturbance, and anxiety; R13.10 Dysphagia, unspecified; I69.319 Unspecified symptoms and signs involving cognitive functions following cerebral infarction; Z87.891 Personal history of nicotine dependence; Z74.01 Bed confinement status; Z93.1 Gastrostomy status; Z79.82 Long term (current) use of aspirin; I69.322 Dysarthria following cerebral infarction; Z51.5 Encounter for palliative care; Z66 Do not resuscitate